=== PATIENT | female | born 1960 | race Caucasian/White ===

== ENCOUNTER 2022-10-10 03:06 | Outpatient (CLI) | payer OTHER, SELFPAY ==
[2022-10-10 08:01] LABS: ALT 25 U/L (14-59); AST 24 U/L (15-37); Albumin 3.9 g/dL (3.4-5.0); Alkaline Phosphatase 72 U/L (46-116); Anion Gap 9.4 mmol/L (3-11); BUN 13 mg/dL (7-18); Bilirubin, Total 0.5 mg/dL (0.2-1.0); CO2 26.6 mmol/L (21.0-32.0); CREATININE 0.7 mg/dL (0.55-1.02); Calcium 9.2 mg/dL (8.5-10.1); Calculated LDL 118 mg/dL (<100); Chloride 99 mmol/L (98-107); Cholesterol 219 mg/dL (<200); Estimated GFR 97.12 (mL/min/1.73m2); Glucose 111 mg/dL (74-106); HDL Cholesterol 90 mg/dL (40-60); Potassium 3.8 mmol/L (3.5-5.1); Sodium 135 mmol/L (136-145); Total Protein 7.7 g/dL (6.4-8.2); Triglyceride 57 mg/dL (<150)
== END 2022-10-10 03:07 | disposition home or self-care (01) ==
LOC: LBO 03:06
PROVIDERS: Visit Provider Nurse Practitioner Adult Health
DX: E78.00 Pure hypercholesterolemia, unspecified (principal); Z00.00 Encounter for general adult medical examination without abnormal findings; I10 Essential (primary) hypertension
CPT/HCPCS: 36415; 80053; 80061

== ENCOUNTER 2022-12-17 01:10 | Outpatient (CLI) | payer OTHER, SELFPAY ==
--- NOTE | 2022-12-17 15:15 | DI.RAD_ITS ---
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 TECHNIQUE: 2D digital imaging was performed. Three views. COMPARISON: No exams were available for comparison FINDINGS: BONES: No acute fracture is present. No bony destructive lesion is seen. JOINTS: The knee is normally aligned. No joint effusion is seen. Mild periarticular spurring. SOFT TISSUE: Normal. IMPRESSION: Mild degenerative changes DATA REPOSITORY: RADIATION DOSE DELIVERED:
== END 2022-12-17 01:30 ==
PROVIDERS: Visit Provider Nurse Practitioner Adult Health
DX: M25.562 Pain in left knee (principal); M25.862 Other specified joint disorders, left knee; G89.29 Other chronic pain
CPT/HCPCS: 73562

== ENCOUNTER 2022-12-24 15:24 | Outpatient (CLI) | payer OTHER, SELFPAY ==
--- NOTE | 2022-12-24 13:45 | DI.RAD_ITS ---
Exam(s) XR SHOULDER LT COMPLETE 2+V EXAM: XR SHOULDER LT COMPLETE 2+V CLINICAL HISTORY: Bilateral shoulder pain. TECHNIQUE: 2D digital imaging was performed of the left shoulder. Two images were obtained. AP and axillary views were obtained. COMPARISON: No exams were available for comparison FINDINGS: BONES: No acute fracture is present. No bony destructive lesion is seen. JOINTS: No dislocation present. There is near complete loss of the glenohumeral joint space. Mild owen bchondral sclerosis and periarticular spurring is seen. The acromioclavicular joint is unremarkable. SOFT TISSUE: Normal. IMPRESSION: Osteoarthritis of the left shoulder. DATA REPOSITORY: RADIATION DOSE DELIVERED:
--- NOTE | 2022-12-24 13:45 | DI.RAD_ITS ---
Exam(s) XR SHOULDER RT COMPLETE 2+V EXAM: XR SHOULDER RT COMPLETE 2+V CLINICAL HISTORY: bilateral shoulder pain. TECHNIQUE: 2D digital imaging was performed of the right shoulder. Two images were obtained. AP an d axillary views were obtained. COMPARISON: No exams were available for comparison FINDINGS: BONES: No acute fracture is present. No bony destructive lesion is seen. JOINTS: No dislocation present. Moderately severe degenerative changes are seen at the glenohumeral j oint with near complete loss of the glenohumeral joint space. There is also subchondral sclerosis an d periarticular spurring present. Mild degenerative changes are seen at the acromioclavicular joint. SOFT TISSUE: Normal. IMPRESSION: Osteoarthritis of the right shoulder. DATA REPOSITORY: RADIATION DOSE DELIVERED:
== END 2022-12-24 15:25 | disposition home or self-care (01) ==
LOC: DIORS 15:24
PROVIDERS: PCP Nurse Practitioner Adult Health; Referring Provider Nurse Practitioner Adult Health; Visit Provider Student in an Organized Health Care Education/Training Program
DX: M25.511 Pain in right shoulder (principal); M25.512 Pain in left shoulder; M19.011 Primary osteoarthritis, right shoulder; M19.012 Primary osteoarthritis, left shoulder
CPT/HCPCS: 73030

== ENCOUNTER 2023-01-09 02:28 | Outpatient (CLI) | payer OTHER, SELFPAY ==
--- NOTE | 2023-01-09 14:57 | DI.RAD_ITS ---
Exam(s) RF JOINT INJECTION FLUORO GUID EXAM: RF JOINT INJECTION FLUORO GUID CLINICAL HISTORY: R SHOULDER PAIN,fluoro guided injection,arthritis, m19.011 TECHNIQUE: Fluoroscopy provided. Radiologist not present. CONTRAST MATERIAL: None COMPARISON: No exams were available for comparison FINDINGS: Fluoroscopy was provided for Dr. Wells during right shoulder injection. Please refer to the procedure report for complete details. Cumulative Dose: Ka,r=0.134 mGy IMPRESSION: RADIATION DOSE DELIVERED:
--- NOTE | 2023-01-09 15:05 | W.PROCNOTE ---
Date of service: 01/09/23 Time of Service: 15:05 Procedure Note Date of procedure: 01/09/23 Procedure: Right Shoulder Injection Surgeon/Proceduralist/Physician: Clint Wells Procedure Diagnosis: Right Glenohumeral Arthritis Procedure Indications: Pat has had persistent pain of the RIGHT shoulder. Noninvasive measures have been tried. To serve as both diagnostic and therapeutic, an injection under fluoroscopy was recommended. I had discussed the risks of the procedure and the patient elected to proceed. Procedure Description: Pat was greeted in the flouroscopy room. The correct side was identified and the consent was reviewed with the patient and signed. The patient was then placed in the supine position on the fluoroscopy table. The RIGHT shoulder was then prepped with Chloraprep. The anterior injection starting point was identiifed by bony landmarks and fluoroscopy. The skin and soft tissue in the tract of the injection was anesthetized with 1% Lidocaine. A spinal needle was then inserted deep into the shoulder joint at the level of the recess between the glenoid and superior humeral head. A small amount of Omnipaque solution was injected to confirm intraarticular placement. Once confirmed, the shoulder was injected with 5cc of 0.5% Bupivicaine and 80mg of Depo-Medrol. A bandaid was placed on the injection site. The patient tolerated the procedure well.
[2023-01-09] MEDS: Bupivacaine 0.5% Pres-Free 10 ML VIAL 5 ML IJ (15:28)
[2023-01-09] MEDS: methylPREDNISolone ACETATE 80 MG/ML VIAL IM (15:29)
== END 2023-01-09 02:48 ==
LOC: DI 02:28
PROVIDERS: PCP Nurse Practitioner Adult Health; Visit Provider Student in an Organized Health Care Education/Training Program
DX: M19.011 Primary osteoarthritis, right shoulder (principal)
CPT/HCPCS: 20610; 77002; J1040

== ENCOUNTER 2023-01-15 01:25 | Outpatient (CLI) | payer OTHER, SELFPAY ==
--- NOTE | 2023-01-15 07:45 | DI.RAD_ITS ---
Exam(s) XR HIP RT COMPLETE AP PELVIS EXAM: XR HIP RT COMPLETE AP PELVIS CLINICAL HISTORY: eval R hip pain, m25.551. TECHNIQUE: 2D digital imaging was performed. COMPARISON: No exams were available for comparison FINDINGS: Two views: No evidence of pelvic nor hip fracture. There is minimal narrowing of the right hip joint space. No osteophytes seen. Bone density normal. No osseous lesions. SI joints unremarkable. Facet arthr opathy noted at L5-S1 level. IMPRESSION: No fractures. DATA REPOSITORY: RADIATION DOSE DELIVERED:
--- NOTE | 2023-01-15 07:45 | DI.CT_ITS ---
Exam(s) CT UPPER EXTREMITY LT WO EXAM: CT UPPER EXTREMITY LT WO CLINICAL HISTORY: PREOPERATIVE PLANNING,traumatic tear lt rotator cuff,arthritis lt TECHNIQUE: Imaging Protocol: Axial computed tomography images with coronal and sagittal reformatted images were created and reviewed. CONTRAST MATERIAL: Intravenous: Omnipaque 350 Contrast volume:structured data in ml Contrast route:I V - Oral: yes / no COMPARISON: No exams were available for comparison FINDINGS: No evidence of fracture or dislocation. Advanced severe osteoarthritic degenerative changes in the glenohumeral joint with [id number] joint space narrowing and degenerative subarticular cysts on both sides the joint space. The largest of t hese measures 10 x 9 mm in the subarticular humeral head. Also osman-type osteophyte evident on the inferior articular surface of the humeral head. AC joint exhibits only minimal degenerative changes. There are no calcifications evident in the late ral subacromial space. Small subtle calcifications are noted in the medial subacromial space. There also calcific densities noted medial to the neck of the humerus which are probably calcifications wi thin the inferior recess. Smaller calcification is noted in the medial subcoracoid recess. IMPRESSION: Severe advanced osteoarthritic degenerative changes in the left shoulder glenohumeral joint. RADIATION DOSE DELIVERED: 817.03mGy.cm Total DLP DATA REPOSITORY: All CT scans at this facility are submitted to the National Radiology Data Registry (NRDR) Dose Index Registry (DIR) with the [employer] (A[employer]). RADIATION OPTIMIZATION: All CT scans at this facility use at least one of these dose optimization te chniques: automated exposure control; mA and/or kV adjustment per patient size (includes targeted exa ms where dose is matched to clinical indication); or iterative reconstruction.
== END 2023-01-15 01:45 ==
PROVIDERS: PCP Nurse Practitioner Adult Health; Visit Provider Student in an Organized Health Care Education/Training Program
DX: M25.512 Pain in left shoulder (principal); M19.012 Primary osteoarthritis, left shoulder; M25.812 Other specified joint disorders, left shoulder; M25.551 Pain in right hip
CPT/HCPCS: 73200; 73502

== ENCOUNTER 2023-01-17 01:03 | Outpatient (CLI) | payer OTHER, SELFPAY ==
--- NOTE | 2023-01-17 08:15 | DI.MRI_ITS ---
Exam(s) MR UPPER JOINT LT WO EXAM: MR UPPER JOINT LT WO CLINICAL HISTORY: PREOPERATIVE PLANning,traumatic tear lt rotator cuff,arthritis lt glenohum. TECHNIQUE: Multiplanar multisequence MRI was performed. COMPARISON: Plain films [address] of the shoulder January 26 FINDINGS: BONES: There is no fracture or contusion pattern. JOINTS:The acromioclavicular joint shows mild degenerative changes. No evidence of impingement the g lenohumeral joint shows severe degenerative changes, with obliteration of the joint space and severe cartilage erosions extending down to bone. There is some remodeling of the glenoid. Multiple subcho ndral cysts are noted in the humeral head and glenoid. Small joint effusion. Multiple loose bodies are noted within the inferior recess as well as in the subcoracoid bursa. Synovial debris also prese nt. TENDONS: Supraspinatus: Unremarkable. Infraspinatus: Unremarkable. Subscapularis: Unremarkable. Teres Minor: Unremarkable. Biceps and Kent: Unremarkable. MUSCLES: Unremarkable. No significant atrophy. No edema. GLENOID LABRUM: Severely degenerated. SOFT TISSUES: Unremarkable. OTHER: Subacromial and subdeltoid bursae shows no fluid. . IMPRESSION: Severe degenerative changes of the glenohumeral joint. Joint effusion with multiple loose bodies and synovial debris. No evidence of rotator cuff tendon tear. DATA REPOSITORY:
== END 2023-01-17 01:23 ==
LOC: DI 01:03
PROVIDERS: PCP Nurse Practitioner Adult Health; Visit Provider Student in an Organized Health Care Education/Training Program
DX: M19.012 Primary osteoarthritis, left shoulder (principal); S46.012A Strain of muscle(s) and tendon(s) of the rotator cuff of left shoulder, initial encounter
CPT/HCPCS: 73221

== ENCOUNTER 2023-02-06 01:01 | Outpatient (CLI) | payer OTHER, SELFPAY ==
--- NOTE | 2023-02-06 15:35 | DI.RAD_ITS ---
Exam(s) RF JOINT INJECTION FLUORO GUID EXAM: RF JOINT INJECTION FLUORO GUID CLINICAL HISTORY: R HIP INJ UNDER FLUORO,rt hip pain, m25.551 TECHNIQUE: 2D and realtime digital imaging was performed. CONTRAST MATERIAL: Refer to procedure report. COMPARISON: No exams were available for comparison FINDINGS: Fluoroscopy was provided for Dr. Wells during the performance of a right hip injection. Please r efer to the procedure report for complete details. Ka,r=1.29 mGy IMPRESSION: RADIATION DOSE DELIVERED:
[2023-02-06] MEDS: methylPREDNISolone ACETATE 80 MG/ML VIAL IM (15:38)
[2023-02-06] MEDS: Omnipaque 300 MG/ML 10 ML BTL IJ (15:39)
--- NOTE | 2023-02-06 15:40 | W.PROCNOTE ---
Date of service: 02/06/23 Time of Service: 15:40 Procedure Note Date of procedure: 02/06/23 Procedure: Right Hip Injection with Fluoroscopic Guidance Surgeon/Proceduralist/Physician: Clint Wells Procedure Diagnosis: Right Hip Pain Procedure Indications: Cheryl has had persistent pain of the RIGHT hip and groin. She as some bursa symptoms but is most bothered by groin pain with going up stairs and getting out of the chair. Noninvasive measures have been tried. To serve as both diagnostic and therapeutic, an injection under fluoroscopy was recommended. I had discussed the risks of the procedure and the patient elected to proceed. Procedure Description: Cheryl was greeted in the flouroscopy room. The correct side was identified and the consent was reviewed with the patient and signed. The patient was then placed in the supine position on the fluoroscopy table. The RIGHT hip was then prepped with Chloraprep. The anterolateral injection starting point was identiifed by bony landmarks and fluoroscopy. The skin and soft tissue in the tract of the injection was anesthetized with 1% Lidocaine. A spinal needle was then inserted deep into the hip joint at the level of the lateral femoral neck under fluoroscopic guidance. A small amount of Omnipaque solution was injected to confirm intraarticular placement. Once confirmed, the hip was injected with 5cc of 0.5% Bupivicaine and 80mg of Depo-Medrol. A bandaid was placed on the injection site. The patient tolerated the procedure well.
== END 2023-02-06 01:21 ==
LOC: DI 01:01
PROVIDERS: PCP Nurse Practitioner Adult Health; Visit Provider Student in an Organized Health Care Education/Training Program
DX: M25.551 Pain in right hip (principal)
CPT/HCPCS: 20610; 77002; J1040

== ENCOUNTER 2023-03-04 02:48 | Outpatient (CLI) | payer OTHER, SELFPAY ==
--- NOTE | 2023-03-04 | DI.MAMMO_ITS ---
Exam(s) MAMMO SCREENING EXAM: MAMMO SCREENING CLINICAL HISTORY: SCREENING MAMMO FOR BREAST CANCER Z12.31 TECHNIQUE: Mammograms were interpreted according to the usual protocol including computer analysis w [employer] CAD system, tomosynthesis and C-view imaging. COMPARISON: 2015 through 2021 FINDINGS: The breasts are composed of mainly fatty density , Breast Density category A. No suspicious masses or suspicious microcalcifications are seen. No skin thickening or abnormal axillary lymph nodes are seen. There has been no significant change from prior exams. IMPRESSION: BI-RADS Category 1, Negative mammogram Yearly screening mammography is recommended. Breast Density - Category A, fatty density. A negative radiographic report should not delay biopsy if a dominant or clinically suspicious mass is present. Up to ten percent of cancers are not identified on mammography. A negative report may reinforce clinical impression. Adenosis and dense breasts may obscure an underlying neoplasm. False positive reports average 6 to 10%. Patient will receive a letter notifying them of these results.
== END 2023-03-04 03:08 ==
PROVIDERS: PCP Nurse Practitioner Adult Health; Visit Provider Nurse Practitioner Adult Health
DX: Z12.31 Encounter for screening mammogram for malignant neoplasm of breast (principal)
CPT/HCPCS: 77063; 77067

== ENCOUNTER 2023-04-24 01:19 | Outpatient (CLI) | payer OTHER, SELFPAY ==
--- NOTE | 2023-04-24 14:02 | DI.RAD_ITS ---
Exam(s) RF JOINT INJECTION FLUORO GUID EXAM: RF JOINT INJECTION FLUORO GUID CLINICAL HISTORY: PAIN,arthritis rt glenohumeral joint,m19.011,fluoro guided injection,. The Patien t has had persistent Right Shoulder pain. Noninvasive measures have been tried. To serve as both di agnostic and therapeutic, an injection under fluoroscopy was recommended. The risks of the procedure were discussed with their Orthopedic provider and the patient elected to proceed. TECHNIQUE: 2D and realtime digital imaging was performed. CONTRAST MATERIAL: Water soluble contrast was utilized. COMPARISON: No exams were available for comparison FINDINGS: The Patient was greeted in the fluoroscopy room. The correct side was identified and the consent was reviewed with the patient and was signed. The patient was properly positioned on the fluoroscopy ta ble. The Right Shoulderwas then prepped with Chloraprep and draped. The right shoulder injection st arting point was identified by the bony landmarks and fluoroscopy. The skin and soft tissue in the t ract of the injection was anesthetized with 1% Lidocaine. A spinal needle was then inserted into the RightShoulder joint at the level of the glenohumeral joint under fluoroscopic guidance. A small jame unt of Omnipaque solution was injected to confirm intraarticular placement. Once confirmed, the Righ tShoulder was injected with 5cc of a solution containing 0.5% Bupivaine and 80 mg of Depo-Medrol. A bandaid was placed on the injection site. The patient tolerated the procedure well and left the depa rtment in good condition. IMPRESSION: Successful Right Shoulder injection. RADIATION DOSE DELIVERED: Kar=2.13 mGy
[2023-04-24] MEDS: Omnipaque 300 MG/ML 10 ML BTL 5 ML IJ (14:24)
[2023-04-24] MEDS: methylPREDNISolone ACETATE 80 MG/ML VIAL IM (14:25)
[2023-04-24] MEDS: Bupivacaine 0.5% Pres-Free 10 ML VIAL 3 ML IJ (14:26)
[2023-04-24] MEDS: Normal Saline - Diluent 50 ML VIAL 15 ML IJ (14:28)
== END 2023-04-24 01:39 ==
LOC: DI 01:20
PROVIDERS: PCP Nurse Practitioner Adult Health; Visit Provider Student in an Organized Health Care Education/Training Program
DX: M19.011 Primary osteoarthritis, right shoulder (principal)
CPT/HCPCS: 20610; 77002; J1040

== ENCOUNTER 2023-09-05 09:33 | Outpatient (CLI) | payer OTHER, SELFPAY ==
--- NOTE | 2023-09-05 09:30 | RT.EKG_ITS ---
APPROVED REPORT Exam: Resting ECG Reason for Exam: Chest Pain Patient Location: O HR:141 bpm ECG Measurements Heart Rate 141 AXIS SD [id number] P [id number] QRSd 93 QRS 63 QT 304 T 47 QTc 466 Conclusion Atrial fibrillation...V-rate 97-165, irreg A-activity Minimal ST depression, anterolateral leads...ST <-0.04mV, I aVL V2-V6
== END 2023-09-05 09:34 | disposition home or self-care (01) ==
LOC: DI.CM 09:33
PROVIDERS: PCP Nurse Practitioner Adult Health; Visit Provider Physician Assistant
DX: R07.9 Chest pain, unspecified (principal)
CPT/HCPCS: 93010

== ENCOUNTER 2023-09-05 09:59 | Observation (INO) | payer OTHER, SELFPAY ==
[2023-09-05] VITALS (37 sets, daily range): BP systolic 118–191; BP diastolic 76–143; PULSE 72–178; RESP 9–39; TEMP 36.6–36.9; O2SAT 97–100
--- NOTE | 2023-09-05 | DI.US_ITS ---
APPROVED REPORT EXAM: Comprehensive 2D, Doppler, and color-flow Echocardiogram Patient Location: ER Review Manager: Shaq Arrington RDCS (AE) Indications: new onset afib Other Information Study Quality: Adequate Conclusion Borderline concentric left ventricular hypertrophy. Ejection fraction is 66%. Wall motion is normal . Diastolic function is indeterminate due to atrial fibrillation Normal right ventricular size and systolic function Left atrium is mildly dilated. Right atrium is normal in size There is no structural or hemodynamically significant valvular disease Estimated right ventricular systolic pressure is 29 mmHg Wall motion Left Ventricle The left ventricle is normal size. The left ventricular systolic function is normal. The left ventric ular ejection fraction is within the normal range. Borderline concentric left ventricular hypertrophy . There is normal LV segmental wall motion. Indeterminant due to atrial fibrillation There is no vent ricular septal defect visualized. LVEF is 66%. Right Ventricle The right ventricle is normal size. The right ventricular systolic function is normal. The RVSP is 29 .2 mmHg. Atria Left atrium is mildly dilated. The right atrium size is normal. The interatrial septum is intact with no evidence for an atrial septal defect. Aortic Valve The aortic valve is normal in structure. There is no aortic valvular stenosis. No aortic regurgitatio n is present. Mitral Valve The mitral valve is normal in structure. No evidence of mitral valve stenosis. There is no mitral beni ve regurgitation noted. Tricuspid Valve The tricuspid valve is normal in structure. There is no tricuspid valve stenosis. Trace tricuspid reg urgitation. Pulmonic Valve The pulmonary valve is normal in structure. There is no pulmonic valvular stenosis. There is no pulmo alexandra valvular regurgitation. Great Vessels The aortic root is normal in size. The ascending aorta is normal Aortic arch is normal in caliber. IV C is normal in size and collapses >50% with inspiration. Pericardium There is no pericardial effusion. 2D Dimensions IVSD d PLAX 1.00 cm F: 0.6-1.0 Ao Root d 2.85 cm F: 2.7 - 3.3 LVPW d PLAX 1.04 cm F: 0.6 - 1.0 Ao Asc Diam d 3.27 cm F: 2.3 - 3.1 LVID d PLAX 3.91 cm F: 3.8 - 5.2 LVDs 2.53 cm F: 2.2 - 3.5 LV EF Teichholz 65.3 % FS 35.25 % LV EDV (Teich) 66.4 mL LV ESV (Teich) 23.1 mL Stroke Vol Index (Teich) 19.70 M-Mode TAPSE 2.61 cm (M/F) >1.7 Auto EF LV EDV A4C 117.4 mL LV EDV A2C 121.5 mL LV EDV BP LV ESV A4C 39.0 mL LV ESV A2C 42.6 mL LV ESV BP LVEF(%) A4C 66.8 % LVEF(%) A2C 64.9 % LVEF(%) BP LV SV A4C 78.4 ml LV SV A2C 78.9 ml LV SV BP LV CO A4C 8.9 L/min LV CO A2C 8.3 L/min LV CO BP HR A4C 113.22 BPM HR A2C 104.96 BPM LV EDV Index (BP) LA Volume LA Length A4C 5.7 cm LA Length A2C LA Area A4C s 21.48 cm2 LA Area A2C s LA Vol A4C A-L 69.02 mL LA Vol A2C A-L LA Vol Biplane A-L LA Vol A4C MOD 62.3 mL LA Vol A2C MOD LA Vol BP MOD RA Volume RA Area A4C 14.0 cm2 RA ESV A4C (A-L) 30.5mL RA Vol/BSA A4C A-L RA Length A4C 5.5 cm RA ESV A4C (MOD) 30.2mL LV Diastology MV E Vmax 0.96 (0.4-1.3 m/s) MV A Vmax 0.25 (0.4-1.3 m/s) E/A Ratio 3.8 Aortic Valve AoV Vmax 1.59 m/s LVOT Vmax 1.12 m/s AoV Peak Grad 10.1 mmHg LVOT Peak Grad 5.0 mmHg AoV Area (Vmax) 1.95 cm2 LVOT VTI 0.176 m AoV VTI 0.316 m LVOT Mean Grad 2.4 mmHg AoV Mean Ronn. 1.20 m/s LVOT SV 48.89 mL AoV Mean Grad 6.4 mmHg LVOT Diam s 1.85 cm AoV Area (VTI) 1.55 cm2 Velocity Ratio 0.70 Mitral Valve MV DT 265 (160-240 msec) Pulmonary Valve PV Vmax 1.18 (0.5-1.5 m/s) RVOT Vmax 0.71 m/s PV Peak Grad 5.6 mmHg RVOT Peak Gr. 2.0 mmHg PV Mean Ronn 0.91 m/s RVOT VTI 0.133 m PV Mean Grad 3.6 mmHg RVOT Mean Gr. 1.0 mmHg Tricuspid Valve RA Pressure 3.00 mmHg TR Vmax 2.56 m/s TR Peak Grad 26.2 mmHg RVSP (TR) 29.2 mmHg
--- NOTE | 2023-09-05 10:00 | RT.EKG_ITS ---
APPROVED REPORT Exam: Resting ECG Reason for Exam: Chest pain, Dyspnea Patient Location: E HR:155 bpm ECG Measurements Heart Rate 155 AXIS MN [id number] P [id number] QRSd 90 QRS 50 QT 289 T 33 QTc 465 Conclusion Atrial fibrillation RVR rate related ST depression
--- NOTE | 2023-09-05 10:06 | ED.GENADUL_ITS ---
Discharge Plan Disposition Patient Disposition: Admit to [facility] Condition: Stable Discharge Details Clinical Impression: New onset atrial fibrillation Admit Date/Time: 09/05/23 11:26 Admit Provider: Ryan Gotti Attending Provider: Ryan Gotti Primary Care Provider: Osbaldo Dewitt ED Provider: Hallie Guerra Discharge Data Discharge Date/Time-TO BE ENTERED AT DEPARTURE: 09/05/23 13:22 Medical Decision Making Cardiac work-up ordered including CBC CMP serial troponins, Cardizem 15 mg IV push TSH. 1015: Patient was given 15 mg of Cardizem IV push heart rate is now decreased to 110-1 30, will repeat approximately 5 minutes for IV push and will consider Cardizem drip. 1107: Patient has received an additional 10 mg of Cardizem which brought her heart rate down to the 80s, at this time heart rate has increased to 110, d iscussed possible admission with patient and she is on board with. Will page the hospitalist. 1116: Spoke with Dr. Gotti hospitalist who agrees to accept patient for admission. Discussed plan of care with patient who verbalized understanding is in agreement with plan. This text was generated using [employer] dictation system, please disregard any oddities of phrase or misspellings. Lab Data Lab results reviewed: Yes I reviewed the patient's lab results. Labs: Laboratory Tests Range/Units 09/05/23 09/05/23 10:10 10:10 WBC (4.4-10.8) 10^3/uL 12.81 H RBC (3.93-5.22) 10^6/uL 4.76 Hgb (11.2-15.7) g/dL 15.2 Hct (36.0-46.0) % 42.9 MCV (80-95) fL 90 MCH (27.0-33.0) pg 31.9 MCHC (32.0-36.0) % 35.4 RDW (11.7-14.6) % 13.3 Plt Count (130-400) 10^3/uL 312 MPV (8.0-11.0) fL 9.8 Immature Gran % 0.4 Neutrophils % 76.3 Lymphocytes % 10.3 Monocytes % 11.4 Eosinophils % 0.9 Basophils % 0.7 Nucleated RBC % (0.0-0.3) % 0.0 Absolute Neutrophils (1.2-6.7) 10^3/uL 9.77 H Absolute Lymphocytes (1.2-3.4) 10^3/uL 1.32 Absolute Monocytes (0.1-0.8) 10^3/uL 1.46 H Absolute Eosinophils (0.0-0.7) 10^3/uL 0.12 Absolute Basophils (0.0-0.2) 10^3/uL 0.09 PT (9.1-11.1) sec 10.9 INR (0.9-1.1) 1.1 APTT (23.6-32.8) sec 27.7 Sodium (136-145) mmol/L 134 L Potassium (3.5-5.1) mmol/L 3.5 Chloride (98-107) mmol/L 97 L Carbon Dioxide (21.0-32.0) mmol/L 22.7 Anion Gap (3-11) mmol/L 14.3 H BUN (7-18) mg/dL 13 Creatinine (0.55-1.02) mg/dL 0.9 Est GFR (CKD-EPI 2020) (mL/min/1.73m2) 71.39 Glucose (74-106) mg/dL 118 H Calcium (8.5-10.1) mg/dL 9.4 Magnesium (1.8-2.4) mg/dL 1.4 L Total Bilirubin (0.2-1.0) mg/dL 1.0 AST (15-37) U/L 28 ALT (14-59) U/L 21 Alkaline Phosphatase (46-116) U/L 83 Troponin I (<or=60) ng/L < 50 Total Protein (6.4-8.2) g/dL 8.3 H Albumin (3.4-5.0) g/dL 4.2 TSH (0.36-3.74) uIU/mL 1.38 Cancelled HPI General Date/Time Provider Initiated Documentation: 09/05/23 10:00 . Limitations to Documentation: no limitations . Information obtained by: patient, RN notes reviewed and old records reviewed . History of Present Illness described as moderate, with intensity rated at 7. Quality is described as other, and is localized to the chest, back and right. Patient started experiencing this hour(s) and it has been constant. No relieving factors improve symptom(s), Movement worsens symptoms . Patient notes diaphoresis. HPI Narrative: 63-year-old female presents to the ER after being seen at urgent care prior to arrival. She reports that she has been under a lot of stress lately and is just finished moving. She does have some palpitation and shortness of breath and di aphoresis which began at 7 AM this morning. She does have a history of hypertension Esophagus hypercholesterolemia depression anxiety. She does not take any aspirin or blood thinners. She presents in A-fib with RVR with a rate of 148, she is hypertensive with a blood pressure in the 170 systolic she is complaining of chest discomfort heart racing she had COVID 1 month ago Related Data Home Medications Medication Instructions Recorded Confirmed atenolol 25 mg tablet (Tenormin) 25 mg PO DAILY 11/26/22 09/05/23 cholecalciferol (vitamin D3) 25 25 mcg PO DAILY 11/26/22 09/05/23 mcg (1,000 unit) capsule doxycycline hyclate 20 mg tablet 40 mg PO DAILY 11/26/22 09/05/23 estradiol 0.01% (0.1 mg/gram) 1 g vaginal QWEEK 11/26/22 09/05/23 vaginal cream hydrochlorothiazide 25 mg tablet 25 mg PO DAILY 11/26/22 09/05/23 losartan 100 mg tablet 100 mg PO DAILY 11/26/22 09/05/23 omeprazole 20 mg capsule,delayed 20 mg PO DAILY 11/26/22 09/05/23 release venlafaxine 37.5 mg 37.5 mg PO DAILY 11/26/22 09/05/23 capsule,extended release 24 hr apixaban 5 mg tablet (Eliquis) 5 mg PO BID #60 tabs 09/06/23 diltiazem HCl 180 mg 180 mg PO QAM #30 caps 09/06/23 capsule,extended release 24 hr Previous Rx's Medication Instructions Recorded apixaban 5 mg tablet (Eliquis) 5 mg PO BID #60 tabs 09/06/23 diltiazem HCl 180 mg 180 mg PO QAM #30 caps 09/06/23 capsule,extended release 24 hr Allergies Allergy/AdvReac Type Severity Reaction Status Date / Time miconazole Allergy RASH Verified 09/05/23 10:06 Sulfa (Sulfonamide Allergy Verified 09/05/23 10:06 Antibiotics) General Stated Complaint: Arrhythmia JESE: 2 Review of Systems All systems reviewed & are unremarkable except as noted in HPI and below PFSH All Active Problems (Updated 09/07/23 @ 00:02 by DALIA REYNOSO) New onset atrial fibrillation (Acute) Right hip pain (Acute) Internal derangement of left knee (Acute) Traumatic tear of left rotator cuff (Acute) Arthritis of right glenohumeral joint (Acute) Arthritis of left glenohumeral joint (Acute) Medical History Hypertension Cronin esophagus Rosacea Hypercholesteremia Menopausal syndrome Lichen sclerosus et atrophicus Depression Anxiety Social History Smoking/Tobacco Use Status: Never Smoking risk assessment performed?: Yes Alcohol Intake: current Alcohol Intake frequency: a few times a month Drug use: Occasionally Substance use type: marijuana Housing: house Current gender identity: female Do you feel safe at home: Yes Do you feel safe in your relationship?: Yes Exam Const General: cooperative, well groomed and anxious Nutritional Appearance: obese and overweight Orientation: alert, awake and oriented x3 HENMT Head: normal to inspection Ears: hearing grossly normal bilaterally General nose exam: external nose normal Mouth: oral mucosae normal Neck Neck: normal visual inspection, full ROM and supple Chest Chest: normal inspection of the chest Resp Effort & Inspection: able to speak in complete sentences, not labored, no pursed lip breathing, no respiratory distress, no stridor and no tripod positioning Auscultation: no crackles, diminished lung sounds bilaterally in the lower lung mensah, no rhonchi and no wheezes Cardio Rate: tachycardic Rhythm: abnormal rhythm irregularly irregular (Max rate 160) Heart Sounds: normal S1 and S2 and no murmurs Pulses: radial pulses present bilaterally and dorsalis pedis present bilaterally GI Inspection: normal to inspection Palpation: soft, no guarding, no masses and nontender Rectal Exam - female: deferred Back/Spine/Pelvis Back: no CVA tenderness, No ecchymosis and No back tenderness Cervical Spine: normal cervical lordosis Thoracic/Lumbar Spine: thoracic and lumbar spine normal to inspection Neuro General: patient alert, patient awake, patient oriented x3, tone normal, moves all extremities and no focal motor deficits Cognition: normal cognition Speech: speech normal Extrem General: normal exam except as noted and no pedal edema Psych Appearance: grossly normal and well kempt Mental Status: other (Mildly anxious and pressured speech) Mood: other (Mildly anxious and pressured speech) Affect: normal affect Attitude: cooperative Thought Process: normal Insight: insight good Judgment: judgment good Course See MDM Consultations Consultation #1: See MDM Vital Signs Vital signs: Vital Signs Pulse 178 H 09/05/23 10:02 Respiratory Rate 20 09/05/23 10:02 Blood Pressure 175/123 H 09/05/23 10:02 Pulse Oximetry 99 09/05/23 10:02 Temperature Source Skin 09/05/23 10:02 Pulse 178 H 09/05/23 10:02 Respiratory Rate 20 09/05/23 10:02 Blood Pressure 175/123 H 09/05/23 10:02 Blood Pressure Position Sitting 09/05/23 10:02 Pulse Oximetry 99 09/05/23 10:02 Oxygen Delivery Method Room Air 09/05/23 10:02 Oxygen Flow Rate 0 09/05/23 10:02 Pain Level 0 09/05/23 10:02 Lab/Test Results Lab/Test Results: Laboratory Tests Range/Units 09/05/23 09/05/23 10:10 10:10 WBC (4.4-10.8) 10^3/uL 12.81 H RBC (3.93-5.22) 10^6/uL 4.76 Hgb (11.2-15.7) g/dL 15.2 Hct (36.0-46.0) % 42.9 MCV (80-95) fL 90 MCH (27.0-33.0) pg 31.9 MCHC (32.0-36.0) % 35.4 RDW (11.7-14.6) % 13.3 Plt Count (130-400) 10^3/uL 312 MPV (8.0-11.0) fL 9.8 Immature Gran % 0.4 Neutrophils % 76.3 Lymphocytes % 10.3 Monocytes % 11.4 Eosinophils % 0.9 Basophils % 0.7 Nucleated RBC % (0.0-0.3) % 0.0 Absolute Neutrophils (1.2-6.7) 10^3/uL 9.77 H Absolute Lymphocytes (1.2-3.4) 10^3/uL 1.32 Absolute Monocytes (0.1-0.8) 10^3/uL 1.46 H Absolute Eosinophils (0.0-0.7) 10^3/uL 0.12 Absolute Basophils (0.0-0.2) 10^3/uL 0.09 PT (9.1-11.1) sec 10.9 INR (0.9-1.1) 1.1 APTT (23.6-32.8) sec 27.7 Sodium (136-145) mmol/L 134 L Potassium (3.5-5.1) mmol/L 3.5 Chloride (98-107) mmol/L 97 L Carbon Dioxide (21.0-32.0) mmol/L 22.7 Anion Gap (3-11) mmol/L 14.3 H BUN (7-18) mg/dL 13 Creatinine (0.55-1.02) mg/dL 0.9 Est GFR (CKD-EPI 2020) (mL/min/1.73m2) 71.39 Glucose (74-106) mg/dL 118 H Calcium (8.5-10.1) mg/dL 9.4 Magnesium (1.8-2.4) mg/dL 1.4 L Total Bilirubin (0.2-1.0) mg/dL 1.0 AST (15-37) U/L 28 ALT (14-59) U/L 21 Alkaline Phosphatase (46-116) U/L 83 Troponin I (<or=60) ng/L < 50 Total Protein (6.4-8.2) g/dL 8.3 H Albumin (3.4-5.0) g/dL 4.2 TSH (0.36-3.74) uIU/mL 1.38 Cancelled Critical Care Time Critical Care Time Critical Care Time: Yes Total Critical Care Time: 65 Attestation: I spent greater than 35 minutes addressing this patient's acute life threatening illness. This time was spent engaged in actions directly related to the patient's care. Failure to initiate these interventions would have likely resulted in clinically significant or life threatening deterioration in the patients condition.
[2023-09-05] MEDS: Aspirin 81 MG CHEW 324 MG CH (10:12)
[2023-09-05] MEDS: dilTIAZem 25 MG/5 ML VIAL 15 MG IVP (10:12)
[2023-09-05 10:19] LABS: Abs Immature Grans 0.05 10^3/uL (0.0-0.06); Absolute Basophil Count 0.09 10^3/uL (0.0-0.2); Absolute Lymphocyte Count 1.32 10^3/uL (1.2-3.4); Absolute Monocyte Count 1.46 10^3/uL (0.1-0.8); Basophils % 0.7; Eosinophils % 0.9; HCT 42.9 % (36.0-46.0); HGB 15.2 g/dL (11.2-15.7); Immature Grans % 0.4; Lymphocytes % 10.3; MCH 31.9 pg (27.0-33.0); MCHC 35.4 % (32.0-36.0); MCV 90 fL (80-95); MPV 9.8 fL (8.0-11.0); Monocytes % 11.4; Neutrophils % 76.3; Platelet Count 312 10^3/uL (130-400); RBC 4.76 10^6/uL (3.93-5.22); RDW 13.3 % (11.7-14.6); RDW-SD 44.2 fL; WBC 12.81 10^3/uL (4.4-10.8)
[2023-09-05 10:20] LABS: Absolute Eosinophil Count 0.12 10^3/uL (0.0-0.7); Absolute Neutrophil Count 9.77 10^3/uL (1.2-6.7)
[2023-09-05] MEDS: Acetaminophen 500 MG TAB 1000 MG PO (10:31)
[2023-09-05] MEDS: dilTIAZem 25 MG/5 ML VIAL 10 MG IVP (10:31)
[2023-09-05 10:33] LABS: INR 1.1 (0.9-1.1); PTT Activated 27.7 sec (23.6-32.8); Prothrombin Time 10.9 sec (9.1-11.1)
[2023-09-05] MEDS: Apixaban 5 MG TAB PO ×2 (10:40→19:49)
[2023-09-05 10:44] LABS: ALT 21 U/L (14-59); AST 28 U/L (15-37); Albumin 4.2 g/dL (3.4-5.0); Alkaline Phosphatase 83 U/L (46-116); Anion Gap 14.3 mmol/L (3-11); BUN 13 mg/dL (7-18); CO2 22.7 mmol/L (21.0-32.0); CREATININE 0.9 mg/dL (0.55-1.02); Calcium 9.4 mg/dL (8.5-10.1); Chloride 97 mmol/L (98-107); Estimated GFR 71.39 (mL/min/1.73m2); Glucose 118 mg/dL (74-106); Magnesium 1.4 mg/dL (1.8-2.4); Potassium 3.5 mmol/L (3.5-5.1); Sodium 134 mmol/L (136-145); TSH (W/Ref FT4) 1.38 uIU/mL (0.36-3.74); Total Protein 8.3 g/dL (6.4-8.2); Troponin I < 50 ng/L (<or=60)
[2023-09-05] MEDS: Magnesium Oxide 400 MG TAB 800 MG PO (10:53)
[2023-09-05] MEDS: dilTIAZem 25 MG/5 ML VIAL 20 MG IVP (11:24)
[2023-09-05] MEDS: LORazepam 2 MG/ML VIAL 0.5 MG IVP (11:24)
[2023-09-05] MEDS: Normal Saline 250 ML IV (11:25)
--- NOTE | 2023-09-05 11:29 | HPE_ITS ---
Date of service: 09/05/23 Time of Service: 11:29 Assessment and Plan Assessment and plan (1) New onset atrial fibrillation: Status: Acute Assessment and plan: Telemetry Cardizem 30 mg oral Q 6 then looking to transition to CD if controlled is maintained Started on Eliquis TSH level added to AM labs:1.38 US cardiac STAT Conclusion Borderline concentric left ventricular hypertrophy. Ejection fraction is 66%. Wall motion is normal. Diastolic function is indeterminate due to atrial fibrillation Normal right ventricular size and systolic function Left atrium is mildly dilated. Right atrium is normal in size There is no structural or hemodynamically significant valvular disease Estimated right ventricular systolic pressure is 29 mmHg (2) Heart palpitations: Status: Acute Assessment and plan: As above (3) Diaphoresis: Status: Acute Assessment and plan: As above (4) Contraindication to deep vein thrombosis (DVT) prophylaxis: Status: Acute Assessment and plan: On Eliquis (5) Obesity: Status: Chronic (6) Discharge planning issues: Status: Acute Assessment and plan: CM to f/u, no needs at this time History of Present Illness History of Present Illness Chief Complaint: palpitations, shortness of breath diaphoresis Narrative: This 63-year-old female patient with a past medical history of hypertension hypercholesterolemia, depression, anxiety, and Cronin's esophagus presented today in the emergency room at [facility] for evaluation of palpitations shortness of breath and diaphoresis starting at 7 this morning. the patient was initially seen at urgent care who referred her to this facility.On arrival to the emergency room, the patient was found to be in A-fib with RVR with a rate of 148, she was also hypertensive with a systolic blood pressure of 1 70. The patient reported chest pain and feeling her heart racing; she also had COVID 19 a month ago. Remarkable labs in the ED were elevated WBC at 12.81, sodium 134, troponin was negative. The patient was treated with IV diltiazem and achieve rate control with a heart rate in the 80s after a total dose of 25 mg. Eliquis was started. The patient also received IV lorazepam for anxiety. The hospitalist was consulted and the patient was admitted to the medical surgical unit with telemetry for evaluation and management of atrial fibrillation with rapid ventricular response. When met, the patient denied change in vision, headache, chest pain, shortness of breath, cough, hematemesis, hematochezia or melena, diarrhea or constipation.She reported anxiety from moving recently. Review of Systems Narrative: The patient is denying pain, change in vision, palpitations, shortness of breath, chest pain, abdominal pain, dysuria,constipation or diarrhea All systems reviewed & are unremarkable except as noted in HPI and below Constitutional Constitutional: Denies headache(s) Eyes Eyes: Denies blind spots, Denies change in vision and Denies loss of vision ENT Ears, Nose, Mouth, and Throat: Denies headache(s) Cardiovascular Cardiovascular: Denies chest pain, Denies diaphoresis, Denies syncope, Denies rapid heart rate, Denies edema and Denies irregular heart rhythm Respiratory Respiratory: Denies chest congestion and Denies cough Genitourinary Genitourinary: Reports system reviewed and no additional complaints, except as documented Musculoskeletal Musculoskeletal: Denies abnormal gait, Denies myalgias, Denies numbness and Denies tingling Neurologic Neurologic: Denies abnormal movements, Denies abnormal gait, Denies syncope, Denies headache(s), Denies lack of coordination, Denies localized weakness, Denies loss of vision, Denies memory loss, Denies numbness and Denies tingling Psychiatric Psychiatric: Reports system reviewed and no additional complaints, except as documented and Denies memory loss PFSH All Active Problems (Updated 09/05/23 @ 19:05 by Laurel Calle APRN) Obesity (Chronic) Contraindication to deep vein thrombosis (DVT) prophylaxis (Acute) Discharge planning issues (Acute) Diaphoresis (Acute) Heart palpitations (Acute) New onset atrial fibrillation (Acute) Right hip pain (Acute) Internal derangement of left knee (Acute) Traumatic tear of left rotator cuff (Acute) Arthritis of right glenohumeral joint (Acute) Arthritis of left glenohumeral joint (Acute) Medical History Hypertension Cronin esophagus Rosacea Hypercholesteremia Menopausal syndrome Lichen sclerosus et atrophicus Depression Anxiety Social History Smoking/Tobacco Use Status: Never Smoking risk assessment performed?: Yes Alcohol Intake: current Alcohol Intake frequency: a few times a month Drug use: Occasionally Substance use type: marijuana Housing: house Current gender identity: female Do you feel safe at home: Yes Do you feel safe in your relationship?: Yes Meds Allergies and Home Medications Allergies Allergy/AdvReac Type Severity Reaction Status Date / Time miconazole Allergy RASH Verified 09/05/23 10:06 Sulfa (Sulfonamide Allergy Verified 09/05/23 10:06 Antibiotics) Home Medications Medication Instructions Recorded Confirmed Type atenolol 25 mg tablet (Tenormin) 25 mg PO DAILY 11/26/22 09/05/23 History cholecalciferol (vitamin D3) 25 25 mcg PO DAILY 11/26/22 09/05/23 History mcg (1,000 unit) capsule doxycycline hyclate 20 mg tablet 40 mg PO DAILY 11/26/22 09/05/23 History estradiol 0.01% (0.1 mg/gram) 1 g vaginal QWEEK 11/26/22 09/05/23 History vaginal cream hydrochlorothiazide 25 mg tablet 25 mg PO DAILY 11/26/22 09/05/23 History losartan 100 mg tablet 100 mg PO DAILY 11/26/22 09/05/23 History omeprazole 20 mg capsule,delayed 20 mg PO DAILY 11/26/22 09/05/23 History release venlafaxine 37.5 mg 37.5 mg PO DAILY 11/26/22 09/05/23 History capsule,extended release 24 hr Exam Narrative Exam Narrative: Constitutional The patient is sitting in bed comfortable and cooperative during the interview. The patient is well groomed without acute distress and has obese body. HENMT: Head is atraumatic, normocephalic, no lymphadenopathy. Facial structures with normal appearance Eyes: Well aligned, intact ROM Neck: Normal ROM, Neuro:alert and oriented to self, person, place, time and situation. No neurological focal deficit Chest:Chest is symmetrical and normal appearance Resp: Normal respiratory pattern, speaks in full sentences, unlabored breathing, clear lung bilaterally Cardio: regular sinus rhythm on tele, S1, S2, no murmur, capillary refill<3 sec., bilateral radial and dorsalis pedis pulses are positive GI: Abdomen is round, not distended, soft and non tender, bowel sounds are present Back/spine/Pelvis: normal alignment Integumentary: No skin lesions or rash Extremities: strength 5/5 to bilateral lower and upper extremities Psych: RASS 0, congruent mood and normal to anxious affect. Results Labs 09/05/23 10:10 09/05/23 10:10 Labs: Laboratory Results - last 24 hr 09/05/23 09/05/23 10:10 10:10 WBC 12.81 H RBC 4.76 Hgb 15.2 Hct 42.9 MCV 90 MCH 31.9 MCHC 35.4 RDW 13.3 Plt Count 312 MPV 9.8 Immature Gran % 0.4 Neutrophils % 76.3 Lymphocytes % 10.3 Monocytes % 11.4 Eosinophils % 0.9 Basophils % 0.7 Nucleated RBC % 0.0 Absolute Neutrophils 9.77 H Absolute Lymphocytes 1.32 Absolute Monocytes 1.46 H Absolute Eosinophils 0.12 Absolute Basophils 0.09 PT 10.9 INR 1.1 APTT 27.7 Sodium 134 L Potassium 3.5 Chloride 97 L Carbon Dioxide 22.7 Anion Gap 14.3 H BUN 13 Creatinine 0.9 Est GFR (CKD-EPI 2020) 71.39 Glucose 118 H Calcium 9.4 Magnesium 1.4 L Total Bilirubin 1.0 AST 28 ALT 21 Alkaline Phosphatase 83 Troponin I < 50 Total Protein 8.3 H Albumin 4.2 TSH 1.38 Cancelled Last Vital Signs Pulse 72 09/05/23 10:46 Resp 10 L 09/05/23 10:46 BP 174/96 H 09/05/23 10:46 Pulse Ox 99 09/05/23 10:46 PAWSS Have you Been Recently Intoxicated or Drunk Within the Last 30 days?: No Have you Ever Experienced Previous Episodes of Alcohol Withdrawal?: No Have you ever Experienced Withdrawal Seizures?: No Have you ever Experienced Delirium Tremens(DT)s?: No Have you ever undergone Alcohol Rehabilitation Treatment (i.e, inpt ot outpatient treatment programs)?: No Have you ever Experienced Blackouts?: No Have you ever Combined Alcohol with other Downers within the last 90 days?: No Have you ever Combined Alcohol with any other Substance of Abuse during the last 90 days?: No Positive Blood Alcohol level on Presentation? [PCS.BAL]: No Evidence of Increased Autonomic Activity (i.e. HR>120, tremor, sweating, agitation, nausea)?: No Result: 0 Time Spent Time spent with Patient: >75 minutes Time was spent: preparing to see the patient(eg.review tests), obtaining and/or reviewing separately otained hiistory, ordering medications,tests, procedures, referring, communicating with other health physician locums urgent care, indepentently interpreting results, counseling the patient and care coordination
[2023-09-05 13:26] LABS: Troponin I < 50 ng/L (<or=60)
--- NOTE | 2023-09-05 15:45 | RT.EKG_ITS ---
APPROVED REPORT Exam: Resting ECG Reason for Exam: Conversion from A fib to SR Patient Location: I HR:90 bpm ECG Measurements Heart Rate 90 AXIS KS 154 P 50 QRSd 104 QRS 46 QT 369 T 41 QTc 452 Conclusion Sinus rhythm...normal P axis, V-rate 50- 99 Left atrial enlargement...P, P'>60mS, <-0.15mV V1 Otherwise normal ECG
[2023-09-05] MEDS: dilTIAZem 30 MG TAB PO ×2 (17:00→23:20)
[2023-09-05 17:14] LABS: Troponin I < 50 ng/L (<or=60)
[2023-09-05] MEDS: MAGNESIUM SULFATE 4 GM/100 ML BAG IVPB (17:32)
[2023-09-05] MEDS: LORazepam 0.5 MG TAB PO (19:49)
[2023-09-05] MEDS: Acetaminophen 325 MG TAB 650 MG PO (20:38)
[2023-09-05] MEDS: Omeprazole 20 MG CAPCR PO (23:21)
[2023-09-06] MEDS: Acetaminophen 325 MG TAB 650 MG PO (03:00)
[2023-09-06 03:04] VITALS: BP 146/80; PULSE 83; RESP 17; TEMP 36.7; O2SAT 97
[2023-09-06] MEDS: dilTIAZem 30 MG TAB PO ×2 (05:00→10:40)
[2023-09-06 07:20] LABS: Abs Immature Grans 0.01 10^3/uL (0.0-0.06); Absolute Basophil Count 0.06 10^3/uL (0.0-0.2); Absolute Eosinophil Count 0.13 10^3/uL (0.0-0.7); Absolute Lymphocyte Count 0.97 10^3/uL (1.2-3.4); Absolute Monocyte Count 0.66 10^3/uL (0.1-0.8); Absolute Neutrophil Count 4.19 10^3/uL (1.2-6.7); Eosinophils % 2.2; HCT 36.7 % (36.0-46.0); HGB 12.8 g/dL (11.2-15.7); Immature Grans % 0.2; Lymphocytes % 16.1; MCH 31.8 pg (27.0-33.0); MCHC 34.9 % (32.0-36.0); MCV 91 fL (80-95); MPV 10.1 fL (8.0-11.0); Neutrophils % 69.5; Platelet Count 221 10^3/uL (130-400); RBC 4.02 10^6/uL (3.93-5.22); RDW 13.5 % (11.7-14.6); RDW-SD 46.2 fL; WBC 6.02 10^3/uL (4.4-10.8)
[2023-09-06 07:30] LABS: Anion Gap 9.1 mmol/L (3-11); BUN 8 mg/dL (7-18); CO2 26.9 mmol/L (21.0-32.0); CREATININE 0.5 mg/dL (0.55-1.02); Calcium 8.7 mg/dL (8.5-10.1); Chloride 102 mmol/L (98-107); Estimated GFR 104.67 (mL/min/1.73m2); Glucose 100 mg/dL (74-106); Potassium 3.3 mmol/L (3.5-5.1); Sodium 138 mmol/L (136-145)
[2023-09-06 07:41] VITALS: BP 157/89; PULSE 98; RESP 20; TEMP 36.8; O2SAT 98
[2023-09-06] MEDS: Atenolol 25 MG TAB PO (08:13)
[2023-09-06] MEDS: Venlafaxine 37.5 MG CAPCR PO (08:14)
[2023-09-06] MEDS: Cholecalciferol (Vitamin D3) 1,000 UNIT TAB 1000 UNITS PO (08:14)
[2023-09-06] MEDS: Apixaban 5 MG TAB PO (08:14)
[2023-09-06] MEDS: hydroCHLOROthiazide 25 MG TAB PO (08:14)
[2023-09-06] MEDS: Normal Saline Flush 10 ML SYR IVP (08:20)
--- NOTE | 2023-09-06 09:56 | INITIAL_ITS ---
Date of service: 09/06/23 Time of Service: 09:56 Care Management Initial Assmt Initial Assessment REASON FOR HOSPITALIZATION:: afib with RVR PREVIOUS FUNCTIONAL STATUS/SOCIAL/FAMILY SUPPORTS:: Cheryl lives in [place], [place] with her life partner Tacos Menard. 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 She has no children but her partner has grown children. She is independent at baseline and does not receive any community services. CURRENT FUNCTIONAL STATUS:: Cheryl was sitting up in a chair when CM met with her. She was pleasant in interaction and engaged well with CM. Pat informed CM that she will be discharging this afternoon. She was admitted with afib with RVR but is now rate controlled. Cheryl shared that she recently built a home with her partner on [address] and they just moved on . She has friends waiting at home to help unpack so she is anxious to get home. ADVANCE DIRECTIVES:: none on file Has patient been provided with info about the portal/API?: Yes Did the patient sign up for the portal?: Yes CODE STATUS:: Full Code INSURANCE COVERAGE / FINANCIAL ISSUES:: [employer] CURRENT HOME/COMMUNITY SERVICES/EQUIPMENT:: none PRIMARY CARE PHYSICIAN:: Osbaldo Yu POTENTIAL DISCHARGE NEEDS:: follow up with cardiology, PCP and plan of care PATIENT/FAMILY EDUCATION NEEDS:: review of discharge instructions, limitations, follow up plan, discuss Ask me Three TRANSPORTATION:: via private vehicle with partner PLAN:: Cheryl will be discharged home with no new services. She will follow up with Cardiology, her PCP and plan of care. CM will follow and continue to assess for discharge needs. PFSH All Active Problems (Updated 09/05/23 @ 19:05 by Laurel Calle APRN) Obesity (Chronic) Contraindication to deep vein thrombosis (DVT) prophylaxis (Acute) Discharge planning issues (Acute) Diaphoresis (Acute) Heart palpitations (Acute) New onset atrial fibrillation (Acute) Right hip pain (Acute) Internal derangement of left knee (Acute) Traumatic tear of left rotator cuff (Acute) Arthritis of right glenohumeral joint (Acute) Arthritis of left glenohumeral joint (Acute) Medical History Hypertension Cronin esophagus Rosacea Hypercholesteremia Menopausal syndrome Lichen sclerosus et atrophicus Depression Anxiety Social History Smoking/Tobacco Use Status: Never Smoking risk assessment performed?: Yes Alcohol Intake: current Alcohol Intake frequency: a few times a month Drug use: Occasionally Substance use type: marijuana Housing: house Current gender identity: female Do you feel safe at home: Yes Do you feel safe in your relationship?: Yes
--- NOTE | 2023-09-06 10:54 | W.PM.DS.N ---
Date of service: 09/06/23 Time of Service: 10:55 DS: Diagnosis Discharge Diagnosis (1) New onset atrial fibrillation: Status: Acute (2) Heart palpitations: Status: Acute (3) Diaphoresis: Status: Acute (4) Contraindication to deep vein thrombosis (DVT) prophylaxis: Status: Acute (5) Obesity: Status: Chronic (6) Discharge planning issues: Status: Acute Discharge Plan Disposition Patient Disposition: Home Condition: Improving Discharge Details Reason For Visit: New Onset Atrial Fibrillation With RVR Admit Date/Time: 09/05/23 11:26 Admit Provider: Ryan Gotti Attending Provider: Ryan Gotti Primary Care Provider: Osbaldo Dewitt Hospital Course Hospital Course: This 63-year-old female patient with a past medical history of hypertension hypercholesterolemia, depression, anxiety, and Cronin's esophagus presented on to the emergency room at [facility] for evaluation of palpitations, shortness of breath and diaphoresis starting at 7AM. The patient was initially seen at urgent care who referred her to this facility.On arrival to the emergency room, the patient was found to be in A-fib with RVR with a rate of 148, she was also hypertensive with a systolic blood pressure of 170. The patient reported chest pain and feeling her heart racing; she also had COVID-19 a month ago. Remarkable labs in the ED were elevated WBC at 12.81, sodium 134, troponin was negative. The patient was treated with IV diltiazem and achieve rate control with a heart rate in the 80s after a total dose of 25 mg when discussed; an additionnal 20 mg of IVP Cardizem was given in the ED later on. Eliquis was started. The patient also received IV lorazepam for anxiety. The hospitalist was consulted and the patient was admitted to the medical surgical unit with telemetry for evaluation and management of atrial fibrillation with rapid ventricular response. When met, the patient denied change in vision, headache, chest pain, shortness of breath, cough, hematemesis, hematochezia or melena, diarrhea or constipation.At the time the patient's rate and rhythm were regular and as per STAT EKG, the patient's rhythm converted to sinus rhythm. She reported anxiety from moving recently and PRN lorazepam ordered as patient felt she could benefit from it. The patient was treated with oral Diltiazem immediate release overnight, Losartan was held and is to be restarted as per PCP.The patient remained in a sinusal rhythm overnight.Echo showed and EF of 66%. Diltiazem CD 180 mg orally administered today.The patient will need a follow-up with cardiology in the next 1-2 weeks, and her primary care provider in the next week. Home Meds and New Rx's Prescriptions: New diltiazem HCl 180 mg capsule,extended release 24hr 180 mg PO QAM Qty: 30 0RF Eliquis 5 mg tablet 5 mg PO BID Qty: 60 0RF Continued atenolol [Tenormin] 25 mg tablet 25 mg PO DAILY cholecalciferol (vitamin D3) 25 mcg (1,000 unit) capsule 25 mcg PO DAILY doxycycline hyclate 20 mg tablet 40 mg PO DAILY estradiol 0.01 % (0.1 mg/gram) cream 1 g vaginal QWEEK hydrochlorothiazide 25 mg tablet 25 mg PO DAILY omeprazole 20 mg capsule,delayed release(DR/EC) 20 mg PO DAILY venlafaxine 37.5 mg capsule,extended release 24hr 37.5 mg PO DAILY Held losartan 100 mg tablet 100 mg PO DAILY Hold Instructions: Resume on 09/08/23. As per PCP Discharge Instructions Stand Alone Forms: Nursing Discharge Form Referrals: Katharina Kulkarni MD [ [facility] STAFF PHYSICIAN] - 09/08/23 9:00 am (This 63-year-old female patient with a past medical history of hypertension hypercholesterolemia, depression, anxiety, and Cronin's esophagus presented to the emergency room at [facility] for evaluation of palpitations, shortness of breath and diaphoresis.On arrival to the emergency room, the patient was found to be in A-fib with RVR with a rate of 148, she was also hypertensive with a systolic blood pressure of 1 70. The patient reported chest pain and feeling her heart racing; she also had COVID 19 a month ago. Trop negative X2. The patient was treated with IV diltiazem and achieve rate control with a heart rate in the 80s after a total dose of 45 mg, discharged on Diltiazem CD 180 mg , holding losartan and restarting as per PCP. Eliquis was started. Echo done EF 60%) Osbaldo Dewitt [Primary Care Provider] - 09/08/23 (New A-Fib with RVR, on Cardizem, need to reevaluate need for losartan that is currently held ) Activity:: Activity as Tolerated Equipment/Supplies:: Walker Diet:: heart healthy Discharge Orders Discharge Orders: Discharge Order (Routine); Ordered 09/06/23 Ordered By: Laurel Calle DS: Summary Time Spent with Patient providing and/or coordinating discharge services: Greater than 30 minutes Status at Discharge Functional status at discharge: independent ambulation Overall status at discharge: patient is back to baseline Mental Status: mental status grossly normal Speech and Movement: speech and movement normal Mood: congruent mood Affect: normal affect Exam Psych Mental Status: mental status grossly normal Speech and Movement: speech and movement normal Mood: congruent mood Affect: normal affect DS: Data Vitals/I&O Vitals and I&O: Vital Signs Temperature 36.8 C 09/06/23 07:41 Temperature Source Tympanic 09/06/23 07:41 Pulse 98 H 09/06/23 07:41 Pulse Rhythm Irregular 09/06/23 08:00 Pulse 98 H 09/05/23 12:31 Respiratory Rate 20 09/06/23 07:41 Respiratory Effort Normal, Non-Labored 09/06/23 08:00 Respiratory Depth Normal 09/06/23 08:00 Respiratory Pattern Normal 09/06/23 08:00 Blood Pressure 157/89 H 09/06/23 07:41 Blood Pressure Mean 148 09/05/23 12:46 Blood Pressure Position Sitting 09/05/23 10:02 Pulse Oximetry 98 09/06/23 07:41 Oxygen Delivery Method Room Air 09/06/23 07:41 Oxygen Flow Rate 0 09/06/23 07:41 Pain Level 0 09/06/23 07:41 Intake & Output 09/05/23 09/05/23 09/06/23 11:59 23:59 11:59 Intake Total 350 / 350 250 / 250 Balance 350 / 350 250 / 250 Weight 107.501 kg 107.501 kg Intake: IV 350 / 350 10 Oral 240 / 240 Other: Urine Color Yellow Yellow Urine Appearance Clear Clear Urine Odor None None Stool Size Moderate Moderate Stool Characteristics Soft Soft Voiding Methods Toilet Data Completed and Pending Labs on day of discharge: Labs from last 24 hours 09/06/23 09/06/23 09/05/23 Unknown 06:30 16:45 WBC 6.02 RBC 4.02 Hgb 12.8 D Hct 36.7 MCV 91 MCH 31.8 MCHC 34.9 RDW 13.5 Plt Count 221 MPV 10.1 Immature Gran % 0.2 Neutrophils % 69.5 Lymphocytes % 16.1 Monocytes % 11.0 Eosinophils % 2.2 Basophils % 1.0 Nucleated RBC % 0.0 Absolute Neutrophils 4.19 Absolute Lymphocytes 0.97 L Absolute Monocytes 0.66 Absolute Eosinophils 0.13 Absolute Basophils 0.06 Sodium 138 Potassium 3.3 L Chloride 102 Carbon Dioxide 26.9 Anion Gap 9.1 BUN 8 Creatinine 0.5 L Est GFR (CKD-EPI 2020) 104.67 Glucose 100 Calcium 8.7 Troponin I < 50 Add-On Test Request Pending 09/05/23 09/05/23 12:58 11:44 WBC RBC Hgb Hct MCV MCH MCHC RDW Plt Count MPV Immature Gran % Neutrophils % Lymphocytes % Monocytes % Eosinophils % Basophils % Nucleated RBC % Absolute Neutrophils Absolute Lymphocytes Absolute Monocytes Absolute Eosinophils Absolute Basophils Sodium Potassium Chloride Carbon Dioxide Anion Gap BUN Creatinine Est GFR (CKD-EPI 2020) Glucose Calcium Troponin I < 50 Add-On Test Request TNP PFSH All Active Problems (Updated 09/05/23 @ 19:05 by Laurel Calle APRN) Obesity (Chronic) Contraindication to deep vein thrombosis (DVT) prophylaxis (Acute) Discharge planning issues (Acute) Diaphoresis (Acute) Heart palpitations (Acute) New onset atrial fibrillation (Acute) Right hip pain (Acute) Internal derangement of left knee (Acute) Traumatic tear of left rotator cuff (Acute) Arthritis of right glenohumeral joint (Acute) Arthritis of left glenohumeral joint (Acute) Medical History Hypertension Cronin esophagus Rosacea Hypercholesteremia Menopausal syndrome Lichen sclerosus et atrophicus Depression Anxiety Social History Smoking/Tobacco Use Status: Never Smoking risk assessment performed?: Yes Alcohol Intake: current Alcohol Intake frequency: a few times a month Drug use: Occasionally Substance use type: marijuana Housing: house Current gender identity: female Do you feel safe at home: Yes Do you feel safe in your relationship?: Yes Time Spent with Patient Time Spent with Patient: >85 minutes Time was spent: preparing to see the patient(eg.review tests), ordering medications,tests, procedures, referring, communicating with other health youth career specialist, indepentently interpreting results, counseling the patient and care coordination
[2023-09-06 11:34] VITALS: BP 127/79; PULSE 74; TEMP 37.2; O2SAT 98
[2023-09-06 11:44] LABS: Lab Add On Test DONE
[2023-09-06 14:31] VITALS: BP 141/94; PULSE 75; TEMP 37; O2SAT 99
--- NOTE | 2023-09-06 14:33 | PDOC.CMDIS ---
Date of service: 09/06/23 Time of Service: 14:33 LACE Index Scoring Tool Questions: Length of Stay (in days): 1 Was the patient admitted via the E.D.?: Yes E.D. Visits: 1 Answers: Total Score: 5 Risk of Readmission: Low Risk Care Management Discharge Plan Reason for Hospitalization: afib with RVR Discharge Plan: Cheryl will be discharged home with no new services. She will follow up with Cardiology, her PCP and plan of care and transport with [facility]. Patient/Family Education Needs: review of discharge instructions, limitations, follow up plan, discuss Ask me Three
[2023-09-06] MEDS: dilTIAZem CD 120 MG CAPCR PO (14:42)
== END 2023-09-06 16:35 | disposition home or self-care (01) | DRG 310 ==
LOC: ER 11:18 → MS 13:54
PROVIDERS: Nurse Practitioner Acute Care; Admitting Provider Family Medicine; Emergency Provider Registered Nurse Emergency; PCP Nurse Practitioner Adult Health; Visit Provider Family Medicine
DX: I48.91 Unspecified atrial fibrillation (principal); R61 Generalized hyperhidrosis; E66.9 Obesity, unspecified; Z68.36 Body mass index [BMI] 36.0-36.9, adult; I10 Essential (primary) hypertension; E78.00 Pure hypercholesterolemia, unspecified; F32.A Depression, unspecified; F41.9 Anxiety disorder, unspecified; K22.70 Barrett's esophagus without dysplasia; R06.02 Shortness of breath; F12.90 Cannabis use, unspecified, uncomplicated; R07.89 Other chest pain; Z86.16 Personal history of COVID-19
CPT/HCPCS: 00123; 36415; 80048; 80053; 93005; 96361; 96374; 96375; 96376; 99291; 83735; 84443; 84484; 85025; 85610; 85730; 93010; 93306; 99223; 99239; J2060; J3475

== ENCOUNTER 2024-03-02 06:11 | Day surgery (SDC) | payer BC, SELFPAY ==
[2024-03-02 06:25] VITALS: BP 143/86; PULSE 62; RESP 16; TEMP 36.5; O2SAT 98
--- NOTE | 2024-03-02 06:43 | W.ANESPRE ---
General Info Date of Service Date Performed: 03/02/24 Height: 5 ft 8 in Weight: 106.3 kg Body Mass Index (BMI): 35.6 Surgical Procedure: Operation Date: 03/02/24 07:40 Proposed Procedure Side Surgeon p Wrist ECTR Left Clint Wells MD s Trigger Thumb Release Left Clint Wells MD Meds Allergies and Home Medications Allergies Allergy/AdvReac Type Severity Reaction Status Date / Time ragweed pollen Allergy Intermediate Other (See Verified 03/02/24 06:35 Comment) Sulfa (Sulfonamide Allergy Unknown Other (See Verified 03/02/24 06:35 Antibiotics) Comment) miconazole Allergy RASH Verified 03/02/24 06:35 Home Medication Medication Instructions Recorded atenolol 25 mg tablet (Tenormin) 25 mg PO DAILY 11/26/22 cholecalciferol (vitamin D3) 25 25 mcg PO DAILY 11/26/22 mcg (1,000 unit) capsule doxycycline hyclate 20 mg tablet 40 mg PO DAILY 11/26/22 estradiol 0.01% (0.1 mg/gram) 1 g vaginal QWEEK 11/26/22 vaginal cream hydrochlorothiazide 25 mg tablet 25 mg PO DAILY 11/26/22 omeprazole 20 mg capsule,delayed 20 mg PO DAILY 11/26/22 release venlafaxine 37.5 mg 37.5 mg PO DAILY 11/26/22 capsule,extended release 24 hr apixaban 5 mg tablet (Eliquis) 5 mg PO BID #60 tabs 09/06/23 diltiazem HCl 240 mg capsule,24 240 mg PO DAILY 02/27/24 hr,extended release acetaminophen 500 mg tablet 500 mg PO Q6H PRN pain #60 tabs 03/02/24 Current Visit Medications: Current Medications Generic Name Dose Route Start Last Admin Trade Name Freq PRN Reason Stop Dose Admin Ringer's Solution 1,000 mls @ 80 mls/hr 03/02/24 06:00 IV 03/02/24 23:59 INFUSION TAMMY Cefazolin Sodium/Dextrose 2 gm in 50 mls @ 100 mls/hr 03/02/24 06:00 Ancef Duplex IVPB 03/02/24 23:59 PREOP TAMMY IV Miscellaneous Supplies 1 each 03/02/24 06:00 Iv Access IV 03/02/24 23:59 DIRECTED TAMMY Sodium Chloride 0 ml 03/02/24 06:00 Normal Saline Flush 10 Ml Syr IV 03/02/24 23:59 PRN PRN Sodium Chloride 0 ml 03/02/24 06:00 Normal Saline 10 Ml Vial IJ 03/02/24 23:59 DIRECTED PRN Sterile Water 0 ml 03/02/24 06:00 Water,Injection,Sterile 10 Ml Vial IJ 03/02/24 23:59 DIRECTED PRN PFSH Active Problems Active Problems: Problem Status Onset Code Trigger thumb, left thumb M65.312 Carpal tunnel syndrome, left G56.02 New onset atrial fibrillation I48.91 Right hip pain M25.551 Internal derangement of left knee M23.92 Traumatic tear of left rotator cuff S46.012A Arthritis of right glenohumeral joint M19.011 Arthritis of left glenohumeral joint M19.012 Medical History Medical History A-fib Dx 2022 Obesity Diaphoresis Heart palpitations afib Hypertension Cronin esophagus Rosacea Hypercholesteremia Menopausal syndrome Lichen sclerosus et atrophicus Depression Anxiety Surgical History Surgical History History of Ramy fundoplication Tobacco Smoking/Tobacco Use Status: Never Alcohol Alcohol Intake: current Alcohol intake frequency: a few times a month Substance Use Substance use: Occasionally Substance use type: marijuana Details: pt last used marijuana 02/28/24 Vital Signs and Lab Results Vital Signs Most Recent Vital Signs in EMR: Most Recent Vital Signs Temp Pulse Resp BP Pulse Ox 36.5 C 62 16 143/86 H 98 03/02/24 06:25 03/02/24 06:25 03/02/24 06:25 03/02/24 06:25 03/02/24 06:25 Lab Results Blood Type / Crossmatch: No Data to Display Complete Blood Count: No Data to Display Complete Metabolic Panel: No Data to Display Liver Function Panel: No Data to Display Coagulation Panel: No Data to Display Cardiac Panel: No Data to Display Arterial Blood Gas: No Data to Display Venous Blood Gas: No Data to Display Pancreas Panel: No Data to Display Thyroid Panel: No Data to Display Infectious Disease: No Data to Display Blood Cultures: No Data to Display Toxicology Panel: No Data to Display Imaging and Studies Imaging and Studies Study information below may be from another EMR and interpreted by another provider. Please see original notes in EMR for more complete details. EKG Summary: EKG PATIENT NAME: Sandie Manriquez UNIT #: [id number] ORDERING PROVIDER: Laurel Calle CAMILO PRIMARY CARE PROVIDER: OSBALDO CACERES NP DATE/TIME OF SERVICE: 09/05/23 1613 : 1960 PERFORMING LOCATION: [place] APPROVED REPORT Exam: Resting ECG Reason for Exam: Conversion from A fib to SR Patient Location: I HR:90 bpm ECG Measurements Heart Rate 90 AXIS OH 154 P 50 QRSd 104 QRS 46 QT 369 T41 QTc 452 Conclusion Sinus rhythm...normal P axis, V-rate 50- 99 Left atrial enlargement...P, P'>60mS, <-0.15mV V1 Otherwise normal ECG <Electronically signed by LYUDMILA GONZALEZ MD in [facility]> E-Sign Date: 09/08/23 E-Sign Time: 0835 Echocardiogram Summary: Patient Name: Sandie Manriquez Unit #: [id number] Loc: [place] Ordering Provider: AlvaLaurel CAMILO Status: ADM IN Primary Care Provider: Osbaldo Caceres Date of Exam: 09/05/23 Sex: F Admission Date: 09/05/23 : 1960 Age: 63 APPROVED REPORT EXAM: Comprehensive 2D, Doppler, and color-flow Echocardiogram Patient Location: ER [place] Captain: Shaq Arrington RDCS ([place]) Indications: new onset afib Other Information Study Quality: Adequate Conclusion Borderline concentric left ventricular hypertrophy. Ejection fraction is 66%. Wall motion is normal. Diastolic function is indeterminate due to atrial fibrillation Normal right ventricular size and systolic function Left atrium is mildly dilated. Right atrium is normal in size There is no structural or hemodynamically significant valvular disease Estimated right ventricular systolic pressure is 29 mmHg Wall motion Left Ventricle The left ventricle is normal size. The left ventricular systolic function is normal. The left ventricular ejection fraction is within the normal range. Borderline concentric left ventricular hypertrophy. There is normal LV segmental wall motion. Indeterminant due to atrial fibrillation There is no ventricular septal defect visualized. LVEF is 66%. Right Ventricle The right ventricle is normal size. The right ventricular systolic function is normal. The RVSP is 29.2 mmHg. Atria Left atrium is mildly dilated. The right atrium size is normal. The interatrial septum is intact with no evidence for an atrial septal defect. Aortic Valve The aortic valve is normal in structure. There is no aortic valvular stenosis. No aortic regurgitation is present. Mitral Valve The mitral valve is normal in structure. No evidence of mitral valve stenosis. There is no mitral valve regurgitation noted. Tricuspid Valve The tricuspid valve is normal in structure. There is no tricuspid valve stenosis. Trace tricuspid regurgitation. Pulmonic Valve The pulmonary valve is normal in structure. There is no pulmonic valvular stenosis. There is no pulmonic valvular regurgitation. Great Vessels The aortic root is normal in size. The ascending aorta is normal Aortic arch is normal in caliber. IVC is normal in size and collapses >50% with inspiration. Pericardium There is no pericardial effusion. 2D Dimensions IVSD d PLAX 1.00 cm F: 0.6-1.0Ao Root d 2.85 cm F: 2.7 - 3.3 LVPW d PLAX 1.04 cm F: 0.6 - 1.0Ao Asc Diam d 3.27 cm F: 2.3 - 3.1 LVID d PLAX 3.91 cm F: 3.8 - 5.2 LVDs 2.53 cm F: 2.2 - 3.5 LV EF Teichholz 65.3 % FS35.25 % LV EDV (Teich)66.4 mL LV ESV (Teich)23.1 mL Stroke Vol Index (Teich)19.70 M-Mode TAPSE 2.61 cm (M/F) >1.7 Auto EF LV EDV K2C258.4 mLLV EDV F7R089.5 mLLV EDV BP LV ESV A4C39.0 mLLV ESV A2C42.6 mLLV ESV BP LVEF(%) A4C66.8 %LVEF(%) A2C64.9 %LVEF(%) BP LV SV A4C78.4 mlLV SV A2C78.9 mlLV SV BP LV CO A4C8.9 L/minLV CO A2C8.3 L/minLV CO BP HR K0E775.22 BPMHR N0Q256.96 BPMLV EDV Index (BP) LA Volume LA Length A4C5.7 cmLA Length A2C LA Area A4C s 21.48 cm2LA Area A2C s LA Vol A4C A-L69.02 mLLA Vol A2C A-LLA Vol Biplane A-L LA Vol A4C MOD62.3 mLLA Vol A2C MODLA Vol BP MOD RA Volume RA Area A4C14.0 cm2RA ESV A4C (A-L)30.5mLRA Vol/BSA A4C A-L RA Length A4C5.5 cmRA ESV A4C (MOD)30.2mL LV Diastology MV E Vmax 0.96 (0.4-1.3 m/s) MV A Vmax 0.25 (0.4-1.3 m/s) E/A Ratio 3.8 Aortic Valve AoV Vmax1.59 m/sLVOT Vmax 1.12 m/s AoV Peak Grad10.1 mmHgLVOT Peak Grad 5.0 mmHg AoV Area (Vmax)1.95 [id number] VTI0.176 m AoV VTI0.316 mLVOT Mean Grad 2.4 mmHg AoV Mean Ronn.1.20 m/sLVOT SV 48.89 mL AoV Mean Grad6.4 mmHgLVOT Diam s 1.85 cm AoV Area (VTI)1.55 cm2 Velocity Ratio 0.70 Mitral Valve MV DT 265 (160-240 msec) Pulmonary Valve PV Vmax 1.18 (0.5-1.5 m/s)RVOT Vmax 0.71 m/s PV Peak Grad 5.6 mmHgRVOT Peak Gr.2.0 mmHg PV Mean Vel0.91 m/sRVOT VTI0.133 m PV Mean Grad 3.6 mmHgRVOT Mean Gr.1.0 mmHg Tricuspid Valve RA Pressure 3.00 mmHgTR Vmax 2.56 m/s TR Peak Grad 26.2 mmHg RVSP (TR) 29.2 mmHg Ordered By: Laurel Calle APRN CC: Dictated By: Lyudmila Gonzalez M.D. 09/05/23 1318 <Electronically signed by Lyudmila Gonzalez M.D. in [place]> 09/05/23 1326 Transcribed By: Lyudmila Gonzalez MD 09/05/23 5977 This is privileged, confidential information intended only for the provider named. Any use or distribution by any person other than this provider is strictly prohibited. If you receive this report in error, please notify us immediately at [phone] and return the original report to us at the address above. Thank-you. Anesthesia Assessment and Plan Anesthesia History Personal History: No History of Anesthesia Complications Family History: No Family History of Anesthesia Complications Exercise Tolerance Exercise Tolerance: Metabolic Equivalents>4 Pertinent Negatives Pertinent Negatives: No Symptoms of GERD, No Major Pulmonary Symptoms or Complaints and No History of CVA/TIA Cardiac & Pulmonary Exam Cardiac Exam: Other (Afib) Pulmonary Exam: Clear Bilateral Breath Sounds Implantable Cardiac Device Does patient have a Pacemaker or an ICD?: No Airway Exam Known Difficult Airway: No Mallampati Class: 3 Mouth Opening: Normal (> 3cm) Thyromental Distance: Greater than 3 cm Neck Range of Motion: Full ROM Neck Circumference: Normal Teeth Condition: Normal Dentition ASA Classification ASA Score: ASA 3 Emergency Case?: No NPO Status NPO Status: NPO Clears >2 hours, Solids >8 hours Anesthesia Plan Resuscitation Status: Full Code Anesthesia Technique: General Anesthesia Airway Planned: Natural Airway Monitors Used: Standard Monitors
[2024-03-02 06:48] VITALS: BMI 35.6
[2024-03-02] MEDS: Lactated Ringers 1,000 ML 80 ML IV (06:52)
--- NOTE | 2024-03-02 07:13 | PDOC.DSDIS_ITS ---
Date of service: 03/02/24 Time of Service: 07:15 Discharge Plan Disposition Patient Disposition: Home Condition: Good Discharge Details Reason For Visit: Left trigger thumb; left carpal tunnel syndrome Attending Provider: Clint Wells Primary Care Provider: Osbaldo Dewitt Home Meds and New Rx's Prescriptions: New acetaminophen 500 mg tablet 500 mg PO Q6H PRN (Reason: pain) Qty: 60 2RF Continued atenolol [Tenormin] 25 mg tablet 25 mg PO DAILY cholecalciferol (vitamin D3) 25 mcg (1,000 unit) capsule 25 mcg PO DAILY doxycycline hyclate 20 mg tablet 40 mg PO DAILY estradiol 0.01 % (0.1 mg/gram) cream 1 g vaginal QWEEK hydrochlorothiazide 25 mg tablet 25 mg PO DAILY omeprazole 20 mg capsule,delayed release(DR/EC) 20 mg PO DAILY venlafaxine 37.5 mg capsule,extended release 24hr 37.5 mg PO DAILY Eliquis 5 mg tablet 5 mg PO BID Qty: 60 0RF diltiazem HCl 240 mg capsule,extended release 24 hr 240 mg PO DAILY Discharge Instructions Stand Alone Forms: Anesthesia Discharge Inst., Ida Hassan ([facility]), [place] C. Tunnel Release, [place] T. Finger Release Referrals: Clint Wells MD [ [facility] STAFF PHYSICIAN] - 03/15/24 9:00 am Activity:: Activity as Tolerated Remove Dressings/Wound Care:: 48 hours Shower/Bathe:: 48 hours Diet:: As Tolerated Discharge Orders Discharge Orders: Discharge Order (Routine); Ordered 03/02/24 Ordered By: Myra Theodore
[2024-03-02] MEDS: ceFAZolin 2 GM/50 ML BAG IVPB (07:26)
[2024-03-02] MEDS: Lidocaine 1% Multi-Dose W/EPI 1/100,000 50 ML VIAL (07:41)
[2024-03-02] MEDS: Sodium Bicarbonate 50 MEQ/50 ML VIAL (07:41)
[2024-03-02 07:51] VITALS: BP 136/60; PULSE 59; RESP 16; TEMP 36; O2SAT 97
--- NOTE | 2024-03-02 08:01 | W.ANESPOSTOP ---
Postoperative Evaluation Date, Time and Location Date Performed: 03/02/24 Time Performed: 08:01 Patient Location: Day Surgery Unit Vital Signs Most Recent Imported Vital Signs: Most Recent Vital Signs Temp Pulse Resp BP Pulse Ox 36 C L 59 L 16 136/60 97 03/02/24 07:51 03/02/24 07:51 03/02/24 07:51 03/02/24 07:51 03/02/24 07:51 Pain Score Most Recent Pain Score: Most Recent Pain Score Pain Level 0 03/02/24 07:51 Assessment Mental Status: Awake (Alert & Oriented to Patient Baseline) Airway and Respiratory Function: Patent airway with normal (patient baseline) respiratory exam Cardiovascular Function: Hemodynamically Stable Hydration Status: Adequately Hydrated Nausea & Vomiting: No Nausea or Vomiting Pain: Pt. Denies Any Pain Peripheral Nerve Block: Patient did not receive a nerve block
--- NOTE | 2024-03-02 08:09 | ROE_ITS ---
Date of service: 03/02/24 Time of Service: 07:40 Operative Note Operative Note DATE OF PROCEDURE: 03/02/24 PRE-OP DIAGNOSIS: Left Carpal Tunnel Syndrome Left Trigger Thumb POST-OP DIAGNOSIS: same PROCEDURE: Left Endoscopic Carpal Tunnel Release Left Thumb A1 Gopi Release SURGEON: Clint Wells ANESTHESIA TYPE: General:No Airway Refer to Anesthesia Record ESTIMATED BLOOD LOSS: 0 PATHOLOGY: none sent TOURNIQUET TIME: 10 COMPLICATIONS: None Patient was transported to: same day Patient's condition: stable Indications: I have seen Pat in clinic for symptoms of carpal tunnel syndrome as well as a trigger thumb. The numbness, tingling, and pain limited function in addition to limited motion and triggering of the thumb. Clinical exam findings with nerve conduction tests confirmed the diagnosis of carpal tunnel syndrome along with an actively triggering thumb. Nonoperative measures such as bracing, time, acti vity modifications had been tried but disability and pain persisted. I discussed carpal tunnel release with the patient. I reviewed the risks of the procedure to include, but not limited to, bleeding, infection, pain, stiffness, incomplete release, damage to nerves or vessels, persistent numbness, recurrence. Despite these risks, the patient elected to proceed. Findings: There was tightened carpal tunnel. This was dilated and released successfully with the endoscopic with increased space within the tunnel. The antebrachial fascia was released proximally freeing the median nerve at the wrist. Procedure Description: Cheryl was greeted in the preoperative holding area where the correct side was identified and marked. The consent was reviewed with the patient and signed. The history and physical was updated. All questions were answered. She was taken back to the operating room. The patient was placed into the supine position on the operating room table with the left arm on an arm board. A nonsterile tourniquet was placed high onto the arm. All bony prominences were well padded. Prophylactic antibiotics in the form of Cefazolin were administered. The left arm was then prepped with Chloraprep and draped in a standard fashion with stockinette and extremity drape. A timeout to confirm correct identity, side and site, procedure, allergies, anesthesia, and medical concerns was performed. The surgical sites were marked in the volar wrist creases in line with the radial border of the fourth ray and directly over the A1 gopi of the thumb. These areas were anesthetized with approximately 10cc of 1% Lidocaine with Epinephrine, buffered with sodium bicarbonate. The limb was then exsanguinated with an Esmarch. The skin was incised with a 15 blade, approximately 1cm. The skin only was cut and the deeper tissue was dissected bluntly with a tenotomy scissor, avoiding passing nerve and venous structures. The fascia was penetrated and opened bluntly. A two-prong skin hook was placed under this proximal fascial edge. A series of hamate finders were used to identify and dilate the carpal tunnel. Synovial elevator was used to free synovial attachments to the underside of the transverse carpal ligament. My thumb was kept in the palm to hillary the distal extent of the carpal tunnel and correctly position the hand. The [employer] endoscope was inserted without difficulty and without resistance. Excellent visualization showed horizontally running fibers of the transverse carpal ligament (TCL). The distal extent of the TCL was visualized and the end of the scope palpated with the thumb. The blade was elevated and withdrawn from distal to proximal. The TCL was split into two flaps. The endoscope was reinserted to confirm complete release and any remnant ligament was incised. The scope was withdrawn and the proximal aspect of the carpal tunnel was grossly inspected and appeared release with the median nerve visible. The antebrachial fascia at the level of the wrist was then freed from the overlying skin and then the underlying median nerve with blunt dissection. This was transected longitudinally for about 3cm proximal to the wrist incision. The wound was then irrigated with easy flow of irrigant distally and proximally. The incision was closed with a single 4-0 Nylon suture. Attention was then turned to the thumb. A longitudinal incision was made through skin only, approximately 1cm. The deep tissues were dissected bluntly. Once the A1 gopi and flexor tendons were identified the soft tissue including neurovascular structures were retracted medially and laterally. There were no crossing structures over the A1 gopi. The proximal edge of the gopi was identified and the gopi was incised with tenotomy scissors. There was a release of the tendons once this was fully released. The tendons were then removed from the wound and inspected. Excess synovium was resected. The tendons were then returned and the patient was asked to move the finger into deep flexion and back to extension. There was no recreation of the pre- operative symptoms. The hand was then once more inspected for any A0 gopi or area of possible constriction. The wound was then irrigated and the skin was closed with a 4-0 Nylon. The wound was dressed with Xeroform, Gauze, Kerlix and Gee. The tourniquet was deflated with the initial dressing and held with some pressure. Blood flow returned easily to all digits with capillary refill less than 2 seconds. The patient tolerated the procedure well and was returned to the Same Day Surgery area in a stable condition suffering no known complication.
[2024-03-02 08:30] VITALS: BP 146/77; PULSE 58; RESP 16; TEMP 36.2; O2SAT 98
== END 2024-03-02 09:31 | disposition home or self-care (01) ==
PROVIDERS: PCP Nurse Practitioner Adult Health; Visit Provider Student in an Organized Health Care Education/Training Program
PROC: 01N54ZZ Release Median Nerve, Percutaneous Endoscopic Approach (ICD-10-PCS; CPT 29848; principal; 2024-03-02 07:30)
PROC: (CPT 26055; 2024-03-02 07:30)
DX: G56.02 Carpal tunnel syndrome, left upper limb (principal); M65.312 Trigger thumb, left thumb; I48.91 Unspecified atrial fibrillation
CPT/HCPCS: 29848; 26055; J0131; J0690; J2004; J2405; J2704

== ENCOUNTER 2024-03-15 11:03 | Outpatient (CLI) | payer BC, SELFPAY ==
--- NOTE | 2024-03-15 08:45 | DI.RAD_ITS ---
Exam(s) XR KNEE RT 3V AP,LAT,SUKHDEV EXAM: XR KNEE RT 3V AP,LAT,SUKHDEV CLINICAL HISTORY: RIGHT KNEE PAIN. TECHNIQUE: 2D digital imaging was performed. COMPARISON: CR XR KNEE LT 3V AP,LAT,SUKHDEV from 03/15/2024 FINDINGS: 3 views No evidence of fracture. Small amount of increased joint fluid noted. No significant joint space na rrowing although there are small marginal osteophytes in the lateral compartment indicating an elemen t of degenerative change. There is also a small osteophytic density seen adjacent to the outer aspec t of the lateral femoral condyle, this in the region of the fibular collateral ligament. Does not ross ve the appearance of an acute fracture fragment. IMPRESSION: Mild degenerative changes as described above in the lateral compartment. DATA REPOSITORY: RADIATION DOSE DELIVERED:
--- NOTE | 2024-03-15 08:45 | DI.RAD_ITS ---
Exam(s) XR KNEE LT 3V AP,LAT,SUKHDEV EXAM: XR KNEE LT 3V AP,LAT,SUKHDEV CLINICAL HISTORY: LEFT KNEE PAIN. TECHNIQUE: 2D digital imaging was performed. COMPARISON: CR XR KNEE LT 3V AP,LAT,SUKHDEV from 12/17/2022 FINDINGS: 3 views No evidence of fracture. Small joint effusion noted. Mild degenerative changes are noted medial lat eral compartments. Slightly more so in the medial compartment. Minimal if any significant radiograp hic change when compared to 12/17/2022. Bone density normal. No osseous lesions. IMPRESSION: As above. No significant radiographic change compared to 12/17/2022. DATA REPOSITORY: RADIATION DOSE DELIVERED:
== END 2024-03-15 11:04 | disposition home or self-care (01) ==
LOC: DIORS 11:03
PROVIDERS: PCP Nurse Practitioner Adult Health; Visit Provider Student in an Organized Health Care Education/Training Program
DX: M25.561 Pain in right knee (principal); M25.562 Pain in left knee
CPT/HCPCS: 73562

== ENCOUNTER 2024-09-16 02:46 | Outpatient (CLI) | payer BC, SELFPAY ==
--- NOTE | 2024-09-16 | DI.MRI_ITS ---
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 COMPARISON: CR XR KNEE RT 3V AP,LAT,SUKHDEV from 03/15/2024 FINDINGS: EFFUSION: There is a prominent knee joint effusion. There is a septated Wolf cyst in the medial pop liteal fossa which measures approximately 5 cm length. It is 1 cm wide. It does not contain loose b odies nor debris therein. MARROW:There is some subarticular edema in intercondylar anterior distal femur. No abnormal signal i n the tibial plateau nor in the fibular head and neck. No ominous osseous lesions. PATELLOFEMORAL COMPARTMENT: The quadriceps tendon is intact. The patellar ligament is intact. There is subcutaneous edema anterior to the lower patella and anterior to the patellar ligament. There is advanced high-grade thinning of the entire retropatellar cartilage over both medial lateral facets. There are multiple small foci of subarticular bone edema in the posterior patella. Also deg enerative subarticular edema and bone cysts in the anterior aspect of the lateral femoral condyle-int ercondylar notch.There is no intraosseous signal to suggest recent patellar dislocation. There are no patellar retinacular tears. CRUCIATE LIGAMENTS: The anterior cruciate ligament is intact. Posterior cruciate ligament is intact. MEDIAL COMPARTMENT/MEDIAL MENISCUS:There is complex tearing and attenuation of the posterior horn of the medial meniscus. Some myxoid degeneration signal seen in the anterior horn. . There is significant thinning of the articular cartilage over the entire weight-bearing surface of th e medial femoral condyle. There does not appear to be significant subarticular bone edema. No osteo chondral defects. Small marginal osteophytes noted off the inner and outer aspects of the medial con dyle. MEDIAL COLLATERAL LIGAMENT: Intact LATERAL COMPARTMENT/LATERAL MENISCUS: There is complex oblique/horizontal tearing of both the anterio r and posterior horns of the lateral meniscus. There is significant loss of articular cartilage over the weight-bearing surface of the lateral condyle. Subarticular bone edema is seen in the most ante rior aspect of the lateral femoral condyle probably related more so to the patellofemoral compartment degenerative change.There are marginal osteophytes off the outer aspect of the lateral femoral condy le ILIOTIBIAL BAND: Intact LATERAL COLLATERAL LIGAMENT COMPLEX: The fibular collateral ligament is intact. The biceps femoris t endon is intact.Some fluid is noted in the popliteus tendon sheath. IMPRESSION: 1. There are tears of both the anterior posterior horns of the lateral meniscus and posterior horn of the medial meniscus, as described above. There are no flipped meniscal fragments. 2. There is significant cartilage thinning in both the medial lateral compartments as described above . There are no osteochondral defects. Small osteophytes are noted off the outer aspects of both fem oral condyles. 3. There is advanced chondromalacia thinning of the entire retropatellar cartilage and there is some subarticular patchy bone edema in the posterior patella. 4. There are no cruciate ligament tears nor obvious collateral ligament tears although there does davonte ear to be a small amount of fluid in the popliteus tendon sheath component of the lateral collateral ligament complex. 5. There is a prominent joint effusion and there is a septated Wolf cyst in the medial popliteal fo ssa noted measuring approximately 5 cm length by 1 cm wide and not containing debris therein. DATA REPOSITORY:
== END 2024-09-16 03:06 ==
LOC: DI 02:46
PROVIDERS: PCP Nurse Practitioner Adult Health; Visit Provider Student in an Organized Health Care Education/Training Program
DX: M23.222 Derangement of posterior horn of medial meniscus due to old tear or injury, left knee (principal)
CPT/HCPCS: 73721

== ENCOUNTER 2024-09-27 08:23 | Outpatient (CLI) | payer BC, SELFPAY ==
--- NOTE | 2024-09-27 08:15 | RT.EKG_ITS ---
APPROVED REPORT Exam: Resting ECG Reason for Exam: AFIB Patient Location: O HR:58 bpm ECG Measurements Heart Rate 58 AXIS DE 199 P 0 QRSd 114 QRS 15 QT 425 T 22 QTc 418 Conclusion Sinus rhythm...normal P axis, V-rate 50- 99 Poor R wave progression
== END 2024-09-27 08:24 | disposition home or self-care (01) ==
LOC: DI.CARD 08:23
PROVIDERS: PCP Nurse Practitioner Family; Visit Provider Registered Nurse
DX: I48.91 Unspecified atrial fibrillation (principal)
CPT/HCPCS: 93010

== ENCOUNTER 2024-09-30 00:14 | Outpatient (CLI) | payer BC, SELFPAY ==
--- NOTE | 2024-09-30 | DI.MAMMO_ITS ---
Exam(s) MAMMO SCREENING EXAM: MAMMO SCREENING CLINICAL HISTORY: Z12.31 Screening TECHNIQUE: Mammograms were interpreted according to the usual protocol including computer analysis w [id number] CAD system, tomosynthesis and C-view imaging. COMPARISON: 2015 through 2022 FINDINGS: The breasts are composed of mainly fatty density , Breast Density category A. No suspicious masses or suspicious microcalcifications are seen. No skin thickening or abnormal axillary lymph nodes are seen. There has been no significant change from prior exams. IMPRESSION: BI-RADS Category 1, Negative mammogram Yearly screening mammography is recommended. Breast Density - Category A, fatty density. A negative radiographic report should not delay biopsy if a dominant or clinically suspicious mass is present. Up to ten percent of cancers are not identified on mammography. A negative report may reinforce clinical impression. Adenosis and dense breasts may obscure an underlying neoplasm. False positive reports average 6 to 10%. Patient will receive a letter notifying them of these results.
--- NOTE | 2024-09-30 | DI.DEXA_ITS ---
Exam(s) XR DEXA BONE DENSITY W/WO ELIEZER EXAM: XR DEXA BONE DENSITY W/WO ELIEZER CLINICAL HISTORY: N95.9 Screening osteoporosis TECHNIQUE: [employer] C densitometer analysis of left hip, lumbar spine and left forearm. Lat eral survey image of the thoracic and lumbar spine. COMPARISON: No exams were available for comparison FINDINGS: Lateral view of the thoracic and lumbar spine shows no evidence of compression fractures. Bone mineral density measurements of the lumbar spine correspond to a total T-score of 1.4, in the no rmal range. Bone mineral density measurements of the left hip correspond to a total T-score of -1.0. The femora l neck T-score is -1.0, at the lower range of normal. Theleft forearm bone mineral density measurements correspond to a T-score of the distal 3rd of -0.4. IMPRESSION: Normal bone mineral density.
--- OUTSIDE RECORDS SUMMARY | 2024-09-30 00:18 | XMS_ITS | Referral Summary ---
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 Name Role Phone Osbaldo Dewitt NP Primary Care Provider [phone] Encounters Date Type Department Care Team Description 09/07/2024 10:45 EST Office Visit [address] [address] Osbaldo Dewitt NP Encounter for annual physical exam (Primary Dx); Need for vaccination; Encounter for screening mammogram for malignant neoplasm of breast; Menopausal and postmenopausal disorder; Cervical cancer screening; Class 2 obesity due to excess calories without serious comorbidity with body mass index (BMI) of 35.0 to 35.9 in adult; Atrial fibrillation, unspecified type ([facility]); Anxiety 08/16/[address] [address] Osbaldo Dewitt NP Medications Refill 08/16/[address] [address] Osbaldo Dewitt NP Medications Refill from Last 3 Months Allergies Active Allergy Reactions Criticality Noted Date Comments Miconazole Rash 04/20/2019 burn Other - See Comments 10/02/2019 dust mites - sinus issues Pollen Extracts 10/02/2019 sinus issues Sulfa (Sulfonamide Antibiotics) Rash 10/02/2019 sulfa 1 of 2 sulfa 2 of 2 Medications fluticasone propionate (FLONASE) 50 mcg/actuation nasal spray Instill 2 Sprays into both nostrils daily as needed. 5 Active cholecalciferol , Vitamin D3, 1,000 unit tablet Take 1 Tablet by mouth daily. Active ZBSCWNO-KDSR-CM ETB-EPYX-RCRNNO ORAL Take by mouth. Activ e acetaminophen (TYLENOL) 500 mg tablet Take 2 Tablets by mouth 2 times daily. PRN Active omeprazole (PRILOSEC) 20 mg capsuleIndicati ons:Gastroesoph ageal reflux disease TAKE ONE CAPSULE BY MOUTH AT BEDTIME 90 Capsule 3 3 Active dilTIAZem (CARDIZEM CD) 180 mg ER capsule Take 1 Capsule by mouth every morning. 90 Capsule 3 3 Active Additional Information Patient taking differently: 240 mgoral EVERY MORNING, Reported on 09/07/2024 doxycycline (PERIOSTAT) 20 mg tabletIndicatio ns:Rosacea TAKE TWO TABLETS BY MOUTH ONCE A DAY 180 Tablet 3 4 Active atenoloL (TENORMIN) 25 mg tablet TAKE ONE TABLET BY MOUTH ONCE DAILY 90 Tablet 3 4 Active ELIQUIS 5 mg tablet TAKE ONE TABLET BY MOUTH TWICE A DAY 180 Tablet 3 4 Active estradioL (ESTRACE) 0.01 % (0.1 mg/gram) vaginal cream Place 0.5 g vaginally twice a week. 42.5 g 2 4 Active clobetasoL (TEMOVATE) 0.05 % ointment APPLY TOPICALLY TWICE DAILY NEEDED 30 g 1 4 Active venlafaxine (EFFEXOR-XR) 75 mg XR capsuleIndicati ons:Anxiety Take 1 Capsule by mouth daily. 30 Capsule 2 4 Active flecainide (TAMBOCOR) 100 mg tabletIndicatio ns:Atrial fibrillation, unspecified type (HCC-CMS) Take 1 Tablet by mouth 2 times daily. 180 Tablet 1 4 Active hydroCHLOROthia zide (HYDRODIURIL) 25 mg tablet Take 1 Tablet by mouth daily. 90 Tablet 3 3 024 Discontin ued(Abstr action) venlafaxine (EFFEXOR-XR) 37.5 mg XR capsuleIndicati ons:Anxiety,Dep ression, unspecified depression type TAKE ONE CAPSULE BY MOUTH ONCE DAILY 90 Capsule 3 4 024 Discontin ued(Dose adjustmen t) flecainide (TAMBOCOR) 100 mg tablet Take 1 Tablet by mouth 2 times daily. 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 Dr. Romero recs to repeat now only if symptomatic - consider repeat in 2024 per pt preference. Hypertension 11/02/2019 Immunizations Name Administration Dates Next Due Covid-19 mRNA Pediatric Vacc ine (MODERNA PEDIATRIC COVID-19) PF 0.5 mL IM (6-11 yrs) 08/28/2021 Covid-19 mRNA Vaccine (MODER NA COVID-19) PF 0.5 ml IM (12 yrs+) 08/28/2021,01/25/2021,12/28/2020 Covid-19 mRNA-LNP 2023-24 Va ccine (MODERNA COVID-19) PF 0.5 mL IM (12 yrs+) 07/25/2023 Covid-19 mRNA-LNP 2023- Va ccine (MODERNA COVID-19) PF 0.5 mL IM (12 yrs+) 07/06/2024 Covid-19 mRNA-LNP Bivalent V accine (PFIZER BIVALENT VACCINE) PF 0.3 mL IM (12 yrs+) 07/25/2022 Historical Influenza Vaccine , Unspecified 07/06/2024,07/25/2022 Influenza Vaccine Quad (AFLU EDENILSON) PF 0.5 ml IM (3 yrs+) 07/07/2020,07/08/2017,10/14/2016 Influenza Vaccine Quad PF 0. 5 ml IM (6 mos+) 07/25/2023,07/25/2022,08/13/2021,2018 Pneumococcal Conjugate Vacci ne 20-Valent (PCV20) (PREVNAR-20) 0.5 mL IM (6 wks+) 09/07/2024 RSV Vaccine, PreF, Recombina nt, Subunit, Adjuvanted (AREXVY) PF 0.5 mL IM (60 yrs+) 07/25/2023 RSV Vaccine, PreF, Subunit, Bivalent (ABRYSVO) PF 0.5 mL IM (60 yrs+, 32-36 wks preg) 07/06/2024 Shingrix (Zoster Vaccine, Recombinant) IM 08/13/2021,02/20/2021 Td (Adult) 5 Lf Vaccine (TEN IVAC) Preservative Free =>7yo IM 05/05/2014,10/06/2005 Tdap Vaccine =>7YO IM 11/18/2022 Social History Tobacco Use Types Packs/Day Years Used Date Smoking Tobacco: Former Cigarettes 1 6 - 1977 Smokeless Tobacco: Never Alcohol Use Standard Drinks/Week Comments Not Currently 0 (1 standard drink = 0.6 oz pur e alcohol) 2/night [facility] Utilities Answer Date Recorded In the past 12 months has e Ethical Deal, gas, oil, or water [employer] threatened to shut off services in your home? No 08/25/2024 AUDIT-C Answer Date Recorded Q1: How often do you have a drink containing alcohol? 4 or more times a week 12/05/2020 Q2: How many drinks containi ng alcohol do you have on a typical day when you are drinking? 1 or 2 Q3: How often do you have si x or more drinks on one occasion? Not asked 12/05/2020 Overall Financial Resource Strain (CARDIA) Answe r Date Recorded How hard is it for you to pa y for the very basics like food, housing, medical care, and heating? Not hard at all 10/15/2023 PHQ-2 Answer Date Recorded PHQ-2 SUBTOTAL 2 08/25/2024 Hunger Vital Sign Answer Date Recorded Within the past 12 months, y ou worried that your food would run out before you got the money to buy more. Never true 08/25/20 24 Within the past 12 months, t he food you bought just didn't last and you didn't have money to get more. Never true 08/25/2024 PRAPARE - Transportation Answer Date Re corded In the past 12 months, has l ack of transportation kept you from medical appointments or from getting medications? No 10/06 In the past 12 months, has l ack of transportation kept you from meetings, work, or from getting things needed for daily living? No 10/15/2023 Housing Stability Vital Sign Answer Hussain e Recorded In the last 12 months, was t here a time when you were not able to pay the mortgage or rent on time? No 10/15/2023 In the last 12 months, how many places have you lived? 2 10/15/2023 In the last 12 months, was t here a time when you did not have a steady place to sleep or slept in a group home (including now)? No 10/15/2023 C - Inadequate Housing Answer Date Re corded What is your living situation today? I have a [facility] [place] place to live 08/25/[address] you li ve. Do you have problems with any of the following? None of the above 08/25/2024 [facility] - Transportation Answer Date Record ed In the past 12 months, has l ack of reliable transportation kept you from medical appointments, meetings, work or from getting things needed for daily living? No 08/25/2024 [facility] - Personal Safety Answer Date Recor ded How often does anyone, inclu ding family and friends, physically hurt you? Never 08/25/2024 How often does anyone, robbin mcneil family and friends, insult or talk down to you? Never 08/25/2024 How often does anyone, robbin mcneil family and friends, threaten you with harm? Never 08/25/2024 How often does anyone, robbin mcneil family and friends, scream or curse at you? Never 08/25/2024 [facility] - Financial Strain Answer Date Mango rded How hard is it for you to pa y for the very basics like food, housing, medical care, and heating? Would you say it is: Not hard at all 08/25/2024 [facility] - Employment Answer Date Recorded Do you want help finding or keeping work or a job? I do not need or want help 08/25/2024 [facility] - Social Connections Answer Date Re corded If for any reason you need h elp with day-to-day activities such as bathing, preparing meals, shopping, managing finances, etc., do you get the help you need? I don't need any help 08/25/2024 How often do you feel lonely or isolated from those around you? Rarely 08/25/2024 [facility] - Education Answer Date Recorded Do you speak a language other than Slovak at the rehabilitation institute? No 08/25/2024 Do you want help with school or training? For example, starting or completing job training or getting a high school diploma, GED or equivalent. No 08/25/2024 [facility] - Physical Activity Answer Date Rec orded In the last 30 days, other t mauricio the activities you did for work, on average, how many days per week did you engage in moderate exercise (like walking fast, running, jogging, dancing, swimming, biking, or other similar activities)? 2 2023 On average, how many minutes did you usually spend exercising at this level on one of those days? 20 08/25/2024 Interpersonal Safety Answer Date Record ed How often does anyone, robbin mcneil family, hit, punch or physically hurt you? 10/15/2023 How often does anyone, robbin mcneil family, insult, scream, curse or threaten to hurt you? 10/15/2023 Education Answer Date Recorded What is the highest level of school you have completed or the highest degree you have received? 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 Not on file Not on tone e Last Filed Vital Signs Vital Sign Reading Time Taken Comments Blood Pressure 130/80 09/07/2024 1035 EST Pulse 64 09/07/2024 1035 EST Temperature 36.2 ??C (97.2 ??F) 11/18/2022 1422 EST Respiratory Rate 18 09/07/2024 1035 EST Oxygen Saturation 99% 09/16/2023 0953 EST Inhaled Oxygen Concentration - - Weight 108.4 kg (239 lb) 09/07/2024 1035 EST Height 175.3 cm (5' 9.02) 09/07/2024 1035 EST Body Mass Index 35.27 09/07/2024 1035 EST Plan of Treatment Upcoming Encounters Date Type Department Care Team (Late st Contact Info) Description 11/11/2024 15:[address] [facility] [place] [phone] Osbaldo Dewitt, SG [address] [place] [address] Procedures Procedure Name Priority Date/Time Associated Diagnosis Comments PAP TEST Routine 09/07/2024 11:43 EST Cervical cancer screening HPV DNA DETECTION WITH GENOTYPING, PCR Today 09/07/2024 11:43 EST Cervical cancer screening MA BREAST SCREENING JULIAN BILATERAL Routine 03/01/2022 8:05 EDT Encounter for screening mammogram for malignant neoplasm of breast LIPID PROFILE (INCLUDES CHOLESTEROL, TRIGLYCERIDES, HDL, LDL) Routine 12/15/2020 7:37 EST from Last 3 Months or Most Recently Relevant to Health Maintenance Results * PAP TEST (09/07/2024 11:43 EST) Specimens A. Cervix and/or Endocervix , ThinPrep Imaging System with Manual Evaluation 09/14/2024 14:06 [facility] Specimen Adequacy Satisfactory for Evaluation - assessment of transformation zone component not applicable ( e.g. atrophy, vaginal sample, hysterectomy) 09/14/2024 14:06 [facility] General Categorization Negative for intraepithelial lesion or malignancy 09/14/2024 14:06 [facility] Attestation . 09/14/2024 14:06 [facility] at 1406 Clinical History Screening cervical cancer 09/14/2024 14:06 [facility] Performing Lab [facility] 09/14/2024 14:06 [facility] Scanned Images 09/14/2024 14:06 [facility] HPV High Risk type 16, PCR Negative 09/14/2024 14:06 [facility] HPV High Risk type 18, PCR Negative 09/14/2024 14:06 [facility] HPV Other High Risk Types, PCR Negative The following Other High Risk HPV types were not detected: 31,33, 35, 39, 45, 51, 52, 56, 58, 59, 66 and 68. 09/14/2024 14:06 [facility] Pap Test CERVIX UTERI STRUCTURE / Unknown 09/07/2024 11:43 EST 09/07/2024 11:43 EST us Osbaldo Dewitt NP PATHOLOGY ORDERABLES Final Res ult [facility] [address], [place] [id number] * HPV DNA DETECTION WITH GENOTYPING, PCR (09/07/2024 11:43 EST) HPV High Risk type 16, PCR Negative Negative 09/14/2024 14:06 EST [facility] HPV High Risk type 18, PCR Negative Negative 09/14/2024 14:06 EST [facility] HPV other High Risk types, PCR Negative Negative 09/14/2024 14:06 EST [facility] Comment: The following Other High Risk HPV types were not detected: ??31,33, 35, 39, 45, 51, 52, 56, 58, 59, 66 and 68. Pap Test CERVIX UTERI STRUCTURE / Unknown 09/07/2024 11:43 EST 09/13/2024 10:39 EST us Osbaldo Dewitt NP MICROBIOLOGY - GENERAL ORDERAB LES Final Result [facility] [address] [place] [address] * MA BREAST SCREENING JULIAN BILATERAL (03/01/2022 8:05 EDT) Anatomical Region Laterality Modality Breast Bilateral Mammography 03/01/2022 14:0 0 EDT Impressions 03/01/2022 14:00 EDT Negative, no evidence of malignancy. RECOMMENDATION: Routine screening mammography is recommended. OVERALL ASSESSMENT: BI-RADS 1: Negative These results will be communicated to your patient via a lay letter from Radiology. If any additional imaging is needed we will contact your patient directly. Narrative 03/01/2022 14:00 EDT MA BREAST SCREENING JULIAN BILATERAL ??03/01/2022 7:50 AM History: Bilateral Screening ??12/15/20 Comparison: ??Comparison has been made to previous images. Technique: Routine 3D tomosynthesis with synthesized 2D views with CAD Bilateral Breast Composition: There are scattered areas of fibroglandular density. Bilateral Breast Findings: ??No significant masses, calcifications or other abnormalities are seen. Procedure Note Michael Andrade MD - 03/01/2022 MA BREAST SCREENING UJLIAN BILATERAL 03/01/2022 7:50 AM History: Bilateral Screening 12/15/20 Comparison: Comparison has been made to previous images. Technique: Routine 3D tomosynthesis with synthesized 2D views with CAD Bilateral Breast Composition: There are scattered areas of fibroglandulardensity. Bilateral Breast Findings: No significant masses, calcifications or otherabnormalities are seen. IMPRESSION Negative, no evidence of malignancy. RECOMMENDATION: Routine screening mammography is recommended. OVERALL ASSESSMENT: BI-RADS 1: Negative These results will be communicated to your patient via a lay letter fromRadiology. If any additional imaging is needed we will contact yourpatient directly. Osbaldo Dewitt NP IM MAMMOGRAPHY ORDERABLES Fin al Result * (ABNORMAL) LIPID PROFILE (INCLUDES CHOLESTEROL, TRIGLYCERIDES, HDL, LDL) (12/15/2020 7:37 EST) Triglyceride 83 <150 mg/dL 12/15/2020 9:04 [facility] Comment: Adult: Normal: ?<150 mg/dl ? Borderline High: 150-199 mg/dl ? High: ?200-499 mg/dl ? Very High: >fe=863 Cholesterol 225(H) <200 mg/dL 12/15/2020 9:04 [facility] Comment: Acceptable: ??<200 Borderline: ??200-239 High: ?> or = 240 Chol/HDL Ratio 3.5 0 - 4.5 12/15/2020 9:04 [facility] Comment: DESIRABLE RATIO IS LESS THAN 4.1 PATIENTS ARE CONSIDERED AT RISK: WOMEN RATIO >5 MEN RATIO >6 FASTING? [place] [facility] 7:37 [facility] HDL 63(H) 40 - 60 mg/dL 12/15/2020 9:04 [facility] Comment: ?? Reference Range Low: ? < 40 ??mg/dL Normal: ??40-60 mg/dL High: ?>= 60 mg/dL LDL CHOLESTEROL - [facility] 145(H) 60 - 100 mg/dL 12/15/2020 9:04 [facility] Non HDL Cholesterol 162 mg/dl 12/15/2020 9:04 EST [facility] Comment: Desirable: ?Less than 130 Borderline High: ??130-159 High: ? 160-189 Very High: ?Greater than or equal to 190 12/15/2020 7:37 EST 12/15/2020 7:37 EST Narrative [facility] - 12/15/2020 9:04 EST Does PT Have a Latex Allergy? 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
--- OUTSIDE RECORDS SUMMARY | 2024-09-30 00:18 | XMS_ITS | Clinical Summary ---
Author Organization [facility] Address [address] [place] [address] Care Team Providers Care Manufacturing Executive Name Role Phone Osbaldo Dewitt NP Primary Care Provider Allergies Active Allergy Reactions Criticality Noted Date [...] Take 1 Tablet by mouth daily. Active [id number] ORAL Take by mouth. Activ e acetaminophen [...] apnea) 09/07/2024 Overview (09/07/2024): CPAP Atrial fibrillation (HCC-CMS) 11/11/2023 Glenohumeral arthritis, left 03/11/2023 Anxiety 11/09/2019 [...] in 2024 per pt preference. Hypertension 11/02/2019 Encounters Date Type Department Care Team Description 09/07/2024 10:45 [place] [address] Osbaldo Dewitt, SMALL EQUIPMENT OPERATOR Encounter for annual physical exam (Primary Dx); Need for vaccination; Encounter for screening mammogram for malignant neoplasm of breast; Menopausal and postmenopausal disorder; Cervical cancer screening; Class 2 obesity due to excess calories without serious comorbidity with body mass index (BMI) of 35.0 to 35.9 in adult; Atrial fibrillation, unspecified type ([facility]); Anxiety 08/16/2024 [place] [address] Osbaldo Dewitt, SMALL EQUIPMENT OPERATOR Medications Refill 08/16/2024 [place] [address] Osbaldo Dewitt, SMALL EQUIPMENT OPERATOR Medications Refill from Last 3 Months Immunizations Name Administration Dates Next Due Covid-19 [...] IM 05/05/2014,10/06/2005 Tdap Vaccine =>6YO IM 11/18/2022 Surgical History Surgery Date Site/Laterality Comments GASTRIC FUNDOPLICATION 10/06/2008 - 10/05/2009 [place] [facility] [place] Bilateral 2002, 2023 SHOULDER SURGERY 12/05/2023 - 01/04/[address] [place] [facility] [place]INGER [place]IGGER RE[place] 10/06/2023 - 10/05/2024 Left CATARACT REMOVAL 06/06/2024 - 07/05/2024 Left Medical History Medical History Date Comments GERD (gastroesophageal reflux disease) Ramy Fundoplication Family History Medical History Relation Comments Atrial fibrillation Brother 1 Hypertension Brother 1 Valvular heart disease Brother 1 Atrial fibrillation Brother 2 No Known Child No Known Cousin No Known Daughter Coronary Artery Disease Father Pacemaker Father Prostate Cancer Father No Known Grandchild No Known Maternal Aunt Colon Cancer Maternal Grandfather Colon Cancer Maternal Grandmother No Known Maternal Uncle Dementia Mother No Known Other No Known Paternal Aunt Aortic aneurysm Paternal Grandfather abdominal No Known Paternal Grandmother No Known Paternal Uncle No Known Sister No Known Son BRCA1 Negative Neg Hx BRCA1 Positive Neg Hx BRCA2 Negative Neg Hx BRCA2 Positive Neg Hx Breast Cancer Neg Hx Breast Cancer (second onset) Neg Hx Genetic Disease Carrier Neg Hx Ovarian Cancer Neg Hx Relation Status Comments Brother 1 Brother 2 Alive Child Cousin Daughter Father Grandchild Maternal Aunt Maternal Grandfather Maternal Grandmother Maternal Uncle Mother Other Paternal Aunt Paternal Grandfather Paternal Grandmother Paternal Uncle Sister Son Social History Tobacco Use Types Packs/Day Years Used Date Smoking Tobacco: Former Cigarettes 1977 Smokeless Tobacco: Never Alcohol Use Standard Drinks/Week Comments Not Currently 0 (1 standard drink = 0.6 oz pur e alcohol) 2/night Nabtoities Answer Date Recorded In the past 12 months has [employer], oil, or water [employer] threatened to shut off services in your [...] a group home (including now)? No 10/15/2023 [facility] - Inadequate Housing Answer Date Re corded What is your living situation today? I have a [facility] place to live 08/25/[address] you li ve. Do you have problems with any of the following? None of the above 08/25/2024 [facility] - Transportation Answer Date Record ed In the past 12 months, has l ack of reliable transportation kept you from medical appointments, meetings, work or from getting things needed for daily living? No 08/25/2024 [facility] - Personal Safety Answer Date Recor ded How often does anyone, robbin mcneil family and friends, physically hurt you? Never 08/25/2024 How often does anyone, robbin mcneil family and friends, insult or talk down to you? Never 08/25/2024 How often does anyone, robbin mcneil family and friends, threaten you with harm? Never 08/25/2024 How often does anyone, robbin mcneil family and friends, scream or curse at you? Never 08/25/2024 [facility] - Financial Strain Answer Date Mango rded How hard is it for you to pa y for the very basics like food, housing, medical care, and heating? Would you say it is: Not hard at all 08/25/2024 [facility] - Employment Answer Date Recorded Do you want help finding or keeping work or a job? I do not need or want help 08/25/2024 [facility] - Social Connections Answer Date Re corded If for any reason you need h elp with day-to-day activities such as bathing, preparing meals, shopping, managing finances, etc., do you get the help you need? I don't need any help 08/25/2024 How often do you feel lonely or isolated from those around you? Rarely 08/25/2024 [facility] - Education Answer Date Recorded Do you speak a language other than Bengali at [facility]? No 08/25/2024 Do you want help with school or training? For example, starting or completing job training or getting a high school diploma, GED or equivalent. 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 Not on tone e Obstetrics History Para Term AB IAB SAB Ectopic Multiple Livin g Live Births 0 0 0 0 0 0 0 0 0 0 0 Last Filed Vital Signs Vital Sign Reading [...] Info) Description 11/11/2024 15:30 EST Office Visit [facility] Family [facility] [address] [place] [address] Osbaldo Dewitt, SMALL EQUIPMENT OPERATOR [address] [place] [address] Health Maintenance Due Date Last Done Comments Advance Directive 1977 Cologuard (Colon Cancer Screening) 2004 FIT Test (Colon Cancer Screening) 2004 Sigmoidoscopy (Colon Cancer Screening) 2004 Breast Cancer Screening 03/01/2024 03/01/20, 12/15/2020, 11/16/2018, Additional history exists Fall Risk Screening 2024 Osteoporosis Screening 2024 Social Determinants Of Healt h (SDOH) 08/25/2025 08/25/2024, 08/25/2024, 11/30/2020 Depression Screening 09/07/2025 09/07/2024, 08/25/2024, 11/18/2022, Additional history exists Lipid Profile Screening (Cholesterol) 12/15/2025 12/15/2020, 10/23/2018, 07/02/2017 Colonoscopy (Colon Cancer Screening) 09/05/2026 09/05/2016 Colorectal Cancer Screening 09/05/2026 Preventive Care Visit 09/07/2026 09/07/2024 , 11/18/2022, 11/18/2022, Additional history exists Pap Smear (Cervical Cancer Screening) 09/07/2027 09/07/2024, 04/20/2019, 05/05/2014 Cervical Cancer Screening 09/07/2029 HPV/Cotest (Cervical Cancer Screening) 09/07/2029 09/07/2024, 04/20/2019 Tetanus (Adult) Immunization 11/18/2032, 05/05/2014, 10/06/2005 Shingles Immunization Completed 08/13/2021, 021 Hepatitis C Screen Completed 11/18/2022 Pertussis (Adult) Immunization Completed 11/18/2022 COVID-19 Vaccine Completed 07/06/2024, , 07/25/2022, Additional history exists Influenza Immunization (Adult) Completed 1 , 07/25/2023, 07/25/2022, Additional history exists RSV Immunization ( o r 60+ Years) Completed 07/06/2024, 07/25/2023 Pneumococcal Immunization (65+) Completed RETIRED Cervical Cancer Screening Discontinued 09/07/2024, 04/20/2019, 05/05/2014 HIV Screening Discontinued Procedures Procedure Name Priority Date/Time Associated Diagnosis [...] Imaging System with Manual Evaluation 09/14/2024 14:06 [facility] Specimen Adequacy Satisfactory for Evaluation - assessment of transformation zone component not applicable ( e.g. atrophy, vaginal sample, hysterectomy) 09/14/2024 14:06 [facility] General Categorization Negative for intraepithelial lesion or malignancy 09/14/2024 14:06 [facility] Attestation . 09/14/2024 14:06 [facility] at 1406 Clinical History Screening cervical cancer 09/14/2024 14:06 [facility] Performing Lab [facility] 09/14/2024 14:06 [facility] Scanned Images 09/14/2024 14:06 [facility] HPV High Risk type 16, PCR Negative 09/14/2024 14:06 [facility] HPV High Risk type 18, PCR Negative 09/14/2024 14:06 [facility] HPV Other High Risk Types, PCR Negative The following Other High Risk HPV types were not detected: 31,33, 35, 39, 45, 51, 52, 56, 58, 59, 66 and 68. 09/14/2024 14:06 [facility] Pap Test CERVIX UTERI STRUCTURE / Unknown 09/07/2024 11:43 EST 09/07/2024 11:43 EST us Osbaldo Dewitt NP PATHOLOGY ORDERABLES Final Res ult Performing Organization Address City/State/[facility] Co de Phone Number [facility] [address] [place] [address] * HPV DNA DETECTION WITH GENOTYPING, PCR (09/07/2024 11:43 EST) HPV High Risk type 16, PCR Negative Negative 09/14/2024 14:06 [facility] HPV High Risk type 18, PCR Negative Negative 09/14/2024 14:06 [facility] HPV other High Risk types, PCR Negative Negative 09/14/2024 14:06 [facility] Comment: The following Other High Risk HPV types were not detected: ??31,33, 35, 39, 45, 51, 52, 56, 58, 59, 66 and 68. Pap Test CERVIX UTERI STRUCTURE / Unknown 09/07/2024 11:43 EST 09/13/2024 10:39 EST Osbaldo Dewitt NP MICROBIOLOGY - GENERAL ORDERAB LES Final Result [facility] [address] [place] [id number] * MA BREAST SCREENING JULIAN BILATERAL (03/01/2022 [...] Andrade MD - 03/01/2022 MA BREAST SCREENING JULIAN BILATERAL 03/01/2022 7:50 AM History: Bilateral Screening [...] is needed we will contact yourpatient directly. us Osbaldo Dewitt NP IMG MAMMOGRAPHY ORDERABLES Fin al Result * (ABNORMAL) LIPID PROFILE (INCLUDES CHOLESTEROL, TRIGLYCERIDES, HDL, LDL) (12/15/2020 7:37 EST) Triglyceride 83 <150 mg/dL 12/15/2020 9:04 [facility] Comment: Adult: Normal: ?<150 mg/dl ? Borderline High: 150-199 mg/dl ? High: ?200-499 mg/dl ? Very High: >ft=411 Cholesterol 225(H) <200 mg/dL 12/15/2020 9:04 [facility] Comment: Acceptable: ??<200 Borderline: ??200-239 High: ?> or = 240 Chol/HDL Ratio 3.5 0 - 4.5 12/15/2020 9:04 [facility] Comment: DESIRABLE RATIO IS LESS THAN 4.1 PATIENTS ARE CONSIDERED AT RISK: WOMEN RATIO >5 MEN RATIO >6 FASTING? [place] [facility] [place] 7:37 [facility] HDL 63(H) 40 - 60 mg/dL 12/15/2020 9:04 [facility] Comment: ?? Reference Range Low: ? < 40 ??mg/dL Normal: ??40-60 mg/dL High: ?>= 60 mg/dL LDL CHOLESTEROL [place] [facility] 145(H) 60 - 100 mg/dL 12/15/2020 9:04 [facility] Non HDL Cholesterol 162 mg/dl 12/15/2020 9:04 [facility] Comment: Desirable: ?Less than 130 Borderline High: ??130-159 High: ? 160-189 Very High: ?Greater than or equal to 190 12/15/2020 7:37 EST 12/15/2020 7:37 EST [facility] - 12/15/2020 9:04 EST Does PT Have a Latex Allergy? NO us Osbaldo Dewitt NP CHEMISTRY & BLOOD GAS ORDERABL ES Final Result [facility] [address] [place] [address] from Last 3 Months or Most Recently Relevant to Health Maintenance Insurance MEDICARE [facility] [address] [id number] Care Teams Manufacturing Executive Relationship Specialty Start Date End Date Osbaldo Dewitt NP [address] [place] [id number] PCP - General 09/01/19
--- OUTSIDE RECORDS SUMMARY | 2024-09-30 00:19 | XMS_ITS | Encounter Summary ---
Author Organization [facility] Address [address] [place] [address] Care Team Providers Care Railroad Car Loader Name Role Phone Osbaldo Dewitt NP Primary Care Provider [phone] Unavailable [phone] Reason for Visit * Reason Comments Medications Refill Encounter Details Date Type Department Care Team (Late st Contact Info) Description 03/05/2023 Refill [facility] [address] [place], [place] [id number] Osbaldo Dewitt NP [address] [place] [address] Medications Refill Social History Tobacco Use Types Packs/Day Years Used Date Smoking Tobacco: Former Cigarettes 1977 Smokeless Tobacco: Never Alcohol Use Standard Drinks/Week Comments Yes 14 (1 standard drink = 0.6 oz pu re alcohol) AUDIT-C Answer Date Recorded Q1: How often [...] care, and heating? Not hard at all 11/11/2022 PHQ-2 Answer Date Recorded PHQ-2 SUBTOTAL 0 11/11/2022 Hunger Vital Sign Answer Date Recorded Within the past 12 months, y ou worried that your food would run out before you got the money to buy more. Never true 11/11/19 23 Within the past 12 months, t he food you bought just didn't last and you didn't have money to get more. Never true 11/11/2022 PRAPARE - Transportation Answer Date Re corded In the past 12 months, has l ack of transportation kept you from medical appointments or from getting medications? No 03/2023 In the past 12 months, has l ack of transportation kept you from meetings, work, or from getting things needed for daily living? No 11/11/2022 Housing Stability Vital Sign Answer Hussain e Recorded In the last 12 months, was t here a time when you were not able to pay the mortgage or rent on time? No 11/11/2022 In the last 12 months, how many places have you lived? 2 11/11/2022 In the last 12 months, was t here a time when you did not have a steady place to sleep or slept in a fpc (including now)? No 11/11/2022 Interpersonal Safety Answer Date Record ed How often does anyone, inclu tarun family, hit, punch or physically hurt you? Never 11/11/2022 How often does anyone, robbin mcneil family, insult, scream, curse or threaten to hurt you? 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 documented as of this encounter Ordered Prescriptions Prescription Sig Dispense Quantity Refills Last Filled Start Date End Date atenoloL (TENORMIN) 25 mg tablet TAKE 1 TABLET BY MOUTH ONCE DAILY 90 Tablet 03/05/2023 05/21/2023 documented in this encounter Plan of Treatment Upcoming Encounters Date Type Department Care Team ([facility] Contact Info) Description 11/11/2024 15:30 EST Office Visit [facility] Family Medicine [address] [id number] Osbaldo Dewitt, GEOLOGICAL ENGINEERING TEACHER [address] [place] [address] documented as of this encounter Visit Diagnoses Not on filedocumented in this encounter Discontinued Medications Medication Sig Discontinue Reason Start Date End Da te atenoloL (TENORMIN) 25 mg tablet Take 1 Tablet by mouth daily. Reorder 11/18/2022 03/05/2023 documented as of this encounter Care Teams Railroad Car Loader Relationship Specialty Start Date End Date Osbaldo Dewitt, GEOLOGICAL ENGINEERING TEACHER [address] [place] [address] PCP - General 09/01/[address] [place] [id number] Registered Dietitian Clinical Nutrition 10/21/23 documented as of this encounter
--- OUTSIDE RECORDS SUMMARY | 2024-09-30 00:19 | XMS_ITS | Encounter Summary ---
Author Organization [facility] Address [address] [place] [address] Care Team Providers Care Plate Cleaner Name Role Phone Osbaldo Dewitt NP Primary Care Provider [phone] Reason for Visit * Reason Onset Date Comments Medications Refill 08/16/2024 Encounter Details Date Type Department Care Team (Late st Contact Info) Description 08/16/2024 Refill [facility] Integrative Family Medicine [facility] [address] [place] [address] Osbaldo Dewitt NP [address] [place] [address] Medications Refill Social History Tobacco Use Types Packs/Day Years Used Date Smoking Tobacco: Former Cigarettes 1 6 - 1977 Smokeless Tobacco: Never Alcohol Use Standard Drinks/Week Comments Not Currently 8 (1 standard drink = 0.6 oz pur e alcohol) 8/week AUDIT-C Answer Date Recorded Q1: How often [...] 10/15/2023 PHQ-2 Answer Date Recorded PHQ-2 SUBTOTAL 0 10/15/2023 Hunger Vital Sign Answer Date Recorded Within the past 12 months, y ou worried that your food would run out before you got the money to buy more. Never true 10/15/19 24 Within the past 12 months, t he food you bought just didn't last and you didn't have money to get more. Never true 10/15/2023 PRAPARE - Transportation Answer Date Re corded [...] place to sleep or slept in a halfway (including now)? No 10/15/2023 Interpersonal Safety Answer Date Record ed How often does anyone, inclu tarun family, hit, punch or physically hurt you? 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 42.5 g 2 08/16/2024 documented in this encounter Plan of Treatment Upcoming Encounters Date Type Department Care Team (Late st Contact Info) Description 11/11/2024 15:30 EST Office Visit [facility] [address] [address] Osbaldo Dewitt NP [address] [place] [address] documented as of this encounter Visit Diagnoses Not on filedocumented in this encounter Discontinued Medications Medication Sig Discontinue Reason Start Date End Da te estradioL (ESTRACE) 0.01 % (0.1 mg/gram) vaginal cream Place 0.5 g vaginally twice a week. Reorder 12/07/2020 08/16/2024 clobetasoL (TEMOVATE) 0.05 % ointment APPLY TOPICALLY TWICE DAILY NEEDED Reorder 08/11/2023 08/16/2024 documented as of this encounter Care Teams Plate Cleaner Relationship Specialty Start Date End Date Osbaldo Dewitt NP [address] [place] [address] PCP - General 09/01/19 documented as of this encounter
--- OUTSIDE RECORDS SUMMARY | 2024-09-30 00:19 | XMS_ITS | Encounter Summary ---
Author Organization [facility] Address [address] [place] [address] Care Team Providers Care Forge Heater Name Role Phone Osbaldo Dewitt NP Primary Care Provider [phone] Encounter Details Date Type Department Care Team (Latest Contact Info) Description 11/11/2023 Travel Social History Tobacco Use Types Packs/Day Years [...] place to sleep or slept in a skilled nursing (including now)? 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
--- OUTSIDE RECORDS SUMMARY | 2024-09-30 00:19 | XMS_ITS | Encounter Summary ---
Author Organization [facility] Address [address] [place] [address] Care Team Providers Care Cnc Machine Programmer Name Role Phone Osbaldo Dewitt NP Primary Care Provider [phone] Reason for Visit * Reason Comments Medications Refill Encounter Details Date Type Department Care Team (Late st Contact Info) Description 10/24/2023 Refill [facility] [address] [place] [address] Osbaldo Dewitt NP [address] [place] [address] Medications Refill Social History Tobacco [...] place to sleep or slept in a [place] facility (including now)? 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 Not on tone e documented as of this encounter Miscellaneous Notes * Telephone Encounter - Ruthann De Oliveira RN - 10/27/2023 0810 EST Declined med refill for local pharmacy as she is getting refills from mail order pharmacy documented in this encounter Plan of Treatment Upcoming Encounters Date Type Department Care Team (Late st Contact Info) Description 11/11/2024 15:30 EST Office Visit [facility] Integrative Family Medicine [address] [address] Osbaldo Dewitt NP [address] [place] [address] documented as of this encounter Visit Diagnoses Not on filedocumented in this encounter Care Teams Cnc Machine Programmer Relationship Specialty Start Date End Date Osbaldo Dewitt NP [address] [place] [address] PCP - General 09/01/19 documented as of this encounter
--- OUTSIDE RECORDS SUMMARY | 2024-09-30 00:19 | XMS_ITS | Encounter Summary ---
Author Organization [facility] Address [address] [place] [address] Care Team Providers Care Sales Donor Recruitment Representative Name Role Phone Osbaldo Dewitt NP Primary Care Provider [phone] Reason for Visit * Reason Comments Medications Refill Encounter Details Date Type Department Care Team (Late st Contact Info) Description 12/16/2022 Refill [facility] Integr[facility] Family Medicine [facility] [address] [place] [address] Osbaldo Dewitt NP [address] [place] [address] Medications Refill Social History Tobacco [...] in a skilled nursing (including now)? No 11/11/2022 Interpersonal Safety Answer Date Record ed How often does anyone, inclmirna mcneil family, hit, punch or physically hurt you? 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 No / Unsure 11/18/2022 14:15 EST documented as of this encounter Ordered Prescriptions Prescription Sig Dispense Quantity Refills Last Filled Start Date End Date losartan (COZAAR) 100 mg tabletIndications: Primary hypertension TAKE ONE TABLET BY MOUTH EVERY DAY 90 Tablet 3 12/17/2022 09/09/2023 documented in this encounter Miscellaneous Notes * Telephone Encounter - Grace Eubanks, RN - 12/17/2022 1216 EDT JALEN - 11/18/22 NOV - none last BMP - 10/10/22 - scanned docs Rx(s) escribed to pharmacy. documented in this encounter Plan of Treatment Upcoming Encounters Date Type Department Care Team (Late st Contact Info) Description 11/11/2024 15:30 EST Office Visit [facility] Integrative Family Medicine [address] [address] Osbaldo Dewitt NP [address], [place] [phone] documented as of this encounter Visit Diagnoses Diagnosis Primary hypertension- Primary Unspecified essential hypertension documented in this encounter Discontinued Medications Medication Sig Discontinue Reason Start Date End Da te losartan (COZAAR) 100 mg tabletIndications:Primary hypertension TAKE ONE TABLET BY MOUTH EVERY DAY 09/05/2022 12/17/2022 documented as of this encounter Care Teams Sales Donor Recruitment Representative Relationship Specialty Start Date End Date Osbaldo Dewitt NP [address] [place] [address] PCP - General 09/01/19 documented as of this encounter
--- OUTSIDE RECORDS SUMMARY | 2024-09-30 00:19 | XMS_ITS | Encounter Summary ---
Author Organization [facility] Address [address] [place] [address] Care Team Providers Care Coiled Tubing Operator Name Role Phone Osbaldo Dewitt NP Primary Care Provider [phone] Reason for Visit * Reason Comments Medications Refill Encounter Details Date Type Department Care Team (Late st Contact Info) Description 04/25/2023 Refill [facility] [address] [place] [address] Osbaldo Dewitt NP [address] [place] [address] Medications Refill Social History Tobacco [...] place to sleep or slept in a nursing home (including now)? 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 documented in this encounter Plan of Treatment Upcoming Encounters Date Type Department Care Team (Late st Contact Info) Description 11/11/2024 15:30 EST Office Visit [facility] Family [address] [phone] Osbaldo Dewitt NP [address] [place] [phone] documented as of this encounter Visit Diagnoses Not on filedocumented in this encounter Discontinued Medications Medication Sig Discontinue Reason Start Date End Da te hydroCHLOROthiazide (HYDRODIURIL) 25 mg tablet TAKE ONE TABLET BY MOUTH ONCE DAILY 02/03/2023 04/28/2023 documented as of this encounter Care Teams Coiled Tubing Operator Relationship Specialty Start Date End Date Osbaldo Dewitt NP [address] [place] [phone] PCP - General 09/01/19 documented as of this encounter
--- OUTSIDE RECORDS SUMMARY | 2024-09-30 00:19 | XMS_ITS | Encounter Summary ---
Author Organization [facility] Address [address] [place] [address] Care Team Providers Care Production Gear Cutter Name Role Phone Osbaldo Dewitt NP Primary Care Provider [phone] Reason for Visit * Reason Comments Medications Refill Encounter Details Date Type Department Care Team (Late st Contact Info) Description 04/20/2023 Refill [facility] [address] [place] [address] Osbaldo Dewitt NP [address] [place] [address] Medications Refill Social History Tobacco [...] in a group home (including now)? 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 documented in this encounter Plan of Treatment Upcoming Encounters Date Type Department Care Team (Late st Contact Info) Description 11/11/2024 15:30 EST Office Visit [facility] [address] [phone] Osbaldo Dewitt NP [address] [place] [phone] documented as of this encounter Visit Diagnoses Diagnosis Gastroesophageal reflux disease- Primary Esophageal reflux documented in this encounter Discontinued Medications Medication Sig Discontinue Reason Start Date End Da te omeprazole (PRILOSEC) 20 mg capsuleIndications:Gastr oesophageal reflux disease TAKE ONE CAPSULE BY MOUTH AT BEDTIME 10/25/2022 04/21/2023 documented as of this encounter Care Teams Production Gear Cutter Relationship Specialty Start Date End Date Osbaldo Dewitt NP [address] [place] [phone] PCP - General 09/01/19 documented as of this encounter
--- OUTSIDE RECORDS SUMMARY | 2024-09-30 00:19 | XMS_ITS | Encounter Summary ---
Author Organization [facility] Address [address] [place] [address] Care Team Providers Care Pharmacist'S Aide Name Role Phone Osbaldo Dewitt NP Primary Care Provider [phone] Reason for Visit * Reason Onset Date Comments Medications Refill 06/24/2023 Encounter Details Date Type Department Care Team (Late st Contact Info) Description 06/24/2023 Refill [facility] Integrative Family Medicine [facility] [address] [place] [address] Osbaldo Dewitt NP [address] [place] [address] Medications Refill Social History Tobacco Use Types Packs/Day Years Used Date Smoking Tobacco: Former Cigarettes 1 6 1977 Smokeless Tobacco: Never Alcohol Use Standard [...] place to sleep or slept in a alf (including now)? 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 30 g 1 06/24/2023 3 documented in this encounter Miscellaneous Notes * Telephone Encounter - Grace Eubanks RN - 06/24/2023 1549 EDT JALEN - 02/20/23 NOV - none Rx(s) escribed to pharmacy. * Telephone Encounter - Grace Eubanks RN - 06/24/2023 1041 EDT . documented in this encounter Plan of Treatment Upcoming Encounters Date Type Department Care Team (Late st Contact Info) Description 11/11/2024 15:30 EST Office Visit [facility] Integrative Family Medicine [address] [address] Osbaldo Dewitt NP [address] [place] [phone] documented as of this encounter Visit Diagnoses Not on filedocumented in this encounter Discontinued Medications Medication Sig Discontinue Reason Start Date End Da te clobetasoL (TEMOVATE) 0.05 % ointment Apply topically 2 times daily as needed for Other. Reorder 01/29/2022 06/24/2023 documented as of this encounter Care Teams Pharmacist'S Aide Relationship Specialty Start Date End Date Osbaldo Dewitt NP [address] [place] [phone] PCP - General 09/01/19 documented as of this encounter
--- OUTSIDE RECORDS SUMMARY | 2024-09-30 00:19 | XMS_ITS | Encounter Summary ---
Author Organization [facility] Address [address] [place] [address] Care Team Providers Care Excavating Supervisor Name Role Phone Osbaldo Dewitt NP Primary Care Provider [phone] Unavailable [phone] Reason for Visit * Reason Comments Medications Refill Encounter Details Date Type Department Care Team (Late st Contact Info) Description 02/03/2023 Refill [facility] [address] [place], [place] [phone] Osbaldo Dewitt NP [address] [place] [address] Medications Refill Social History Tobacco [...] place to sleep or slept in a long-term (including now)? 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 Not on tone e documented as of this encounter Ordered Prescriptions Prescription Sig Dispense Quantity Refills Last Filled Start Date End Date hydroCHLOROthiazid e (HYDRODIURIL) 25 mg tablet TAKE ONE TABLET BY MOUTH ONCE DAILY 90 Tablet 02/03/2023 04/28/2023 documented in this encounter Plan of Treatment Upcoming Encounters Date Type Department Care Team ([facility] Contact Info) Description 11/11/2024 15:30 EST Office Visit [facility] Integrative Family Medicine [address] [phone] Osbaldo Dewitt NP [address] [place] [address] documented as of this encounter Visit Diagnoses Not on filedocumented in this encounter Discontinued Medications Medication Sig Discontinue Reason Start Date End Da te hydroCHLOROthiazide (HYDRODIURIL) 25 mg tablet Take 1 Tablet by mouth daily. 10/28/2022 02/03/2023 documented as of this encounter Care Teams Excavating Supervisor Relationship Specialty Start Date End Date Osbaldo Dewitt INDUSTRIAL TRAINER [address] [place] [id number] PCP - General 09/01/[address] [place] [phone] Registered Dietitian Clinical Nutrition 10/21/23 documented as of this encounter
--- OUTSIDE RECORDS SUMMARY | 2024-09-30 00:19 | XMS_ITS | Encounter Summary ---
Author Organization [facility] Address [address] [place] [address] Care Team Providers Care Traffic Analyst Name Role Phone Osbaldo Dewitt NP Primary Care Provider [phone] Reason for Referral * Consult (Routine/Next Available) - Specialty Report Received Specialty Diagnoses / Procedures Referred By Chance le Referred To Contact Diagnoses Chronic pain of both shoulders Osbaldo Dewitt NP Phone: tel: fax: Referral ID Status Reason Start Date Expiration Date Visits Requested Visits Authorized [id number] Specialty Report Received Specialty Services Required 12/26/2022 1 1 Question Answer Reason for Request: bilateral shoulder OA; seeking second opinion for shoulder replacement surgery; seen at [facility] S[facility] Reason for Visit * Reason Comments Referral Request Rheumatology Other Ortho suggests bilat shoulder replacements/sciatica is better with PATIENT/knee xray shows spurring Encounter Details Date Type Department Care Team (Latest Contact Info) Description 12/26/2022 11:00 EDT Telemedicine [facility] Family Medicine [address] [phone] Osbaldo Dewitt NP [address] [place] [address] Polyarthropathy (Primary Dx); Elevated fasting glucose; Right hip pain; Chronic pain of both shoulders Social History Tobacco Use Types Packs/Day Years Used Date Smoking Tobacco: Former Cigarettes 1 1977 Smokeless Tobacco: Never Tobacco Cessation:Counseling Given: Not Answered Alcohol Use Standard Drinks/Week Comments Yes 14 [...] place to sleep or slept in a assisted (including now)? 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 [facility] Video Visit Today's visit was provided through telemedicine video conferencing: The location of the patient: Home The location of the provider: Home Office Verbal consent: The concept of ???Telemedicine?? has been described to the patient.? Patient has been informed of the anticipated benefits and possible risks.? Patient understands the information provided regardingtelemedicine, has had the opportunity to ask questions about this information, and all questions have been answered to patient???s satisfaction. Patient consents for the use of telemedicine in his/her medical care and authorizes the transmission of any relevant medical information to providers and their staff involved in patient???s medical or mental health care. Verbal consent obtained by myself or auxiliary staff: YES. Subjective: Chief Complaint(s): Referral Request (Rheumatology) and Other (Ortho suggests bilat shoulder replacements/sciatica is better with PATIENT/knee xray shows spurring) HPI: Cheryl is seen today with c/o persistent pain in her bilateral shoulders, right hip and left knee. Shehas been seeing orthopedics at [facility] as well as physical therapy. Her PT has recommended discussing rheumatology referral based on her polyarthralgias. Seen by [facility] orthopedics, Dr. Patel 12/25/2022 - for severe OA of bilateral shoulders. Has pending MRI and CT scans and has recommended bilateral shoulder replacement. PT has not been helpful. She is interested in seeking a second opinion prior to proceeding with surgery. Has been completing PT for sciatica and knee pain which has been slowly beneficial. Has orthopedic follow up for her knee next month. Denies family history of rheumatoid arthritis. Full ROS below. I have reviewed patient's tobacco history: reports that she quit smoking about 45 years ago. Her smoking use included cigarettes. She has never used smokeless tobacco. I have reviewed current problem list and current medications. Medications: Current Outpatient Medications on File Prior to Visit Medication Sig Dispense Refill ??? atenoloL (TENORMIN) 25 mg tablet Take 1 Tablet by mouth daily. 90 Tablet 0 ??? cetirizine (ZYRTEC) 10 mg tablet Take 10 mg by mouth daily. ??? cholecalciferol, Vitamin D3, 1,000 unit tablet Take 1,000 Units by mouth daily. ??? clobetasoL (TEMOVATE) 0.05 % ointment Apply topically 2 times daily as needed for Other. 30 g 1 ??? doxycycline (PERIOSTAT) 20 mg tablet TAKE TWO TABLETS BY MOUTH EVERY DAY 180 Tablet 3 ??? estradioL (ESTRACE) 0.01 % (0.1 mg/gram) vaginal cream Place 0.5 g vaginally twice a week. 1 Tube 3 ??? fluticasone propionate (FLONASE) 50 mcg/actuation nasal spray Instill 2 Sprays into both nostrils daily as needed. ??? glucosamine sulfate 500 mg capsule Take 2 Caps by mouth daily. ??? hydroCHLOROthiazide (HYDRODIURIL) 25 mg tablet Take 1 Tablet by mouth daily. 90 Tablet 0 ??? losartan (COZAAR) 100 mg tablet TAKE ONE TABLET BY MOUTH EVERY DAY 90 Tablet 3 ??? omeprazole (PRILOSEC) 20 mg capsule TAKE ONE CAPSULE BY MOUTH AT BEDTIME 90 Capsule 1 ??? venlafaxine (EFFEXOR-XR) 37.5 mg XR capsule TAKE ONE CAPSULE BY MOUTH EVERY DAY 90 capsule 3 No current facility-administered medications on file prior to visit. ROS: Review of Systems Constitutional: Negative for chills, fever and unexpected weight change. Musculoskeletal: Positive for arthralgias, back pain and joint swelling. Skin: Negative for rash. Objective: Examination: Home Vitals: Ht 175.3 cm (69.02) Wt (!) 110.2 kg (243 lb) BMI 35.86 kg/m?? Pertinent exam findings patient can observe: GENERAL APPEARANCE: no acute distress, pleasant, cooperative. HEENT EYES:, conjunctiva clear. NECK: supple LUNGS: unlabored NEUROLOGIC EXAM: alert & oriented x3 PSYCH: mood appropriate, affect full range Data reviewed with patient: notes from last encounter, lab results, imaging Assessment & Plan: Sandie was seen today for referral request and other. Diagnoses and all orders for this visit: Polyarthropathy Comments: Would suspect evidence of inflammatory arthritis on imaging but will check labs for additional ruleout. Orders: - C REACTIVE PROTEIN; Future - RHEUMATOID SCREEN/TITRE; Future - CCP ANTIBODIES; Future Elevated fasting glucose - HEMOGLOBIN A1C; Future Right hip pain - XR HIP RIGHT 2-3 VIEWS, OPTIONAL PELVIS; Future Chronic pain of both shoulders Comments: Referral for second opinion at [facility] sent. Orders: - AMB CONS/FOLLOW UP ORTHOPEDICS - EXTERNAL; Future Return for follow up as needed. I spent a total of 35 minutes on the date of this encounter meeting with the patient and reviewing documentation/coordinating care as described in the above note. No procedures were performed at the time of the visit. The following staff and their role did participate in today's encounter visit: Osbaldo Dewitt NP Speech recognition software was used to complete this progress note. Typographical errors may be present. documented in this encounter Plan of Treatment Upcoming Encounters Date Type Department Care Team (Late st Contact Info) Description 11/11/2024 15:30 EST Office Visit [facility] Integrative Family Medicine [facility] [address] [place], [place] [phone] Osbaldo Dewitt NP [address] [place] [address] Scheduled Referrals Name Type Priority Associated Diagnoses Order Schedule AMB CONS/FOLLOW UP ORTHOPEDICS - EXTERNAL Outpatient Referral Routine/Next Available Chronic pain of both shoulders Expected: 01/02/2023 (Approximate), Expires: 12/27/2023 documented as of this encounter Visit Diagnoses Diagnosis Polyarthropathy- Primary Unspecified polyarthropathy or polyarthritis, site unspecified Elevated fasting glucose Impaired fasting glucose Right hip pain Pain in joint, pelvic region and thigh Chronic pain of both shoulders Pain in joint, shoulder region documented in this encounter Care Teams Traffic Analyst Relationship Specialty Start Date End Date Osbaldo Dewitt NP [address] [place] [address] PCP - General 09/01/19 documented as of this encounter
--- OUTSIDE RECORDS SUMMARY | 2024-09-30 00:19 | XMS_ITS | Encounter Summary ---
Author Organization [facility] Address [address] [place] [address] Care Team Providers Care Senior Center Manager Name Role Phone Osbaldo Dewitt NP Primary Care Provider [phone] Reason for Visit * Reason Onset Date Comments Referral Request 12/17/2022 Encounter Details Date Type Department Care Team (Late st Contact Info) Description 12/17/2022 Telephone [facility] Integrative Family Medicine [facility] [address] [place] [address] Osbaldo Dewitt NP [address] [place] [address] Referral Request Social History Tobacco Use Types Packs/Day Years [...] 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 No / Unsure 11/18/2022 14:15 EST documented as of this encounter Miscellaneous Notes * Telephone Encounter - Malathi Juan - 12/18/2022 0849 EDT Addressed in patient mychart * Telephone Encounter - Osbaldo Dewitt NP - 12/17/2022 1039 EDT Okay to refer to PT for low back pain with radiculopathy * Telephone Encounter - Kristen Parker - 12/17/2022 1011 EDT Pt called requesting referral for physical therapy for her right sciatica as the pain has become unbearable Pt requesting referral to [facility] Pt already sees them for PT on her shoulder and knee Please advise documented in this encounter Plan of Treatment Upcoming Encounters Date Type Department Care Team (Late st Contact Info) Description 11/11/2024 15:30 EST Office Visit [facility] Integrative Family Medicine [facility] [address] [place] [address] Osbaldo Dewitt NP [address] [place] [address] documented as of this encounter Visit Diagnoses Not on filedocumented in this encounter Care Teams Senior Center Manager Relationship Specialty Start Date End Date Osbaldo Dewitt NP [address] [place] [address] PCP - General 09/01/19 documented as of this encounter
--- OUTSIDE RECORDS SUMMARY | 2024-09-30 00:19 | XMS_ITS | Encounter Summary ---
Author Organization [facility] Address [address] [place] [address] Care Team Providers Care Machine Umbrella Tipper Name Role Phone Osbaldo Dewitt NP Primary Care Provider [phone] Reason for Visit * Reason Onset Date Comments Medications Refill 10/27/2023 Encounter Details Date Type Department Care Team (Late st Contact Info) Description 10/27/2023 Refill [facility] Integrative Family Medicine [facility] [address] [place] [address] Osbaldo Dewitt NP [address] [place] [address] Medications Refill Social History Tobacco Use Types Packs/Day Years Used Date Smoking Tobacco: Former Cigarettes 1 1977 Smokeless Tobacco: Never Alcohol Use Standard [...] 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 Not on tone e documented as of this encounter Plan of Treatment Upcoming Encounters Date Type Department Care Team (Late st Contact Info) Description 11/11/2024 15:30 EST Office Visit [facility] Family Medicine [facility] [address] [place] [address] Osbaldo Dewitt NP [address] [place] [address] documented as of this encounter Visit Diagnoses Diagnosis Rosacea documented in this encounter Care Teams Machine Umbrella Tipper Relationship Specialty Start Date End Date Osbaldo Dewitt NP [address] [place] [address] PCP - General 09/01/19 documented as of this encounter
--- OUTSIDE RECORDS SUMMARY | 2024-09-30 00:19 | XMS_ITS | Encounter Summary ---
Author Organization [facility] Address [address] [place] [address] Care Team Providers Care Environmental Health Officer Name Role Phone Osbaldo Dewitt NP Primary Care Provider [phone] Reason for Visit * Reason Comments Medications Refill Encounter Details Date Type Department Care Team (Late st Contact Info) Description 01/29/[address] [facility] [address] [place] [address] Osbaldo Dewitt NP [address] [place] [address] Medications Refill Social History Tobacco [...] place to sleep or slept in a retirement (including now)? 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 Not on tone e documented as of this encounter Ordered Prescriptions Prescription Sig Dispense Quantity Refills Last Filled Start Date End Date venlafaxine (EFFEXOR-XR) 37.5 mg XR capsuleIndications :Anxiety,Depressio n, unspecified depression type TAKE ONE CAPSULE BY MOUTH EVERY DAY 90 Capsule 2 01/30/2023 3 documented in this encounter Miscellaneous Notes * Telephone Encounter - Ruthann De Oliveira RN - 01/30/2023 0810 EDT Medication Requested: Venlafaxine 37.5mg Last OV: 11/18/2022 Next OV: Visit date not found Last Refill (If required): 01/24/2022 90 3RF Last Labs (BMP/CMP/LIPID/TSH) : N/A Pharmacy Of Choice: [facility] documented in this encounter Plan of Treatment Upcoming Encounters Date Type Department Care Team (Late st Contact Info) Description 11/11/2024 15:30 EST Office Visit [facility] Integrative Family Medicine [address] [phone] sObaldo Dewitt NP [address] [place] [phone] documented as of this encounter Visit Diagnoses Diagnosis Anxiety Anxiety state, unspecified Depression, unspecified depression type documented in this encounter Discontinued Medications Medication Sig Discontinue Reason Start Date End Da te venlafaxine (EFFEXOR-XR) 37.5 mg XR capsuleIndications:Anxie ty,Depression, unspecified depression type TAKE ONE CAPSULE BY MOUTH EVERY DAY 01/24/2022 01/30/2023 documented as of this encounter Care Teams Environmental Health Officer Relationship Specialty Start Date End Date Osbaldo Dewitt NP [address] [place] [phone] PCP - General 09/01/19 documented as of this encounter
--- OUTSIDE RECORDS SUMMARY | 2024-09-30 00:19 | XMS_ITS | Encounter Summary ---
Author Organization [facility] Address [address] [place] [address] Care Team Providers Care Jig Bore Tool Maker Name Role Phone Osbaldo Dewitt NP Primary Care Provider [phone] Reason for Referral * Consult (Urgent) - Specialty Report Received Specialty Diagnoses / Procedures Referred By [facility] Referred To Contact Diagnoses Atrial fibrillation, unspecified type ([facility]) Osbaldo Dewitt NP Phone: tel: fax: Referral ID Status Reason Start Date Expiration Date Visits Requested Visits Authorized [id number] Specialty Report Received Specialty Services Required 09/10/2023 1 1 Question Answer [facility] Reason for Request: recently diagnosed with atrial fibrillation with RVR Reason for Visit * Reason Onset Date Comments Follow-up 09/08/2023 Coordination Of Care 09/08/2023 TCM Encounter Details Date Type Department Care Team ([facility] st Contact Info) Description 09/08/2023 Telephone [facility] [address] [place] [address] [phone] Follow-up; Coordination Of Care (TCM) Social History Tobacco Use Types Packs/Day Years [...] place to sleep or slept in a senior care (including now)? No 11/11/2022 Interpersonal Safety Answer Date Record ed How often does anyone, inclu ding family, hit, punch or physically hurt you? 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 yes Discharge instructions available? yes Medication/ Therapy changes? Yes Medication reconciliation complete? Yes Home care needs? No Follow-up (TCM) appointment scheduled? 09/16/2023 Medical/Surgical history updated? Yes Education/ plan: n/a Questions or Concerns: n/a Follow up needed: Pat asked for a referral to Oziel Arroyo MD, a manager of construction at [facility]. * Telephone Encounter - Ruthann De Oliveira RN - 09/08/2023 1159 EST Follow up message sent to patient * Telephone Encounter - Malathi Juan - 09/08/2023 1058 EST Patient calls in for a follow up appointment from an Ed to hospital admission at [facility] for cardiac event. Patient scheduled with pcp on 09/16 documented in this encounter Plan of Treatment Upcoming Encounters Date Type Department Care Team (Late st Contact Info) Description 11/11/2024 15:30 EST Office Visit [facility] [address] [address] Osbaldo Dewitt NP [address] [place] [address] Scheduled Referrals Name Type Priority Associated Diagnoses Orde r Schedule AMB CONS/FOLLOW UP CARDIOLOGY Outpatient Referral Urgent Atrial fibrillation, unspecified type (HCC-CMS) Expected: 09/12/2023 (Approximate), Expires: 09/10/2024 documented as of this encounter Visit Diagnoses Diagnosis Atrial fibrillation, unspecified type (HCC-CMS)- Primary documented in this encounter Discontinued Medications Medication Sig Discontinue Reason Start Date End Da te glucosamine sulfate 500 mg capsule Take 2 Caps by mouth daily. Therapy completed 09/09/2023 losartan (COZAAR) 100 mg tabletIndications:Primary hypertension TAKE ONE TABLET BY MOUTH EVERY DAY Alternate therapy 12/17/2022 09/09/2023 predniSONE (DELTASONE) 5 mg tablet TAKE 8 TABLETS BY MOUTH DAILY FOR 2 DAYS, 6 TABLETS FOR 2 DAYS, 4 TABLETS FOR 2 DAYS, 3 TABLET FOR 2 DAYS, 2 TABLETS FOR 2 DAYS, 1 TABLET FO Therapy completed 06/30/2023 09/09/2023 ondansetron (ZOFRAN) 4 mg tablet Therapy completed 03/11/2023 09/09/2023 doxycycline (PERIOSTAT) 20 mg tablet Take 1 Tablet by mouth daily. Duplicate order 02/03/2023 09/09/2023 documented as of this encounter Historical Medications * This list may reflect changes made after this encounter. acetaminophen (TYLENOL) 500 mg tablet Take 2 Tablets by mouth 2 times daily. PRN doxycycline (PERIOSTAT) 20 mg tablet Take 1 Tablet by mouth daily. 02/03/2023 09/09/2023 predniSONE (DELTASONE) 5 mg tablet TAKE 8 TABLETS BY MOUTH DAILY FOR 2 DAYS, 6 TABLETS FOR 2 DAYS, 4 TABLETS FOR 2 DAYS, 3 TABLET FOR 2 DAYS, 2 TABLETS FOR 2 DAYS, 1 TABLET FO 06/30/2023 09/09/2023 ondansetron (ZOFRAN) 4 mg tablet 03/11/2023 09/09/2023 dilTIAZem (CARDIZEM CD) 180 mg ER capsule Take by mouth every morning. 09/06/2023 09/18/2023 ELIQUIS 5 mg tablet Take 1 Tablet by mouth 2 times daily. 09/06/2023 09/18/2023 added in this encounter Care Teams Jig Bore Tool Maker Relationship Specialty Start Date End Date Osbaldo Dewitt NP [address] [place] [phone] PCP - General 09/01/19 documented as of this encounter
--- OUTSIDE RECORDS SUMMARY | 2024-09-30 00:19 | XMS_ITS | Encounter Summary ---
Author Organization [facility] Address [address] [place] [address] Care Team Providers Care Stitcher Utility Name Role Phone Osbaldo Dewitt NP Primary Care Provider [phone] Reason for Referral * Consult (Routine/Next Available) - Specialty Report Received Specialty Diagnoses / Procedures Referred By Chance le Referred To Contact Diagnoses Class 1 obesity due to excess calories with serious comorbidity and body mass index (BMI) of 34.0 to 34.9 in adult Osbaldo Dweitt NP Phone: tel: fax: [facility] [address] [address] Phone: tel: fax: Referral ID Status Reason Start Date Expiration Date Visits Requested Visits Authorized [id number] Specialty Report Received Specialty Services Required 3 1 1 Question Answer Nutrition/diabetic educator/Education: Nutrition, Wellness coaching, Weight loss Reason for Visit * Reason Comments Follow-up ed Encounter Details Date Type Department Care Team (Latest Contact Info) Description 09/16/2023 10:00 EST Office Visit [facility] [address] [place] [address] Osbaldo Dewitt, INTERNAL CONTROL MANAGER [address] [place] [address] Atrial fibrillation, unspecified type (HCC-CMS) (Primary Dx); Class 1 obesity due to excess calories with serious comorbidity and body mass index (BMI) of 34.0 to 34.9 in adult; Alcohol use disorder; Pure hypercholesterolemia Social History Tobacco Use Types Packs/Day Years Used Date Smoking Tobacco: Former Cigarettes 1977 Smokeless Tobacco: Never Tobacco Cessation:Counseling Given: [...] place to sleep or slept in a custodial (including now)? No 11/11/2022 Interpersonal Safety Answer Date Record ed How often does anyone, robbin mcneil family, hit, punch or physically hurt you? 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 [facility] Primary Care Subjective: Chief Complaint(s): Follow-up (ed) HPI: Pat presents today for TCM follow-up new onset A-fib with RVR after hospitalization at [facility] from 09/05/2023- 09/06/23. She presented with complaints of palpitations, shortness of breath and diaphoresis. Seen initially at urgent care and referred to [facility] with A-fib with a heart rate of 148. She was also hypertensive at 170. Labs showed elevated WBC, sodium 134, negative troponin, normal thyroid. Shewas treated with IV diltiazem and started on Eliquis. She was admitted overnight for monitoring andmanagement. She was transitioned to oral diltiazem and discharged on diltiazem CD 180 mg daily, losartan was held and is to be restarted per PCP. Echo showed EF of 66%. Endorses stress in the last year that she feels contributed to the episode. ETOH use 3-4 nightly, more on weekends. Has not had anything to drink since the Afib event. Plans to abstain for at least 2 weeks, would like to cut down overall. Would like to make lifestyle changes, hoping to exercise more after shoulder replacement scheduled for December 2023. Cardiology follow up next week in [place]. Patient was recently discharged from [facility] on 09/06/23. Patient was contacted yes. ASCVD risk 5.6% I have reviewed TCM telephone encounter on @ED@. Please refer to telephone encounter for TCM details on 09/08/23. Discharge diagnosis: Afib with RVR I have reviewed all diagnostic tests: yes. Additional care coordination needed: no Patient has had changes in medication reconciled. I have reviewed the patient's medication list, past medical history, social history, and family history and updated as appropriate on 09/16/23. I have reviewed patient's tobacco history: reports that she quit smoking about 45 years ago. Her smoking use included cigarettes. She started smoking about 47 years ago. She has never used smokeless tobacco. I have reviewed current problem list and current medications. Medications: Current Outpatient Medications on File Prior to Visit Medication Sig Dispense Refill acetaminophen (TYLENOL) 500 mg tablet Take 2 Tablets by mouth 2 times daily. atenoloL (TENORMIN) 25 mg tablet TAKE ONE TABLET BY MOUTH EVERY DAY 90 Tablet 3 cetirizine (ZYRTEC) 10 mg tablet Take 1 Tablet by mouth daily. cholecalciferol, Vitamin D3, 1,000 unit tablet Take 1 Tablet by mouth daily. clobetasoL (TEMOVATE) 0.05 % ointment APPLY TOPICALLY TWICE DAILY NEEDED 30 g 1 dilTIAZem (CARDIZEM CD) 180 mg ER capsule Take by mouth every morning. doxycycline (PERIOSTAT) 20 mg tablet TAKE TWO TABLETS BY MOUTH EVERY DAY 180 Tablet 3 ELIQUIS 5 mg tablet Take 1 Tablet by mouth 2 times daily. estradioL (ESTRACE) 0.01 % (0.1 mg/gram) vaginal cream Place 0.5 g vaginally twice a week. 1 Tube 3 fluticasone propionate (FLONASE) 50 mcg/actuation nasal spray Instill 2 Sprays into both nostrils daily as needed. hydroCHLOROthiazide (HYDRODIURIL) 25 mg tablet TAKE ONE TABLET BY MOUTH EVERY DAY 90 Tablet 3 omeprazole (PRILOSEC) 20 mg capsule TAKE ONE CAPSULE BY MOUTH AT BEDTIME 90 Capsule 3 [id number]-[id number]-CAPRYL ORAL Take by mouth. venlafaxine (EFFEXOR-XR) 37.5 mg XR capsule TAKE ONE CAPSULE BY MOUTH EVERY DAY 90 Capsule 2 No current facility-administered medications on file prior to visit. ROS: Review of Systems Constitutional: Negative. Respiratory: Negative for shortness of breath. Cardiovascular: Negative for chest pain, palpitations and leg swelling. Hematological: Does not bruise/bleed easily. Objective: Examination: Vitals: BP 128/88 Pulse 76 Resp 16 Ht 175.3 cm (69.02) Wt (!) 105.1 kg (231 lb 9.6 oz) SpO2 99% BMI 34.18 kg/m?? Body mass index is 34.18 kg/m??. Physical Exam Constitutional: Appearance: She is well-developed. She is obese. HENT: Head: Normocephalic and atraumatic. Eyes: Extraocular Movements: Extraocular movements intact. Neck: Vascular: No carotid bruit. Cardiovascular: Rate and Rhythm: Normal rate and regular rhythm. Pulmonary: Effort: Pulmonary effort is normal. Breath sounds: Normal breath sounds. No wheezing, rhonchi or rales. Musculoskeletal: General: Normal range of motion. Cervical back: Normal range of motion. Right lower leg: No edema. Left lower leg: No edema. Skin: General: Skin is warm and dry. Neurological: Mental Status: She is alert and oriented to person, place, and time. Psychiatric: Behavior: Behavior normal. Thought Content: Thought content normal. Judgment: Judgment normal. Data reviewed with patient (past results): active problem list, medication list, notes from last encounter, lab results, imaging Assessment & Plan: Sandie was seen today for follow-up. Diagnoses and all orders for this visit: Atrial fibrillation, unspecified type ([facility]) Comments: Regular rhythm today. Reviewed all outside labs, imaging and notes. Plan to continue diltiazem 180mg daily and Eliquis and f/u with cardiology as scheduled Orders: - MAGNESIUM - COMPREHENSIVE METABOLIC PANEL (CMP) Class 1 obesity due to excess calories with serious comorbidity and body mass index (BMI) of 34.0 to 34.9 in adult - AMB CONS/FOLLOW UP SAND CASTER APPRENTICE, MEDICAL CHIEF TECHNICIAN AND NUTRITION; Future Alcohol use disorder Comments: Reviewed ETOH use recommendations, declines reduction support. Reviewed benefits of cessation/reducation. Pure hypercholesterolemia Comments: Reviewed labs completed at [facility]. ASCVD risk score 5.6%. Continue lifestyle interventions. Patient advised to follow up for any concerns or change in status. Return for follow up as previously scheduled. Osbaldo Dewitt APRN Speech recognition software was used to complete this progress note. Typographical errors may be present. * Thania Pop LPN - 09/16/2023 1000 EST Performed by THANIA POP LPN Site Collected Right Antecubital Space Volume Withdrawn STT; 8.5ml Patient Response Patient tolerated venipuncture well and Number of attempts 1 Ordering Provider Kwesi Dewitt APRN documented in this encounter Plan of Treatment Upcoming Encounters Date Type Department Care Team (Late st Contact Info) Description 11/11/2024 15:30 EST Office Visit [facility] [address] [phone] Osbaldo Dewitt NP [address] [place] [address] Scheduled Referrals Name Type Priority Associated Diagnoses Order Schedule AMB CONS/FOLLOW UP SAND CASTER APPRENTICE, MEDICAL CHIEF TECHNICIAN AND NUTRITION Outpatient Referral Routine/Next Available Class 1 obesity due to excess calories with serious comorbidity and body mass index (BMI) of 34.0 to 34.9 in adult Expected: 09/23/2023 (Approximate), Expires: 09/16/2024 documented as of this encounter Procedures Procedure Name Priority Date/Time Associated Diagnosis Comments MAGNESIUM Routine 09/16/2023 10:48 EST Atrial fibrillation, unspecified type (HCC-CMS) COMPREHENSIVE METABOLIC PANEL (CMP) Routine 09/16/2023 10:48 EST Atrial fibrillation, unspecified type (HCC-CMS) documented in this encounter Results * COMPREHENSIVE METABOLIC PANEL (CMP) (09/16/2023 10:48 EST) Sodium 138 136 - 145 mmol/L 09/17/2023 19:00 [facility] Potassium 4.0 3.5 - 5.0 mmol/L 09/17/2023 19:00 [facility] Chloride 101 96 - 110 mmol/L 09/17/2023 19:00 [facility] CO2 Total 28 22 - 32 mmol/L 09/17/2023 19:00 [facility] Glucose 96 70 - 99 mg/dl 09/17/2023 19:00 [facility] BUN 14 10 - 26 mg/dL 09/17/2023 19:00 [facility] Creatinine 0.56 0.52 - 1.04 mg/dL 09/17/2023 19:00 [facility] eGFR 102 >60 mL/min/1.7 3m2 09/17/2023 19:00 [facility] Total Protein 7.6 6.3 - 8.2 g/dL 09/17/2023 19:00 [facility] Albumin 4.4 3.4 - 4.9 g/dL 09/17/2023 19:00 [facility] Alkaline Phosphatase 58 38 - 126 U/L 09/17/2023 19:00 [facility] AST 31 15 - 46 U/L 09/17/2023 19:00 [facility] ALT 24 <35 U/L 09/17/2023 19:00 [facility] Bilirubin, Total <0.5 <1.4 mg/dL 09/17/20 19:00 [facility] Calcium 9.9 8.5 - 10.5 mg/dL 09/17/2023 19:00 [facility] Albumin/Globulin Ratio 1.4 1.0 - 2.5 g/dL 09/17/2023 19:00 [facility] Anion Gap 9 5 - 14 mmol/L 09/17/2023 19:00 [facility] Blood VENOUS BLOOD / Unknown Venipuncture / Unknown 09/16/2023 10:48 EST 09/16/2023 10:48 EST us Osbaldo Dewitt INTERNAL CONTROL MANAGER CHEMISTRY & BLOOD GAS ORDERABL ES Final Result Performing Organization Address [facility] [employer] de Phone Number [facility] [address] [place] [address] * MAGNESIUM (09/16/2023 10:48 EST) Magnesium 1.8 1.7 - 2.8 mg/dL 09/17/2023 19:00 [facility] Blood VENOUS BLOOD / Unknown Venipuncture / Unknown 09/16/2023 10:48 EST 09/16/2023 10:48 EST us Osbaldo Dewitt INTERNAL CONTROL MANAGER CHEMISTRY & BLOOD GAS ORDERABL ES Final Result Performing Organization Address [facility] [employer] de Phone Number [facility] [address] [place] [address] documented in this encounter Visit Diagnoses Diagnosis Atrial fibrillation, unspecified type ([facility])- Primary Class 1 obesity due to excess calories with serious comorbidity and body mass index (BMI) of 34.0 to 34.9 in adult Alcohol use disorder Pure hypercholesterolemia documented in this encounter Care Teams Stitcher Utility Relationship Specialty Start Date End Date Osbaldo Dewitt NP [address] [place] [address] PCP - General 09/01/19 documented as of this encounter
--- OUTSIDE RECORDS SUMMARY | 2024-09-30 00:19 | XMS_ITS | Encounter Summary ---
Author Organization [facility] Address [address] [place] [address] Care Team Providers Care Pan Reclaim Processor Name Role Phone Osbaldo Dewitt EVENT SERVICES MANAGER Primary Care Provider [phone] Unavailable Reason for Visit * Reason Comments Nutrition Counseling Weight * Consult (Routine/Next Available) - Specialty Report Received Specialty Diagnoses / Procedures Referred By Chance le Referred To Contact Diagnoses Class 1 obesity due to excess calories with serious comorbidity and body mass index (BMI) of 34.0 to 34.9 in adult Osbaldo Dewitt NP Phone: tel: fax: [facility] Integrative Family Medicine - [address] [address] Phone: tel: fax: Referral ID Status Reason Start Date Expiration Date Visits Requested Visits Authorized [id number] Specialty Report Received Specialty Services Required 3 1 1 Encounter Details Date Type Department Care Team ([facility] st Contact Info) Description 10/21/2023 9:30 EST Community Health Team [facility] Adult Primary Care - [address] [address] Cht Registered Dietitian, [facility] [place] Adult Social History Tobacco Use Types Packs/Day Years [...] place to sleep or slept in a care home (including now)? No 10/15/2023 Interpersonal Safety Answer Date Record ed How often does anyone, inclu ding family, hit, punch or physically hurt you? 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 has been described [...] in patient???s medical or mental health care. Patient understands that they maybe responsible for copays, deductible or coinsurance for this service. Cheryl consults [facility] RDN via Zoom for weight management nutrition therapy. She states that she has been battling her weight for many years, trying ot lose weight quickly and then regaining it, Recently she has taken a more slow and steady approach. She also had an episode of a fib recently and takes this as a reminder to keep up with healthy eating and self care habits She is now in a less stressful job than she was several years ago and feels this is helping her to maintain healthier habits. Typical intake: Breakfast (7-8am): 1/3 c 2% fat vanilla Romansh yogurt with 1/3 c chocolate henley granola, 1.5 c mixed fruit (berries and banana), tea Lunch(12-1pm): 1 slice bread with 2 slices cold cut, 1-2 t wilson, handful of baby carrots, water with liquid IV powder Dinner(6-7pm): 6 oz baked chicken, 1/2 c potato, 1/2 c vegetable, water She enjoys walking but is not consistent with it due to sciatica problems and cold weather. She hasa [employer] treadmill and knows that mice have gotten in to it and it needs to be cleaned out. Estimated energy requirement: 1900 Estimated intake: 9586-1965 Recommended protein intake: 65-80 g Estimated protein intake: 58-60 g Anticipated inadequate intake of protein, vegetables, fiber, calcium Recommend to increase protein by 20-30 g daily. Recommend Premier Protein beverage mid day Recommend to add 1-2 servings veggies daily Pat plans on working on adding the above and will call [employer] to arrange for an in home service call to clean out machine so she can use it again to start walking more regularly again F/U PRN documented in this encounter Plan of Treatment Upcoming Encounters Date Type Department Care Team (Late st Contact Info) Description 11/11/2024 15:30 EST Office Visit [facility] Family Medicine [address] [address] Osbaldo Dewitt NP [address] [place] [address] [phone] documented as of this encounter Visit Diagnoses Not on filedocumented in this encounter Care Teams Pan Reclaim Processor Relationship Specialty Start Date End Date Osbaldo Dewitt NP [address] [place] [address] [phone] PCP - General 09/01/[address] [place] [id number] Registered Dietitian Clinical Nutrition 10/21/23 documented as of this encounter
--- OUTSIDE RECORDS SUMMARY | 2024-09-30 00:19 | XMS_ITS | Encounter Summary ---
Author Organization [facility] Address [address] [place] [address] Care Team Providers Care Senior Commercial Loan Officer Name Role Phone Osbaldo Dewitt NP Primary Care Provider [phone] Reason for Visit * Reason Comments Medications Refill Encounter Details Date Type Department Care Team (Late st Contact Info) Description 08/10/2023 Refill [facility] [place] [facility] [address] [place] [address] Osbaldo Dewitt NP [address] [place] [address] Medications Refill Social History Tobacco [...] place to sleep or slept in a penitentiary (including now)? 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 documented in this encounter Plan of Treatment Upcoming Encounters Date Type Department Care Team (Late st Contact Info) Description 11/11/2024 15:30 EST Office Visit [facility] Family [address] [address] Osbaldo Dewitt NP [address] [place] [phone] documented as of this encounter Visit Diagnoses Not on filedocumented in this encounter Discontinued Medications Medication Sig Discontinue Reason Start Date End Da te clobetasoL (TEMOVATE) 0.05 % ointment Apply topically 2 times daily as needed for Other. 06/24/2023 08/11/2023 documented as of this encounter Care Teams Senior Commercial Loan Officer Relationship Specialty Start Date End Date Osbaldo Dewitt NP [address] [place] [address] [phone] PCP - General 09/01/19 documented as of this encounter
--- OUTSIDE RECORDS SUMMARY | 2024-09-30 00:19 | XMS_ITS | Encounter Summary ---
Author Organization [facility] Address [address] [place] [address] Care Team Providers Care Automotive Mechanical Engineer Name Role Phone Osbaldo Dewitt NP Primary Care Provider [phone] Unavailable [phone] Reason for Visit * Reason Comments Medications Refill Encounter Details Date Type Department Care Team (Late st Contact Info) Description 12/27/2022 Refill [facility] [address] [place], [place] [phone] Osbaldo Dewitt NP [address] [place] [address] Medications Refill Social History Tobacco [...] place to sleep or slept in a fdc (including now)? 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 documented in this encounter Plan of Treatment Upcoming Encounters Date Type Department Care Team ([facility] st Contact Info) Description 11/11/2024 15:30 EST Office Visit [facility] Family Medicine [address] [phone] Osbaldo Dewitt NP [address] [place] [address] [phone] documented as of this encounter Visit Diagnoses Diagnosis Rosacea documented in this encounter Discontinued Medications Medication Sig Discontinue Reason Start Date End Da te doxycycline (PERIOSTAT) 20 mg tabletIndications:Rosace a TAKE TWO TABLETS BY MOUTH EVERY DAY 12/24/2021 12/30/2022 documented as of this encounter Care Teams Automotive Mechanical Engineer Relationship Specialty Start Date End Date Osbaldo Dewitt NP [address] [place] [address] [phone] PCP - General 09/01/[address] [place] [address] [phone] Registered Dietitian Clinical Nutrition 10/21/23 documented as of this encounter
--- OUTSIDE RECORDS SUMMARY | 2024-09-30 00:19 | XMS_ITS | Encounter Summary ---
Author Organization [facility] Address [address] [place] [address] Care Team Providers Care Industrial Cleaning Technician Name Role Phone Osbaldo Dewitt NP Primary Care Provider [phone] Reason for Referral * Radiology Services (Routine/Next Available) - Authorization Not Required Specialty Diagnoses / Procedures Referred By Chance le Referred To Contact Diagnoses Menopausal and postmenopausal disorder Procedures DXA BONE DENSITY Osbaldo Dewitt NP [address] [place] [address] Phone: tel: fax: Referral ID Status Reason Start Date Expiration Date Visits Requested Visits Authorized [id number] Authorization Not Required 09/07/2024 1 1 * Radiology Services (Routine/Next Available) - New Request Specialty Diagnoses / Procedures Referred By Chance le Referred To Contact Diagnoses Encounter for screening mammogram for malignant neoplasm of breast Procedures MA BREAST SCREENING JULIAN BILATERAL Osbaldo Dewitt NP [address] [place] [address] Phone: tel: fax: Referral ID Status Reason Start Date Expiration Date V isits Requested Visits Authorized [id number] New Request 09/07/2024 1 1 * Laboratory Services (Routine/Next Available) - New Request Specialty Diagnoses / Procedures Referred By Chance le Referred To Contact Diagnoses Class 2 obesity due to excess calories without serious comorbidity with body mass index (BMI) of 35.0 to 35.9 in adult Procedures HEMOGLOBIN A1C Osbaldo Dewitt NP [address] [place] [address] Phone: tel: fax: Referral ID Status Reason Start Date Expiration Date V isits Requested Visits Authorized [id number] New Request 09/07/2024 1 1 * Laboratory Services (Routine/Next Available) - New Request Specialty Diagnoses / Procedures Referred By Chance t Referred To Contact Diagnoses Encounter for annual physical exam Procedures COMPREHENSIVE METABOLIC PANEL (CMP) Osbaldo Dewitt NP [address] [place] [address] Phone: tel: fax: Referral ID Status Reason Start Date Expiration Date V isits Requested Visits Authorized [id number] New Request 09/07/2024 1 1 * Laboratory Services (Routine/Next Available) - New Request Specialty Diagnoses / Procedures Referred By Chance le Referred To Contact Diagnoses Encounter for annual physical exam Procedures LIPID PROFILE (INCLUDES CHOLESTEROL, TRIGLYCERIDES, HDL, LDL) Osbaldo Dewitt NP [address] [place] [address] Phone: tel: fax: Referral ID Status Reason Start Date Expiration Date V isits Requested Visits Authorized [id number] New Request 09/07/2024 1 1 Reason for Visit * Reason Comments Annual Exam Encounter Details Date Type Department Care Team (Latest Contact Info) Description 09/07/2024 10:45 EST Office Visit [facility] Family Medicine [facility] [address] [place] [address] Osbaldo Dewitt NP [address] [place] [address] Encounter for annual physical exam (Primary Dx); Need for vaccination; Encounter for screening mammogram for malignant neoplasm of breast; Menopausal and postmenopausal disorder; Cervical cancer screening; Class 2 obesity due to excess calories without serious comorbidity with body mass index (BMI) of 35.0 to 35.9 in adult; Atrial fibrillation, unspecified type ([facility]); Anxiety Social History Tobacco Use Types Packs/Day Years Used Date Smoking Tobacco: Former Cigarettes 1977 Smokeless Tobacco: Never Alcohol Use Standard Drinks/Week Comments Not Currently 0 (1 standard drink = 0.6 oz pur e alcohol) 2/ [facility] [employer] Answer Date Recorded In the past 12 months has [employer], oil, or water [employer] threatened to shut off services in your [...] slept in a fdc (including now)? No 10/15/2023 [facility] - Inadequate Housing Answer Date Re corded What is your living situation today? I have a [facility] [place] place to live 08/25/[address] you li ve. Do you have problems with any of the following? None of the above 08/25/2024 [facility] - Transportation Answer Date Record ed In the past 12 months, has l ack of reliable transportation kept you from medical appointments, meetings, work or from getting things needed for daily living? No 08/25/2024 [facility] - Personal Safety Answer Date Recor ded [...] scream or curse at you? Never 08/25/2024 [facility] - Financial Strain Answer Date Mango rded How hard is it for you to pa y for the very basics like food, housing, medical care, and heating? Would you say it is: Not hard at all 08/25/2024 [facility] - Employment Answer Date Recorded Do you want help finding or keeping work or a job? I do not need or want help 08/25/2024 [facility] - Social Connections Answer Date Re corded If for any reason you need h elp with day-to-day activities such as bathing, preparing meals, shopping, managing finances, etc., do you get the help you need? I don't need any help 08/25/2024 How often do you feel lonely or isolated from those around you? Rarely 08/25/2024 [facility] - Education Answer Date Recorded Do you speak a language other than [place] at [employer] [facility]? No 08/25/2024 Do you want help with school or training? For example, starting or completing job training or getting a high school diploma, GED or equivalent. 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 Not on file Not on tone e documented as of this encounter Last Filed Vital Signs Vital Sign Reading Time Taken Comments Blood Pressure 130/80 09/07/2024 1035 EST Pulse 64 09/07/2024 1035 EST Temperature - - Respiratory Rate 18 09/07/2024 1035 EST Oxygen Saturation - - Inhaled Oxygen Concentration - - Weight 108.4 kg (239 lb) 09/07/2024 1035 EST Height 175.3 cm (5' 9.02) 09/07/2024 1035 EST Body Mass Index 35.27 09/07/2024 1035 EST documented in this encounter Ordered Prescriptions Prescription Sig Dispense Quantity Refills Last Filled Start Date End Date flecainide (TAMBOCOR) 100 mg tabletIndications: Atrial fibrillation, unspecified type (HCC-CMS) Take 1 Tablet by mouth 2 times daily. 180 Tablet 1 09/07/2024 venlafaxine (EFFEXOR-XR) 75 mg XR capsuleIndications :Anxiety Take 1 Capsule by mouth daily. 30 Capsule 2 09/07/2024 documented in this encounter Progress Notes * Osbaldo Dewitt, SUPERINTENDENT STATIONS - 09/07/2024 1045 EST Images from the original note were not included. [facility] [place] Preventive Service Visit Subjective: HPI: The 64 y.o. female presents for a routine check-up and exam. CONCERNS: Hypertension/A-fib Managed with diltiazem 240 mg daily, flecainide 100 mg twice daily and atenolol 25 mg QD. Medication adherence is good. Denies chest pain, shortness of breath, new onset edema. Sees cardiology at [facility]. 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 Romero showed chronic inflammation but no metaplasia or dysplasia. She has had 3 normal consecutive endoscopies, he recommends repeat only if symptomatic, pt prefers every 5 years. Managed on Prilosec 20mg QD. Rare breakthrough sxs. 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 Feels like depression has been worse, working on reducing alcohol. Allergies Uses flonase and claritin daily - generally stops flonase in the fall. Sxs are well controlled but year round. 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 Patient is postmenopausal. Last pap: 2019 Hx of abnormal pap: none Behavioral Health Screen PHQ-2 Little interest or pleasure in doing things?: (Patient-Rptd) Several days Feeling down, depressed, or hopeless?: (Patient-Rptd) Several days PHQ-2 SUBTOTAL: (Patient-Rptd) 2 SASQ How many times in the past year have you had 4 or more drinks in a single day?: (Patient-Rptd) (P) More than once AUDIT-10 How often do you have a drink containing alcohol?: (Patient-Rptd) (P) 4 or more times/week How many drinks containing alcohol do you have on a typical day when you are drinking?: (Patient-Rptd) (P) 3 or 4 How often do you have six or more drinks on one occasion?: (Patient-Rptd) (P) monthly How often during the last year have you found that you were not able to stop drinking once you had started?: (Patient-Rptd) (P) less than monthly How often during the last year have you failed to do what was normally expected of you because of drinking?: (Patient-Rptd) (P) Never How often during the last year have you needed a first drink in the morning to get yourself going after a heavy drinking session?: (Patient-Rptd) (P) never How often during the last year have you had a feeling of guilt or remorse after drinking?: (Patient-Rptd) (P) never How often during the last year have you been unable to remember what happened the night before because of your drinking?: (Patient-Rptd) (P) never Have you or someone else been injured because of your drinking?: (Patient-Rptd) (P) No Has a relative, friend, doctor, or other health care worker been concerned about your drinking or suggested you cut down?: (Patient-Rptd) (P) Yes, during past year AUDIT-10 TOTAL: (Patient-Rptd) (P) 12 AUDIT Interpretation: (Patient-Rptd) (P) Screen positive for Risky or Hazardous alcohol use AUDIT Suggested Action: (Patient-Rptd) (P) Offer community resources Prescription Misuse How many times in the past year have you used an illegal drug or used a prescription medication fornon-medical reasons?: (Patient-Rptd) (P) Never Health Maintenance Topic Date Due Advance Directive Never done Breast Cancer Screening 03/01/2024 Cervical Cancer Screening 04/20/2024 Pneumococcal Immunization (65+) (1 of 1 - PCV) Never done Fall Risk Screening 2024 Osteoporosis Screening 2024 Preventive Care Visit 11/18/2024 Social Determinants Of Health (SDOH) 08/25/2025 Depression Screening 09/07/2025 Lipid Profile Screening (Cholesterol) 12/15/2025 Colorectal Cancer Screening 09/05/2026 Tetanus (Adult) Immunization 11/18/2032 RSV Immunization ( or 60+ Years) Completed Pertussis (Adult) Immunization Completed Shingles Immunization Completed Hepatitis C Screen Completed Influenza Immunization (Adult) Completed COVID-19 Vaccine Completed HIV Screening Discontinued RETIRED Cervical Cancer Screening Discontinued CHRONIC HEALTH CONCERNS: Patient Active Problem List Diagnosis Date Noted CAM (obstructive sleep apnea) 09/07/2024 Atrial fibrillation ([facility]) 11/11/2023 Glenohumeral arthritis, left 03/11/2023 Anxiety 11/09/2019 Depression 11/09/2019 Insomnia 11/09/2019 Lichen sclerosus et atrophicus 11/09/2019 Menopausal syndrome (hot flashes) 11/09/2019 Postmenopause atrophic vaginitis 11/09/2019 Pure hypercholesterolemia 11/09/2019 Rosacea 11/09/2019 Seasonal allergic rhinitis 11/09/2019 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 Colby - [facility] Family History Problem Relation Age of Onset Dementia Mother Coronary Artery Disease Father Pacemaker Father Prostate Cancer Father No Known Sister Hypertension Brother Atrial fibrillation Brother Valvular heart disease Brother Atrial fibrillation Brother Colon Cancer Maternal Grandmother Colon Cancer Maternal Grandfather No Known Paternal Grandmother Aortic aneurysm Paternal Grandfather abdominal No Known Daughter No Known Son No Known Child No Known Maternal Aunt No Known Maternal Uncle No Known Paternal Aunt No Known Paternal Uncle No Known Grandchild No Known Cousin No Known Other BRCA1 Positive Neg Hx BRCA1 Negative Neg Hx BRCA2 Positive Neg Hx BRCA2 Negative Neg Hx Breast Cancer Neg Hx Breast Cancer (second onset) Neg Hx Ovarian Cancer Neg Hx Genetic Disease Carrier Neg Hx Social History Tobacco Use Smoking status: Former Current packs/day: 0.00 Types: Cigarettes Start date: 1975 Quit date: 1977 Years since quittin.9 Smokeless tobacco: Never Vaping Use Vaping status: Never Used Substance Use Topics Alcohol use: Not Currently Comment: 2/night Drug use: Never Current Outpatient Medications on File Prior to Visit Medication Sig Dispense Refill acetaminophen (TYLENOL) 500 mg tablet Take 2 Tablets by mouth 2 times daily. PRN atenoloL (TENORMIN) 25 mg tablet TAKE ONE TABLET BY MOUTH ONCE DAILY 90 Tablet 3 cholecalciferol, Vitamin D3, 1,000 unit tablet Take 1 Tablet by mouth daily. clobetasoL (TEMOVATE) 0.05 % ointment APPLY TOPICALLY TWICE DAILY NEEDED 30 g 1 dilTIAZem (CARDIZEM CD) 180 mg ER capsule Take 1 Capsule by mouth every morning. (Patient taking differently: Take 240 mg by mouth every morning.) 90 Capsule 3 doxycycline (PERIOSTAT) 20 mg tablet TAKE TWO TABLETS BY MOUTH ONCE A DAY 180 Tablet 3 ELIQUIS 5 mg tablet TAKE ONE TABLET BY MOUTH TWICE A DAY 180 Tablet 3 estradioL (ESTRACE) 0.01 % (0.1 mg/gram) vaginal cream Place 0.5 g vaginally twice a week. 42.5 g 2 fluticasone propionate (FLONASE) 50 mcg/actuation nasal spray Instill 2 Sprays into both nostrils daily as needed. omeprazole (PRILOSEC) 20 mg capsule TAKE ONE CAPSULE BY MOUTH AT BEDTIME 90 Capsule 3 [id number] ORAL Take by mouth. No current facility-administered medications on file prior to visit. ROS: Review of Systems Musculoskeletal: Positive for arthralgias (knees). All other systems reviewed and are negative. I have reviewed patient's medication list, past medical history, social history, and family historyand updated as appropriate on 09/07/2024. Objective: Examination: Vitals: BP 130/80 Pulse 64 Resp 18 Ht 175.3 cm (69.02) Wt (!) 108.4 kg (239 lb) BMI 35.27 kg/m??Body mass index is 35.27 kg/m??. Physical Exam Constitutional: General: She is not in acute distress. Appearance: She is well-developed. She is obese. She is not diaphoretic. HENT: Head: Normocephalic and atraumatic. Right Ear: External ear normal. Left Ear: External ear normal. Eyes: Conjunctiva/sclera: Conjunctivae normal. Pupils: Pupils are equal, round, and reactive to light. Neck: Thyroid: No thyromegaly. Vascular: No carotid bruit. Cardiovascular: Rate and Rhythm: Normal rate and regular rhythm. Heart sounds: Normal heart sounds. No murmur heard. Pulmonary: Effort: Pulmonary effort is normal. Breath sounds: Normal breath sounds. Abdominal: General: Bowel sounds are normal. There is no distension. Palpations: Abdomen is soft. Tenderness: There is no abdominal tenderness. Genitourinary: Labia: Right: No rash or tenderness. Left: No rash or tenderness. Vagina: Normal. No vaginal discharge, erythema, tenderness or bleeding. Cervix: No discharge or friability. Musculoskeletal: General: No deformity. Normal range of motion. Cervical back: Normal range of motion and neck supple. Lymphadenopathy: Cervical: No cervical adenopathy. Skin: General: Skin is warm and dry. Capillary Refill: Capillary refill takes less than 2 seconds. Findings: No rash. Neurological: Mental Status: She is alert and oriented to person, place, and time. Deep Tendon Reflexes: Reflexes normal. Psychiatric: Behavior: Behavior normal. Thought Content: Thought content normal. Judgment: Judgment normal. Data reviewed with patient (past results): No results found for this or any previous visit (from the past 24 hours). Assessment & Plan: Sandie was seen today for annual exam. Diagnoses and all orders for this visit: Cheryl was seen today for annual exam. Diagnoses and all orders for this visit: Encounter for annual physical exam - LIPID PROFILE (INCLUDES CHOLESTEROL, TRIGLYCERIDES, HDL, LDL); Future - COMPREHENSIVE METABOLIC PANEL (CMP); Future Need for vaccination - PNEUMOCOCCAL CONJUGATE VACCINE 20-VALENT (PCV20) (PREVNAR-20) 0.5 ML IM (6 WKS+) Encounter for screening mammogram for malignant neoplasm of breast - Cancel: MA BREAST SCREENING JULIAN BILATERAL; Future - MA BREAST SCREENING JULIAN BILATERAL; Future Menopausal and postmenopausal disorder - Cancel: DXA BONE DENSITY; Future - DXA BONE DENSITY; Future Cervical cancer screening - PAP TEST Class 2 obesity due to excess calories without serious comorbidity with body mass index (BMI) of 35.0 to 35.9 in adult - HEMOGLOBIN A1C; Future Atrial fibrillation, unspecified type ([facility]) - flecainide (TAMBOCOR) 100 mg tablet; Take 1 Tablet by mouth 2 times daily. Anxiety Comments: Worsening depression, reviewed interventions. Plan to increase Effexor to 75 mg. Declines counseling at this time. Orders: - venlafaxine (EFFEXOR-XR) 75 mg XR capsule; Take 1 Capsule by mouth daily. Blood pressure and BMI goals reviewed. Immunizations reviewed. Fasting lipid and blood glucose ordered. Mammogram screening ordered. Screening colonoscopy due 2025. DEXA ordered. Pap/HPV screening completed today. Discussed safety prevention measures, healthy diet and exercise goals, recommended alcohol intake. Follow up: Return in about 6 weeks (around 10/19/2024) for depression. Osbaldo Dewitt NP Speech recognition software was used to complete this progress note. Typographical errors may be present. documented in this encounter Plan of Treatment Upcoming Encounters Date Type Department Care Team (Late st Contact Info) Description 11/11/2024 15:30 EST Office Visit [facility] Family Medicine [address] [address] Osbaldo Dewitt NP [address] [place] [address] Scheduled Orders Name Type Priority Associated Diagnoses Orde r Schedule LIPID PROFILE (INCLUDES CHOLESTEROL, TRIGLYCERIDES, HDL, LDL) Lab Routine Encounter for annual physical exam Expected: 09/08/2024 (Approximate), Expires: 03/08/2025 COMPREHENSIVE METABOLIC PANEL (CMP) Lab Routine Encounter for annual physical exam Expected: 09/08/2024 (Approximate), Expires: 03/08/2025 HEMOGLOBIN A1C Lab Routine Class 2 obesity due to excess calories without serious comorbidity with body mass index (BMI) of 35.0 to 35.9 in adult Expected: 09/08/2024 (Approximate), Expires: 03/08/2025 MA BREAST SCREENING JULIAN BILATERAL Imaging Routine Encounter for screening mammogram for malignant neoplasm of breast Expected: 09/21/2024 (Approximate), Expires: 09/07/2025 DXA BONE DENSITY Imaging Routine Menopausal and postmenopausal disorder Expected: 09/21/2024 (Approximate), Expires: 03/08/2026 documented as of this encounter Procedures Procedure Name Priority Date/Time Associated Diagnosis Comments PAP TEST Routine 09/07/2024 11:43 EST Cervical cancer screening HPV DNA DETECTION WITH GENOTYPING, PCR Today 09/07/2024 11:43 EST Cervical cancer screening documented in this encounter Results * HPV DNA DETECTION WITH GENOTYPING, PCR (09/07/2024 11:43 EST) HPV High Risk type 16, PCR Negative Negative 09/14/2024 14:06 [facility] HPV High Risk type 18, PCR Negative Negative 09/14/2024 14:06 [facility] HPV other High Risk types, PCR Negative Negative 09/14/2024 14:06 [facility] Comment: The following Other High Risk HPV types were not detected: ??31,33, 35, 39, 45, 51, 52, 56, 58, 59, 66 and 68. Pap Test CERVIX UTERI STRUCTURE / Unknown 09/07/2024 11:43 EST 09/13/2024 10:39 EST us Osbaldo Dewitt NP MICROBIOLOGY - GENERAL ORDERAB LES Final Result Performing Organization Address City/State/[facility] Co de Phone Number [facility] [address] [place] [phone] * PAP TEST (09/07/2024 11:43 EST) Specimens A. Cervix and/or Endocervix , ThinPrep Imaging System with Manual Evaluation 09/14/2024 14:06 [facility] Specimen Adequacy Satisfactory for Evaluation - assessment of transformation zone component not applicable ( e.g. atrophy, vaginal sample, hysterectomy) 09/14/2024 14:06 [facility] General Categorization Negative for intraepithelial lesion or malignancy 09/14/2024 14:06 [facility] Attestation . 09/14/2024 14:06 [facility] at 1406 Clinical History Screening cervical cancer 09/14/2024 14:06 [facility] Performing Lab [facility] 09/14/2024 14:06 [facility] Scanned Images 09/14/2024 14:06 [facility] HPV High Risk type 16, PCR Negative 09/14/2024 14:06 [facility] HPV High Risk type 18, PCR Negative 09/14/2024 14:06 [facility] HPV Other High Risk Types, PCR Negative The following Other High Risk HPV types were not detected: 31,33, 35, 39, 45, 51, 52, 56, 58, 59, 66 and 68. 09/14/2024 14:06 [facility] Pap Test CERVIX UTERI STRUCTURE / Unknown 09/07/2024 11:43 EST 09/07/2024 11:43 EST us Osbaldo Dewitt NP PATHOLOGY ORDERABLES Final Res ult [facility] [address] [place] [address] documented in this encounter Visit Diagnoses Diagnosis Encounter for annual physical exam- Primary Need for vaccination Need for prophylactic vaccination and inoculation against unspecified single disease Encounter for screening mammogram for malignant neoplasm of breast Other screening mammogram Menopausal and postmenopausal disorder Unspecified menopausal and postmenopausal disorder Cervical cancer screening Screening for malignant neoplasm of the cervix Class 2 obesity due to excess calories without serious comorbidity with body mass index (BMI) of 35.0 to 35.9 in adult Atrial fibrillation, unspecified type ([facility]) Anxiety Anxiety state, unspecified documented in this encounter Discontinued Medications Medication Sig Discontinue Reason Start Date End Da te venlafaxine (EFFEXOR-XR) 37.5 mg XR capsuleIndications:Anxie ty,Depression, unspecified depression type TAKE ONE CAPSULE BY MOUTH ONCE DAILY Dose adjustment 05/19/2024 09/07/2024 flecainide (TAMBOCOR) 100 mg tablet Take 1 Tablet by mouth 2 times daily. Reorder 05/31/2024 09/07/2024 hydroCHLOROthiazide (HYDRODIURIL) 25 mg tablet Take 1 Tablet by mouth daily. Abstraction 09/18/2023 09/07/2024 documented as of this encounter Orders Immunization/Injection Count Last Ordered Date First Ordered Date PNEUMOCOCCAL CONJUGATE VACCI NE 20-VALENT (PCV20) (PREVNAR-20) 0.5 ML IM (6 WKS+) 1 09/07/2024 documented in this encounter Care Teams Industrial Cleaning Technician Relationship Specialty Start Date End Date Osbaldo Dewitt NP [address] [place] [id number] PCP - General 09/01/19 documented as of this encounter
--- OUTSIDE RECORDS SUMMARY | 2024-09-30 00:19 | XMS_ITS | Encounter Summary ---
Author Organization [facility] Address [address] [place] [address] Care Team Providers Care Online Merchandising Manager Name Role Phone Osbaldo Dewitt NP Primary Care Provider [phone] Reason for Visit * Reason Onset Date Comments Medications Refill 05/27/2024 Encounter Details Date Type Department Care Team (Late st Contact Info) Description 05/27/2024 Refill [facility] [address] [place] [address] Osbaldo Dewitt NP [address] [place] [address] Medications Refill Social History Tobacco [...] to sleep or slept in a senior living (including now)? 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
--- OUTSIDE RECORDS SUMMARY | 2024-09-30 00:19 | XMS_ITS | Encounter Summary ---
Author Organization [facility] Address [address] [place] [address] Care Team Providers Care Sweater Operator Name Role Phone Osbaldo Dewitt NP Primary Care Provider Reason for Referral * PT/OT/ST (Routine/Next Available) - Closed Specialty Diagnoses / Procedures [facility] Referred To Contact Diagnoses Chronic left-sided low back pain without sciatica Osbaldo Dewitt NP Phone: tel: fax: Referral ID Status Reason Start Date Expiration Date V isits Requested Visits Authorized [id number] Closed Specialty Services Required 11/11/2023 1 1 Question Answer Reason for Request: left sided low back pain SITE [facility] Reason for Visit * Reason Comments Pre-op Exam Encounter Details Date Type Department Care Team (Late st Contact Info) Description 11/11/2023 11:30 EST Office Visit [facility] [address] [place] [address] Osbaldo Dewitt NP [address] [place] [address] Pre-op evaluation (Primary Dx); Shoulder arthritis; Chronic left-sided low back pain without sciatica Social History Tobacco Use Types Packs/Day Years [...] in a senior care (including now)? 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 Not on file Not on tone e documented as of this encounter Last Filed Vital Signs Vital Sign Reading Time Taken Comments Blood Pressure 130/80 11/11/2023 1132 EST Pulse 70 11/11/2023 1132 EST Temperature - - Respiratory Rate 16 11/11/2023 1132 EST Oxygen Saturation - - Inhaled Oxygen Concentration - - Weight 104.8 kg (231 lb) 11/11/2023 1132 EST Height 175.3 cm (5' 9.02) 11/11/2023 1132 EST Body Mass Index 34.09 11/11/2023 1132 EST documented in this encounter Progress Notes * Osbaldo Dewitt, HAND [employer] MENDER - 11/11/2023 1130 EST Images from the original note were not included. [facility] Pre[place] Evaluation Patient ID: Sandie Manriquez is a 63 y.o. female Date of Service: 11/11/2023 Reason for Visit: Preop Subjective: History: Right shoulder pain for 4 years, has tried PT, ice/heat, injections x 3 without full benefit. Continues to have chronic pain, difficulty sleeping, diminished ROM Procedure: R total shoulder replacement Surgeon: Christine Colby MD - [facility] Date: 12/09/23 Relevant: HX Tobacco: Quit 1977 Social History Tobacco Use Smoking Status Former Current packs/day: 0.00 Types: Cigarettes Start date: 1975 Quit date: 1977 Years since quittin.1 Smokeless Tobacco Never Alcohol Social History Substance and Sexual Activity Alcohol Use Not Currently Alcohol/week: 8.0 standard drinks of alcohol Types: 8 Glasses of wine per week Comment: 8/week Illicits Social History Substance and Sexual Activity Drug Use Never Activity level >4METs Walks up a flight of stairs without shortness of breath (=/>4METS) RISK FACTORS: High-risk surgery (intraperitoneal, intrathoracic, or suprainguinal vascular surgery): no History of ischemic SC or a positive exercise test, current complaint of chest pain considered to be secondary to myocardial ischemia: no History of HF: no History of Cerebrovascular disease: no Diabetes mellitus requiring treatment with insulin: no Serum creatinine > 2.0 mg/dl: no Current Outpatient Medications: acetaminophen (TYLENOL) 500 mg tablet, Take 2 Tablets by mouth 2 times daily., Disp: , Rfl: atenoloL (TENORMIN) 25 mg tablet, Take 1 Tablet by mouth daily., Disp: 90 Tablet, Rfl: 3 cholecalciferol, Vitamin D3, 1,000 unit tablet, Take 1 Tablet by mouth daily., Disp: , Rfl: clobetasoL (TEMOVATE) 0.05 % ointment, APPLY TOPICALLY TWICE DAILY NEEDED, Disp: 30 g, Rfl: 1 dilTIAZem (CARDIZEM CD) 180 mg ER capsule, Take 1 Capsule by mouth every morning., Disp: 90 Capsule, Rfl: 3 doxycycline (PERIOSTAT) 20 mg tablet, Take 2 Tablets by mouth daily., Disp: 180 Tablet, Rfl: 3 ELIQUIS 5 mg tablet, Take 1 Tablet by mouth 2 times daily., Disp: 180 Tablet, Rfl: 3 estradioL (ESTRACE) 0.01 % (0.1 mg/gram) vaginal cream, Place 0.5 g vaginally twice a week., Disp: 1 Tube, Rfl: 3 fluticasone propionate (FLONASE) 50 mcg/actuation nasal spray, Instill 2 Sprays into both nostrils daily as needed., Disp: , Rfl: hydroCHLOROthiazide (HYDRODIURIL) 25 mg tablet, Take 1 Tablet by mouth daily., Disp: 90 Tablet, Rfl: 3 omeprazole (PRILOSEC) 20 mg capsule, TAKE ONE CAPSULE BY MOUTH AT BEDTIME, Disp: 90 Capsule, Rfl: 3 ETHHFMA-UTIN-VWLAS-OREG-CAPRYL ORAL, Take by mouth., Disp: , Rfl: venlafaxine (EFFEXOR-XR) 37.5 mg XR capsule, Take 1 capsule by mouth every day., Disp: 90 Capsule, Rfl: 1 Allergies Allergen Reactions Miconazole Rash burn Other - See Comments dust mites - sinus issues Pollen Extracts sinus issues Sulfa (Sulfonamide Antibiotics) Rash sulfa 1 of 2 sulfa 2 of 2 Patient Active Problem List Diagnosis Hypertension Anxiety Depression Insomnia Lichen sclerosus et atrophicus Menopausal syndrome (hot flashes) Postmenopause atrophic vaginitis Pure hypercholesterolemia Rosacea Seasonal allergic rhinitis Cronin esophagus Glenohumeral arthritis, left Atrial fibrillation ([facility]) Past Medical History: Diagnosis Date GERD (gastroesophageal reflux disease) Ramy Fundoplication Past Surgical History: Procedure Laterality Date CARPAL TUNNEL RELEASE Right 2003 GASTRIC FUNDOPLICATION 2009 Ramy-fundoplication at [facility] Family History Problem Relation Age of Onset Dementia Mother Coronary Artery Disease Father Pacemaker Father Prostate Cancer Father No Known Sister Hypertension Brother Atrial fibrillation Brother Valvular heart disease Brother Colon Cancer Maternal Grandmother Colon Cancer [...] Genetic Disease Carrier Neg Hx Social History Socioeconomic History Marital status: Life Partner Spouse name: Tacos Menard - Partner Years of education: BA Highest education level: Bachelor's degree (e.g., BA, AB, BS) Occupational History 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 Tobacco Use Smoking status: Former Current packs/day: 0.00 Types: Cigarettes Start date: 1975 Quit date: 1977 Years since quittin.1 Smokeless tobacco: Never Vaping Use Vaping Use: Never used Substance and Sexual Activity Alcohol use: Not Currently Alcohol/week: 8.0 standard drinks of alcohol Types: 8 Glasses of wine per week Comment: 8/week Drug use: Never Sexual activity: Yes Partners: Male Social Determinants of Health Financial Resource Strain: Low Risk (10/15/2023) Overall Financial Resource Strain (CARDIA) Difficulty of Paying Living Expenses: Not hard at all Food Insecurity: No Food Insecurity (10/15/2023) Hunger Vital Sign Worried About Running Out of Food in the Last Year: Never true Ran Out of Food in the Last Year: Never true Transportation Needs: No Transportation Needs (10/15/2023) PRAPARE - Transportation Lack of Transportation (Medical): No Lack of Transportation (Non-Medical): No Stress: Stress Concern Present (12/05/2020) [employer] - Occupational Stress Questionnaire Feeling of Stress : To some extent Housing Stability: Low Risk (10/15/2023) Housing Stability Vital Sign Unable to Pay for Housing in the Last Year: No Number of Places Lived in the Last Year: 2 Unstable Housing in the Last Year: No ROS: CONSTITUTIONAL: Denies fevers/chills, fatigue, weight loss or weight gain. EYES: Denies floaters, irritation. + cataract left eye EARS/NOSE/MOUTH/THROAT: No difficulty swallowing, sore throat, allergies, dental problems. CARDIOVASCULAR: Denies heart palpitations, chest pain/pressure, peripheral edema. RESPIRATORY: Denies wheezing, shortness of breath, cough, sleep apnea, + snoring GASTROINTESTINAL: Denies abdominal pain, nausea, constipation, diarrhea, blood in stool. : Denies dysuria, hematuria, incontinence. MUSC: Denies arthralgias, myalgias, joint swelling, back pain. SKIN: Denies skin rashes or lesions. + rough lesion on left leg, intermittently present for 8 months NEURO: Denies loss of sensation, paresthesias, focal weakness, difficulty walking. + CTS left wrist PSYCHIATRIC: Denies depressive symptoms or anxiety. ENDOCRINE: Denies new polyuria, polydipsia. HEMATOLOGIC/LYMPHATIC: Denies easy bruising, easy bleeding. ALLERGIC/IMMUNOLOGIC: Denies allergy to adhesive, iodine, latex. INFECTIOUS DISEASE: Denies recent exposure to infectious diseases, MRSA, VRE, COVID19. ANESTHESIA: + nausea, vomiting with anesthesia Objective: VS: BP 130/80 Pulse 70 Resp 16 Ht 175.3 cm (69.02) Wt (!) 104.8 kg (231 lb) BMI 34.09 kg/m?? Body mass index is 34.09 kg/m??. Physical Exam: Comprehensive Examination: GENERAL APPEARANCE: no acute distress, pleasant, non-toxic appearing. HEENT: HEAD: NC/AT; EYES: EOMI, PERRLA, anicteric sclerae; NECK: supple, no lymphadenopathy, no thyromegaly, no carotid bruit. CHEST: normal shape and expansion. HEART: regular rate and rhythm, normal S1S2, no murmurs. LUNGS: good air entry bilaterally, clear to auscultation bilaterally, no wheezes/rhonchi/rales. ABDOMEN: soft, nontender, non-distended, no guarding or rebound, no masses palpated, no hepatosplenomegaly, normoactive bowel sounds. EXTREMITIES: no cyanosis, no clubbing, no edema. PERIPHERAL PULSES: symmetrical bilateral. MUSCULOSKELETAL: no obvious deformity. SKIN: warm and dry, no suspicious lesions. NEUROLOGIC EXAM: alert and oriented x 3, normal gait. Assessment/Plan: Sandie was seen today for pre-op exam. Diagnoses and all orders for this visit: Pre-op evaluation Shoulder arthritis Sandie is a 63-year-old female with past medical history of hypertension, hyperlipidemia, atrial fibrillation anticoagulated with Eliquis, allergic rhinitis, hot flashes, Cronin's esophagus, depression/anxiety, osteoarthritis, rosacea and insomnia who presents today for preop evaluation for right shoulder replacement. All chronic problems are well-controlled. Endorses nausea and vomiting with anesthesia in the past, EtOH use of 8 drinks weekly. RCRI score = 0. This equates to a 0.4% risk of a major cardiac event; EKG: completed at [facility] 10/08/23, interpretation: EKG: October 08, 2023: Sinus rhythmat 64 bpm. Axes and intervals are within normal limits. No evidence of ischemia or infarct. Labs: Normal CMP, HbA1c 10/29. Further labs deferred to surgery. I do not find any contraindication for her to proceed with this procedure. Medication changes prior to surgery: Hold hydrochlorothiazide the morning of surgery, hold Eliquis 48 hours prior to surgery, resume the day after surgery. Chronic left-sided low back pain without sciatica - AMB CONS/FOLLOW UP PHYSICAL THERAPY - OUTSIDE OF NETWORK; Future Return for follow up as needed. Osbaldo Dewitt APRN documented in this encounter Plan of Treatment Upcoming Encounters Date Type Department Care Team (Late st Contact Info) Description 11/11/2024 15:30 EST Office Visit [facility] [address] [address] Osbaldo Dewitt NP [address] [place] [phone] Scheduled Referrals Name Type Priority Associated Diagnoses Order Schedule AMB CONS/FOLLOW UP PHYSICAL THERAPY - OUTSIDE OF NETWORK Outpatient Referral Routine/Next Available Chronic left-sided low back pain without sciatica Expected: 11/18/2023 (Approximate), Expires: 11/11/2024 documented as of this encounter Visit Diagnoses Diagnosis Pre-op evaluation- Primary Preoperative examination, unspecified Shoulder arthritis Unspecified arthropathy, shoulder region Chronic left-sided low back pain without sciatica documented in this encounter Discontinued Medications Medication Sig Discontinue Reason Start Date End Da te apixaban (ELIQUIS) 5 mg tablet Take 1 Tablet by mouth 2 times daily for 30 days. Duplicate order 10/03/2023 11/11/2023 dilTIAZem (CARDIZEM CD) 180 mg ER capsule Take 1 Capsule by mouth daily for 30 days. Duplicate order 10/03/2023 11/11/2023 doxycycline (PERIOSTAT) 20 mg tablet Take 1 Tablet by mouth 2 times daily for 30 days. Duplicate order 10/03/2023 11/11/2023 cetirizine (ZYRTEC) 10 mg tablet Take 1 Tablet by mouth daily. Abstraction 11/11/2023 documented as of this encounter Care Teams Sweater Operator Relationship Specialty Start Date End Date Osbaldo Dewitt NP [address] [place] [phone] PCP - General 09/01/19 documented as of this encounter
--- OUTSIDE RECORDS SUMMARY | 2024-09-30 00:19 | XMS_ITS | Encounter Summary ---
Author Organization [facility] Address [address] [place] [address] Care Team Providers Care Managing Jeweler Name Role Phone Osbaldo Dewitt NP Primary Care Provider [phone] Reason for Visit * Reason Onset Date Comments Results 12/19/2022 Encounter Details Date Type Department Care Team (Late st Contact Info) Description 12/19/2022 Telephone [facility] [address] [place] [address] Osbaldo Dewitt NP [address] [place] [address] Results Social History Tobacco Use Types Packs/Day Years [...] 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 Please push XRs to [facility]. * Telephone Encounter - Osbaldo Dewitt NP - 12/19/2022 1514 EDT Please let Sandie know her knee x-ray showed normal alignment, no joint effusion but mild arthritis with periarticular spurring and degenerative changes. Please have her follow-up with orthopedics as scheduled. documented in this encounter Plan of Treatment Upcoming Encounters Date Type Department Care Team (Late st Contact Info) Description 11/11/2024 15:[address] [facility] [address] [address] Osbaldo Dewitt NP [address] [place] [address] documented as of this encounter Visit Diagnoses Not on filedocumented in this encounter Care Teams Managing Jeweler Relationship Specialty Start Date End Date Osbaldo Dewitt NP [address] [place] [address] PCP - General 09/01/19 documented as of this encounter
--- OUTSIDE RECORDS SUMMARY | 2024-09-30 00:19 | XMS_ITS | Encounter Summary ---
Author Organization [facility] Address [address] [place] [address] Care Team Providers Care Ehs Teacher Name Role Phone Osbaldo Dewitt NP Primary Care Provider [phone] Reason for Visit * Reason Comments Pre-op Exam Encounter Details Date Type Department Care Team (Latest Contact Info) Description 02/20/2023 11:15 EDT Office Visit [facility] Family Medicine [facility] [address] [place] [address] Osbaldo Dewitt NP [address] [place] [address] Primary osteoarthritis of left shoulder (Primary Dx); Pre-op evaluation; Elevated fasting glucose Social History Tobacco Use Types Packs/Day Years Used Date Smoking Tobacco: Former Cigarettes 1 - 1977 Smokeless Tobacco: Never Tobacco Cessation:Counseling Given: [...] [place] [facility] (including [place])? 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 [facility] [place] Preoperative Evaluation Patient ID: Sandie Manriquez is a 62 y.o. female Date of Service: 02/20/2023 Reason for Visit: Pre-op Exam Subjective: History: Left shoulder pain for several years, history of osteoarthritis and partial rotator cuff tear, status post injections with waning benefit. Procedure: L shoulder replacement [place] [facility] [place]: 03/11/2023 Relevant HX: Hypertension, hyperlipidemia, Cronin's esophagus, depression, insomnia Tobacco: Quit 1977 Social History Tobacco Use Smoking Status Former ??? Years: 2.00 ??? Types: Cigarettes ??? Quit date: 1977 ??? Years since quittin.4 Smokeless Tobacco Never Alcohol Social History Substance and Sexual Activity Alcohol Use Yes ??? Alcohol/week: 14.0 standard drinks ??? Types: 14 Glasses of wine per week Illicits Social History Substance and Sexual Activity Drug Use Never Activity level: > 4 METs Walks up a flight of stairs without shortness of breath (=/>4METS) RISK FACTORS: High-risk surgery (intraperitoneal, intrathoracic, or suprainguinal vascular surgery): no History of ischemic [place] or a positive exercise test, current complaint of chest pain considered to be secondary to myocardial ischemia: no History of HF: no History of Cerebrovascular disease: no Diabetes mellitus requiring treatment with insulin: no Serum creatinine > 2.0 mg/dl: no Current Outpatient Medications: ??? atenoloL (TENORMIN) 25 mg tablet, Take 1 Tablet by mouth daily., Disp: 90 Tablet, Rfl: 0 ??? cetirizine (ZYRTEC) 10 mg tablet, Take 10 mg by mouth daily., Disp: , Rfl: ??? cholecalciferol, Vitamin D3, 1,000 unit tablet, Take 1,000 Units by mouth daily., Disp: , Rfl: ??? clobetasoL (TEMOVATE) 0.05 % ointment, Apply topically 2 times daily as needed for Other., Disp: 30 g, Rfl: 1 ??? doxycycline (PERIOSTAT) 20 mg tablet, TAKE TWO TABLETS BY MOUTH EVERY DAY, Disp: 180 Tablet, Rfl: 3 ??? estradioL (ESTRACE) 0.01 % (0.1 mg/gram) vaginal cream, Place 0.5 g vaginally twice a week., Disp: 1 Tube, Rfl: 3 ??? fluticasone propionate (FLONASE) 50 mcg/actuation nasal spray, Instill 2 Sprays into both nostrils daily as needed., Disp: , Rfl: ??? glucosamine sulfate 500 mg capsule, Take 2 Caps by mouth daily., Disp: , Rfl: ??? hydroCHLOROthiazide (HYDRODIURIL) 25 mg tablet, TAKE ONE TABLET BY MOUTH ONCE DAILY, Disp: 90 Tablet, Rfl: 0 ??? losartan (COZAAR) 100 mg tablet, TAKE ONE TABLET BY MOUTH EVERY DAY, Disp: 90 Tablet, Rfl: 3 ??? omeprazole (PRILOSEC) 20 mg capsule, TAKE ONE CAPSULE BY MOUTH AT BEDTIME, Disp: 90 Capsule, Rfl: 1 ??? NYVHHYW-TBFE-JJYUL-OREG-CAPRYL ORAL, Take by mouth., Disp: , Rfl: ??? venlafaxine (EFFEXOR-XR) 37.5 mg XR capsule, TAKE ONE CAPSULE BY MOUTH EVERY DAY, Disp: 90 Capsule, Rfl: 2 Allergies Allergen Reactions ??? Miconazole Rash burn ??? Other - See Comments dust mites - sinus issues ??? Pollen Extracts sinus issues ??? Sulfa (Sulfonamide Antibiotics) Rash sulfa 1 of 2 sulfa 2 of 2 Patient Active Problem List Diagnosis ??? Hypertension ??? Anxiety ??? Depression ??? Insomnia ??? Lichen sclerosus et atrophicus ??? Menopausal syndrome (hot flashes) ??? Postmenopause atrophic vaginitis ??? Pure hypercholesterolemia ??? Rosacea ??? Seasonal allergic rhinitis ??? Cronin esophagus Past Medical History: Diagnosis Date ??? GERD (gastroesophageal reflux disease) Ramy Fundoplication Past Surgical History: Procedure Laterality Date ??? CARPAL TUNNEL RELEASE Right 2002 ??? [place]STRIC FUNDOPLICATION [place] [facility] [place] Family History Problem Relation Age of Onset ??? Dementia Mother ??? Coronary Artery Disease Father ??? Pacemaker Father ??? Prostate Cancer Father ??? No Known Sister ??? Hypertension Brother ??? Atrial fibrillation Brother ??? Colon Cancer Maternal Grandmother ??? Colon Cancer Maternal Grandfather ??? No Known Paternal Grandmother ??? Aortic aneurysm Paternal Grandfather abdominal ??? No Known Daughter ??? No Known Son ??? No Known Child ??? No Known Maternal Aunt ??? No Known Maternal Uncle ??? No Known Paternal Aunt ??? No Known Paternal Uncle ??? No Known Grandchild ??? No Known Cousin ??? No Known Other ??? BRCA1 Positive Neg Hx ??? BRCA1 Negative Neg Hx ??? BRCA2 Positive Neg Hx ??? BRCA2 Negative Neg Hx ??? Breast Cancer Neg Hx ??? Breast Cancer (second onset) Neg Hx ??? Ovarian Cancer Neg Hx ??? Genetic Disease Carrier Neg Hx Social History Socioeconomic History ??? Marital status: Life Partner Spouse name: Tacos Menard - Partner ??? Years of education: BA ??? Highest education level: Bachelor's degree (e.g., BA, AB, BS) Occupational History ??? 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 Smoking status: Former Years: 2.00 Types: Cigarettes Quit date: 1977 Years since quittin.4 ??? Smokeless tobacco: Never Vaping Use ??? Vaping Use: Never used Substance and Sexual Activity ??? Alcohol use: Yes Alcohol/week: 14.0 standard drinks Types: 14 Glasses of wine per week ??? Drug use: Never ??? Sexual activity: Yes Partners: Male Social Determinants of Health Financial Resource Strain: Low Risk ??? Difficulty of Paying Living Expenses: Not hard at all Food Insecurity: No Food Insecurity ??? Worried About Running Out of Food in the Last Year: Never true ??? Ran Out of Food in the Last Year: Never true Transportation Needs: No Transportation Needs ??? Lack of Transportation (Medical): No ??? Lack of Transportation (Non-Medical): No Housing Stability: Low Risk ??? Unable to Pay for Housing in the Last Year: No ??? Number of Places Lived in the Last Year: 2 ??? Unstable Housing in the Last Year: No ROS: CONSTITUTIONAL: Denies fevers/chills, fatigue, weight loss or weight gain. EYES: Denies blurry vision, floaters, irritation. EARS/NOSE/MOUTH/THROAT: No difficulty swallowing, sore throat, allergies, dental problems. +PND CARDIOVASCULAR: Denies heart palpitations, chest pain/pressure, peripheral edema. RESPIRATORY: Denies wheezing, shortness of breath, cough, sleep apnea. + snoring GASTROINTESTINAL: Denies abdominal pain, nausea, constipation, diarrhea, blood in stool. : Denies dysuria, hematuria, incontinence. MUSC: Denies myalgias, joint swelling, back pain. + knee and hip pain SKIN: Denies skin rashes or lesions. NEURO: Denies loss of sensation, paresthesias, focal weakness, difficulty walking. PSYCHIATRIC: Denies depressive symptoms or anxiety. ENDOCRINE: Denies new polyuria, polydipsia. HEMATOLOGIC/LYMPHATIC: Denies easy bruising, easy bleeding. ALLERGIC/IMMUNOLOGIC: Denies allergy to adhesive, iodine, latex. INFECTIOUS DISEASE: Denies recent exposure to infectious diseases, MRSA, VRE, COVID19. ANESTHESIA: Endorses nausea and dry heaves with anesthesia in the past Objective: VS: BP 126/88 Pulse 69 Resp 16 Ht 175.3 cm (69.02) Wt (!) 111.1 kg (245 lb) SpO2 97% BMI 36.16 kg/m?? Body mass index is 36.16 kg/m??. Physical Exam: Comprehensive Examination: GENERAL APPEARANCE: no acute distress, pleasant, non-toxic appearing. HEENT: HEAD: NC/AT; EYES: EOMI, PERRLA, anicteric sclerae; EARS: normal auditory canal, TM's normal; NOSE: unremarkable; THROAT: pharynx and tonsils normal. ORAL CAVITY: moist mucous membranes, no lesions, good dentition. NECK: supple, no lymphadenopathy, no thyromegaly, no [...] alert and oriented x 3, normal gait. Labs: No results found for: WBC, HGB, HCT, MCV, PLT No results for input(s): CREATININE, BUN, NA, K, CL, CO2 in the last 72 hours. Assessment/Plan: Sandie was seen today for pre-op exam. Diagnoses and all orders for this visit: Primary osteoarthritis of left shoulder Pre-op evaluation - POCT HEMOGLOBIN A1C Elevated fasting glucose Comments: HbA1c 5.6 Orders: - POCT HEMOGLOBIN A1C 62-year-old woman with past medical history of hypertension, hyperlipidemia, vasomotor syndrome of menopause, Cronin's esophagus, depression/anxiety, insomnia presents for preop evaluation for left shoulder replacement. Chronic conditions are well controlled, she does endorse prior anesthesia side effects of nausea and vomiting. RCRI score = 0. This equates to a 0.4% risk of a major cardiac event; no further cardiac workup is indicated at this time. I see no contraindications to planned procedure. Medication changes prior to surgery: Hold losartan and hydrochlorothiazide the morning of procedure Return for follow up as needed. Osbaldo Dewitt APRN * Thania Pop LPN - 02/20/2023 1115 EDT Capillary Blood Specimen Collection: Laterality: left Site: 3rd digit Patient Response: tolerated the procedure well THANIA POP LPN 02/20/23 12:03 documented in this encounter Plan of Treatment Upcoming Encounters Date Type Department Care Team (Late st Contact Info) Description 11/11/2024 15:30 EST Office Visit [facility] [address] [place], [place] [phone] Osbaldo Dewitt NP [address] [place] [address] documented as of this encounter Procedures Procedure Name Priority Date/Time Associated Diagnosis Comments POCT HEMOGLOBIN A1C Routine 02/20/2023 Pre-op evaluation Elevated fasting glucose documented in this encounter Results * POCT HEMOGLOBIN A1C (02/20/2023) Hemoglobin A1c, POC 5.6 <=5.7 % [facility] POINT OF CARE Blood CAPILLARY BLOOD / Unknown 02/20/2023 us Osbaldo Dewitt NP POINT OF CARE TEST ORDERABLES Final Result [facility] POINT OF CARE documented in this encounter Visit Diagnoses Diagnosis Primary osteoarthritis of left shoulder- Primary Primary localized osteoarthrosis, shoulder region Pre-op evaluation Preoperative examination, unspecified Elevated fasting glucose Impaired fasting glucose documented in this encounter Historical Medications * This list may reflect changes made after this encounter. [id number] -OREG-CAPRYL ORAL Take by mouth. added in this encounter Care Teams Ehs Teacher Relationship Specialty Start Date End Date Osbaldo Dewitt NP [address] [place] [address] PCP - General 09/01/19 documented as of this encounter
--- OUTSIDE RECORDS SUMMARY | 2024-09-30 00:19 | XMS_ITS | Encounter Summary ---
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
--- OUTSIDE RECORDS SUMMARY | 2024-09-30 00:19 | XMS_ITS | Encounter Summary ---
Author Organization [facility] Address [address] [place] [address] Care Team Providers Care Slab Worker Name Role Phone Osbaldo Dewitt NP Primary Care Provider [phone] Reason for Referral * Consult (Routine/Next Available) - Authorization Not Required Specialty Diagnoses / Procedures Referred By [facility] Referred To Contact Diagnoses Atrial fibrillation, unspecified type ([facility]) Osbaldo Dewitt NP [address] [place] [address] Phone: tel: fax: Referral ID Status Reason Start Date Expiration Date Visits Requested Visits Authorized [id number] Authorization Not Required Patient Preference 4 1 1 Question Answer Please choose one of the following condition categories: Other Clinical Question Scheduling Comments (optional ? describe specific scheduling needs if applicable): Abbie Espinoza Reason for Request: Patient preference [facility] ([facility]) Encounter Details Date Type Department Care Team (Late st Contact Info) Description 05/27/2024 Orders Only [facility] Integrative Family [facility] [address] [place] [address] Osbaldo Dewitt, DOOR PANELER [address] [place] [address] Atrial fibrillation, unspecified type (HCC-CMS) (Primary Dx) Social History Tobacco Use Types Packs/Day Years [...] place to sleep or slept in a intermediate (including now)? 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 documented in this encounter Plan of Treatment Upcoming Encounters Date Type Department Care Team (Late st Contact Info) Description 11/11/2024 15:30 EST Office Visit [facility] Family Medicine [place] [phone] Osbaldo Dewitt NP [address] [place], [place] [phone] Scheduled Referrals Name Type Priority Associated Diagnoses Order Schedule AMB CONS/FOLLOW UP CARDIOLOGY Outpatient Referral Routine/Next Available Atrial fibrillation, unspecified type (HCC-CMS) Expected: 06/10/2024 (Approximate), Expires: 05/27/2025 documented as of this encounter Visit Diagnoses Diagnosis Atrial fibrillation, unspecified type (HCC-CMS)- Primary documented in this encounter Care Teams Slab Worker Relationship Specialty Start Date End Date Osbaldo Dewitt NP [address] [place] [address] PCP - General 09/01/19 documented as of this encounter
--- OUTSIDE RECORDS SUMMARY | 2024-09-30 00:19 | XMS_ITS | Encounter Summary ---
Author Organization [facility] Address [address] [place] [address] Care Team Providers Care County Manager Name Role Phone Osbaldo Dewitt NP Primary Care Provider [phone] Unavailable [phone] Reason for Visit * Reason Onset Date Comments Other 02/13/2023 Encounter Details Date Type Department Care Team (Late st Contact Info) Description 02/13/2023 Telephone [facility] [address] [place] [address] Osbaldo Dewitt NP [address] [place] [address] Other Social History Tobacco Use Types Packs/Day Years [...] 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 documented in this encounter Plan of Treatment Upcoming Encounters Date Type Department Care Team (Late st Contact Info) Description 11/11/2024 15:30 EST Office Visit [facility] Family Medicine [address] [phone] Osbaldo Dewitt NP [address] [place] [phone] documented as of this encounter Visit Diagnoses Not on filedocumented in this encounter Care Teams County Manager Relationship Specialty Start Date End Date Osbaldo Dewitt NP [address] [place] [address] PCP - General 09/01/[address] [place] [id number] Registered Dietitian Clinical Nutrition 10/21/23 documented as of this encounter
--- OUTSIDE RECORDS SUMMARY | 2024-09-30 00:19 | XMS_ITS | Encounter Summary ---
Author Organization 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 [address] [phone] Osbaldo Dewitt NP [address] [place] [phone] documented as of this encounter Visit Diagnoses Not on filedocumented in this encounter Discontinued Medications Medication Sig Discontinue Reason Start Date End Da te atenoloL (TENORMIN) 25 mg tablet TAKE 1 TABLET BY MOUTH ONCE DAILY 03/05/2023 05/21/2023 documented as of this encounter Care Teams Wool Sacker Relationship Specialty Start Date End Date Osbaldo Dewitt NP [address] [place] [address] PCP - General 09/01/19 documented as of this encounter
--- OUTSIDE RECORDS SUMMARY | 2024-09-30 00:19 | XMS_ITS | Encounter Summary ---
Author Organization [facility] Address [address] [place] [address] Care Team Providers Care Parole Supervisor Name Role Phone Osbaldo Dewitt NP Primary Care Provider [phone] Reason for Visit * Reason Comments Medications Refill Encounter Details Date Type Department Care Team (Late st Contact Info) Description 05/19/2024 Ref[place] [facility] [place] [address] [place] [address] Osbaldo Dewitt NP [address] [place] [address] Medications Refill Social History Tobacco [...] slept in a retirement (including now)? 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 To front desk team member - please contact patient and schedule PEX. * Telephone Encounter - Laurel Todd RN - 05/19/2024 1553 EDT Medication Requested: Venlafaxine 37.5 mg - 1 tab daily Last OV: 11/11/2023 - pre-op, 09/16/2023 for follow-up Next OV: Visit date not found Last Refill (If required): 01/19/2024 for #90 with 1 refill Pharmacy Of Choice: [facility] pharmacy To PCP - please advise on follow-up needed and refill. documented in this encounter Plan of Treatment Upcoming Encounters Date Type Department Care Team (Late st Contact Info) Description 11/11/2024 15:30 EST Office Visit [facility] Family Medicine [facility] [address] [place], [place] [phone] Osbaldo Dewitt NP [address] [place] [address] documented as of this encounter Visit Diagnoses Diagnosis Anxiety Anxiety state, unspecified Depression, unspecified depression type documented in this encounter Discontinued Medications Medication Sig Discontinue Reason Start Date End Da te venlafaxine (EFFEXOR-XR) 37.5 mg XR capsuleIndications:Anxie ty,Depression, unspecified depression type TAKE ONE CAPSULE BY MOUTH ONCE DAILY 01/19/2024 05/19/2024 documented as of this encounter Care Teams Parole Supervisor Relationship Specialty Start Date End Date Osbaldo Dewitt NP [address] [place] [address] PCP - General 09/01/19 documented as of this encounter
--- OUTSIDE RECORDS SUMMARY | 2024-09-30 00:19 | XMS_ITS | Encounter Summary ---
Author Organization [facility] Address [address] [place] [address] Care Team Providers Care Increment Manager Name Role Phone Osbaldo Dewitt NP Primary Care Provider [phone] Reason for Visit * Reason Comments Medications Refill Encounter Details Date Type Department Care Team (Late st Contact Info) Description 01/17/[address] [facility] [address] [place] [address] Osbaldo Dewitt NP [address] [place] [address] Medications Refill Social History Tobacco [...] place to sleep or slept in a [facility] (including now)? No 10/15/2023 Interpersonal Safety Answer Date Record ed How often does anyone, robbin mcniel family, hit, punch or physically hurt you? 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 Not on tone e documented as of this encounter Ordered Prescriptions Prescription Sig Dispense Quantity Refills Last Filled Start Date End Date venlafaxine (EFFEXOR-XR) 37.5 mg XR capsuleIndications :Anxiety,Depressio n, unspecified depression type TAKE ONE CAPSULE BY MOUTH ONCE DAILY 90 Capsule 1 01/19/2024 documented in this encounter Miscellaneous Notes * Telephone Encounter - Ruthann De Oliveira RN - 01/19/2024 0943 EDT Medication Requested: Venlafaxine 37.5mg Last OV: 11/11/2023 Next OV: Visit date not found Last Refill (If required): 09/18/2023 90 1RF Last Labs (BMP/CMP/LIPID/TSH) : N/A Pharmacy Of Choice: [facility] documented in this encounter Plan of Treatment Upcoming Encounters Date Type Department Care Team (Late st Contact Info) Description 11/11/2024 15:30 EST Office Visit [facility]ative Family Medicine [address] [phone] Osbaldo Dewitt NP [address] [place] [phone] documented as of this encounter Visit Diagnoses Diagnosis Anxiety Anxiety state, unspecified Depression, unspecified depression type documented in this encounter Discontinued Medications Medication Sig Discontinue Reason Start Date End Da te venlafaxine (EFFEXOR-XR) 37.5 mg XR capsuleIndications:Anxie ty,Depression, unspecified depression type Take 1 capsule by mouth every day. 09/18/2023 01/19/2024 documented as of this encounter Care Teams Increment Manager Relationship Specialty Start Date End Date Osbaldo Dewitt NP [address] [place] [phone] PCP - General 09/01/19 documented as of this encounter
--- OUTSIDE RECORDS SUMMARY | 2024-09-30 00:19 | XMS_ITS | Encounter Summary ---
Author Organization [facility] Address [address] [place] [address] Care Team Providers Care Wireless Technician Name Role Phone Osbaldo Dewitt NP Primary Care Provider [phone] Reason for Visit * Reason Comments Medications Refill Encounter Details Date Type Department Care Team (Late st Contact Info) Description 08/16/2024 Refill [facility] [address] [place] [address] Osbaldo Dewitt NP [address] [place] [address] [...] slept in a penitentiary (including now)? 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 Not on tnoe e documented as of this encounter Ordered Prescriptions Prescription Sig Dispense Quantity Refills Last Filled Start Date End Date ELIQUIS 5 mg tablet TAKE ONE TABLET BY MOUTH TWICE A DAY 180 Tablet 3 08/16/2024 atenoloL (TENORMIN) 25 mg tablet TAKE ONE TABLET BY MOUTH ONCE DAILY 90 Tablet 3 08/16/2024 doxycycline (PERIOSTAT) 20 mg tabletIndications: Rosacea TAKE TWO TABLETS BY MOUTH ONCE A DAY 180 Tablet 3 08/16/2024 documented in this encounter Miscellaneous Notes * Telephone Encounter - Ruthann De Oliveira RN - 08/16/2024 1125 EST Medication Requested: Doxycyline, Atenolol, eliquis Last OV: 11/11/2023 Next OV: 09/07/2024 Last Refill (If required): 09/18/2023 Last Labs: 09/16/2023 Pharmacy Of Choice: [facility] documented in this encounter Plan of Treatment Upcoming Encounters Date Type Department Care Team (Late st Contact Info) Description 11/11/2024 15:30 EST Office Visit [facility] [address] Osbaldo Dewitt NP [address] [place] [address] documented as of this encounter Visit Diagnoses Diagnosis Rosacea- Primary documented in this encounter Discontinued Medications Medication Sig Discontinue Reason Start Date End Da te ELIQUIS 5 mg tablet Take 1 Tablet by mouth 2 times daily. 09/18/2023 08/16/2024 doxycycline (PERIOSTAT) 20 mg tabletIndications:Rosace a Take 2 Tablets by mouth daily. 09/18/2023 08/16/2024 atenoloL (TENORMIN) 25 mg tablet Take 1 Tablet by mouth daily. 09/18/2023 08/16/2024 documented as of this encounter Care Teams Wireless Technician Relationship Specialty Start Date End Date Osbaldo Dewitt NP [address] [place] [address] [place] [address] PCP - General 09/01/19 documented as of this encounter
--- OUTSIDE RECORDS SUMMARY | 2024-09-30 00:20 | XMS_ITS | Encounter Summary ---
Author Organization [facility] Address [address] [place] [address] Care Team Providers Care Digital Producer Name Role Phone Osbaldo Dewitt NP Primary Care Provider Reason for Visit * Reason Comments Back Pain lower right bback Encounter Details Date Type Department Care Team (Latest Contact Info) Description 02/20/2021 11:[address] [facility] Integrative Family Medicine [facility] [address] [place] [address] Osbaldo Dewitt NP [address] [place] [address] Essential hypertension (Primary Dx); Right hip pain; Need for shingles vaccine; Pure hypercholesterolemia Social History Tobacco Use Types Packs/Day Years Used Date Smoking Tobacco: Former Cigarettes Smokeless Tobacco: Never Alcohol Use Standard Drinks/Week [...] care, and heating? Not hard at all 12/05/2020 PHQ-2 Answer Date Recorded PHQ-2 SUBTOTAL 0 12/05/2020 Hunger Vital Sign Answer Date Recorded Within the past 12 months, y ou worried that your food would run out before you got the money to buy more. Never true 12/06/19 21 Within the past 12 months, t he food you bought just didn't last and you didn't have money to get more. Never true 12/05/2020 PRAPARE - Transportation Answer Date Re corded In the past 12 months, has l ack of transportation kept you from medical appointments or from getting medications? No 11/2020 In the past 12 months, has l ack of transportation kept you from meetings, work, or from getting things needed for daily living? No 12/05/2020 Interpersonal Safety Answer Date Record ed Physically Hurt Never 05/07/2020 Verbally Threaten Not on file 05/07/2020 Education Answer Date Recorded What is the highest level of school you have completed or the highest degree you have received? 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 No / Unsure 02/20/2021 11:20 EDT documented as of this encounter Last Filed Vital Signs Vital Sign Reading Time Taken Comments Blood Pressure 124/86 02/20/2021 1123 EDT Pulse 64 02/20/2021 1123 EDT Temperature 36.2 ??C (97.2 ??F) 02/20/2021 1123 EDT Respiratory Rate 16 02/20/2021 1123 EDT Oxygen Saturation - - Inhaled Oxygen Concentration - - Weight 107.5 kg (237 lb) 02/20/2021 1123 EDT Height 175.3 cm (5' 9.02) 02/20/2021 1123 EDT Body Mass Index 34.98 02/20/2021 1123 EDT documented in this encounter Progress Notes * Osbaldo Dewitt, HIGH SCHOOL BAND TEACHER - 02/20/2021 1120 EDT Images from the original note were not included. [facility] Primary Care Subjective: Chief Complaint(s): Back Pain (lower right bback) HPI: The history is provided by the patient. No nib finisher was used. Sandie is seen today for follow up left sided chest pain occurring in mid January - see 01/25/21 note for details. Referred for ETT which was negative for ischemia, arrhythmia but showed significant HTN response to exercise. She has been working at lifestyle interventions to improve this in hopes ofavoiding additional medications. Home BPs 128/84 - 141/109 (after work). Trying to improve stress management, decreasing ETOH intake, walking more. Has always watched sodium intake, drinking more water. Sleeping better, neck pain is better. Having shoulder impingement - has been working on work space ergonomics. The 10-year ASCVD risk score ([place] ISAIAH Jr., et al., 2013) is: 4.6% Values used to calculate the score: Age: 60 years Sex: Female Is Non- : No Diabetic: No Tobacco smoker: No Systolic Blood Pressure: 124 mmHg Is BP treated: Yes HDL Cholesterol: 63 mg/dL Total Cholesterol: 225 mg/dL Right hip pain, worse with turning over in bed, bending forward, long drives - symptoms started several months ago, wax and wane with severity. Feels improvement recently, has gotten better with exercise. I have reviewed patient's tobacco history: reports that she has quit smoking. She quit after 2.00 years of use. She has never used smokeless tobacco. I have reviewed current problem list and current medications. Medications: Current Outpatient Medications on File Prior to Visit Medication Sig Dispense Refill ??? atenolol (TENORMIN) 25 mg tablet Take 1 Tab by mouth daily. ??? cetirizine (ZYRTEC) 10 mg tablet Take 10 mg by mouth daily. ??? cholecalciferol, Vitamin D3, 1,000 unit tablet Take 1,000 Units by mouth daily. ??? clobetasoL (TEMOVATE) 0.05 % cream Apply topically once a week prn 30 g 3 ??? clobetasoL (TEMOVATE) 0.05 % ointment Apply topically 2 times daily as needed. ??? doxycycline (PERIOSTAT) 20 mg tablet TAKE TWO TABLETS BY MOUTH EVERY DAY 180 Tab 3 ??? estradioL (ESTRACE) 0.01 % (0.1 mg/gram) vaginal cream Place 0.5 g vaginally twice a week. 1 Tube 3 ??? fluticasone propionate (FLONASE) 50 mcg/actuation nasal spray Instill 2 Sprays into both nostrils daily as needed. ??? glucosamine sulfate 500 mg capsule Take 2 Caps by mouth daily. ??? losartan-hydrochlorothiazide (HYZAAR) 100-25 mg per tablet TAKE ONE TABLET BY MOUTH EVERY DAY 30 Tab 3 ??? omeprazole (PRILOSEC) 20 mg capsule TAKE ONE CAPSULE BY MOUTH AT BEDTIME 90 Cap 3 ??? venlafaxine (EFFEXOR-XR) 37.5 mg XR capsule TAKE ONE CAPSULE BY MOUTH EVERY DAY 90 Cap 3 No current facility-administered medications on file prior to visit. ROS: Review of Systems Cardiovascular: Negative for chest pain, palpitations and leg swelling. Musculoskeletal: Positive for arthralgias and back pain. Objective: Examination: Vitals: BP 124/86 Pulse 64 Temp 36.2 ??C (97.2 ??F) Resp 16 Ht 175.3 cm (69.02) Wt (!) 107.5 kg (237 lb) BMI 34.98 kg/m?? Body mass index is 34.98 kg/m??. Physical Exam Constitutional: Appearance: She is well-developed. HENT: Head: Normocephalic and atraumatic. Eyes: Extraocular Movements: Extraocular movements intact. Pulmonary: Effort: Pulmonary effort is normal. Abdominal: Tenderness: There is no right CVA tenderness or left CVA tenderness. Musculoskeletal: Normal range of motion. General: No tenderness. Skin: General: Skin is warm and dry. Neurological: Mental Status: She is alert and oriented to person, place, and time. Psychiatric: Behavior: Behavior normal. Thought Content: Thought content normal. Judgment: Judgment normal. Data reviewed with patient (past results): notes from last encounter, lab results, stress testing Assessment & Plan: Sandie was seen today for back pain. Diagnoses and all orders for this visit: Essential hypertension Comments: Within goal today and with home checks. Working on lifestyle inteventions to reduce BP and lose weight. Will hold on medication changes at this time. Right hip pain Comments: Suspect SI joint vs. hip strain. Symptoms improving with exercise. Follow up if sxs worsen again, consider referral to PT. Need for shingles vaccine - SHINGRIX (ZOSTER VACCINE, RECOMBINANT) IM Pure hypercholesterolemia Comments: ASCVD risk 4.6%. Continue lifestyle interventions. I spent a total of 30 minutes on the date of this encounter meeting with the patient and reviewing documentation/coordinating care as described in the above note. No procedures were performed at the time of the visit. All other conditions stable unless otherwise specified. Patient advised to follow up for any concerns or change in status. Return in about 6 months (around 08/23/2021) for hypertension, hyperlipidemia. Osbaldo Dewitt APRN documented in this encounter Plan of Treatment Upcoming Encounters Date Type Department Care Team (Late st Contact Info) Description 11/11/2024 15:30 EST Office Visit [facility] Integrative Family Medicine [address] [phone] Osbaldo Dewitt NP [address] [place], [place] [address] documented as of this encounter Visit Diagnoses Diagnosis Essential hypertension- Primary Unspecified essential hypertension Right hip pain Pain in joint, pelvic region and thigh Need for shingles vaccine Need for prophylactic vaccination and inoculation against other viral diseases Pure hypercholesterolemia documented in this encounter Discontinued Medications Medication Sig Discontinue Reason Start Date End Da te fexofenadine (LAKESHA ALLERGY) 180 mg tablet Take 1 Tab by mouth daily. Therapy completed 02/20/2021 documented as of this encounter Historical Medications * This list may reflect changes made after this encounter. clobetasoL (TEMOVATE) 0.05 % ointment Apply topically 2 times daily as needed. 2 added in this encounter Orders Immunization/Injection Count Last Ordered Date First Ordered Date SHINGRIX (ZOSTER VACCINE, RECOMBINANT) IM 1 02/20/2021 documented in this encounter Care Teams Digital Producer Relationship Specialty Start Date End Date Osbaldo Dewitt NP [address] [place] [address] PCP - General 09/01/19 documented as of this encounter
--- OUTSIDE RECORDS SUMMARY | 2024-09-30 00:20 | XMS_ITS | Encounter Summary ---
Author Organization [facility] Address [address] [place] [address] Care Team Providers Care Glassware Maker Demonstrator Name Role Phone Osbaldo Dewitt NP Primary Care Provider [phone] Reason for Visit * Reason Onset Date Comments Medications Refill 01/29/2022 Encounter Details Date Type Department Care Team (Late st Contact Info) Description 01/29/2022 Refill [facility] Integrative Family Medicine [facility] [address] [place], [place] [phone] Grace Eubanks RN Medications Refill Social History Tobacco Use Types [...] asked 12/05/2020 Overall Financial Resource Strain (CARDIA) Bone r Date Recorded How hard is it [...] 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 30 g 1 01/29/2022 3 documented in this encounter Miscellaneous Notes * Telephone Encounter - Grace Eubanks RN - 01/29/2022 1350 EDT Refill clobetasol cream to [facility] - 08/13/21 NOV - none Rx(s) escribed to pharmacy. documented in this encounter Plan of Treatment Upcoming Encounters Date Type Department Care Team (Late st Contact Info) Description 11/11/2024 15:30 EST Office Visit [address] [phone] Osbalod Dewitt NP [address] [place] [address] documented as of this encounter Visit Diagnoses Not on filedocumented in this encounter Discontinued Medications Medication Sig Discontinue Reason Start Date End Da te clobetasoL (TEMOVATE) 0.05 % ointment Apply topically 2 times daily as needed. Reorder 01/29/2022 documented as of this encounter Care Teams Glassware Maker Demonstrator Relationship Specialty Start Date End Date Osbaldo Dewitt NP [address] [place] [address] PCP - General 09/01/19 documented as of this encounter
--- OUTSIDE RECORDS SUMMARY | 2024-09-30 00:20 | XMS_ITS | Encounter Summary ---
Author Organization [facility] Address [address] [place] [address] Care Team Providers Care Ham Curer Name Role Phone Osbalod Dewitt NP Primary Care Provider [phone] Reason for Visit * Reason Comments Other Encounter Details Date Type Department Care Team (Late st Contact Info) Description 01/24/[address] 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 documented in this encounter Plan of Treatment Upcoming Encounters Date Type Department Care Team (Late st Contact Info) Description 11/11/2024 15:30 EST Office Visit [facility] Integrative Family Medicine [facility] [address] [place], [place] [phone] Osbaldo Dewitt NP [address] [place] [address] documented as of this encounter Visit Diagnoses Diagnosis Anxiety Anxiety state, unspecified Depression, unspecified depression type documented in this encounter Discontinued Medications Medication Sig Discontinue Reason Start Date End Da te venlafaxine (EFFEXOR-XR) 37.5 mg XR capsuleIndications:Anxie ty,Depression, unspecified depression type TAKE ONE CAPSULE BY MOUTH EVERY DAY 01/15/2021 01/24/2022 documented as of this encounter Care Teams Ham Curer Relationship Specialty Start Date End Date Osbaldo Dewitt NP [address] [place] [address] PCP - General 09/01/19 documented as of this encounter
--- OUTSIDE RECORDS SUMMARY | 2024-09-30 00:20 | XMS_ITS | Encounter Summary ---
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 Patient reports the last episode resolved itself last evening and she was able to safely drive herself home, eat, and get a good nights rest. Woke up this morning feeling ok- the more she started to move around, the more the spinning came back. She has not felt nauseous today, but when she gets up to move around, she gets the sensation that the room is spinning again. Her symptoms resolve when she is stationary and not moving her head. Reports that she went swimming yesterday- has had a hx of swimmers ear- reports that she has hx of impacted cerumen. Checked this morning and does not feel as though her ears are impacted or she has water in her ears at this time. Patient denies having any SOB/dizziness/headaches. Patient does monitor her BP at home but did not get a reading with these recent symptoms. Patient was offered an in office visit tomorrow and was also given the option of going to today.Patient advised to seek care XIAO to resolve symptoms as the dizziness could cause potential falls/difficulty driving. Patient reports she will be seen at today for intervention. documented in this encounter Plan of Treatment Upcoming Encounters Date Type Department Care Team (Late st Contact Info) Description 11/11/2024 15:30 EST Office Visit [facility] Family Medicine [address] [address] Osbaldo Dewitt NP [address] [place] [address] documented as of this encounter Visit Diagnoses Not on filedocumented in this encounter Care Teams Liquefaction And Regasification Helper Relationship Specialty Start Date End Date Osbaldo Dewitt NP [address] [place] [id number] PCP - General 09/01/19 documented as of this encounter
--- OUTSIDE RECORDS SUMMARY | 2024-09-30 00:20 | XMS_ITS | Encounter Summary ---
Author Organization [facility] Address [address] [place] [address] Care Team Providers Care Retirement Specialist Name Role Phone Osbaldo Dewitt NP Primary Care Provider [phone] Unavailable [phone] Reason for Visit * Reason Comments Medications Refill Encounter Details Date Type Department Care Team (Late st Contact Info) Description 10/24/2022 [facility]ill [facility] [address] [place], [place] [phone] Osbaldo Dewitt NP [address] [place] [address] Medications Refill Social History Tobacco [...] 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 Not on tone e documented as of this encounter Ordered Prescriptions Prescription Sig Dispense Quantity Refills Last Filled Start Date End Date omeprazole (PRILOSEC) 20 mg capsuleIndications :Gastroesophageal reflux disease TAKE ONE CAPSULE BY MOUTH AT BEDTIME 90 Capsule 1 10/25/2022 3 documented in this encounter Plan of Treatment Upcoming Encounters Date Type Department Care Team (Late st Contact Info) Description 11/11/2024 15:30 EST Office Visit [facility] [place] [address] Osbaldo Dewitt NP [address] [place], [place] [phone] documented as of this encounter Visit Diagnoses Diagnosis Gastroesophageal reflux disease Esophageal reflux documented in this encounter Discontinued Medications Medication Sig Discontinue Reason Start Date End Da te omeprazole (PRILOSEC) 20 mg capsuleIndications:Gastr oesophageal reflux disease TAKE ONE CAPSULE BY MOUTH AT BEDTIME 10/15/2021 10/25/2022 documented as of this encounter Care Teams Retirement Specialist Relationship Specialty Start Date End Date Osbaldo Dewitt NP [address] [place] [address] PCP - General 09/01/[address] [place] [address] Registered Dietitian Clinical Nutrition 10/21/23 documented as of this encounter
--- OUTSIDE RECORDS SUMMARY | 2024-09-30 00:20 | XMS_ITS | Encounter Summary ---
Author Organization [facility] Address [address] [place] [address] Care Team Providers Care Garbage Pick Up Worker Name Role Phone Osbaldo Dewitt NP Primary Care Provider [phone] Reason for Visit * Reason Onset Date Comments Labs Only 11/05/2022 Encounter Details Date Type Department Care Team (Late st Contact Info) Description 11/05/2022 Telephone [facility] [address] [place] [address] Osbaldo Dewitt NP [address] [place] [address] Labs Only Social History Tobacco Use Types Packs/Day Years [...] 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 * Telephone Encounter - Kristen Parker - 11/05/2022 1302 EST Pt called regarding her upcoming appointment with [facility], said she got lab work done on 10/10 and someonelet her know that the results were in her chart. Pt would like a call back from a nurse to verify if the lab results are indeed in her chart, or sheshould have the blood work done again. documented in this encounter Plan of Treatment Upcoming Encounters Date Type Department Care Team (Late st Contact Info) Description 11/11/2024 15:30 EST Office Visit [facility] Integrative Family Medicine [address] [address] Osbaldo Dewitt NP [address] [place] [address] documented as of this encounter Visit Diagnoses Not on filedocumented in this encounter Care Teams Garbage Pick Up Worker Relationship Specialty Start Date End Date Osbaldo Dewitt NP [address] [place] [address] PCP - General 09/01/19 documented as of this encounter
--- OUTSIDE RECORDS SUMMARY | 2024-09-30 00:20 | XMS_ITS | Encounter Summary ---
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 Pt notified via [email or web address] that she needs to get labs done. documented in this encounter Plan of Treatment Upcoming Encounters Date Type Department Care Team (Late st Contact Info) Description 11/11/2024 15:30 EST Office Visit [facility] Family [address] [phone] Osbaldo Dewitt NP [address] [place] [phone] documented as of this encounter Visit Diagnoses Not on filedocumented in this encounter Discontinued Medications Medication Sig Discontinue Reason Start Date End Da te hydroCHLOROthiazide (HYDRODIURIL) 25 mg tablet Take 1 Tablet by mouth daily. 11/20/2021 07/24/2022 documented as of this encounter Care Teams Consumer Affairs Specialist Relationship Specialty Start Date End Date Osbaldo Dewitt NP [address] [place] [phone] PCP - General 09/01/19 documented as of this encounter
--- OUTSIDE RECORDS SUMMARY | 2024-09-30 00:20 | XMS_ITS | Encounter Summary ---
Author Organization [facility] Address [address] [place] [address] Care Team Providers Care Ross Carrier Driver Name Role Phone Osbaldo Dewitt NETWORK TECHNICIAN Primary Care Provider [phone] Reason for Visit * Reason Comments Hypertension Hyperlipidemia Encounter Details Date Type Department Care Team (Latest Contact Info) Description 08/13/2021 8:40 EST Office Visit [facility] [address] [place] [address] Osbaldo Dewitt NP [address] [place] [address] Primary hypertension (Primary Dx); Need for shingles vaccine; Need for immunization against influenza; Seasonal allergic rhinitis, unspecified trigger; Postmenopause atrophic vaginitis; 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 No / Unsure 08/13/2021 8:19 EST documented as of this encounter Last Filed Vital Signs Vital Sign Reading Time Taken Comments Blood Pressure 128/84 08/13/2021 0821 EST Pulse 72 08/13/2021820 EST Temperature 36.7 ??C (98 ??F) 08/13/2021820 EST Respiratory Rate 16 08/13/2021820 EST Oxygen Saturation - - Inhaled Oxygen Concentration - - Weight 109.3 kg (241 lb) 08/13/2021820 EST Height 175.3 cm (5' 9.02) 08/13/2021820 EST Body Mass Index 35.57 08/13/2021820 EST documented in this encounter Progress Notes * Osbaldo Dewitt, ELECTROCHEMIST - 08/13/2021839 EST Images from the original note were not included. [facility] Primary Care Subjective: Chief Complaint(s): Hypertension and Hyperlipidemia HPI: The history is provided by the patient. No language therapist was used. Hypertension Managed with??hydrochlorothiazide/losarten 25 mg/100 mg QD and atenolol 25 mg QD. Medication adherence is??good.??Denies chest pain, shortness of breath, new onset edema. ?? GI Hx of Cronin esophagus, last EGD 10/04/[address] Romero showed chronic inflammation but no metaplasia or dysplasia. She has had 3 normal consecutive endoscopies, he recommends repeat only if symptomatic, pt prefers every 5 years. Managed on Prilosec 20mg QD. Rare breakthrough sxs. Muscoloskeletal ??Shoulders are bothering her again. Impacting her sleep. Will be returning to her ergonomic work station soon. 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 Getting exercise with new puppy. 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 Missed a dose last week, felt heart racing and anxiety that day. Allergies Uses flonase and claritin daily - stops flonase in the fall. Sxs are well controlled. I have reviewed patient's tobacco history: reports [...] ROS: Review of Systems Constitutional: Negative for unexpected weight change. Respiratory: Negative for cough, chest tightness and shortness of breath. Cardiovascular: Negative for chest pain, palpitations and leg swelling. Musculoskeletal: Positive for arthralgias. Neurological: Negative for dizziness and light-headedness. Objective: Examination: Vitals: BP 128/84 Pulse 72 Temp 36.7 ??C (98 ??F) Resp 16 Ht 175.3 cm (69.02) Wt (!) 109.3 kg (241 lb) BMI 35.57 kg/m?? Body mass index is 35.57 kg/m??. Physical Exam Constitutional: Appearance: She is well-developed. She is obese. She is not diaphoretic. HENT: Head: Normocephalic and atraumatic. Eyes: Pupils: Pupils are equal, round, and reactive to light. Neck: Thyroid: No thyromegaly. Vascular: No carotid bruit. Cardiovascular: Rate and Rhythm: Normal rate and regular rhythm. Heart sounds: Normal heart sounds. No murmur heard. Pulmonary: Effort: Pulmonary effort is normal. No respiratory distress. Breath sounds: Normal breath sounds. Musculoskeletal: General: Normal range of motion. Cervical back: Normal range of motion and neck supple. Right lower leg: No edema. Left lower leg: No edema. Skin: General: Skin is warm and dry. Neurological: Mental Status: She is alert and oriented to person, place, and time. Psychiatric: Behavior: Behavior normal. Thought Content: Thought content normal. Judgment: Judgment normal. Data reviewed with patient (past results): health maintenance, notes from last encounter, lab results Assessment & Plan: Sandie was seen today for hypertension and hyperlipidemia. Diagnoses and all orders for this visit: Primary hypertension Comments: In good control. Continue current medications. Check routine labs prior to next visit. Orders: - LIPID PROFILE (INCLUDES CHOLESTEROL, TRIGLYCERIDES, HDL, LDL); Future - COMPREHENSIVE METABOLIC PANEL (CMP); Future Need for shingles vaccine - SHINGRIX (ZOSTER VACCINE, RECOMBINANT) IM Need for immunization against influenza - INFLUENZA VACCINE QUAD PF 0.5 ML IM (6 MOS+) Seasonal allergic rhinitis, unspecified trigger Comments: Stable continue Flonase as needed and Claritin daily. Postmenopause atrophic vaginitis Comments: Continue Estrace. Cronin's esophagus without dysplasia Comments: Stable. Continue daily PPI. Repeat EGD due 2023. Orders: - MAGNESIUM; Future - VITAMIN B12; Future Anxiety Comments: Stable. Patient does not wish to make dose adjustments at this time. Continue Effexor. Encounter for hepatitis C screening test for low risk patient - HEPATITIS C AB W REFLEX TO HCV RNA BY PCR; Future Pure hypercholesterolemia - LIPID PROFILE (INCLUDES CHOLESTEROL, TRIGLYCERIDES, HDL, LDL); Future Patient advised to follow up for any concerns or change in status. Return in about 4 months (around 12/11/2021) for hypertension, hyperlipidemia, Barretts. Osbaldo Dewitt APRN documented in this encounter Plan of Treatment Upcoming Encounters Date Type Department Care Team (Genoveva st Contact Info) Description 11/11/2024 15:30 [place] [address] Osbaldo Dewitt NP [address], [place] [phone] documented as of this encounter Visit Diagnoses Diagnosis Primary hypertension- Primary Unspecified essential hypertension Need for shingles vaccine Need for prophylactic vaccination and inoculation against other viral diseases Need for immunization against influenza Need for prophylactic vaccination and inoculation against influenza Seasonal allergic rhinitis, unspecified trigger Postmenopause atrophic vaginitis Postmenopausal atrophic vaginitis Cronin's esophagus without dysplasia Cronin's esophagus Anxiety Anxiety state, unspecified Encounter for hepatitis C screening test for low risk patient Pure hypercholesterolemia documented in this encounter Orders Immunization/Injection Count Last Ordered Date First Ordered Date INFLUENZA VACCINE QUAD PF 0. 5 ML IM (6 MOS+) 1 08/13/2021 SHINGRIX (ZOSTER VACCINE, RECOMBINANT) IM 1 08/13/2021 documented in this encounter Care Teams Ross Carrier Driver Relationship Specialty Start Date End Date Osbaldo Dewitt NP [address], [place] [phone] PCP - General 09/01/19 documented as of this encounter
--- OUTSIDE RECORDS SUMMARY | 2024-09-30 00:20 | XMS_ITS | Encounter Summary ---
Author Organization [facility] Address [address] [place] [address] Care Team Providers Care Cork Molder Name Role Phone Osbaldo Dewitt NP Primary Care Provider [phone] Reason for Referral * PT/OT/ST (Routine) - Closed Specialty Diagnoses / Procedures [facility] Referred To Contact Diagnoses BPPV (benign paroxysmal positional vertigo), right Nava Garnica PA-C Phone: tel: fax: [facility] [address] [place] [address] Phone: tel: fax: Referral ID Status Reason Start Date Expiration Date V isits Requested Visits Authorized [id number] Closed Specialty Services Required 05/07/2021 1 1 Question Answer Reason for Request: Suspect R sided BPPV, please eval and treat. 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 [facility] Patient Instructions Benign Paroxysmal Positional Vertigo (BPPV): Care Instructions Your Care Instructions Benign paroxysmal positional vertigo, also called BPPV, is an inner ear problem. It causes a spinning or whirling sensation when you move your head. This sensation is called vertigo. The vertigo usually lasts for less than a minute. People often have vertigo spells for a few days or weeks. Then the vertigo goes away. But it may come back again. The vertigo may be mild, or it may be bad enough to cause unsteadiness, nausea, and vomiting. When you move, your inner ear sends messages to the brain. This helps you keep your balance. Vertigo can happen when debris builds up in the inner ear. The buildup can cause the inner ear to send thewrong message to the brain. Your doctor may move you in different positions to help your vertigo get better faster. This is called the Bettie maneuver. Your doctor may also prescribe medicines or exercises to help with your symptoms. Follow-up care is a antonio part of your treatment and safety. Be sure to make and go to all appointments, and call your doctor if you are having problems. It's also a good idea to know your test resultsand keep a list of the medicines you take. How can you care for yourself at home? ?? If your doctor suggests that you do Kaba-Daroff exercises: ? Sit on the edge of a bed or sofa. Quickly lie down on the side that causes the worst vertigo. Lieon your side with your ear down. ? Stay in this position for at least 30 seconds or until the vertigo goes away. ? Sit up. If this causes vertigo, wait for it to stop. ? Repeat the procedure on the other side. ? Repeat this 10 times. Do these exercises 2 times a day until the vertigo is gone. When should you call for help? Call 911 anytime you think you may need emergency care. For example, call if: ? You have symptoms of a stroke. These may include: ? Sudden numbness, tingling, weakness, or loss of movement in your face, arm, or leg, especially ononly one side of your body. ? Sudden vision changes. ? Sudden trouble speaking. ? Sudden confusion or trouble understanding simple statements. ? Sudden problems with walking or balance. ? A sudden, severe headache that is different from past headaches. Call your doctor now or seek immediate medical care if: ? You have new or worse nausea and vomiting. ? You have new symptoms such as hearing loss or roaring in your ears. Watch closely for changes in your health, and be sure to contact your doctor if: ? You are not getting better as expected. ? Your vertigo gets worse. Where can you learn more? Go to https://www.MangoPlate.net/[facility] or log into your [employer] account at [email or web address] Enter P372 in the search box to learn more about Benign Paroxysmal Positional Vertigo (BPPV): CareInstructions. Current as of: January 19, 2020?Content Version: 12.6 ?? [employer]. Care instructions adapted under license by [facility]. If you have questions about a medical condition or this instruction, always ask your healthcare professional. [employer] disclaims any warranty or liability for your use of this information. documented in this encounter Ordered Prescriptions Prescription Sig Dispense Quantity Refills Last Filled Start Date End Date meclizine (ANTIVERT) 25 mg tabletIndications: BPPV (benign paroxysmal positional vertigo), right Take 1 Tablet by mouth 3 times daily as needed for up to 5 days for Dizziness or Nausea. 15 Tablet 05/07/2021 documented in this encounter Progress Notes * Honey Lopez RN - 05/07/2021 1200 EDT CC/HPI: Having dizziness and nausea since yesterday. Having balance issues. Covid Screening: In the last 72 hours, has the patient had: New or unusual cough, shortness of breath, new nasal congestion, sore throat, fever, chills, body aches, or new loss of taste or smell without a reasonable alternative diagnosis*? (If yes, assign patient to ARC schedule) no In the past 14 days, has the patient had a confirmed close Covid exposure (<6ft for > 15mins in 24hr period)? no In the past 14 days, has the patient returned from international travel? no Is the patient fully Covid vaccinated? (If close exposure or international travel but fully vaccinated, remains NRC. If close exposure or international travel and unvaccinated, assign to ARC) yes *may be determined by RN or in discussion with available provider (COMMISSIONING MANAGER's and CCA's can defer to Charge Nurse to complete triage when appropriate) PCP: Osbaldo Dewitt * Nava Garnica PA-C - 05/07/2021 1200 EDT [facility] Chief Complaint(s): Chief Complaint Patient presents with ??? Dizziness ??? Nausea Assessment & Plan: 1. BPPV (benign paroxysmal positional vertigo), right POCT URINE DIPSTICK, VISUAL READ meclizine (ANTIVERT) 25 mg tablet AMB CONS/FOLLOW UP PHYSICAL THERAPY 2. Asymptomatic microscopic hematuria New Prescriptions MECLIZINE (ANTIVERT) 25 MG TABLET Take 1 Tablet by mouth 3 times daily as needed for up to 5 days for Dizziness or Nausea. Patient is neurologically intact, symptoms are consistent with BPPV. Discussed etiology and treatment. I have prescribed a course of meclizine, sedation warnings reviewed. She was given a handout with the Bettie maneuver as we are unable to practice that here due to a narrow and tall exam table. I have also placed a referral for physical therapy bruce. Advised to go to the emergency room with acuteneurological changes such as headache, severe or persistent dizziness, weakness, chest pain or otherwise feeling worse. There was an incidental finding of trace hematuria on her UA, she is a former smoker and so I have recommended that she have this rechecked in a couple of weeks. If the hematuria is persistent she will require further work-up. HPI: 60-year-old woman presents with complaints of episodic dizziness, nausea and feeling off balance that began yesterday. She was backing up camp and noticed she became very dizzy and felt off balance when turning her head quickly. She developed some nausea and dry heaved at on the drive home. She hashad a Ramy fundoplication so she reports she cannot vomit. She rested in the evening and woke up feeling better today. Symptoms persist but are much less severe. She still feels a bit dizzy at baseline but is much worse if she turns her head quickly. Left ear feels a bit plugged, initially felt it was related to wax but after cleaning her ears she thought otherwise. She was swimming a couple times over the weekend. She denies headache or head injury, no weakness. She is not having any chest pain or shortness of breath. She has been urinating more frequently but denies dysuria. No abdominal pain. ROS: Review of Systems Constitutional: Negative for chills and fever. HENT: Negative for ear pain and hearing loss. Eyes: Negative for blurred vision. Respiratory: Negative for cough and shortness of breath. Cardiovascular: Negative for chest pain and palpitations. Genitourinary: Negative for dysuria, flank pain, hematuria and urgency. Musculoskeletal: Negative for falls and neck pain. Neurological: Positive for dizziness. Negative for tingling, sensory change, focal weakness and headaches. Objective: Vitals and nursing notes reviewed Examination: BP 140/80 Pulse 59 Temp 36.7 ??C (98.1 ??F) Resp 18 SpO2 99% Physical Exam Constitutional: General: She is not in acute distress. Appearance: She is obese. She is not ill-appearing. Comments: Pleasant and cooperative HENT: Head: Normocephalic and atraumatic. Right Ear: Tympanic membrane normal. Left Ear: Tympanic membrane normal. Ears: Comments: Exostosis noted in ear canals, L>R Mouth/Throat: Mouth: Mucous membranes are moist. Pharynx: Oropharynx is clear. Comments: Soft palate rises symmetrically, tongue protrudes midline without fasciculations Eyes: Conjunctiva/sclera: Conjunctivae normal. Pupils: Pupils are equal, round, and reactive to light. Comments: Horizontal nystagmus with R gaze Cardiovascular: Rate and Rhythm: Normal rate and regular rhythm. Heart sounds: Normal heart sounds. Pulmonary: Effort: Pulmonary effort is normal. Breath sounds: No wheezing, rhonchi or rales. Musculoskeletal: General: Normal range of motion. Cervical back: Normal range of motion and neck supple. Comments: Freely moving Lymphadenopathy: Cervical: No cervical adenopathy. Skin: General: Skin is warm and dry. Neurological: General: No focal deficit present. Mental Status: She is alert. Cranial Nerves: No cranial nerve deficit. Sensory: No sensory deficit. Motor: No weakness. Coordination: Coordination normal. Gait: Gait normal. Deep Tendon Reflexes: Reflexes normal. Comments: Symptoms exacerbated with quick head turns Data reviewed with patient (current and past results): most recent labs reviewed: UA is negative This note was prepared using voice recognition software and the EMR. There may be inadvertent errors and omissions. documented in this encounter Plan of Treatment Upcoming Encounters Date Type Department Care Team (Late st Contact Info) Description 11/11/2024 15:30 EST Office Visit [facility] [address] [phone] Osbaldo Dewitt, SG [address] [place] [address] Scheduled Referrals Name Type Priority Associated Diagnoses Orde r Schedule AMB CONS/FOLLOW UP PHYSICAL THERAPY Outpatient Referral Routine BPPV (benign paroxysmal positional vertigo), right Ordered: 05/07/2021 documented as of this encounter Procedures Procedure Name Priority Date/Time Associated Diagnosis Comments POCT URINE DIPSTICK, VISUAL READ Routine 05/07/2021 BPPV (benign paroxysmal positional vertigo), right documented in this encounter Results * POCT URINE DIPSTICK, VISUAL READ (05/07/2021) Color, UA Yellow [facility] POIN T [facility] C[facility] Clarity, UA Clear [facility] PO INT [facility] CARE Glucose, UA Negative . mg/dL [facility] Bilirubin, UA Negative . [facility]INT [facility] Ketones, UA Negative . mg/dL [facility] Spec Grav, UA 1.020 . [facility]INT [facility] Blood, UA Trace-lysed . [facility] pH, UA 7.5 4.6 - 8.0 [facility] T [facility] Protein, UA Negative . mg/dL [facility] PO INT [facility] CARE Urobilinogen, UA 0.2 0.2 - 1.0 E.U./dL [facility] POINT [facility]ARE Nitrite, UA Negative . [facility] INT [facility] Leuk Esterase Negative . [facility] POINT [facility]ARE Comment [facility] PO[facility] T [facility] Urine URINE SPECIMEN COLLECTION, CLEAN CATCH / Unknown 05/07/2021 Nava Garnica PA-C POINT OF CARE TEST ORDERABLES Final Result [facility] documented in this encounter Visit Diagnoses Diagnosis BPPV (benign paroxysmal positional vertigo), right- Primary Asymptomatic microscopic hematuria documented in this encounter Discontinued Medications Medication Sig Discontinue Reason Start Date End Da te clobetasoL (TEMOVATE) 0.05 % creamIndications:Lichen sclerosus et atrophicus Apply topically once a week prn Error 11/15/2020 05/07/2021 documented as of this encounter Care Teams Cork Molder Relationship Specialty Start Date End Date Osbaldo Dewitt NP [address] [place] [id number] PCP - General 09/01/19 documented as of this encounter
--- OUTSIDE RECORDS SUMMARY | 2024-09-30 00:20 | XMS_ITS | Encounter Summary ---
Author Organization [facility] Address [address] [place] [address] Care Team Providers Care Warp Changer Name Role Phone Osbaldo Dewitt NP Primary Care Provider [phone] Reason for Visit * Reason Onset Date Comments Medication Problem 11/19/2021 Encounter Details Date Type Department Care Team (Late st Contact Info) Description 11/19/2021 Telephone [facility] - [facility] Integrative Family Medicine [facility] [address] [place] [address] Osbaldo Dewitt NP [address] [place] [address] Medication Problem Social History Tobacco Use Types Packs/Day Years [...] 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 90 Tablet 1 11/20/2021 05/27/2022 hydroCHLOROthiazid e (HYDRODIURIL) 25 mg tablet Take 1 Tablet by mouth daily. 90 Tablet 1 11/20/2021 07/24/2022 documented in this encounter Miscellaneous Notes * Telephone Encounter - Grace Eubanks RN - 11/20/2021 1150 EST Rx switched to separate tabs of losartan 100mg and HCTZ 25mg. * Telephone Encounter - StephenaspenDinh - 11/19/2021 1333 EST Esperanza does not have the combination losartan hydrochlorothiazide and will need a different prescription sent in. documented in this encounter Plan of Treatment Upcoming Encounters Date Type Department Care Team (Late st Contact Info) Description 11/11/2024 15:30 EST Office Visit [address] [address] Osbaldo Dewitt NP [address] [place] [address] documented as of this encounter Visit Diagnoses Not on filedocumented in this encounter Discontinued Medications Medication Sig Discontinue Reason Start Date End Da te losartan-hydrochlorothiaz juanita (HYZAAR) 100-25 mg per tabletIndications:Essenti al hypertension TAKE ONE TABLET BY MOUTH EVERY DAY 04/16/2021 11/20/2021 losartan (COZAAR) 100 mg tablet Take 100 mg by mouth daily. Reorder 11/20/2021 hydroCHLOROthiazide (HYDRODIURIL) 25 mg tablet Take 25 mg by mouth daily. Reorder 11/20/2021 documented as of this encounter Historical Medications * This list may reflect changes made after this encounter. hydroCHLOROthiazi de (HYDRODIURIL) 25 mg tablet Take 25 mg by mouth daily. 11/20/2021 losartan (COZAAR) 100 mg tablet Take 100 mg by mouth daily. 11/20/2021 added in this encounter Care Teams Warp Changer Relationship Specialty Start Date End Date Osbaldo Dewitt NP [address] [place] [address] PCP - General 09/01/19 documented as of this encounter
--- OUTSIDE RECORDS SUMMARY | 2024-09-30 00:20 | XMS_ITS | Encounter Summary ---
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 documented in this encounter Plan of Treatment Upcoming Encounters Date Type Department Care Team (Late st Contact Info) Description 11/11/2024 15:30 EST Office Visit [facility] [address] [place], [place] [id number] Osbaldo Dewitt NP [address] [place] [address] documented as of this encounter Visit Diagnoses Diagnosis Gastroesophageal reflux disease- Primary Esophageal reflux documented in this encounter Discontinued Medications Medication Sig Discontinue Reason Start Date End Da te omeprazole (PRILOSEC) 20 mg capsuleIndications:Gastr oesophageal reflux disease TAKE ONE CAPSULE BY MOUTH AT BEDTIME 10/16/2020 10/15/2021 documented as of this encounter Care Teams Director Life Sciences Relationship Specialty Start Date End Date Osbaldo Dewitt NP [address] [place] [address] PCP - General 09/01/19 documented as of this encounter
--- OUTSIDE RECORDS SUMMARY | 2024-09-30 00:20 | XMS_ITS | Encounter Summary ---
Author Organization [facility] Address [address] [place] [address] Care Team Providers Care Nurse Infection Control Name Role Phone sObaldo Dewitt NP Primary Care Provider [phone] Reason for Referral * Radiology Services (Routine/Next Available) - Authorization Not Required Specialty Diagnoses / Procedures Referred By Chance le Referred To Contact Diagnoses Encounter for screening mammogram for malignant neoplasm of breast Procedures MA BREAST SCREENING JULIAN BILATERAL Osbaldo Dewitt NP Phone: tel: fax: [facility] Referral ID Status Reason Start Date Expiration Date Visits Requested Visits Authorized [id number] Authorization Not Required 11/22/2021 1 1 Reason for Visit * Radiology Services (Routine/Next Available) - Authorization Not Required Specialty Diagnoses / Procedures Referred By Chance le Referred To Contact Diagnoses Encounter for screening mammogram for malignant neoplasm of breast Procedures MA BREAST SCREENING JULIAN BILATERAL Osbaldo Dewitt NP Phone: tel: fax: [facility] Referral ID Status Reason Start Date Expiration Date Visits Requested Visits Authorized [id number] Authorization Not Required 11/22/2021 1 1 Encounter Details Date Type Department Care Team (Latest Contact Info) Description 03/01/2022 7:48 EDT - 03/01/2022 23:59 EDT Hospital Encounter [facility] - [facility] Mammography [address] [place] [address] Encounter for screening mammogram for malignant neoplasm of breast Discharge Disposition: Home or Self Care Social History Tobacco Use Types Packs/Day Years [...] 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 fluticasone propionate (FLONASE) 50 mcg/actuation nasal spray Instill 2 Sprays into both nostrils daily as needed. 02/02/2015 atenoloL (TENORMIN) 25 mg tablet TAKE ONE TABLET BY MOUTH EVERY DAY 90 Tablet 3 08/22/2021 2 cetirizine (ZYRTEC) 10 mg tablet Take 1 Tablet by mouth daily. 4 clobetasoL (TEMOVATE) 0.05 % ointment Apply topically 2 times daily as needed for Other. 30 g 1 01/29/2022 3 doxycycline (PERIOSTAT) 20 mg tabletIndications :Rosacea TAKE TWO TABLETS BY MOUTH EVERY DAY 180 Tablet 3 12/24/2021 3 estradioL (ESTRACE) 0.01 % (0.1 mg/gram) vaginal cream Place 0.5 g vaginally twice a week. 1 Tube 3 12/07/2020 4 glucosamine sulfate 500 mg capsule Take 2 Caps by mouth daily. 3 hydroCHLOROthiazi de (HYDRODIURIL) 25 mg tablet Take 1 Tablet by mouth daily. 90 Tablet 1 11/20/2021 2 losartan (COZAAR) 100 mg tablet Take 1 Tablet by mouth daily. 90 Tablet 1 11/20/2021 2 omeprazole (PRILOSEC) 20 mg capsuleIndication s:Gastroesophagea l reflux disease TAKE ONE CAPSULE BY MOUTH AT BEDTIME 90 capsule 3 10/15/2021 3 venlafaxine (EFFEXOR-XR) 37.5 mg XR capsuleIndication s:Anxiety,Depress ion, unspecified depression type TAKE ONE CAPSULE BY MOUTH EVERY DAY 90 capsule 3 01/24/2022 3 documented as of this encounter Discharge Disposition Disposition Code Departure Means Destination Home or Self Care documented in this encounter Plan of Treatment Upcoming Encounters Date Type Department Care Team (Late st Contact Info) Description 11/11/2024 15:30 EST Office Visit [address] [phone] Osbaldo Dewitt, SG [address] [place] [address] documented as of this encounter Procedures Procedure Name Priority Date/Time Associated Diagnosis Comments MA BREAST SCREENING JULIAN BILATERAL Routine 03/01/2022 8:05 EDT Encounter for screening mammogram for malignant neoplasm of breast documented in this encounter Results * MA BREAST SCREENING JULIAN BILATERAL (03/01/2022 [...] NP IMG MAMMOGRAPHY ORDERABLES Fin al Result documented in this encounter Visit Diagnoses Diagnosis Encounter for screening mammogram for malignant neoplasm of breast Other screening mammogram documented in this encounter Care Teams Nurse Infection Control Relationship Specialty Start Date End Date Osbaldo Dewitt NP [address] [place] [address] PCP - General 09/01/19 documented as of this encounter
--- OUTSIDE RECORDS SUMMARY | 2024-09-30 00:20 | XMS_ITS | Encounter Summary ---
Author Organization [facility] Address [address] [place] [address] Care Team Providers Care Electronics Utility Worker Name Role Phone Osbaldo Dewitt NP Primary Care Provider [phone] Reason for Visit * Reason Onset Date Comments Dizziness 03/05/2022 Encounter Details Date Type Department Care Team (Late st Contact Info) Description 03/05/2022 Telephone [facility] Medicine [facility] [address] [place] [address] Osbaldo Dewitt NP [address] [place] [address] Dizziness Social History Tobacco Use Types Packs/Day [...] 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 * Telephone Encounter - Alekseysonia Candy - 03/05/2022 1241 EDT Pt calls in to report that her vertigo has come and gone bad the last three days and today has beenthe worst; today started this morning, she's tried the exercises she's been instructed to, but thatmade it worse. Pt would like to discuss what to do. documented in this encounter Plan of Treatment Upcoming Encounters Date Type Department Care Team (Late st Contact Info) Description 11/11/2024 15:30 EST Office Visit [facility] Family [address] [address] Osbaldo Dewitt NP [address] [place] [address] documented as of this encounter Visit Diagnoses Not on filedocumented in this encounter Care Teams Electronics Utility Worker Relationship Specialty Start Date End Date Osbaldo Dewitt NP [address] [place] [address] PCP - General 09/01/19 documented as of this encounter
--- OUTSIDE RECORDS SUMMARY | 2024-09-30 00:20 | XMS_ITS | Encounter Summary ---
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 documented as of this encounter Plan of Treatment Upcoming Encounters Date Type Department Care Team (Late st Contact Info) Description 11/11/2024 15:30 EST Office Visit [facility] Integrative Family Medicine [facility] [address] [place] [address] Osbaldo Dewitt NP [address] [place] [address] documented as of this encounter Procedures Procedure Name Priority Date/Time Associated Diagnosis Comments URINALYSIS/COMPLETE - [facility] Routine 05/22/2021 10:23 EDT documented in this encounter Results * URINALYSIS/COMPLETE - [facility] (05/22/2021 10:23 EDT) URINE APPEARANCE - [facility] Clear CLEAR 05/22/2021 12:22 [facility] URINE BACTERIA - [facility] NEG 05/22/2021 13:17 [facility] URINE BILIRUBIN - [facility] - [facility] Negative NEGATIVE 05/22/2021 12:22 [facility] URINE BLOOD - [facility] Trace NEG 05/22/2021 12:22 [facility] URINE COLOR - [facility] Yellow YELLOW 05/22/2021 12:22 [facility] URINE GLUCOSE - [facility] - [facility] Negative NEGATIVE 05/22/2021 12:22 [facility] URINE KETONE - [facility] Negative NEGATIVE 05/22/2021 12:22 [facility] URINE LEUK ESTERASE - [facility] Negative NEG 05/22/2021 12:22 [facility] URINE NITRITE - [facility] - [facility] Negative NEG 05/22/2021 12:22 [facility] URINE PH - [facility] 7.0 4.0 - 8.0 12:22 [facility] URINE PROTEIN - [place] - [facility] Negative NEG 05/22/2021 12:22 [facility] URINE RBC - [facility] RARE rbc/hpf 05/22/20 13:17 [facility] URCULTIF+? - [facility] No Culture Indicated 05/22/2021 13:17 [facility] Comment:CULTURE IS NOT INDIC ATED, BASED ON RESULTS OF THE URINALYSIS URINE SPECIFIC GRAVITY - [facility] 1.010 1.001 - 1.035 05/22/2021 12:22 [facility] URINE SQUAMOUS CELLS - [facility] RARE NEG #/hpf 05/22/2021 13:17 [facility] URINE UROBILINOGEN - [facility] - [facility] 0.2 0.2 - 1.0 05/22/2021 12:22 [facility] URINE WBC - [facility] NEG NEG wbc/hpf 021 13:17 EDT [facility] 05/22/2021 10:2 3 EDT 05/22/2021 10:23 EDT Narrative [facility] - 05/22/2021 13:17 EDT Does PT Have a Latex Allergy? NO us Osbaldo Dewitt NP CHEMISTRY & BLOOD GAS ORDERABL ES Final Result [facility] [address] [place] [address] documented in this encounter Visit Diagnoses Not on filedocumented in this encounter Care Teams Ios Software Engineer Relationship Specialty Start Date End Date Osbaldo Dewitt, SG [address] [place] [address] PCP - General 09/01/19 documented as of this encounter
--- OUTSIDE RECORDS SUMMARY | 2024-09-30 00:20 | XMS_ITS | Encounter Summary ---
Author Organization [facility] Address [address] [place] [address] Care Team Providers Care Flat Lock Machine Operator Name Role Phone Osbaldo Dewitt NP Primary Care Provider [phone] Unavailable [phone] Reason for Visit * Reason Comments Other Encounter Details Date Type Department Care Team (Late st Contact Info) Description 05/27/2022 [facility] Integrative Family Medicine [facility] [address] [place] [address] Osbaldo Dewitt NP [address] [place] [address] Other Social History Tobacco Use [...] 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 Patient due for Labs. Ordered. documented in this encounter Plan of Treatment Upcoming Encounters Date Type Department Care Team ([facility] st Contact Info) Description 11/11/2024 15:30 EST Office Visit [facility] Family [address] [address] Osbaldo Dewitt NP [address] [place] [phone] documented as of this encounter Visit Diagnoses Diagnosis Primary hypertension- Primary Unspecified essential hypertension Pure hypercholesterolemia documented in this encounter Discontinued Medications Medication Sig Discontinue Reason Start Date End Da te losartan (COZAAR) 100 mg tablet Take 1 Tablet by mouth daily. 11/20/2021 05/27/2022 documented as of this encounter Care Teams Flat Lock Machine Operator Relationship Specialty Start Date End Date Osbaldo Dewitt NP [address] [place] [id number] PCP - General 09/01/[address] [place] [address] Registered Dietitian Clinical Nutrition 10/21/23 documented as of this encounter
--- OUTSIDE RECORDS SUMMARY | 2024-09-30 00:20 | XMS_ITS | Encounter Summary ---
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 Not on file Not on tone e documented as of this encounter Plan of Treatment Upcoming Encounters Date Type Department Care Team (Late st Contact Info) Description 11/11/2024 15:30 EST Office Visit [facility] Integrative Family Medicine [facility] [address] [place] [address] Osbaldo Dewitt NP [address] [place] [address] documented as of this encounter Visit Diagnoses Diagnosis Other microscopic hematuria- Primary documented in this encounter Care Teams Transition Manager Relationship Specialty Start Date End Date Osbaldo Dewitt NP [address] [place] [address] PCP - General 09/01/19 documented as of this encounter
--- OUTSIDE RECORDS SUMMARY | 2024-09-30 00:20 | XMS_ITS | Encounter Summary ---
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 No / Unsure 08/13/2021 8:19 EST documented as of this encounter Ordered Prescriptions Prescription Sig Dispense Quantity Refills Last Filled Start Date End Date atenoloL (TENORMIN) 25 mg tablet TAKE ONE TABLET BY MOUTH EVERY DAY 90 Tablet 3 08/22/2021 09/05/2022 documented in this encounter Miscellaneous Notes * Telephone Encounter - Alee Tyler - 09/05/2022 1118 EST LVM for pt to schedule PEX * Telephone Encounter - Grace Wright, RN - 08/22/2021 0919 EST JALEN - 08/13/21 NOV - none last BMP - 12/15/20 Rx(s) escribed to pharmacy. GRACE WRIGHT, RN documented in this encounter Plan of Treatment Upcoming Encounters Date Type Department Care Team (Late st Contact Info) Description 11/11/2024 15:30 EST Office Visit [facility] Integrative Family Medicine [address] [id number] Osbaldo Dewitt NP [address] [place] [phone] documented as of this encounter Visit Diagnoses Not on filedocumented in this encounter Discontinued Medications Medication Sig Discontinue Reason Start Date End Da te atenolol (TENORMIN) 25 mg tablet Take 1 Tab by mouth daily. 08/22/2021 documented as of this encounter Care Teams Catapult And Arresting Gear Officer Relationship Specialty Start Date End Date Osbaldo Dewitt NP [address] [place] [phone] PCP - General 09/01/19 documented as of this encounter
--- OUTSIDE RECORDS SUMMARY | 2024-09-30 00:20 | XMS_ITS | Encounter Summary ---
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 No / Unsure 08/13/2021 8:19 EST documented as of this encounter Plan of Treatment Upcoming Encounters Date Type Department Care Team (Late st Contact Info) Description 11/11/2024 15:30 EST Office Visit [facility] Integrative Family Medicine [facility] [address] [place] [address] Osbaldo Dewitt NP [address] [place] [address] documented as of this encounter Visit Diagnoses Not on filedocumented in this encounter Care Teams Glove Parts Cutter Relationship Specialty Start Date End Date Osbaldo Dewitt NP [address] [place] [address] PCP - General 09/01/19 documented as of this encounter
--- OUTSIDE RECORDS SUMMARY | 2024-09-30 00:20 | XMS_ITS | Encounter Summary ---
Author Organization [facility] Address [address] [place] [address] Care Team Providers Care 4Th Grade Math Teacher Name Role Phone Osbaldo Dewitt NP Primary Care Provider [phone] Reason for Referral * Consult (Routine/Next Available) - Closed Specialty Diagnoses / Procedures Referred By Chance le Referred To Contact Family Medicine Diagnoses Obesity (BMI 35.0-39.9 without comorbidity) Osbaldo Dewitt NP Phone: tel: fax: [facility] [address] [address] Phone: tel: fax: Referral ID Status Reason Start Date Expiration Date V isits Requested Visits Authorized [id number] Closed Specialty Services Required 11/18/2022 1 1 Question Answer Nutrition/consumer educator/Education: Wellness coaching, Weight loss * PT/OT/ST (Routine/Next Available) - Closed Specialty Diagnoses / Procedures Referred By Chance le Referred To Contact Diagnoses Chronic pain of left knee Osbaldo Dewitt NP Phone: tel: fax: Referral ID Status Reason Start Date Expiration Date V isits Requested Visits Authorized [id number] Closed Specialty Services Required 11/18/2022 1 1 Question Answer Reason for Request: left knee pain SITE [facility] Physical Therapy - [facility] * Consult (Routine/Next Available) - Closed Specialty Diagnoses / Procedures Referred By Contmorgan t Referred To Contact Diagnoses Chronic pain of left knee Chronic pain of both shoulders Osbaldo Dewitt NP Phone: tel: fax: [address] [place] [address] Phone: tel: Referral ID Status Reason Start Date Expiration Date V isits Requested Visits Authorized [id number] Closed Specialty Services Required 11/18/2022 1 1 Question Answer Reason for Request: left knee pain and bilateral shoulder knee pain SITE [facility] Orthopedics Reason for Visit * Reason Comments Annual Exam Concerns: left knee pain, bilat shoulder pain Encounter Details Date Type Department Care Team (Late st Contact Info) Description 11/18/2022 14:45 EST Office Visit [facility] [address] [address] Osbaldo Dewitt NP [address] [place], [place] [id number] Encounter for annual physical exam (Primary Dx); Pure hypercholesterolemia ; Chronic pain of left knee; Chronic pain of both shoulders; Encounter for screening mammogram for malignant neoplasm of breast; Obesity (BMI 35.0-39.9 without comorbidity); Need for vaccination Social History Tobacco Use Types Packs/Day Years [...] place to sleep or slept in a chcf (including now)? 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 No / Unsure 11/18/2022 14:15 EST documented as of this encounter Last Filed Vital Signs Vital Sign Reading Time Taken Comments Blood Pressure 126/84 11/18/2022 1422 EST Pulse 85 11/18/2022 1422 EST Temperature 36.2 ??C (97.2 ??F) 11/18/2022 1422 EST Respiratory Rate 15 11/18/2022 1422 EST Oxygen Saturation - - Inhaled Oxygen Concentration - - Weight 110.2 kg (243 lb) 11/18/2022 1422 EST Height 175.3 cm (5' 9.02) 11/18/2022 1422 EST Body Mass Index 35.86 11/18/2022 1422 EST documented in this encounter Ordered Prescriptions Prescription Sig Dispense Quantity Refills Last Filled Start Date End Date atenoloL (TENORMIN) 25 mg tablet Take 1 Tablet by mouth daily. 90 Tablet 11/18/2022 03/05/2023 documented in this encounter Progress Notes * Osbaldo Dewitt, LUMBER MARKER - 11/18/2022 1445 EST [facility] Primary Care Preventive Service Visit Subjective: HPI: The 62 y.o. female presents for a routine check-up and exam. CONCERNS: 1. Left medial knee pain, knocking in her knee starting 2-3 months ago. Endorses swelling, instability. Denies specific injury. Also with bilateral shoulder pain, completed PT for 6 weeks without benefit. Hypertension Managed with??hydrochlorothiazide/losarten 25 mg/100 mg QD and atenolol 25 mg QD. Medication adherence is??good.??Denies chest pain, shortness of breath, new onset edema. ?? 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 Patient is postmenopausal. Last pap: 2019 Hx of abnormal pap: none Behavioral Health Screen PHQ-2 Little interest or pleasure in doing things?: (P) Not at all Feeling down, depressed, or hopeless?: (P) Not at all PHQ-2 SUBTOTAL: (P) 0 SASQ How many times in the past year have you had 4 or more drinks in a single day?: (P) More than once AUDIT-10 How often do you have a drink containing alcohol?: (P) 2-3 times/week How many drinks containing alcohol do you have on a typical day when you are drinking?: (P) 1 or 2 How often do you have six or more drinks on one occasion?: (P) monthly How often during the last year have you found that you were not able to stop drinking once you had started?: (P) never How often during the last year have you failed to do what was normally expected of you because of drinking?: (P) Never How often during the last year have you needed a first drink in the morning to get yourself going after a heavy drinking session?: (P) never How often during the last year have you had a feeling of guilt or remorse after drinking?: (P) never How often during the last year have you been unable to remember what happened the night before because of your drinking?: (P) never Have you or someone else been injured because of your drinking?: (P) No Has a relative, friend, doctor, or other health care worker been concerned about your drinking or suggested you cut down?: (P) No AUDIT-10 TOTAL: (P) 5 AUDIT Interpretation: (P) Low-risk alcohol use. AUDIT Suggested Action: (P) No further Action Prescription Misuse How many times in the past year have you used an illegal drug or used a prescription medication fornon-medical reasons?: (P) Never Health Maintenance Topic Date Due ??? Advance Directive Never done ??? Cervical Cancer Screening 04/20/2022 ??? Social Determinants Of Health (SDOH) 11/11/2023 ??? Behavioral Health Screen 11/18/2023 ??? Breast Cancer Screening 03/01/2024 ??? Preventive Care Visit 11/18/2024 ??? Lipid Profile Screening (Cholesterol) 12/15/2025 ??? Colorectal Cancer Screening 09/05/2026 ??? Tetanus (Adult) Immunization 11/18/2032 ??? Pertussis (Adult) Immunization Completed ??? Shingles Immunization Completed ??? Hepatitis C Screen Completed ??? Influenza Immunization (Adult) Completed ??? COVID-19 Vaccine Completed ??? HIV Screening Discontinued CHRONIC HEALTH CONCERNS: Patient Active Problem List Diagnosis Date Noted ??? Anxiety 11/09/2019 ??? Depression 11/09/2019 ??? Insomnia 11/09/2019 ??? Lichen sclerosus et atrophicus 11/09/2019 ??? Menopausal syndrome (hot flashes) 11/09/2019 ??? Postmenopause atrophic vaginitis 11/09/2019 ??? Pure hypercholesterolemia 11/09/2019 ??? Rosacea 11/09/2019 ??? Seasonal allergic rhinitis 11/09/2019 ??? 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 Hypertension 11/02/2019 Past Medical History: Diagnosis Date ??? GERD (gastroesophageal reflux disease) Ramy Fundoplication Past Surgical History: Procedure Laterality Date ??? GASTRIC FUNDOPLICATION 2009 Ramy-fundoplication at [facility] Family History Problem Relation Age [...] Carrier Neg Hx Social History Tobacco Use ??? Smoking status: Former Years: 2.00 Types: Cigarettes Quit date: 1977 Years since quittin.1 ??? Smokeless tobacco: Never Vaping Use ??? Vaping Use: Never used Substance Use Topics ??? Alcohol use: Yes Alcohol/week: 14.0 standard drinks Types: 14 Glasses of wine per week ??? Drug use: Never Current Outpatient Medications on File Prior to Visit Medication Sig Dispense Refill ??? cetirizine (ZYRTEC) 10 mg tablet Take [...] TABLET BY MOUTH EVERY DAY 90 Tablet 0 ??? omeprazole (PRILOSEC) 20 mg capsule TAKE ONE CAPSULE BY MOUTH AT BEDTIME 90 Capsule 1 ??? venlafaxine (EFFEXOR-XR) 37.5 mg XR capsule TAKE ONE CAPSULE BY MOUTH EVERY DAY 90 capsule 3 No current facility-administered medications on file prior to visit. ROS: Review of Systems Gastrointestinal: + acid reflux Musculoskeletal: Positive for arthralgias. Allergic/Immunologic: Positive for environmental allergies. All other systems reviewed and are negative. I have reviewed patient's medication list, past medical history, social history, and family historyand updated as appropriate on 11/18/2022. Objective: Examination: Vitals: BP 126/84 Pulse 85 Temp 36.2 ??C (97.2 ??F) Resp 15 Ht 175.3 cm (69.02) Wt (!) 110.2 kg (243 lb) BMI 35.86 kg/m?? Body mass index is 35.86 kg/m??. Physical Exam Constitutional: General: She is not in acute distress. Appearance: She is well-developed. She is obese. She is not diaphoretic. HENT: Head: Normocephalic and atraumatic. Right Ear: External ear normal. Left Ear: External ear normal. Eyes: Extraocular Movements: Extraocular movements intact. Conjunctiva/sclera: Conjunctivae normal. Neck: Thyroid: No thyromegaly. Vascular: No carotid bruit. Cardiovascular: Rate and Rhythm: Normal rate and regular rhythm. Heart sounds: Normal heart sounds. No murmur heard. Pulmonary: Effort: Pulmonary effort is normal. Breath sounds: Normal breath sounds. Abdominal: General: Bowel sounds are normal. There is no distension. Palpations: Abdomen is soft. Tenderness: There is no abdominal tenderness. Musculoskeletal: General: No deformity. Normal range of motion. Cervical back: Normal range of motion and neck supple. Left knee: Swelling (mild medial joint line edema) present. No erythema. Normal range of motion. Tenderness present over the medial joint line. Abnormal meniscus. Lymphadenopathy: Cervical: No cervical adenopathy. Skin: General: [...] any previous visit (from the past 24 hour(s)). Assessment & Plan: Sandie was seen today for annual exam. Diagnoses and all orders for this visit: Encounter for annual physical exam Pure hypercholesterolemia Comments: Results reviewed. ASCVD risk 4.8% Chronic pain of left knee Comments: Suspect degenerative meniscal tear. Advised ice, elevation, rest, compression sleeve. Plan to checkx-rays and refer to orthopedics for further evaluation. Will also begin physical therapy. Orders: - Cancel: XR KNEE LEFT 3 VIEWS; Future - AMB CONS/FOLLOW UP ORTHOPEDICS - EXTERNAL; Future - XR KNEE LEFT 3 VIEWS; Future - AMB CONS/FOLLOW UP PHYSICAL THERAPY - OUTSIDE OF NETWORK; Future Chronic pain of both shoulders - AMB CONS/FOLLOW UP ORTHOPEDICS - EXTERNAL; Future Encounter for screening mammogram for malignant neoplasm of breast - MA BREAST SCREENING JULIAN BILATERAL; Future Obesity (BMI 35.0-39.9 without comorbidity) - AMB CONS/FOLLOW UP CONSTRUCTION CONSULTANT, PATTERN WEAVER AND NUTRITION; Future Need for vaccination Comments: Risk/benefits of vaccination reviewed. Orders: - TDAP (BOOSTRIX) VACCINE =>7YO IM Other orders - atenoloL (TENORMIN) 25 mg tablet; Take 1 Tablet by mouth daily. Blood pressure and BMI goals reviewed. Immunizations reviewed, Tdap given. Fasting lipid and blood glucose reviewed. Mammogram screening ordered. Screening colonoscopy due 2025. DEXA due age 64. Pap/HPV screening due [id number] Discussed safety prevention measures, healthy diet and exercise goals. Follow up: Return for hypertension. Osbaldo Dewitt NP Speech recognition software was used to complete this progress note. Typographical errors may be present. documented in this encounter Plan of Treatment Upcoming Encounters Date Type Department Care Team (Late st Contact Info) Description 11/11/2024 15:30 EST Office Visit [facility] [address] [phone] Osbaldo Dewitt NP [address] [place], [place] [address] Scheduled Referrals Name Type Priority Associated Diagnoses Order Schedule AMB CONS/FOLLOW UP ORTHOPEDICS - EXTERNAL Outpatient Referral Routine/Next Available Chronic pain of left knee Chronic pain of both shoulders Expected: 12/16/2022 (Approximate), Expires: 11/18/2023 AMB CONS/FOLLOW UP PHYSICAL THERAPY - OUTSIDE OF NETWORK Outpatient Referral Routine/Next Available Chronic pain of left knee Expected: 11/25/2022 (Approximate), Expires: 11/18/2023 AMB CONS/FOLLOW UP CONSTRUCTION CONSULTANT, PATTERN WEAVER AND NUTRITION Outpatient Referral Routine/Next Available Obesity (BMI 35.0-39.9 without comorbidity) Expected: 11/25/2022 (Approximate), Expires: 11/18/2023 documented as of this encounter Visit Diagnoses Diagnosis Encounter for annual physical exam- Primary Pure hypercholesterolemia Chronic pain of left knee Pain in joint, lower leg Chronic pain of both shoulders Pain in joint, shoulder region Encounter for screening mammogram for malignant neoplasm of breast Other screening mammogram Obesity (BMI 35.0-39.9 without comorbidity) Obesity, unspecified Need for vaccination Need for prophylactic vaccination and inoculation against unspecified single disease documented in this encounter Discontinued Medications Medication Sig Discontinue Reason Start Date End Da te atenoloL (TENORMIN) 25 mg tablet TAKE ONE TABLET BY MOUTH EVERY DAY Reorder 09/05/2022 11/18/2022 documented as of this encounter Orders Immunization/Injection Count Last Ordered Date First Ordered Date TDAP (BOOSTRIX) VACCINE =>7YO IM 1 11/18/19 23 documented in this encounter Care Teams 4Th Grade Math Teacher Relationship Specialty Start Date End Date Osbaldo Dewitt NP [address] [place] [phone] PCP - General 09/01/19 documented as of this encounter
--- OUTSIDE RECORDS SUMMARY | 2024-09-30 00:20 | XMS_ITS | Encounter Summary ---
Author Organization [facility] Address [address] [place] [address] Care Team Providers Care Daycare Teacher Name Role Phone Osbaldo Dewitt NP Primary Care Provider [phone] Reason for Visit * Reason Comments Other BP and cardiac desiree rns, has not been taking BPs yet at home Encounter Details Date Type Department Care Team (Latest Contact Info) Description 01/25/2021 8:30 EDT Telemedicine 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 [facility] Video Visit Today's visit was provided through [...] or auxiliary staff: YES. Subjective: Chief Complaint(s): Other (BP and cardiac concerns, has not been taking BPs yet at home) HPI: Sandie presents today with c/o left sided chest pain 1 week ago beginning at rest which she attributes to extensive raking the day before. Pain lasted 5 hours, described as 5-10/10 pulsating. Denies associated nausea, diaphoresis, SOB at the time of symptoms. Seen by PT later that week who didn't feel like it was MS related. BP 145 systolic at PT. Home check today 140/100. Endorses stress, old BP cuff that is too small. Has been feeling fine since that episode. Family hx of CAD. PMH: HTN, HLD The 10-year ASCVD risk score (Vidal ISAIAH Jr., et al., 2013) is: 4% Values used to calculate the score: Age: 60 years Sex: Female Is Non- : No Diabetic: No Tobacco smoker: No Systolic Blood Pressure: 116 mmHg Is BP treated: Yes HDL Cholesterol: 63 mg/dL Total Cholesterol: 225 mg/dL I have reviewed patient's tobacco history: reports [...] a week prn 30 g 3 ??? doxycycline (PERIOSTAT) 20 mg tablet TAKE TWO TABLETS BY MOUTH EVERY DAY 180 Tab 3 ??? estradioL (ESTRACE) 0.01 % (0.1 mg/gram) vaginal cream Place 0.5 g vaginally twice a week. 1 Tube 3 ??? fexofenadine (LAKESHA ALLERGY) 180 mg tablet Take 1 Tab by mouth daily. ??? fluticasone propionate (FLONASE) 50 mcg/actuation nasal [...] of Systems Constitutional: Negative. Respiratory: Negative for cough and shortness of breath. Cardiovascular: Positive for chest pain, palpitations and leg swelling. Gastrointestinal: Negative. Neurological: Negative for syncope and light-headedness. Objective: Examination: Home Vitals: Ht 175.3 cm (69.02) Wt (!) 105.7 kg (233 lb) BMI 34.39 kg/m?? Pertinent exam findings patient can observe: GENERAL APPEARANCE: no acute distress, pleasant, cooperative. HEENT EYES:, conjunctiva clear. NECK: supple LUNGS: unlabored NEUROLOGIC EXAM: alert & oriented x3 PSYCH: mood appropriate, affect full range Data reviewed with patient: notes from last encounter, lab results Assessment & Plan: Sandie was seen today for other. Diagnoses and all orders for this visit: Chest pain, unspecified type Comments: Episode of left-sided chest pain at rest lasting 5 hours 1 week ago, resolving with sleep. Cardiac risk factors of hypertension, hyperlipidemia and positive family history. Will check stress test forfurther evaluation. Advised immediate evaluation at the emergency room for any recurrence of symptoms -chest pain lasting longer than 5 minutes or chest pain with any associated symptoms such as shortness of breath, nausea, dizziness, palpitations or referred pain to left arm or neck. Orders: - EXERCISE TOLERANCE TEST (ETT); Future Essential hypertension Comments: Elevated at home check today although patient endorses old BP cuff that is too small. She will get a new cuff and continue to monitor, calling for persistent elevations greater than 140 systolic. Pure hypercholesterolemia Comments: ASCVD risk 4%. LDL 145. Patient prefers to continue lifestyle interventions at this time. Return for follow up after testing. I spent a total of 30 minutes on the date of this encounter meeting with the patient and reviewing documentation/coordinating care as described in the above note. No procedures were performed at the time of the visit. The following staff and their role did participate in today's encounter visit: Osbaldo Dewitt APRN documented in this encounter Plan of Treatment Upcoming Encounters Date Type Department Care Team (Late st Contact Info) Description 11/11/2024 15:30 EST Office Visit [facility] [address] [phone] Osbaldo Dewitt NP [address] [place] [phone] documented as of this encounter Visit Diagnoses Diagnosis Chest pain, unspecified type- Primary Essential hypertension Unspecified essential hypertension Pure hypercholesterolemia documented in this encounter Historical Medications * This list may reflect changes made after this encounter. cetirizine (ZYRTEC) 10 mg tablet Take 1 Tablet by mouth daily. 11/11/2023 added in this encounter Care Teams Daycare Teacher Relationship Specialty Start Date End Date Osbaldo Dewitt NP [address] [place] [phone] PCP - General 09/01/19 documented as of this encounter
--- OUTSIDE RECORDS SUMMARY | 2024-09-30 00:20 | XMS_ITS | Encounter Summary ---
Author Organization [facility] Address [address] [place] [address] Care Team Providers Care Stove Tender Name Role Phone Osbaldo Dewitt NP Primary Care Provider [phone] Unavailable [phone] Reason for Visit * Reason Onset Date Comments Labs Only 09/12/2022 Encounter Details Date Type Department Care Team (Late st Contact Info) Description 09/12/2022 Telephone [facility] [address] [place] [address] Osbaldo Dewitt NP [address] [place] [address] Labs Only Social History Tobacco [...] 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 * Telephone Encounter - Alee Tyler - 09/12/2022 0946 EST Pt called to set up PEX (11/18/22) - Would like labs set up prior to her appt - PLEASE SEND TO [facility]. Let me know when done and i'll call out to her. documented in this encounter Plan of Treatment Upcoming Encounters Date Type Department Care Team (Late st Contact Info) Description 11/11/2024 15:30 EST Office Visit [facility] [address] [address] Osbaldo Dewitt NP [address] [place] [phone] documented as of this encounter Visit Diagnoses Not on filedocumented in this encounter Care Teams Stove Tender Relationship Specialty Start Date End Date Osbaldo Dewitt NP [address] [place] [phone] PCP - General 09/01/[address] [place] [phone] Registered Dietitian Clinical Nutrition 10/21/23 documented as of this encounter
--- OUTSIDE RECORDS SUMMARY | 2024-09-30 00:20 | XMS_ITS | Encounter Summary ---
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 No / Unsure 11/18/2022 14:15 EST documented as of this encounter Plan of Treatment Upcoming Encounters Date Type Department Care Team (Late st Contact Info) Description 11/11/2024 15:30 EST Office Visit [facility] [address] [place] [address] Osbaldo Dewitt NP [address] [place] [address] documented as of this encounter Visit Diagnoses Not on filedocumented in this encounter Care Teams Cotton Inspector Relationship Specialty Start Date End Date Osbaldo Dewitt NP [address] [place] [address] PCP - General 09/01/19 documented as of this encounter
--- OUTSIDE RECORDS SUMMARY | 2024-09-30 00:20 | XMS_ITS | Encounter Summary ---
Author Organization 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 Not on tone e documented as of this encounter Plan of Treatment Upcoming Encounters Date Type Department Care Team (Late st Contact Info) Description 11/11/2024 15:30 EST Office Visit [facility] Integrative Family Medicine [facility] [address] [place] [address] Osbaldo Dewitt, EQUIPMENT MONITOR PHOTOTYPESETTING [address] [place] [address] documented as of this encounter Procedures Procedure Name Priority Date/Time Associated Diagnosis Comments EXERCISE TOLERANCE TEST (ETT) 02/08/2021 14:00 EDT documented in this encounter Results * EXERCISE TOLERANCE TEST (ETT) (02/08/2021 14:00 EDT) Anatomical Region Laterality Modality Nuclear Stress 02/08/2021 14:0 0 EDT Narrative 02/11/2021 12:00 EDT *[facility]* *[facility]* [address] [place] [address] Stress Electrocardiography Demetris protocol Date of study: ??02/08/2021 *PATIENT PRESENTATION* Height: ? 172.7cm (68in) Blood Pressure: Weight: ? 106.4kg (234lb) BSA: ?2.3m^2 Ordering physician: Osbaldo Dewitt Impressions: - Normal study after maximal exercise. - Excellent exercise capacity. - Suboptimal BP control. Summary: 1. Stress ECG conclusions: The stress ECG is negative. 2. Stress: There is resting hypertension with a hypertensive response to ?? stress. The patient experienced no chest pain during stress. Exercise ?? capacity is above normal for age. Indication: ?? CHEST PAIN. History: THREE WEEKS AGO, A SINGLE EPISODES OF A SHARP, SHOOTING PAIN IN LEFT CHEST AND LEFT SHOULDER. PAIN LASTED 5 HOURS AND HAS NOT REOCCURRED. PRESENTLY BEING TREATED FOR NERVE IMPINGEMENT IN LEFT SHOULDER. NO PREVIOUS CARDIAC HISTORY. ??Risk factors: ??Obesity. Cholesterol: 225mg/dl. HDL: 63mg/dl. LDL: 145mg/dl. Triglycerides: 83mg/dl. MEDS: SEE EPIC. Protocol: ??Demetris protocol. Baseline ECG: ??NSR- 73 BPM. Stress protocol: + +---+ + !Stage ?!HR !BP (mmHg) ?? ! + +---+ + !Baseline supine ?!73 !142/79 (100)! + +---+ + !Baseline standing ?!77 !145/94 (111)! + +---+ + !Stage I; 1.7mph, 10degrees; 3 min ??!105!179/90 (120)! + +---+ + !Stage II; 2.5mph, 12degrees; 3 min !118!190/93 (125)! + +---+ + !Stage III; 3.4mph, 14degrees; 3 min!143!211/99 (136)! + +---+ + !Stage IV; 4.2mph, 16degrees; 3 min !140! ! + +---+ + !Peak stress ?!143! ! + +---+ + !Recovery; 1 min ?!116!211/99 (136)! + +---+ + !Recovery; 3 min ?!90 !183/96 (125)! + +---+ + !Recovery; 6 min ?!82 !156/96 (116)! + +---+ + * Stress results: ?? Maximal heart rate during stress was 143bpm (90% of maximal predicted heart rate). The maximal predicted heart rate was 159bpm. There is resting hypertension with a hypertensive response to stress. The rate-pressure product for the peak heart rate and blood pressure was 04812hb Hg/min. ??The patient experienced no chest pain during stress. ?? Exercise capacity is above normal for age. Stress ECG: ABOVE AVERAGE FUNCTIONAL CAPACITY GOOD EXERCISE CORTNEY- 10 METS ( 9 MINUTES 9 SECONDS IN [facility]) MAX HR- 143 BPM NO CHEST PAIN NO ECTOPY HYPERTENSIVE NO ISCHEMIC ECG CHANGES. ??The stress ECG is negative. Study data: ??Anu Balbuena MD supervised and was readily available during the procedure. This study was interpreted by [facility]. ??Study status: ??Routine. ??Consent: ??The risks, benefits, and alternatives to the procedure were explained to the patient and informed consent was obtained. ??Procedure: ??The patient was identified by two identifiers. Initial setup. A baseline ECG was recorded. Surface ECG leads and manual cuff blood pressure measurements were monitored. Heart sounds: Normal. Lung sounds: Normal. Treadmill exercise testing was performed using the Demetris protocol. The patient exercised for 9 min 9 sec, to protocol stage 4, to a maximal work rate of 10mets. ??Study completion: ??The patient tolerated the procedure well and was discharged from the lab. Discharge: ??The patient left the laboratory in stable condition. Birthdate: ??Patient birthdate: 1960. ??Sex: ??Gender: female. ??Study date: ??Study date: 02/08/2021. Study time: 02:00 PM. Signature Documentation: ?? The Stress ECG portion of this study was interpreted by Anu Balbuena MD. Electronically signed by Anu Balbuena 02/11/2021 11:55 Procedure Note Anu Balbuena MD - 02/11/2021 *[facility]* *[facility]* [address] [place] [address] Stress Electrocardiography Demetris protocol Date of study: 02/08/2021 *PATIENT PRESENTATION* Height: 172.7cm (68in) Blood Pressure: Weight: 106.4kg (234lb) BSA: 2.3m^2 Ordering physician: Osbaldo Dewitt Impressions: - Normal study after maximal exercise. - Excellent exercise capacity. - Suboptimal BP control. Summary: 1. Stress ECG conclusions: The stress ECG is negative. 2. Stress: There is resting hypertension with a hypertensive response to stress. The patient experienced no chest pain during stress. Exercise capacity is above normal for age. Indication: CHEST PAIN. History: THREE WEEKS AGO, A SINGLE EPISODES OF A SHARP, SHOOTING PAIN IN LEFT CHEST AND LEFT SHOULDER. PAIN LASTED 5 HOURS AND HAS NOT REOCCURRED. PRESENTLY BEING TREATED FOR NERVE IMPINGEMENT IN LEFT SHOULDER. NO PREVIOUS CARDIAC HISTORY. Risk factors: Obesity. Cholesterol: 225mg/dl. HDL: 63mg/dl. LDL: 145mg/dl. Triglycerides: 83mg/dl. MEDS: SEE EPIC. Protocol: Demetris protocol. Baseline ECG: NSR- 73 BPM. Stress protocol: + +---+ + !Stage !HR !BP (mmHg) ! + +---+ + !Baseline supine !73 !142/79 (100)! + +---+ + !Baseline standing !77 !145/94 (111)! + +---+ + !Stage I; 1.7mph, 10degrees; 3 min !105!179/90 (120)! + +---+ + !Stage II; 2.5mph, 12degrees; 3 min !118!190/93 (125)! + +---+ + !Stage III; 3.4mph, 14degrees; 3 min!143!211/99 (136)! + +---+ + !Stage IV; 4.2mph, 16degrees; 3 min !140! ! + +---+ + !Peak stress !143! ! + +---+ + !Recovery; 1 min !116!211/99 (136)! + +---+ + !Recovery; 3 min !90 !183/96 (125)! + +---+ + !Recovery; 6 min !82 !156/96 (116)! + +---+ + * Stress results: Maximal heart rate during stress was 143bpm (90% of maximal predicted heart rate). The maximal predicted heart rate was 159bpm. There is resting hypertension with a hypertensive response to stress. The rate-pressure product for the peak heart rate and blood pressure was 65998ld Hg/min. The patient experienced no chest pain during stress. Exercise capacity is above normal for age. Stress ECG: ABOVE AVERAGE FUNCTIONAL CAPACITY GOOD EXERCISE CORTNEY- 10 METS ( 9 MINUTES 9 SECONDS IN [facility] EPROTOCOL) MAX HR- 143 BPM NO CHEST PAIN NO ECTOPY HYPERTENSIVE NO ISCHEMIC ECG CHANGES. The stress ECG is negative. Study data: Anu Balbuena MD supervised and was readily available during the procedure. This study was interpreted by [facility]. Study status: Routine. Consent: The risks, benefits, and alternatives to the procedure were explained to the patient and informed consent was obtained. Procedure: The patient was identified by two identifiers. Initial setup. A baseline ECG was recorded. Surface ECG leads and manual cuff blood pressure measurements were monitored. Heart sounds: Normal. Lung sounds: Normal. Treadmill exercise testing was performed using the Demetris protocol. The patient exercised for 9 min 9 sec, to protocol stage 4, to a maximal work rate of 10mets. Study completion: The patient tolerated the procedure well and was discharged from the lab. Discharge: The patient left the laboratory in stable condition. Birthdate: Patient birthdate: 1960. Sex: Gender: female. Study date: Study date: 02/08/2021. Study time: 02:00 PM. Signature Documentation: The Stress ECG portion of this study was interpreted by Anu Balbuena MD. Electronically signed by Anu Balbuena 02/11/2021 11:55 us Osbaldo Dewitt NP CARDIAC NM ORDERABLES Final Re sult documented in this encounter Visit Diagnoses Not on filedocumented in this encounter Care Teams Regional Facilities Manager Relationship Specialty Start Date End Date Osbaldo Dewitt, SG [address] [place] [id number] PCP - General 09/01/[address] [place] [address] Registered Dietitian Clinical Nutrition 10/21/23 documented as of this encounter
--- OUTSIDE RECORDS SUMMARY | 2024-09-30 00:20 | XMS_ITS | Encounter Summary ---
Author Organization [facility] Address [address] [place] [address] Care Team Providers Care Human Resources Manager Name Role Phone Osbaldo Dewitt NP Primary Care Provider [phone] Reason for Visit * Reason Comments Follow-up EC, vertigo, hematur ia/see new UA results Encounter Details Date Type Department Care Team (Late st Contact Info) Description 05/31/2021 9:00 EDT Telemedicine [facility] [address] [place] [address] Osbaldo Dewitt, NURSING HOME AIDE [address] [place] [address] Vertigo (Primary Dx); Asymptomatic microscopic hematuria Social History [...] 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 [facility] Video Visit Today's visit was provided through [...] or auxiliary staff: YES. Subjective: Chief Complaint(s): Follow-up (EC, vertigo, hematuria/see new UA results) HPI: Sandie is seen today for follow up EC visit on 05/07/21 for vertigo - completed home Bettie maneuvers and symptoms resolved. Didn't need to follow through with PT. Noted trace microscopic hematuria during routine testing. Repeat UA and microscopic showed trace blood and rare squamous cells. Denies urinary sxs, hx of kidney disease. I have reviewed patient's tobacco history: reports [...] prior to visit. ROS: Review of Systems Genitourinary: Negative. Neurological: Negative. Objective: Examination: Home Vitals: Ht 175.3 cm (69.02) Wt (!) 104.3 kg (230 lb) BMI 33.95 kg/m?? Pertinent exam findings patient can observe: GENERAL APPEARANCE: no acute distress, pleasant, cooperative. HEENT EYES:, conjunctiva clear. NECK: supple LUNGS: unlabored NEUROLOGIC EXAM: alert & oriented x3 PSYCH: mood appropriate, affect full range Data reviewed with patient: notes from last encounter Assessment & Plan: Sandie was seen today for follow-up. Diagnoses and all orders for this visit: Vertigo Comments: Resolved with Bettie cottrell. Asymptomatic microscopic hematuria Comments: Trace RBC and rare squamous cells on repeat urine cytology. I will reach out to urology for furtherrecommendations. Return if symptoms worsen or fail to improve. I spent a total of 30 minutes [...] Info) Description 11/11/2024 15:30 EST Office Visit [facility] [address] [address] Osbaldo Dewitt NP [address] [place], [place] [phone] documented as of this encounter Visit Diagnoses Diagnosis Vertigo- Primary Dizziness and giddiness Asymptomatic microscopic hematuria documented in this encounter Care Teams Human Resources Manager Relationship Specialty Start Date End Date Osbaldo Dewitt NP [address] [place] [address] PCP - General 09/01/19 documented as of this encounter
--- OUTSIDE RECORDS SUMMARY | 2024-09-30 00:20 | XMS_ITS | Encounter Summary ---
Author Organization [facility] Address [address] [place] [address] Care Team Providers Care Asbestos Microscopist Name Role Phone Osbaldo Dewitt NP Primary Care Provider [phone] Reason for Visit * Reason Comments Other Encounter Details Date Type Department Care Team (Late st Contact Info) Description 12/24/2021 Refill [facility] [address] [place] [address] Osbaldo Dewitt NP [address] [place] [address] Other Social History Tobacco Use [...] 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 documented in this encounter Plan of Treatment Upcoming Encounters Date Type Department Care Team (Late st Contact Info) Description 11/11/2024 15:30 EST Office Visit [address] [phone] Osbaldo Dewitt NP [address] [place], [place] [phone] documented as of this encounter Visit Diagnoses Diagnosis Rosacea- Primary documented in this encounter Discontinued Medications Medication Sig Discontinue Reason Start Date End Da te doxycycline (PERIOSTAT) 20 mg tabletIndications:Rosace a TAKE TWO TABLETS BY MOUTH EVERY DAY 12/14/2020 12/24/2021 documented as of this encounter Care Teams Asbestos Microscopist Relationship Specialty Start Date End Date Osbaldo Dewitt NP [address] [place] [address] PCP - General 09/01/19 documented as of this encounter
--- OUTSIDE RECORDS SUMMARY | 2024-09-30 00:20 | XMS_ITS | Encounter Summary ---
Author Organization [facility] Address [address] [place] [address] Care Team Providers Care Electronic Sensing Equipment Assembler Name Role Phone Osbaldo Dewitt NP Primary Care Provider [phone] Reason for Visit * Reason Onset Date Comments Appointment Related 09/12/2022 Encounter Details Date Type Department Care Team (Latest Contact Info) Description 09/12/2022 Orders Only [facility] [address] [place] [address] Osbaldo Dewitt NP [address] [place] [address] Encounter for annual physical exam (Primary Dx); Primary hypertension; Pure hypercholesterolemia Social History Tobacco Use [...] 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 documented in this encounter Plan of Treatment Upcoming Encounters Date Type Department Care Team (Late st Contact Info) Description 11/11/2024 15:30 EST Office Visit [facility] Family [address] [place] [phone] Osbaldo Dewitt NP [address] [place], [place] [phone] documented as of this encounter Visit Diagnoses Diagnosis Encounter for annual physical exam- Primary Primary hypertension Unspecified essential hypertension Pure hypercholesterolemia documented in this encounter Care Teams Electronic Sensing Equipment Assembler Relationship Specialty Start Date End Date Osbaldo Dewitt NP [address] [place], [place] [phone] PCP - General 09/01/19 documented as of this encounter
--- OUTSIDE RECORDS SUMMARY | 2024-09-30 00:20 | XMS_ITS | Encounter Summary ---
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 The patient is concerned about a recent episode of some left sided arm pain that she believes to becardiac related. During this episode, the client denied chest pain, SOB, dizziness, or other worrisome symptoms. The patient agrees to seek care in the ED if she develops any of the severe symptoms listed above. The patient verbalizes understanding of plan. The patient will continue with plan for a Zoom visit with PCP. * Telephone Encounter - Kassi Steiner - 01/19/2021 0985 EDT Patient reports some cardiac changes since last time she was seen about a month ago. Friday had some shooting pain in left shoulder that radiated from chest to left shoulder that lasted for about 5 hours. She thought it was muscular due to exercise, but her PT felt that this is not muscular and maybe cardiac. She showed her an artery that was going in exactly the spot where th pain was. At today's appointment had BP readings of 144/95. Please advise. documented in this encounter Plan of Treatment Upcoming Encounters Date Type Department Care Team (Late st Contact Info) Description 11/11/2024 15:30 EST Office Visit [facility] Integrative Family Medicine [address] [phone] Osbaldo Dewitt NP [address] [place] [address] documented as of this encounter Visit Diagnoses Not on filedocumented in this encounter Care Teams Retail Area Manager Relationship Specialty Start Date End Date Osbaldo Dewitt NP [address] [place] [address] PCP - General 09/01/19 documented as of this encounter
--- OUTSIDE RECORDS SUMMARY | 2024-09-30 00:20 | XMS_ITS | Encounter Summary ---
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 Patient is already scheduled on 02/20/2021 for an exam. * Telephone Encounter - Dat Rojas RN - 02/12/2021 0944 EDT ----- Message from Osbaldo Dewitt APRN sent at 02/12/2021 9:28 EDT ----- Please let Sandie know her stress test was negative, there was elevated BP noted at rest and during exercise. I'd like her to follow up for in person BP check and optimization of her medications. documented in this encounter Plan of Treatment Upcoming Encounters Date Type Department Care Team (Late st Contact Info) Description 11/11/2024 15:30 EST Office Visit [facility] Integrative Family Medicine [address] [address] Osbaldo Dewitt NP [address] [place] [address] documented as of this encounter Visit Diagnoses Not on filedocumented in this encounter Care Teams Business Analyst Consultant Relationship Specialty Start Date End Date Osbaldo Dewitt NP [address] [place] [address] PCP - General 09/01/19 documented as of this encounter
--- OUTSIDE RECORDS SUMMARY | 2024-09-30 00:20 | XMS_ITS | Encounter Summary ---
Author Organization [facility] Address [address] [place] [address] Care Team Providers Care Instructor Creeler Name Role Phone Osbaldo Dewitt NP Primary Care Provider [phone] Unavailable [phone] Reason for Visit * Reason Comments Medications Refill Encounter Details Date Type Department Care Team (Late st Contact Info) Description 09/04/2022 Refill [facility] [address] [place], [place] [phone] Osbaldo Dewitt NP [address] [place] [address] Medications Refill Social History Tobacco [...] 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 Pls schedule PEX. documented in this encounter Plan of Treatment Upcoming Encounters Date Type Department Care Team ([facility] st Contact Info) Description 11/11/2024 15:30 EST Office Visit [facility] Integrative Family Medicine [address] [phone] Osbaldo Dewitt NP [address] [place] [address] documented as of this encounter Visit Diagnoses Diagnosis Primary hypertension Unspecified essential hypertension documented in this encounter Discontinued Medications Medication Sig Discontinue Reason Start Date End Da te atenoloL (TENORMIN) 25 mg tablet TAKE ONE TABLET BY MOUTH EVERY DAY 08/22/2021 09/05/2022 losartan (COZAAR) 100 mg tabletIndications:Primary hypertension TAKE ONE TABLET BY MOUTH EVERY DAY 05/27/2022 09/05/2022 documented as of this encounter Care Teams Instructor Creeler Relationship Specialty Start Date End Date Osbaldo Dewitt NP [address] [place] [id number] PCP - General 09/01/[address] [place] [address] Registered Dietitian Clinical Nutrition 10/21/23 documented as of this encounter
--- OUTSIDE RECORDS SUMMARY | 2024-09-30 00:20 | XMS_ITS | Encounter Summary ---
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 GRACE WRIGHT, RN documented in this encounter Plan of Treatment Upcoming Encounters Date Type Department Care Team (Late st Contact Info) Description 11/11/2024 15:30 EST Office Visit [address] [address] Osbaldo Dewitt NP [address] [place] [address] documented as of this encounter Visit Diagnoses Diagnosis Essential hypertension- Primary Unspecified essential hypertension documented in this encounter Discontinued Medications Medication Sig Discontinue Reason Start Date End Da te losartan-hydrochlorothiaz juanita (HYZAAR) 100-25 mg per tabletIndications:Essenti al hypertension TAKE ONE TABLET BY MOUTH EVERY DAY 12/13/2020 04/16/2021 documented as of this encounter Care Teams Relay Telegrapher Relationship Specialty Start Date End Date Osbaldo Dewitt NP [address] [place] [address] PCP - General 09/01/19 documented as of this encounter
--- OUTSIDE RECORDS SUMMARY | 2024-09-30 00:20 | XMS_ITS | Encounter Summary ---
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 90 Tablet 10/28/2022 02/03/2023 hydroCHLOROthiazid e (HYDRODIURIL) 25 mg tablet Take 1 Tablet by mouth daily. 30 Tablet 10/28/2022 10/28/2022 documented in this encounter Miscellaneous Notes * Telephone Encounter - Grace Eubanks, BALTA - 10/28/2022 1209 EST JALEN - 08/13/21Aug - 11/18/22 last BMP - 10/10/22 Given 90-day extension on 07/24/22 d/t overdue labs, MyChart msg was sent at that time notifying pt. Rx(s) escribed for 90 days NR. documented in this encounter Plan of Treatment Upcoming Encounters Date Type Department Care Team (Late st Contact Info) Description 11/11/2024 15:30 EST Office Visit [facility] Integrative Family Medicine [address] [address] Osbaldo Dewitt NP [address] [place] [address] documented as of this encounter Visit Diagnoses Not on filedocumented in this encounter Discontinued Medications Medication Sig Discontinue Reason Start Date End Da te hydroCHLOROthiazide (HYDRODIURIL) 25 mg tablet TAKE ONE TABLET BY MOUTH EVERY DAY 07/24/2022 10/28/2022 hydroCHLOROthiazide (HYDRODIURIL) 25 mg tablet Take 1 Tablet by mouth daily. Reorder 10/28/2022 10/28/2022 documented as of this encounter Care Teams Plate Worker Helper Relationship Specialty Start Date End Date Osbaldo Dewitt NP [address] [place] [address] PCP - General 09/01/19 documented as of this encounter
--- OUTSIDE RECORDS SUMMARY | 2024-09-30 00:20 | XMS_ITS | Encounter Summary ---
Author Organization 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 No / Unsure 02/20/2021 11:20 EDT documented as of this encounter Plan of Treatment Upcoming Encounters Date Type Department Care Team (Late st Contact Info) Description 11/11/2024 15:[address] [facility] Integrative Family [facility] [address] [place] [address] Osbaldo Dewitt NP [address] [place] [address] documented as of this encounter Visit Diagnoses Not on filedocumented in this encounter Care Teams Assembly Line Leader Relationship Specialty Start Date End Date Osbaldo Dewitt NP [address] [place] [address] PCP - General 09/01/19 documented as of this encounter
--- OUTSIDE RECORDS SUMMARY | 2024-09-30 00:21 | XMS_ITS | Encounter Summary ---
Author Organization [facility] Address [address] [place] [address] Care Team Providers Care Automatic Drilling Machine Operator Name Role Phone Unknown, Provider Primary Care Provider Unava ilable Encounter Details Date Type Department Care Team (Late st Contact Info) Description 10/25/2014 Results Only [facility] [phone] Lyudmila Contreras NP [address] [place] [address] Social History Tobacco Use Types Packs/Day Years Used Date Smoking Tobacco: Never Assessed Comments Unknown Sex and Gender Information Value Date Recorded Sex Assigned at Female 11/11/2022 11:31 EST Legal Sex Female 18:16 EST Gender Identity Female 11/11/2022 11:31 EST Sexual Orientation Straight 11/11/2022 11 :31 EST documented as of this encounter Plan of Treatment Upcoming Encounters Date Type Department Care Team (Late st Contact Info) Description 11/11/2024 15:30 EST Office Visit [facility] Integrative Family Medicine [facility] [address] [place], [place] [id number] Osbaldo Dewitt NP [address] [place] [address] documented as of this encounter Procedures Procedure Name Priority Date/Time Associated Diagnosis Comments SURGICAL PATHOLOGY Routine 10/25/2014 9:00 EST documented in this encounter Results * SURGICAL PATHOLOGY (10/25/2014 9:00 EST) Pathology Report: SURGICAL PATHOLOGY REPORT Reports generated via electronic interface contain original data; however they are lacking the format of the original report. Caution should be taken when reading/interpret ing unformatted reports. Name: ? SANDIE DUVALL ? Accession #: ? [id number] ? : ? 1960 (Age: 54) ??F ? Collect Date: ? 10/25/2014 ? Location: ? [facility] ? Receive Date: ? 10/26/2014 ? Provider: LYUDMILA CONTRERAS NP Copy to: ? Final Pathologic Diagnosis: SKIN OF THIGH, LEFT ANTERIOR PROXIMAL, SHAVE BIOPSY: - Dermatofibroma. ?? - Lesion extends to base of biopsy specimen. ?? Microscopic Description: There is irregular epidermal hyperplasia with basal hyperpigmentation . ??Within the dermis, there is a spindle cell proliferation accompanied by histiocytes. The spindle cells have plump nuclei that vary to a mild degree in size and shape. ??The proliferation is associated with thick bundles of collagen (collagen trapping) and areas of sclerosis. ??(Dr. Mckinney)/ljn Document reviewed and electronically signed by: ZEUS MCKINNEY MD Report ??Date: 10/27/2014 15:49 By the signature above, the attending physician certifies that he/she has personally conducted a gross and/or microscopic examination of the described specimens and rendered or confirmed the above diagnosis. Specimen(s) Received: Left anterior proximal thigh shave biopsy Clinical History: Papule and slowly changing 6.0 x 4.0 (no unit of measurement given) firm pink papule; DDx: Neoplasm of uncertain behavior vs atypical nevus, dermatofibroma, Spitz; clinical diagnosis code: ??238.2 Gross Description: ? Received in formalin labelled with proper patient identification (initials M, P) and left anterior proximal thigh is a shave biopsy of pink-norwood skin (0.9 x 0.6 x 0.1 cm). There is a central norwood-brown papule with ill-defined borders that measures 0.6 x 0.5 x 0.1 cm. ??Trisected and submitted in 1. Cameron Noe 10/26/2014 09:18 AM End of Report [facility] 10/25/2014 9:00 EST 10/26/2014 9:00 EST us Lyudmila Contreras NP PATHOLOGY ORDERABLES Final Resu lt [facility] [address] [place] [address] documented in this encounter Visit Diagnoses Not on filedocumented in this encounter Care Teams Automatic Drilling Machine Operator Relationship Specialty Start Date End Date Unknown, Provider, PCP - General 07/18/14 08/31/19 documented as of this encounter
--- OUTSIDE RECORDS SUMMARY | 2024-09-30 00:21 | XMS_ITS | Encounter Summary ---
Author Organization [facility] Address [address] [place] [address] Care Team Providers Care Logging Worker Name Role Phone Osbaldo Dewitt NP Primary Care Provider [phone] Reason for Visit * Reason Comments Other Encounter Details Date Type Department Care Team (Late st Contact Info) Description 02/03/2020 Ref[place] [facility] [place] [address] [address] Osbaldo Dewitt NP [address] [place] [address] Other Social History Tobacco Use Types Packs/Day Years Used Date Smoking Tobacco: Former Smokeless Tobacco: Never Comments Unknown Sex and Gender Information Value Date Recorded Sex Assigned at Female 11/11/2022 11:31 EST Legal Sex Female 18:16 EST Gender Identity Female 11/11/2022 11:31 EST Sexual Orientation Straight 11/11/2022 11 :31 EST documented as of this encounter Ordered Prescriptions Prescription Sig Dispense Quantity Refills Last Filled Start Date End Date losartan-hydrochlo rothiazide (HYZAAR) 100-25 mg per tablet TAKE ONE TABLET BY MOUTH EVERY DAY 90 Tab 02/03/2020 05/12/2020 documented in this encounter Miscellaneous Notes * Telephone Encounter - Grace Wright, RN - 02/03/2020 1306 EDT JALEN - 11/09/19 NOV - 05/09/20 last BMP - 10/23/18 Rx(s) escribed to pharmacy. GRACE WRIGHT, RN documented in this encounter Plan of Treatment Upcoming Encounters Date Type Department Care Team (Late st Contact Info) Description 11/11/2024 15:30 EST Office Visit [facility] Family [address] [address] Osbaldo Dewitt NP [address] [place] [address] documented as of this encounter Visit Diagnoses Not on filedocumented in this encounter Discontinued Medications Medication Sig Discontinue Reason Start Date End Da te losartan (COZAAR) 100 mg tabletIndications:Hyperte nsion, unspecified type Take 1 Tab by mouth daily. 11/02/2019 02/03/2020 hydroCHLOROthiazide (HYDRODIURIL) 25 mg tabletIndications:Hyperte nsion, unspecified type Take 1 Tab by mouth daily. 11/09/2019 02/03/2020 documented as of this encounter Care Teams Logging Worker Relationship Specialty Start Date End Date Osbaldo Dewitt NP [address] [place] [address] PCP - General 09/01/19 documented as of this encounter
--- OUTSIDE RECORDS SUMMARY | 2024-09-30 00:21 | XMS_ITS | Encounter Summary ---
Author Organization [facility] Address [address] [place] [address] Care Team Providers Care Counselor Manager Name Role Phone Unknown, Provider Primary Care Provider Unava ilable Encounter Details Date Type Department Care Team (Late st Contact Info) Description 07/02/2017 Historical Results Only [facility] [place] [address] [place] [address] Osbaldo Dewitt NP [address] [place], [place] [id number] Social History Tobacco Use Types Packs/Day Years [...] Info) Description 11/11/2024 15:30 EST Office Visit [facility] Integrative Family Medicine [address] [address] Osbaldo Dewitt NP [address] [place] [address] documented as of this encounter Procedures Procedure Name Priority Date/Time Associated Diagnosis Comments COMPREHENSIVE METABOLIC PANEL (CMP) Routine 07/02/2017 8:38 EDT documented in this encounter Results * COMPREHENSIVE METABOLIC PANEL (CMP) (07/02/2017 8:38 EDT) Albumin % 3.6 3.4 - 5.0 g/dL 07/02/2017 9:50 [facility] ALKALINE PHOSPHATASE - [facility] 72 41 - 126 U/L 07/02/2017 9:50 [facility] BILIRUBIN TOTAL 0.4 0.0 - 1.0 mg/dL 07/02/2017 9:50 [facility] BUN - [facility] 13 7 - 18 mg/dL 07/02/2017 9:50 [facility] CALCIUM - [facility] 9.2 8.5 - 10.1 mg/dL 07/02/2017 9:50 [facility] Chloride 107 98 - 107 mEq/L 07/02/2017 9:50 [facility] CO2 Total 27 21 - 32 mEq/L 07/02/2017 9:50 [facility] CREATININE 0.61 0.5 - 1.3 mg/dL 07/02/2017 9:50 [facility] eGFR >60 07/02/2017 9:50 [facility] Comment: Chronic renal impairment is defined as GFR <60 Multiply result by 1.210 for patients. eGFR calculated using the IDMS-traceable MDRD Study Equation. ??(effective 08/08/2014) Anion Gap 8 5 - 15 07/02/2017 9:50 [facility] GLUCOSE - [facility] 92 70 - 100 mg/dL 07/02/2017 9:50 [facility] Potassium 4.0 3.5 - 5.0 mEq/L 07/02/2017 9:50 [facility] Sodium 142 135 - 145 mEq/L 07/02/2017 9:50 [facility] TOTAL PROTEIN - [facility] 7.3 6.4 - 8.2 gm/dl 07/02/2017 9:50 EDT [facility] SGOT/AST - [facility] 23 10 - 37 U/L 07/02/2017 9:50 EDT [facility] SGPT/ALT - [facility] 26 12 - 78 U/L 07/02/2017 9:50 EDT [facility] 07/02/2017 8:38 EDT 07/02/2017 8:38 EDT Narrative [facility] - 07/02/2017 9:50 EDT Does PT Have a Latex Allergy? NO us Osbaldo Dewitt NP CHEMISTRY & BLOOD GAS ORDERABL ES Final Result [facility] documented in this encounter Visit Diagnoses Not on filedocumented in this encounter Care Teams Counselor Manager Relationship Specialty Start Date End Date Unknown, Provider, PCP - General 07/18/14 08/31/19 documented as of this encounter
--- OUTSIDE RECORDS SUMMARY | 2024-09-30 00:21 | XMS_ITS | Encounter Summary ---
Author Organization [facility] Address [address] [place] [address] Care Team Providers Care Director Of Construction Name Role Phone Osbaldo Dewitt NP Primary Care Provider [phone] Reason for Visit * Reason Comments Annual Exam Encounter Details Date Type Department Care Team (Late st Contact Info) Description 12/05/2020 17:00 EST Office Visit [facility] [address] [place] [address] Osbaldo Dewitt NP [address] [place] [address] Encounter for annual physical exam (Primary Dx); Need for shingles vaccine; Neck pain; Essential hypertension; Seasonal allergic rhinitis, unspecified trigger; Cronin's esophagus without dysplasia; Anxiety; Obesity (BMI 30.0-34.9) Social History Tobacco Use Types Packs/Day Years [...] 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 No / Unsure 12/05/2020 16:49 EST documented as of this encounter Last Filed Vital Signs Vital Sign Reading Time Taken Comments Blood Pressure 116/64 12/05/2020 1653 EST Pulse 67 12/05/2020 1653 EST Temperature - - Respiratory Rate 16 12/05/2020 1653 EST Oxygen Saturation 97% 12/05/2020 1653 EST Inhaled Oxygen Concentration - - Weight 105.7 kg (233 lb) 12/05/2020 1653 EST Height 175.3 cm (5' 9.02) 12/05/2020 1653 EST Body Mass Index 34.39 12/05/2020 1653 EST documented in this encounter Ordered Prescriptions Prescription Sig Dispense Quantity Refills Last Filled Start Date End Date estradioL (ESTRACE) 0.01 % (0.1 mg/gram) vaginal cream Place 0.5 g vaginally twice a week. 1 Tube 3 12/07/2020 4 documented in this encounter Progress Notes * Osbaldo Dewitt, SCHOOL PSYCHOLOGY SPECIALIST - 12/05/2020 1700 EST Images from the original note were not included. [facility] Preventive Service Visit Subjective: HPI: The 60 y.o. female presents for a routine check-up and exam. Overall, doing well in general. CONCERNS: 1. Allergies - uses becky, switches with claritin every 6 months. Endorses PND. Uses flonase but only in the summer. 2. Shoulder and neck pain, uncomfortable at night. Pain radiates from neck down her bilateral arms,pain with carrying heavy items, lifting arms above her head, lateral rotation also with pain in left shoulder with internal rotation. Using ibuprofen 400mg at bedtime. 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 The retrolisthesis at C3-4 and the anterolisthesis at C6-7 are preserved on both flexion and extension. She completed PT with benefit. Hypertension Managed with hydrochlorothiazide/losarten 25 mg/100 mg QD and atenolol 25 mg QD. Medication adherence is good. Denies chest pain, shortness of breath, new onset edema. ?? GI Hx of Cronin esophagus, last EGD 10/04/[address] Romero showed chronic inflammation but no metaplasia or dysplasia. She has had 3 normal consecutive endoscopies, he recommends repeat only if symptomatic, pt prefers every 5 years. Managed on [id number] QD. Rare breakthrough sxs. ?? 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 Missed a dose last week, felt heart racing and anxiety that day. DIET & EXERCISE Diet: Logging calories through [employer] Exercise: no purposeful Behavioral Health Screen PHQ-2 Little interest or pleasure in doing things?: Not at all Feeling down, depressed, or hopeless?: Not at all PHQ-2 SUBTOTAL: 0 NHUNG-2 NHUNG-2 Subtotal: 0 NHUNG-7 NHUNG-7 Score Interpretation: Minimal Anxiety SASQ How many times in the past year have you had 4 or more drinks in a single day?: More than once AUDIT-10 How often do you have a drink containing alcohol?: 4 or more times/week How many drinks containing alcohol do you have on a typical day when you are drinking?: 1 or 2 How often do you have six or more drinks on one occasion?: never How often during the last year have you found that you were not able to stop drinking once you had started?: never How often during the last year have you failed to do what was normally expected of you because of drinking?: Never How often during the last year have you needed a first drink in the morning to get yourself going after a heavy drinking session?: never How often during the last year have you had a feeling of guilt or remorse after drinking?: never How often during the last year have you been unable to remember what happened the night before because of your drinking?: never Have you or someone else been injured because of your drinking?: No Has a relative, friend, doctor, or other health care worker been concerned about your drinking or suggested you cut down?: No AUDIT-10 TOTAL: 4 AUDIT Interpretation: Low-risk alcohol use. AUDIT Suggested Action: No further Action Prescription Misuse How many times in the past year have you used an illegal drug or used a prescription medication fornon-medical reasons?: Never Health Maintenance Topic Date Due ??? HIV Screening 1975 ??? Advance Directive 1977 ??? Pertussis (Adult) Immunization 1978 ??? Shingles Immunization (1 of 2) 2009 ??? Breast Cancer Screening 11/16/2020 ??? Social Determinants Of Health (SDOH) 12/05/2021 ??? Behavioral Health Screen 12/05/2021 ??? Cervical Cancer Screening 04/20/2022 ??? Preventive Care Visit 12/05/2022 ??? Lipid Profile Screening (Cholesterol) 10/23/2023 ??? Tetanus (Adult) Immunization 05/05/2024 ??? Colorectal Cancer Screening 09/05/2026 ??? Influenza Immunization (Adult) Completed CHRONIC HEALTH CONCERNS: Patient Active Problem List Diagnosis Date Noted ??? Anxiety 11/09/2019 Priority: Medium ??? Depression 11/09/2019 Priority: Medium ??? Insomnia 11/09/2019 Priority: Medium ??? Lichen sclerosus et atrophicus 11/09/2019 Priority: Medium ??? Menopausal syndrome (hot flashes) 11/09/2019 Priority: Medium ??? Postmenopause atrophic vaginitis 11/09/2019 Priority: Medium ??? Pure hypercholesterolemia 11/09/2019 Priority: Medium ??? Rosacea 11/09/2019 Priority: Medium ??? Seasonal allergic rhinitis 11/09/2019 Priority: Medium ??? Cronin esophagus 11/09/2019 Priority: Medium ??? Hypertension 11/02/2019 Priority: Medium GYNECOLOGIC HX: LMP: age 49 Menstrual cycles: postmenopausal Hx of abnormal pap: none OB History 0 Para 0 Term 0 0 AB 0 Living 0 SAB 0 TAB 0 Ectopic 0 Multiple 0 Live Births 0 Past Medical History: Diagnosis Date ??? GERD (gastroesophageal reflux disease) Ramy Fundoplication Past Surgical History: Procedure Laterality Date ??? GASTRIC FUNDOPLICATION 2009 Ramy-fundoplication at [facility] Family History Problem Relation Age of Onset ??? Dementia Mother ??? Coronary Artery Disease Father ??? Pacemaker Father ??? Hypertension Brother ??? Atrial fibrillation Brother ??? Colon Cancer Maternal Grandmother ??? Colon Cancer Maternal Grandfather ??? Aortic aneurysm Paternal Grandfather abdominal Social History Tobacco Use ??? Smoking status: Former Smoker Years: 2.00 ??? Smokeless tobacco: Never Used Substance Use Topics ??? Alcohol use: Yes Alcohol/week: 14.0 standard drinks Types: 14 Glasses of wine per week Frequency: 4 or more times a week Drinks per session: 1 or 2 ??? Drug use: Never Current Outpatient Medications on File Prior to Visit Medication Sig Dispense Refill ??? atenolol (TENORMIN) 25 mg tablet Take 1 Tab by mouth daily. ??? cholecalciferol, Vitamin D3, 1,000 unit tablet Take 1,000 Units by mouth daily. ??? clobetasoL (TEMOVATE) 0.05 % cream Apply topically once a week prn 30 g 3 ??? doxycycline (PERIOSTAT) 20 mg tablet TAKE TWO TABLETS BY MOUTH EVERY DAY 180 Tab 3 ??? fexofenadine (BECKY ALLERGY) 180 mg tablet Take 1 Tab by mouth daily. ??? fluticasone propionate (FLONASE) 50 mcg/actuation nasal spray Instill 2 Sprays into both nostrils daily as needed. ??? glucosamine sulfate 500 mg capsule Take 2 Caps by mouth daily. ??? losartan-hydrochlorothiazide (HYZAAR) 100-25 mg per tablet TAKE ONE TABLET BY MOUTH EVERY DAY 90 Tab 0 ??? omeprazole (PRILOSEC) 20 mg capsule TAKE ONE CAPSULE BY MOUTH AT BEDTIME 90 Cap 3 ??? venlafaxine (EFFEXOR-XR) 37.5 mg XR capsule TAKE ONE CAPSULE BY MOUTH EVERY DAY 90 Cap 3 No current facility-administered medications on file prior to visit. ROS: Review of Systems Musculoskeletal: Positive for arthralgias and neck pain. Psychiatric/Behavioral: Negative. I have reviewed patient's medication list, past medical history, social history, and family historyand updated as appropriate on 12/05/2020. Objective: Examination: Vitals: BP 116/64 Pulse 67 Resp 16 Ht 175.3 cm (69.02) Wt (!) 105.7 kg (233 lb) SpO2 97% BMI 34.39 kg/m?? Body mass index is 34.39 kg/m??. Physical Exam Constitutional: General: She is not in acute distress. Appearance: She is well-developed. She is not diaphoretic. HENT: Head: Normocephalic and atraumatic. Right Ear: External ear normal. Left Ear: External ear normal. Eyes: Conjunctiva/sclera: Conjunctivae normal. Pupils: Pupils are equal, round, and reactive to light. Neck: Musculoskeletal: Normal range of motion and neck supple. Thyroid: No thyromegaly. Vascular: No carotid bruit. Cardiovascular: Rate and Rhythm: Normal rate and regular rhythm. Heart sounds: Normal heart sounds. No murmur. Pulmonary: Effort: Pulmonary effort is normal. Breath sounds: Normal breath sounds. Abdominal: General: Bowel sounds are normal. There is no distension. Palpations: Abdomen is soft. Tenderness: There is no abdominal tenderness. Musculoskeletal: Normal range of motion. General: No deformity. Lymphadenopathy: Cervical: No cervical adenopathy. Skin: General: [...] or any previous visit (from the past 2016 hour(s)). Assessment & Plan: Sandie was seen today for annual exam. Diagnoses and all orders for this visit: Encounter for annual physical exam - MA BREAST SCREENING JULIAN BILATERAL; Future - LIPID PROFILE (INCLUDES CHOLESTEROL, TRIGLYCERIDES, HDL, LDL); Future - COMPREHENSIVE METABOLIC PANEL (CMP); Future Need for shingles vaccine Comments: Deferred until after COVID-19 vaccination Neck pain Comments: Will repeat x-ray and refer for physical therapy. Consider follow-up with spine medicine depending on progression noted on imaging. Orders: - XR CERVICAL SPINE 4-5 VIEWS; Future - AMB CONS/FOLLOW UP PHYSICAL THERAPY; Future Essential hypertension Comments: Within goal. Check routine labs. Continue current medications. Seasonal allergic rhinitis, unspecified trigger Comments: Advise switch to Zyrtec 10 mg daily and restarting steroid nasal spray. Cronin's esophagus without dysplasia Comments: Stable. Continue daily PPI. EGD due 2023. Anxiety Comments: Stable. Continue Effexor 37.5 mg daily. Obesity (BMI 30.0-34.9) Comments: Continue efforts at calorie counting and increasing daily exercise. Other orders - estradioL (ESTRACE) 0.01 % (0.1 mg/gram) vaginal cream; Place 0.5 g vaginally twice a week. Blood pressure and BMI goals reviewed. Immunizations reviewed, encouraged COVID 19 vaccination - will be eligible next week. Fasting lipid and blood glucose ordered. Mammogram screening ordered. Screening colonoscopy due 2025. DEXA due age 64. Pap/HPV screening due 2021. Discussed safety prevention measures, Calcium/Vit D recommendations, healthy diet and exercise goals, healthy ETOH use. Follow up: Return in about 6 months (around 06/07/2021) for hypertension. Osbaldo Dewitt APRN documented in this encounter Plan of Treatment Upcoming Encounters Date Type Department Care Team (Late st Contact Info) Description 11/11/2024 15:30 EST Office Visit [facility] [address] [address] Osbaldo Dewitt SUSTAINABILITY ENGINEER [address] [place] [address] documented as of this encounter Visit Diagnoses Diagnosis Encounter for annual physical exam- Primary Need for shingles vaccine Need for prophylactic vaccination and inoculation against other viral diseases Neck pain Cervicalgia Essential hypertension Unspecified essential hypertension Seasonal allergic rhinitis, unspecified trigger Cronin's esophagus without dysplasia Cronin's esophagus Anxiety Anxiety state, unspecified Obesity (BMI 30.0-34.9) Obesity, unspecified documented in this encounter Discontinued Medications Medication Sig Discontinue Reason Start Date End Da te estradiol (ESTRACE) 0.01 % (0.1 mg/gram) vaginal cream Place 0.5 g vaginally SEE ADMIN INSTRUCTIONS. twice weekly prn Reorder 12/05/2020 documented as of this encounter Care Teams Director Of Construction Relationship Specialty Start Date End Date Osbaldo Dewitt NP [address] [place] [address] PCP - General 09/01/19 documented as of this encounter
--- OUTSIDE RECORDS SUMMARY | 2024-09-30 00:21 | XMS_ITS | Encounter Summary ---
Author Organization [facility] Address [address] [place] [address] Care Team Providers Care Planogrammer Name Role Phone Osbaldo Dewitt NP Primary Care Provider [phone] Reason for Visit * Reason Comments Other Encounter Details Date Type Department Care Team (Late st Contact Info) Description 10/15/2020 Refill [facility] [address] [place] [address] Osbaldo Dewitt NP [address] [place] [address] Other Social History Tobacco Use Types Packs/Day Years Used Date Smoking Tobacco: Former Smokeless Tobacco: Never Interpersonal Safety Answer Date Record ed Physically Hurt Never 05/07/2020 Verbally Threaten Not on file 05/07/2020 Comments Unknown Sex and Gender Information Value [...] BY MOUTH AT BEDTIME 90 Cap 3 10/16/2020 2 documented in this encounter Miscellaneous Notes * Telephone Encounter - Grace Wright, RN - 10/16/2020 1058 EST JALEN - 11/09/19 NOV - none Rx(s) escribed to pharmacy. GRACE WRIGHT, RN documented in this encounter Plan of Treatment Upcoming Encounters Date Type Department Care Team (Late st Contact Info) Description 11/11/2024 15:30 EST Office Visit [facility] [address] [address] Osbaldo Dewitt NP [address] [place] [address] documented as of this encounter Visit Diagnoses Diagnosis Gastroesophageal reflux disease- Primary Esophageal reflux documented in this encounter Discontinued Medications Medication Sig Discontinue Reason Start Date End Da te omeprazole (PRILOSEC) 20 mg capsuleIndications:Gastr oesophageal reflux disease, esophagitis presence not specified TAKE ONE CAPSULE BY MOUTH AT BEDTIME 09/30/2019 10/16/2020 documented as of this encounter Care Teams Planogrammer Relationship Specialty Start Date End Date Osbaldo Dewitt NP [address] [place] [address] PCP - General 09/01/19 documented as of this encounter
--- OUTSIDE RECORDS SUMMARY | 2024-09-30 00:21 | XMS_ITS | Encounter Summary ---
Author Organization [facility] Address [address] [place] [address] Care Team Providers Care Director Foundation Name Role Phone Osbaldo Dewitt SWITCH REPAIRER Primary Care Provider [phone] Encounter Details Date Type Department Care Team (Late st Contact Info) Description 10/02/2019 Abstract [facility] Primary Care - [address] [address] Ambulatory, Doubler Helper Social History Tobacco Use Types Packs/Day Years [...] Info) Description 11/11/2024 15:30 EST Office Visit [facility] [address] [place], [place] [id number] Osbaldo Dewitt, SWITCH REPAIRER [address] [place] [address] documented as of this encounter Visit Diagnoses Not on filedocumented in this encounter Historical Medications * This list may reflect changes made after this encounter. fluticasone propionate (FLONASE) 50 mcg/actuation nasal spray Instill 2 Sprays into both nostrils daily as needed. 02/02/2015 estradiol (ESTRACE) 0.01 % (0.1 mg/gram) vaginal cream Place 0.5 g vaginally SEE ADMIN INSTRUCTIONS. twice weekly prn 1 glucosamine sulfate 500 mg capsule Take 2 Caps by mouth daily. 3 atenolol (TENORMIN) 25 mg tablet Take 1 Tab by mouth daily. 1 cephALEXin (KEFLEX) 500 mg capsule Take 1 Cap by mouth 3 times daily. 04/20/2019 0 losartan-hydroch lorothiazide (HYZAAR) 100-25 mg per tablet Take 1 Tab by mouth daily. 0 venlafaxine (EFFEXOR XR) 37.5 mg XR capsule Take 1 Cap by mouth daily. 11/26/2016 0 clobetasol (TEMOVATE) 0.05 % cream Apply 1 application topically SEE ADMIN INSTRUCTIONS. once a week prn 06/04/2016 1 doxycycline (PERIOSTAT) 20 mg tablet Take 2 Tabs by mouth daily. 0 doxycycline (VIBRA-TABS) 100 mg tablet Take 1 Tab by mouth 2 times daily. 04/27/2019 0 fexofenadine (LAKESHA ALLERGY) 180 mg tablet Take 1 Tab by mouth daily. 1 added in this encounter Care Teams Director Foundation Relationship Specialty Start Date End Date Osbaldo Dewitt NP [address] [place] [address] PCP - General 09/01/19 documented as of this encounter
--- OUTSIDE RECORDS SUMMARY | 2024-09-30 00:21 | XMS_ITS | Encounter Summary ---
Author Organization [facility] Address [address] [place] [address] Care Team Providers Care Combination Technician Name Role Phone Osbaldo Dewitt WOUND CARE NURSE Primary Care Provider [phone] Encounter Details Date Type Department Care Team (Late st Contact Info) Description 10/04/2019 Results Only [facility] [place] [address] [place] [address] Bird Watkins MD Social History Tobacco Use Types Packs/Day Years [...] Info) Description 11/11/2024 15:30 EST Office Visit [facility] [address], [place] [id number] Osbaldo Dewitt NP [address] [place] [address] documented as of this encounter Procedures Procedure Name Priority Date/Time Associated Diagnosis Comments SURGICAL PATHOLOGY Routine 10/04/2019 documented in this encounter Results * SURGICAL PATHOLOGY (10/04/2019) 10/04/2019 10/04/2019 10: 36 EST Narrative [facility] - 10/05/2019 10:05 EST ----- ------- Name: SANDIE DUVALL ? : [birth year] ?Age/Sex: 59/F ?Unit#: [id number] ? Loc: END ? Status: DEP CLI ?? Reg Date: 10/04/19 ? Pt.Phone Number: ? ----- ------- Specimen: [id number] ? STATUS: SOUT ?Spec Date:10/04/19 ? Physician Copies: ?Bird Watkins MD ?? Tissues: A ?? Endoscopy specimen (GE JUNCTION) ? Osbaldo Dewitt ? CPT: 26476 ?? Units: ??1 ?FINAL DIAGNOSIS ? GASTROESOPHAGEAL JUNCTION, BIOPSY; ? - Junctional mucosa with mild chronic inflammation. ? - Negative for intestinal metaplasia and dysplasia. ? GROSS DESCRIPTION ? Received in formalin labeled Sandie Duvall and bx's at GE junction are ? four mucosal tissue fragments ranging in size from 0.3 to 0.4 cm, e.s. 1. ??KF ?? PREOP DX/CLINICAL HISTORY ?History of Cronin's, reflux Signed ____(signature on file)____ Owen Diego 10/05/19 ? By the signature above, the attending physician certifies that he/she has personally conducted a gross and/or microscopic examination of the described specimens and rendered or confirmed the above diagnosis. Test Performed by [facility], [address] [place] [address] Pre Billing Specialist: Ewa Glvoer MD PHD ----- ------- us Bird Watkins MD PATHOLOGY ORDERABLES Final Re sult [facility] documented in this encounter Visit Diagnoses Not on filedocumented in this encounter Care Teams Combination Technician Relationship Specialty Start Date End Date Osbaldo Dewitt WOUND CARE NURSE [address] [place] [id number] PCP - General 09/01/19 documented as of this encounter
--- OUTSIDE RECORDS SUMMARY | 2024-09-30 00:21 | XMS_ITS | Encounter Summary ---
Author Organization [facility] Address [address] [place] [address] Care Team Providers Care Greaser And Oiler Name Role Phone Unknown, Provider Primary Care Provider Unava ilable Encounter Details Date Type Department Care Team (Late st Contact Info) Description 05/13/2017 Historical Results Only [facility] Radiology Results [address] [place] [address] Mellisa Sweeney NP [address] [place] [address] [place] [phone] Social History Tobacco Use Types Packs/Day Years [...] Office Visit [facility] [address] [place] [address] Osbaldo Dewitt NP [address] [place] [address] documented as of this encounter Procedures Procedure Name Priority Date/Time Associated Diagnosis Comments XR CERVICAL SPINE 6 OR MORE VIEWS 05/13/2017 9:10 EDT documented in this encounter Results * XR CERVICAL SPINE 6 OR MORE VIEWS (05/13/2017 9:10 EDT) Anatomical Region Laterality Modality Other 05/13/2017 9:10 EDT Narrative 05/13/2017 9:13 EDT ? EXAM: RADIOLOGY/CERVICAL SPINE + FLEX ?? E EX. D/ (0832) ? CLINICAL INFORMATION: ? NECK PAIN M54.2 ? CERVICAL SPINE + FLEX ?? EXT 05/13/2017 8:32 AM ? Signs and Symptoms: NECK PAIN NECK PAIN M54.2 ? Comparisons: None ? Findings: ? AP, neutral lateral, lateral flexion, and lateral extension views of ? the cervical spine were performed. ? All 7 cervical vertebral bodies are well seen. Vertebral body heights ? are preserved. On the neutral lateral radiographs, there is grade 1 ? anterolisthesis of C3 on C4, C4 on C5, C5 on C6, and C6 on C7. There ? is grade 1 retrolisthesis of C3 on C4. No fracture or destructive ? bony lesion is identified. The disc spaces are mildly narrowed with ? anterior osteophyte formation at C4-5, C5-6, and C6-7. Vertebral body ? heights are preserved. There is diffuse facet arthropathy evident ? more pronounced inferiorly within the cervical spine. What is likely ? degenerative bony fusion is noted at the C2-3 space. Multilevel ? uncovertebral arthrosis is evident. There is no swelling of the ? precervical soft tissues. The lung apices appear clear. ? There is degenerative arthrosis at the atlantodental joint. There is ? no evidence of dynamic instability at that level. ? C3-4 retrolisthesis is preserved with flexion and extension. C4-5 ? anterolisthesis is lost on the extended lateral radiographs. C5-6 ? anterolisthesis is lost on the extended lateral radiographs. C6-7 ? anterolisthesis is preserved on the extended lateral radiographs. ? Impression: ? 1. ??Mild multilevel degenerative disc disease of the cervical spine ? with severe facet arthrosis. ? 2. ??There is evidence of dynamic instability at C4-5 and C5-6, with ? grade 1 anterolisthesis seen on flexed and neutral lateral ? radiographs no longer evident on the extended lateral radiographs. ? The retrolisthesis at C3-4 and the anterolisthesis at C6-7 are ? preserved on both flexion and extension. ? REPORT SIGNED IN OTHER VENDOR SYSTEM 05/13/2017 ?Reported By: Felipe Douglas MD ? CC: ? Transcribed Date/Time: 05/13/2017 (0913) ? Plumber And Tinner: ? Printed Date/Time: 03/23/2019 (1835) ? PAGE 1 ? Signed Report ? Procedure Note Felipe Douglas MD - 08/11/2019 EXAM: RADIOLOGY/CERVICAL SPINE + FLEX E EX. D/ (0832) CLINICAL INFORMATION: NECK PAIN M54.2 CERVICAL SPINE + FLEX EXT 05/13/2017 8:32 AM Signs and Symptoms: NECK PAIN NECK PAIN M54.2 Comparisons: None Findings: AP, neutral lateral, lateral flexion, and lateral extension viewsof the cervical spine were performed. All 7 cervical vertebral bodies are well seen. Vertebral bodyheights are preserved. On the neutral lateral radiographs, there is grade 1 anterolisthesis of C3 on C4, C4 on C5, C5 on C6, and C6 on C7.There is grade 1 retrolisthesis of C3 on C4. No fracture or destructive bony lesion is identified. The disc spaces are mildly narrowed with anterior osteophyte formation at C4-5, C5-6, and C6-7. Vertebralbody heights are preserved. There is diffuse facet arthropathy evident more pronounced inferiorly within the cervical spine. What islikely degenerative bony fusion is noted at the C2-3 space. Multilevel uncovertebral arthrosis is evident. There is no swelling of the precervical soft tissues. The lung apices appear clear. There is degenerative arthrosis at the atlantodental joint. Thereis no evidence of dynamic instability at that level. C3-4 retrolisthesis is preserved with flexion and extension. C4-5 anterolisthesis is lost on the extended lateral radiographs. C5-6 anterolisthesis is lost on the extended lateral radiographs. C6-7 anterolisthesis is preserved on the extended lateral radiographs. Impression: 1. Mild multilevel degenerative disc disease of the cervical spine with severe facet arthrosis. 2. There is evidence of dynamic instability at C4-5 and C5-6, with grade 1 anterolisthesis seen on flexed and neutral lateral radiographs no longer evident on the extended lateral radiographs. The retrolisthesis at C3-4 and the anterolisthesis at C6-7 are preserved on both flexion and extension. REPORT SIGNED IN OTHER VENDOR SYSTEM 05/13/2017 Reported By: Felipe Douglas MD CC: Transcribed Date/Time: 05/13/2017 (0913) Plumber And Tinner: Printed Date/Time: 03/23/2019 (9006) PAGE 1 Signed Report Mellisa Sweeney NP IMG DIAGNOSTIC IMAGING ORDERA BLES Final Result documented in this encounter Visit Diagnoses Not on filedocumented in this encounter Care Teams Greaser And Oiler Relationship Specialty Start Date End Date Unknown, Provider, PCP - General 07/18/14 08/31/19 documented as of this encounter
--- OUTSIDE RECORDS SUMMARY | 2024-09-30 00:21 | XMS_ITS | Encounter Summary ---
Author Organization [facility] Address [address] [place] [address] Care Team Providers Care Therapeutic Riding Instructor Name Role Phone Osbaldo Dewitt NP Primary Care Provider [phone] Reason for Visit * Reason Comments Other Encounter Details Date Type Department Care Team (Late st Contact Info) Description 12/13/2020 Refill 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 No / Unsure 12/05/2020 16:49 EST documented as of this encounter Ordered Prescriptions Prescription Sig Dispense Quantity Refills Last Filled Start Date End Date losartan-hydrochlo rothiazide (HYZAAR) 100-25 mg per tabletIndications: Essential hypertension TAKE ONE TABLET BY MOUTH EVERY DAY 30 Tab 3 12/13/2020 04/16/2021 documented in this encounter Miscellaneous Notes * Telephone Encounter - Grace Wright RN - 12/13/2020 1112 EST JALEN - 12/05/20 NOV - none last BMP - 10/23/18; ordered 12/05/20 Rx(s) escribed to pharmacy. GRACE WRIGHT, RN documented in this encounter Plan of Treatment Upcoming Encounters Date Type Department Care Team (Late st Contact Info) Description 11/11/2024 15:[address] [facility] [address] [id number] Osbaldo Dewitt NP [address] [place] [phone] documented as of this encounter Visit Diagnoses Diagnosis Essential hypertension- Primary Unspecified essential hypertension documented in this encounter Discontinued Medications Medication Sig Discontinue Reason Start Date End Da te losartan-hydrochlorothia zide (HYZAAR) 100-25 mg per tablet TAKE ONE TABLET BY MOUTH EVERY DAY 05/12/2020 12/13/2020 documented as of this encounter Care Teams Therapeutic Riding Instructor Relationship Specialty Start Date End Date Osbaldo Dewitt NP [address] [place] [phone] PCP - General 09/01/19 documented as of this encounter
--- OUTSIDE RECORDS SUMMARY | 2024-09-30 00:21 | XMS_ITS | Encounter Summary ---
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 No / Unsure 12/05/2020 16:49 EST documented as of this encounter Plan of Treatment Upcoming Encounters Date Type Department Care Team (Late st Contact Info) Description 11/11/2024 15:30 EST Office Visit [facility] [address] [place] [address] Osbaldo Dewitt, MIRROR MACHINE FEEDER [address] [place] [address] documented as of this encounter Procedures Procedure Name Priority Date/Time Associated Diagnosis Comments MA BREAST SCREENING JULIAN BILATERAL 12/15/2020 15:14 EST XR CERVICAL SPINE 4-5 VIEWS 12/15/2020 8:36 EST documented in this encounter Results * MA BREAST SCREENING JULIAN BILATERAL (12/15/2020 15:14 EST) Anatomical Region Laterality Modality Breast Bilateral Mammography 12/15/2020 15:1 3 EST Narrative 12/15/2020 15:14 EST ? EXAM: MAMMOGRAM/MAMMO BILATERAL SCREEN W ??EX. D/ (0758) ? CLINICAL INFORMATION: ? Z12.31 SCREENING ? INDICATION: Z12.31 SCREENING SCREENING, 2019, NECK PAIN,Z00.00 ? COMPARISON: ??Comparison has been made to previous images. ? TECHNIQUE: ??Full field digital whole breast 2D (C-view) and 3D CC and ? MLO views of both breasts were obtained. CAD technology was utilized. ? FINDINGS: ??The fibroglandular patterns of the breasts are normal. ? There has been no change when compared to previous mammograms and ? there is no mammographic evidence of cancer. ??The breast tissue is ? almost entirely fatty. ? FINAL ASSESSMENT: ??BILATERAL BREAST - Category 1 - Negative. Routine ? mammographic follow-up is recommended. ? These results will be communicated to your patient via a lay letter ? from Radiology. ??If any additional imaging is needed we will contact ? your patient directly. ? REPORT SIGNED IN OTHER VENDOR SYSTEM 12/15/2020 ?Reported By: Chet De La O MD ? CC: ? Transcribed Date/Time: 12/15/2020 (151) ? Mining Support Worker: ? Printed Date/Time: 12/15/2020 (5765) ? PAGE 1 ? Signed Report ? Procedure Note Chet De La O MD - 12/15/2020 EXAM: MAMMOGRAM/MAMMO BILATERAL SCREEN W EX. D/ (0758) CLINICAL INFORMATION: Z12.31 SCREENING INDICATION: Z12.31 SCREENING SCREENING, 2019, NECK PAIN,Z00.00 COMPARISON: Comparison has been made to previous images. TECHNIQUE: Full field digital whole breast 2D (C-view) and 3D CCand MLO views of both breasts were obtained. CAD technology wasutilized. FINDINGS: The fibroglandular patterns of the breasts are normal. There has been no change when compared to previous mammograms and there is no mammographic evidence of cancer. The breast tissue is almost entirely fatty. FINAL ASSESSMENT: BILATERAL BREAST - Category 1 - Negative.Routine mammographic follow-up is recommended. These results will be communicated to your patient via a lay letter from Radiology. If any additional imaging is needed we willcontact your patient directly. REPORT SIGNED IN OTHER VENDOR SYSTEM 12/15/2020 Reported By: Chet De La O MD CC: Transcribed Date/Time: 12/15/2020 (1513) Mining Support Worker: Printed Date/Time: 12/15/2020 (7219) PAGE 1 Signed Report us Osbaldo Dewitt MIRROR MACHINE FEEDER IMG MAMMOGRAPHY ORDERABLES Fin al Result * XR CERVICAL SPINE 4-5 VIEWS (12/15/2020 8:36 EST) Anatomical Region Laterality Modality Left Computed Radiogr aphy 12/15/2020 8:33 EST Narrative 12/15/2020 8:36 EST ? EXAM: RADIOLOGY/CERVICAL SPINE 4 OR 5 VIE EX. D/ (0814) ? CLINICAL INFORMATION: ? M54.2 NECK PAIN ? NECK PAIN W/RADICULOPATHY ? INDICATION: M54.2 NECK PAIN, NECK PAIN W/RADICULOPATHY SCREENING, ? 2019, NECK PAIN,Z00.00 ? TECHNIQUE: 5 views cervical spine ? COMPARISON: 05/13/2017 ? FINDINGS: No acute fracture is detected. There is no abnormal ? prevertebral soft tissue swelling. Advanced multilevel facet ? arthrosis is present. There is moderate disc space narrowing at C5-C6 ? and mild disc space narrowing at C4-C5 and C6-C7. ? In the neutral position, there is approximately 2 mm retrolisthesis ? at C3-C4, trace anterolisthesis at C4-C5 and C5-C6 and 4 mm ? anterolisthesis at C6-C7. With flexion/extension, there is mild ? translational change at all levels with spondylolisthesis.. ? IMPRESSION: ? Advanced facet arthrosis with multilevel spondylolisthesis and mild ? translational change with flexion/extension. ? REPORT SIGNED IN OTHER VENDOR SYSTEM 12/15/2020 ?Reported By: Poncho Aguirre MD ? CC: ? Transcribed Date/Time: 12/15/2020 (0836) ? Mining Support Worker: ? Printed Date/Time: 12/15/2020 (0837) ? PAGE 1 ? Signed Report ? Procedure Note Poncho Aguirre MD - 12/15/2020 EXAM: RADIOLOGY/CERVICAL SPINE 4 OR 5 VIE EX. D/ (0814) CLINICAL INFORMATION: M54.2 NECK PAIN NECK PAIN W/RADICULOPATHY INDICATION: M54.2 NECK PAIN, NECK PAIN W/RADICULOPATHY SCREENING, 2019, NECK PAIN,Z00.00 TECHNIQUE: 5 views cervical spine COMPARISON: 05/13/2017 FINDINGS: No acute fracture is detected. There is no abnormal prevertebral soft tissue swelling. Advanced multilevel facet arthrosis is present. There is moderate disc space narrowing atC5-C6 and mild disc space narrowing at C4-C5 and C6-C7. In the neutral position, there is approximately 2 mm retrolisthesis at C3-C4, trace anterolisthesis at C4-C5 and C5-C6 and 4 mm anterolisthesis at C6-C7. With flexion/extension, there is mild translational change at all levels with spondylolisthesis.. IMPRESSION: Advanced facet arthrosis with multilevel spondylolisthesis and mild translational change with flexion/extension. REPORT SIGNED IN OTHER VENDOR SYSTEM 12/15/2020 Reported By: Poncho Aguirre MD CC: Transcribed Date/Time: 12/15/2020 (0836) Mining Support Worker: Printed Date/Time: 12/15/2020 (0837) PAGE 1 Signed Report us Osbaldo Dewitt NP IMG DIAGNOSTIC IMAGING ORDERAB LES Final Result documented in this encounter Visit Diagnoses Not on filedocumented in this encounter Care Teams Tax Examining Technician Relationship Specialty Start Date End Date Osbaldo Dewitt NP [address] [place] [id number] PCP - General 09/01/[address] [place] [address] Registered Dietitian Clinical Nutrition 10/21/23 documented as of this encounter
--- OUTSIDE RECORDS SUMMARY | 2024-09-30 00:21 | XMS_ITS | Encounter Summary ---
Author Organization [facility] Address [address] [place] [address] Care Team Providers Care Soft Water Mechanic Name Role Phone Unknown, Provider MD Primary Care Provider Unava ilable Encounter Details Date Type Department Care Team (Latest Contact Info) Description 11/13/2018 10:07 EST - 11/13/2018 23:59 EST Hospital Encounter [facility] [address] [place] [address] Unknown, Provider, Discharge Disposition: Home or Self Care Social History Tobacco Use Types Packs/Day Years Used Date Smoking Tobacco: Never Assessed Comments Unknown Sex and Gender Information Value Date Recorded Sex Assigned at Female 11/11/2022 11:31 EST Legal Sex Female 18:16 EST Gender Identity Female 11/11/2022 11:31 EST Sexual Orientation Straight 11/11/2022 11 :31 EST documented as of this encounter Medications at Time of Discharge fluticasone propionate (FLONASE) 50 mcg/actuation nasal spray Instill 2 Sprays into both nostrils daily as needed. 02/02/2015 clobetasol (TEMOVATE) 0.05 % cream Apply 1 application topically SEE ADMIN INSTRUCTIONS. once a week prn 06/04/2016 venlafaxine (EFFEXOR XR) 37.5 mg XR capsule Take 1 Cap by mouth daily. 11/26/2016 0 documented as of this encounter Discharge Disposition Disposition Code Departure Means Destination Home or Self Senior Living documented in this encounter Plan of Treatment Upcoming Encounters Date Type Department Care Team (Late st Contact Info) Description 11/11/2024 15:30 EST Office Visit [address] [phone] Osbaldo Dewitt NP [address] [place], [place] [phone] documented as of this encounter Visit Diagnoses Not on filedocumented in this encounter Care Teams Soft Water Mechanic Relationship Specialty Start Date End Date Unknown, Provider, PCP - General 07/18/14 08/31/19 documented as of this encounter
--- OUTSIDE RECORDS SUMMARY | 2024-09-30 00:21 | XMS_ITS | Encounter Summary ---
Author Organization [facility] Address [address] [place] [address] Care Team Providers Care Nurse Practitioner Hospitalist Name Role Phone Unknown, Provider Primary Care Provider Osbaldo Moralez NP Primary Care Provider [phone] Encounter Details Date Type Department Care Team (Late st Contact Info) Description 07/07/2014 Historical Results Only [facility] [address] [place], [place] [phone] Lesia Braden APRN [address] [place] [address] Social History Tobacco Use Types Packs/Day Years [...] [facility] [address] [place] [address] Osbaldo Dewitt, PAYROLL AND BENEFITS ANALYST [address] [place], [place] [phone] documented as of this encounter Procedures Procedure Name Priority Date/Time Associated Diagnosis Comments SURGICAL PATHOLOGY Routine 07/07/2014 documented in this encounter Results * SURGICAL PATHOLOGY (07/07/2014) 07/07/2014 07/07/2014 14: 00 EDT Narrative [facility] - 07/08/2014 11:55 EDT PREOP LICHEN SCLEROSIS Procedure: 6-0 LEFT VULVAR PUNCH BX Tissue Removed VULVAR PUNCH BX Clinical Hx: ITCHING BURNING VULVA X 1 YR, DEC MARKINGS ----- ------- Name: SANDIE DUVALL ? : [birth year] ?Age/Sex: 59/F ?Unit#: [id number] ? Loc: [facility] ? Status: REG POV ?? Reg Date: 07/07/14 ? Pt.Phone Number: ? ----- ------- Specimen: [id number] ? STATUS: SOUT ?Spec Date:07/07/14 ? Physician Copies: ?Lesia Braden Tissues: A ?? Female Reproductive System (VULVA) ? CPT: 19429 ?? Units: ??1 ?FINAL DIAGNOSIS ? Vulva, left, punch biopsy; ? - Lichen sclerosus. ----- ------- ?COMMENT ? Classic features of lichen sclerosus are present. ??No dysplasia identified. ? GROSS DESCRIPTION ? Received in formalin labeled with the patient's name is a piece of norwood- pink ? tissue measuring 0.6 x 0.4 x 0.3 cm, e.s. 1. ??CP ?? PREOP DX/CLINICAL HISTORY ?Lichen sclerosus Signed ____(signature on file)____ Ewa Glover M.D. 07/08/14 By the signature above, the attending physician certifies that he/she has personally conducted a gross and/or microscopic examination of the described specimens and rendered or confirmed the above diagnosis. Test Performed by [facility], [address] [place] [id number] Church Administrator: Ewa Glover MD PHD ----- ------- us Lesia Braden APRN PATHOLOGY ORDERABLES Fin al Result [facility] documented in this encounter Visit Diagnoses Not on filedocumented in this encounter Care Teams Nurse Practitioner Hospitalist Relationship Specialty Start Date End Date Unknown, Provider, PCP - General 07/18/14 08/31/19 Osbaldo Dewitt, PAYROLL AND BENEFITS ANALYST [address] [place], [place] [phone] PCP - General 09/01/19 documented as of this encounter
--- OUTSIDE RECORDS SUMMARY | 2024-09-30 00:21 | XMS_ITS | Encounter Summary ---
Author Organization [facility] Address [address] [place] [address] Care Team Providers Care Deep Submergence Vehicle Crewmember Name Role Phone Unknown, Provider Primary Care Provider Unava ilable Encounter Details Date Type Department Care Team (Late st Contact Info) Description 10/23/2018 Historical Results Only [facility] Lab - Main [place] [address] [place] [address] Osbaldo Dewitt NP [address] [place], [place] [id number] Social History Tobacco Use Types Packs/Day Years [...] Info) Description 11/11/2024 15:30 EST Office Visit [facility] Integrative Family Medicine [address] [address] Osbaldo Dewitt NP [address] [place] [address] documented as of this encounter Procedures Procedure Name Priority Date/Time Associated Diagnosis Comments MAGNESIUM Routine 10/23/2018 8:00 EST VITAMIN B12 Routine 10/23/2018 8:00 EST LIPID PROFILE (INCLUDES CHOLESTEROL, TRIGLYCERIDES, HDL, LDL) Routine 10/23/2018 8:00 EST BASIC METABOLIC PANEL (BMP) Routine 10/23/2018 8:00 EST documented in this encounter Results * (ABNORMAL) VITAMIN B12 (10/23/2018 8:00 EST) Pathologist [facility] [place] VITAMIN B12 - [facility] >1,000(H) 239 - 931 pg/mL 10/23/2018 10:07 EST [facility] Comment: The results of this assay can be falsely elevated due to the consumption of Biotin. 10/23/2018 8:00 EST 10/23/2018 8:00 EST Narrative [facility] - 10/23/2018 10:07 EST Does PT Have a Latex Allergy? NO Osbaldo Dewitt WATERPROOF BAG SEWER CHEMISTRY & BLOOD GAS ORDERABL ES Final Result Performing Organization Address [facility] Co de Phone Number [facility] * MAGNESIUM (10/23/2018 8:00 EST) [facility] Magnesium 1.80 1.7 - 2.8 mg/dL 10/23/2018 9:24 EST [facility] 10/23/2018 8:00 EST 10/23/2018 8:00 EST [facility] - 10/23/2018 9:24 EST Does PT Have a Latex Allergy? NO us Osbaldo Dewitt WATERPROOF BAG SEWER CHEMISTRY & BLOOD GAS ORDERABL ES Final Result Performing Organization Address [facility]/ZIP Co de Phone Number [facility] * (ABNORMAL) LIPID PROFILE (INCLUDES CHOLESTEROL, TRIGLYCERIDES, HDL, LDL) (10/23/2018 8:00 EST) Triglyceride 79 <150 mg/dL 10/23/2018 9:24 [facility] Comment: Adult: Normal: ?<150 mg/dl ? Borderline High: 150-199 mg/dl ? High: ?200-499 mg/dl ? Very High: >co=605 Cholesterol 205(H) <200 mg/dL 10/23/2018 9:24 [facility] Comment: Acceptable: ??<200 Borderline: ??200-239 High: ?> or = 240 Chol/HDL Ratio 3.4 0 - 4.5 10/23/2018 9:24 [facility] Comment: DESIRABLE RATIO IS LESS THAN 4.1 PATIENTS ARE CONSIDERED AT RISK: WOMEN RATIO >5 MEN RATIO >6 FASTING? - [facility] Yes 8:00 [facility] HDL 60 40 - 60 mg/dL 10/23/2018 9:24 [facility] Comment: ?? Reference Range Low: ? < 40 ??mg/dL Normal: ??40-60 mg/dL High: ?>= 60 mg/dL LDL CHOLESTEROL - [facility] 129(H) 60 - 100 mg/dL 10/23/2018 9:24 [facility] Non HDL Cholesterol 145 mg/dl 10/23/2018 9:24 [facility] Comment: Desirable: ?Less than 130 Borderline High: ??130-159 High: ? 160-189 Very High: ?Greater than or equal to 190 10/23/2018 8:00 EST 10/23/2018 8:00 EST [facility] - 10/23/2018 9:24 EST Does PT Have a Latex Allergy? NO us Osbaldo Dewitt NP CHEMISTRY & BLOOD GAS ORDERABL ES Final Result [facility] * BASIC METABOLIC PANEL (BMP) (10/23/2018 8:00 EST) BUN - [facility] 11 10 - 26 mg/dL 10/23/2018 9:23 [facility] CALCIUM - [facility] 9.9 8.5 - 10.5 mg/dL 10/23/2018 9:23 [facility] Chloride 100 96 - 110 mmol/L 10/23/2018 9:23 [facility] CO2 Total 27 22 - 32 mEq/L 10/23/2018 9:23 [facility] CREATININE 0.63 0.52 - 1.04 mg/dL 10/23/2018 9:23 [facility] eGFR >60 10/23/2018 9:23 [facility] Comment: Chronic renal impairment is defined as GFR <60 Multiply result by 1.210 for patients. eGFR calculated using the IDMS-traceable MDRD Study Equation. ??(effective 08/08/2014) Anion Gap 15 0 - 18 10/23/2018 9:23 [facility] GLUCOSE - [facility] 97 70 - 100 mg/dL 10/23/2018 9:23 [facility] Potassium 4.1 3.5 - 5.0 mEq/L 10/23/2018 9:23 [facility] Sodium 142 136 - 145 mEq/L 10/23/2018 9:23 [facility] 10/23/2018 8:00 EST 10/23/2018 8:00 EST Narrative [facility] - 10/23/2018 9:23 EST Does PT Have a Latex Allergy? NO us Osbaldo Dewitt NP CHEMISTRY & BLOOD GAS ORDERABL ES Final Result [facility] documented in this encounter Visit Diagnoses Not on filedocumented in this encounter Care Teams Deep Submergence Vehicle Crewmember Relationship Specialty Start Date End Date Unknown, Provider, PCP - General 07/18/14 08/31/19 documented as of this encounter
--- OUTSIDE RECORDS SUMMARY | 2024-09-30 00:21 | XMS_ITS | Encounter Summary ---
Author Organization [facility] Address [address] [place] [address] Care Team Providers Care Assisted Living Nursing Director Name Role Phone Unknown, Provider Primary Care Provider Unava ilable Encounter Details Date Type Department Care Team (Late st Contact Info) Description 10/01/2016 Historical Results Only [facility] Lab - Main [place] [address] [place] [address] Bird Watkins MD Social History Tobacco Use [...] Description 11/11/2024 15:30 EST Office Visit [facility] Integrative Family Medicine [facility] [address] [place], [place] [phone] Osbaldo Dewitt, SG [address] [place] [address] documented as of this encounter Procedures Procedure Name Priority Date/Time Associated Diagnosis Comments SURGICAL PATHOLOGY Routine 10/01/2016 16 :19 EST documented in this encounter Results * SURGICAL PATHOLOGY (10/01/2016 16:19 EST) 10/01/2016 16:1 9 EST 10/01/2016 16:19 EST Narrative [facility] - 10/02/2016 11:55 EST ----- ------- Name: SANDIE DUVALL ? : 58 ?Age/Sex: 58/F ?Unit#: [id number] ? Loc: END ? Status: DEP CLI ?? Reg Date: 10/01/16 ? Pt.Phone Number: ? ----- ------- Specimen: [id number] ? STATUS: SOUT ?Spec Date:10/01/16 ? Physician Copies: ?Bird Watkins MD ?? Tissues: A ?? Endoscopy specimen (ESOPHAGUS) ? Osbaldo Dewitt ? CPT: 40117 ?? Units: ??1 ?FINAL DIAGNOSIS ? ESOPHAGUS, BIOPSY; ? -Squamocolumnar mucosal fragments showing mild chronic inflammation of ? submucosal tissue ? -No evident goblet cell (intestinal) metaplasia ? -No evident atypia, dysplasia or malignancy. ? GROSS DESCRIPTION ? Received in formalin labeled with the patient's name and Esophagus biopsy are ? four norwood mucosal fragments ranging from 0.3 to 0.4 cm. es 1 CP ?? PREOP DX/CLINICAL HISTORY ?MUSA ESOPHAGUS Signed ____(signature on file)____ Juhi Jurado M.D. 10/02/16 ? By the signature above, the attending physician certifies that he/she has personally conducted a gross and/or microscopic examination of the described specimens and rendered or confirmed the above diagnosis. Test Performed by [facility], [address] [place] [address] Senior Loss Control Specialist: Ewa Glover MD PHD ----- ------- us Bird Watkins MD PATHOLOGY ORDERABLES Final Re sult [facility] documented in this encounter Visit Diagnoses Not on filedocumented in this encounter Care Teams Assisted Living Nursing Director Relationship Specialty Start Date End Date Unknown, Provider, PCP - General 07/18/14 08/31/19 documented as of this encounter
--- OUTSIDE RECORDS SUMMARY | 2024-09-30 00:21 | XMS_ITS | Encounter Summary ---
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
--- OUTSIDE RECORDS SUMMARY | 2024-09-30 00:21 | XMS_ITS | Encounter Summary ---
Author Organization [facility] Address [address] [place] [address] Care Team Providers Care Natural Resources Specialist Name Role Phone Osbaldo Dewitt NP Primary Care Provider [phone] Reason for Visit * Reason Comments Other Encounter Details Date Type Department Care Team (Late st Contact Info) Description 05/12/2020 Refill Health system - [facility] Integrative Family Medicine [address] [address] Osbaldo Dewitt COUNTER FORMER [address] [place] [address] Other Social History Tobacco Use [...] TABLET BY MOUTH EVERY DAY 90 Tab 05/12/2020 12/13/2020 documented in this encounter Miscellaneous Notes * Telephone Encounter - Grace Wright, RN - 05/12/2020 0949 EDT JALEN - 11/09/19 NOV - 05/23/20 last BMP - 10/23/18 Rx(s) escribed for 90 days NR. GRACE WRIGHT RN documented in this encounter Plan of Treatment Upcoming Encounters Date Type Department Care Team (Late st Contact Info) Description 11/11/2024 15:30 EST Office Visit [facility] Family [address] [phone] Osbaldo Dewitt NP [address] [place] [address] documented as of this encounter Visit Diagnoses Not on filedocumented in this encounter Discontinued Medications Medication Sig Discontinue Reason Start Date End Da te losartan-hydrochlorothia zide (HYZAAR) 100-25 mg per tablet TAKE ONE TABLET BY MOUTH EVERY DAY 02/03/2020 05/12/2020 documented as of this encounter Care Teams Natural Resources Specialist Relationship Specialty Start Date End Date Osbaldo Dewitt NP [address] [place] [address] PCP - General 09/01/19 documented as of this encounter
--- OUTSIDE RECORDS SUMMARY | 2024-09-30 00:21 | XMS_ITS | Encounter Summary ---
Author Organization [facility] Address [address] [place] [address] Care Team Providers Care Gas Utility Worker Name Role Phone Unknown, Provider Primary Care Provider Unava ilable Encounter Details Date Type Department Care Team (Latest Contact Info) Description 07/08/2016 12:36 EDT - 07/08/2016 23:59 EDT Hospital Encounter [facility] [address] [place] [address] Unknown, Provider, Discharge Disposition: Home or Self [...] ADMIN INSTRUCTIONS. once a week prn 06/04/2016 documented as of this encounter Discharge Disposition Disposition Code Departure Means Destination Home or Self [facility] documented in this encounter Plan of Treatment Upcoming Encounters Date Type Department Care Team (Late st Contact Info) Description 11/11/2024 15:30 EST Office Visit [facility] Integrative Family Medicine [address] [phone] Osbaldo Dewitt, PROP DRAWER [address] [place] [address] documented as of this encounter Visit Diagnoses Not on filedocumented in this encounter Care Teams Gas Utility Worker Relationship Specialty Start Date End Date Unknown, Provider, PCP - General 07/18/14 08/31/19 documented as of this encounter
--- OUTSIDE RECORDS SUMMARY | 2024-09-30 00:21 | XMS_ITS | Encounter Summary ---
Author Organization [facility] Address [address] [place] [address] Care Team Providers Care Detonator Maker Name Role Phone Osbaldo Dewitt NP Primary Care Provider [phone] Reason for Visit * Reason Comments Hypertension Hyperlipidemia Encounter Details Date Type Department Care Team (Late st Contact Info) Description 11/09/2019 10:40 EST Office Visit [facility] Integrative Family Medicine [facility] [address] [place] [address] Osbaldo Dewitt NP [address] [place] [address] Hypertension, unspecified type (Primary Dx); Cronin's esophagus without dysplasia; Anxiety Social History Tobacco Use Types Packs/Day Years Used Date Smoking Tobacco: Former Smokeless Tobacco: Never Comments Unknown Sex and Gender Information Value Date Recorded Sex Assigned at Female 11/11/2022 11:31 EST Legal Sex Female 18:16 EST Gender Identity Female 11/11/2022 11:31 EST Sexual Orientation Straight 11/11/2022 11 :31 EST documented as of this encounter Last Filed Vital Signs Vital Sign Reading Time Taken Comments Blood Pressure 112/80 11/09/2019 1015 EST Pulse 60 11/09/2019 1015 EST Temperature - - Respiratory Rate 16 11/09/2019 1015 EST Oxygen Saturation - - Inhaled Oxygen Concentration - - Weight 97.5 kg (215 lb) 11/09/2019 1015 EST Height 175.3 cm (5' 9) 11/09/2019 1015 EST Body Mass Index 31.75 11/09/2019 1015 EST documented in this encounter Ordered Prescriptions Prescription Sig Dispense Quantity Refills Last Filled Start Date End Date hydroCHLOROthiazide (HYDRODIURIL) 25 mg tabletIndications:H ypertension, unspecified type Take 1 Tab by mouth daily. 90 Tab 11/09/2019 02/03/2020 documented in this encounter Progress Notes * Osbaldo Dewitt, DIAL REFINISHER - 11/09/2019 1040 EST [facility] Primary Care Subjective: Chief Complaint(s): Hypertension and Hyperlipidemia HPI: The history is provided by the patient. No russian language professor was used. Hypertension Managed with hydrochlorothiazide/losarten 25 mg/100 mg QD and atenolol 25 mg QD. Medication adherence is good . Has lost 51lbs in the last year with calorie counting, goal of increasing exercise now.Has a fitbit tracker to count steps. Denies chest pain, shortness of breath, new onset edema. GI Hx of Cronin esophagus, last EGD 10/04/[address] Romero showed chronic inflammation but no metaplasia or dysplasia. She has had 3 normal consecutive endoscopies, he recommends repeat only if symptomatic, pt prefers every 5 years. Managed on [id number] QD. Rare breakthrough sxs. 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 I have reviewed patient's tobacco history: reports that she has quit smoking. She has never used smokeless tobacco. I have reviewed current problem list and current medications. Medications: Current Outpatient Medications on File Prior to Visit Medication Sig Dispense Refill ??? atenolol (TENORMIN) 25 mg tablet Take 1 Tab by mouth daily. ??? cholecalciferol, Vitamin D3, 1,000 unit tablet Take 1,000 Units by mouth daily. ??? clobetasol (TEMOVATE) 0.05 % cream Apply 1 application topically SEE ADMIN INSTRUCTIONS. once aweek prn ??? doxycycline (PERIOSTAT) 20 mg tablet Take 2 Tabs by mouth daily. ??? estradiol (ESTRACE) 0.01 % (0.1 mg/gram) vaginal cream Place 0.5 g vaginally SEE ADMIN INSTRUCTIONS. twice weekly prn ??? fexofenadine (LAKESHA ALLERGY) 180 mg tablet Take 1 Tab by mouth daily. ??? fluticasone propionate (FLONASE) 50 mcg/actuation nasal spray Instill 2 Sprays into both nostrils daily as needed. ??? glucosamine sulfate 500 mg capsule Take 2 Caps by mouth daily. ??? losartan (COZAAR) 100 mg tablet Take 1 Tab by mouth daily. 90 Tab 0 ??? omeprazole (PRILOSEC) 20 mg capsule TAKE ONE CAPSULE BY MOUTH AT BEDTIME 90 Cap 3 ??? venlafaxine (EFFEXOR XR) 37.5 mg XR capsule Take 1 Cap by mouth daily. No current facility-administered medications on file prior to visit. ROS: Review of Systems Constitutional: Positive for weight loss. Negative for chills (intentional), fever and malaise/fatigue. Respiratory: Negative for sputum production. Cardiovascular: Positive for palpitations (occasional). Negative for chest pain, leg swelling and PND. Gastrointestinal: Negative for heartburn. Musculoskeletal: Positive for back pain and joint pain. Psychiatric/Behavioral: The patient is not nervous/anxious. Objective: Examination: Vitals: BP 112/80 Pulse 60 Resp 16 Ht 175.3 cm (69) Wt 97.5 kg (215 lb) BMI 31.75 kg/m?? Body mass index is 31.75 kg/m??. Physical Exam Constitutional: She is oriented to person, place, and time. She appears well- developed and well-nourished. HENT: Head: Normocephalic and atraumatic. Eyes: Pupils are equal, round, and reactive to light. EOM are normal. Neck: Normal range of motion. Neck supple. Carotid bruit is not present. No thyromegaly present. Cardiovascular: Normal rate, regular rhythm and normal heart sounds. No murmur heard. Pulmonary/Chest: Effort normal and breath sounds normal. No respiratory distress. Musculoskeletal: Normal range of motion. Neurological: She is alert and oriented to person, place, and time. Skin: Skin is warm and dry. She is not diaphoretic. Psychiatric: She has a normal mood and affect. Her behavior is normal. Judgment and thought contentnormal. Data reviewed with patient (past results): Reviewed and/or ordered health maintenance, notes from last encounter, lab results, endoscopy procedure notes Assessment & Plan: Sandie was seen today for hypertension and hyperlipidemia. Diagnoses and all orders for this visit: Hypertension, unspecified type Comments: Good control on HCTZ/losatan regimen, continue lifestyle interventions, weight loss. Check routine labs. Orders: - hydroCHLOROthiazide (HYDRODIURIL) 25 mg tablet; Take 1 Tab by mouth daily. - LIPID PROFILE (INCLUDES CHOLESTEROL, TRIGLYCERIDES, HDL, LDL); Future - COMPREHENSIVE METABOLIC PANEL (CMP); Future Cronin's esophagus without dysplasia Comments: Reassuring endoscopy 09/2019. Continue PPI, repeat in 5 years or for worsening sxs. Orders: - VITAMIN B12; Future - MAGNESIUM; Future Anxiety Comments: Well controlled on Effexor, continue current dose. All other conditions stable unless otherwise specified. Patient advised to follow up for any concerns or change in status. Return in about 6 months (around 05/09/2020) for HTN, . documented in this encounter Miscellaneous Notes * Assessment & Plan Note - Osbaldo Dewitt APRN - 11/09/2019 0910 ESTAssociated Problem(s): Cronin esophagus Endoscopy last completed 10/04/19 - chronic inflammation without metaplasia or dysplasia. Dr. Romerorecs to repeat now only if symptomatic - consider repeat in 2024 per pt preference. documented in this encounter Plan of Treatment Upcoming Encounters Date Type Department Care Team (Late st Contact Info) Description 11/11/2024 15:30 EST Office Visit [facility] [place] [address] Osbaldo Dewitt NP [address] [place] [address] documented as of this encounter Visit Diagnoses Diagnosis Hypertension, unspecified type- Primary Cronin's esophagus without dysplasia Cronin's esophagus Anxiety Anxiety state, unspecified documented in this encounter Discontinued Medications Medication Sig Discontinue Reason Start Date End Da te cephALEXin (KEFLEX) 500 mg capsule Take 1 Cap by mouth 3 times daily. Patient Stopped Taking 04/20/2019 11/09/2019 doxycycline (VIBRA-TABS) 100 mg tablet Take 1 Tab by mouth 2 times daily. Patient Stopped Taking 04/27/2019 11/09/2019 hydroCHLOROthiazide (HYDRODIURIL) 25 mg tabletIndications:Hyper tension, unspecified type Take 1 Tab by mouth daily. Reorder 11/02/2019 11/09/2019 documented as of this encounter Historical Medications * This list may reflect changes made after this encounter. cholecalciferol, Vitamin D3, 1,000 unit tablet Take 1 Tablet by mouth daily. added in this encounter Care Teams Detonator Maker Relationship Specialty Start Date End Date Osbaldo Dewitt NP [address] [place], [place] [address] PCP - General 09/01/19 documented as of this encounter
--- OUTSIDE RECORDS SUMMARY | 2024-09-30 00:21 | XMS_ITS | Encounter Summary ---
Author Organization [facility] Address [address] [place] [address] Care Team Providers Care Paperhanger And Painter Name Role Phone Unknown, Provider MD Primary Care Provider Unava ilable Encounter Details Date Type Department Care Team (Latest Contact Info) Description 11/20/2017 23:48 EST - 11/20/2017 23:59 EST Hospital Encounter [facility] [address] [place] [address] Unknown, Provider, Discharge Disposition: Home or Self [...] Code Departure Means Destination Home or Self [facility] documented in this encounter Plan of Treatment Upcoming Encounters Date Type Department Care Team (Late st Contact Info) Description 11/11/2024 15:30 EST Office Visit [address] [phone] Osbaldo Dewitt NP [address] [place], [place] [phone] documented as of this encounter Visit Diagnoses Not on filedocumented in this encounter Care Teams Paperhanger And Painter Relationship Specialty Start Date End Date Unknown, Provider, PCP - General 07/18/14 08/31/19 documented as of this encounter
--- OUTSIDE RECORDS SUMMARY | 2024-09-30 00:21 | XMS_ITS | Encounter Summary ---
Author Organization [facility] Address [address] [place] [address] Care Team Providers Care Drug Abuse Counselor Name Role Phone Unavailable Primary Care Provider Unavailabl e Encounter Details Date Type Department Care Team (Latest Contact Info) Description 07/07/2014 13:34 EDT - 07/07/2014 23:59 EDT Hospital Encounter [facility] [address] [place] [address] Unknown, Provider, Discharge Disposition: Home or Self Care Social History Tobacco Use Types Packs/Day Years Used Date Smoking Tobacco: Never Assessed Comments Unknown Sex and Gender Information Value Date Recorded Sex Assigned at Female 11/11/2022 11:31 EST Legal Sex Female 18:16 EST Gender Identity Female 11/11/2022 11:31 EST Sexual Orientation Straight 11/11/2022 11 :31 EST documented as of this encounter Discharge Disposition Disposition Code Departure Means Destination Home or Self [facility] documented in this encounter Plan of Treatment Upcoming Encounters Date Type Department Care Team (Late st Contact Info) Description 11/11/2024 15:30 EST Office Visit [facility] Integrative Family Medicine [facility] [address] [place] [address] Osbaldo Dewitt, ENTEROSTOMAL NURSE [address] [place] [address] documented as of this encounter Visit Diagnoses Not on filedocumented in this encounter
--- OUTSIDE RECORDS SUMMARY | 2024-09-30 00:21 | XMS_ITS | Encounter Summary ---
Author Organization [facility] Address [address] [place] [address] Care Team Providers Care Java Project Manager Name Role Phone Unknown, Provider Primary Care Provider Unava ilable Encounter Details Date Type Department Care Team (Late st Contact Info) Description 04/20/2019 Historical Results Only [facility] - Main [place] [address] [place] [address] Osbaldo Dewitt NP [address] [place], [place] [phone] Social History Tobacco Use Types Packs/Day Years [...] Info) Description 11/11/2024 15:30 EST Office Visit [facility] Integrative Family Medicine [address] [address] Osbaldo Dewitt NP [address] [place] [address] documented as of this encounter Procedures Procedure Name Priority Date/Time Associated Diagnosis Comments PAP TEST Routine 04/20/2019 16:37 EDT HPV DNA DETECTION WITH GENOTYPING, PCR Routine 04/20/2019 11:59 EDT documented in this encounter Results * PAP TEST (04/20/2019 16:37 EDT) 04/20/2019 16:3 7 EDT 04/20/2019 16:39 EDT Narrative [facility] - 04/27/2019 15:39 EDT ----- ------- Name: SANDIE DUVALL ? : 58 ?Age/Sex: 59/F ?Unit#: [id number] ? Loc: MHC ? Status: REG POV ?? Reg Date: 04/20/19 ? Pt.Phone Number: ? ----- ------- Specimen: [id number] ?STATUS: SOUT ?Spec Date:04/20/19 ? Physician Copies: ?Osbaldo Dewitt ? Tissues: ? VAG/CERV PAP ? CPT: 39792 ?? Units: ??1 ----- ------- ? CYTOLOGY DIAGNOSIS SPECIMEN ADEQUACY: ?Satisfactory for evaluation. Transformation zone component present. GENERAL CATEGORIZATION: ?Negative for Intraepithelial Lesion or Malignancy DESCRIPTIVE DIAGNOSIS: ? Negative for Intraepithelial Lesion or Malignancy. ----- ------- ?HPV DNA RESULTS ? LABORATORY ?? Date ? Time Test ?Result ?? Flag ?Normal Range ?? 04/20/19 1159 HPV DNA RESULT ??NEG ? Negative for HPV types 16, 18, 31, 33, 35, 39, 45, 51, 52, ? 56, 58, 59, 66, 68. ? Method: Cervista HPV HR (High Risk) DNA test. ----- ------- ORDER QUERIES: LMP: 2008 ?- 2008 ? N Post ? N ??PREVIOUS ATYPICAL: N BCP/HRT? N Rad Rx? N IUD? N ??PAP PLUS HPV? Y ??REFLEX TO HR-HPV IF ASCUS Y REFLEX TO HPV 16/18 IF HPV POS/PAP NEG Y HPV REGARDLESS? Y ??RFLX HPV IF LSIL ?? Signed Rafy Velasquez CT(ASCP) 04/27/19 By the signature above, the attending physician certifies that he/she has personally conducted a gross and/or microscopic examination of the described specimens and rendered or confirmed the above diagnosis. Test Performed by [facility], [address] [place] [address] Manager Video Games: Ewa Glover MD PHD ----- ------- us Osbaldo Dewitt NP PATHOLOGY ORDERABLES Final Res ult Performing Organization Address City/[facility]/ZIP Co de Phone Number [facility] * HUMAN PAPILLOMAVIRUS (HPV) DETECTION-HIGH RISK TYPES (04/20/2019 11:59 EDT) HPV other High Risk types, PCR NEG 04/22/2019 15:47 EDT [facility] Comment: Negative for HPV types 16, 18, 31, 33, 35, 39, 45, 51, 52, 56, 58, 59, 66, 68. Method: Cervista HPV HR (High Risk) DNA test. 04/20/2019 11:5 9 EDT 04/21/2019 12:00 EDT us Osbaldo Dewitt NP MICROBIOLOGY - GENERAL ORDERAB LES Final Result Performing Organization Address City/[facility]/ZIP Co de Phone Number [facility] documented in this encounter Visit Diagnoses Not on filedocumented in this encounter Care Teams Java Project Manager Relationship Specialty Start Date End Date Unknown, Provider, PCP - General 07/18/14 08/31/19 documented as of this encounter
--- OUTSIDE RECORDS SUMMARY | 2024-09-30 00:21 | XMS_ITS | Encounter Summary ---
Author Organization [facility] Address [address] [place] [address] Care Team Providers Care Pharmacy Salesperson Name Role Phone Osbaldo Dewitt NP Primary Care Provider [phone] Reason for Visit * Reason Comments Other Encounter Details Date Type Department Care Team (Late st Contact Info) Description 01/03/2020 Refill [facility] Integrative Family Medicine [address] [address] Osbaldo Dewitt NP [address] [place] [address] Other Social History Tobacco Use [...] End Date venlafaxine (EFFEXOR-XR) 37.5 mg XR capsule TAKE ONE CAPSULE BY MOUTH EVERY DAY 90 Cap 3 01/03/2020 04/12/202 1 documented in this encounter Miscellaneous Notes * Telephone Encounter - Grace Eubanks, RN - 01/03/2020 1258 EDT JALEN -11/09/19 NOV - 05/09/20 OK to refill? documented in this encounter Plan of Treatment Upcoming Encounters Date Type Department Care Team (Late st Contact Info) Description 11/11/2024 15:30 EST Office Visit [facility] Integrative Family Medicine [address] [phone] Osbaldo Dewitt NP [address] [place] [phone] documented as of this encounter Visit Diagnoses Not on filedocumented in this encounter Discontinued Medications Medication Sig Discontinue Reason Start Date End Da te venlafaxine (EFFEXOR XR) 37.5 mg XR capsule Take 1 Cap by mouth daily. 11/26/2016 01/03/2020 documented as of this encounter Care Teams Pharmacy Salesperson Relationship Specialty Start Date End Date Osbaldo Dewitt NP [address] [place] [phone] PCP - General 09/01/19 documented as of this encounter
--- OUTSIDE RECORDS SUMMARY | 2024-09-30 00:21 | XMS_ITS | Encounter Summary ---
Author Organization [facility] Address [address] [place] [address] Care Team Providers Care Operations Consultant Name Role Phone Unknown, Provider Primary Care Provider Unava ilable Encounter Details Date Type Department Care Team (Late st Contact Info) Description 11/20/2017 Historical Results Only [facility] Radiology Results [address] [place] [address] Ada Theodore PA-C [address] [facility] [address] [place], [place] [address] Social History Tobacco Use Types Packs/Day Years [...] Info) Description 11/11/2024 15:30 EST Office Visit [facility] [address] [place] [address] Osbaldo Dewitt NP [address] [place] [address] documented as of this encounter Procedures Procedure Name Priority Date/Time Associated Diagnosis Comments XR CHEST 2 VIEWS 11/20/2017 14:0 6 EST documented in this encounter Results * XR CHEST 2 VIEWS (11/20/2017 14:06 EST) Anatomical Region Laterality Modality Other 11/20/2017 14:0 6 EST Narrative 11/20/2017 14:09 EST ? EXAM: RADIOLOGY EXPRESS CARE/EXP CARE LILIANA EX. D/ (1320) ? CLINICAL INFORMATION: ? COUGH X 2 WEEKS WORSENING RECNETLY WITH FEVERS. ? EXP CARE CHEST PA ?? LAT ? Signs and Symptoms/Comments: ??COUGH X 2 WEEKS WORSENING RECENTLY WITH ? FEVERS. ? Comparisons: None ? FINDINGS: ? PA and lateral views of the chest were performed. The lungs are ? clear. No pneumothorax or pleural effusion is present. The ? cardiomediastinal silhouette and pulmonary vascularity are normal. ? Multilevel thoracic degenerative changes are present. ? IMPRESSION: ? No acute cardiopulmonary process. ? REPORT SIGNED IN OTHER VENDOR SYSTEM 11/20/2017 ?Reported By: Sunny Arnold MD ? CC: ? Transcribed Date/Time: 11/20/2017 (1409) ? Save All Operator: ? Printed Date/Time: 03/25/2019 (8740) ? PAGE 1 ? Signed Report ? Procedure Note Sunny Arnold MD - 08/11/2019 EXAM: RADIOLOGY EXPRESS CARE/EXP CARE LILIANA EX. D/ (1320) CLINICAL INFORMATION: COUGH X 2 WEEKS WORSENING RECNETLY WITH FEVERS. EXP CARE CHEST PA LAT Signs and Symptoms/Comments: COUGH X 2 WEEKS WORSENING RECENTLYWITH FEVERS. Comparisons: None FINDINGS: PA and lateral views of the chest were performed. The lungs are clear. No pneumothorax or pleural effusion is present. The cardiomediastinal silhouette and pulmonary vascularity are normal. Multilevel thoracic degenerative changes are present. IMPRESSION: No acute cardiopulmonary process. REPORT SIGNED IN OTHER VENDOR SYSTEM 11/20/2017 Reported By: Sunny Arnold MD CC: Transcribed Date/Time: 11/20/2017 (1409) Save All Operator: Printed Date/Time: 03/25/2019 (6570) PAGE 1 Signed Report us Ada Theodore PA-C [facility] ORDERABLES Final Result documented in this encounter Visit Diagnoses Not on filedocumented in this encounter Care Teams Operations Consultant Relationship Specialty Start Date End Date Unknown, Provider, PCP - General 07/18/14 08/31/19 documented as of this encounter
--- OUTSIDE RECORDS SUMMARY | 2024-09-30 00:21 | XMS_ITS | Encounter Summary ---
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 [...] [facility] Integrative Family Medicine [facility] [address] [place] [address] Osbaldo Dewitt, AEROBICS TEACHER [address] [place] [address] (work) documented as of this encounter Procedures Procedure Name Priority Date/Time Associated Diagnosis Comments LIPID PROFILE (INCLUDES CHOLESTEROL, TRIGLYCERIDES, HDL, LDL) Routine 12/15/2020 7:37 EST COMPREHENSIVE METABOLIC PANEL (CMP) Routine 12/15/2020 7:37 EST documented in this encounter Results * (ABNORMAL) LIPID PROFILE (INCLUDES CHOLESTEROL, TRIGLYCERIDES, HDL, LDL) (12/15/2020 7:37 EST) [facility] Triglyceride 83 <150 mg/dL 12/15/2020 9:04 [facility] Comment: Adult: Normal: ?<150 mg/dl ? Borderline High: 150-199 mg/dl ? High: ?200-499 mg/dl ? Very High: >hy=042 Cholesterol 225(H) <200 mg/dL 12/15/2020 9:04 [facility] Comment: Acceptable: ??<200 Borderline: ??200-239 High: ?> or = 240 Chol/HDL Ratio 3.5 0 - 4.5 12/15/2020 9:04 [facility] Comment: DESIRABLE RATIO IS LESS THAN 4.1 PATIENTS ARE CONSIDERED AT RISK: WOMEN RATIO >5 MEN RATIO >6 FASTING? - [facility] Yes 7:37 [facility] HDL 63(H) 40 - 60 mg/dL 12/15/2020 9:04 [facility] Comment: ?? Reference Range Low: ? < 40 ??mg/dL Normal: ??40-60 mg/dL High: ?>= 60 mg/dL LDL CHOLESTEROL - [facility] 145(H) 60 - 100 mg/dL 12/15/2020 9:04 [facility] Non HDL Cholesterol 162 mg/dl 12/15/2020 9:04 [facility] Comment: Desirable: ?Less than 130 Borderline High: ??130-159 High: ? 160-189 Very High: ?Greater than or equal to 190 12/15/2020 7:37 EST 12/15/2020 7:37 EST Narrative [facility] - 12/15/2020 9:04 EST Does PT Have a Latex Allergy? NO us Osbaldo Dewitt NP CHEMISTRY & BLOOD GAS ORDERABL ES Final Result [facility] [address] [place] [address] * COMPREHENSIVE METABOLIC PANEL (CMP) (12/15/2020 7:37 EST) Albumin % 4.5 3.4 - 4.9 g/dL 12/15/2020 9:04 [facility] ALKALINE PHOSPHATASE - [facility] 63 38 - 126 U/L 12/15/2020 9:04 [facility] BILIRUBIN TOTAL 0.4 0.2 - 1.3 mg/dL 12/15/2020 9:04 [facility] BUN - [facility] 19 10 - 26 mg/dL 12/15/2020 9:04 [facility] CALCIUM - [facility] 9.7 8.5 - 10.5 mg/dL 12/15/2020 9:04 [facility] Chloride 103 96 - 110 mmol/L 12/15/2020 9:04 [facility] CO2 Total 29 22 - 32 mEq/L 12/15/2020 9:04 [facility] CREATININE 0.67 0.52 - 1.04 mg/dL 12/15/2020 9:04 [facility] eGFR >60 12/15/2020 9:04 [facility] Comment: Chronic renal impairment is defined as GFR <60 Multiply result by 1.210 for patients. eGFR calculated using the IDMS-traceable MDRD Study Equation. ??(effective 08/08/2014) Anion Gap 8 0 - 18 12/15/2020 9:04 [facility] GLUCOSE - [facility] 96 70 - 100 mg/dL 12/15/2020 9:04 EST [facility] Potassium 4.3 3.5 - 5.0 mEq/L 12/15/2020 9:04 [facility] Sodium 140 136 - 145 mEq/L 12/15/2020 9:04 EST [facility] TOTAL PROTEIN - [facility] 7.5 6.2 - 8.2 gm/dL 12/15/2020 9:04 [facility] SGOT/AST - [facility] 25 14 - 36 U/L 12/15/2020 9:04 [facility] SGPT/ALT - [facility] 15 0 - 35 U/L 9:04 [facility] 12/15/2020 7:37 EST 12/15/2020 7:37 EST Narrative [facility] - 12/15/2020 9:04 EST Does PT Have a Latex Allergy? NO us Osbaldo Dewitt NP CHEMISTRY & BLOOD GAS ORDERABL ES Final Result [facility] [address] [place] [address] documented in this encounter Visit Diagnoses Not on filedocumented in this encounter Care Teams Rn Neonatal Relationship Specialty Start Date End Date Osbaldo Dewitt, SG [address] [place] [address] PCP - General 09/01/19 documented as of this encounter
--- OUTSIDE RECORDS SUMMARY | 2024-09-30 00:21 | XMS_ITS | Encounter Summary ---
Author Organization [facility] Address [address] [place] [address] Care Team Providers Care Chopper Operator Name Role Phone Osbaldo Dewitt NP Primary Care Provider [phone] Reason for Visit * Reason Comments Other Encounter Details Date Type Department Care Team (Late st Contact Info) Description 09/28/2019 Refill [facility] Integr[facility] Family Medicine [address] [address] Osbaldo Dewitt NP [address] [place] [address] Other Social History Tobacco Use [...] omeprazole (PRILOSEC) 20 mg capsuleIndications :Gastroesophageal reflux disease, esophagitis presence not specified TAKE ONE CAPSULE BY MOUTH AT BEDTIME 90 Cap 3 09/30/2019 01/11/202 1 documented in this encounter Miscellaneous Notes * Telephone Encounter - Grace Wright, RN - 09/30/2019 1030 EST JALEN - 04/20/19 NOV - 10/21/19 Rx escribed to pharmacy. GRACE WRIGHT, RN documented in this encounter Plan of Treatment Upcoming Encounters Date Type Department Care Team (Late st Contact Info) Description 11/11/2024 15:30 EST Office Visit [facility] Family Medicine [address] [address] Osbaldo Dewitt NP [address] [place] [address] documented as of this encounter Visit Diagnoses Diagnosis Gastroesophageal reflux disease, esophagitis presence not specified- Primary documented in this encounter Care Teams Chopper Operator Relationship Specialty Start Date End Date Osbaldo Dewitt NP [address] [place] [address] PCP - General 09/01/19 documented as of this encounter
--- OUTSIDE RECORDS SUMMARY | 2024-09-30 00:21 | XMS_ITS | Encounter Summary ---
Author Organization [facility] Address [address] [place] [address] Care Team Providers Care Buzzle Buffer Name Role Phone Unknown, Provider Primary Care Provider Unava ilable Encounter Details Date Type Department Care Team (Late st Contact Info) Description 11/16/2018 Historical Results Only [facility] Radiology Results [address] [place] [address] Osbaldo Dewitt NP [address] [place], [place] [address] Social History Tobacco Use Types Packs/Day Years [...] Info) Description 11/11/2024 15:30 EST Office Visit [facility] Integrative Family [facility] [address] [place], [place] [address] Osbaldo Dewitt NP [address] [place], [place] [phone] documented as of this encounter Procedures Procedure Name Priority Date/Time Associated Diagnosis Comments MA BREAST SCREENING JULIAN BILATERAL 11/16/2018 14:21 EST documented in this encounter Results * MA BREAST SCREENING JULIAN BILATERAL (11/16/2018 14:21 EST) Anatomical Region Laterality Modality Breast Bilateral Other 11/16/2018 14:2 1 EST Narrative 11/16/2018 14:22 EST ? EXAM: MAMMOGRAM/MAMMO BILATERAL SCREEN W ??EX. D/ (0751) ? CLINICAL INFORMATION: ? Z12.31 SCREENING ? INDICATION: Z12.31 SCREENING SCREENING Jul 08 ? TECHNIQUE: ??Full field digital whole breast 2D (C-view) and 3D CC and ? MLO views of both breasts were obtained. CAD technology was utilized. ? FINDINGS: ??The fibroglandular patterns of the breasts are normal. ? There has been no change when compared to previous mammograms and ? there is no mammographic evidence of cancer. The breast tissue is of ? fatty density. ? FINAL ASSESSMENT BILATERAL BREAST: ??BI-RADS Category 1 - Negative. ? Routine mammographic follow-up is recommended. ? These results will be communicated to your patient via a lay letter ? from Radiology. ??If any additional imaging is needed we will contact ? your patient directly. ? REPORT SIGNED IN OTHER VENDOR SYSTEM 11/17/2018 ?Reported By: Sunny Arnold MD ? CC: ? Transcribed Date/Time: 11/16/2018 (1422) ? Field Organizer: ? Printed Date/Time: 03/29/2019 (0372) ? PAGE 1 ? Signed Report ? Procedure Note Sunny Arnold MD - 08/12/2019 EXAM: MAMMOGRAM/MAMMO BILATERAL SCREEN W EX. D/ (0751) CLINICAL INFORMATION: Z12.31 SCREENING INDICATION: Z12.31 SCREENING SCREENING Jul 08 TECHNIQUE: Full field digital whole breast 2D (C-view) and 3D CCand MLO views of both breasts were obtained. CAD technology wasutilized. FINDINGS: The fibroglandular patterns of the breasts are normal. There has been no change when compared to previous mammograms and there is no mammographic evidence of cancer. The breast tissue isof fatty density. FINAL ASSESSMENT BILATERAL BREAST: BI-RADS Category 1 - Negative. Routine mammographic follow-up is recommended. These results will be communicated to your patient via a lay letter from Radiology. If any additional imaging is needed we willcontact your patient directly. REPORT SIGNED IN OTHER VENDOR SYSTEM 11/17/2018 Reported By: Sunny Arnold MD CC: Transcribed Date/Time: 11/16/2018 (142) Field Organizer: Printed Date/Time: 03/29/2019 (6661) PAGE 1 Signed Report us Osbaldo Dewitt NP IMG MAMMOGRAPHY ORDERABLES Fin al Result documented in this encounter Visit Diagnoses Not on filedocumented in this encounter Care Teams Buzzle Buffer Relationship Specialty Start Date End Date Unknown, Provider, PCP - General 07/18/14 08/31/19 documented as of this encounter
--- OUTSIDE RECORDS SUMMARY | 2024-09-30 00:21 | XMS_ITS | Encounter Summary ---
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 No / Unsure 12/05/2020 16:49 EST documented as of this encounter Miscellaneous Notes * Telephone Encounter - Dat Rojas RN - 12/18/2020 1150 EDT Patient notified of results.Patien agrees to work on diet and exercise. Patient will call the office if her symptoms fail to improve with PT. * Telephone Encounter - Kassi Steiner - 12/18/2020 1133 EDT Patient returning call to . * Telephone Encounter - Dat Rojas RN - 12/18/2020 1002 EDT ----- Message from Osbaldo Dewitt APRN sent at 12/18/2020 9:25 EDT ----- CMP WNL. Cholesterol total and LDL are elevated. ASCVD risk is 4%. Recommendations for med diet andregular CV exercise, please offer referral to T family welfare social work professor. C spine XR shows advanced facet arthrosis with multilevel spondylolisthesis and mild translational change with flexion/extension. Let's have her continue plan for PT, if not improving, we'll have her see spine medicine. documented in this encounter Plan of Treatment Upcoming Encounters Date Type Department Care Team (Late st Contact Info) Description 11/11/2024 15:30 EST Office Visit [facility] Integrative Family Medicine [address] [address] Osbaldo Dewitt NP [address] [place] [address] documented as of this encounter Visit Diagnoses Not on filedocumented in this encounter Care Teams Computer Hardware Designer Relationship Specialty Start Date End Date Osbaldo Dewitt NP [address] [place] [address] PCP - General 09/01/19 documented as of this encounter
--- OUTSIDE RECORDS SUMMARY | 2024-09-30 00:21 | XMS_ITS | Encounter Summary ---
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 documented in this encounter Plan of Treatment Upcoming Encounters Date Type Department Care Team (Late st Contact Info) Description 11/11/2024 15:30 EST Office Visit [facility] Family Medicine [facility] [address] [place], [place] [phone] Osbaldo Dewitt NP [address] [place] [address] documented as of this encounter Visit Diagnoses Diagnosis Anxiety- Primary Anxiety state, unspecified Depression, unspecified depression type documented in this encounter Discontinued Medications Medication Sig Discontinue Reason Start Date End Da te venlafaxine (EFFEXOR-XR) 37.5 mg XR capsule TAKE ONE CAPSULE BY MOUTH EVERY DAY 01/03/2020 01/15/2021 documented as of this encounter Care Teams Woodwinds Teacher Relationship Specialty Start Date End Date Osbaldo Dewitt NP [address] [place] [id number] PCP - General 09/01/19 documented as of this encounter
--- OUTSIDE RECORDS SUMMARY | 2024-09-30 00:21 | XMS_ITS | Encounter Summary ---
Author Organization [facility] Address [address] [place] [address] Care Team Providers Care Thermit Welding Machine Operator Name Role Phone Unknown, Provider Primary Care Provider Osbaldo Moralez NP Primary Care Provider [phone] Encounter Details Date Type Department Care Team (Late st Contact Info) Description 05/05/2014 Historical Results Only [facility] Lab - Main [place] [address] [place], [place] [phone] Lesia Braden APRN [address] [place] [address] Social History Tobacco Use Types [...] [facility] Integrative Family Medicine [facility] [address] [place] [address] Osbaldo Dewitt, CLERICAL METHODS ANALYST [address] [place] [phone] documented as of this encounter Procedures Procedure Name Priority Date/Time Associated Diagnosis Comments PAP TEST Routine 05/05/2014 9:57 EDT documented in this encounter Results * PAP TEST (05/05/2014 9:57 EDT) 05/05/2014 9:57 EDT 05/06/2014 9:57 EDT Narrative [facility] - 05/10/2014 8:58 EDT ----- ------- Name: SANDIE DUVALL ? : 58 ?Age/Sex: 59/F ?Unit#: [id number] ? Loc: MHC ? Status: REG POV ?? Reg Date: 05/05/14 ? Pt.Phone Number: ? ----- ------- Specimen: [id number] ?STATUS: SOUT ?Spec Date:05/05/14 ? Physician Copies: ?Lesia Braden Tissues: ? Cervical/Endo Pap ?Sharif Frances CPT: 16926 ?? Units: ??1 ----- ------- ? CYTOLOGY DIAGNOSIS SPECIMEN ADEQUACY: ??Satisfactory for evaluation. Assessment of transformation zone not applicable (e.g. ??atrophy, vaginal sample, hysterectomy). GENERAL CATEGORIZATION: ?Negative for Intraepithelial Lesion or Malignancy DESCRIPTIVE DIAGNOSIS: ? Negative for Intraepithelial Lesion or Malignancy. ----- ------- ?HPV DNA RESULTS ?? 05/05/14 0957 HPV DNA RESULT ??NEG ? Negative for HPV types 16, 18, 31, 33, 35, 39, 45, 51, 52, ? 56, 58, 59, 66, 68. ? Method: Cervista HPV HR (High Risk) DNA test. ----- ------- ORDER QUERIES: LMP: ? - ? N Post ? N ??PREVIOUS ATYPICAL: N BCP/HRT? N Rad Rx? N IUD? N ??PAP PLUS HPV? Y ??REFLEX TO HR-HPV IF ASCUS Y REFLEX TO HPV 16/18 IF HPV POS/PAP NEG Y HPV REGARDLESS? Y ??RFLX HPV IF LSIL ?? Signed Mae Velarde CT(ASCP) 05/10/14 By the signature above, the attending physician certifies that he/she has personally conducted a gross and/or microscopic examination of the described specimens and rendered or confirmed the above diagnosis. Test Performed by [facility], [address] [place] [address] Publications Sales Representative: Ewa Glover MD PHD ----- ------- us Lesia A Asiya CAR DUMPER PATHOLOGY ORDERABLES Fin al Result [facility] documented in this encounter Visit Diagnoses Not on filedocumented in this encounter Care Teams Thermit Welding Machine Operator Relationship Specialty Start Date End Date Unknown, Provider, PCP - General 07/18/14 08/31/19 Osbaldo Dewitt, SG [address] [place] [id number] PCP - General 09/01/19 documented as of this encounter
--- OUTSIDE RECORDS SUMMARY | 2024-09-30 00:21 | XMS_ITS | Encounter Summary ---
Author Organization [facility] Address [address] [place] [address] Care Team Providers Care Cst Name Role Phone Unknown, Provider Primary Care Provider Unava ilable Encounter Details Date Type Department Care Team (Late st Contact Info) Description 07/02/2017 Historical Results Only [facility] Lab - Main [place] [address] [place] [address] Osbaldo Dewitt NP [address] [place], [place] [phone] Social History Tobacco Use Types Packs/Day Years [...] Info) Description 11/11/2024 15:30 EST Office Visit [facility] Integrative Family Medicine [address] [address] Osbaldo Dewitt NP [address] [place] [address] documented as of this encounter Procedures Procedure Name Priority Date/Time Associated Diagnosis Comments LIPID PROFILE (INCLUDES CHOLESTEROL, TRIGLYCERIDES, HDL, LDL) Routine 07/02/2017 8:38 EDT documented in this encounter Results * (ABNORMAL) LIPID PROFILE (INCLUDES CHOLESTEROL, TRIGLYCERIDES, HDL, LDL) (07/02/2017 8:38 EDT) Triglyceride 121 35 - 150 mg/dL 07/02/2017 9:50 EDT [facility] Cholesterol 232(H) 120 - 200 mg/dL 07/02/2017 9:50 EDT [facility] Chol/HDL Ratio 3.2 0 - 4.5 07/02/2017 9:50 EDT [facility] Comment: DESIRABLE RATIO IS LESS THAN 4.1 PATIENTS ARE CONSIDERED AT RISK: WOMEN RATIO >5 MEN RATIO >6 FASTING? - [facility] Yes 7 8:39 EDT [facility] HDL 71(H) 40 - 60 mg/dL 07/02/2017 9:50 EDT [facility] LDL CHOLESTEROL - [facility] 137(H) 60 - 100 mg/dL 07/02/2017 9:50 EDT [facility] Non HDL Cholesterol 161 mg/dl 07/02/2017 9:50 EDT [facility] Comment: Desirable: ?Less than 130 Borderline High: ??130-159 High: ? 160-189 Very High: ?Greater than or equal to 190 07/02/2017 8:38 EDT 07/02/2017 8:38 EDT Narrative [facility] - 07/02/2017 9:50 EDT Does PT Have a Latex Allergy? NO us Osbaldo Dewitt NP CHEMISTRY & BLOOD GAS ORDERABL ES Final Result [facility] documented in this encounter Visit Diagnoses Not on filedocumented in this encounter Care Teams Cst Relationship Specialty Start Date End Date Unknown, Provider, PCP - General 07/18/14 08/31/19 documented as of this encounter
--- OUTSIDE RECORDS SUMMARY | 2024-09-30 00:21 | XMS_ITS | Encounter Summary ---
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 documented in this encounter Plan of Treatment Upcoming Encounters Date Type Department Care Team (Late st Contact Info) Description 11/11/2024 15:30 EST Office Visit [facility] Family [address] [phone] Osbaldo Dewitt NP [address] [place] [phone] documented as of this encounter Visit Diagnoses Diagnosis Rosacea- Primary documented in this encounter Discontinued Medications Medication Sig Discontinue Reason Start Date End Da te doxycycline (PERIOSTAT) 20 mg tablet TAKE TWO TABLETS BY MOUTH EVERY DAY 06/16/2020 12/13/2020 documented as of this encounter Care Teams Medical Corps Officer Relationship Specialty Start Date End Date Osbaldo Dewitt NP [address] [place] [phone] PCP - General 09/01/19 documented as of this encounter
--- OUTSIDE RECORDS SUMMARY | 2024-09-30 00:21 | XMS_ITS | Encounter Summary ---
Author Organization [facility] Address [address] [place] [address] Care Team Providers Care Safety Technician Name Role Phone Osbaldo Dewitt NP Primary Care Provider [phone] Reason for Visit * Reason Onset Date Comments Medications Refill 11/15/2020 Encounter Details Date Type Department Care Team (Late st Contact Info) Description 11/15/2020 Refill [facility] Integrative Family Medicine [facility] [address] [place], [place] [phone] Grace Wright RN Medications Refill Social History Tobacco Use [...] Date End Date clobetasoL (TEMOVATE) 0.05 % creamIndications:L ichen sclerosus et atrophicus Apply topically once a week prn 30 g 3 11/15/2020 documented in this encounter Miscellaneous Notes * Telephone Encounter - Grace Wright, RN - 11/15/2020 1626 EST Refill clobetasol 0.05% cream to [facility] JALEN - 11/09/19 NOV - 11/27/20 Rx(s) escribed to pharmacy. 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 once a week prn Reorder 06/04/2016 11/15/2020 documented as of this encounter Care Teams Safety Technician Relationship Specialty Start Date End Date Osbaldo Dewitt NP [address] [place] [address] PCP - General 09/01/19 documented as of this encounter
--- OUTSIDE RECORDS SUMMARY | 2024-09-30 00:21 | XMS_ITS | Encounter Summary ---
Author Organization [facility] Address [address] [place] [address] Care Team Providers Care Precinct Commanding Officer Name Role Phone Unknown, Provider Primary Care Provider Unava ilable Encounter Details Date Type Department Care Team (Late st Contact Info) Description 07/08/2016 Historical Results Only [facility] Radiology Results [address] [place] [address] Osbaldo Dewitt NP [address] [place], [place] [phone] Social History Tobacco Use Types Packs/Day Years [...] 15:30 EST Office Visit [facility] Integrative Family [facility] [address] [place], [place] [address] Osbaldo Dewitt NP [address] [place], [place] [phone] documented as of this encounter Procedures Procedure Name Priority Date/Time Associated Diagnosis Comments MA BREAST SCREENING JULIAN BILATERAL 07/08/2016 9:07 EDT documented in this encounter Results * MA BREAST SCREENING JULIAN BILATERAL (07/08/2016 9:07 EDT) Anatomical Region Laterality Modality Breast Bilateral Other 07/08/2016 9:07 EDT Narrative 07/09/2016 9:25 EDT ? EXAM: MAMMOGRAM/MAMMO BILATERAL SCREEN W ??EX. D/ (0907) ? CLINICAL INFORMATION: ? Z12.39 SCREENING MAMMO ? COMPARISON: ??2009; 2010; 2012; 2013 ? INDICATION: Screening ? TECHNIQUE: ??Full field digital whole breast 2D (C-view) and 3D CC and ? MLO views of both breasts were obtained. CAD technology was utilized. ? FINDINGS: ??The fibroglandular patterns of the breasts are normal. ? There has been no change when compared to previous mammograms and ? there is no mammographic evidence of cancer. The breasts are of fatty ? density. ? FINAL ASSESSMENT: ??BILATERAL BREAST - Category 1 - Negative. Routine ?mammographic follow-up is recommended. ? These results will be communicated to your patient via a lay letter ? from Radiology. ??If any additional imaging is needed we will contact ? your patient directly. ? OUTSIDE PHYSICAL DAMAGE APPRAISER:kad ?Reported By: Chet De La O MD ? CC: ? Transcribed Date/Time: 07/09/2016 (924) ? Television Mechanic: ANI ? Printed Date/Time: 03/19/2019 (1093) ? PAGE 1 ? Signed Report ? Procedure Note Chet De La O MD - 08/11/2019 EXAM: MAMMOGRAM/MAMMO BILATERAL SCREEN W EX. D/ (0907) CLINICAL INFORMATION: Z12.39 SCREENING MAMMO COMPARISON: 2009; 2010; 2012; 2013 INDICATION: Screening TECHNIQUE: Full field digital whole breast 2D (C-view) and 3D CCand MLO views of both breasts were obtained. CAD technology wasutilized. FINDINGS: The fibroglandular patterns of the breasts are normal. There has been no change when compared to previous mammograms and there is no mammographic evidence of cancer. The breasts are offatty density. FINAL ASSESSMENT: BILATERAL BREAST - Category 1 - Negative.Routine mammographic follow-up is recommended. These results will be communicated to your patient via a lay letter from Radiology. If any additional imaging is needed we willcontact your patient directly. OUTSIDE PHYSICAL DAMAGE APPRAISER:[email or web address] Reported By: Chet De La O MD CC: Transcribed Date/Time: 07/09/2016 (924) Television Mechanic: ANI Printed Date/Time: 03/19/2019 (2963) PAGE 1 Signed Report us Osbaldo Dewitt BAKED AND GRAPHITE INSPECTOR IMG MAMMOGRAPHY ORDERABLES Fin al Result documented in this encounter Visit Diagnoses Not on filedocumented in this encounter Care Teams Precinct Commanding Officer Relationship Specialty Start Date End Date Unknown, Provider, PCP - General 07/18/14 08/31/19 documented as of this encounter
--- OUTSIDE RECORDS SUMMARY | 2024-09-30 00:21 | XMS_ITS | Encounter Summary ---
Author Organization [facility] Address [address] [place] [address] Care Team Providers Care Quartz Miner Blasting Name Role Phone Unknown, Provider Primary Care Provider Unava ilable Encounter Details Date Type Department Care Team (Latest Contact Info) Description 10/25/2014 14:28 EST - 10/25/2014 14:29 EST Hospital Encounter [address] [address] Emelyn Fagan MD [address] [facility] [address] [place] [address] Discharge Disposition: Home or Self Care Social History Tobacco Use Types Packs/Day Years Used Date Smoking Tobacco: Never Assessed Comments Unknown Sex and Gender Information Value Date Recorded Sex Assigned at Female 11/11/2022 11:31 EST Legal Sex Female 18:16 EST Gender Identity Female 11/11/2022 11:31 EST Sexual Orientation Straight 11/11/2022 11 :31 EST documented as of this encounter Discharge Diagnoses Diagnosis 238.2 UNCERTAIN BEHAV NEOPL SKIN[ICD-9-CM] documented in this encounter Discharge Disposition Disposition Code Departure Means Destination Home or Self Care documented in this encounter Plan of Treatment Upcoming Encounters Date Type Department Care Team (Late st Contact Info) Description 11/11/2024 15:30 EST Office Visit [facility] Family Medicine [facility] [address] [place], [place] [phone] Osbaldo Dewitt, SG [address] [place], [place] [phone] documented as of this encounter Visit Diagnoses Not on filedocumented in this encounter Care Teams Quartz Miner Blasting Relationship Specialty Start Date End Date Unknown, Provider, PCP - General 07/18/14 08/31/19 documented as of this encounter
--- OUTSIDE RECORDS SUMMARY | 2024-09-30 00:21 | XMS_ITS | Encounter Summary ---
Author Organization [facility] Address [address] [place] [address] Care Team Providers Care Atomic Physics Professor Name Role Phone Unknown, Provider MD Primary Care Provider Unava ilable Encounter Details Date Type Department Care Team (Latest Contact Info) Description 05/13/2017 14:17 EDT - 05/13/2017 23:59 EDT Hospital Encounter [facility] [address] [place] [address] Unknown, Provider, Discharge Disposition: Home or Self [...] Code Departure Means Destination Home or Self Retirement documented in this encounter Plan of Treatment Upcoming Encounters Date Type Department Care Team (Late st Contact Info) Description 11/11/2024 15:30 EST Office Visit [facility] Family [address] [phone] Osbaldo Dewitt NP [address] [place], [place] [phone] documented as of this encounter Visit Diagnoses Not on filedocumented in this encounter Care Teams Atomic Physics Professor Relationship Specialty Start Date End Date Unknown, Provider, PCP - General 07/18/14 08/31/19 documented as of this encounter
--- OUTSIDE RECORDS SUMMARY | 2024-09-30 00:21 | XMS_ITS | Encounter Summary ---
Author Organization [facility] Address [address] [place] [address] Care Team Providers Care Welt Stitch Cleaner Name Role Phone Osbaldo Dewitt NP Primary Care Provider [phone] Unavailable Reason for Visit * Reason Comments Other Encounter Details Date Type Department Care Team (Late st Contact Info) Description 12/02/2019 Refill [facility] Integrative Family Medicine [facility] [address] [place] [address] Osbaldo Dewitt NP [address] [place] [address] Other Social History Tobacco Use [...] Date End Date doxycycline (PERIOSTAT) 20 mg tablet Take 2 Tabs by mouth daily for 90 days. 180 Tab 1 12/02/2019 06/16/2020 documented in this encounter Miscellaneous Notes * Telephone Encounter - Dat Rojas, BALTA - 12/02/2019 0809 EST Medication Requested: Last OV: 11/09/19 Next OV: 05/09/20 Last Refill: 06/01/2019 Pharmacy Of Choice: [facility] documented in this encounter Plan of Treatment Upcoming Encounters Date Type Department Care Team ([facility] st Contact Info) Description 11/11/2024 15:30 EST Office Visit [facility] Family [address] [phone] Osbaldo Dewitt NP [address] [place] [phone] documented as of this encounter Visit Diagnoses Not on filedocumented in this encounter Discontinued Medications Medication Sig Discontinue Reason Start Date End Da te doxycycline (PERIOSTAT) 20 mg tablet Take 2 Tabs by mouth daily. 12/02/2019 documented as of this encounter Care Teams Welt Stitch Cleaner Relationship Specialty Start Date End Date Osbaldo Dewitt NP [address] [place] [phone] PCP - General 09/01/[address] [place] [phone] Registered Dietitian Clinical Nutrition 10/21/23 documented as of this encounter
--- OUTSIDE RECORDS SUMMARY | 2024-09-30 00:21 | XMS_ITS | Encounter Summary ---
Author Organization [facility] Address [address] [place] [address] Care Team Providers Care Process Equipment Operator Name Role Phone Unknown, Provider Primary Care Provider Unava ilable Encounter Details Date Type Department Care Team (Late st Contact Info) Description 11/13/2018 Historical Results Only [facility] Radiology Results [address] [place] [address] Osbaldo Dewitt NP [address] [place], [place] [phone] Social History Tobacco Use Types Packs/Day Years [...] Info) Description 11/11/2024 15:30 EST Office Visit [facility] Integrative Family [facility] [address] [place], [place] [address] Osbaldo Dewitt NP [address] [place], [place] [phone] documented as of this encounter Visit Diagnoses Not on filedocumented in this encounter Care Teams Process Equipment Operator Relationship Specialty Start Date End Date Unknown, Provider, PCP - General 07/18/14 08/31/19 documented as of this encounter
--- OUTSIDE RECORDS SUMMARY | 2024-09-30 00:21 | XMS_ITS | Encounter Summary ---
Author Organization [facility] Address [address] [place] [address] Care Team Providers Care Insurance Marketing Rep Name Role Phone Osbaldo Dewitt NP Primary Care Provider [phone] Reason for Visit * Reason Comments Insect Bite Encounter Details Date Type Department Care Team (Late st Contact Info) Description 08/13/2020 15:40 EST [facility] [address] [place], [place] [phone] Nava Garnica PA-C [address] [facility] [address] [place] [address] Local reaction to insect sting, accidental or unintentional, initial encounter (Primary Dx) Social History Tobacco Use Types [...] :31 EST documented as of this encounter Progress Notes * Nava Garnica PA-C - 08/13/2020 1540 EST Due to computer system disruption, additional clinical information for this visit is Scanned Note. For patients, please refer to guidance in Measyt on how to locate information. Generally this information will appear as a scanned documents saved in My Documents activity. documented in this encounter Plan of Treatment Upcoming Encounters Date Type Department Care Team (Late st Contact Info) Description 11/11/2024 15:30 EST Office Visit [address] [address] Osbaldo Dewitt NP [address] [place] [address] documented as of this encounter Visit Diagnoses Diagnosis Local reaction to insect sting, accidental or unintentional, initial encounter- Primary documented in this encounter Administered Medications Inactive Administered Medications - up to 3 most recent administrations Medication Order MAR Action Action Date Dose Rate Site predniSONE (DELTASONE) tablet 60 mg 60 mg, oral, Once (Without Time Specified), 1 dose, Starting on 09/13/20 at 1446, Until 08/13/20 at 1425, RoutineIndications:Local reaction to insect sting, accidental or unintentional, initial encounter Given 08/13/2020 14:25 EST 60 mg documented in this encounter Orders Medications Ordered That Jae ht Not Have Been Administered Count Last Ordered Date First Ordered Date predniSONE (DELTASONE) tablet 60 mg 1 09/13 documented in this encounter Care Teams Insurance Marketing Rep Relationship Specialty Start Date End Date Osbaldo Dewitt NP [address] [place] [address] PCP - General 09/01/19 documented as of this encounter
--- OUTSIDE RECORDS SUMMARY | 2024-09-30 00:21 | XMS_ITS | Encounter Summary ---
Author Organization [facility] Address [address] [place] [address] Care Team Providers Care Recoverer Name Role Phone Unknown, Provider Primary Care Provider Unava ilable Encounter Details Date Type Department Care Team (Late st Contact Info) Description 09/05/2016 Historical Results Only [facility] - Main [place] [address] [place] [address] Bird Watkins MD Social History Tobacco Use [...] 11/11/2024 15:30 EST Office Visit [facility] Integrative Family Medicine [facility] [address] [place], [place] [address] Osbaldo Dewitt, SG [address] [place] [address] documented as of this encounter Procedures Procedure Name Priority Date/Time Associated Diagnosis Comments SURGICAL PATHOLOGY Routine 09/05/2016 12 :32 EST documented in this encounter Results * SURGICAL PATHOLOGY (09/05/2016 12:32 EST) 09/05/2016 12:3 2 EST 09/05/2016 12:[address] [facility] - 09/06/2016 13:05 EST ----- ------- Name: SANDIE DUVALL ? : 58 ?Age/Sex: 58/F ?Unit#: [id number] ? Loc: END ? Status: DEP CLI ?? Reg Date: 09/05/16 ? Pt.Phone Number: ? ----- ------- Specimen: [id number] ? STATUS: SOUT ?Spec Date:09/05/16 ? Physician Copies: ?Bird Watkins MD ?? Tissues: A ?? Endoscopy specimen (SPLENIC FLEXURE) ? Osbaldo Dewitt ? CPT: 87882 ?? Units: ??1 ?FINAL DIAGNOSIS ? COLON, SPLENIC FLEXURE, BIOPSY; ? -Tubular adenoma ? GROSS DESCRIPTION ? Received in formalin labeled with the patient's name and Splenic flexure ? polyp is a single mucosal tissue fragment measuring 0.4 cm. es 1 NM ?? PREOP DX/CLINICAL HISTORY ?SCREENING Signed ____(signature on file)____ Juhi Jurado M.D. 09/06/16 ? By the signature above, the attending physician certifies that he/she has personally conducted a gross and/or microscopic examination of the described specimens and rendered or confirmed the above diagnosis. Test Performed by [facility], [address] [place] [address] Bottom Presser: Ewa Glover MD PHD ----- ------- us Bird Watkins MD PATHOLOGY ORDERABLES Final Re sult [facility] documented in this encounter Visit Diagnoses Not on filedocumented in this encounter Care Teams Recoverer Relationship Specialty Start Date End Date Unknown, Provider, PCP - General 07/18/14 08/31/19 documented as of this encounter
--- OUTSIDE RECORDS SUMMARY | 2024-09-30 00:21 | XMS_ITS | Encounter Summary ---
Author Organization [facility] Address [address] [place] [address] Care Team Providers Care Stopper Setter Name Role Phone Osbaldo Dewitt NP Primary Care Provider [phone] Reason for Visit * Reason Comments Other Encounter Details Date Type Department Care Team (Late st Contact Info) Description 06/16/2020 Refill [facility] [place] [facility] [address] [address] Osbaldo Dewitt NP [address] [place] [address] Other Social History Tobacco Use [...] End Date doxycycline (PERIOSTAT) 20 mg tablet TAKE TWO TABLETS BY MOUTH EVERY DAY 180 Tab 3 06/16/2020 03/10/202 1 documented in this encounter Miscellaneous Notes * Telephone Encounter - Grace Eubanks, RN - 06/16/2020 0855 EDT JALEN - 11/09/19 NOV - none last refill - 12/02/19, #180 for 90 days 1 RF OK to refill? documented in this encounter Plan of Treatment Upcoming Encounters Date Type Department Care Team (Late st Contact Info) Description 11/11/2024 15:30 EST Office Visit [facility] [place] [id number] Osbaldo Dewitt NP [address] [place], [place] [phone] documented as of this encounter Visit Diagnoses Not on filedocumented in this encounter Discontinued Medications Medication Sig Discontinue Reason Start Date End Da te doxycycline (PERIOSTAT) 20 mg tablet Take 2 Tabs by mouth daily for 90 days. 12/02/2019 06/16/2020 documented as of this encounter Care Teams Stopper Setter Relationship Specialty Start Date End Date Osbaldo Dewitt NP [address] [place], [place] [phone] PCP - General 09/01/19 documented as of this encounter
--- OUTSIDE RECORDS SUMMARY | 2024-09-30 00:21 | XMS_ITS | Encounter Summary ---
Author Organization [facility] Address [address] [place] [address] Care Team Providers Care Supervisor Underwriting Clerks Name Role Phone Osbaldo Dewitt NP Primary Care Provider [phone] Reason for Visit * Reason Onset Date Comments Medications Refill 11/02/2019 Encounter Details Date Type Department Care Team (Late st Contact Info) Description 11/02/2019 Telephone [facility] [place] [address] [place] [address] Osbaldo Dewitt NP [address] [place] [address] Medications Refill Social History Tobacco [...] Date End Date losartan (COZAAR) 100 mg tabletIndications:H ypertension, unspecified type Take 1 Tab by mouth daily. 90 Tab 11/02/2019 02/03/2020 hydroCHLOROthiazide (HYDRODIURIL) 25 mg tabletIndications:H ypertension, unspecified type Take 1 Tab by mouth daily. 90 Tab 11/02/2019 11/09/2019 documented in this encounter Miscellaneous Notes * Telephone Encounter - Grace Wright, RN - 11/02/2019 1544 EST JALEN -04/20/19 NOV - 11/09/19 last BMP - 10/23/18 Rxs escribed for 90 days NR. GRACE WRIGHT, RN * Telephone Encounter - Kassi Steiner - 11/02/2019 1017 EST Pharmacy called - re: Rx change. Losartin hydrochlorothiazide 100/25 - Need Rx for 100 1x/day. And HCTZ 25mg 1x/day Need Rx to separate these out . documented in this encounter Plan of Treatment Upcoming Encounters Date Type Department Care Team (Late st Contact Info) Description 11/11/2024 15:30 EST Office Visit [facility] [address] [phone] Osbaldo Dewitt, SG [address] [place], [place] [phone] documented as of this encounter Visit Diagnoses Diagnosis Hypertension, unspecified type- Primary documented in this encounter Discontinued Medications Medication Sig Discontinue Reason Start Date End Da te losartan-hydrochlorothiaz juanita (HYZAAR) 100-25 mg per tablet Take 1 Tab by mouth daily. 11/02/2019 hydroCHLOROthiazide (HYDRODIURIL) 25 mg tablet Take 25 mg by mouth daily. Reorder 11/02/2019 losartan (COZAAR) 100 mg tablet Take 100 mg by mouth daily. Reorder 11/02/2019 documented as of this encounter Historical Medications * This list may reflect changes made after this encounter. hydroCHLOROthiazi de (HYDRODIURIL) 25 mg tablet Take 25 mg by mouth daily. 11/02/2019 losartan (COZAAR) 100 mg tablet Take 100 mg by mouth daily. 11/02/2019 added in this encounter Care Teams Supervisor Underwriting Clerks Relationship Specialty Start Date End Date Osbaldo Dewitt NP [address] [place] [id number] PCP - General 09/01/19 documented as of this encounter
--- OUTSIDE RECORDS SUMMARY | 2024-09-30 00:22 | XMS_ITS | Encounter Summary ---
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 hole. Finally, the component was placed and impacted into position and confirmed to be well seated. The Fukuda was carefully removed and the humerus was again externally rotated, taking care not to damage the glenoid component. We then advanced the central humeral pin and it felt solid. We sized the humeral head and selected an anchor of size medium. The punch was then advanced, which also felt solid. Finally we trialed various head sizes and decided upon 44x16. There was approximately 50% anterior-posterior laxity on theshift maneuver and there was no significant laxity on the shuck maneuver. I found this to be ideal. It was placed with the point of maximal rotation just superior and posterior in order to make sure that the head was higher than the tuberosity, but not so high that the supraspinatus was stretched. Three #2 Fiberwires were placed through the bone of the lesser tuberosity. The subscapularis was brought over and easily reached the lesser tuberosity without undue tension in 30 degrees of external ro tation. The three fiberwire sutures were placed in Steven-Denis fashion through the tendon and tied down, then three #2 FiberWire figure of eight sutures were placed in a tendon to tendon fashion. Therepair was judged to be quite good at this point. The wounds were thoroughly irrigated and we worked to obtain meticulous hemostasis. The wound was inspected and found to be dry with no ongoing bleeding, so drain was not required in this case. The deltopectoral interval was closed with 0 Ethibond nonabsorbable green suture and the subcutaneous tissue with 2-0 Vicryl and the skin with 3-0 Monocrylsuture. Sterile dressing was applied, followed by a Cryocuff and a sling in neutral rotation. Postoperative Plan: Postoperative plan will be the standard total shoulder physical therapy protocol starting on postoperative day 1, beginning with 130 degrees of passive supine forward elevation and 30 degrees of passive supine external rotation at the side. Surgical Infection Prevention Bundle Used? N/A Attestation: Case Date: 12/09/2023 I was present and I participated during the entire procedure (does not need to include opening and closing). AIRAM COLBY MD 12/09/2023 documented in this encounter Plan of Treatment Not on file documented as of this encounter Procedures Procedure Name Priority Date/Time Associated Diagnosis Comments XR SHOULDER RIGHT Routine 12/09/2023 10: 00 AM EST TENODESIS,BICEPS TENDON (PROXIMAL) Routine 12/09/2023 9:13 AM EST SURGICAL PATHOLOGY REPORT Routine 12/09/2023 8:32 AM EST SPECIMEN TO PATHOLOGY Routine 12/09/2023 8:32 AM EST Repair Biceps Long Tendon ([id number]) 12/09/2023 7:24 AM EST shoulder pain MODIFIER SIDUS SHOULDER CHANDLER BIOMET 12/09/2023 7:24 AM EST shoulder pain Arthroplasty, Glenohumeral Joint Total Shoulder ([id number]) 12/09/2023 7:24 AM EST shoulder pain TOTAL SHOULDER ARTHROPLASTY Routine 12/09/2023 5:50 AM EST IMPLANTABLE DEVICES SCAN 12/09/2023 12:00 AM EST IMPLANTABLE DEVICES SCAN 12/09/2023 12:00 AM EST documented in this encounter Results * XR Shoulder Right (Generic) (12/09/2023 10:00 AM EST) Anatomical Region Laterality Modality Shoulder Right Digital Radiogra phy Impressions 12/09/2023 4:09 PM EST 1. ??Status post right total shoulder arthroplasty with no immediate hardware complication. I have personally reviewed the image(s) and the resident's interpretation and agree with the findings, Lynda Parekh MD at 12/09/2023 4:09 PM Thank you for letting us participate in the care of this patient. ??If you are a health care provider and have any questions regarding this report, please contact the number below. ??For patients who have questions please contact the health family day care worker that requested your imaging first. ? Narrative 12/09/2023 4:09 PM EST EXAMINATION: XR SHOULDER RIGHT (GENERIC) CLINICAL HISTORY: s/p right TSA (as entered by ordering provider in the order requisition) TECHNIQUE: AP, Grashey, scapular Y, axillary views the right shoulder. COMPARISON: CT right upper extremity without contrast 09/03/2023. FINDINGS: Status post right total shoulder arthroplasty. No periprosthetic fracture. Glenohumeral and acromioclavicular joint spaces are maintained. Normal bony mineralization. Diffuse soft tissue swelling. Expected subcutaneous gas in setting of recent operation. Right upper lung field is clear. Procedure Note Lynda Parekh MD - 12/09/2023 EXAMINATION: XR SHOULDER RIGHT (GENERIC) CLINICAL HISTORY: s/p right TSA (as entered by ordering provider in theorder requisition) TECHNIQUE: AP, Grashey, scapular Y, axillary views the right shoulder. COMPARISON: CT right upper extremity without contrast 09/03/2023. FINDINGS: Status post right total shoulder arthroplasty. No periprosthetic fracture. Glenohumeral and acromioclavicular jointspaces are maintained. Normal bony mineralization. Diffuse soft tissue swelling. Expected subcutaneous gas in setting of recent operation. Right upper lung field is clear. IMPRESSION 1. Status post right total shoulder arthroplasty with no immediatehardware complication. I have personally reviewed the image(s) and the resident's interpretationand agree with the findings, Lynda Parekh MD at 12/09/2023 4:09 PM Thank you for letting us participate in the care of this patient. If youare a health care provider and have any questions regarding this report,please contact the number below. For patients who have questions please contactthe health family day care worker that requested your imaging first. Airam Colby MD IMG DX ORDERABLES * Surgical Pathology Report (12/09/2023 8:32 AM EST) Final Diagnosis [id number] ? Location: [facility]; [facility] [place]; The signing pathologist has (i) examined the relevant preparation(s) for the specimen(s) and (ii) rendered or confirmed the diagnosis(es). . ?Surgical Pathology DIAGNOSIS A. Right shoulder, synovium, excision: - ??Synovium with scarring, myxoid changes, osteoid formation and focal chronic inflammation. See comment. Comment: The histological features are in keeping with injury pattern/ osteoarthritis. While there are some scattered lymphocytic aggregate, the overall features are not supportive of an inflammatory process. Electronically signed by: ?Ekaterina Kaur MD, Simi Verified: ??12/12/2023 9:48 Performed at: ??-[facility] Dept. of Pathology, [place] [address] Lifestyle Coordinator: Darion Andrew MD, FCAP, ??CLIA Certificate: [id number] SPECIMEN(S) SUBMITTED A - Right shoulder synovium, rule out ?? inflammatory ??stenosis, excision (1) CLINICAL INFORMATION s/p TSA Right shoulder synovium, rule out inflammatory stenosis SPECIMEN PROCESSING A - Labeled/Fixative : Right shoulder synovium, rule out inflammatory stenosis, fresh. Quantity/Size: Single, 3.2 x 2.1 x 1.0 cm. Tissue Description: Irregular fragment of pink-red fibrous tissue. Sections/Process ing: Business Development Officer sections in 2 cassettes labeled A1-A2. ??pps 12/12/2023 9:48 AM EST [facility] SYNOVIUM BIOPSY SPECIMEN / Unknown 12/09/2023 8:32 AM EST 12/09/2023 8:32 AM EST iAram Colby MD PATHOLOGY/CYTOLOGY O NATHANIEL Performing Organization Address City/[facility]/ZIP Co de Phone Number [facility] [address] [place] [address] * Specimen to Pathology (12/09/2023 8:32 AM EST) AP Specimen 12/09/2023 8:32 AM EST 12/09/2023 8:32 AM EST Narrative [facility] - 12/09/2023 8:32 AM EST Specimen requisition ordered. ??Separate Pathology report to follow Airam Colby MD PATHOLOGY/CYTOLOGY O NATHANIEL Performing Organization Address City/[facility]/ZIP Co de Phone Number [facility] [place] [address] * SCAN DOC: IMPLANTABLE DEVICES (12/09/2023 12:00 AM EST) Narrative 12/09/2023 12:00 AM EST Ordered by an unspecified provider. Scanning Provider MEDIA MGR SCAN EXT O RDR/RSLT * SCAN DOC: IMPLANTABLE DEVICES (12/09/2023 12:00 AM EST) Narrative 12/09/2023 12:00 AM EST Ordered by an unspecified provider. Scanning Provider MEDIA MGR SCAN EXT O RDR/RSLT documented in this encounter Visit Diagnoses Not on filedocumented in this encounter Administered Medications Inactive Administered Medications - up to 3 most recent administrations Medication Order MAR Action Action Date Dose Rate Site acetaminophen (Tylenol) tablet 975 mg 975 mg, Oral, ONCE, 1 dose, On Fri12/09/23 at 0615, Administer with a SIP of water only. Maximum dose of acetaminophen is 4,000 mg from all sources in 24 hours., Day of Surgery (Day of Procedure), Routine Given 12/09/2023 6:32 AM EST 975 mg fentaNYL (PF) (50 mcg/mL) injection 50 mcg 50 mcg, Intravenous, EVERY 5 MIN PRN, Starting on Fri12/09/23 at 0555, Until Fri12/09/23 at 0709, Pain, or prior to injection of local anesthetic., Hold for respiratory rate less than 8 breaths per minute. (maximum dose 200 mcg), Day of Surgery (Day of Procedure), Routine Given 12/09/2023 6:57 AM EST 50 mcg lactated ringers infusion 1,000 mL, at 100 mL/hr, Intravenous, CONTINUOUS, Starting on Fri12/09/23 at 0615, Until Fri12/09/23 at 1233, Day of Surgery (Day of Procedure) Restarted 12/09/2023 7:25 AM EST New Bag 12/09/2023 6:28 AM EST 1,000 mLs 100 mL/hr midazolam (pf) (Versed) (1 mg/mL) injection 1 mg 1 mg, Intravenous, EVERY 5 MIN PRN, Starting on Fri12/09/23 at 0555, Until Fri12/09/23 at 0709, Other, sedation or prior to injection of local anesthetic, Hold for delirium/agitation. (Maximum dose 5 mg)., Day of Surgery (Day of Procedure), Routine Given 12/09/2023 6:57 AM EST 1 mg oxyCODONE (Roxicodone) tablet 5 mg 5 mg, Oral, EVERY 4 HOURS PRN, Starting on Fri12/09/23 at 0655, Until Fri12/09/23 at 1433, Pain, Routine scopolamine (Transderm-Scop) 1 mg over 3 days patch 1 patch 1 patch, Transdermal, Administer over 24 Hours, ONCE, 1 dose, On Fri12/09/23 at 0700, Day of Surgery (Day of Procedure), Routine Patch Applied 12/09/2023 7:07 AM EST 1 patch 01- Ear Behind (Left) scopolamine (Transderm-Scop) 1 mg patch Patch Verification Transdermal, 2 TIMES DAILY, 2 doses, First dose on Fri12/09/23 at 1845, Last dose on Fri12/10/23 at 0900, Verify scopolamine 1 mg patch., Recovery (Recovery-Hospital Unit) documented in this encounter Active and Recently Administered Medications Times are shown in EST. Scheduled Medication Order 12/07/2023 12/08/2023 12/09/2023 acetaminophen (Tylenol) tablet 975 mg (COMPLETED) 975 mg, Oral, ONCE, 1 dose, On Fri12/09/23 at 0615, Administer with a SIP of water only. Maximum dose of acetaminophen is 4,000 mg from all sources in 24 hours., Day of Surgery (Day of Procedure), Routine 0632 (Given - Provid er: Karolina Abdul RN) scopolamine (Transderm-Scop) 1 mg over 3 days patch 1 patch 1 patch, Transdermal, Administer over 24 Hours, ONCE, 1 dose, On Fri12/09/23 at 0700, Day of Surgery (Day of Procedure), Routine 0707 (Patch Applied - Provider: Karolina Abdul RN)1233 (Due: Patch Removed - Provider: Automatic Discharge Provider - Comment: Time automatically adjusted from order being discontinued) scopolamine (Transderm-Scop) 1 mg patch Patch Verification Transdermal, 2 TIMES DAILY, 2 doses, First dose on Fri12/09/23 at 1845, Last dose on Fri12/10/23 at 0900, Verify scopolamine 1 mg patch., Recovery (Recovery-Hospital Unit) Continuous Medication Order 12/07/2023 12/08/2023 12/09/2023 lactated ringers infusion (CANCELED) 1,000 mL, at 100 mL/hr, Intravenous, CONTINUOUS, Starting on Fri12/09/23 at 0615, Until Fri12/09/23 at 1233, Day of Surgery (Day of Procedure) 0628 (New Bag - Prov ider: Karolina Abdul RN)0724 (Paused - Provider: Selene Hammer CRNA - Comment: Switch to gravity)0725 (Restarted - Provider: Selene Hammer CRNA)0802 (Anesthesia Volume Adjustment - Provider: Selene Hammer CRNA)0926 (Anesthesia Volume Adjustment - Provider: Selene Hammer CRNA)0930 (Stopped - Provider: Selene Hammer CRNA) PRN Medication Order 12/07/2023 12/08/2023 12/09/2023 fentaNYL (PF) (50 mcg/mL) injection 50 mcg (CANCELED) 50 mcg, Intravenous, EVERY 5 MIN PRN, Starting on 12/09/23 at 0555, Until 12/09/23 at 0709, Pain, or prior to injection of local anesthetic., Hold for respiratory rate less than 8 breaths per minute. (maximum dose 200 mcg), Day of Surgery (Day of Procedure), Routine 0657 (Given - Provid er: Karolina Abdul RN) gelatin adsorbable 12-7 mm sponge (CANCELED) PRN, Starting on 12/09/23 at 0803, Until 12/09/23 at 1433, Intra-Operative (Intra-Procedure) 0803 (Given - Provid er: Airam Colby MD) midazolam (pf) (Versed) (1 mg/mL) injection 1 mg (CANCELED) 1 mg, Intravenous, EVERY 5 MIN PRN, Starting on 12/09/23 at 0555, Until 12/09/23 at 0709, Other, sedation or prior to injection of local anesthetic, Hold for delirium/agitation. (Maximum dose 5 mg)., Day of Surgery (Day of Procedure), Routine 0657 (Given - Provid er: Karolina Abdul RN) oxyCODONE (Roxicodone) tablet 5 mg 5 mg, Oral, EVERY 4 HOURS PRN, Starting on 12/09/23 at 0655, Until Tue 324 at 1433, Pain, Routine thrombin (bovine) (Thrombin-Jmi) solution (CANCELED) PRN, Starting on 12/09/23 at 0804, Until Tue 24 at 1433, Intra-Operative (Intra-Procedure) 0804 (Given - Provid er: Airam Colyb MD) documented in this encounter Care Teams Hard Rock Drill Operator Relationship Specialty Start Date End Date Osbaldo Dewitt APRN [address] [place], [place] [phone] PCP - General Family Medicine 12/31/22 documented as of this encounter
--- OUTSIDE RECORDS SUMMARY | 2024-09-30 00:22 | XMS_ITS | Encounter Summary ---
Author Organization [facility] Address [facility] [place] [address] Care Team Providers Care Drum Loader And Unloader Name Role Phone Osbaldo Dewitt APRN Primary Care Provider [phone] Encounter Details Date Type Department Care Team (Latest Contact Info) Description 07/14/2023 Travel Social History Tobacco Use Types Packs/Day Years Used Date Smoking Tobacco: Former Cigarettes Smokeless Tobacco: Never Alcohol Use Standard Drinks/Week Comments Yes 14 (1 standard drink = 0.6 oz pu re alcohol) Sex and Gender Information Value Date Recorded Sex Assigned at Female 01/22/2023 7:48 PM EDT Gender Identity Female 01/22/2023 7:48 PM EDT Sexual Orientation Straight 12/26/2023 1: 48 PM EDT documented as of this encounter Plan of Treatment Not on file documented as of this encounter Visit Diagnoses Not on filedocumented in this encounter Care Teams Drum Loader And Unloader Relationship Specialty Start Date End Date Osbaldo Dewitt APRN [address] [place] [phone] PCP - General Family Medicine 12/31/22 documented as of this encounter
--- OUTSIDE RECORDS SUMMARY | 2024-09-30 00:22 | XMS_ITS | Encounter Summary ---
[place] [address] Care Team Providers Care Fixture Designer Name Role Phone Osbaldo Dewitt APRN Primary Care Provider [phone] Reason for Referral * Occupational Therapy (Routine) - Closed Specialty Diagnoses / Procedures Referred By Reac t Referred To Contact Occupational Therapy Diagnoses Neuralgia and neuritis Chante Salas APRN [facility] [place] [address] [address] Referral ID Status Reason Start Date Expiration Date V isits Requested Visits Authorized [id number] Closed Evaluate and Treat 06/10/2023 12/07/2023 12 12 * Diagnostic Test (Routine) - Closed Specialty Diagnoses / Procedures Referred By Contmorgan t Referred To Contact Neurology Diagnoses Neuralgia and neuritis Chante Salas APRN [facility] [place] [address] [facility] [address] [place] [phone] Referral ID Status Reason Start Date Expiration Date V isits Requested Visits Authorized [id number] Closed Test Only 06/10/2023 06/09/2024 1 1 Reason for Visit * Reason Comments Follow Up Surgery 03-11-23 L TSA Encounter Details Date Type Department Care Team (Late st Contact Info) Description 06/10/2023 8:40 AM EDT Office [place] [phone] Chante Salas APRN [facility] [place] [address] Status post replacement of left shoulder joint (Primary Dx); Neuralgia and neuritis Social History Tobacco Use Types Packs/Day Years [...] - Inhaled Oxygen Concentration - - Weight 111.1 kg (245 lb) 06/10/2023 8:43 AM EDT Height 175.3 cm (5' 9.02) 06/10/2023 8:43 AM ED T Body Mass Index 36.16 06/10/2023 8:43 AM EDT documented in this encounter Progress Notes * Chante Salas APRN - 06/10/2023 8:40 AM EDT PATIENT NAME: Sandie Manriquez AGE: 63 y.o. MR#: [id number] DATE OF VISIT: 06/10/2023 PERTINENT SURGICAL HISTORY: LEFT SHOULDER ANATOMIC TSA. Stem less. DOS: 03/11/2023. Dr. Colby. CHIEF COMPLAINT: 3 months S/P above procedure HISTORY OF PRESENT ILLNESS: Ms. Manriquez a 63 y.o. year old female comes into clinic today for appointment 3 months s/p the above procedures. Overall, things are going quite well with the LEFT shoulder. ROM is functional. No pain about the shoulder. No drenching night sweats. Ms. Manriquez denies any fever/chills or other constitutional signs of infection. She reports ongoing index, middle and 4th fingers numbness since her surgery. Hx of right hand CTS s/p surgery. Modalities for the left hand numbness have including a carpal tunnel splint. No further incisional complaints. No falls or injuries. She admits to feeling better than before her surgery. She is considering right shoulder TSA surgery next December. Patient's medications, allergies, past medical, surgical, social and family histories were reviewedand updated as appropriate. ROS: Denies fever, chills, nausea, vomiting, vision change, shortness of breath, chest pain, visionchanges, headaches, bowel or bladder problem, ear, nose, sinus problem, neuro or psychiatric, or endocrine disorder not addressed above. Questionnaire Responses: 06/09/2023 9:22 AM myD-H Hip & Knee PROMIS-10 General Health Good PROMIS-10 Quality of Life Very Good PROMIS-10 Physical Health Fair PROMIS-10 Mental Health Good PROMIS-10 Social Activity and Relationship Satisfaction Good PROMIS-10 Social Roles at Home and Work Very Good PROMIS-10 Everyday Physical Activities Mostly PROMIS-10 Anxious or Depressed last 7 days Sometimes PROMIS-10 Fatigue last 7 days Mild PROMIS-10 Pain last 7 days 6 PROMIS PHYSICAL HEALTH SCORE (range 16-68) 42.3 PROMIS MENTAL HEALTH SCORE (range 21-68) 45.8 PHYSICAL EXAMINATION: Vitals: 06/10/23 0843 Weight: 111.1 kg (245 lb) Height: 175.3 cm (5' 9.02) Body mass index is 36.16 kg/m??. Ms. Manriquez a 63 y.o. female is alert and oriented.She appears in no acute discomfort and is resting comfortably in a chair in the exam room. Wound Inspection: Surgical incisions are healed without complication. There is no erythema, edema, tenderness or drainage. There is no evidence of infection. Neuro: left index, middle and 4th fingers tingling. + tinel's at both the wrist and ulnar nerve. Noatrophy of the thenar and lesser thenar eminence. Axillary, Radial, ulna and median neuro-motor intact. No motor weakness of the hand. Wrist extension 5/5. Able to make a pinch sign with the thumb and index finger. Hand intrinsics 5/5. ROM: shoulder ROM: AFF : ~ 170 degrees neg drop arm sign. ER: ~ 50 degrees. No lag. IR: ~ L4 L5. RTC strength 5/5 with gentle stress with IR/ER. Skin is warm, dry and well perfused. No new images ASSESSMENT: 3 months s/p LEFT shoulder stem less anatomic TSA doing well in regards to the shoulder. Ongoing LEFT hand tingling consider focal ulnar and carpal tunnel compressive neuritis given findings above. PLAN: I spent approximately 15 minutes of this 20 minute visit discussing Ms. Manriquez surgical procedure and future plan. In regards to the shoulder. Ok to advance activity as pain and function allow. Avoid heavy demand sports until closer to the 6 month time frame. Safe lifting practices. After 6 months high demand sports ok. Should avoid dental work for 6 months post op. We discussed the following: Ongoing neuritis: now that she is 3 months post op things should continue to improve. Yet, now thatshyaron is 3 months out, she would like to discuss tx options further. We can consider a Neurology consult at this time. I have already ordered this as a future order in the computer. Heel teresita for ulnar nerve symptoms. Reviewed appropriate use. OT referral for nerve glides. I have already ordered this as a future order in the computer. LEFT arm. Call Dr. Colby's team in about a month for surgical booking orders for right shoulder TSA surgery ~ December 2023. We discussed the appropriate precautions surrounding dental prophylaxis: we do not recommend antibiotics with dental work after 6 months. Should maintain good foot care and giving prompt attention toany source of infection throughout the body including foot ulcers and urinary tract infections. All of the patients questions and concerns were answered at this visit. The patient understands to contact me if they have any other questions or concerns. The patient is scheduled for a post-op appointment with Dr. Branden Colby for the LEFT shoulder in 9 months with LEFT shoulder x-ray I have already ordered this as a future order in the computer. documented in this encounter Plan of Treatment Scheduled Referrals Name Type Priority Associated Diagnoses Order Schedule Referral to Neurology Outpatient Referral Routine Neuralgia and neuritis Ordered: 06/10/2023 Referral to Occupational Therapy Outpatient Referral Routine Neuralgia and neuritis Ordered: 06/10/2023 documented as of this encounter Visit Diagnoses Diagnosis Status post replacement of left shoulder joint- Primary Neuralgia and neuritis Neuralgia, neuritis, and radiculitis, unspecified documented in this encounter Care Teams Fixture Designer Relationship Specialty Start Date End Date Osbaldo Dewitt APRN [address] [place] [phone] PCP - General Family Medicine 12/31/22 documented as of this encounter
--- OUTSIDE RECORDS SUMMARY | 2024-09-30 00:22 | XMS_ITS | Encounter Summary ---
Author Organization [facility] [place] [address] Care Team Providers Care Data Management Name Role Phone Osbaldo Dewitt APRN Primary Care Provider [phone] Reason for Visit * Diagnostic Test (Routine) - Closed Specialty Diagnoses / Procedures Referred By Chance le Referred To Contact Neurology Diagnoses Neuralgia and neuritis Chante Salas APRN [facility] [address] [place] [address] [facility] [address] [place] [address] Referral ID Status Reason Start Date Expiration Date V isits Requested Visits Authorized [id number] Closed Test Only 06/10/2023 06/09/2024 1 1 Encounter Details Date Type Department Care Team (Latest Contact Info) Description 07/14/2023 11:00 AM EDT Procedure [place] [phone] Aditya Boss MD [facility] [place] [address] Carpal tunnel syndrome on left Social History Tobacco Use Types Packs/Day Years [...] PM EDT documented as of this encounter Progress Notes * Aditya Boss MD - 07/14/2023 11:00 AM EDT Sandie Manriquez referred for EDX studies by Chante Salas APRN [facility] [place] [address] to look for evidence of cervical radiculopathy vs entrapment neuropathy. Report scanned into EDH. Results are consistent with a significant median neuropathy at the left wrist. There is no evidence of ulnar neuropathy nor of left sided cervical radiculopathy. documented in this encounter Plan of Treatment Scheduled Referrals Name Type Priority Associated Diagnoses Orde r Schedule Referral to Neurology Outpatient Referral Routine Neuralgia and neuritis Ordered: 06/10/2023 documented as of this encounter Visit Diagnoses Diagnosis Carpal tunnel syndrome on left Carpal tunnel syndrome documented in this encounter Care Teams Data Management Relationship Specialty Start Date End Date Osbaldo Dewitt APRN [address] [place] [phone] PCP - General Family Medicine 12/31/22 documented as of this encounter
--- OUTSIDE RECORDS SUMMARY | 2024-09-30 00:22 | XMS_ITS | Encounter Summary ---
Author Organization [facility] Address [facility] [place] [address] Care Team Providers Care Solar/Renewable Energy Sales Name Role Phone Osbaldo Dewitt CAMILO Primary Care Provider [phone] Encounter Details Date Type Department Care Team (Latest Contact Info) Description 04/25/2023 1:46 PM EDT - 04/25/2023 11:59 PM EDT Hospital Encounter XRay at [address] [place] [address] Christine Colby MD [facility] [place] [address] s/p left anatomic stemless TSA, 03/11/23 (Dr Colby) Discharge Disposition: Home Social History Tobacco Use [...] PM EDT documented as of this encounter Medications at Time of Discharge Medication Sig Dispensed Refills Start Date End Date gkwaass-hvkn-yzzzz-oreg -capryl 100 mg-150 mg- 50 mg-150 mg Capsule Take by mouth. Just tumeric venlafaxine XR (Effexor-XR) 37.5 mg ER 24 hr capsule Take 37.5 mg by mouth daily. 02/03/2023 omeprazole (PriLOSEC) [address] capsule Take 20 mg by mouth nightly. 01/31/2023 hydroCHLOROthiazide (Hydrodiuril) 25 mg tablet Take 25 mg by mouth daily. 02/03/2023 fluticasone propionate (Flonase) 50 mcg/actuation [place], Suspension 2 sprays by Nasal route Once [...] 0.5 g vaginally. Twice weekly prn 12/07/2020 ondansetron (Zofran) 4 mg tablet Take 1 tablet by mouth every 8 hours as needed for Nausea. 20 tablet 03/11/2023 05/06/2023 senna-docusate (sennosides-docusate sodium) 8.6-50 mg Tablet Take 1 tablet by mouth daily as needed for Constipation. 0 03/11/2023 05/06/2023 losartan (Cozaar) 100 mg tablet Take 100 mg by mouth daily. 01/19/2023 12/08/2023 documented as of this encounter Plan of Treatment Not on file documented as of this encounter Procedures Procedure Name Priority Date/Time Associated Diagnosis Comments XR SHOULDER LEFT Routine 04/25/2023 2:08 PM EDT s/p left anatomic stemless TSA, 03/11/23 (Dr Colby) documented in this encounter Results * XR Shoulder Left (Generic) (04/25/2023 2:08 PM EDT) Anatomical Region Laterality Modality Shoulder Left Digital Radiogra phy Impressions 04/25/2023 4:11 PM EDT 1. ??There is a left total shoulder arthroplasty with no periprosthetic fracture. There is superior subluxation of the glenohumeral joint on the Grashey view, but normal alignment on the other views. These findings could represent some position-dependent instability. Recommend correlation with any signs and symptoms of instability on physical examination. 2. ??Similar appearance of intra-articular body in the axillary recess. Thank you for letting us participate in the care of this patient. ??If you are a health care provider and have any questions regarding this report, please contact the number below. ??For patients who have questions please contact the health acute care physician that requested your imaging first. ? Electronically signed by: Lynda Parekh MD, [facility] ([phone]), at 04/25/2023 4:11 PM Narrative 04/25/2023 4:11 PM EDT EXAMINATION: XR SHOULDER LEFT (GENERIC) CLINICAL HISTORY: s/p left TSA, checking implant alignment (as entered by ordering provider in the order requisition) TECHNIQUE: AP, Grashey, scapular Y, axillary views of the left shoulder. COMPARISON: Left shoulder radiograph 03/11/2023. FINDINGS: There is a left total shoulder arthroplasty. No periprosthetic fracture or bone resorption. There is slight superior subluxation of the humeral head relative to the glenoid on the Grashey view. Ill-defined calcific density projects along the inferior margin of the clinic humeral joint, in a similar position when compared to 03/11/2023. Normal alignment of the acromioclavicular joint. No focal opacities in the visualized portions of the left lung. Procedure Note Lynda Parekh MD - 04/25/2023 EXAMINATION: XR SHOULDER LEFT (GENERIC) CLINICAL HISTORY: s/p left TSA, checking implant alignment (as enteredby ordering provider in the order requisition) TECHNIQUE: AP, Grashey, scapular Y, axillary views of the left shoulder. COMPARISON: Left shoulder radiograph 03/11/2023. FINDINGS: There is a left total shoulder arthroplasty. No periprosthetic fracture orbone resorption. There is slight superior subluxation of the humeral headrelative to the glenoid on the Grashey view. Ill-defined calcific density projectsalong the inferior margin of the clinic humeral joint, in a similar position whencompared to 03/11/2023. Normal alignment of the acromioclavicular joint. No focal opacities in the visualized portions of the left lung. IMPRESSION 1. There is a left total shoulder arthroplasty with no periprostheticfracture. There is superior subluxation of the glenohumeral joint on the Grasheyview, but normal alignment on the other views. These findings could represent some position-dependent instability. Recommend correlation with any signs and symptoms of instability on physical examination. 2. Similar appearance of intra-articular body in the axillary recess. Thank you for letting us participate in the care of this patient. If youare a health care provider and have any questions regarding this report,please contact the number below. For patients who have questions please contactthe health acute care physician that requested your imaging first. Christine Colby MD IMG DX ORDERABLES documented in this encounter Visit Diagnoses Diagnosis s/p left anatomic stemless TSA, 03/11/23 (Dr Colby) documented in this encounter Care Teams Solar/Renewable Energy Sales Relationship Specialty Start Date End Date Osbaldo Dewitt APRN [address] [place] [phone] PCP - General Family Medicine 12/31/22 documented as of this encounter
--- OUTSIDE RECORDS SUMMARY | 2024-09-30 00:22 | XMS_ITS | Encounter Summary ---
Author Organization [facility] Address [facility] [place] [address] Care Team Providers Care Livery Car Driver Name Role Phone Osbaldo Dewitt APRN Primary Care Provider [phone] Encounter Details Date Type Department Care Team (Latest Contact Info) Description 12/30/2023 Travel Social History Tobacco Use Types Packs/Day [...] on filedocumented in this encounter Care Teams Livery Car Driver Relationship Specialty Start Date End Date Osbaldo Dewitt APRN [address] [place] [phone] PCP - General Family Medicine 12/31/22 documented as of this encounter
--- OUTSIDE RECORDS SUMMARY | 2024-09-30 00:22 | XMS_ITS | Encounter Summary ---
Author Organization [facility] Address [facility] [place] [address] Care Team Providers Care Die Stamper Name Role Phone Osbaldo Dewitt APRN Primary Care Provider [phone] Encounter Details Date Type Department Care Team (Latest Contact Info) Description 12/19/2023 Travel Social History Tobacco Use Types Packs/Day [...] on filedocumented in this encounter Care Teams Die Stamper Relationship Specialty Start Date End Date Osbaldo Dewitt APRN [address] [place] [phone] PCP - General Family Medicine 12/31/22 documented as of this encounter
--- OUTSIDE RECORDS SUMMARY | 2024-09-30 00:22 | XMS_ITS | Clinical Summary ---
Author Organization [facility] Address [facility] [place] [address] Care Team Providers Care Diesel Pile Driver Operator Name Role Phone Esdras Osbaldo Piña APRN Primary Care Provider [phone] Allergies Active Allergy Reactions Criticality Noted Date Comments Bee Pollen 05/06/2023 House Dust 05/06/2023 Miconazole Low CIS - Rash Sulfa (Sulfonamide Antibiotics) Medications Medication Sig Dispensed Refills Start Date End Date Status venlafaxine XR (Effexor-XR) 37.5 mg ER 24 hr capsule Take 37.5 mg by mouth daily. 02/03/2023 Active omeprazole (PriLOSEC) [address] capsule Take 20 mg by mouth nightly. 01/31/2023 Active hydroCHLOROthiazide (Hydrodiuril) 25 mg tablet Take 25 mg by mouth daily. 02/03/2023 Active fluticasone propionate (Flonase) 50 mcg/actuation [place], Suspension 2 sprays by Nasal route Once daily as needed. 02/02/2015 Active atenoloL (Tenormin) 25 mg tablet Take 25 mg by mouth daily. 02/03/2023 Active cetirizine (ZyrTEC) 10 mg tablet Take 10 mg by mouth Daily. Active cholecalciferol (Vitamin D3) 1,000 unit tablet Take 1,000 Units by mouth Daily. Active doxycycline (Acticlate) 20 mg tablet Take 20 mg by mouth daily. 02/03/2023 Active estradioL (ESTRACE) 0.01 % (0.1 mg/gram) Cream Place 0.5 g vaginally. Twice weekly prn 12/07/2020 Active bfhcvfa-cnjb-pfogn-oreg -capryl 100 mg-150 mg- 50 mg-150 mg Capsule Take by mouth. Just tumeric Active acetaminophen (Tylenol) 500 mg tablet Take 1,000 mg by mouth 2 times daily. Active dilTIAZem CD (Cardizem CD) 180 mg CD (ER) 24 hr casule Take 240 mg by mouth every morning. 09/18/2023 Active Eliquis 5 mg tablet Take 5 mg by mouth Twice daily. 09/18/2023 Active ondansetron ODT (Zofran-ODT) 4 mg disintegrating tablet Take 1 tablet by mouth every 8 hours as needed for Nausea. 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 Dr. Romero recs to repeat now only if symptomatic - consider repeat in 2024 per pt preference. Depression 11/09/2019 Insomnia 11/09/2019 Lichen sclerosus et atrophicus 11/09/2019 Pure hypercholesterolemia 11/09/2019 Rosacea 11/09/2019 Hypertension 11/02/2019 Social History Tobacco Use Types Packs/Day Years [...] Orientation Straight 12/26/2023 1: 48 PM EDT Last Filed Vital Signs Vital Sign Reading Time Taken Comments Blood Pressure 126/75 12/30/2023 1:24 PM EDT Pulse 67 12/30/2023 1:24 PM EDT Temperature 36.6 ??C (97.9 ??F) 12/09/2023 12:[address] Respiratory Rate 16 12/09/2023 11:45 AM EST Oxygen Saturation 92% 12/09/2023 11:45 AM EST Inhaled Oxygen Concentration - - Weight 97.5 kg (215 lb) 01/27/2024 8:06 AM EDT Height 174.6 cm (5' 8.75) 01/27/2024 8:06 AM ED T Body Mass Index 31.98 01/27/2024 8:06 AM EDT Plan of Treatment Health Maintenance Due Date Last Done Comments CT Colonography 1959 Colonoscopy 1959 Colorectal Cancer Screening 1959 FIT DNA 1959 FIT 1959 Sigmoidoscopy (10 year) with FIT yearly 1959 Sigmoidoscopy 1959 HIV screen 1977 Hepatitis C Screening 1977 Lipid Screening 1977 Tetanus/Diphtheria/Pertussis Vaccines (1 - Tdap) 05/18 HPV test 1989 PAP Smear 1989 Breast Cancer Share Decision Needed 1999 Breast Cancer screening 1999 Diabetes Screening (HgbA1C or Glucose) 1999 Pneumoccocal Vaccine: 65+ (1 of 1 - PCV) 2009 Zoster vaccine (1 of 2) 2009 Advance Directive 2014 Bone Density Scan 2024 Covid-19 Vaccine (1 - season) 2024 Influenza (Flu) vaccine (1 o f 1 - Influenza standard series) 06/06/2024 Medical Devices Implanted Type Area Trade Clerk Device Identifier Shelf Expiration Date Model / Serial / Lot Cement Bone Medium Viscosity 20gm Half Dose Pmma Cmw ([id number]) - [id number] Implanted:Qty : 1 on 03/11/2023 by Christine Colby MD at [facility] IMPLANTS Left: Shoulder [facility] [facility] [facility] [id number] 08/05/2025 3322-020 / / [id number] Component Glenoid Sz 4 4 Peg Modular [place] ([id number]) (Autoreq) - [id number] Implanted:Qty : 1 on 03/11/2023 by Christine Colby MD at [facility] IMPLANTS Left: Shoulder CHANDLER BIOMET - CHANDLER BIO [id number] 01/13/2028 [id number] / / [id number] Component Glenoid Modular Post [place] Glen Trabecular Metal (3330977) (Autoreq) - [id number] Implanted:Qty : 1 on 03/11/2023 by Christine Colby MD at [facility] IMPLANTS Left: Shoulder CHANDLER [employer]OMET - CHANDLER BIO [id number] 12/07/2032 [id number] / / [id number] Humeral Anchr Shldr 48y36yg Prsft Stem Free Med Ti Sidus (1898375) (Autoreq) - [id number] Implanted:Qty : 1 on 03/11/2023 by Christine Colby MD at [facility] IMPLANTS Left: Shoulder CHANDLER BIOMET - CHANDLER BIO [id number] 11/30/2031 01.05322.12 0 / / [id number] Head Humeral Shoulder 72v06dn Stem Free Cocr Sidus (2865369) (Autoreq) - [id number] Implanted:Qty : 1 on 03/11/2023 by Christine Colby MD at [facility] IMPLANTS Left: Shoulder CHANDLER BIOMET - CHANDLER BIO [id number] 07/25/2031 01.42483.42 0 / / [id number] Humeral Anchr Shldr 76s39xm Prsft Stem Free Med Ti Sidus (9057558) (Autoreq) - [id number] Implanted:Qty : 1 on 12/09/2023 by Christine Colby MD at [facility] IMPLANTS Right: Shoulder CHANDLER [employer]OMET - CHANDLER BIO [id number] 11/21/2032 01.08039.12 0 / / [id number] Head Humeral Shoulder 33n58ep Stem Free Sidus (2815867) (Autoreq) - [id number] Implanted:Qty : 1 on 12/09/2023 by Christine Colby MD at [facility] IMPLANTS Right: Shoulder CHANDLER BIOMET - CHANDLER BIO [id number] 03/14/2033 [id number] / / [id number] Cement Bone Medium Viscosity 20gm Half Dose Pmma Cmw (9294278) - [id number] Implanted:Qty : 1 on 12/09/2023 by Christine Colby MD at [facility] IMPLANTS Right: Shoulder [employer] [facility] [id number] 04/04/2026 3322-020 / / [id number] Component Glenoid Sz 4 4 Peg Modular [place] (9551207) (Autoreq) - [id number] Implanted:Qty : 1 on 12/09/2023 by Christine Colby MD at [facility] IMPLANTS Right: Shoulder CHANDLER BIOMET - CHANDLER BIO [id number] 11/06/2028 [id number] / / [id number] Component Glenoid Modular Post [place] Trabecular Metal (2995583) (Autoreq) - [id number] Implanted:Qty : 1 on 12/09/2023 by Christine Colby MD at [facility] IMPLANTS Right: Shoulder CHANDLER BIOMET - CHANDLER BIO [id number] 09/22/2033 [id number] / / [id number] Explanted Type Area Trade Clerk Device Identifier Shelf Expiration Date Model / Serial / Lot Pin Fix [id number] Threaded Sgl End Ss Kay (1980194) (Autoreq) - [id number] Explanted:Qt y: 1 on 03/11/2023 by Christine Colby MD at [facility] IMPLANTS Left: Shoulder CHANDLER [employer]OMET - CHANDLER BIO [id number] 01/01/2033 [id number] / / [id number] Advance Directives * Full Code (Latest Code Status on File) Date Activated Date Inactivated Comments 03/11/2023 9:21 AM 12/09/2023 5:43 AM Question Answer Comments Does patient have capacity to make decision: Yes Care Teams Diesel Pile Driver Operator Relationship Specialty Start Date End Date Osbaldo Dewitt APRN [address] [place] [phone] PCP - General Family Medicine 12/31/22
--- OUTSIDE RECORDS SUMMARY | 2024-09-30 00:22 | XMS_ITS | Encounter Summary ---
Author Organization [facility] [address] Care Team Providers Care Career Services Coordinator Name Role Phone Osbaldo Dewitt CAMILO Primary Care Provider [phone] Reason for Visit * Reason Onset Date Comments Prior Authorization 08/11/2023 Encounter Details Date Type Department Care Team (Late st Contact Info) Description 08/11/2023 Telephone [place] [address] Christine Colby MD [facility] [address] [place] [address] Prior Authorization Social History Tobacco Use Types Packs/Day Years [...] PM EDT documented as of this encounter Miscellaneous Notes * Telephone Encounter - [employer] - 08/11/2023 3:18 PM EST Contacted Munir for prior authorization at [phone] and [phone] Authorization Status: Approved Prior Authorization Approval Number: [id number] Valid dates: 08/11/23-02/07/24 Order and demographics faxed to [facility] at [phone] Left message on patient's voice mail to inform authorization was complete and to contact [facility] to schedule study. documented in this encounter Plan of Treatment Not on file documented as of this encounter Visit Diagnoses Not on filedocumented in this encounter Care Teams Career Services Coordinator Relationship Specialty Start Date End Date Osbaldo Dewitt APRN [address] [place] [phone] PCP - General Family Medicine 12/31/22 documented as of this encounter
--- OUTSIDE RECORDS SUMMARY | 2024-09-30 00:22 | XMS_ITS | Encounter Summary ---
Author Organization [facility] [address] Care Team Providers Care Floor Trader Name Role Phone Osbaldo Dewitt Yaron PAGE Primary Care Provider [phone] Reason for Visit * Auth/Cert (Routine) Specialty Diagnoses / Procedures Referred By Chance t Referred To Contact Diagnoses shoulder arthritis Procedures PRO ARTHROPLASTY GLENOHUMERAL JOINT TOTAL SHOULDER PRO REPAIR BICEPS LONG TENDON TOTAL SHOULDER ARTHROPLASTY (WRVU 22.13) MODIFIER BEACH CHAIR SCHLEIN TENODESIS,BICEPS TENDON (PROXIMAL) (WRVU 10.17) Airam Colby MD [facility] [place] [address] [facility] Referral ID Status Reason Start Date Expiration Date Visits Re quested Visits Authorized [id number] 1 1 Encounter Details Date Type Department Care Team (Late st Contact Info) Description 12/09/2023 7:30 AM EST - 12/09/2023 10:30 AM EST Surgery [place] [address] Airam Colby MD [facility] [place] [address] TOTAL SHOULDER ARTHROPLASTY (WRVU 22.13) Social History Tobacco Use Types Packs/Day Years [...] Sign Reading Time Taken Comments Blood Pressure 132/80 12/09/2023 10:30 AM EST Pulse 60 12/09/2023 10:30 AM EST Temperature 36 ??C (96.8 ??F) 12/09/2023 9:34 AM EST Respiratory Rate 18 12/09/2023 10:3 0 AM EST Oxygen Saturation 91% 12/09/2023 10: 30 AM EST Inhaled Oxygen Concentration - - [...] 24 hours, please call the Anesthesiology Department: [phone] Shortness of breath: If you have severe shortness of breath that seems to go on and on, please go to the nearest ER (emergency room). If a nerve block lasts longer than 48 hours, take action. If the nerve block does not wear off within 48 hours, please call the Anesthesiology Department: [phone] Protect the part of your body that [...] the Anesthesiology Department with concerns or questions: [phone] After hours: Call the hospital machine operator packaging and ask for the anesthesiologist (titi oliveros) lead web application developer: [phone] Updated: 08/13/21Scopolamine Patch Discharge Instructions You are [...] Program 8a-5pm Friday-Friday. All other times, call [phone] and ask for the anesthesiologist lead web application developer. * Patient Instructions* Bird Corona MD - [...] bowel movement. You can also take an qmib-stj-acvuhwb medication, Miralax if needed tocombat constipation. 2. [...] air or lightly covered. Call your doctor ([phone]) if you develop: Fever greater than 100.5 [...] 1. You will have follow-up appointments at [facility] as indicated below in Future Appointment and Orders. Future Appointments Date Time Provider Department Center 12/26/2023 2:30 PM Joan Sow PA [facility] ORTH 3A [facility] If you have questions or concerns: Friday [...] 1,000 mg by mouth 2 times daily. diwstfy-gckj-kqzoz-oreg-c vernell 100 mg-150 mg- 50 mg-150 mg Capsule Take by mouth. Just tumeric venlafaxine XR (Effexor-XR) 37.5 mg ER 24 hr capsule Take 37.5 mg by mouth daily. 02/03/2023 omeprazole (PriLOSEC) [address] capsule Take 20 mg by mouth nightly. 01/31/2023 hydroCHLOROthiazide (Hydrodiuril) 25 mg tablet Take 25 mg by mouth daily. 02/03/2023 fluticasone propionate (Flonase) 50 mcg/actuation [place], Suspension 2 sprays by Nasal route Once [...] 22.13) performed by Airam Colby MD at [facility] MAIN OR PRO REPAIR BICEPS LONG TENDON Left 03/11/2023 TENODESIS,BICEPS TENDON (PROXIMAL) (WRVU 10.17) performed by Airam Colby MD at [facility] MAIN OR Home Medications: Medications Prior to [...] 5 mg by mouth Twice daily. 12/05/2023 btskchj-sprv-ksaps-oreg-capryl 100 mg-150 mg- 50 mg-150 mg Capsule Take by mouth. Just tumeric 12/06/2023 fluticasone propionate (Flonase) 50 mcg/actuation [place], Suspension 2 sprays by Nasal route Once [...] Colby M.D., M.S. Professor of Orthopaedic Surgery [facility] [employer] [facility] Department [place] [address] documented in this encounter Miscellaneous Notes * Op Note - Airam Colby MD - 12/09/2023 7:55 AM EST [facility] Operative Note Patient Name: Sandie Manriquez : [id number] MR#: [id number] Case Date: 12/09/2023 Surgeon: Surgeon(s) and Role: * Airam Colby MD - Primary * Bird Corona MD - Resident - Assisting * Joan Sow PA - Physician Military Pilot Preoperative diagnosis: shoulder pain Postoperative diagnosis: shoulder [...] Used: Chandler Sidus TSA System with Chandler [place] Glenoid Leon: medium Head: 44x16 Glenoid: Size 4 with 4 peg configuration and center TM post Pre-operative Evaluation: The patient was identified in the preoperative holding area. After confirming that the right shoulder was the correct site of surgery with both the patient and the informed consent, a [place] was placed on the operative shoulder. The [...] 8:32 AM EST Repair Biceps Long Tendon (22011) 12/09/2023 7:24 AM EST shoulder pain MODIFIER SIDUS SHOULDER CHANDLER BIOMET 12/09/2023 7:24 AM EST shoulder pain Arthroplasty, Glenohumeral Joint Total Shoulder (35197) 12/09/2023 7:24 AM EST shoulder pain TOTAL [...] who have questions please contact the health career transition specialist that requested your imaging first. ? Narrative [...] patients who have questions please contactthe health career transition specialist that requested your imaging first. Airam Colby MD IMG DX ORDERABLES * Surgical Pathology Report (12/09/2023 8:32 AM EST) Final Diagnosis [id number] ? Location: [facility]; [facility]; The signing pathologist has (i) examined the [...] MD, Simi Verified: ??12/12/2023 9:48 Performed at: ??-[facility] Dept. of Pathology, [place] [address] Acid Pump Operator: Darion Andrew MD, FCAP, ??CLIA Certificate: [id number] SPECIMEN(S) SUBMITTED A - Right shoulder synovium, rule out ?? inflammatory ??stenosis, excision (1) CLINICAL INFORMATION s/p TSA Right shoulder synovium, rule out inflammatory stenosis SPECIMEN PROCESSING A - Labeled/Fixative : Right shoulder synovium, rule out inflammatory stenosis, fresh. Quantity/Size: Single, 3.2 x 2.1 x 1.0 cm. Tissue Description: Irregular fragment of pink-red fibrous tissue. Sections/Process ing: Ui Architect sections in 2 cassettes labeled A1-A2. ??pps 12/12/2023 9:48 AM EST [facility] SYNOVIUM BIOPSY SPECIMEN / Unknown 12/09/2023 8:32 AM EST 12/09/2023 8:32 AM EST Airam Colby MD PATHOLOGY/CYTOLOGY O NATHANIEL Performing Organization Address City/[facility]/ZIP Co de Phone Number [facility] [address] [place] [address] * Specimen to Pathology (12/09/2023 8:32 AM EST) AP Specimen 12/09/2023 8:32 AM EST 12/09/2023 8:32 AM EST Narrative [facility] - 12/09/2023 8:32 AM EST Specimen requisition ordered. ??Separate Pathology report to follow Airam Colby MD PATHOLOGY/CYTOLOGY O NATHANIEL Performing Organization Address City/[facility]/ZIP Co de Phone Number [facility] [place] [address] * SCAN DOC: IMPLANTABLE DEVICES (12/09/2023 12:00 [...] Given 12/09/2023 6:57 AM EST 50 mcg gelatin adsorbable 12-7 mm sponge PRN, Starting on Fri12/09/23 at 0803, Until Fri12/09/23 at 1433, Intra-Operative (Intra-Procedure) Given 12/09/2023 8:03 AM EST 1 each 19- Surgical Site lactated ringers infusion 1,000 mL, at 100 [...] scopolamine 1 mg patch., Recovery (Recovery-Hospital Unit) thrombin (bovine) (Thrombin-Jmi) solution PRN, Starting on Fri12/09/23 at 0804, Until Fri12/09/23 at 1433, Intra-Operative (Intra-Procedure) Given 12/09/2023 8:04 AM EST 5,000 Units 19- Surgical Site documented in this encounter Active and Recently [...] at 100 mL/hr, Intravenous, CONTINUOUS, Starting on e 12/09/23 at 0615, Until 12/09/23 at 1233, Day of Surgery (Day of Procedure) 0628 (New Bag - Prov ider: Karolina Abdul RN)07 (Paused - Provider: Selene Hammer CRNA - Comment: Switch to gravity)07 (Restarted - Provider: Selene Hammer CRNA)08 (Anesthesia Volume Adjustment - Provider: Selene Hammer CRNA)09 (Anesthesia Volume Adjustment - Provider: Selene Hammer CRNA)0930 (Stopped - Provider: Selene Hammer CRNA) PRN Medication Order 12/07/2023 12/08/2023 12/09/2023 fentaNYL (PF) (50 mcg/mL) injection 50 mcg (CANCELED) 50 mcg, Intravenous, EVERY 5 MIN PRN, Starting on e 12/09/23 at 0555, Until 12/09/23 at 0709, Pain, or prior to injection of local anesthetic., Hold for respiratory rate less than 8 breaths per minute. (maximum dose 200 mcg), Day of Surgery (Day of Procedure), Routine 0657 (Given - Provid er: Karolina Abdul RN) gelatin adsorbable 12-7 mm sponge (CANCELED) PRN, Starting on e 12/09/23 at 0803, Until 12/09/23 at 1433, [...] Oral, EVERY 4 HOURS PRN, Starting on 12/08/24 at 0655, Until Fri12/09/23 at 1433, Pain, Routine thrombin (bovine) (Thrombin-Jmi) solution (CANCELED) PRN, Starting on Fri12/09/23 at 0804, Until Fri12/09/23 at 1433, Intra-Operative (Intra-Procedure) 0804 (Given - Provid er: Airam Colby MD) documented in this encounter Care Teams Floor Trader Relationship Specialty Start Date End Date Osbaldo Dewitt APRN [address] [place] [phone] PCP - General Family Medicine 12/31/22 documented as of this encounter
--- OUTSIDE RECORDS SUMMARY | 2024-09-30 00:22 | XMS_ITS | Encounter Summary ---
Author Organization [facility] Address [facility] [place] [address] Care Team Providers Care Health And Safety Advisor Name Role Phone Osbaldo Dewitt CAMILO Primary Care Provider [phone] Encounter Details Date Type Department Care Team (Latest Contact Info) Description 01/27/2024 7:28 AM EDT - 01/27/2024 11:59 PM EDT Hospital Encounter XRay at [address] [place] [address] Christine Colby MD [facility] [place] [address] s/p right anatomic stemless TSA, 12/09/23 (Dr Colby); s/p left anatomic stemless TSA, 03/11/23 (Dr Colby) Discharge Disposition: Home Social History Tobacco Use Types Packs/Day Years Used Date Smoking Tobacco: Former Cigarettes Smokeless Tobacco: Never Alcohol Use Standard Drinks/Week Comments Yes 14 (1 standard drink = 0.6 oz pu re alcohol) [facility] Inpatient Questions Answer Date Recorded Does Anyone [...] 1,000 mg by mouth 2 times daily. jqutslg-ktmz-rxwyr-oreg-ca pryl 100 mg-150 mg- 50 mg-150 mg Capsule Take by mouth. Just tumeric venlafaxine XR (Effexor-XR) 37.5 mg ER 24 hr capsule Take 37.5 mg by mouth daily. 02/03/2023 omeprazole (PriLOSEC) [address] capsule Take 20 mg by mouth nightly. 01/31/2023 hydroCHLOROthiazide (Hydrodiuril) 25 mg tablet Take 25 mg by mouth daily. 02/03/2023 fluticasone propionate (Flonase) 50 mcg/actuation [place], Suspension 2 sprays by Nasal route Once [...] 0.5 g vaginally. Twice weekly prn 12/07/2020 documented as of this encounter Plan of Treatment Not on file documented as of this encounter Procedures Procedure Name Priority Date/Time Associated Diagnosis Comments XR SHOULDER BILAT Routine 01/27/2024 7:4 7 AM EDT s/p right anatomic stemless TSA, 12/09/23 (Dr Colby) s/p left anatomic stemless TSA, 03/11/23 (Dr Colby) documented in this encounter Results * XR Shoulder Bilat (Generic) (01/27/2024 7:47 AM EDT) WORKSTATION ID [id number] [facility] Anatomical Region Laterality Modality Shoulder Bilateral Digital Radiogra phy Impressions 01/27/2024 1:24 PM EDT Bilateral total shoulder arthroplasties without evidence of complication. I have personally reviewed the image(s) and the resident's interpretation and agree with the findings, Ruth Gamboa MD at 01/27/2024 1:24 PM Thank you for letting us participate in the care of this patient. ??If you are a health care provider and have any questions regarding this report, please contact the number below. ??For patients who have questions please contact the health children's zoo caretaker that requested your imaging first. ? Electronically signed by: Ruth Gamboa MD, [facility] ([phone]), at 01/27/2024 1:24 PM Narrative 01/27/2024 1:24 PM EDT EXAMINATION: XR SHOULDER BILAT (GENERIC) CLINICAL HISTORY: bilat shoulder TSA M19.011, Primary osteoarthritis, right shoulder - M19.012, Primary osteoarthritis, left shoulder TECHNIQUE: AP internal rotation, Grashey, scapular Y and axillary views BILATERAL shoulders COMPARISON: Radiographs of left shoulder 04/25/2023, right shoulder 12/09/2023 FINDINGS: Left shoulder: There is stemless left total shoulder arthroplasty. Alignment is unchanged. Prosthetic components are intact without periprosthetic lucency or fracture. No focal soft tissue abnormality. Right shoulder: There is stemless right total shoulder arthroplasty. Alignment is unchanged. Prosthetic components are intact without periprosthetic lucency or fracture. Interval resolution of postsurgical soft tissue emphysema. Bilateral acromioclavicular and sternoclavicular joints are congruent. Cervicothoracic spine degeneration is partially included in the gteik-gv-nlbu. Visualized lung mensah are clear. Procedure Note Ruth Gamboa MD - 01/27/2024 EXAMINATION: XR SHOULDER BILAT (GENERIC) CLINICAL HISTORY: bilat shoulder TSA M19.011, Primary osteoarthritis, right shoulder - M19.012, Primary osteoarthritis, left shoulder TECHNIQUE: AP internal rotation, Grashey, scapular Y and axillary views BILATERALshoulders COMPARISON: Radiographs of left shoulder 04/25/2023, right shoulder 12/09/2023 FINDINGS: Left shoulder: There is stemless left total shoulder arthroplasty.Alignment is unchanged. Prosthetic components are intact without periprosthetic lucencyor fracture. No focal soft tissue abnormality. Right shoulder: There is stemless right total shoulder arthroplasty.Alignment is unchanged. Prosthetic components are intact without periprostheticlucency or fracture. Interval resolution of postsurgical soft tissue emphysema. Bilateral acromioclavicular and sternoclavicular joints are congruent. Cervicothoracic spine degeneration is partially included in xehjixwz-oh-vgjt. Visualized lung mensah are clear. IMPRESSION Bilateral total shoulder arthroplasties without evidence ofcomplication. I have personally reviewed the image(s) and the resident's interpretationand agree with the findings, Ruth Gamboa MD at 01/27/2024 1:24 PM Thank you for letting us participate in the care of this patient. If youare a health care provider and have any questions regarding this report,please contact the number below. For patients who have questions please contactthe health children's zoo caretaker that requested your imaging first. Electronically signed by: Ruth Gamboa MD, [facility]([phone]), at 01/27/2024 1:24 PM Christine Colby MD IMG DX ORDERABLES documented in this encounter Visit Diagnoses Diagnosis s/p right anatomic stemless TSA, 12/09/23 (Dr Colby) s/p left anatomic stemless TSA, 03/11/23 (Dr Colby) documented in this encounter Care Teams Health And Safety Advisor Relationship Specialty Start Date End Date Osbaldo Dewitt APRN [address] [place] [address] [phone] PCP - General Family Medicine 12/31/22 documented as of this encounter
--- OUTSIDE RECORDS SUMMARY | 2024-09-30 00:22 | XMS_ITS | Encounter Summary ---
Author Organization [facility] Address [facility] [place] [address] Care Team Providers Care Leather Grader Name Role Phone Osbaldo Dewitt APRN Primary Care Provider Encounter Details Date Type Department Care Team (Latest Contact Info) Description 05/06/2023 Travel Social History Tobacco Use Types Packs/Day [...] on filedocumented in this encounter Care Teams Leather Grader Relationship Specialty Start Date End Date Osbaldo Dewitt APRN [address] [place] [phone] PCP - General Family Medicine 12/31/22 documented as of this encounter
--- OUTSIDE RECORDS SUMMARY | 2024-09-30 00:22 | XMS_ITS | Encounter Summary ---
Author Organization [facility] Address [facility] [place] [address] Care Team Providers Care Letter Stamping Machine Operator Name Role Phone Osbaldo Dewitt CAMILO Primary Care Provider [phone] Reason for Visit * Reason Comments Follow-up XR RIGHT TSA D OS:12-09-23 Encounter Details Date Type Department Care Team (Late st Contact Info) Description 01/27/2024 8:30 AM EDT Office [place] [address] Joan Sow PA [facility] [place] [address] s/p right anatomic stemless TSA, 12/09/23 (Dr Colby) (Primary Dx); s/p left anatomic stemless TSA, 03/11/23 (Dr Colby) Social History Tobacco Use Types Packs/Day Years Used Date Smoking Tobacco: Former Cigarettes Smokeless Tobacco: Never Alcohol Use Standard Drinks/Week Comments Yes 14 (1 standard drink = 0.6 oz pu re alcohol) [facility] Inpatient Questions Answer Date Recorded Does Anyone [...] Mass Index 31.98 01/27/2024 8:06 AM EDT documented in this encounter Progress Notes * Joan Sow PA - 01/27/2024 8:30 AM EDT Images from the original note were not included. Patient Name: Sandie Manriquez AGE: 63 y.o. MR#: [id number] Date of Visit: 01/27/2024 Procedure: right anatomic total shoulder arthroplasty, 12/09/23, Dr. Colby Left anatomic total shoulder arthroplasty, 03/11/23, Dr Colby Chief Complaint: ~ 6 weeks right anatomic TSA, 10 months status post left TSA History of Present Illness: Ms. Manriquez is a 63 y.o. female who presents s/p the above procedures for office follow up. Overall reports that she is doing very well, she recently discontinued the sling on the right. She is continuing to work with physical therapy about once a week. He denies concerns with incisions. She has some discomfort over the anterior aspect of the shoulder but is not limiting to her. She is happy with results from her left total shoulder and feels that her range of motionis doing very well Physical Exam: Ht 174.6 cm (5' 8.75) Wt 97.5 kg (215 lb) BMI 31.98 kg/m?? General appearance: in no acute distress, alert, cooperative Psych: cooperative with exam, appropriate Head: normocephalic, atraumatic EENT: EOMI grossly intact Lungs: non-labored respirations Musculoskeletal: Inspection: incision site is well healed on both sides Palpation: no TTP ROM/Strength: shoulder ROM FF right to ~100 active, 140 passive. Left shoulder FF active to 140, ERbilat to 45, IR right to PSIS. Orthopedic testing: Mildly positive bear hug R>L. Negative belly press Neurovascular: sensation grossly intact to light touch of the upper extremity including axillary distribution, 2+ radial pulse Diagnostic Studies: I personally reviewed x-rays of both the right and left shoulder; they both demonstrate normal glenohumeral joint alignment without acute postoperative complications. Survey Responses: 01/26/2024 [facility] Followup Visit PROMIS-10 General Health Good PROMIS-10 Quality of Life Very Good PROMIS-10 Physical Health Good PROMIS-10 Mental Health Very Good PROMIS-10 Social Activity Very Good PROMIS-10 Everyday Activities Mostly PROMIS-10 Pain 0 -No Pain PROMIS-10 Fatigue Mild PROMIS-10 Social Roles Very Good PROMIS-10 Anxious or Depressed Rarely PROMIS PHYSICAL HEALTH SCORE (range 16-68) 50.8 PROMIS MENTAL HEALTH SCORE (range 21-68) 53.3 Gone to ER since surgery Yes Where was ER located? [place], [place] Date of ER visit 12/13/2023 Reason for ER visit A-fib Admitted to hospital since recent ortho surgery No Additional surgery on same body part No Satisfaction with Treatment Satisfied Choose Same Treatment Again Definitely yes 01/26/2024 [facility] Response ASES VAS-RIGHT 1 ASES ADL-RIGHT ARM 18 ASES RIGHT ARM 75 No data to display Assessment/Plan: Sandie is a 63 y.o. female who presents s/p right anatomic total shoulder arthroplasty approximately 6 weeks ago and left anatomic total shoulder performed approximately 10 months ago. Regarding her left side she is doing very well and she may continue with activities as tolerated. Her right side we discussed that she is still early in recovery, she has great passive range of motion still struggling somewhat with active forward flexion. She should continue with physical therapy, avoid lifting more than 2 to 5 pounds. She does have some very mild weakness in her subscapularis this is more pronounced on the right side but is reasonable at this standpoint as she is only about 6 weeks out from surgery. Discussed follow-up in about 6 weeks for her right side, we do not need to see her for 2 years for the left unless there is issues. On her right side we can follow-up with her in person or via telehealth. We discussed the appropriate precautions surrounding dental prophylaxis; according to the AAOS Appropriate Use Criteria we do not recommend antibiotic use prior to dental procedures for Sandie. Avoid elective dental work and cleanings for 6 months post-op. Contact our office should any urgent dental issues arise. If Sandie has any changes in health status we recommend she contact our office prior to dental procedures for updated recommendations Sandie was in understanding and agreement of the plan. Questions solicited and answered. Knows sonal with questions or concerns DMITRY Rivera 01/27/2024 8:25 AM The above documentation was completed using [employer] voice recognition software. documented in this encounter Plan of Treatment Not on file documented as of this encounter Visit Diagnoses Diagnosis s/p right anatomic stemless TSA, 12/09/23 (Dr Colby)- Primary s/p left anatomic stemless TSA, 03/11/23 (Dr Colby) documented in this encounter Care Teams Letter Stamping Machine Operator Relationship Specialty Start Date End Date Osbaldo Dewitt APRN [address] [place] [address] [phone] PCP - General Family Medicine 12/31/22 documented as of this encounter
--- OUTSIDE RECORDS SUMMARY | 2024-09-30 00:22 | XMS_ITS | Encounter Summary ---
Author Organization [facility] Address [facility] [place] [address] Care Team Providers Care Client Delivery Specialist Name Role Phone Osbaldo Dewitt APRN Primary Care Provider [phone] Encounter Details Date Type Department Care Team (Latest Contact Info) Description 01/26/2024 Travel Social History Tobacco Use Types Packs/Day [...] on filedocumented in this encounter Care Teams Client Delivery Specialist Relationship Specialty Start Date End Date Osbaldo Dewitt APRN [address] [place] [address] [phone] PCP - General Family Medicine 12/31/22 documented as of this encounter
--- OUTSIDE RECORDS SUMMARY | 2024-09-30 00:22 | XMS_ITS | Encounter Summary ---
Author Organization Formerly [facility], [facility] Address [facility] [place] [address] Care Team Providers Care Financial Dealers Name Role Phone EsdrasOsbaldo weston Yaron PAGE Primary Care Provider [phone] Reason for Visit * Reason Comments Follow Up Surgery 6-6-23 L TSA WOUN D CHECK Follow-up NXR 6-6-23 L TSA WOUND CHECK Encounter Details Date Type Department Care Team (Latest Contact Info) Description 05/21/2023 8:20 AM EDT [place] [address] Rosalee Powers PA [facility] [place] [address] Postoperative abscess involving suture Social History Tobacco Use Types Packs/Day Years [...] - - Weight 111.1 kg (245 lb) 05/21/2023 8:09 AM EDT Height 175.3 cm (5' 9.02) 05/21/2023 8:09 AM ED T Body Mass Index 36.16 05/21/2023 8:09 AM EDT documented in this encounter Progress Notes * Rosalee Powers PA - 05/21/2023 8:20 AM EDT PATIENT NAME: Sandie Manriquez AGE: 63 y.o. MR#: [id number] DATE OF VISIT: 05/21/2023 DATE OF SURGERY: 03/11/2023 SURGERY DESCRIPTION: TOTAL SHOULDER ARTHROPLASTY (WRVU 22.13) (Left) MODIFIER BEACH CHAIR SCHLEIN (N/A) TENODESIS,BICEPS TENDON (PROXIMAL) (WRVU 10.17) (Left) MODIFIER SIDUS SHOULDER CHANDLER BIOMET (N/A) SURGEON: Dr. Colby CHIEF COMPLAINT: follow up for wound issue HISTORY OF PRESENT ILLNESS: Ms. Manriquez is a 63 y.o. year old female who comes into clinic today for follow up regarding the left shoulder. She states she started to notice some redness around her incision last Friday. She contacted the clinic on Friday and a prescription for Keflex was sent to her pharmacy. She states she then noticed a small amount of purulent drainage from the incision. Shehas been taking her antibiotics as prescribed. She feels that her symptoms are improving. She no longer has any drainage. She has not had any fevers or chills. She otherwise feels that her shoulder is progressing well after her shoulder replacement. PHYSICAL EXAM: Ms. Manriquez is a 63 y.o. female who is in no apparent distress, alert, and cooperative. Inspection: She has some resolving erythema around the central part of her incision. There is no evidence of ongoing drainage. Palpation: There is no palpable abscess. She is not having any pain around the glenohumeral joint ROM/Strength: She is able to perform active shoulder range of motion without any increased discomfort DIAGNOSTIC STUDIES: None obtained SURVEY RESPONSES: 04/25/2023 8:46 AM [facility] Non-surgical Followup Visit PROMIS-10 General Health Good PROMIS-10 Quality of Life Very Good PROMIS-10 Physical Health Good PROMIS-10 Mental Health Very Good PROMIS-10 Social Activity Very Good PROMIS-10 Everyday Activities Mostly PROMIS-10 Pain 4 PROMIS-10 Fatigue Mild PROMIS-10 Social Roles Very Good PROMIS-10 Anxious or Depressed Rarely PROMIS PHYSICAL SCORE (range 16-68) 44.9 PROMIS MENTAL SCORE (range 21-68) 53.3 Satisfaction with Treatment Satisfied Choose Same Treatment Again Definitely yes 04/25/2023 8:48 AM [facility] Response ASES VAS-RIGHT 4 ASES ADL-RIGHT ARM 11 ASES RIGHT ARM 48.33 ASSESSMENT: Suture abscess following left total shoulder replacement, currently doing well on oral antibiotics PLAN: Her wound appears to be healing now and is responding well to the oral antibiotics. She will finish her antibiotics as prescribed. She should keep the area clean. If she develops any additionalredness or drainage she will contact us for guidance. It does not appear that there is any joint infection associated with this since her shoulder is otherwise doing well. She is scheduled to follow-up for routine 3-month follow-up in June. She will keep this appointment as planned. The patient understands to contact us if they have any other questions or concerns. The above documentation was completed using [employer] voice recognition software. documented in this encounter Plan of Treatment Not on file documented as of this encounter Visit Diagnoses Diagnosis Postoperative abscess involving suture documented in this encounter Care Teams Financial Dealers Relationship Specialty Start Date End Date Osbaldo Dewitt APRN [address] [place] [phone] PCP - General Family Medicine 12/31/22 documented as of this encounter
--- OUTSIDE RECORDS SUMMARY | 2024-09-30 00:22 | XMS_ITS | Encounter Summary ---
Author Organization Replaced By [facility] [place] [address] Care Team Providers Care Telegraph Mechanic Name Role Phone Osbaldo Dewitt APRN Primary Care Provider [phone] Reason for Visit * Reason Onset Date Comments Pre Procedure Call 07/22/2023 Encounter Details Date Type Department Care Team (Late st Contact Info) Description 07/22/2023 Tele[place] [address] Veto Odell MD [facility] [address] [place] [address] Pre Procedure Call (/) Social History Tobacco Use Types Packs/Day Years [...] on filedocumented in this encounter Care Teams Telegraph Mechanic Relationship Specialty Start Date End Date Osbaldo Dewitt APRN [address] [place] [phone] PCP - General Family Medicine 12/31/22 documented as of this encounter
--- OUTSIDE RECORDS SUMMARY | 2024-09-30 00:22 | XMS_ITS | Encounter Summary ---
Author Organization [facility] Address [facility] [place] [address] Care Team Providers Care Drill Operator Automatic Name Role Phone Osbaldo Dewitt APRN Primary Care Provider [phone] Encounter Details Date Type Department Care Team (Latest Contact Info) Description 12/26/2023 Travel Social History Tobacco Use Types Packs/Day [...] on filedocumented in this encounter Care Teams Drill Operator Automatic Relationship Specialty Start Date End Date Osbaldo Dewitt APRN [address] [place] [phone] PCP - General Family Medicine 12/31/22 documented as of this encounter
--- OUTSIDE RECORDS SUMMARY | 2024-09-30 00:22 | XMS_ITS | Encounter Summary ---
Author Organization [facility] Address [facility] [place] [address] Care Team Providers Care Central Control Room Operator Name Role Phone Osbaldo Dewitt APRN Primary Care Provider [phone] Reason for Visit * Reason Comments Follow-up 03-11-23 L [facility] Encounter Details Date Type Department Care Team (Late st Contact Info) Description 04/25/2023 2:40 PM EDT [place] [address] Christine Colby MD [facility] [place] [address] Status post replacement of left shoulder joint Social History Tobacco Use Types Packs/Day Years [...] - - Weight 108.4 kg (239 lb) 04/25/2023 2:30 PM EDT Height 175.3 cm (5' 9) 04/25/2023 2:30 PM EDT Body Mass Index 35.29 04/25/2023 2:30 PM EDT documented in this encounter Progress Notes * Christine Colby MD - 04/25/2023 2:40 PM EDT Shoulder Service [place], [place] Date of Evaluation: 04/25/2023 Subjective: Sandie Manriquez is 6 weeks s/p left anatomical total shoulder replacement. She reports no pain at this point and is progressing with the standard physical therapy program. Denies fevers or chills,numbness or tingling. Physical Examination Alert and oriented, in no apparent distress. Incision is healing very well. There is no erythema, edema, warmth, tenderness, or drainage. Neurological exam is intact in the radial, median, ulnar, axillary, and musculocutaneous nerve distributions. Active ROM: 150 degrees forward elevation, 50 degrees external rotation at the side, and internal rotation to L2. No instability is detected. Imaging: The shoulder prosthesis is in appropriate position. There is no evidence of instability. There is no gross component loosening. Assessment: Doing well 6 weeks s/p total shoulder replacement. Plan: Continue to progress through physical therapy protocol, focusing on AROM. Return to clinic in6 weeks. No new films are needed at that visit. All questions were answered today. Christine Colby M.D., M.S. Registered Sales Assistant of Orthopaedic Surgery Shoulder, Elbow, and Sports Medicine Department of Orthopaedic Surgery [place], [place] [phone] This note was created with [employer] voice recognition software. Please excuse any typos. documented in this encounter Plan of Treatment Not on file documented as of this encounter Visit Diagnoses Diagnosis Status post replacement of left shoulder joint documented in this encounter Care Teams Central Control Room Operator Relationship Specialty Start Date End Date Osbaldo Dewitt APRN [address] [place] [phone] PCP - General Family Medicine 12/31/22 documented as of this encounter
--- OUTSIDE RECORDS SUMMARY | 2024-09-30 00:22 | XMS_ITS | Encounter Summary ---
Author Organization [facility] Address [facility] [address] Care Team Providers Care Doll Maker Name Role Phone Osbaldo Dewitt Yaron PAGE Primary Care Provider [phone] Encounter Details Date Type Department Care Team (Late st Contact Info) Description 12/30/2023 Orders [place] [address] Joan Sow PA [facility] [place] [address] Social History Tobacco Use Types Packs/Day Years Used Date Smoking Tobacco: Former Cigarettes Smokeless Tobacco: Never Alcohol Use Standard Drinks/Week Comments Yes 14 (1 standard drink = 0.6 oz pu re alcohol) IPV Inpatient Questions Answer Date Recorded Does [...] on filedocumented in this encounter Care Teams Doll Maker Relationship Specialty Start Date End Date Osbaldo Dewitt APRN [address] [place] [phone] PCP - General Family Medicine 12/31/22 documented as of this encounter
--- OUTSIDE RECORDS SUMMARY | 2024-09-30 00:22 | XMS_ITS | Encounter Summary ---
Author Organization Formerly [facility] Address [facility] [address] Care Team Providers Care Egg Crater Name Role Phone Osbaldo Dewitt Yaron PAGE Primary Care Provider [phone] Encounter Details Date Type Department Care Team (Late st Contact Info) Description 03/10/2024 8:10 AM EDT Telephone [place] [phone] Christine Colby MD [facility] DR [place]OPAED[place] [address] Social History Tobacco Use Types Packs/Day Years [...] encounter Miscellaneous Notes * Telephone Encounter - Christine Colby MD - 03/10/2024 8:02 AM EDT I called Sandie Manriquez to discuss the results of her recent shoulder replacement. She is doingvery well. She has no pain. She is getting her range of motion back. No fevers or chills or signs of infection, no numbness or tingling. She previously underwent contralateral total shoulder replacement last year and understands the time course of recovery. Overall she has no current complaints or concerns. Will plan to see her back in 9 months with new x-rays. She will call us if she has any trouble in the meantime. Christine Colby M.D., M.S. Professor of Orthopaedic Surgery [employer] [facility] Department [place] [address] This note was transcribed with the use of [employer] voice recognition software. documented in this encounter Plan of Treatment Not on file documented as of this encounter Visit Diagnoses Not on filedocumented in this encounter Care Teams Egg Crater Relationship Specialty Start Date End Date Osbaldo Dewitt APRN [address] [place] [phone] PCP - General Family Medicine 12/31/22 documented as of this encounter
--- OUTSIDE RECORDS SUMMARY | 2024-09-30 00:22 | XMS_ITS | Encounter Summary ---
Author Organization formerly [place] [address] Care Team Providers Care Senior National Account Manager Name Role Phone Osbaldo Dewitt APRN Primary Care Provider Encounter Details Date Type Department Care Team (Late st Contact Info) Description 05/16/2023 Orders [place] [address] Rosalee Powers PA [facility] [place] [address] Social History Tobacco Use Types Packs/Day Years [...] filedocumented in this encounter Care Teams Senior National Account Manager Relationship Specialty Start Date End Date Osbaldo Dewitt APRN [address] [place] [phone] PCP - General Family Medicine 12/31/22 documented as of this encounter
--- OUTSIDE RECORDS SUMMARY | 2024-09-30 00:22 | XMS_ITS | Encounter Summary ---
Author Organization [facility] [place] [address] Care Team Providers Care Mission Analyst Name Role Phone Osbaldo Dewitt APRN Primary Care Provider [phone] Encounter Details Date Type Department Care Team (Late st Contact Info) Description 08/08/2023 Orders [place] [address] Christine Colby MD [facility] [place] [address] Chronic pain in right shoulder Social History Tobacco Use Types Packs/Day Years [...] as of this encounter Visit Diagnoses Diagnosis Chronic pain in right shoulder Pain in joint, shoulder region documented in this encounter Care Teams Mission Analyst Relationship Specialty Start Date End Date Osbaldo Dewitt APRN [address] [place] [phone] PCP - General Family Medicine 12/31/22 documented as of this encounter
--- OUTSIDE RECORDS SUMMARY | 2024-09-30 00:22 | XMS_ITS | Encounter Summary ---
Author Organization Formerly [facility] Address [facility] [place] [address] Care Team Providers Care Kaitara Taraka Name Role Phone Osbaldo Dewitt APRN Primary Care Provider [phone] Encounter Details Date Type Department Care Team (Latest Contact Info) Description 06/09/2023 Travel Social History Tobacco Use Types Packs/Day [...] on filedocumented in this encounter Care Teams Kaitara Taraka Relationship Specialty Start Date End Date Osbaldo Dewitt APRN [address] [place] [phone] PCP - General Family Medicine 12/31/22 documented as of this encounter
--- OUTSIDE RECORDS SUMMARY | 2024-09-30 00:22 | XMS_ITS | Encounter Summary ---
Author Organization [facility] Address [facility] [place] [address] Care Team Providers Care Carbon Paper Interleafer Name Role Phone Osbaldo Dewitt APRN Primary Care Provider [phone] Reason for Visit * Reason Comments Post Op DOS:12-09-23 RIGHT TSA Encounter Details Date Type Department Care Team (Late st Contact Info) Description 12/30/2023 1:30 PM EDT Office [place] [address] Joan Sow PA [facility] [place] [address] s/p right anatomic stemless TSA, 12/09/23 (Dr Colby); s/p left anatomic stemless TSA, 03/11/23 (Dr Colby) Social History Tobacco Use Types Packs/Day Years Used Date Smoking Tobacco: Former Cigarettes Smokeless Tobacco: Never Alcohol Use Standard Drinks/Week Comments Yes 14 (1 standard drink = 0.6 oz pu re alcohol) [facility] Inpatient Questions Answer Date Recorded Does Anyone [...] Pulse 67 12/30/2023 1:24 PM EDT Temperature - - Respiratory Rate - - Oxygen Saturation - - Inhaled Oxygen Concentration - - Weight 97.5 kg (215 lb) 12/30/2023 1:24 PM EDT Height 174.6 cm (5' 8.75) 12/30/2023 1:24 PM ED T Body Mass Index 31.98 12/30/2023 1:24 PM EDT documented in this encounter Progress Notes * Joan Sow PA - 12/30/2023 1:30 PM EDT Images from the original note were not included. Patient Name: Sandie Manriquez AGE: 63 y.o. MR#: [id number] Date of Visit: 12/30/2023 Procedure: right anatomic total shoulder arthroplasty, 12/09/23, Dr. Colby Chief Complaint: ~ 2.5 weeks S/P above procedure History of Present Illness: Ms. Manriquez is a 63 y.o. female who presents s/p the above procedures for office follow up. Overall she is doing very well no concerns the incision. She does report that the proximal Monocryl is itching. She also notes that she unfortunately went into a bout of A-fib postoperatively and was seen in her local emergency department, medications were adjusted. 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 Denies fevers, chills, shortness of breath, chest pain,calf pain. Physical Exam: BP 126/75 Pulse 67 Ht 174.6 cm (5' 8.75) Wt 97.5 kg (215 lb) BMI 31.98 kg/m?? General appearance: in no acute distress, alert, cooperative Psych: cooperative with exam, appropriate Head: normocephalic, atraumatic EENT: EOMI grossly intact Lungs: non-labored respirations Musculoskeletal: Inspection: incision site is healing well without erythema or drainage. I am unable to part the skin with gentle palpation. Monocryl in place Palpation: appropriate post op tenderness ROM/Strength: shoulder ROM deferred. Elbow ROM 0-120, full wrist and hand ROM. Able to activate deltoid, finger spread 5/5. Orthopedic testing: Deferred Neurovascular: sensation grossly intact to light touch of the upper extremity including axillary distribution, 2+ radial pulse Diagnostic Studies: No new images today Survey Responses: 12/26/2023 [facility] Surgical Followup Visit PROMIS-10 General Health Good PROMIS-10 Quality of Life Very Good PROMIS-10 Physical Health Good PROMIS-10 Mental Health Very Good PROMIS-10 Social Activity Good PROMIS-10 Everyday Activities Mostly PROMIS-10 Pain 1 PROMIS-10 Fatigue Mild PROMIS-10 Social Roles Good PROMIS-10 Anxious or Depressed Rarely PROMIS PHYSICAL HEALTH SCORE (range 16-68) 47.7 PROMIS MENTAL HEALTH SCORE (range 21-68) 50.8 Gone to ER since surgery Yes Where was ER located? [place], [place] Date of ER visit 12/13/2023 Reason for ER visit A-Fib Admitted to hospital since recent ortho surgery No Additional surgery on same body part No Satisfaction with Treatment Satisfied Choose Same Treatment Again Definitely yes 12/26/2023 [facility] Response ASES VAS-RIGHT 1 ASES ADL-RIGHT ARM 3 ASES RIGHT ARM 50 No data to display Assessment/Plan: Sandie is a 63 y.o. female who presents s/p right anatomic total shoulder arthroplasty doing well. Sandie can get her incision wet in the shower. she will continue with sling immobilization until she is 6 weeks postop. She can come out of her sling for showering and for physical therapy. she will follow the shoulder replacement therapy protocol. For now she will be working on gentle passive range of motion, but once she is closer to 6 weeks postop she will start to add moreactive assisted and active shoulder range of motion. Sandie still needs to avoid full weightbearing activity with her right arm for now. She should continue with Tylenol for pain control. We discussed the appropriate precautions surrounding dental [...] answered. Knows sonal with questions or concerns Follow Up: ~4 weeks with x-rays, will see her for both shoulder at that time. DMITRY Rivera 12/30/2023 1:45 PM The above documentation was completed using [employer] voice recognition software. documented in this encounter Plan of Treatment Not on file documented as of this encounter Results * XR Shoulder Bilat (Generic) (01/27/2024 7:47 AM EDT) [employer] WORKSTATION ID [id number] RAD Anatomical Region Laterality Modality Shoulder Bilateral Digital [...] who have questions please contact the health daycare director that requested your imaging first. ? Narrative 01/27/2024 1:24 PM EDT EXAMINATION: XR [...] spine degeneration is partially included in the [id number]. Visualized lung mensah are clear. Procedure Note [...] Cervicothoracic spine degeneration is partially included in [id number]. Visualized lung mensah are clear. IMPRESSION Bilateral [...] patients who have questions please contactthe health daycare director that requested your imaging first. Christine Colby MD IMG DX ORDERABLES documented in this encounter Visit Diagnoses Diagnosis s/p right anatomic stemless TSA, 12/09/23 (Dr Colby) s/p left anatomic stemless TSA, 03/11/23 (Dr Colby) s/p right anatomic stemless TSA, 12/09/23 (Dr Colby) s/p left anatomic stemless TSA, 03/11/23 (Dr Colby) documented in this encounter Care Teams Carbon Paper Interleafer Relationship Specialty Start Date End Date Osbaldo Dewitt APRN [address] [place] [phone] PCP - General Family Medicine 12/31/22 documented as of this encounter
--- OUTSIDE RECORDS SUMMARY | 2024-09-30 00:22 | XMS_ITS | Encounter Summary ---
[place] [address] Care Team Providers Care Global Supply Chain Vice President Name Role Phone Osbaldo Dewitt APRN Primary Care Provider [phone] Encounter Details Date Type Department Care Team (Late st Contact Info) Description 12/09/2023 Telephone [place] [address] Eric Damon MD Social History Tobacco Use Types Packs/Day [...] on filedocumented in this encounter Care Teams Global Supply Chain Vice President Relationship Specialty Start Date End Date Osbaldo Dewitt APRN [address] [place] [phone] PCP - General Family Medicine 12/31/22 documented as of this encounter
--- OUTSIDE RECORDS SUMMARY | 2024-09-30 00:22 | XMS_ITS | Encounter Summary ---
Author Organization [facility] [place] [address] Care Team Providers Care Mobile Heavy Equipment Operator Name Role Phone Osbaldo Dewitt APRN Primary Care Provider [phone] Encounter Details Date Type Department Care Team (Late st Contact Info) Description 09/03/2023 5:10 PM EST Ancillary Procedure Radiology [facility] [place] [address] Osbaldo Dewitt APRN [address] [place] [phone] Social History Tobacco Use Types Packs/Day [...] Procedure Name Priority Date/Time Associated Diagnosis Comments FILM LIBRARY STORAGE ONLY CT UPPER EXTREMITY Routine 09/03/2023 5:06 PM EST documented in this encounter Results * Film Library- Storage Only CT Upper Extremity (09/03/2023 5:06 PM EST) Narrative [facility] - 09/03/2023 5:06 PM EST This exam is auto-finalizing. It's purpose is for storage only. Osbaldo Dewitt APRN [facility] FILM LIBRARY ORD ERABLES [place], [place] documented in this encounter Visit Diagnoses Not on filedocumented in this encounter Care Teams Mobile Heavy Equipment Operator Relationship Specialty Start Date End Date Osbaldo Dewitt APRN [address] [place] [phone] PCP - General Family Medicine 12/31/22 documented as of this encounter
--- OUTSIDE RECORDS SUMMARY | 2024-09-30 00:22 | XMS_ITS | Encounter Summary ---
Author Organization [facility] Address [facility] [place] [address] Care Team Providers Care Motorized Squad Captain Name Role Phone Osbaldo Dewitt APRN Primary Care Provider [phone] Encounter Details Date Type Department Care Team (Latest Contact Info) Description 11/13/2023 Travel Social History Tobacco Use Types Packs/Day [...] on filedocumented in this encounter Care Teams Motorized Squad Captain Relationship Specialty Start Date End Date Osbaldo Dewitt APRN [address] [place] [phone] PCP - General Family Medicine 12/31/22 documented as of this encounter
--- OUTSIDE RECORDS SUMMARY | 2024-09-30 00:22 | XMS_ITS | Encounter Summary ---
Author Organization [facility] [place] [address] Care Team Providers Care Diesel Engine Assembler Name Role Phone Osbaldo Dewitt APRN Primary Care Provider [phone] Encounter Details Date Type Department Care Team (Late st Contact Info) Description 07/14/2023 External Results [place] [address] Aditya Boss MD [facility] [place] [address] Social History Tobacco Use Types Packs/Day Years [...] Procedure Name Priority Date/Time Associated Diagnosis Comments EMG WITH F-WAVE Routine 07/14/2023 11:34 AM EDT documented in this encounter Results * EMG WITH F-WAVE (07/14/2023 11:34 AM EDT) Aditya Boss MD NEUROLOGY ORDERABLES documented in this encounter Visit Diagnoses Not on filedocumented in this encounter Care Teams Diesel Engine Assembler Relationship Specialty Start Date End Date Osbaldo Dewitt APRN [address] [place] [phone] PCP - General Family Medicine 12/31/22 documented as of this encounter
--- OUTSIDE RECORDS SUMMARY | 2024-09-30 00:22 | XMS_ITS | Encounter Summary ---
Author Organization [facility] Address [facility] [place] [address] Care Team Providers Care Edge Blacker Name Role Phone Osbaldo Dewitt APRN Primary Care Provider [phone] Encounter Details Date Type Department Care Team (Latest Contact Info) Description 03/25/2023 Travel Social History Tobacco Use Types Packs/Day [...] on filedocumented in this encounter Care Teams Edge Blacker Relationship Specialty Start Date End Date Osbaldo Dewitt APRN [address] [place] [phone] PCP - General Family Medicine 12/31/22 documented as of this encounter
--- OUTSIDE RECORDS SUMMARY | 2024-09-30 00:22 | XMS_ITS | Encounter Summary ---
Author Organization [facility] Address [facility] [place] [address] Care Team Providers Care Pharmacy Graduate Intern Name Role Phone Osbaldo Dewitt APRN Primary Care Provider [phone] Encounter Details Date Type Department Care Team (Latest Contact Info) Description 05/21/2023 Travel Social History Tobacco Use Types Packs/Day [...] on filedocumented in this encounter Care Teams Pharmacy Graduate Intern Relationship Specialty Start Date End Date Osbaldo Dewitt APRN [address] [place] [phone] PCP - General Family Medicine 12/31/22 documented as of this encounter
--- OUTSIDE RECORDS SUMMARY | 2024-09-30 00:22 | XMS_ITS | Encounter Summary ---
Author Organization [facility] [place] [address] Care Team Providers Care Hot Header Operator Name Role Phone Osbaldo Dewitt APRN Primary Care Provider Encounter Details Date Type Department Care Team (Late st Contact Info) Description 07/22/2023 Orders [place] [address] [facility] [place] [address] Social History Tobacco Use Types Packs/Day Years [...] on filedocumented in this encounter Care Teams Hot Header Operator Relationship Specialty Start Date End Date Osbaldo Dewitt APRN [address] [place] [phone] PCP - General Family Medicine 12/31/22 documented as of this encounter
--- OUTSIDE RECORDS SUMMARY | 2024-09-30 00:22 | XMS_ITS | Encounter Summary ---
Author Organization [facility] [place] [address] Care Team Providers Care Technology Applications Consultant Name Role Phone Osbaldo Dewitt APRN Primary Care Provider [phone] Reason for Visit * Consultation (Routine) - Closed Specialty Diagnoses / Procedures Referred By Chance le Referred To Contact Rheumatology Diagnoses Glenohumeral arthritis, left Synovitis Rosalee Powers PA [facility] [place] [address] [facility] Rheumatology [address] [place] [phone] Referral ID Status Reason Start Date Expiration Date V isits Requested Visits Authorized [id number] Closed Consult, Test & Treat 03/25/2023 03/24/2024 1 1 Encounter Details Date Type Department Care Team (Latest Contact Info) Description 05/06/2023 11:00 AM EDT Office [place] [address] Remi Schmitt MD [facility] [place] [address] s/p left anatomic stemless TSA, 03/11/23 (Dr Colby); Abnormality present on gross pathology; Primary osteoarthritis of both hands; Primary osteoarthritis of both knees; Chronic pain of both shoulders; Bilateral hip pain; Chronic pain of both knees; Pain in both feet; Bunion; Bunion of great toe Social History Tobacco Use Types Packs/Day Years [...] Sign Reading Time Taken Comments Blood Pressure 131/72 05/06/2023 10:48 AM EDT Pulse 61 05/06/2023 10:48 AM EDT Temperature 36.8 ??C (98.2 ??F) 05/06/2023 1 0:48 AM EDT Respiratory Rate 10 05/06/2023 10:4 8 AM EDT Oxygen Saturation 100% 05/06/2023 10: 48 AM EDT Inhaled Oxygen Concentration - - Weight 111.4 kg (245 lb 9.6 oz) 023 10:48 AM EDT Height - - Body Mass Index 36.27 04/25/2023 2:30 PM EDT documented in this encounter Progress Notes * Remi Schmitt MD - 05/06/2023 11:00 AM EDT Rheumatology Consult Note Reason for Consult: Sandie Manriquez presents today at the request of Osbaldo Dewitt APRN for evaluation of abnormal shoulder biopsy I have reviewed the provided records, pertinent records available at the time of the [facility] appointment with in the medical record and any forms completed by the patient. These have been scanned into the medical record for future review. HPI: Sandie Manriquez is a 62 y.o. female who presents today for evaluation of Bilateral shoulder pain with previous diagnosis of OA. Left > Rt SP left shoulder replacement status post right CSI. Shoulder pain chronic for 3 years. No swelling, redness or wamrh. Knees bilareral with rt chondromlacia with meniscal pain. No swelling, redness or warmth. The orthopedics sees for the knees. She has injections in the knees. They hae not taken fluid out of the knee . Her knee bother her daily. Going down stairs worse. Worse with activity. But overall she feels better when she is active. She has pain and stiffness which wakes up in the morning but usually dissipates by 20 steps . He has a gelling phenomenon when she sits for extended period time Chronic hip flexor pain on the right does not radiate to the trochanteric region does not radiate to the groin Neck pain has resolved No hand issuess Very large bunion previously seen by podiatry. At some point they did discuss surgery nonproblematic other than has wearing shoes She does get some muscle cramps and Sometimes the top of her foot is painful foot pain without redness and warmth. 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 Comments are only made for responses that are changed from previous, not discussed in HPI, or otherwise require clarification. Systemic Comments Generalized pain Fatigue/tiredness Fevers Chills Night sweats Recent weight loss Recent Weight gain Head and neck Headaches Neck pain/stiffness Lymphadenopathy Ocular erythema Xerophthalmia Gritty eyes Eye pain Photophobia Oral sores Xerostomia Jaw claudication Cardiopulmonary Chest discomfort Dyspnea Cough Hemoptysis Gastrointestinal Dysphagia Heartburn Nausea Emesis Abdominal pain Hematochezia Diarrhea Constipation Genitourinary Hematuria Dysuria Musculoskeletal Muscle weakness Myalgia Shoulder pain Raynaud's Neuropsychiatric Paresthesia Dysesthesia Dizziness/vertigo Anxiety Depression Cognitive problems Initial insomnia Night awakenings Nonrestorative sleep Dermatologic Xerosis cutis Photosensitivity Rash Patient's medications, allergies, past medical, surgical, social and family histories were reviewedand updated as appropriate within [facility]. Physical Exam: BP 131/72 (BP Location (NBP): Left arm, Patient Position: Sitting, BP Cuff Sizes: Large Adult (32-43 cm)) Pulse 61 Temp 36.8 ??C (98.2 ??F) (Temporal) Resp 10 Wt 111.4 kg (245 lb 9.6 oz) SpO2 100% BMI 36.27 kg/m?? General: NAD, high BMI HEENT: Mucous membranes are moist, no oral mucosal ulcerations, temporal artery non-palpable Neck: Supple, no lymphadenopathy, full range of motion. Cardiovascular: RR, (-)murmurs, rubs, or gallops. Lungs: Clear to auscultation bilaterally. (-)R/R/W Abdomen: Soft, non tender, non distended, + bowel sounds, no hepatosplenomegaly. Neuro: Alert and oriented x3. Cranial nerves II through XII grossly intact. - Strength 5/5 throughout, y. Skin: (-)ulcers, (-)rash Vascular: Pulses are equal in all extremities. MSK Back: Non tender over the spine and costovertebral angles bilaterally. (-)Flor Extremities Shoulders: FROM, non-tender to palpation Elbows:FROM, (-)pain, (-)nodules Wrists: FROM, no swelling, non-tender Hands: No synovitis, no MCP compression tenderness, Heberden's and Tashia's nodes noted Hips: FROM, (-) fader (-flor) Knees: (-)effusions, non-tender ROM, Ankles: FROM, non-tender, no swelling Feet: no MTP compression tenderness, bunion on the left foot noted, pes planus noted Spine, shoulders, elbows, wrists, fingers, hips, knees and ankles; no active swelling, tenderness or synovitis at any joint. No soft tissue nodules. Labs: Studies: INDICATION: M54.2 NECK PAIN, NECK PAIN W/RADICULOPATHY SCREENING, 2019, NECK PAIN,Z00.00 TECHNIQUE: 5 views cervical spine COMPARISON: 05/13/2017 FINDINGS: No acute fracture is detected. There is no abnormal prevertebral soft tissue swelling. Advanced multilevel facet arthrosis is present. There is moderate disc space narrowing at C5-C6 and mild disc space narrowing at C4-C5 and C6-C7. In the neutral position, there is approximately 2 mm retrolisthesis at C3-C4, trace anterolisthesis at C4-C5 and C5-C6 and 4 mm anterolisthesis at C6-C7. With flexion/extension, there is mild translational change at all levels with spondylolisthesis.. IMPRESSION: Advanced facet arthrosis with multilevel spondylolisthesis and mild translational change with flexion/extension. Assessment, Plan or Recommendation : : Sandie Manriquez is a 62 y.o. 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 Negative in regards to rheumatoid and CCP. She also lacks small joint involvement and medium joint which per report classification criteria has higher sensitivity and specificity to rheumatoid arthritis. Her ESR is less than 3 times the upper limit of normal with a normal CRP. It was also done within 2 weeks of her initial surgery per the patient so could be falsely elevated. Could also be falsely elevated. Secondary to BMI.. In addition to this her overall description is favors osteoarthritis lacking the stiffness synovitis that is more consistent with rheumatoid arthritis. At this point in time it is unlikely that thepatient has active rheumatoid arthritis. As describes the patient is. As explained to the patient she can develop rheumatoid arthritis at any time so monitoring is appropriate.. And plan recommended given the patient a schedule follow-up with patient has chosen to follow-up asneeded. We also discussed repeating the ESR to see if it has normalized patient has opted not to Also recommended Patient has an effusion of the knee joint that should be sent for crystals culture Gram stain and cell count documented in this encounter Plan of Treatment Not on file documented as of this encounter Visit Diagnoses Diagnosis s/p left anatomic stemless TSA, 03/11/23 (Dr Colby) Abnormality present on gross pathology Primary osteoarthritis of both hands Primary osteoarthritis of both knees Primary localized osteoarthrosis, lower leg Chronic pain of both shoulders Pain in joint, shoulder region Bilateral hip pain Pain in joint, pelvic region and thigh Chronic pain of both knees Pain in both feet Pain in limb Bunion Bunion of great toe Bunion documented in this encounter Care Teams Technology Applications Consultant Relationship Specialty Start Date End Date Osbaldo Dewitt APRN [address] [place] [phone] PCP - General Family Medicine 12/31/22 documented as of this encounter
--- OUTSIDE RECORDS SUMMARY | 2024-09-30 00:22 | XMS_ITS | Encounter Summary ---
[place] [address] Care Team Providers Care Benefits Officer Name Role Phone Esdras, Osbaldojerrica Piña APRN Primary Care Provider [phone] Encounter Details Date Type Department Care Team (Late st Contact Info) Description 12/26/2023 Telephone [place] [address] Eric Damon MD Social History [...] as of this encounter Progress Notes * Eric Damon MD - 12/26/2023 11:19 AM EDT Regional Anesthesia Post-Procedure Assessment Spoke to patient via telephone. Peripheral nerve block resolved appropriately. No residual weakness/numbness/decreased sensation. No sign of infection at injection site. Tolerating POs appropriately.Patient very satisfied with nerve block. documented in this encounter Plan of Treatment Not on file documented as of this encounter Visit Diagnoses Not on filedocumented in this encounter Care Teams Benefits Officer Relationship Specialty Start Date End Date Osbaldo Dewitt APRN [address] [place] [phone] PCP - General Family Medicine 12/31/22 documented as of this encounter
--- OUTSIDE RECORDS SUMMARY | 2024-09-30 00:22 | XMS_ITS | Encounter Summary ---
Author Organization [facility] Address [facility] [place] [address] Care Team Providers Care Master Sonar Technician Name Role Phone Osbaldo Dewitt CAMILO Primary Care Provider [phone] Reason for Visit * Reason Onset Date Comments Questions 10/30/2023 Encounter Details Date Type Department Care Team (Late st Contact Info) Description 10/30/2023 Telephone [place] [phone] Christine Colby MD [facility] [place] [address] Questions Social History Tobacco Use Types Packs/Day Years Used Date Smoking Tobacco: Former Cigarettes Smokeless Tobacco: Never Alcohol Use Standard Drinks/Week Comments Yes 14 (1 standard drink = 0.6 oz pu re alcohol) [facility] Inpatient Questions Answer Date Recorded [...] encounter Miscellaneous Notes * Telephone Encounter - Nikhil Spain - 10/30/2023 1:15 PM EST LM#1 Called and left message for Sandie Manriquez. Per last office note, no ABX needed after 6 months have elapsed form surgery. Provided callback number if there were further questions/concerns. Last office note by Damaris Salas APRN 06/10/2023: We discussed the appropriate precautions surrounding dental prophylaxis: we do not recommend antibiotics with dental work after 6 months. Should maintain good foot care and giving prompt attention to any source of infection throughout the body including foot ulcers and urinary tract infections. * Telephone Encounter - Janes Casillas - 10/30/2023 1:05 PM ESTSummary: Questions Name of person calling : [facility] Facility person calling from: N/A Who is the provider: Earnestine Have you had surgery: Yes If yes : DOS:03/11/2023 Surgeon: Earnestine Is there a new injury: No If yes, how did the new injury occur?: Best contact number: [phone] What is the question: Patient is calling in regards to dental prophylaxis patient has a filling scheduled and wants to know if they will need antibiotics? Patient also would like to let us know they are now taking a prescribed blood thinner eliquis. documented in this encounter Plan of Treatment Not on file documented as of this encounter Visit Diagnoses Not on filedocumented in this encounter Care Teams Master Sonar Technician Relationship Specialty Start Date End Date Osbaldo Dewitt APRN [address] [place] [phone] PCP - General Family Medicine 12/31/22 documented as of this encounter
--- OUTSIDE RECORDS SUMMARY | 2024-09-30 00:22 | XMS_ITS | Encounter Summary ---
Author Organization [facility] Address [facility] [address] Care Team Providers Care Chiropractic Doctor Name Role Phone EsdrasOsbaldo weston Yaron PAGE Primary Care Provider [phone] Reason for Visit * Reason Onset Date Comments Appointment 12/26/2023 Post Procedure Call 12/26/2023 Encounter Details Date Type Department Care Team (Late st Contact Info) Description 12/26/2023 Telephone [place] [phone] Christine Colby MD [facility] [place] [address] Appointment; Post Procedure Call Social History Tobacco Use Types Packs/Day Years Used Date Smoking Tobacco: Former Cigarettes Smokeless Tobacco: Never Alcohol Use Standard Drinks/Week Comments Yes 14 (1 standard drink = 0.6 oz pu re alcohol) [facility] Inpatient Questions Answer Date Recorded Does Anyone [...] encounter Miscellaneous Notes * Telephone Encounter - Suze Ha MA - 12/26/2023 10:46 AM EDT [facility] message forwarded to Joan for appt type recommendation and incision review. * Telephone Encounter - Jean Carlos Ibarra - 12/26/2023 10:12 AM EDT Who is calling? Cheryl Best call back number: [phone] Best time to call back between 8:00 am & 5:00 pm: Anytime Can we leave a message? yes When was your procedure? 12/09/23 Who was your surgeon? Dr. Colby What procedure did you have done? 12/09/2023 0730 TOTAL SHOULDER ARTHROPLASTY (WRVU 22.13) - Right MODIFIER SIDUS SHOULDER CHANDLER BIOMET TENODESIS,BICEPS TENDON (PROXIMAL) (WRVU 10.17) - Right Christine Colby (Primary) Bird Corona Nicole T [facility] Discharged What is the question you would like to ask the clinical care team? Cheryl called to cancel her HCK scheduled with Joan for today. She stated that her ride called out sick and is unable to bring her. Cheryl was wondering if there was any way that her HCK could be done virtually (she's ready to be able to shower)? Pat was rescheduled to 12/30/23 just in case she cannot do a virtual HCK. Pat is also going to send a [facility] message with an attached picture of her incision area to review. She stated that she is having no issues, she feels great, the incision looks good, and she has no concerns at this time. Please review and advise. Your message will be forwarded to the clinical care team for review. documented in this encounter Plan of Treatment Not on file documented as of this encounter Visit Diagnoses Not on filedocumented in this encounter Care Teams Chiropractic Doctor Relationship Specialty Start Date End Date Osbaldo Dewitt APRN [address] [place] [phone] PCP - General Family Medicine 12/31/22 documented as of this encounter
--- OUTSIDE RECORDS SUMMARY | 2024-09-30 00:22 | XMS_ITS | Encounter Summary ---
Author Organization [facility] Address [facility] [place] [address] Care Team Providers Care Deputy District Customs Director Name Role Phone Osbaldo Dewitt APRN Primary Care Provider [phone] Reason for Referral * Physical Therapy (Routine) - Closed Specialty Diagnoses / Procedures Referred By Chance le Referred To Contact Physical Therapy Diagnoses Primary osteoarthritis of both shoulders Christine Colby MD [facility] [place] [address] Physical Therapy, Espinoza Newman [address] [place] [id number] Referral ID Status Reason Start Date Expiration Date V isits Requested Visits Authorized [id number] Closed Evaluate and Treat 11/13/2023 05/11/2024 12 12 Reason for Visit * Reason Comments Pre-op Exam 12-09-23 RIGHT TSA Encounter Details Date Type Department Care Team (Latest Contact Info) Description 11/13/2023 11:20 AM EST Office [place] [phone] Christine Colby MD [facility] [place] [address] Primary osteoarthritis of both shoulders; Primary osteoarthritis of right shoulder Social History Tobacco Use Types [...] - Inhaled Oxygen Concentration - - Weight 99.8 kg (220 lb) 11/13/2023 11:07 AM EST Height 174 cm (5' 8.5) 11/13/2023 11:07 AM EST Body Mass Index 32.96 11/13/2023 11:07 AM EST documented in this encounter Progress Notes * Christine Colby MD - 11/13/2023 11:20 AM EST Shoulder Service [place], [place] Date of Evaluation: 11/13/2023 Subjective: Sandie Manriquez is interested in proceeding with total shoulder replacement. She is here today to discuss this further. She previously underwent TSA on the contralateral shoulder last year and is very happy with her results. She has no pain and essentially full AROM on that side. Imaging: Radiographs were reviewed. They show severe OA with maintained AHI and severely narrowed glenohumeral joint space.. Assessment: We discussed both operative and nonoperative options. She decided to proceed with anatomic total shoulder replacement. Depending on intraoperative findings, this could consist of stemlessTSA if bone quality is adequate. It could also consist of reverse TSA or hemiarthroplasty dependingon rotator cuff quality, glenoid bone stock, and other factors. Biceps tenodesis/tenotomy may also be a part of the procedure if necessary. We had a thorough discussion of the risks of surgery, as listed on the informed consent. These include infection, bleeding, infection, nerve damage, instability resulting in dislocation of the implant, fracture of the bones around the implant on either the humerus or scapula, persisting pain in the shoulder, deltoid tendonitis, loosening of the implant, possible need for further surgery or revision, and medical risks and risks of anesthesia, such as heartattack, stroke, blood clots, and . I solicited and answered any questions the patient had about the procedure, risks, the rehab course, or the prognosis. Christine Colby M.D., M.S. Professor of Orthopaedic Surgery On License Of [facility] [employer] [facility] Department [place] [address] This note was created with Directa Plus voice recognition software. Please excuse any typos. * Clint Saxena - 11/13/2023 11:20 AM EST Images from the original note were not included. Upper Extremity Pre-Operative Patient Education Procedure: Right Upper procedures: Total Shoulder Arthroplasty Post-op Imaging order placed: No H&P: To be completed PCP Consent: The surgical consent was reviewed with Sandie by Dr. Dr. Colby. Procedure, risks, and benefits were reviewed. Questions were solicited and answered. The Sandie understands these and the surgical consent was signed. Problems with pain medication in the past?: no If yes, drug and reaction: No problems with pain medications listed. DME/Physical Therapy: Sandie was given a DME order for sling. This can be obtained from any DME provider or medical equipment company. She was given a referral for physical therapy and a post operative protocol for their procedure today.. Sandie understands the expectations around post operative rehabilitation and that this is an important component of their recovery. Sandie was instructed that this should be scheduled for 2-5days from the date of surgery. Discussed making sure they take care of director of early childhood education, sleeping situations, and having help with ADL'sbefore day of surgery. Dicussed time frame for sling or post-op splint. Sandie was given a bottle of Hibiclens to be used in the shower the night before and the morning of their procedure. Showering instructions were reviewed. Medications and Pain Management: Reviewed with Sandie to discontinue use of NSAIDS and Aspirin 7 days before surgery. Chronic anti-coagulation: yes, per PCP or Purchasing Intern Anticoagulation plan post op: POSTOPANTICOAG: TBD by PCP/Purchasing Intern 11/13/2023 03/06/2023 02/07/2023 Opioid PDMP [place] PDMP Query Date 11/13/2023 03/06/2023 02/07/2023 [place] PDMP Query Date 11/13/2023 03/06/2023 02/07/2023 [place] PDMP Query Date 11/13/2023 03/06/2023 02/07/2023 Sandie Manriquez is being prescribed a prescription opioid for the treatment of acute post-operative pain related to Orthopedic surgery. Sandie Manriquez has been advised to take the smallest dose possible to control their pain and as their pain improves to take smaller doses and increase the time between doses. In addition to this medication, non-opioid medications have been prescribed for adjunct treatment of their pain. Non-pharmacological treatment such as ice, elevation and activity modification have been recommended as appropriate. The Acute Opioid Therapy Informed Consent form has been completed and sent to medical records for scanning to chart. Written material given Patient education - shoulder: Total Shoulder Replacement Guidebook?? Questions solicited and answered. Sandie knows to call with any additional questions or concerns. Patient advised to read discharge instructions for specific recommendations about medication use, dressing care, sling use ect. after surgery. Will the patient require VNA services post-op: No Sandie will call to schedule this procedure if he has not heard from them in 72 hours, she was given the surgical schedulers direct number Mae Knight.[email or web address], VTLAT, ATC Display Screen Fabricator, Orthopedics and Sports Medicine Tel Fax [facility] documented in this encounter Plan of Treatment Scheduled Referrals Name Type Priority Associated Diagnoses Orde r Schedule Referral to Physical Therapy Outpatient Referral Routine Primary osteoarthritis of both shoulders Ordered: 11/13/2023 documented as of this encounter Visit Diagnoses Diagnosis Primary osteoarthritis of both shoulders Primary osteoarthritis of right shoulder Primary localized osteoarthrosis, shoulder region documented in this encounter Care Teams Deputy District Customs Director Relationship Specialty Start Date End Date Osbaldo Dewitt APRN [address] [place] [phone] PCP - General Family Medicine 12/31/22 documented as of this encounter
--- OUTSIDE RECORDS SUMMARY | 2024-09-30 00:22 | XMS_ITS | Encounter Summary ---
Author Organization [facility] Address [facility] [place] [address] Care Team Providers Care Csm Consultant Name Role Phone Osbaldo Dewitt APRN Primary Care Provider [phone] Encounter Details Date Type Department Care Team (Latest Contact Info) Description 11/06/2023 Travel Social History Tobacco Use Types Packs/Day [...] on filedocumented in this encounter Care Teams Csm Consultant Relationship Specialty Start Date End Date Osbaldo Dewitt APRN [address] [place] [phone] PCP - General Family Medicine 12/31/22 documented as of this encounter
--- OUTSIDE RECORDS SUMMARY | 2024-09-30 00:22 | XMS_ITS | Encounter Summary ---
Author Organization [facility] Address [facility] [place] [address] Care Team Providers Care General Road Supervisor Name Role Phone Osbaldo Dewitt APRN Primary Care Provider [phone] Encounter Details Date Type Department Care Team (Latest Contact Info) Description 04/25/2023 Travel Social History Tobacco Use Types Packs/Day [...] on filedocumented in this encounter Care Teams General Road Supervisor Relationship Specialty Start Date End Date Osbaldo Dewitt APRN [address] [place] [phone] PCP - General Family Medicine 12/31/22 documented as of this encounter
--- OUTSIDE RECORDS SUMMARY | 2024-09-30 00:22 | XMS_ITS | Encounter Summary ---
Author Organization [facility] [place] [address] Care Team Providers Care Kelp Cutter Name Role Phone Osbaldo Dewitt Yaron PAGE Primary Care Provider [phone] Reason for Visit * Auth/Cert (Routine) Specialty Diagnoses / Procedures Referred By Chance t Referred To Contact Diagnoses shoulder arthritis Procedures PRO ARTHROPLASTY GLENOHUMERAL JOINT TOTAL SHOULDER PRO REPAIR BICEPS LONG TENDON TOTAL SHOULDER ARTHROPLASTY (WRVU 22.13) MODIFIER BEACH CHAIR SCHLEIN TENODESIS,BICEPS TENDON (PROXIMAL) (WRVU 10.17) Christine Colby MD [facility] [place] [address] [facility] Referral ID Status Reason Start Date Expiration Date Visits Re quested Visits Authorized [id number] 1 1 Encounter Details Date Type Department Care Team (Late st Contact Info) Description 12/09/2023 7:25 AM EST Anesthesia Event [place] [address] Yuan Oneal MD [facility] [place] [address] Kevin Lynn MD [facility] [place] [address] Anesthesia Record Procedure Summary Procedure Name Responsible Anesthesiologist Anesthesia Start Time Anesthesia Stop Time TOTAL SHOULDER ARTHROPLASTY (WRVU 22.13) (Right: Shoulder) Yuan Oneal MD 12/09/23 0725 12/09/23 0935 Events Date Time Event Comment 12/09/2023 0702 0725 AN Verify 0725 Start 0725 An Start Data 0730 An Induction 0733 An Intubation 0734 Anesthesia Ready 0740 Quick Note Pulse ox being moved from L hand to L earlobe and RA/RL EKG leads being repositioned 0755 Procedure Start 0755 Skin Incision 0818 Break/Relief In I assumed ca re for Break Relief before which we: 1. Identified the patient 2. Identified the responsible provider(s) 3. Reviewed the pertinent medical history 4. Discussed the surgical plan and course 5. Reviewed intra-op anesthesia management and issues during anesthesia 6. Set expectations for the relief (and/or post-procedure) period 7. Allowed opportunity for questions and acknowledgement of understanding Jacqueline Arevalo CRNA 0833 Break/Relief Out 0926 Extubation/LMA Out 0931 an stop data 0933 Recovery or ICU Handoff Pam ent care was transferred to the destination unit staff after review of the patient's medical history, current anesthetic/surgical status and plan, according to the Provider Handoff Checklist. Pt taken to SDP via stretcher on 6L O2 via facemask. VSS, SV, airway patent, resting comfortably. Bedside report given to SDP RN of record, all questions answered, SDP RN accepts patient as is. Selene Hammer CRNA 0935 Stop Meds Name Total IV Lidocaine 100 mg Propofol 230 mg Rocuronium 80 mg ePHEDrine 45 mg Ondansetron 4 mg Dexamethasone 4 mg propofol INF 397.71 mg PHENYLephrine INF 5,750 mcg tranexamic acid (TXA) 1,000 mg BUpivacaine 0.5% 20 mL ceFAZolin 2 g dexmedeTOMIDine 8 mcg sugammadex 210 mg lactated ringers 600 mL lactated ringers infusion 600 mL * Agents Name O2 * Blood No blood administrations on file. Lines, Drains, and Airways Type Details Placement Removal Incision 12/09/23; 0755; Righ t; shoulder 12/09/23 075 by Mey Prince, RN PIV [id number] cath eter system; 18 gauge; metacarpal vein (top of hand), left; Anatomical Landmarks; US Not Used; Jm; 12/09/23; 1224 12/09/23 0739 by 12/09/23 1224 by Remington Benitez RN Incision 03/11/23; Left, ante rior; shoulder; LDA not present upon assessment; 12/09/23; 0806 03/11/23 0000 by Myra Dobson RN 12/09/23 0806 by Mey Prince RN PIV 12/09/23; 0623; 20 g auge; cephalic vein (lateral side of arm), left; Anatomical Landmarks; Karolina GIFFORD; intradermal injection, appears comfortable, tolerated well, distraction; 12/09/23; 122312/09/23 0623 by Karolina Abdul RN 12/09/23 1224 by Remington Benitez RN ETT Mask Ventilation: Pankaj christianson (1); ETT Type: Cuffed; ETT Size: 7.5 mm; Morton Blade: 2; Notes: Asleep, Pre-O2, Stylette; Attempts: 1; Laryngoscopy Grade: 1; ETT Placement Verified By: Auscultation, Capnometry; Secured at Teeth: 22 cm; Inserted by: Lucia Hammer CRNA; Removal Date: 12/09/23; Removal Time: 92512/09/23 07 by Selene Hammer CRNA 12/09/23 09 by Selene Hammer CRNA documented in this encounter Social History Tobacco Use Types Packs/Day Years [...] PM EDT documented as of this encounter OR Notes * Anesthesia Postprocedure Evaluation - Yuan Oneal MD - 12/09/2023 10:44 AM EST Department of Anesthesiology Post-procedure Note Patient: Sandie Manriquez Procedure Summary Date: 12/09/23 Room / Location: [facility] OR [facility] MAIN OR Anesthesia Start: 724 Anesthesia Stop: 934 Procedures: TOTAL SHOULDER ARTHROPLASTY (WRVU 22.13) (Right: Shoulder) MODIFIER SIDUS SHOULDER CHANDLER BIOMET TENODESIS,BICEPS TENDON (PROXIMAL) (WRVU 10.17) (Right: Shoulder) Diagnosis: (shoulder pain) Surgeons: Christine Colby MD Responsible Provider: Yuan Oneal MD Anesthesia Type: general ASA Status: 3 All Anesthesia Providers: Anesthesiologist: Yuan Oneal MD DRY CLIPPER TENDER: Selene Hammer CRNA Vitals Value Taken Time BP 132/80 12/09/23 1030 Temp 36 ??C (96.8 ??F) 12/09/23 0934 Pulse 60 12/09/23 1042 Resp 16 12/09/23 1042 SpO2 91 % 12/09/23 1042 Pain Level 0 12/09/23 0934 Vitals shown include unfiled device data. Patient Location: PACU/[facility] Level of Consciousness: Awake and Alert Pain Management: Satisfactory Analgesia PONV: None Cardiovascular Status: At Baseline Respiratory Status: At Baseline Postoperative Fluid Status: Intravascular EUvolemia Possible Anesthetic Complications: NONE apparent at time of evaluation Final Primary Anesthesia Type: General (The anesthetic type performed was the same as planned.) Comments: * Anesthesia Procedure Notes - Francisco Scherer MD - 12/09/2023 7:40 AM EST Associated Order(s): Anesthesia Block Anesthesia Block Date/Time: 12/09/2023 6:52 AM Start Time: 12/09/2023 6:52 AM End Time: 12/09/2023 6:57 AM Patient Location: PreOp The patient was greeted; the risks and benefits of the procedure were reviewed. Indication: Post-op Pain Control Post-op pain management at the request of surgeon. Block Type: Interscalene nerve block Laterality: Right Position: Sitting Prep: Chlorhexidine, mask, cap, sterile gloves, hand hygeine and patient draped Skin Anesthetic: Skin Anesthetic: Lidocaine 1% dose: 3 Block Technique: SonoPlex 22 5 cm Ultrasound Guided: YES and in-plane Ultrasound Image Saved Single-Shot: Single-shot Local Anesthetic Volume(s) Injected for Nerve Block: BUpivacaine 0.5% - Perineural 20 mL - 12/09/2023 6:52:00 AM Nerve Sensory/MotorTest: Events: no complications Notes: Patient tolerated procedure well and remained in communication throughout. Target structures, needle, and local anesthetic spread were visualized under ultrasound for the duration of the procedure. Color doppler used to evaluate for and avoid any overlying vasculature. No blood aspirated, no pain on injection, no paresthesias. No needle to nerve or vessel contact was observed on ultrasound. Performed by: Fellow: Francisco Scherer MD Attending Physician: Kevin Smith MD Authorized by: Kevin Smith MD * Anesthesia Preprocedure Evaluation - Yuan Oneal MD - 12/08/2023 1:01 PM EST Images from the original note were not included. Pre-Anesthesia Evaluation for: Sandie Manriquez a 63 y.o. female. Procedure(s): TOTAL SHOULDER ARTHROPLASTY (WRVU 22.13) MODIFIER SIDUS SHOULDER CHANDLER BIOMET Patient Active Problem List Diagnosis Date Noted ??? s/p left anatomic stemless TSA, 03/11/23 (Dr Colby) 03/11/2023 Past Medical History: Diagnosis Date ??? Allergies ??? Hypertension ??? Osteoarthritis ??? Rosacea Past Surgical History: Procedure Laterality Date ??? ESOPHAGOGASTRIC FUNDOPLICATION ??? PRO ARTHROPLASTY GLENOHUMERAL JOINT TOTAL SHOULDER Left 03/11/2023 TOTAL SHOULDER ARTHROPLASTY (WRVU 22.13) performed by Christine Colby MD at [facility] MAIN OR ??? PRO REPAIR BICEPS LONG TENDON Left 03/11/2023 TENODESIS,BICEPS TENDON (PROXIMAL) (WRVU 10.17) performed by Christine Colby MD at [facility] MAIN OR Social History Tobacco Use ??? Smoking status: Former Types: Cigarettes ??? Smokeless tobacco: Never Substance Use Topics ??? Alcohol use: Yes Alcohol/week: 14.0 standard drinks of alcohol Types: 14 Glasses of wine per week Social History Substance and Sexual Activity Drug Use Not Currently ??? Types: Marijuana Allergies Allergen Reactions ??? Bee Pollen ??? House Dust ??? Sulfa (Sulfonamide Antibiotics) ??? Miconazole CIS - Rash Medications: MAR and/or home medications have been reviewed. Physical Exam: Preprocedure Vitals Current as of 12/08/23 1301 No BP, pulse, respiration, SpO2, or temperature recorded. Height: 174 cm (5' 8.5) (11/13/23) Weight: 99.8 kg (220 lb) (11/13/23) BMI: 32.96 IBW: 65.1 kg (143 lb 6.9 oz) Airway Assessment: Mallampati: I TM distance: >3 FB Neck ROM: full Cardiovascular Assessment: system normal Pulmonary Assessment: unlabored breathing pulmonary exam normal Dental Assessment: Misc Assessment: IV access: Peripheral line None Anesthesia Plan: ASA 3 general, with a(n) intravenous induction 63 yo woman for RIGHT shoulder arthroplasty. Phx Afib on Eliquis (held >72hrs), Ramy fundiplication, HTN, distant former smoker. Chart and labs reviewed; patient seen and examined Anesthesia history: easy mask, G1v w/ DL, required high dose phenylephrine INF (up to 120 mcg/min) with multiple vasopressin boluses with prior GA for her L TSA. Reports past PONV Assessment/Plan: ASA 3 GA/ETT; routine monitors with pre-operative block, scopolamine patch, +/- art line Risks, plans, and procedures discussed with patient who understands and consents; questions and concerns addressed Region - Other Informed Consent: Anesthetic plan and risks discussed with patient and spouse. Use of blood products discussed with patient who consented to blood products. Plan discussed with attending and DRY CLIPPER TENDER. Anesthesia Screening documented in this encounter Plan of Treatment Not on file documented as of this encounter Procedures Procedure Name Priority Date/Time Associated Diagnosis Comments ANESTHESIA BLOCK Routine 12/09/2023 6:52 AM EST documented in this encounter Results * Anesthesia Block (12/09/2023 6:52 AM EST) Narrative Kevin Smith MD - 12/09/2023 6:52 AM EST Francisco Scherer MD ? 12/09/2023 ??7:41 AM Anesthesia Block Date/Time: 12/09/2023 6:52 AM Start Time: ??12/09/2023 6:52 AM End Time: ??12/09/2023 6:57 AM Patient Location: ??PreOp The patient was greeted; the risks and benefits of the procedure were reviewed. ?? Indication: ??Post-op Pain Control Post-op pain management at the request of surgeon. ?? Block Type: ??Interscalene nerve block Laterality: ??Right Position: ??Sitting Prep: ??Chlorhexidine, mask, cap, sterile gloves, hand hygeine and patient draped Skin Anesthetic: ??Skin Anesthetic: ??Lidocaine 1% ??dose: ??3 Block Technique: ?? SonoPlex ?? 22 ?? 5 cm ??Ultrasound Guided: ??YES and in-plane ??Ultrasound Image Saved ?Single-Shot: ??Single-shot Local Anesthetic Volume(s) Injected for Nerve Block: ?? BUpivacaine 0.5% - Perineural 20 mL - 12/09/2023 6:52:00 AM Nerve Sensory/MotorTest: ??Events: no complications ?? Notes: ?? Patient tolerated procedure well and remained in communication throughout. Target structures, needle, and local anesthetic spread were visualized under ultrasound for the duration of the procedure. Color doppler used to evaluate for and avoid any overlying vasculature. No blood aspirated, no pain on injection, no paresthesias. No needle to nerve or vessel contact was observed on ultrasound. Performed by: ?? Fellow: ?Francisco Scherer MD ?? Attending Physician: ? Kevin Smith MD Authorized by: Kevin Smith MD ?? Kevin Smith MD BORDER GUARD [facility] documented in this encounter Visit Diagnoses Not on filedocumented in this encounter Administered Medications Inactive Administered Medications - up to 3 most recent administrations Medication Order MAR Action Action Date Dose Rate Site BUpivacaine (pf) (Marcaine) (5 mg/mL) 0.5% injection Perineural, Starting on Fri12/09/23 at 0652, Until Fri12/09/23 at 0652, Anesthesia Intra-op, Routine Given 12/09/2023 6:52 AM EST 20 mLs ceFAZolin (Ancef) (100 mg/mL) injection solution Intravenous, PRN, Starting on Fri12/09/23 at 0749, Until Fri12/09/23 at 0941, Anesthesia Intra-op, Routine Given 12/09/2023 7:49 AM EST 2 g dexAMETHasone (Decadron) injection Intravenous, PRN, Starting on Fri12/09/23 at 0757, Until Fri12/09/23 at 0941, Anesthesia Intra-op, Routine Given 12/09/2023 7:57 AM EST 4 mg dexmedeTOMIDine (Precedex) (4 mcg/mL) bolus injection (Anesthsia) Intravenous, PRN, Starting on Fri12/09/23 at 0905, Until Fri12/09/23 at 0941, Anesthesia Intra-op, Routine Given 12/09/2023 9:20 AM EST 4 mcg Given 12/09/2023 9:05 AM EST 4 mcg ePHEDrine sulfate (5 mg/mL) multi-dose injection Intravenous, PRN, Starting on Fri12/09/23 at 0750, Until Fri12/09/23 at 0941, Anesthesia Intra-op, Routine Given 12/09/2023 9:12 AM EST 5 mg Given 12/09/2023 8:54 AM EST 5 mg Given 12/09/2023 8:49 AM EST 5 mg lactated ringers infusion 1,000 mL, at 100 mL/hr, Intravenous, CONTINUOUS, Starting on Fri12/09/23 at 0615, Until Fri12/09/23 at 1233, Day of Surgery (Day of Procedure) Restarted 12/09/2023 7:25 AM EST New Bag 12/09/2023 6:28 AM EST 1,000 mLs 100 mL/hr lactated ringers infusion Intravenous, CONTINUOUS PRN, Starting on Fri12/09/23 at 0734, Until Fri12/09/23 at 0941, Anesthesia Intra-op New Bag 12/09/2023 7:34 AM EST lidocaine (pf) (Xylocaine) (20 mg/mL) 2% injection syringe Intravenous, PRN, Starting on Fri12/09/23 at 0730, Until Fri12/09/23 at 0941, Anesthesia Intra-op, Routine Given 12/09/2023 7:30 AM EST 100 mg ondansetron (pf) (Zofran) (2 mg/mL) injection Intravenous, PRN, Starting on Fri12/09/23 at 0857, Until Fri12/09/23 at 0941, Anesthesia Intra-op, Routine Given 12/09/2023 8:57 AM EST 4 mg PHENYLephrine (Kris-Synephrine) (80 mcg/mL) in sodium chloride 0.9% 250 mL infusion Intravenous, CONTINUOUS PRN, Starting on Fri12/09/23 at 0733, Until Fri12/09/23 at 0941, Anesthesia Intra-op, Routine Rate/Dose Change 12/09/2023 9:07 AM EST 60 mcg/min 45 mL/hr Rate/Dose Change 12/09/2023 9:04 AM EST 70 mcg/min 52.5 mL /hr Rate/Dose Change 12/09/2023 8:55 AM EST 80 mcg/min 60 mL/h r propofoL (Diprivan) (10 mg/mL) infusion Intravenous, CONTINUOUS PRN, Starting on Fri12/09/23 at 0744, Until Fri12/09/23 at 0941, Anesthesia Intra-op, Routine Rate/Dose Change 12/09/2023 8:44 AM EST 50 mcg/kg/min 24.3 mL/hr Rate/Dose Change 12/09/2023 8:40 AM EST 40 mcg/kg/min 19.4 4 mL/hr New Bag 12/09/2023 7:44 AM EST 50 mcg/kg/min 24.3 mL/hr propofoL (Diprivan) 10 mg/mL bolus injection (Anesthesia) Intravenous, PRN, Starting on Fri12/09/23 at 0730, Until Fri12/09/23 at 0941, Anesthesia Intra-op Given 12/09/2023 9:20 AM EST 30 mg Given 12/09/2023 7:30 AM EST 200 mg rocuronium (Zemuron) (10 mg/mL) multi-dose injection Intravenous, PRN, Starting on Fri12/09/23 at 0755, Until Tu12/09/23 at 0941, Anesthesia Intra-op, Routine Given 12/09/2023 8:51 AM EST 10 mg Given 12/09/2023 7:55 AM EST 20 mg Given 12/09/2023 7:31 AM EST 50 mg sugammadex (Bridion) 100 mg/mL injection Intravenous, PRN, Starting on Fri12/09/23 at 0923, Until Fri12/09/23 at 0941, Anesthesia Intra-op, Routine Given 12/09/2023 9:23 AM EST 210 mg tranexamic acid (Cyklokapron) (100 mg/mL) IV bolus Intravenous, Administer over 8 Hours, PRN, Starting on Fri12/09/23 at 0747, Until Fri12/09/23 at 0941, Anesthesia Intra-op, Routine Given 12/09/2023 7:47 AM EST 1,000 mg documented in this encounter Care Teams Kelp Cutter Relationship Specialty Start Date End Date Osbaldo Dewitt APRN [address] [place] [phone] PCP - General Family Medicine 12/31/22 documented as of this encounter
--- OUTSIDE RECORDS SUMMARY | 2024-09-30 00:23 | XMS_ITS | Encounter Summary ---
Author Organization [facility] [place] [address] Care Team Providers Care Cfo Name Role Phone Osbaldo Dewitt APRN Primary Care Provider [phone] Encounter Details Date Type Department Care Team (Late st Contact Info) Description 02/11/2023 Orders Only [place] [address] Christine Colby MD [facility] [place] [address] Chronic pain in left shoulder Social History Tobacco Use Types Packs/Day Years Used Date Smoking Tobacco: Never Smokeless Tobacco: Never Sex and Gender Information Value Date Recorded Sex Assigned at Female 01/22/2023 7:48 PM EDT Gender Identity Female 01/22/2023 7:48 PM EDT Sexual Orientation Straight 12/26/2023 1: 48 PM EDT documented as of this encounter Plan of Treatment Not on file documented as of this encounter Visit Diagnoses Diagnosis Chronic pain in left shoulder Pain in joint, shoulder region documented in this encounter Care Teams Cfo Relationship Specialty Start Date End Date Osbaldo Dewitt APRN [address] [place] [phone] PCP - General Family Medicine 12/31/22 documented as of this encounter
--- OUTSIDE RECORDS SUMMARY | 2024-09-30 00:23 | XMS_ITS | Encounter Summary ---
[place] [address] Care Team Providers Care Surgery Tech Name Role Phone Osbaldo Dewitt APRN Primary Care Provider [phone] Encounter Details Date Type Department Care Team (Late st Contact Info) Description 02/20/2023 Telephone [place] [address] Christine Colby MD [facility] DR [place]THOPAED[place] [address] Social History Tobacco Use Types Packs/Day Years Used Date Smoking Tobacco: Never Smokeless Tobacco: Never Sex and Gender Information Value Date Recorded Sex Assigned at Female 01/22/2023 7:48 PM EDT Gender Identity Female 01/22/2023 7:48 PM EDT Sexual Orientation Straight 12/26/2023 1: 48 PM EDT documented as of this encounter Miscellaneous Notes * Telephone Encounter - Juhi Fabian - 02/20/2023 10:09 AM EDT ERROR documented in this encounter Plan of Treatment Not on file documented as of this encounter Visit Diagnoses Not on filedocumented in this encounter Care Teams Surgery Tech Relationship Specialty Start Date End Date Osbaldo Dewitt APRN [address] [place] [address] [place] [phone] PCP - General Family Medicine 12/31/22 documented as of this encounter
--- OUTSIDE RECORDS SUMMARY | 2024-09-30 00:23 | XMS_ITS | Encounter Summary ---
Author Organization [facility], 1928–[address] [place] [address] Care Team Providers Care Reimbursement Liaison Name Role Phone Osbaldo Dewitt APRN Primary Care Provider [phone] Reason for Referral * Physical Therapy (Routine) - Closed Specialty Diagnoses / Procedures Referred By Chance le Referred To Contact Diagnoses Primary osteoarthritis of both shoulders Christine Colby MD [facility] [place] [address] Referral ID Status Reason Start Date Expiration Date V isits Requested Visits Authorized [id number] Closed Evaluate and Treat 03/06/2023 09/02/2023 12 12 Reason for Visit * Reason Comments Pre-op Exam 03-11-23 Left TSA Encounter Details Date Type Department Care Team (Latest Contact Info) Description 03/06/2023 10:40 AM EDT [place] [address] Christine Colby MD [facility] [place] [address] Primary osteoarthritis of both shoulders; Primary osteoarthritis of left shoulder Social History Tobacco Use Types [...] - Inhaled Oxygen Concentration - - Weight 108.9 kg (240 lb) 03/06/2023 10:26 AM EDT Height 175.3 cm (5' 9) 03/06/2023 10:26 AM EDT Body Mass Index 35.44 03/06/2023 10:26 AM EDT documented in this encounter Progress Notes * Christine Colby MD - 03/06/2023 10:40 AM EDT Shoulder Service [place], [place] Date of Evaluation: 03/06/2023 Subjective: Sandie Manriquez is interested in proceeding with total shoulder replacement. She is here today to discuss this further. Physical Examination Alert and oriented, in no apparent distress. The skin at the surgical site is clean without evidence of infection. Neurological exam is intact in the radial, median, ulnar, axillary, and musculocutaneous nerve distributions. Range of Motion: Active ROM: 150 degrees forward elevation, 40 degrees external rotation at the side, and internal rotation of L2. Cuff strength 5/5 ER/IR/Abd Imaging: CT scan reviewed. She has a B2 glenoid that appears reconstructable, possibly with augmented poly. Assessment: We discussed both operative and nonoperative [...] heartattack, stroke, blood clots, and . I also informed the patient that I do consulting work regarding design and development of shoulder replacement implants and that I work with other surgeons in training/education in the use of shoulder replacement implants that may be used during this procedure. I solicited and answered any questions the patient had about the procedure, risks, the rehab course, or the prognosis. Chirstine Colby M.D., M.S. Professor of Orthopaedic Surgery Formerly [facility] Department of [place] [address] This note was created with [employer] voice recognition software. Please excuse any typos. * Clint Saxena - 03/06/2023 10:40 AM EDT Images from the original note were not included. Upper Extremity Pre-Operative Patient Education Procedure: Left Upper procedures: Total Shoulder Arthroplasty Post-op Imaging order placed: No H&P: To be completed PCP Consent: The surgical consent was reviewed with Sandie by Dr. Dr. Colby. Procedure, risks, and benefits were reviewed. Questions were solicited and answered. The Sandie understands these and the surgical consent was signed. 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 Chronic anti-coagulation: no Anticoagulation plan post op: POSTOPANTICOAG: ASA 81mg Aspirin BID for 30 days 03/06/2023 10:40 AM 02/07/2023 9:00 AM Opioid PDMP [place] PDMP Query Date 03/06/2023 02/07/2023 [place] PDMP Query Date 03/06/2023 02/07/2023 [place] PDMP Query Date 03/06/2023 02/07/2023 Sandie Manriquez is being prescribed [...] the patient require VNA services post-op: No BRITNI [place], VTLAT, ATC Inspector [employer], Orthopedics and Sports Medicine Tel Fax Replaced By [facility] documented in this encounter Plan of Treatment Scheduled Referrals Name Type Priority Associated Diagnoses Orde r Schedule Referral to Physical Therapy Outpatient Referral Routine Primary osteoarthritis of both shoulders Ordered: 03/06/2023 documented as of this encounter Visit Diagnoses Diagnosis Primary osteoarthritis of both shoulders Primary osteoarthritis of left shoulder Primary localized osteoarthrosis, shoulder region documented in this encounter Care Teams Reimbursement Liaison Relationship Specialty Start Date End Date Osbaldo Dewitt APRN [address] [place] [phone] PCP - General Family Medicine 12/31/22 documented as of this encounter
--- OUTSIDE RECORDS SUMMARY | 2024-09-30 00:23 | XMS_ITS | Encounter Summary ---
Author Organization [place] [address] Care Team Providers Care Postal Service Sectional Center Manager Name Role Phone Osbaldo Dewitt APRN Primary Care Provider [phone] Encounter Details Date Type Department Care Team (Late st Contact Info) Description 02/27/2023 Telephone [place] [address] Christine Colby MD [facility] [place] [address] Social History Tobacco Use Types Packs/Day Years [...] on filedocumented in this encounter Care Teams [employer] Section[employer] Manager Relationship Specialty Start Date End Date Osbaldo Dewitt APRN [address] [place] [phone] PCP - General Family Medicine 12/31/22 documented as of this encounter
--- OUTSIDE RECORDS SUMMARY | 2024-09-30 00:23 | XMS_ITS | Encounter Summary ---
[facility] [place] [address] Care Team Providers Care Delicatessen Department Manager Name Role Phone Osbaldo Dewitt Yaron PAGE Primary Care Provider [phone] Reason for Visit * Auth/Cert (Routine) Specialty Diagnoses / Procedures Referred By Chance t Referred To Contact Diagnoses shoulder arthritis Procedures PRO ARTHROPLASTY GLENOHUMERAL JOINT TOTAL SHOULDER PRO REPAIR BICEPS LONG TENDON TOTAL SHOULDER ARTHROPLASTY (WRVU 22.13) MODIFIER BEACH CHAIR SCHLEIN TENODESIS,BICEPS TENDON (PROXIMAL) (WRVU 10.17) Christine Colby MD [facility] [place] [address] [facility] Referral ID Status Reason Start Date Expiration Date Visits Re quested Visits Authorized [id number] 1 1 Encounter Details Date Type Department Care Team (Late st Contact Info) Description 03/11/2023 7:22 AM EDT Anesthesia Event [place] [address] Roderick Garcia MD [facility] [place] [address] Anesthesia Record Procedure Summary Procedure Name Responsible Anesthesiologist Anesthesia Start Time Anesthesia Stop Time TOTAL SHOULDER ARTHROPLASTY (WRVU 22.13) (Left: Shoulder) Roderick Garcia MD 03/11/23 0722 03/11/23 0955 Events Date Time Event Comment 03/11/2023 0720 0722 AN Verify 0722 Start 0722 An Start Data 0730 An Induction 0735 An Intubation 0735 Anesthesia Ready 0754 Procedure Start 0802 Break/Relief In I assumed ca re for Break Relief before which we: 1. Identified the patient 2. Identified the responsible provider(s) 3. Reviewed the pertinent medical history 4. Discussed the surgical plan and course 5. Reviewed intra-op anesthesia management and issues during anesthesia 6. Set expectations for the relief (and/or post-procedure) period 7. Allowed opportunity for questions and acknowledgement of understanding Saul Rizo CRNA 0826 Break/Relief Out 0944 Extubation/LMA Out Following commands, Vt > 350, oropharynx suctioned and extubated to facemask without event. 0947 an stop data 0954 Recovery or ICU Handoff Pam ent care was transferred to the destination unit staff after review of the patient's medical history, current anesthetic/surgical status and plan, according to the Provider Handoff Checklist. 0955 Stop Meds Name Total IV Lidocaine 50 mg Propofol 390 mg Rocuronium 70 mg PHENYLephrine 520 mcg ePHEDrine 35 mg Ondansetron 4 mg Dexamethasone 8 mg Neostigmine 5 mg Glycopyrrolate 0.6 mg PHENYLephrine INF 11,540 mcg Propofol INF 510.51 mg tranexamic acid (Cyklokapron) (100 mg/mL ) infusion 1,661 mg 1,000 mg ceFAZolin (Ancef) 2 g vial a ttach to sodium chloride 0.9% 100 mL Mini-Bag Plus 2 g BUpivacaine 0.5% 30 mL Vasopressin 2.5 Units Lactated Ringers 1,000 mL * Agents Name O2 * Blood No blood administrations on file. Lines, Drains, and Airways Type Details Placement Removal Incision 03/11/23; Left, anterior; shoulder; LDA not present upon assessment; 12/09/23; 0806 03/11/23 0000 by Myra Dobson RN 12/09/23 0806 by Mey Prince, RN (RETIRED) Peripheral IV Line - Single Lumen 03/11/23; 0648; metacarpal vein (top of hand), right; [id number] catheter system; Anatomical Landmarks; 20 gauge, 1 in length; distraction, tolerated well, complained of discomfort; 03/11/23; 1149 03/11/23 0648 by Kevin Mosher RN 03/11/23 1149 by Buzz Horton RN ETT Mask Ventilation: Ea sy (1); ETT Type: Cuffed, Oral; ETT Size: 7 mm; Mac Blade: 3; Notes: Asleep, Pre-O2, Stylette; Attempts: 1; Laryngoscopy Grade: 1; ETT Placement Verified By: Auscultation, Capnometry, Visual; Secured at Teeth: 21 cm; Inserted by: EDSON Lynn; Removal Date: 03/11/23; Removal Time: 94303/11/23 07 by Jay Lynn CRNA 03/11/23 0944 by Jay Lynn CRNA documented in this encounter Social History [...] OR Notes * Anesthesia Postprocedure Evaluation - Roderick Garcia MD - 03/11/2023 9:56 AM EDT Department of Anesthesiology Post-procedure Note Patient: Sandie Manriquez Procedure Summary Date: 03/11/23 Room / Location: [facility] OR [facility] MAIN OR Anesthesia Start: 721 Anesthesia Stop: 954 Procedures: TOTAL SHOULDER ARTHROPLASTY (WRVU 22.13) (Left: Shoulder) MODIFIER BEACH CHAIR SCHLEIN (Shoulder) TENODESIS,BICEPS TENDON (PROXIMAL) (WRVU 10.17) (Left: Shoulder) MODIFIER SIDUS SHOULDER CHANDLER BIOMET Diagnosis: (shoulder arthritis) Surgeons: Chrisitne Colby MD Responsible Provider: Roderick Garcia MD Anesthesia Type: general ASA Status: 2 All Anesthesia Providers: Anesthesiologist: Roderick Garcia MD PATHOLOGY TECHNICIAN: Jay Lynn CRNA Vitals Value Taken Time BP Temp Pulse Resp SpO2 Pain Level Patient Location: PACU/SDP Level of Consciousness: Awake and Alert Pain Management: Satisfactory Analgesia PONV: None Cardiovascular Status: Hemodynamically Stable Respiratory Status: Stable Respiratory Status Postoperative Fluid Status: Intravascular EUvolemia Possible Anesthetic Complications: NONE apparent at time of evaluation Final Primary Anesthesia Type: General (The anesthetic type performed was the same as planned.) Comments: * Anesthesia Procedure Notes - Selene Lindsey - 03/11/2023 7:19 AM EDT Associated Order(s): Anesthesia Block Anesthesia Block Date/Time: 03/11/2023 7:07 AM Start Time: 03/11/2023 7:07 AM End Time: 03/11/2023 7:14 AM Patient Location: Block Room The patient was greeted; the risks and benefits of the procedure were reviewed. Indication: Post-op Pain Control Post-op pain management at the request of surgeon. Block Type: Interscalene nerve block Laterality: Left Position: Supine Prep: Chlorhexidine, patient draped and mask, cap, sterile gloves, hand hygeine Skin Anesthetic: Skin Anesthetic: Lidocaine 1% dose: 4 Block Technique: SonoPlex 21 5 cm Ultrasound Guided: YES and in-plane Ultrasound Image Saved Ultrasound guidance was used to identify the targeted neuronal structure. Ultrasound was also used to identify needle position and to identify tissue (bone, muscle, and blood vessels) to prevent inadvertent intraneural or intravascular needle placement and injection. The spread of local anesthetic was confirmed with live ultrasound imaging. Single-Shot: Single-shot Local Anesthetic Volume(s) Injected for Nerve Block: BUpivacaine 0.5% - Perineural 30 mL - 03/11/2023 7:07:00 AM Nerve Sensory/MotorTest: Events: no complications Notes: Performed under sterile technique with light sedation. Target structures, needle, and local anesthetic spread were visualized under US guidance for the duration of the procedure. Administered bupivacaine 0.5% 25 mL to brachial plexus at interscalene level / 5 mL to superficial cervical plexus block. Negative aspirations every 5 cc. No blood aspirated, no pain on injection, no paresthesias. No needle to nerve contact was observed on ultrasound. Vital signs stable. Patient in communication throughout, tolerated procedure without issue. Performed by: Resident/PATHOLOGY TECHNICIAN: Selene Lindsey MD Fellow: Gladys Clarke MD Attending Physician: Kevin Smith MD Authorized by: Kevin Smith MD * Anesthesia Preprocedure Evaluation - Gladys Clarke MD - 03/10/2023 4:38 PM EDT Images from the original note were not included. Pre-Anesthesia Evaluation for: Sandie Manriquez a 62 y.o. female. Procedure(s): TOTAL SHOULDER ARTHROPLASTY (WRVU 22.13) MODIFIER BEACH CHAIR SCHLEIN TENODESIS,BICEPS TENDON (PROXIMAL) (WRVU 10.17) MODIFIER SIDUS SHOULDER CHANDLER BIOMET There are no problems to display for this patient. No past medical history on file. No past surgical history on file. Social History Tobacco Use ??? Smoking status: Never ??? Smokeless tobacco: Never Substance Use Topics ??? Alcohol use: Not on file Social History Substance and Sexual Activity Drug Use Not on file Allergies Allergen Reactions ??? Sulfa (Sulfonamide Antibiotics) ??? Miconazole CIS - Rash Medications: MAR and/or home medications have been reviewed. Physical Exam: Preprocedure Vitals Current as of 03/10/23 1638 No BP, pulse, respiration, SpO2, or temperature recorded. Height: 175.3 cm (5' 9) (03/06/23) Weight: 108.9 kg (240 lb) (03/06/23) BMI: 35.44 IBW: 66.2 kg (146 lb 0.4 oz) Airway Assessment: Mallampati: I TM distance: >3 FB Neck ROM: full Cardiovascular Assessment: system normal Pulmonary Assessment: unlabored breathing Dental Assessment: Misc Assessment: IV access: Peripheral line Last Filed Perioperative Cognitive Screening None Anesthesia Plan: ASA 2 general, with a(n) intravenous induction 62 y.o. female, BMI 35.44 (108.9 kg), Allergies: SULFA (SULFONAMIDE ANTIBIOTICS), MICONAZOLE, presents for left TSA due to shoulder arthritis. 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 Use of blood products discussed with patient who consented to blood products. Anesthesia Screening documented in this encounter Plan of Treatment Not on file documented as of this encounter Procedures Procedure Name Priority Date/Time Associated Diagnosis Comments ANESTHESIA BLOCK Routine 03/11/2023 7:07 AM EDT documented in this encounter Results * Anesthesia Block (03/11/2023 7:07 AM EDT) Narrative Kevin Smith MD - 03/11/2023 7:07 AM EDT Selene Lindsey MD ? 03/11/2023 ??7:20 AM Anesthesia Block Date/Time: 03/11/2023 7:07 AM Start Time: ??03/11/2023 7:07 AM End Time: ??03/11/2023 7:14 AM Patient Location: ??Block Room The patient was greeted; the risks and benefits of the procedure were reviewed. ?? Indication: ??Post-op Pain Control Post-op pain management at the request of surgeon. ?? Block Type: ??Interscalene nerve block Laterality: ??Left Position: ??Supine Prep: ??Chlorhexidine, patient draped and mask, cap, sterile gloves, hand hygeine Skin Anesthetic: ??Skin Anesthetic: ??Lidocaine 1% ??dose: ??4 Block Technique: ?? SonoPlex ?? 21 ?? 5 cm ??Ultrasound Guided: ??YES and in-plane ??Ultrasound Image Saved ?Ultrasound guidance was used to identify the targeted neuronal structure. Ultrasound was also used to identify needle position and to identify tissue (bone, muscle, and blood vessels) to prevent inadvertent intraneural or intravascular needle placement and injection. The spread of local anesthetic was confirmed with live ultrasound imaging. ?Single-Shot: ??Single-shot Local Anesthetic Volume(s) Injected for Nerve Block: ?? BUpivacaine 0.5% - Perineural 30 mL - 03/11/2023 7:07:00 AM Nerve Sensory/MotorTest: ??Events: no complications ?? Notes: ?? Performed under sterile technique with light sedation. Target structures, needle, and local anesthetic spread were visualized under US guidance for the duration of the procedure. Administered bupivacaine 0.5% 25 mL ??to brachial plexus at interscalene level / 5 mL to superficial cervical plexus block. Negative aspirations every 5 cc. No blood aspirated, no pain on injection, no paresthesias. No needle to nerve contact was observed on ultrasound. Vital signs stable. Patient in communication throughout, tolerated procedure without issue. Performed by: ?? Resident/PATHOLOGY TECHNICIAN: ? Selene Lindsey MD ?? Fellow: ?Gladys Clarke MD ?? Attending Physician: ? Kevin Smith MD Authorized by: Kevin Smith MD Kevin Smith MD [employer] [facility] documented in this encounter Visit Diagnoses Not on filedocumented in this encounter Administered Medications Inactive Administered Medications - up to 3 most recent administrations Medication Order MAR Action Action Date Dose Rate Site BUpivacaine (pf) (Marcaine) (5 mg/mL) 0.5% injection Perineural, Starting on Fri03/11/23 at 0707, Until Fri03/11/23 at 0707, Anesthesia Intra-op, Routine Given 03/11/2023 7:07 AM EDT 30 mLs ceFAZolin (Ancef) 2 g vial attach to sodium chloride 0.9% 100 mL Mini-Bag Plus 2 g, Intravenous, EVERY 4 HOURS, 1 dose, First dose on Fri03/11/23 at 0645, Administer over 30 Minutes, Redose after 4 hours., Day of Surgery (Day of Procedure), Indication for (Active or Suspected): Prophylaxis New Bag 03/11/2023 7:42 AM EDT 2 g dexAMETHasone (Decadron) injection Intravenous, PRN, Starting on Fri03/11/23 at 0737, Until Fri03/11/23 at 0955, Anesthesia Intra-op, Routine Given 03/11/2023 7:37 AM EDT 8 mg ePHEDrine sulfate (5 mg/mL) multi-dose injection Intravenous, PRN, Starting on Fri03/11/23 at 0810, Until Fri03/11/23 at 0955, Anesthesia Intra-op, Routine Given 03/11/2023 9:16 AM EDT 10 mg Given 03/11/2023 8:30 AM EDT 10 mg Given 03/11/2023 8:19 AM EDT 5 mg glycopyrrolate (Robinul) (0.2 mg/mL) multi-dose injection Intravenous, PRN, Starting on Fri03/11/23 at 0929, Until Fri03/11/23 at 0955, Anesthesia Intra-op, Routine Given 03/11/2023 9:29 AM EDT 0.6 mg lactated ringers infusion Intravenous, CONTINUOUS PRN, Starting on Fri03/11/23 at 0722, Until Fri03/11/23 at 0955, Anesthesia Intra-op New Bag 03/11/2023 9:26 AM EDT New Bag 03/11/2023 7:22 AM EDT lidocaine (pf) (Xylocaine) (20 mg/mL) 2% injection syringe Intravenous, PRN, Starting on Fri03/11/23 at 0730, Until Fri03/11/23 at 0955, Anesthesia Intra-op, Routine Given 03/11/2023 7:30 AM EDT 50 mg neostigmine (Bloxiver) (1 mg/mL) injection Intravenous, PRN, Starting on Fri03/11/23 at 0929, Until Fri03/11/23 at 0955, Anesthesia Intra-op, Routine Given 03/11/2023 9:29 AM EDT 5 mg ondansetron (pf) (Zofran) (2 mg/mL) injection Intravenous, PRN, Starting on Fri03/11/23 at 0914, Until Fri03/11/23 at 0955, Anesthesia Intra-op, Routine Given 03/11/2023 9:14 AM EDT 4 mg PHENYLephrine (Kris-Synephrine) (80 mcg/mL) in sodium chloride 0.9% 250 mL infusion Intravenous, CONTINUOUS PRN, Starting on Fri03/11/23 at 0744, Until Fri03/11/23 at 0955, Anesthesia Intra-op, Routine Rate/Dose Change 03/11/2023 8:56 AM EDT 100 mcg/min 75 mL/hr Rate/Dose Change 03/11/2023 8:27 AM EDT 120 mcg/min 90 mL/ hr Rate/Dose Change 03/11/2023 8:10 AM EDT 80 mcg/min 60 mL/h r PHENYLephrine in NS (PF) (KRIS-SYNEPHRINE) 0.8 mg/10 mL (80 mcg/mL) multi-dose injection Syringe Intravenous, PRN, Starting on Fri03/11/23 at 0739, Until Fri03/11/23 at 0955, Anesthesia Intra-op, Routine Given 03/11/2023 8:27 AM EDT 80 mcg Given 03/11/2023 8:18 AM EDT 120 mcg Given 03/11/2023 8:14 AM EDT 80 mcg propofoL (Diprivan) (10 mg/mL) infusion Intravenous, CONTINUOUS PRN, Starting on Fri03/11/23 at 0730, Until Fri03/11/23 at 0955, Anesthesia Intra-op, Routine Rate/Dose Change 03/11/2023 8:16 AM EDT 40 mcg/kg/min 26.52 mL/hr New Bag 03/11/2023 7:30 AM EDT 50 mcg/kg/min 33.15 mL/h r propofoL (Diprivan) 10 mg/mL bolus injection (Anesthesia) Intravenous, PRN, Starting on Fri03/11/23 at 0730, Until Fri03/11/23 at 0955, Anesthesia Intra-op Given 03/11/2023 9:21 AM EDT 50 mg Given 03/11/2023 8:24 AM EDT 40 mg Given 03/11/2023 7:30 AM EDT 300 mg rocuronium (Zemuron) (10 mg/mL) multi-dose injection Intravenous, PRN, Starting on Fri03/11/23 at 0731, Until Fri03/11/23 at 0955, Anesthesia Intra-op, Routine Given 03/11/2023 8:24 AM EDT 20 mg Given 03/11/2023 7:31 AM EDT 50 mg tranexamic acid (Cyklokapron) (100 mg/mL) infusion 1,661 mg 1,661 mg (rounded from 1,660.5 mg = 15 mg/kg/dose ? 110.7 kg), Intravenous, ONCE, 1 dose, On Fri03/11/23 at 0645, Administer no faster than 100 mg/min., Day of Surgery (Day of Procedure), STAT Given 03/11/2023 7:42 AM EDT 1,000 mg vasopressin (Vasostrict) injection Intravenous, PRN, Starting on Fri03/11/23 at 0836, Until Fri03/11/23 at 0955, Anesthesia Intra-op, Routine Given 03/11/2023 9:26 AM EDT 0.5 Units Given 03/11/2023 9:11 AM EDT 0.5 Units Given 03/11/2023 9:03 AM EDT 0.5 Units documented in this encounter Care Teams Delicatessen Department Manager Relationship Specialty Start Date End Date Osbaldo Dewitt, CAMILO [address] [place] [phone] PCP - General Family Medicine 12/31/22 documented as of this encounter
--- OUTSIDE RECORDS SUMMARY | 2024-09-30 00:23 | XMS_ITS | Encounter Summary ---
[place] [address] Care Team Providers Care Product Development Technician Name Role Phone EsdrasOsbaldo weston Ayana PAGE Primary Care Provider [phone] Encounter Details Date Type Department Care Team (Late st Contact Info) Description 03/14/2023 [place] [id number] Selene Lindsey MD [facility] [place] [address] Social History Tobacco Use Types Packs/Day Years [...] encounter Miscellaneous Notes * Telephone Encounter - Selene Lindsey - 03/14/2023 9:45 AM EDT Regional Anesthesia Post-Procedure Assessment Spoke to patient via telephone. Peripheral nerve block resolved appropriately. No residual weakness/numbness/decreased sensation. No sign of infection at injection site. Tolerating POs appropriately.Patient very satisfied with nerve block. If there are any questions or concerns regarding the nerve block, please do not hesitate to contactthe regional anesthesia team. Selene Lindsey MD 03/14/2023 Regional Anesthesia Pager [phone] documented in this encounter Plan of Treatment Not on file documented as of this encounter Visit Diagnoses Not on filedocumented in this encounter Care Teams Product Development Technician Relationship Specialty Start Date End Date Osbaldo Dewitt APRN [address] [place] [phone] PCP - General Family Medicine 12/31/22 documented as of this encounter
--- OUTSIDE RECORDS SUMMARY | 2024-09-30 00:23 | XMS_ITS | Encounter Summary ---
[facility] Organization [facility] [place] [address] Care Team Providers Care Utility Mechanic Supervisor Name Role Phone Osbaldo Dewitt APRN Primary Care Provider [phone] Encounter Details Date Type Department Care Team (Latest Contact Info) Description 03/05/2023 Travel Social History Tobacco Use Types Packs/Day [...] on filedocumented in this encounter Care Teams Utility Mechanic Supervisor Relationship Specialty Start Date End Date Osbaldo Dewitt APRN [address] [place] [phone] PCP - General Family Medicine 12/31/22 documented as of this encounter
--- OUTSIDE RECORDS SUMMARY | 2024-09-30 00:23 | XMS_ITS | Encounter Summary ---
[place] [address] Care Team Providers Care Telecommunications Network Planner Name Role Phone Osbaldo Dewitt APRN Primary Care Provider [phone] Reason for Referral * Consultation (Routine) - Closed Specialty Diagnoses / Procedures Referred By Chance le Referred To Contact Rheumatology Diagnoses Glenohumeral arthritis, left Synovitis Rosalee Powers PA [facility] [place] [address] [facility] Rheumatology [address] [place] [phone] Referral ID Status Reason Start Date Expiration Date V isits Requested Visits Authorized [id number] Closed Consult, Test & Treat 03/25/2023 03/24/2024 1 1 Reason for Visit * Reason Comments Post Op 03-11-23 left TSA Encounter Details Date Type Department Care Team (Late st Contact Info) Description 03/25/2023 10:00 AM EDT Office [place] [address] Rosalee Powers PA [facility] [place] [address] s/p left anatomic stemless TSA, 6/6/23 (Dr Colby); Synovitis Social History Tobacco Use Types Packs/Day Years [...] - Inhaled Oxygen Concentration - - Weight 107 kg (236 lb) 03/25/2023 10:11 AM EDT Height 175.3 cm (5' 9) 03/25/2023 10:11 AM EDT Body Mass Index 34.85 03/25/2023 10:11 AM EDT documented in this encounter Progress Notes * Rosalee Powers PA - 03/25/2023 10:00 AM EDT Images from the original note were not included. PATIENT NAME: Sandie Manriquez AGE: 62 y.o. MR#: [id number] DATE OF VISIT: 03/25/2023 DATE OF SURGERY: 03/11/2023 SURGERY DESCRIPTION: TOTAL SHOULDER ARTHROPLASTY (WRVU 22.13) (Left) MODIFIER BEACH CHAIR SCHLEIN (N/A) TENODESIS,BICEPS TENDON (PROXIMAL) (WRVU 10.17) (Left) MODIFIER SIDUS SHOULDER CHANDLER BIOMET (N/A) SURGEON: Dr. Colby CHIEF COMPLAINT: 2 weeks S/P above procedure HISTORY OF PRESENT ILLNESS: Ms. Manriquez is a 62 y.o. female who presents 2 weeks s/p the above procedures for office follow up. She has been doing well since her surgery. She is not having much pain at this point. She states her shoulder has much less pain now than it did going into surgery. She isgoing to physical therapy and is working on gentle range of motion. She is using her sling as recommended. She states she has felt fatigued and also has had decreased appetite, but she seems to be managing this well. Ms. Manriquez denies fever or chills. PHYSICAL EXAM: Ms. Manriquez is a 62 y.o. female who is in no apparent distress, alert, and cooperative. Inspection: Surgical incision is healing without complication. There is no evidence of infection ROM/Strength: Full shoulder range of motion was not assessed today. She is able to perform limited elbow, wrist, and finger range of motion. Neurovascular: She states she has noticed some numbness in her thumb since surgery, but this is improving. 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 Correlation with clinical and serologic studies is suggested. SURVEY RESPONSES: 03/19/2023 4:11 PM [facility] Surgical Postop Visit PROMIS-10 General Health Good PROMIS-10 Quality of Life Good PROMIS-10 Physical Health Good PROMIS-10 Mental Health Good PROMIS-10 Social Activity Good PROMIS-10 Everyday Activities Mostly PROMIS-10 Pain 5 PROMIS-10 Fatigue Moderate PROMIS-10 Social Roles Good PROMIS-10 Anxious or Depressed Rarely PROMIS PHYSICAL HEALTH SCORE 42.3 PROMIS MENTAL HEALTH SCORE 45.8 Problems with surgical incision/wound after surgery No Gone to ER since knee surgery No Admitted to hospital since recent ortho surgery No Additional surgery on same body part No Satisfaction with Treatment Satisfied Choose Same Treatment Again Definitely yes 03/19/2023 4:14 PM [facility] Response ASES VAS-RIGHT 6 ASES ADL-RIGHT ARM 10 ASES RIGHT ARM 36.67 ASSESSMENT: 2 weeks s/p above procedure PLAN: Her suture tails were trimmed today. She can get her incision wet in the shower. She will continue with physical therapy and will continue to follow the total shoulder replacement protocol withher initial range of motion limits of 130 degrees forward flexion and 30 degrees external rotation.She will continue with sling immobilization until she is 6 weeks postop. She can come out of her sling for showering and physical therapy. She had extensive synovitis in her shoulder at the time of surgery that could be indicative of an inflammatory arthritis. She would be interested in seeing rheumatology to see if there is any concern for an underlying inflammatory arthritis as she has multipleother arthritic joints. She states her right shoulder also has arthritis and is slightly more symptomatic since she is using her right arm more. She is going to look into getting another glenohumeralinjection to see if this will help with her right shoulder symptoms. The patient understands to contact us if she has any other questions or concerns. The patient will follow up in 4 weeks with left shoulder x-rays. The above documentation was completed using [employer] voice recognition software. documented in this encounter Plan of Treatment Scheduled Referrals Name Type Priority Associated Diagnoses Order Schedule Referral to Rheumatology Outpatient Referral Routine s/p left anatomic stemless TSA, 03/11/23 (Dr Colby) Synovitis Ordered: 03/25/2023 documented as of this encounter Procedures Procedure Name Priority Date/Time Associated Diagnosis Comments CRP, ACUTE INFLAMMATION Routine 03/25/2023 11:14 AM EDT Synovitis ANTI-CYCLIC CITRULLINATED PEPTIDE AB Routine 03/25/2023 11:14 AM EDT Synovitis HEMOGRAM Routine 03/25/2023 11:14 AM EDT Synovitis DIFFERENTIAL, AUTOMATED Routine 03/25/2023 11:14 AM EDT Synovitis SEDIMENTATION RATE Routine 03/25/2023 11 :14 AM EDT Synovitis CBC (WITH DIFF) Routine 03/25/2023 11:14 AM EDT Synovitis HC RHEUMATOID FACTOR Routine 03/25/2023 11:14 AM EDT Synovitis HC VENIPUNCTURE Routine 03/25/2023 11:14 AM EDT Synovitis documented in this encounter Results * XR [...] who have questions please contact the health in home caregiver that requested your imaging first. ? Electronically signed by: Lynda Parekh MD, [facility] ([phone]), at 04/25/2023 4:11 PM Narrative 04/25/2023 4:11 [...] patients who have questions please contactthe health in home caregiver that requested your imaging first. Electronically signed by: Lydna Parekh MD, [facility]([phone]), at 04/25/2023 4:11 PM Christine Colby MD IMG DX ORDERABLES * Differential, Automated (03/25/2023 11:14 AM EDT) Neutrophil % 69.7 % [facility] Neutrophil Absolute 5.69 1.70 - 6.10 x10(3)/[facility] LAB[facility] Lymph % 15.7 % [facility] Lymphocytes Abs 1.3 0.9 - 3.2 x10(3)/[facility] LABOR[facility] Monocyte % 11.1 % [facility] Monocyte Abs 0.9 0.3 - 0.9 x10(3)/[facility] Eos % 2.4 % [facility] Eosinophils Abs 0.2 0.0 - 0.4 x10(3)/[facility] LAB[facility] Basophil % 0.7 % [facility] Baso Absolute 0.1 0.0 - 0.1 x10(3)/[facility] LABOR[facility] Immature Gran % 0.40 % [facility] Comment: Immature granulocytes(IG's)percentage and absolute count will include metamyelocytes, myelocytes, and promyelocytes. Blood smears from CBCs yielding IG's will be scanned manually for concordance. If this scan disagrees with the automated IG or if promyelocytes are noted, a manual differential will be performed. Immature Gran Absolute 0.03 0.00 - 0.04 x10(3)/[facility] LAB[facility] Blood 03/25/2023 11:1 4 AM EDT 03/25/2023 11:23 AM EDT Narrative Resulting Agency Comment Spec In Lab Rosalee ANDRES HEMATOLOGY ORDERABL ES [facility] [address] * (ABNORMAL) Hemogram (03/25/2023 11:14 AM EDT) White Blood Cell 8.2 4.0 - 9.5 x10(3)/mc L [facility] Red Blood Cell 3.98(L) 4.00 - 5.21 x10(6)/mc L [facility] Hemoglobin 12.6 11.7 - 15.5 g/dL [facility] Hematocrit 37.3 35.7 - 45.8 % [facility] Mean Cell Volume 93.7 82.6 - 94.4 fL [facility] Mean Cell Hemoglobin 31.7 27.1 - 32.0 pg [facility] Mean Cell Hemoglobin Concentration 33.8 31.7 - 35.0 g/dL [facility] Platelet 357 145 - 357 x10(3)/mc L [facility] RDW Standard Deviation 46.3(H) 37.0 - 46.0 fL [facility] RDW coefficient of variation 13.4 11.5 - 14.1 % [facility] Mean Platelet Volume 9.7 7.6 - 12.9 fL [facility] NRBC% auto 0.0 % [facility] NRBC Absolute 0.000 0.000 - 0.000 x10(3)/mc L [facility] Blood 03/25/2023 11:1 4 AM EDT 03/25/2023 11:23 AM EDT Narrative Resulting Agency Comment Spec In Lab Rosalee ANDRES HEMATOLOGY ORDERABL ES [facility] [address] * SIRENA Antibody Screen (03/25/2023 11:14 AM EDT) SIRENA Ab Screen Negative Negative [facility] Comment: This antinuclear antibody (SIRENA) screen is a qualitative test performed using a fluoroenzyme immunoassay on the Phadia 250 analyzer. This screen is designed to detect antibodies to U1RNP, SS-A/Ro, SS-B/La, centromere B, Scl-70, Fiorella-1, and Sm(Torre) proteins in serum samples. Antibodies to other nuclear antibodies will not be detected with this assay. This SIRENA screen is also performed in concert with a quantitative for IgG antibodies to dsDNA. Please note that as of 07/30/2022 that this testing is performed by the Special Chemistry Laboratory at [facility]. This change in testing location is associated with a change is testing method and reference intervals. Please review the results of this test in association with the posted reference intervals. dsDNA Ab <0.6 <=15.0 IU/mL [facility] Comment: <10 negative 10-15 equivocal >15 positive This dsDNA antibody result was generated using a fluoroenzyme immunoassay on the Phadia 250 analyzer. This quantitative test is designed to detect IgG antibodies directed against double stranded DNA in human serum. The presence of antibodies that recognize dsDNA is a highly specific marker for systemic lupus erythematosus. Please note that as of 07/30/2022 that this testing is performed by the Special Chemistry Laboratory at [facility]. This change in testing location is associated with a change is testing method and reference intervals. Please review the results of this test in association with the posted reference intervals. Blood 03/25/2023 11:1 4 AM EDT 03/25/2023 11:59 AM EDT Narrative Resulting Agency Comment Spec In Lab Christine Colby MD LAB SEND OUT ORDERAB LES Performing Organization Address [facility] Co de Phone Number [facility] [address] * (ABNORMAL) Sedimentation rate (03/25/2023 11:14 AM EDT) Sedimentation Rate Automated 45(H) 2 - 39 mm/hr [facility] Comment: Effective September 15, 2019 new capillary photometric technology has resulted in a change in reference ranges. It is recommended that each ESR result be reviewed with its own age appropriate reference range. Blood 03/25/2023 11:1 4 AM EDT 03/25/2023 11:23 AM EDT Narrative Resulting Agency Comment Spec In Lab Christine Colby MD HEMATOLOGY ORDERABLE S Performing Organization Address [facility] de Phone Number [facility] [address] * Rheumatoid factor, quant (03/25/2023 11:14 AM EDT) Rheumatoid Factor 10 <=14 IU/mL [facility] Blood 03/25/2023 11:1 4 AM EDT 03/25/2023 11:23 AM EDT Narrative Resulting Agency Comment Spec In Lab Christine Colby MD CHEMISTRY ORDERABLES Performing Organization Address [facility] Co de Phone Number [facility] [address] * Cyclic Citrullinated Peptide (03/25/2023 11:14 AM EDT) Cyclic Citrulline Peptide <8.0 <=16.9 unit/mL [facility] Blood 03/25/2023 11:1 4 AM EDT 03/25/2023 11:23 AM EDT Narrative Resulting Agency Comment Spec In Lab Christine Colby MD CHEMISTRY ORDERABLES Performing Organization Address [facility]/ZIP Co de Phone Number [facility] [address] * CRP, acute inflammation (03/25/2023 11:14 AM EDT) C-Reactive Protein <3.0 <=4.9 mg/L [facility] Blood 03/25/2023 11:1 4 AM EDT 03/25/2023 11:23 AM EDT Narrative Resulting Agency Comment Spec In Lab Christine Colby MD CHEMISTRY ORDERABLES [facility] [address] documented in this encounter Visit Diagnoses Diagnosis s/p left anatomic stemless TSA, 03/11/23 (Dr Colby) Synovitis Synovitis and tenosynovitis, unspecified s/p left anatomic stemless TSA, 03/11/23 (Dr Colby) documented in this encounter Care Teams Telecommunications Network Planner Relationship Specialty Start Date End Date Osbaldo Dewitt APRN [address] [place] [phone] PCP - General Family Medicine 12/31/22 documented as of this encounter
--- OUTSIDE RECORDS SUMMARY | 2024-09-30 00:23 | XMS_ITS | Encounter Summary ---
Author Organization [facility] [place] [address] Care Team Providers Care Customer Engineering Specialist Name Role Phone Osbaldo Dewitt APRN Primary Care Provider Encounter Details Date Type Department Care Team (Late st Contact Info) Description 01/15/2023 Ancillary Procedure Radiology Library at [facility] [place] [address] Christine Colby MD [facility] [place] [address] Social History Tobacco Use Types Packs/Day Years Used Date Smoking Tobacco: Never Assessed Sex and Gender Information Value Date Recorded Sex Assigned at Female 01/22/2023 7:48 PM EDT Gender Identity Female 01/22/2023 7:48 PM EDT Sexual Orientation Straight 12/26/2023 1: 48 PM EDT documented as of this encounter Plan of Treatment Not on file documented as of this encounter Procedures Procedure Name Priority Date/Time Associated Diagnosis Comments FILM LIBRARY STORAGE ONLY CT SHOULDER Routine 01/15/2023 12:00 AM EDT documented in this encounter Results * Film Library- Storage Only CT Shoulder (01/15/2023 12:00 AM EDT) Narrative [facility] - 01/22/2023 6:30 PM EDT This exam is auto-finalizing. It's purpose is for storage only. Christine Colby MD [facility] FILM LIBRARY ORD ERABLES [place], [place] documented in this encounter Visit Diagnoses Not on filedocumented in this encounter Care Teams Customer Engineering Specialist Relationship Specialty Start Date End Date Osbaldo Dewitt APRN [address] [place] [phone] PCP - General Family Medicine 12/31/22 documented as of this encounter
--- OUTSIDE RECORDS SUMMARY | 2024-09-30 00:23 | XMS_ITS | Encounter Summary ---
Author Organization [facility] [place] [address] Care Team Providers Care Dog Sitter Name Role Phone Osbaldo Dewitt APRN Primary Care Provider [phone] Encounter Details Date Type Department Care Team (Late st Contact Info) Description 01/17/2023 Ancillary Procedure Radiology Library at [facility] [place] [address] Christine Colby MD [facility] [place] [address] Social History Tobacco Use Types Packs/Day Years [...] Associated Diagnosis Comments FILM LIBRARY STORAGE ONLY MR SHOULDER Routine 01/17/2023 12:00 AM EDT documented in this encounter Results * Film Library- Storage Only MR Shoulder (01/17/2023 12:00 AM EDT) Narrative [facility] - 01/22/2023 6:31 PM EDT This exam is auto-finalizing. It's purpose is for storage only. Christine Colby MD [facility] FILM LIBRARY ORD ERABLES [place], [place] documented in this encounter Visit Diagnoses Not on filedocumented in this encounter Care Teams Dog Sitter Relationship Specialty Start Date End Date Osbaldo Dewitt APRN [address] [place] [phone] PCP - General Family Medicine 12/31/22 documented as of this encounter
--- OUTSIDE RECORDS SUMMARY | 2024-09-30 00:23 | XMS_ITS | Encounter Summary ---
Author Organization [facility] Address [facility] [place] [address] Care Team Providers Care Shellfish Meat Separator Operator Name Role Phone Osbaldo Dewitt APRN Primary Care Provider [phone] Encounter Details Date Type Department Care Team (Latest Contact Info) Description 03/19/2023 Travel Social History Tobacco Use Types Packs/Day [...] on filedocumented in this encounter Care Teams Shellfish Meat Separator Operator Relationship Specialty Start Date End Date Osbaldo Dewitt APRN [address] [place] [phone] PCP - General Family Medicine 12/31/22 documented as of this encounter
--- OUTSIDE RECORDS SUMMARY | 2024-09-30 00:23 | XMS_ITS | Encounter Summary ---
Author Organization [facility] [place] [address] Care Team Providers Care Delivery Person Name Role Phone Osbaldo Dewitt APRN Primary Care Provider [phone] Encounter Details Date Type Department Care Team (Latest Contact Info) Description 02/06/2023 Travel Social History Tobacco Use Types Packs/Day [...] on filedocumented in this encounter Care Teams Delivery Person Relationship Specialty Start Date End Date Osbaldo Dewitt APRN [address] [place] [phone] PCP - General Family Medicine 12/31/22 documented as of this encounter
--- OUTSIDE RECORDS SUMMARY | 2024-09-30 00:23 | XMS_ITS | Encounter Summary ---
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 * Consultation (Routine) - Closed Specialty Diagnoses / Procedures Referred By Chance le Referred To Contact Orthopaedics Diagnoses Right shoulder pain, unspecified chronicity Chronic pain of both shoulders Osbaldo Dewitt APRN [address] [place] [phone] [facility] [address] [place] [phone] Referral ID Status Reason Start Date Expiration Date V isits Requested Visits Authorized [id number] Closed Consult, Test & Treat PCP Updated and/or Approved 12/31/2022 12/31/2023 6 6 Encounter Details Date Type Department Care Team (Latest Contact Info) Description 02/07/2023 9:00 AM EDT Office [place] [address] [facility] [place] [address] Primary osteoarthritis of both shoulders Social History Tobacco Use Types Packs/Day Years Used Date Smoking Tobacco: Never Smokeless Tobacco: Never Tobacco Cessation:Counseling Given: Not Answered Sex and Gender Information Value Date Recorded [...] - Inhaled Oxygen Concentration - - Weight 110.7 kg (244 lb) 02/07/2023 9:02 AM EDT Height 175.3 cm (5' 9) 02/07/2023 9:02 AM EDT Body Mass Index 36.03 02/07/2023 9:02 AM EDT documented in this encounter Progress Notes * Christine Colby MD - 02/07/2023 9:00 AM EDT Shoulder Service [place], [place] New Patient Evaluation Date of Evaluation: 02/07/2023 Referring Provider: Osbaldo Dewitt History of Present Illness: Sandie Manriquez is a pleasant 62 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 She has been dealing with problems for years, but has been especially painful recently. She saw Dr. Patel in [place] and discussed shoulder arthroplasty. At this point, she is considering shoulder replacement on the left side. She had an injection3 weeks ago on the right side which was somewhat helpful. She is an active person. Change with walking, swimming, golf, but has trouble with all of these and especially with some of her basic activities of daily living. She has never had surgery on either shoulder. She has had x-rays of both shoulders, and left shoulder CT scan and MRI, both of which are available for my review today. She does have some neck pain, but no numbness or tingling in the hands. She has left tennis elbow as well. Social History Socioeconomic History ??? Marital status: Domestic Partner Spouse name: Not on file ??? Number of children: Not on file ??? Years of education: Not on file ??? Highest education level: Not on file Occupational History ??? Not on file Tobacco Use ??? Smoking status: Never ??? Smokeless tobacco: Never Vaping Use ??? Vaping Use: Never used Substance and Sexual Activity ??? Alcohol use: Not on file ??? Drug use: Not on file ??? Sexual activity: Not on file Other Topics Concern ??? Not on file Social History Narrative ??? Not on file Social Determinants of Health Financial Resource Strain: Not on file Food Insecurity: Not on file Transportation Needs: Not on file Physical Activity: Not on file Housing Stability: Not on file Sulfa (sulfonamide antibiotics) and Miconazole Current Outpatient Medications on File Prior to Visit Medication Sig Dispense Refill ??? venlafaxine XR (Effexor-XR) 37.5 mg ER 24 hr capsule ??? omeprazole (PriLOSEC) [address] capsule Take 20 mg by mouth nightly. ??? losartan (Cozaar) 100 mg tablet Take 100 mg by mouth daily. ??? hydroCHLOROthiazide (Hydrodiuril) 25 mg tablet ??? Glucosamine Sulfate 500 mg capsule Take 2 capsules by mouth Daily. ??? fluticasone propionate (Flonase) 50 mcg/actuation [place], Suspension 2 sprays by Nasal route Once daily as needed. ??? atenoloL (Tenormin) 25 mg tablet ??? cetirizine (ZyrTEC) 10 mg tablet Take 10 mg by mouth Daily. ??? cholecalciferol (Vitamin D3) 1,000 unit tablet Take 1,000 Units by mouth Daily. ??? doxycycline (Acticlate) 20 mg tablet ??? estradioL (ESTRACE) 0.01 % (0.1 mg/gram) Cream Place 0.5 g vaginally twice a week. ??? [DISCONTINUED] CIS Free Text Med - Multiple Vitamin ??? [DISCONTINUED] LOSARTAN/HYDROCHLOROTHIAZIDE (HYZAAR ORAL) ??? [DISCONTINUED] TETRACYCLINE HCL (TETRACYCLINE ORAL) No current facility-administered medications on file prior to visit. There is no problem list on file for this patient. Physical Examination Alert and oriented, in no apparent distress. Neck: Mild neck pain RIGHT SHOULDER: Range of Motion: Active ROM: 150 degrees forward elevation, 40 degrees external rotation at the side, and internal rotation of L2. Acromioclavicular Joint: nontender to palpation, with no pain at the AC joint with cross-body adduction. Rotator Cuff: 5/5 abduction in the empty can position, 5/5 in external rotation at the side, and 5/5 in internal rotation at the side. No lag signs are present. Impingement: Not examined. Stability: No anterior or posterior instability, negative sulcus.. Long Head of Biceps Tendon: Negative biceps provocative signs (O'joanna's, Speed's, Yergason's tests) Scapula: No scapular dyskinesia, medial scapular border tenderness, coracoid tenderness, or ptosis. Skin: No prior incisions. No obvious signs of infection. Neurological/Vascular: Motor intact radial, median, ulnar, axillary, and musculocutaneous nerves. Sensory intact radial, median, ulnar, axillary, and lateral antebrachial cutaneous nerves. LEFT SHOULDER: Range of Motion: Active ROM: 130 degrees forward elevation, 20 degrees external rotation at the side, and internal rotation of back pocket. Acromioclavicular Joint: nontender to palpation, with no pain at the AC joint with cross-body adduction. Rotator Cuff: 5/5 abduction in the empty can position, 5/5 in external rotation at the side, and 5/5 in internal rotation at the side. No lag signs are present. Impingement: Insufficient passive range of motion to assess for impingement. Stability: No anterior or posterior instability, negative sulcus.. Long Head of Biceps Tendon: Negative biceps provocative signs (O'joanna's, Speed's, Yergason's tests) Scapula: No scapular dyskinesia, medial scapular border tenderness, coracoid tenderness, or ptosis. Skin: No prior incisions. No obvious signs of infection. Neurological/Vascular: Motor intact radial, median, ulnar, axillary, and musculocutaneous nerves. Sensory intact radial, median, ulnar, axillary, and lateral antebrachial cutaneous nerves. Imaging: New xrays were not obtained today. I did review prior xrays. X-rays show severe osteoarthritis with biconcave B2 glenoid on the left and significant arthritis with minimal maintained joint space on the right. CT scan on the left side shows a fairly significant B2 deformity with posterior subluxation. MRI show partial-thickness rotator cuff tearing, but no full-thickness tear and arthritic changes. Assessment: Bilateral osteoarthritis. The left is radiographically worse with a B2 deformity on glenoid. We discussed both operative and nonoperative options. Depending on intraoperative findings, this could consist of stemless anatomic TSA if bone quality is adequate. It could also consist of reverse TSA or hemiarthroplasty depending on rotator cuff quality, glenoid bone stock, and other factors. I would need to plan the surgery out on pre-op planning software to determined the optimal implantfor her. She is going to think about her options and will call to let us know if she wants to proceed with TSA here. Christine Colby M.D., M.S. Professor of Orthopaedic Surgery [facility] [employer] at [facility] Department [place] [address] This note was created with [email or web address] voice recognition software. Please excuse any typos. documented in this encounter Plan of Treatment Not on file documented as of this encounter Visit Diagnoses Diagnosis Primary osteoarthritis of both shoulders documented in this encounter Care Teams Tree Farmer Relationship Specialty Start Date End Date Osbaldo Dewitt APRN [address] [place] [phone] PCP - General Family Medicine 12/31/22 documented as of this encounter
--- OUTSIDE RECORDS SUMMARY | 2024-09-30 00:23 | XMS_ITS | Encounter Summary ---
[facility] Organization [facility] [place] [address] Care Team Providers Care Supervisor [facility] Name Role Phone Osbaldo Dewitt Yaron PAGE Primary Care Provider [phone] Reason for Visit * Auth/Cert (Routine) Specialty Diagnoses / Procedures Referred By Chance t Referred To Contact Diagnoses shoulder arthritis Procedures PRO ARTHROPLASTY GLENOHUMERAL JOINT TOTAL SHOULDER PRO REPAIR BICEPS LONG TENDON TOTAL SHOULDER ARTHROPLASTY (WRVU 22.13) MODIFIER BEACH CHAIR SCHLEIN TENODESIS,BICEPS TENDON (PROXIMAL) (WRVU 10.17) Airam Colby MD [facility] [place] [address] [facility] Referral ID Status Reason Start Date Expiration Date Visits Re quested Visits Authorized [id number] 1 1 Encounter Details Date Type Department Care Team (Late st Contact Info) Description 03/11/2023 7:30 AM EDT - 03/11/2023 10:40 AM EDT [place] [id number] Airam Colby MD [facility] [place] [address] TOTAL SHOULDER ARTHROPLASTY (WRVU 22.13) Social History [...] Sign Reading Time Taken Comments Blood Pressure 126/72 03/11/2023 10:00 AM EDT Pulse 68 03/11/2023 7:15 AM EDT Temperature 36.3 ??C (97.3 ??F) 03/11/2023 9:59 AM ED T Respiratory Rate 15 03/11/2023 10:3 0 AM EDT Oxygen Saturation 99% 03/11/2023 10: 00 AM EDT Inhaled Oxygen Concentration - - Weight 110.5 kg (243 lb 9.6 oz) 03/11/2023 6:39 AM EDT Height 174 cm (5' 8.5) 03/11/2023 6:39 AM EDT Body Mass Index 36.5 03/11/2023 6:39 AM EDT documented in this encounter Discharge Instructions * Patient Instructions* Joan Sow PA - 03/11/2023 6:45 AM EDT Orthopaedic Surgery Discharge Instructions for Total Shoulder Arthroplasty Activity: 1. Wear your shoulder immobilizer at all times, except when doing range of motion exercises. You may work on range of motion of your shoulder as instructed by your physical therapist. No external rotation past neutral (do not move/turn your arm out to your side). No extension past neutral (do not move your arm behind your back). You may move your left elbow and wrist in front of your body to maintain range of motion, and use that hand at waist level for activities of daily living. 2. You are non-weight bearing on your Left upper extremity. Anticoagulation: Aspirin - You are being discharged on enteric-coated Aspirin 81mg by mouth twice aday. Continue this for 30 days. After your last dose stop the Aspirin, unless you are told otherwise by your Orthopedic surgeon. Take this medication with food or large amounts (240 mL) of water or milk to minimize GI irritation. Diet: Resume usual but increase your intake [...] bowel movement. You can also take an lrii-vit-yaldetp medication, Miralax if needed tocombat constipation. 2. If you need a renewal on your narcotic pain medication, you need to give the Orthopedic clinic enough time to process your request. This can take up to three days, so plan accordingly. 3. Continue acetaminophen (Tylenol) 1,000mg every 8 hours around the clock until 03/21/23 - this canbe effective in controlling pain along with your other medications. After that you can take Tylenolas needed per package insert. Do not take more than 3,000mg of acetaminophen in a 24 hour period. 4. You have been discharged on a short acting narcotic, Oxycodone (10 mg tablets as 5 mg tablets are in a nationally short supply). You will be on this medication for a limited period of time only. Taper off this medication as your pain improves. 5. Zofran has also been prescribed for nausea Shower: Sponge bathe only. DO NOT submerge the dressing/incision. DO NOT get the area wet. Wound (Mepilex): 1. Sutures/liz: No external liz or sutures inplace. Sutures are internal and will be absorbed over time. 2. Remove your operative dressing 7 days from your surgery (03/18). When it is removed you can leavethe incision open to air or cover it with a light dressing. 3. If you have lots of drainage when you get home (and it is before 03/18), remove this operative dressing and replace it with dry sterile gauze. Continue with daily dressing changes (and as needed) until the drainage stops, then remove the dressing and leave the incision open to air or lightly covered. Call your doctor ([phone]) if you develop: Fever greater than 100.5 Severe nausea or vomiting Increasing pain that is not controlled by pain medications Increasing redness, swelling, or drainage from incisions Change in sensation Misc: Remember that ICE and elevation are very important to decrease swelling and control pain. Youshould use the ICE for 20-30 minutes at a time. FOLLOW-UP APPOINTMENTS: You will have follow-up appointments at [facility] as indicated below in Future Appointment and Orders. Future Appointments Date Time Provider Department Center 03/25/2023 10:00 AM Rosalee Powers PA [facility] ORTH 3A [facility] If you have questions or concerns: Friday through Friday, 8 AM - 5 PM, please call Dr. Airam Colby MD's office at . If it is after 5 PM or on the weekend, please call and ask to speak with the Orthopedic resident on-call. documented in this encounter Medications at Time of Discharge Medication Sig Dispensed Refills Start Date End Date puwtalz-nmld-okxdc-oreg -capryl 100 mg-150 mg- 50 mg-150 mg Capsule Take by mouth. Just tumeric venlafaxine XR (Effexor-XR) 37.5 mg ER 24 hr capsule Take 37.5 mg by mouth daily. 02/03/2023 omeprazole (PriLOSEC) [address] capsule Take 20 mg by mouth nightly. 01/31/2023 hydroCHLOROthiazide (Hydrodiuril) 25 mg tablet Take 25 mg by mouth daily. 02/03/2023 fluticasone propionate (Flonase) 50 mcg/actuation [place], Suspension 2 sprays by Nasal route Once [...] 0.5 g vaginally. Twice weekly prn 12/07/2020 acetaminophen (Tylenol) 500 mg capsule Take 2 capsules by mouth every 8 hours for 10 days. 0 03/11/2023 03/21/2023 aspirin EC 81 mg EC (DR) tablet Take 1 tablet by mouth 2 times daily for 30 days. 0 03/11/2023 04/10/2023 polyethylene glycoL (Miralax) 17 gram/dose Powder Take 17 g by mouth as needed (Once daily as needed.) for up to 20 days. 03/11/2023 03/31/2023 ondansetron (Zofran) 4 mg tablet Take 1 tablet by mouth every 8 hours as needed for Nausea. 20 tablet 03/11/2023 05/06/2023 senna-docusate (sennosides-docusate sodium) 8.6-50 mg Tablet Take 1 tablet by mouth daily as needed for Constipation. 0 03/11/2023 05/06/2023 oxyCODONE (Roxicodone) 10 mg tablet Take 0.5 tablets by mouth every 4 hours. 15 tablet 03/11/2023 03/25/2023 losartan (Cozaar) 100 mg tablet Take 100 mg by mouth daily. 01/19/2023 12/08/2023 documented as of this encounter H&P Notes * Airam Colby MD - 03/11/2023 6:41 AM EDT ORTHOPEDIC PRE-OPERATIVE HISTORY AND PHYSICAL for ADMISSION, OBSERVATION OR PROCEDURE Date of : 1960 Age: 62 y.o. PCP: Osbaldo Dewitt APRN Presenting Diagnosis/Chief Complaint: LEFT shoulder pain History of Present Illness: Sandie Manriquez is a 62 y.o. female who presents for pre-operative examination. Please see Dr. Colby's note for full details of the patient's specific problem. Patient denies any changes since lastseen in clinic. Denies fevers, chills, headache, dizziness, chest pain, or shortness of breath. Review of Systems: complete 10 system ROS performed with pertinent findings below. Pertinent items are noted in HPI. PMHx: There is no problem list on file for this patient. History reviewed. No pertinent past medical history. History reviewed. No pertinent surgical history. Home Medications: Medications Prior to Admission Medication Sig Dispense Refill Last Dose wwdovsi-wrtk-hclyt-oreg-capryl 100 mg-150 mg- 50 mg-150 mg Capsule Take by mouth. 03/09/2023 venlafaxine XR (Effexor-XR) 37.5 mg ER 24 hr capsule 03/11/2023 at 0430 omeprazole (PriLOSEC) [address] capsule Take 20 mg by mouth nightly. 03/09/2023 losartan (Cozaar) 100 mg tablet Take 100 mg by mouth daily. 03/10/2023 hydroCHLOROthiazide (Hydrodiuril) 25 mg tablet 03/10/2023 at 0430 fluticasone propionate (Flonase) 50 mcg/actuation [place], Suspension 2 sprays by Nasal route Once daily as needed. 03/10/2023 at 0430 atenoloL (Tenormin) 25 mg tablet 03/11/2023 at 0430 cetirizine (ZyrTEC) 10 mg tablet Take 10 mg by mouth Daily. 03/09/2023 cholecalciferol (Vitamin D3) 1,000 unit tablet Take 1,000 Units by mouth Daily. 03/10/2023 doxycycline (Acticlate) 20 mg tablet 03/11/2023 at 0430 estradioL (ESTRACE) 0.01 % (0.1 mg/gram) Cream Place 0.5 g vaginally twice a week. Unknown Allergies: Allergies Allergen Reactions Sulfa (Sulfonamide Antibiotics) Miconazole CIS - Rash Family History: Non contributory History reviewed. No pertinent family history. Social History: Social History Tobacco Use Smoking status: Former Types: Cigarettes Smokeless tobacco: Never Vaping Use Vaping Use: Never used Substance Use Topics Alcohol use: Yes Alcohol/week: 14.0 standard drinks Types: 14 Glasses of wine per week Physical Exam: VITALS: Temperature Temp: 36.1 ??C (97 ??F) Heart Rate Heart Rate: 70 Blood Pressure BP: (!) 161/97 Respiratory Rate Resp: 20 SpO2 SpO2: 98 % No intake/output data recorded. General: alert, appears stated age, and cooperative Pulmonary: Normal, equal, clear breath sounds bilaterally, and no crepitus Cardiovascular: Regular rate and rhythm, S1S2 present, or without murmur or extra heart sounds Assessment and Plan: 62 y.o. female with the above problem, plan to proceed to OR with Dr. Earnestine robertson total shoulder arthroplasty. Elijah Lugo MD Orthopaedic Surgery Pager: [phone] Attending addendum: The preceeding portion of this note was written by Dr. Lugo. I personally saw and evaluated the patient at the bedside and I agree with the assessment and plan documented above. Airam Colby M.D., M.S. Professor of Orthopaedic Surgery [facility] [employer] at [facility] Department of [place] [address] documented in this encounter Miscellaneous Notes * Op Note - Airam Colby MD - 03/11/2023 7:54 AM EDT [facility] Operative Note Patient Name: Sandie Manriquez : [id number] MR#: [id number] Case Date: 03/11/2023 Surgeon: Surgeon(s) and Role: * Airam Colby MD - Primary * Elijah Lugo MD - Resident - Assisting * Joan Sow PA - Physician Freight Traffic Consultant Preoperative diagnosis: shoulder arthritis Postoperative diagnosis: shoulder arthritis Procedure(s) (LRB): TOTAL SHOULDER ARTHROPLASTY (WRVU 22.13) (Left) MODIFIER BEACH CHAIR SCHLEIN (N/A) TENODESIS,BICEPS TENDON (PROXIMAL) (WRVU 10.17) (Left) MODIFIER SIDUS SHOULDER CHANDLER BIOMET (N/A) Anesthesia: General Estimated Blood Loss: 150 mL Specimens removed during surgery: Order Name Source Comment Collection Info Order Time SPECIMEN TO PATHOLOGY To rule out inflammatory arthritis shoulder arthritis synovium excision No 03/11/2023 8:24 AM Time specimen removed from patient: 8:23 AM Number of tissue samples (in container) 1 Biospecimen to store? No Drains: * No LDAs found * Surgical [...] details pertinent to this patient.) HPI/Surgical Indications: 62-year-old female with end-stage osteoarthritis and pain not responsive to conservative treatments. After discussion of options, she elected to proceed with total shoulder replacement. She understood the risks of surgery and signed her consent. All questions were answered. Procedure Description: Anesthesia: General and Regional Complications: None Apparent Implants Used: Chandler Sidus TSA System with Chandler Loyal Glenoid Upper Jay: medium Head: 42x15 Glenoid: Size 4 with 4 peg configuration and center TM post Pre-operative Evaluation: The patient was identified in the preoperative holding area. After confirming that the left shoulder was the correct site of surgery with both the patient and the informed consent, a green kobuk wasplaced on the operative shoulder. The plan was [...] catheter was placed by the nursing staff understerile technique. A time-out was called and all present agreed on the correct patient, correct site of surgery, and correct procedure. Antibiotics were administered prior to incision. Examination under anesthesia: The shoulder was examined under anesthesia. Range of motion was 150 passive forward elevation, 30 passive external rotation at the side. Instability [...] and these were all removed with rongeurs/osteotomes. The initial pin was placed in anatomic version based off the anatomicneck anteriorly and the bare area posteriorly. The inclination of the cut block was then set with asecond pin and two additional pins were placed [...] was found to be a Walch type B2. The degree of biconcavity was relatively minor, however, with only a small superior portion of the paleoglenoid remaining. I elected to use a non-augment implant with a high- side ream technique. The center of the glenoid was identified and the appropriate version was identified by palpating the anterior neck and the center pin was advanced. The glenoid was then sized and reamed in normal version with a size 4 with 4 peg configuration reamer which was the most appropriate size. The center peg hole was drilled first, then the peripheral peg guide was inserted. The superior central peg and inferior two pegs were thendrilled. The guide was then removed. The glenoid was trialed and found to fit snugly without any tahmina dence of rocking. All the holes were inspected and found not to perforate into the medial glenoid vault cortical bone. The glenoid was then pulsatile lavaged and thrombin was placed in each peripheral peg hole to achieve [...] trialed various head sizes and decided upon 42x15. There was approximately 50% anterior-posterior laxity on [...] Prevention Bundle Used? N/A Attestation: Case Date: 03/11/2023 I was present and I participated during the entire procedure (does not need to include opening and closing). AIRAM COLBY MD 03/11/2023 documented in this encounter Plan of Treatment Not on file documented as of this encounter Procedures Procedure Name Priority Date/Time Associated Diagnosis Comments XR SHOULDER LEFT Routine 03/11/2023 10:2 4 AM EDT SURGICAL PATHOLOGY REPORT Routine 03/11/2023 8:24 AM EDT SPECIMEN TO PATHOLOGY Routine 03/11/2023 8:24 AM EDT MODIFIER SIDUS SHOULDER CHANDLER BIOMET Yes 03/11/2023 7:22 AM EDT shoulder arthritis Repair Biceps Long Tendon (32466) Yes 03/11/2023 7:22 AM EDT shoulder arthritis MODIFIER BEACH CHAIR SCHLEIN Yes 03/11/2023 7:22 AM EDT shoulder arthritis Arthroplasty, Glenohumeral Joint Total Shoulder ([id number]) Yes 03/11/2023 7:22 AM EDT shoulder arthritis TOTAL SHOULDER ARTHROPLASTY Routine 03/11/2023 6:17 AM EDT TENODESIS,BICEPS TENDON (PROXIMAL) Routine 03/11/2023 6:17 AM EDT IMPLANTABLE DEVICES SCAN 03/11/2023 12:00 AM EDT documented in this encounter Results * XR Shoulder Left (Generic) (03/11/2023 10:24 AM EDT) Anatomical Region Laterality Modality Shoulder Left Digital Radiogra phy Impressions 03/11/2023 2:30 PM EDT Expected immediate postoperative appearance following left total shoulder arthroplasty. I have personally reviewed the image(s) and the resident's interpretation and agree with the findings, Betty Abrams MD at 03/11/2023 2:30 PM Thank you for letting us participate in the care of this patient. ??If you are a health care provider and have any questions regarding this report, please contact the number below. ??For patients who have questions please contact the health regular senior care provider that requested your imaging first. ? Electronically signed by: Betty Abrams MD, [facility] ([phone]), at 03/11/2023 2:30 PM Narrative 03/11/2023 2:30 PM EDT EXAMINATION: XR SHOULDER LEFT (GENERIC) CLINICAL HISTORY: s/p left anatomic TSA TECHNIQUE: 4 views LEFT shoulder COMPARISON: Prior radiographs, CT and MRI FINDINGS: Status post left total shoulder arthroplasty. Hardware is intact and well aligned. Expected postoperative soft tissue gas. Unchanged 18 mm intra-articular body in the axillary recess. The visualized left lung is clear. Procedure Note Betty Abrams MD - 03/11/2023 EXAMINATION: XR SHOULDER LEFT (GENERIC) CLINICAL HISTORY: s/p left anatomic TSA TECHNIQUE: 4 views LEFT shoulder COMPARISON: Prior radiographs, CT and MRI FINDINGS: Status post left total shoulder arthroplasty. Hardware is intact andwell aligned. Expected postoperative soft tissue gas. Unchanged 18 mmintra-articular body in the axillary recess. The visualized left lung is clear. IMPRESSION Expected immediate postoperative appearance following left totalshoulder arthroplasty. I have personally reviewed the image(s) and the resident's interpretationand agree with the findings, Betty Abrams MD at 03/11/2023 2:30 PM Thank you for letting us participate in the care of this patient. If youare a health care provider and have any questions regarding this report,please contact the number below. For patients who have questions please contactthe health regular senior care provider that requested your imaging first. Electronically signed by: Betty Abrams MD, [facility]([phone]), at 03/11/2023 2:30 PM Airam Colby MD IMG DX ORDERABLES * Surgical Pathology Report (03/11/2023 8:24 AM EDT) Final Diagnosis [id number] ? Location: [facility]; [facility]; A The signing pathologist has (i) examined the relevant preparation(s) for the specimen(s) and (ii) rendered or confirmed the diagnosis(es). . 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 of Pathology, [place] [address] Cross Roller: Darion Andrew MD, FCAP, ??CLIA Certificate: [id number] DISCUSSION While non-specific, the presence of patchy lymphoplasmacytic inflammation could raise diagnostic consideration of rheumatoid arthritis, in the appropriate clinical context. Correlation with clinical and serologic studies is suggested. SPECIMEN(S) SUBMITTED A - synovium, excision (1) CLINICAL INFORMATION Shoulder arthritis SPECIMEN PROCESSING A - Labeled/Fixative: Synovium, fresh. Quantity/Size: Single, 3.0 x 2.1 x 0.6 cm. Tissue Description: Soft red papillary tissue. Sections/Processing: Cardiac Catheterization Technologist sections in 1 cassette labeled A1. ??aaw 03/13/2023 10:20 AM EDT [facility] SYNOVIUM BIOPSY SPECIMEN / Unknown 03/11/2023 8:24 AM EDT 03/11/2023 8:24 AM EDT Airam Colby MD PATHOLOGY/CYTOLOGY O NATHANIEL Performing Organization Address [facility]/ZIP Co de Phone Number [facility] [address] [place] [address] * Specimen to Pathology (03/11/2023 8:24 AM EDT) AP Specimen 03/11/2023 8:24 AM EDT 03/11/2023 8:24 AM EDT Narrative [facility] - 03/11/2023 8:24 AM EDT Specimen requisition ordered. ??Separate Pathology report to follow Airam Colby MD PATHOLOGY/CYTOLOGY O NATHANIEL Performing Organization Address [facility]/State/ZIP Co de Phone Number [facility] [place] [address] * SCAN DOC: IMPLANTABLE DEVICES (03/11/2023 12:00 AM EDT) Narrative 03/11/2023 12:00 AM EDT Ordered by an unspecified provider. Scanning Provider MEDIA MGR SCAN EXT O RDR/RSLT documented in this encounter Visit Diagnoses Not on filedocumented in this encounter Administered Medications Inactive Administered Medications - up to 3 most recent administrations Medication Order MAR Action Action Date Dose Rate Site fentaNYL (PF) (50 mcg/mL) injection 50 mcg 50 mcg, Intravenous, EVERY 5 MIN PRN, Starting on Fri03/11/23 at 0625, Until Fri03/11/23 at 1213, Pain, or prior to injection of local anesthetic., Hold for respiratory rate less than 8 breaths per minute. (maximum dose 200 mcg), Day of Surgery (Day of Procedure), Routine Given 03/11/2023 7:16 AM EDT 50 mcg gelatin adsorbable 12-7 mm sponge PRN, Starting on Fri03/11/23 at 0818, Until Fri03/11/23 at 1414, Intra-Operative (Intra-Procedure) Given 03/11/2023 8:18 AM EDT 1 each 19- Surgical Site lactated ringers infusion 1,000 mL, at 100 mL/hr, Intravenous, CONTINUOUS, Starting on Fri03/11/23 at 0645, Until Fri03/11/23 at 1213, Day of Surgery (Day of Procedure) New Bag 03/11/2023 7:15 AM EDT 1,000 mLs 100 mL/hr midazolam (pf) (Versed) (1 mg/mL) injection 1 mg 1 mg, Intravenous, EVERY 5 MIN PRN, Starting on Fri03/11/23 at 0625, Until Fri03/11/23 at 1213, Other, sedation or prior to injection of local anesthetic, Hold for delirium/agitation. (Maximum dose 5 mg)., Day of Surgery (Day of Procedure), Routine Given 03/11/2023 7:16 AM EDT 2 mg scopolamine (Transderm-Scop) 1 mg over 3 days patch 1 patch 1 patch, Transdermal, Administer over 72 Hours, EVERY 72 HOURS, First dose on Fri03/11/23 at 0730, Until Discontinued, Routine Patch Applied 03/11/2023 7:30 AM EDT 1 patch 02- Ear Behind (Right) scopolamine (Transderm-Scop) 1 mg patch Patch Verification Transdermal, 2 TIMES DAILY, First dose on Fri03/11/23 at 1915, Until Discontinued, Verify scopolamine 1 mg patch. thrombin (bovine) (Thrombin-Jmi) solution PRN, Starting on Fri03/11/23 at 0818, Until Fri03/11/23 at 1414, Intra-Operative (Intra-Procedure) Given 03/11/2023 8:18 AM EDT 5,000 Units 19- Surgical Site documented in this encounter Active and Recently Administered Medications Times are shown in EDT. Scheduled Medication Order 03/09/2023 03/10/2023 03/11/2023 ceFAZolin (Ancef) 2 g vial attach to sodium chloride 0.9% 100 mL Mini-Bag Plus (COMPLETED) 2 g, Intravenous, EVERY 4 HOURS, 1 dose, First dose on Fri03/11/23 at 0645, Administer over 30 Minutes, Redose after 4 hours., Day of Surgery (Day of Procedure), Indication for (Active or Suspected): Prophylaxis 0742 (New Bag - Prov ider: Jay Lynn CRNA) scopolamine (Transderm-Scop) 1 mg over 3 days patch 1 patch(Linked Group 1) 1 patch, Transdermal, Administer over 72 Hours, EVERY 72 HOURS, First dose on Fri03/11/23 at 0730, Until Discontinued, Routine 0730 (Patch Applied - Provider: Kevin Mosher RN)1158 (Due: Patch Removed - Provider: Automatic Discharge Provider - Comment: Time automatically adjusted from order being discontinued) scopolamine (Transderm-Scop) 1 mg patch Patch Verification(Linked Group 1) Transdermal, 2 TIMES DAILY, First dose on Fri03/11/23 at 1915, Until Discontinued, Verify scopolamine 1 mg patch. tranexamic acid (Cyklokapron) (100 mg/mL) infusion 1,661 mg (COMPLETED) 1,661 mg (rounded from 1,660.5 mg = 15 mg/kg/dose ? 110.7 kg), Intravenous, ONCE, 1 dose, On Fri03/11/23 at 0645, Administer no faster than 100 mg/min., Day of Surgery (Day of Procedure), STAT 0742 (Given - Provid er: Jay Lynn CRNA) Continuous Medication Order 03/09/2023 03/10/2023 03/11/2023 lactated ringers infusion (CANCELED) 1,000 mL, at 100 mL/hr, Intravenous, CONTINUOUS, Starting on Fri03/11/23 at 0645, Until Fri03/11/23 at 1213, Day of Surgery (Day of Procedure) 0715 (New Bag - Prov ider: Kevin Mosher RN) PRN Medication Order 03/09/2023 03/10/2023 03/11/2023 fentaNYL (PF) (50 mcg/mL) injection 50 mcg (CANCELED) 50 mcg, Intravenous, EVERY 5 MIN PRN, Starting on 03/11/23 at 0625, Until 03/11/23 at 1213, Pain, or prior to injection of local anesthetic., Hold for respiratory rate less than 8 breaths per minute. (maximum dose 200 mcg), Day of Surgery (Day of Procedure), Routine 0716 (Given - Provid er: Kevin Mosher RN) gelatin adsorbable 12-7 mm sponge (CANCELED) PRN, Starting on e 03/11/23 at 0818, Until e 03/11/23 at 1414, Intra-Operative (Intra-Procedure) 0818 (Given - Provid er: Airam Colby MD - Comment: mixed with thrombin used prn) midazolam (pf) (Versed) (1 mg/mL) injection 1 mg (CANCELED) 1 mg, Intravenous, EVERY 5 MIN PRN, Starting on 03/11/23 at 0625, Until 03/11/23 at 1213, Other, sedation or prior to injection of local anesthetic, Hold for delirium/agitation. (Maximum dose 5 mg)., Day of Surgery (Day of Procedure), Routine 0716 (Given - Provid er: Kevin Mosher RN) thrombin (bovine) (Thrombin-Jmi) solution (CANCELED) PRN, Starting on Fri03/11/23 at 0818, Until e 03/11/23 at 1414, Intra-Operative (Intra-Procedure) 0818 (Given - Provid er: Airam Colby MD - Comment: mixed with gelfoam used prn) Linked Groups Order Group 1: scopolamine (Transderm-Scop) 1 mg over 3 days patch 1 patchJump to med 1 patch, Transdermal, Administer over 72 Hours, EVERY 72 HOURS, First dose on Fri03/11/23 at 0730, Until Discontinued, Routine And scopolamine (Transderm-Scop) 1 mg patch Patch VerificationJump to med Transdermal, 2 TIMES DAILY, First dose on Fri03/11/23 at 1915, Until Discontinued, Verify scopolamine 1 mg patch. documented in this encounter Care Teams Supervisor Hide House Relationship Specialty Start Date End Date Osbaldo Dewitt APRN [address] [place] [phone] PCP - General Family Medicine 12/31/22 documented as of this encounter
--- OUTSIDE RECORDS SUMMARY | 2024-09-30 00:23 | XMS_ITS | Encounter Summary ---
Author Organization [facility] Yasmany [place] [address] Care Team Providers Care Rebrander Name Role Phone Kiara Pittman MD Primary Care Provider [phone] Encounter Details Date Type Department Care Team (Late st Contact Info) Description 12/24/2022 Ancillary Procedure Radiology Library [facility] [place] [address] Osbaldo Dewitt, STAINED GLASS GLAZIER [address] [place] [address] Social History Tobacco Use Types [...] Associated Diagnosis Comments FILM LIBRARY STORAGE ONLY DX SHOULDER Routine 12/24/2022 12:00 AM EDT documented in this encounter Results * Film Library- Storage Only DX Shoulder (12/24/2022 12:00 AM EDT) Narrative [facility] - 01/01/2023 2:39 PM EDT This exam is auto-finalizing. It's purpose is for storage only. Osbaldo Dewitt APRN IM FILM LIBRARY ORD ERABLES [place], [place] documented in this encounter Visit Diagnoses Not on filedocumented in this encounter Care Teams Rebrander Relationship Specialty Start Date End Date Kiara Pittman MD PCP - General 08/28/10 12/30/22 documented as of this encounter
--- OUTSIDE RECORDS SUMMARY | 2024-09-30 00:23 | XMS_ITS | Encounter Summary ---
Author Organization [facility] [place] [address] Care Team Providers Care Beef Killer Name Role Phone Osbaldo Dewitt Yaron PAGE Primary Care Provider [phone] Reason for Visit * Auth/Cert (Routine) Specialty Diagnoses / Procedures Referred By Chance t Referred To Contact Diagnoses shoulder arthritis Procedures PRO ARTHROPLASTY GLENOHUMERAL JOINT TOTAL SHOULDER PRO REPAIR BICEPS LONG TENDON TOTAL SHOULDER ARTHROPLASTY (WRVU 22.13) MODIFIER BEACH CHAIR SCHLEIN TENODESIS,BICEPS TENDON (PROXIMAL) (WRVU 10.17) Airam Colby MD [facility] ORTHOPAEDIC [place] [address] [facility] Referral ID Status Reason Start Date Expiration Date Visits Re quested Visits Authorized [id number] 1 1 Encounter Details Date Type Department Care Team (Latest Contact Info) Description 03/11/2023 6:17 AM EDT - 03/11/2023 11:58 AM EDT Hospital En[place] [address] Airam Colby MD [facility] ORTHOPAEDIC [place] [address] Discharge Disposition: Home Social History Tobacco Use [...] Sign Reading Time Taken Comments Blood Pressure 121/69 03/11/2023 11:00 AM EDT Pulse 68 03/11/2023 7:15 AM EDT Temperature 36 ??C (96.8 ??F) 03/11/2023 11: 30 AM EDT Respiratory Rate 15 03/11/2023 11:0 0 AM EDT Oxygen Saturation 95% 03/11/2023 11: 00 AM EDT Inhaled Oxygen Concentration - [...] bowel movement. You can also take an dchh-vzz-toetvqn medication, Miralax if needed tocombat constipation. 2. [...] air or lightly covered. Call your doctor ([phone]) if you develop: Fever greater than 100.5 Severe nausea or vomiting Increasing pain that is not controlled by pain medications Increasing redness, swelling, or drainage from incisions Change in sensation Misc: Remember that ICE and elevation are very important to decrease swelling and control pain. Youshould use the ICE for 20-30 minutes at a time. FOLLOW-UP APPOINTMENTS: You will have follow-up appointments at [facility] as indicated below in Future Appointment and Orders. Future Appointments Date Time Provider Department Center 03/25/2023 10:00 AM Rosalee Powers PA [facility] ORTH 3A [facility] If you have questions or concerns: Friday through Friday, 8 AM - 5 PM, please call Dr. Airam Colby MD's office at . If it is after 5 PM or on the weekend, please call and ask to speak with the Orthopedic resident on-call. documented in this encounter Medications at Time of Discharge Medication Sig Dispensed Refills Start Date End Date bajiglk-tkbz-ksnsp-oreg -capryl 100 mg-150 mg- 50 mg-150 mg Capsule Take by mouth. Just tumeric venlafaxine XR (Effexor-XR) 37.5 mg ER 24 hr capsule Take 37.5 mg by mouth daily. 02/03/2023 omeprazole (PriLOSEC) [address] capsule Take 20 mg by mouth nightly. 01/31/2023 hydroCHLOROthiazide (Hydrodiuril) 25 mg tablet Take 25 mg by mouth daily. 02/03/2023 fluticasone propionate (Flonase) 50 mcg/actuation [place], Suspension 2 sprays by Nasal route Once [...] Admission Medication Sig Dispense Refill Last Dose hcmzwgn-czsa-qlhsi-oreg-capryl 100 mg-150 mg- 50 mg-150 mg Capsule Take by mouth. 03/09/2023 venlafaxine XR (Effexor-XR) 37.5 mg ER 24 hr capsule 03/11/2023 at 0430 omeprazole (PriLOSEC) [address] capsule Take 20 mg by mouth nightly. 03/09/2023 losartan (Cozaar) 100 mg tablet Take 100 mg by mouth daily. 03/10/2023 hydroCHLOROthiazide (Hydrodiuril) 25 mg tablet 03/10/2023 at 0430 fluticasone propionate (Flonase) 50 mcg/actuation [place], Suspension 2 sprays by Nasal route Once [...] plan to proceed to OR with Dr. Colby forlatanyaft total shoulder arthroplasty. Elijah Lugo MD Orthopaedic Surgery Pager: [phone] Attending addendum: The preceeding portion of this note was written by Dr. Lugo. I personally saw and evaluated the patient at the bedside and I agree with the assessment and plan documented above. Airam Colby M.D., M.S. Professor of Orthopaedic Surgery [facility] Department [place] [address] documented in this encounter Miscellaneous Notes * Op Note - Airam Colby MD - 03/11/2023 7:54 AM EDT [facility] Operative Note Patient Name: Sandie Manriquez : [id number] MR#: [id number] Case Date: 03/11/2023 Surgeon: Surgeon(s) and Role: * Airam Colby MD - Primary * Elijah Lugo MD - Resident - Assisting * Joan Sow PA - Physician House Principal Preoperative diagnosis: shoulder arthritis Postoperative diagnosis: shoulder [...] Used: Chandler Sidus TSA System with [place] Glenoid [place]: medium Head: 42x15 Glenoid: Size 4 with 4 peg configuration and center TM post Pre-operative Evaluation: The patient was identified in the preoperative holding area. After confirming that the left shoulder was the correct site of surgery with both the patient and the informed consent, a [place] wasplaced on the operative shoulder. The plan [...] EDT shoulder arthritis Repair Biceps Long Tendon (23619) Yes 03/11/2023 7:22 AM EDT shoulder arthritis MODIFIER BEACH CHAIR SCHLEIN Yes 03/11/2023 7:22 AM EDT shoulder arthritis Arthroplasty, Glenohumeral Joint Total Shoulder (77303) Yes 03/11/2023 7:22 AM EDT shoulder arthritis [...] who have questions please contact the health intensive care nurse that requested your imaging first. ? Electronically signed by: Betty Abrams MD, [facility] ([phone]), at 03/11/2023 2:30 PM Narrative 03/11/2023 2:30 [...] patients who have questions please contactthe health intensive care nurse that requested your imaging first. Electronically signed by: Betty Abrams MD, [facility]([phone]), at 03/11/2023 2:30 PM Airam Colby MD IMG DX ORDERABLES * Surgical Pathology Report (03/11/2023 8:24 AM EDT) Final Diagnosis [id number] ? Location: [facility]; [facility]; A The signing pathologist has (i) examined the relevant preparation(s) for the specimen(s) and (ii) rendered or confirmed the diagnosis(es). . ?Surgical Pathology DIAGNOSIS A - Soft tissue, synovium, excision: - Synovial hyperplasia with patchy lymphoplasmacytic inflammation (see discussion) Electronically signed by: ?Leia OSORIO, PhD, [facility]man Verified: ??03/13/2023 10:20 ??Dermatopathologist , Bone & Soft Tissue Pathologist Performed at: ??-[facility] Dept. of Pathology, [place] [address] Fast Food Sales Assistant: Darion Andrew MD, FCAP, ??CLIA Certificate: [id number] DISCUSSION While non-specific, the presence of patchy lymphoplasmacytic inflammation could raise diagnostic consideration of rheumatoid arthritis, in the appropriate clinical context. Correlation with clinical and serologic studies is suggested. SPECIMEN(S) SUBMITTED A - synovium, excision (1) CLINICAL INFORMATION Shoulder arthritis SPECIMEN PROCESSING A - Labeled/Fixative: Synovium, fresh. Quantity/Size: Single, 3.0 x 2.1 x 0.6 cm. Tissue Description: Soft red papillary tissue. Sections/Processing: Painting Manager sections in 1 cassette labeled A1. ??aaw 03/13/2023 10:20 AM EDT [facility] SYNOVIUM BIOPSY SPECIMEN / Unknown 03/11/2023 8:24 AM EDT 03/11/2023 8:24 AM EDT Airam Colby MD PATHOLOGY/CYTOLOGY O NATHANIEL Performing Organization Address [facility] Co de Phone Number [facility] [address] [place] [address] * Specimen to Pathology (03/11/2023 8:24 AM EDT) AP Specimen 03/11/2023 8:24 AM EDT 03/11/2023 8:24 AM EDT Narrative [facility] - 03/11/2023 8:24 AM EDT Specimen requisition ordered. ??Separate Pathology report to follow Airam Colby MD PATHOLOGY/CYTOLOGY O NATHANIEL Performing Organization Address [facility]/ZIP Co de Phone Number [facility] [place] [address] * SCAN DOC: IMPLANTABLE DEVICES (03/11/2023 12:00 AM EDT) Narrative 03/11/2023 12:00 AM EDT Ordered by an unspecified provider. Scanning Provider MEDIA MGR SCAN EXT O RDR/RSLT documented in this encounter Visit Diagnoses Diagnosis s/p left anatomic stemless TSA, 03/11/23 (Dr Colby) documented in this encounter Administered Medications Inactive [...] Given 03/11/2023 7:16 AM EDT 50 mcg lactated ringers infusion 1,000 mL, [...] 1 mg patch. documented in this encounter Active and Recently [...] 12-7 mm sponge (CANCELED) PRN, Starting on Fri03/11/23 at 0818, Until Fri03/11/23 at 1414, Intra-Operative (Intra-Procedure) 0818 (Given - [...] 0818, Until Fri03/11/23 at 1414, Intra-Operative (Intra-Procedure) 0818 (Given - [...] patch. documented in this encounter Care Teams Beef Killer Relationship Specialty Start Date End Date Osbaldo Dewitt APRN [address] [place] [phone] PCP - General Family Medicine 12/31/22 documented as of this encounter
--- OUTSIDE RECORDS SUMMARY | 2024-09-30 00:23 | XMS_ITS | Encounter Summary ---
Author Organization [facility] Address [facility] [place] [address] Care Team Providers Care Patcher Wood Welder Name Role Phone Osbaldo Dewitt CAMILO Primary Care Provider [phone] Reason for Visit * Reason Onset Date Comments Other 02/10/2023 Encounter Details Date Type Department Care Team (Late st Contact Info) Description 02/10/2023 [place] [address] Christine Colby MD [facility] [place] [address] Other Social History Tobacco Use Types Packs/Day Years Used Date Smoking Tobacco: Never Smokeless Tobacco: Never Sex and Gender Information Value Date Recorded Sex Assigned at Female 01/22/2023 7:48 PM EDT Gender Identity Female 01/22/2023 7:48 PM EDT Sexual Orientation Straight 12/26/2023 1: 48 PM EDT documented as of this encounter Miscellaneous Notes * Telephone Encounter - Jesusita Ray - 02/10/2023 8:43 AM EDTSummary: PATIENT WANTS TO PROCEED WITH SURGERY - HAS 1 QUESTION Name of person calling: Patient / Pat Have you had Surgery? No If so when? Patient would like to go ahead with surgery on Left Shoulder first Who was the Surgeon? To be Dr. Colby What is the question: Pat called in stating she would like to go ahead with Left TSA with Dr. Colby. Patient does have one question she would like to talk with Dr. Colby about. Patient states the question would be about Anatomic TSA vs other options of left shoulder surgery ways. Best number to reach the caller: [phone] documented in this encounter Plan of Treatment Not on file documented as of this encounter Visit Diagnoses Not on filedocumented in this encounter Care Teams Patcher Wood Welder Relationship Specialty Start Date End Date Osbaldo Dewitt APRN [address] [place] [address] [phone] PCP - General Family Medicine 12/31/22 documented as of this encounter
--- OUTSIDE RECORDS SUMMARY | 2024-09-30 00:23 | XMS_ITS | Encounter Summary ---
Author Organization [place] [id number] Care Team Providers Care Comfort Station Attendant Name Role Phone Osbaldo Dewitt APRN Primary Care Provider [phone] Reason for Referral * Consultation (Routine) - Closed Specialty Diagnoses / Procedures Referred By Chance le Referred To Contact Orthopaedics Diagnoses Right shoulder pain, unspecified chronicity Chronic pain of both shoulders Osbaldo Dewitt APRN [address] [place] [address] [facility] Orthopaedics [address] [place] [phone] Referral ID Status Reason Start Date Expiration Date V isits Requested Visits Authorized [id number] Closed Consult, Test & Treat PCP Updated and/or Approved 12/31/2022 12/31/2023 6 6 Encounter Details Date Type Department Care Team (Latest Contact Info) Description 12/31/2022 Transcribe Orders eDH Incoming Referrals [phone] Osbaldo Dewitt APRN [address] [place] [phone] Right shoulder pain, unspecified chronicity; Chronic pain of both shoulders Social History Tobacco Use Types Packs/Day Years Used Date Smoking Tobacco: Never Assessed Sex and Gender Information Value Date Recorded Sex Assigned at Female 01/22/2023 7:48 PM EDT Gender Identity Female 01/22/2023 7:48 PM EDT Sexual Orientation Straight 12/26/2023 1: 48 PM EDT documented as of this encounter Plan of Treatment Scheduled Referrals Name Type Priority Associated Diagnoses Orde r Schedule Referral to Orthopaedics Outpatient Referral Routine Right Shoulder Pain, Unspecified Chronicity Chronic Pain Of Both Shoulders Ordered: 12/31/2022 documented as of this encounter Visit Diagnoses Diagnosis Right shoulder pain, unspecified chronicity Chronic pain of both shoulders Pain in joint, shoulder region documented in this encounter Care Teams Comfort Station Attendant Relationship Specialty Start Date End Date Osbaldo Dewitt APRN [address] [place] [phone] PCP - General Family Medicine 12/31/22 documented as of this encounter
--- OUTSIDE RECORDS SUMMARY | 2024-09-30 00:23 | XMS_ITS | Encounter Summary ---
Author Organization [facility] [place] [address] Care Team Providers Care Resistance Machine Welder Setter Name Role Phone Osbaldo Dewitt APRN Primary Care Provider [phone] Encounter Details Date Type Department Care Team (Latest Contact Info) Description 02/07/2023 Travel Social History Tobacco Use Types Packs/Day [...] on filedocumented in this encounter Care Teams Resistance Machine Welder Setter Relationship Specialty Start Date End Date Osbaldo Dewitt APRN [address] [place] [phone] PCP - General Family Medicine 12/31/22 documented as of this encounter
== END 2024-09-30 00:34 ==
LOC: DI 00:15
PROVIDERS: PCP Nurse Practitioner Family; Visit Provider Nurse Practitioner Adult Health
DX: Z13.820 Encounter for screening for osteoporosis (principal)
CPT/HCPCS: 77063; 77067; 77080

== ENCOUNTER 2024-10-18 01:51 | Outpatient (CLI) | payer BC, SELFPAY ==
--- NOTE | 2024-10-18 06:30 | DI.NM_ITS ---
APPROVED REPORT Exam: Pharmacologic Patient Location: Out-Patient Room/Bed: Stress Nurse: Padmini Allen RN Ordering Provider:GUILLERMO SCHOFIELD, Contact Number: BMI: 37.09 Baseline Rhythm: Sinus Rhythm Indications: Afib Medical History Medical History: L knee arthritis, mild sleep apnea, depression, HTN, afib, obesity, HLD, menopausal syndrome, heart palpitations, anxiety Cardiac Medications: Albuterol sulfate, eliquis, atenolol, diltiazem, doxycycline, estradiol, omepraz ole, venlafaxine, flecainide Allergies: Ragweed pollen, sulfa, miconazole Cardiac Risk Factors: Family hx, HTN, HLD, former smoker, obesity Previous Cardiac Procedures: None Pretest Chest Pain Characteristics: None Exercise History: Indeterminate Physical Disabilities: L knee Lung Sounds: Clear to auscultation Heart Sounds: Regular Stress Test Details Test: Pharmacologic stress was paired with low level exercise. Reason for pharmacologic stress test: physical limitation. Nuclear Acquisition: Rest Tc-99m/Stress Tc-99m 1 day Rest Isotope: Tc-99m Sestamibi. Dose: 12.0 Date: 10/18/2024 Injection Time: 0830 Stress Isotope: Tc-99m Sestamibi. Dose: 36.0 Date: 10/18/2024 Injection Time: 1011 HR Resting HR Supine: 61 bpm Max Heart Rate (APMHR): 155 bpm Resting HR Standin bpm Target HR (85% APMHR): 132 bpm Max HR Achieved: 110 bpm % of APMHR: 71 Recovery HR: 71 bpm BP Resting BP Supine: 162/92 mmHg Resting BP Standin/98 mmHg Max BP: 178/92 mmHg Recovery BP: 160/90 mmHg ECG Resting ECG: Sinus Rhythm Stress ECG: Sinus Rhythm ST Change: Nondiagnostic low heart rate Arrhythmia: Rare PVC Recovery ECG: Sinus Rhythm Recovery ST Change: Nondiagnostic low heart rate Recovery Arrhythmia: Rare PAC, rare PVC Clinical Stress Symptoms: None Angina Score: None Rate Pressure Product: 60993 Stress ECG Conclusion 1. Resting electrocardiogram was normal 2. Patient underwent testing using pharmacologic stress with regadenoson and low-level exercise 3. Peak heart rate achieved was 71% of maximal predicted for age 4. The electrocardiographic portion of the test was nondiagnostic 5. See MPI report Stress Test Summary STAGE HR BP SpO2 Symptoms NOTES Supine 61 162/92 97% Standing 65 162/98 1 min post Lexiscan injection 95 172/102 97% 3 min post Lexiscan injection 81 178/92 97% 6 min post Lexiscan injection 71 160/90 96% MPI Conclusion Myocardial perfusion is normal. There is no ischemia or evidence of prior infarction Ejection fraction is 62% with normal wall motion
--- NOTE | 2024-10-18 07:30 | DI.US_ITS ---
APPROVED REPORT EXAM: Comprehensive 2D, Doppler, and color-flow Echocardiogram Patient Location: Out-Patient Distribution Operations Supervisor: Shaq Arrington RDCS (AE) Indications: AFIB Conclusion Borderline concentric left ventricular hypertrophy. Ejection fraction is 65%. Wall motion is normal Normal right ventricular size and function Both atria are mildly dilated There is no structural or hemodynamically significant valvular disease Wall motion Left Ventricle The left ventricle is normal size. The left ventricular systolic function is normal. The left ventric ular ejection fraction is within the normal range. Borderline concentric left ventricular hypertrophy . There is normal LV segmental wall motion. There is no ventricular septal defect visualized. LVEF is 65%. Right Ventricle Right ventricle is grossly normal in size. Right ventricular systolic function is grossly normal. Atria Left atrium is mildly dilated. Right atrium is mildly dilated. The interatrial septum is intact with no evidence for an atrial septal defect. Aortic Valve The aortic valve is normal in structure. Aortic valve is trileaflet. There is no aortic valvular sten osis. No aortic regurgitation is present. Mitral Valve The mitral valve is normal in structure. No evidence of mitral valve stenosis. Trace to mild mitral r egurgitation. Tricuspid Valve The tricuspid valve is normal in structure. There is no tricuspid valve stenosis. Trace tricuspid reg urgitation. Unable to assess PA pressure. Pulmonic Valve The pulmonary valve is normal in structure. There is no pulmonic valvular stenosis. There is no pulmo alexandra valvular regurgitation. Great Vessels The aortic root is normal in size. The ascending aorta is normal Aortic arch is normal in caliber. IV C is normal in size and collapses >50% with inspiration. Pericardium There is no pericardial effusion. 2D Dimensions IVSD d PLAX 0.98 cm F: 0.6-1.0 Ao Root d 2.70 cm F: 2.7 - 3.3 LVPW d PLAX 0.99 cm F: 0.6 - 1.0 Ao Asc Diam d 3.34 cm F: 2.3 - 3.1 LVID d PLAX 5.47 cm F: 3.8 - 5.2 LVDs 3.46 cm F: 2.2 - 3.5 LV EF Teichholz 66.0 % FS 36.71 % LV EDV (Teich) 145.5 mL LV ESV (Teich) 49.5 mL Stroke Vol Index (Teich) 44.24 M-Mode TAPSE 2.31 cm (M/F) >1.7 Auto EF LV EDV A4C 142.8 mL LV EDV A2C 144.6 mL LV EDV BP 144.1 mL LV ESV A4C 48.7 mL LV ESV A2C 46.8 mL LV ESV BP 47.6 mL LVEF(%) A4C 65.9 % LVEF(%) A2C 67.6 % LVEF(%) BP 67.0 % LV SV A4C 94.1 ml LV SV A2C 97.7 ml LV SV BP 96.5 ml LV CO A4C 5.8 L/min LV CO A2C 5.6 L/min LV CO BP 5.7 L/min HR A4C 62.05 BPM HR A2C 57.05 BPM LV EDV Index (BP) LA Volume LA Length A4C 5.1 cm LA Length A2C 6.1 cm LA Area A4C s 13.02 cm2 LA Area A2C s 23.52 cm2 LA Vol A4C A-L 28.38 mL LA Vol A2C A-L 77.41 mL LA Vol Biplane A-L 51.3 mL LA Vol/BSA A4C A-L LA Vol/BSA A2C A-L LA Vol/BSA BP A-L 23.6 mL/m2 LA Vol A4C MOD 27.1 mL LA Vol A2C MOD 73.0 mL LA Vol BP MOD 48.4 mL RA Volume RA Area A4C 14.0 cm2 RA ESV A4C (A-L) 36.1mL RA Vol/BSA A4C A-L RA Length A4C 4.6 cm RA ESV A4C (MOD) 35.2mL LV Diastology MV E' medial 0.085 (>0.07 m/s) MV E Vmax 0.78 (0.4-1.3 m/s) MV E/E' MED 9.14 (<14) MV A Vmax 0.80 (0.4-1.3 m/s) MV E' lateral 0.088 (>0.1 m/s) E/A Ratio 1.0 MV E/E' LAT 8.83 (<14) MV E' Average 0.087 m/s MV E/E'(average) 8.98 Aortic Valve AoV Vmax 1.22 m/s LVOT Vmax 1.11 m/s AoV Peak Grad 5.9 mmHg LVOT Peak Grad 4.9 mmHg AoV Area (Vmax) 2.83 cm2 LVOT VTI 0.263 m AoV VTI 0.312 m LVOT Mean Grad 2.6 mmHg AoV Mean Ronn. 0.86 m/s LVOT SV 81.59 mL AoV Mean Grad 3.4 mmHg LVOT Diam s 1.95 cm AoV Area (VTI) 2.62 cm2 AV Regurg Peak Gr. 5.92 mmHg Velocity Ratio 0.91 Mitral Valve MV DT 215 (160-240 msec) MV Vmax TIPS 0.88 m/s MV Mean Grad 1.6 (<2mmHg) MV VTI 0.328 m Pulmonary Valve PV Vmax 1.00 (0.5-1.5 m/s) RVOT Vmax 0.76 m/s PV Peak Grad 4.0 mmHg RVOT Peak Gr. 2.3 mmHg PV Mean Ronn 0.70 m/s RVOT VTI 0.198 m PV Mean Grad 2.3 mmHg RVOT Mean Gr. 1.3 mmHg
[2024-10-18] MEDS: Regadenoson 0.4 MG/5 ML SYR IVP (10:31)
== END 2024-10-18 02:11 ==
LOC: DI 01:51
PROVIDERS: PCP Nurse Practitioner Family; Visit Provider Registered Nurse
DX: I48.91 Unspecified atrial fibrillation (principal)
CPT/HCPCS: 78452; 93017; 93306; J2785

== ENCOUNTER 2024-10-21 13:14 | Outpatient (REF) | payer BC, SELFPAY ==
--- NOTE | 2024-10-21 11:00 | SKI_PTH ---
PATIENT: Sandie Manriquez LOC: [facility] U#:[id number] AGE/SX: 64/F ROOM: RE10/21/[address]: Ed Bryant DNP : 1960 BED: DIS: 10/21/2024 SPEC #: [id number] RECD: 10/22/24 13:18 STATUS: JUANA REQ #: [id number] DOUGLAS: 10/21/24 11:[address]: Ed Florentino DEPT: Surgical Specimen RECD BY: Eneida Shukla Tissues: 1 - SKIN BIOPSY(SHAVE/PUNCH) 2 - SKIN BIOPSY(SHAVE/PUNCH) 3 - SKIN BIOPSY(SHAVE/PUNCH) 4 - SKIN BIOPSY(SHAVE/PUNCH) Procedures: SKIN LEVEL 4 Comments: [id number]
--- OUTSIDE RECORDS SUMMARY | 2024-10-22 13:16 | XMS_ITS | Encounter Summary ---
Author Organization [facility] Address [address] [place] [address] Care Team Providers Care Soft Sugar Cutter Name Role Phone Osbaldo Dewitt NP Primary Care Provider [phone] Unavailable [phone] Reason for Visit * Reason Comments Medications Refill Encounter Details Date Type Department Care Team (Late st Contact Info) Description 03/05/2023 Refill [facility] [address], [place] [phone] Osbaldo Dewitt NP [address] [place] [address] Medications Refill Social History Tobacco [...] 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 file Not on tone e documented as of this encounter Ordered Prescriptions Prescription Sig Dispense Quantity Refills Last Filled Start Date End Date atenoloL (TENORMIN) 25 mg tablet TAKE 1 TABLET BY MOUTH ONCE DAILY 90 Tablet 03/05/2023 05/21/2023 documented in this encounter Plan of Treatment Upcoming Encounters Date Type Department Care Team ([facility] Contact Info) Description 11/11/2024 15:30 EST Office Visit [facility] Family Medicine [address] [phone] Osbaldo Dewitt, FOOD BEVERAGE ATTENDANT [address] [place] [phone] documented as of this encounter Visit Diagnoses Not on filedocumented in this encounter Discontinued Medications Medication Sig Discontinue Reason Start Date End Da te atenoloL (TENORMIN) 25 mg tablet Take 1 Tablet by mouth daily. Reorder 11/18/2022 03/05/2023 documented as of this encounter Care Teams Soft Sugar Cutter Relationship Specialty Start Date End Date Osbaldo Dewitt, FOOD BEVERAGE ATTENDANT [address] [place] [phone] PCP - General 09/01/[address] [place] [phone] Registered Dietitian Clinical Nutrition 10/21/23 documented as of this encounter
--- OUTSIDE RECORDS SUMMARY | 2024-10-22 13:16 | XMS_ITS | Encounter Summary ---
Author Organization [facility] Address [address] [place] [address] Care Team Providers Care Virtual Assistant Name Role Phone Osbaldo Dewitt NP Primary Care Provider [phone] Reason for Visit * Reason Comments Medications Refill Encounter Details Date Type Department Care Team (Late st Contact Info) Description 01/17/2024 Refill [facility] [address] [place] [address] Osbaldo Dewitt NP [address] [place] [address] Medications Refill Social History Tobacco [...] slept in a usp (including now)? 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 file Not [...] Labs (BMP/CMP/LIPID/TSH) : N/A Pharmacy Of Choice: [facility] documented in this encounter Plan of Treatment Upcoming Encounters Date Type Department Care Team (Late st Contact Info) Description 11/11/2024 15:30 EST Office Visit [facility] Integrative Family Medicine [address] [phone] Osbaldo Dewitt NP [address] [place] [phone] documented as of this encounter Visit Diagnoses Diagnosis Anxiety Anxiety state, unspecified Depression, unspecified depression type documented in this encounter Discontinued Medications Medication Sig Discontinue Reason Start Date End Da te venlafaxine (EFFEXOR-XR) 37.5 mg XR capsuleIndications:Anxie ty,Depression, unspecified depression type Take 1 capsule by mouth every day. 09/18/2023 01/19/2024 documented as of this encounter Care Teams Virtual Assistant Relationship Specialty Start Date End Date Osbaldo Dewitt NP [address] [place] [phone] PCP - General 09/01/19 documented as of this encounter
--- OUTSIDE RECORDS SUMMARY | 2024-10-22 13:16 | XMS_ITS | Encounter Summary ---
Author Organization [facility] Address [address] [place] [address] Care Team Providers Care Flexible Shaft Winder Name Role Phone Osbaldo Dewitt FLEXIBLE SHAFT WINDER Primary Care Provider Andrey Johnson RD Unavailable [phone] Reason for Visit * Reason Comments Nutrition Counseling Weight * Consult (Routine/Next Available) - Specialty Report Received Specialty Diagnoses / Procedures Referred By Chance le Referred To Contact Diagnoses Class 1 obesity due to excess calories with serious comorbidity and body mass index (BMI) of 34.0 to 34.9 in adult Osbaldo Dewitt NP Phone: tel: fax: [facility] Integrative Family Medicine - [address] [address] Phone: tel: fax: Referral ID Status Reason Start Date Expiration Date Visits Requested Visits Authorized [id number] Specialty Report Received Specialty Services Required 3 1 1 Encounter Details Date Type Department Care Team ([facility] st Contact Info) Description 10/21/2023 9:30 EST Community Health Team 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 She hasa [employer] treadmill and knows that mice have gotten in to it and it needs to be cleaned out. Estimated energy requirement: 1900 Estimated intake: [id number] Recommended protein intake: 65-80 g Estimated protein intake: 58-60 g Anticipated inadequate intake of protein, vegetables, fiber, calcium Recommend to increase protein by 20-30 g daily. Recommend Premier Protein beverage mid day Recommend to add 1-2 servings veggies daily Pat plans on working on adding the above and will call [employer] to arrange for an in home service call to clean out machine so she can use it again to start walking more regularly again F/U PRN documented in this encounter Plan of Treatment Upcoming Encounters Date Type Department Care Team (Late st Contact Info) Description 11/11/2024 15:30 EST Office Visit [facility] Integrative Family Medicine [address] [address] Osbaldo Dewitt NP [address] [place] [phone] documented as of this encounter Visit Diagnoses Not on filedocumented in this encounter Care Teams Flexible Shaft Winder Relationship Specialty Start Date End Date Osbaldo Dewitt NP [address] [place] [phone] PCP - General 09/01/[address] [place] [phone] Registered Dietitian Clinical Nutrition 10/21/23 documented as of this encounter
--- OUTSIDE RECORDS SUMMARY | 2024-10-22 13:16 | XMS_ITS | Encounter Summary ---
Author Organization [facility] Address [address] [place] [address] Care Team Providers Care Greaser Operator Name Role Phone Osbaldo Dewitt NP Primary Care Provider [phone] Reason for Referral * Consult (Routine/Next Available) - Specialty Report Received Specialty Diagnoses / Procedures Referred By Chance le Referred To Contact Diagnoses Class 1 obesity due to excess calories with serious comorbidity and body mass index (BMI) of 34.0 to 34.9 in adult Osbaldo Dewitt NP Phone: tel: fax: [facility] Family Medicine [address] [address] Phone: tel: fax: Referral ID Status Reason Start Date Expiration Date Visits Requested Visits Authorized [id number] Specialty Report Received Specialty Services Required 3 1 1 Question Answer Nutrition/extension educator/Education: Nutrition, Wellness coaching, Weight loss Reason for Visit * Reason Comments Follow-up ed Encounter Details Date Type Department Care Team (Latest Contact Info) Description 09/16/2023 10:00 EST Office Visit [facility] Family Medicine [facility] [address] [place] [address] Osbaldo Dewitt, CHIEF JAILER [address] [place] [address] Atrial fibrillation, unspecified type (HCC-CMS) [...] slept in a correction (including now)? 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 [facility] Primary Care Subjective: Chief Complaint(s): Follow-up (ed) HPI: Pat presents today for TCM follow-up new onset A-fib with RVR after hospitalization at [facility] from 09/05/2023- 09/06/23. She presented with complaints of palpitations, shortness of breath and diaphoresis. Seen initially at urgent care and referred to [facility] with A-fib with a heart rate [...] 2023. Cardiology follow up next week in [place]. Patient was recently discharged from [facility] on 09/06/23. Patient was contacted yes. [...] BY MOUTH AT BEDTIME 90 Capsule 3 [id number]-CAPRYL ORAL Take by mouth. venlafaxine (EFFEXOR-XR) 37.5 [...] this visit: Atrial fibrillation, unspecified type ([facility]) Comments: Regular rhythm today. Reviewed all outside labs, imaging and notes. Plan to continue diltiazem 180mg daily and Eliquis and f/u with cardiology as scheduled Orders: - MAGNESIUM - COMPREHENSIVE METABOLIC PANEL (CMP) Class 1 obesity due to excess calories with serious comorbidity and body mass index (BMI) of 34.0 to 34.9 in adult - AMB CONS/FOLLOW UP IMMUNOLOGY SPECIALIST, SURVEY CHIEF AND NUTRITION; Future Alcohol use disorder Comments: Reviewed ETOH use recommendations, declines reduction support. Reviewed benefits of cessation/reducation. Pure hypercholesterolemia Comments: Reviewed labs completed at [facility]. ASCVD risk score 5.6%. Continue [...] 11/11/2024 15:30 EST Office Visit [facility] Family Medicine [address] [phone] Osbaldo Dewitt NP [address] [place] [address] Scheduled Referrals Name Type Priority Associated Diagnoses Order Schedule AMB CONS/FOLLOW UP IMMUNOLOGY SPECIALIST, SURVEY CHIEF AND NUTRITION Outpatient Referral Routine/Next Available Class [...] 138 136 - 145 mmol/L 09/17/2023 19:00 [facility] Potassium 4.0 3.5 - 5.0 mmol/L 09/17/2023 19:00 [facility] Chloride 101 96 - 110 mmol/L 09/17/2023 19:00 [facility] CO2 Total 28 22 - 32 mmol/L 09/17/2023 19:00 [facility] Glucose 96 70 - 99 mg/dl 09/17/2023 19:00 [facility] BUN 14 10 - 26 mg/dL 09/17/2023 19:00 [facility] Creatinine 0.56 0.52 - 1.04 mg/dL 09/17/2023 19:00 [facility] eGFR 102 >60 mL/min/1.7 3m2 09/17/2023 19:00 [facility] Total Protein 7.6 6.3 - 8.2 g/dL 09/17/2023 19:00 [facility] Albumin 4.4 3.4 - 4.9 g/dL 09/17/2023 19:00 [facility] Alkaline Phosphatase 58 38 - 126 U/L 09/17/2023 19:00 [facility] AST 31 15 - 46 U/L 09/17/2023 19:00 [facility] ALT 24 <35 U/L 09/17/2023 19:00 [facility] Bilirubin, Total <0.5 <1.4 mg/dL 09/17/20 19:00 [facility] Calcium 9.9 8.5 - 10.5 mg/dL 09/17/2023 19:00 [facility] Albumin/Globulin Ratio 1.4 1.0 - 2.5 g/dL 09/17/2023 19:00 [facility] Anion Gap 9 5 - 14 mmol/L 09/17/2023 19:00 [facility] Blood VENOUS BLOOD / Unknown Venipuncture / Unknown 09/16/2023 10:48 EST 09/16/2023 10:48 EST us Osbaldo Dewitt CHIEF JAILER CHEMISTRY & BLOOD GAS ORDERABL ES Final Result Performing Organization Address [facility] Co de Phone Number [facility] [address] [place] [address] * MAGNESIUM (09/16/2023 10:48 EST) Magnesium 1.8 1.7 - 2.8 mg/dL 09/17/2023 19:00 [facility] Blood VENOUS BLOOD / Unknown Venipuncture / Unknown 09/16/2023 10:48 EST 09/16/2023 10:48 EST us Osbaldo Dewitt CHIEF JAILER CHEMISTRY & BLOOD GAS ORDERABL ES Final Result Performing Organization Address [facility] Co de Phone Number [facility] [address] [place] [address] documented in this encounter Visit Diagnoses Diagnosis Atrial fibrillation, unspecified type ([facility])- Primary Class 1 obesity due to excess calories with serious comorbidity and body mass index (BMI) of 34.0 to 34.9 in adult Alcohol use disorder Pure hypercholesterolemia documented in this encounter Care Teams Greaser Operator Relationship Specialty Start Date End Date Osbaldo Dewitt NP [address] [place] [address] PCP - General 09/01/19 documented as of this encounter
--- OUTSIDE RECORDS SUMMARY | 2024-10-22 13:16 | XMS_ITS | Encounter Summary ---
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 Reorder 01/29/2022 06/24/2023 documented as of this encounter Care Teams Psych Nurse Relationship Specialty Start Date End Date Osbaldo Dewitt NP [address] [place] [phone] PCP - General 09/01/19 documented as of this encounter
--- OUTSIDE RECORDS SUMMARY | 2024-10-22 13:16 | XMS_ITS | Referral Summary ---
Author Organization [facility] Address [address] [place] [address] Care Team Providers Care Cloth Covered Helmet Puller Name Role Phone Osbaldo Dewitt NP Primary Care Provider [phone] Encounters Date Type Department Care Team Description 10/04/[address] [address] Osbaldo Dewitt NP Results 09/07/2024 10:45 EST Office Visit [address] [address] Osbaldo Dewitt NP Encounter for annual physical exam (Primary Dx); Need for vaccination; Encounter for screening mammogram for malignant neoplasm of breast; Menopausal and postmenopausal disorder; Cervical cancer screening; Class 2 obesity due to excess calories without serious comorbidity with body mass index (BMI) of 35.0 to 35.9 in adult; Atrial fibrillation, unspecified type (HCC-CMS); Anxiety 08/16/[address] [phone] Osbaldo Dewitt NP Medications Refill 08/16/[address] [facility] [place] Family Medicine [address] [address] Osbaldo Dewitt, LAST CHALKER Medications Refill from Last 3 Months Allergies [...] Take 1 Tablet by mouth daily. Active [id number] ORAL Take by mouth. Activ e acetaminophen [...] = 0.6 oz pur e alcohol) 2/night [facility] Utilities Answer Date Recorded In the past 12 months has [employer], [employer], oil, or water [employer] threatened to shut off services in your [...] in a fdc (including now)? No 10/15/2023 C - Inadequate Housing Answer Date Re corded What is your living situation today? I have a [facility] place to live 08/25/[address] you li ve. Do you have problems with any of the following? None of the above 08/25/2024 C - Transportation Answer Date Record ed In the past 12 months, has l ack of reliable transportation kept you from medical appointments, meetings, work or from getting things needed for daily living? No 08/25/2024 [facility] - Personal Safety Answer Date Recor [...] scream or curse at you? Never 08/25/2024 [facility] - Financial Strain Answer Date Mango rded How hard is it for you to pa y for the very basics like food, housing, medical care, and heating? Would you say it is: Not hard at all 08/25/2024 [facility] - Employment Answer Date Recorded Do you want help finding or keeping work or a job? I do not need or want help 08/25/2024 [facility] - Social Connections Answer Date Re corded If for any reason you need h elp with day-to-day activities such as bathing, preparing meals, shopping, managing finances, etc., do you get the help you need? I don't need any help 08/25/2024 How often do you feel lonely or isolated from those around you? Rarely 08/25/2024 [facility] - Education Answer Date Recorded Do you speak a language other than French at [facility]? No 08/25/2024 Do you want help with school or training? For example, starting or completing job training or getting a high school diploma, GED or equivalent. 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 atrophy, vaginal sample, hysterectomy) 09/14/2024 14:06 [facility] General Categorization Negative for intraepithelial lesion or malignancy 09/14/2024 14:06 [facility] Attestation . 09/14/2024 14:06 [facility] at 1406 Clinical History Screening cervical cancer 09/14/2024 14:06 [facility] Performing Lab [facility] 09/14/2024 14:06 [facility] Scanned Images 09/14/2024 14:06 [facility] HPV High Risk type 16, PCR Negative 09/14/2024 14:06 [facility] HPV High Risk type 18, PCR Negative 09/14/2024 14:06 [facility] HPV Other High Risk Types, PCR Negative The following Other High Risk HPV types were not detected: 31,33, 35, 39, 45, 51, 52, 56, 58, 59, 66 and 68. 09/14/2024 14:06 [facility] Pap Test CERVIX UTERI STRUCTURE / Unknown 09/07/2024 11:43 EST 09/07/2024 11:43 EST Osbaldo Dewitt NP PATHOLOGY ORDERABLES Final Res ult Performing Organization Address [facility] Co de Phone Number [facility] [address] [place] [phone] * HPV DNA DETECTION WITH GENOTYPING, PCR (09/07/2024 11:43 EST) HPV High Risk type 16, PCR Negative Negative 09/14/2024 14:06 EST [facility] HPV High Risk type 18, PCR Negative Negative 09/14/2024 14:06 EST [facility] HPV other High Risk types, PCR Negative Negative 09/14/2024 14:06 EST [facility] Comment: The following Other High Risk HPV types were not detected: ??31,33, 35, 39, 45, 51, 52, 56, 58, 59, 66 and 68. Pap Test CERVIX UTERI STRUCTURE / Unknown 09/07/2024 11:43 EST 09/13/2024 10:39 EST Osbaldo Dewitt NP MICROBIOLOGY - GENERAL ORDERAB LES Final Result Performing Organization Address [facility] de Phone Number [facility] [address] [place] [phone] * MA BREAST SCREENING JULIAN BILATERAL (03/01/2022 [...] EST) Triglyceride 83 <150 mg/dL 12/15/2020 9:04 [facility] Comment: Adult: Normal: ?<150 mg/dl ? Borderline High: 150-199 mg/dl ? High: ?200-499 mg/dl ? Very High: >cd=732 Cholesterol 225(H) <200 mg/dL 12/15/2020 9:04 [facility] Comment: Acceptable: ??<200 Borderline: ??200-239 High: ?> or = 240 Chol/HDL Ratio 3.5 0 - 4.5 12/15/2020 9:04 [facility] Comment: DESIRABLE RATIO IS LESS THAN 4.1 PATIENTS ARE CONSIDERED AT RISK: WOMEN RATIO >5 MEN RATIO >6 FASTING? - [facility] Yes 7:37 [facility] HDL 63(H) 40 - 60 mg/dL 12/15/2020 9:04 EST [facility] Comment: ?? Reference Range Low: ? < 40 ??mg/dL Normal: ??40-60 mg/dL High: ?>= 60 mg/dL LDL CHOLESTEROL - [facility] 145(H) 60 - 100 mg/dL 12/15/2020 9:04 EST [facility] Non HDL Cholesterol 162 mg/dl 12/15/2020 9:04 EST [facility] Comment: Desirable: ?Less than 130 Borderline High: ??130-159 High: ? 160-189 Very High: ?Greater than or equal to 190 12/15/2020 7:37 EST 12/15/2020 7:37 EST Narrative [facility] - 12/15/2020 9:04 EST Does PT Have a Latex Allergy? NO us Osbaldo Dewitt LAST CHALKER CHEMISTRY & BLOOD GAS ORDERABL ES Final Result [facility] [address] [place] [address] from Last 3 Months or Most Recently Relevant to Health Maintenance Insurance MEDICARE [facility] Care Teams Cloth Covered Helmet Puller Relationship Specialty Start Date End Date Osbaldo Dewitt NP [address] [place] [address] PCP - General 09/01/19
--- OUTSIDE RECORDS SUMMARY | 2024-10-22 13:16 | XMS_ITS | Encounter Summary ---
Author Organization [facility] Address [address] [place] [address] Care Team Providers Care Soapstoner Name Role Phone Osbaldo Dewitt NP Primary Care Provider [phone] Reason for Referral * Consult (Urgent) - Specialty Report Received Specialty Diagnoses / Procedures Referred By [facility] Referred To Contact Diagnoses Atrial fibrillation, unspecified type ([facility]) Osbaldo Dewitt NP Phone: tel: fax: Referral ID Status Reason Start Date Expiration Date Visits Requested Visits Authorized [id number] Specialty Report Received Specialty Services Required 09/10/2023 1 1 Question Answer [facility] Reason for Request: recently diagnosed with atrial fibrillation with RVR Reason for Visit * Reason Onset Date Comments Follow-up 09/08/2023 Coordination Of Care 09/08/2023 TCM Encounter Details Date Type Department Care Team ([facility] st Contact Info) Description 09/08/2023 Telephone [facility] [address] [place] [address] [address] Follow-up; Coordination Of Care (TCM) Social History [...] 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. * Telephone Encounter - Ruthann De Oliveira RN - 09/08/2023 1159 EST Follow up message sent to patient * Telephone Encounter - Malathi Juan - 09/08/2023 1058 EST Patient calls in for a follow up appointment from an Ed to hospital admission at [facility] for cardiac event. Patient scheduled with pcp on 09/16 documented in this encounter Plan of Treatment Upcoming Encounters Date Type Department Care Team (Late st Contact Info) Description 11/11/2024 15:30 EST Office Visit [facility] Family Medicine [address] [address] Osbaldo Dewitt NP [address] [place] [address] Scheduled Referrals Name Type Priority [...] 09/18/2023 added in this encounter Care Teams Soapstoner Relationship Specialty Start Date End Date Osbaldo Dewitt NP [address] [place] [id number] PCP - General 09/01/19 documented as of this encounter
--- OUTSIDE RECORDS SUMMARY | 2024-10-22 13:16 | XMS_ITS | Encounter Summary ---
Author Organization [facility] Address [address] [place] [address] Care Team Providers Care Billet Bed Operator Name Role Phone Osbaldo Dewitt NP Primary Care Provider [phone] Reason for Referral * PT/OT/ST (Routine/Next Available) - Closed Specialty Diagnoses / Procedures [facility]erred By [facility] Referred To Contact Diagnoses Chronic left-sided low back pain without sciatica Osbaldo Dewitt NP Phone: tel: fax: Referral ID Status Reason Start Date Expiration Date V isits Requested Visits Authorized [id number] Closed Specialty Services Required 11/11/2023 1 1 Question Answer Reason for Request: left sided low back pain [facility] Reason for Visit * Reason Comments Pre-op Exam Encounter Details Date Type Department Care Team (Late st Contact Info) Description 11/11/2023 11:30 EST Office Visit [facility] Integrative Family Medicine 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 [facility] [place] Preoperative Evaluation Patient ID: Sandie Manriquez is a 63 y.o. female Date of Service: 11/11/2023 Reason for Visit: Preop Subjective: History: Right shoulder pain for 4 years, has tried PT, ice/heat, injections x 3 without full benefit. Continues to have chronic pain, difficulty sleeping, diminished ROM Procedure: R total shoulder replacement Surgeon: Christine Colby [place] [facility]: 12/09/23 Relevant: HX Tobacco: Quit 1977 [...] suprainguinal vascular surgery): no History of ischemic [place] or a positive exercise test, current complaint [...] AT BEDTIME, Disp: 90 Capsule, Rfl: 3 [id number]-CAPRYL ORAL, Take by mouth., Disp: , Rfl: [...] Cronin esophagus Glenohumeral arthritis, left Atrial fibrillation ([facility]) Past Medical History: Diagnosis Date GERD (gastroesophageal reflux disease) Ramy Fundoplication Past Surgical History: Procedure Laterality Date CARPAL TUNNEL RELEASE Right 2003 GASTRIC FUNDOPLICATION 2009 [place] [facility] Family History Problem Relation Age of Onset [...] (e.g., BA, AB, BS) Occupational History 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 Tobacco Use Smoking status: Former Current packs/day: [...] (Non-Medical): No Stress: Stress Concern Present (12/05/2020) [facility] - Occupational Stress Questionnaire [...] a major cardiac event; EKG: completed at [facility] 10/08/23, interpretation: EKG: October 08, 2023: [...] Visit [facility] Family Medicine [address] [address] Osbaldo Dewitt NP [address] [place] [address] [phone] Scheduled Referrals Name Type Priority Associated Diagnoses [...] documented as of this encounter Care Teams Billet Bed Operator Relationship Specialty Start Date End Date Osbaldo Dewitt NP [address] [place] [address] [phone] PCP - General 09/01/19 documented as of this encounter
--- OUTSIDE RECORDS SUMMARY | 2024-10-22 13:16 | XMS_ITS | Encounter Summary ---
Author Organization [facility] Address [address] [place] [address] Care Team Providers Care Desk Clerks Supervisor Name Role Phone Osbaldo Dewitt NP Primary Care Provider [phone] Encounter Details Date Type Department Care Team [...] place to sleep or slept in a long term (including now)? 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
--- OUTSIDE RECORDS SUMMARY | 2024-10-22 13:16 | XMS_ITS | Encounter Summary ---
Author Organization [facility] Address [address] [place] [address] Care Team Providers Care Feather Renovator Name Role Phone Osbaldo Dewitt NP Primary Care Provider [phone] Reason for Visit * Reason Comments Medications Refill Encounter Details Date Type Department Care Team (Late st Contact Info) Description 08/16/2024 Refill [facility] Family Medicine [facility] [address] [place] [address] Osbaldo Dewitt NP [address] [place] [address] Medications Refill Social History Tobacco [...] 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 file Not [...] 09/18/2023 Last Labs: 09/16/2023 Pharmacy Of Choice: [facility] documented in this encounter Plan of Treatment Upcoming Encounters Date Type Department Care Team (Late st Contact Info) Description 11/11/2024 15:30 EST Office Visit [facility] [place] [address] Osbaldo Dewitt NP [address] [place] [phone] documented as of this encounter Visit Diagnoses [...] documented as of this encounter Care Teams Feather Renovator Relationship Specialty Start Date End Date Osbaldo Dewitt NP [address] [place] [address] [place] [address] PCP - General 09/01/19 documented as of this encounter
--- OUTSIDE RECORDS SUMMARY | 2024-10-22 13:16 | XMS_ITS | Encounter Summary ---
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 [facility] [place] Care Preoperative Evaluation Patient ID: Sandie Manriquez is a 62 y.o. female Date of Service: 02/20/2023 Reason for Visit: Pre-op Exam Subjective: History: Left shoulder pain for several years, history of osteoarthritis and partial rotator cuff tear, status post injections with waning benefit. Procedure: L shoulder replacement Surgeon: Dr Loir Colby at [facility] Date: 03/11/2023 Relevant HX: Hypertension, hyperlipidemia, Cronin's [...] suprainguinal vascular surgery): no History of ischemic [place] or a positive exercise test, current complaint [...] BEDTIME, Disp: 90 Capsule, Rfl: 1 ??? [id number]-OREG-CAPRYL ORAL, Take by mouth., Disp: , Rfl: [...] 2002 ??? GASTRIC FUNDOPLICATION 2009 Ramy-fundoplication at [facility] Family History Problem Relation Age of Onset [...] BA, AB, BS) Occupational History ??? 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 Smoking status: Former Years: [...] 11/11/2024 15:30 EST Office Visit [facility] [address] [place], [place] [phone] Osbaldo Dewitt NP [address] [place] [address] documented as of this encounter Procedures Procedure Name Priority Date/Time Associated Diagnosis Comments POCT HEMOGLOBIN A1C Routine 02/20/2023 Pre-op evaluation Elevated fasting glucose documented in this encounter Results * POCT HEMOGLOBIN A1C (02/20/2023) Hemoglobin A1c, POC 5.6 <=5.7 % [facility] POINT OF CARE Blood CAPILLARY BLOOD / Unknown 02/20/2023 us Osbaldo Dewitt NP POINT OF CARE TEST ORDERABLES Final Result [facility] POINT OF CARE documented in this encounter Visit Diagnoses Diagnosis Primary osteoarthritis of left shoulder- Primary Primary localized osteoarthrosis, shoulder region Pre-op evaluation Preoperative examination, unspecified Elevated fasting glucose Impaired fasting glucose documented in this encounter Historical Medications * This list may reflect changes made after this encounter. [id number] -OREG-CAPRYL ORAL Take by mouth. added in this encounter Care Teams Bank Vault Clerk Relationship Specialty Start Date End Date Osbaldo Dewitt NP [address] [place] [address] PCP - General 09/01/19 documented as of this encounter
--- OUTSIDE RECORDS SUMMARY | 2024-10-22 13:16 | XMS_ITS | Encounter Summary ---
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 Reorder 12/07/2020 08/16/2024 clobetasoL (TEMOVATE) 0.05 % ointment APPLY TOPICALLY TWICE DAILY NEEDED Reorder 08/11/2023 08/16/2024 documented as of this encounter Care Teams Cupola Melter Relationship Specialty Start Date End Date Osbaldo Dewitt NP [address] [place] [address] PCP - General 09/01/19 documented as of this encounter
--- OUTSIDE RECORDS SUMMARY | 2024-10-22 13:16 | XMS_ITS | Encounter Summary ---
Author Organization [facility] Address [address] [place] [address] Care Team Providers Care Rejoiner Name Role Phone Osbaldo Dewitt NP Primary Care Provider [phone] Reason for Visit * Reason Comments Medications Refill Encounter Details Date Type Department Care Team (Late st Contact Info) Description 08/10/2023 Refill [facility] [place] [facility] [address] [place] [address] Osbaldo Dewitt NP [address] [place] [address] Medications Refill Social History Tobacco [...] slept in a half-way (including now)? 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 06/24/2023 08/11/2023 documented as of this encounter Care Teams Rejoiner Relationship Specialty Start Date End Date Osbaldo Dewitt NP [address] [place] [phone] PCP - General 09/01/19 documented as of this encounter
--- OUTSIDE RECORDS SUMMARY | 2024-10-22 13:16 | XMS_ITS | Encounter Summary ---
Author Organization [facility] Address [address] [place] [address] Care Team Providers Care Property Claim Rep Name Role Phone Osbaldo Dewitt NP Primary Care Provider [phone] Reason for Visit * Reason Comments Medications Refill Encounter Details Date Type Department Care Team (Late st Contact Info) Description 04/20/2023 Refill [facility] [place] [facility] [address] [place] [address] Osbaldo Dewitt NP [address] [place] [address] Medications Refill Social History Tobacco [...] 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 [...] [facility] [address] [phone] Osbaldo Dewitt NP [address] [place] [phone] documented as of this encounter Visit Diagnoses Diagnosis Gastroesophageal reflux disease- Primary Esophageal reflux documented in this encounter Discontinued Medications Medication Sig Discontinue Reason Start Date End Da te omeprazole (PRILOSEC) 20 mg capsuleIndications:Gastr oesophageal reflux disease TAKE ONE CAPSULE BY MOUTH AT BEDTIME 10/25/2022 04/21/2023 documented as of this encounter Care Teams Property Claim Rep Relationship Specialty Start Date End Date Osbaldo Dewitt NP [address] [place] [phone] PCP - General 09/01/19 documented as of this encounter
--- OUTSIDE RECORDS SUMMARY | 2024-10-22 13:16 | XMS_ITS | Encounter Summary ---
Author Organization [facility] Address [address] [place] [address] Care Team Providers Care Practical Nursing Instructor Name Role Phone Osbaldo Dewitt NP Primary Care Provider Reason for Visit * Reason Onset Date Comments Results 10/04/2024 Encounter Details Date Type Department Care Team (Late st Contact Info) Description 10/04/[address] [facility] [place] [facility] [address] [place] [address] Osbaldo Dewitt NP [address] [place] [address] Results Social History Tobacco Use Types Packs/Day Years Used Date Smoking Tobacco: Former Cigarettes 1 1977 Smokeless Tobacco: Never Alcohol Use Standard Drinks/Week Comments Not Currently 0 (1 standard drink = 0.6 oz pur e alcohol) 2/night [facility] Utilities Answer Date Recorded In the past 12 months has Ti[employer] e electric, gas, oil, or water company [...] in a halfway (including now)? No 10/15/2023 C - Inadequate Housing Answer Date Re corded What is your living situation today? I have a [facility] [place] place to live 08/25/[address] you li ve. Do you have problems with any of the following? None of the above 08/25/2024 [facility] - Transportation Answer Date Record ed In the past 12 months, has l ack of reliable transportation kept you from medical appointments, meetings, work or from getting things needed for daily living? No 08/25/2024 [facility] - Personal Safety Answer Date Recor [...] scream or curse at you? Never 08/25/2024 [facility] - Financial Strain Answer Date Mango rded How hard is it for you to pa y for the very basics like food, housing, medical care, and heating? Would you say it is: Not hard at all 08/25/2024 [facility] - Employment Answer Date Recorded Do you want help finding or keeping work or a job? I do not need or want help 08/25/2024 [facility] - Social Connections Answer Date Re corded If for any reason you need h elp with day-to-day activities such as bathing, preparing meals, shopping, managing finances, etc., do you get the help you need? I don't need any help 08/25/2024 How often do you feel lonely or isolated from those around you? Rarely 08/25/2024 [facility] - Education Answer Date Recorded Do you speak a language other than [place] [employer]? No 08/25/2024 Do you want help with school or training? For example, starting or completing job training or getting a high school diploma, GED or equivalent. 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
--- OUTSIDE RECORDS SUMMARY | 2024-10-22 13:16 | XMS_ITS | Encounter Summary ---
Author Organization [facility] Address [address] [place] [address] Care Team Providers Care Composition Weatherboard Installer Name Role Phone Osbaldo Dewitt NP Primary Care Provider [phone] Encounter Details Date Type Department Care Team [...] slept in a jail (including now)? 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 Not on tone e documented as of this encounter Plan of Treatment Upcoming Encounters Date Type Department Care Team (Late st Contact Info) Description 11/11/2024 15:30 EST Office Visit [facility] Medicine [address] [address] Osbaldo Dewitt, ENVIRONMENTAL ENGINEERING INTERN [address] [place] [address] documented as of this encounter Visit Diagnoses Not on filedocumented in this encounter Care Teams Composition Weatherboard Installer Relationship Specialty Start Date End Date Osbaldo Dewitt NP [address] [place] [address] PCP - General 09/01/19 documented as of this encounter
--- OUTSIDE RECORDS SUMMARY | 2024-10-22 13:16 | XMS_ITS | Encounter Summary ---
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 file Not [...] Info) Description 11/11/2024 15:30 EST Office Visit [facility] [address] [phone] Osbaldo Dewitt NP [address] [place] [phone] documented as of this encounter Visit Diagnoses Not on filedocumented in this encounter Discontinued Medications Medication Sig Discontinue Reason Start Date End Da te atenoloL (TENORMIN) 25 mg tablet TAKE 1 TABLET BY MOUTH ONCE DAILY 03/05/2023 05/21/2023 documented as of this encounter Care Teams Front Office Clerk Relationship Specialty Start Date End Date Osbaldo Dewitt NP [address] [place] [address] PCP - General 09/01/19 documented as of this encounter
--- OUTSIDE RECORDS SUMMARY | 2024-10-22 13:16 | XMS_ITS | Encounter Summary ---
Author Organization [facility] Address [address] [place] [address] Care Team Providers Care Repair Department Manager Name Role Phone Osbaldo Dewitt NP Primary Care Provider [phone] Reason for Referral * Consult (Routine/Next Available) - Authorization Not Required Specialty Diagnoses / Procedures Referred By [facility] Referred To Contact Diagnoses Atrial fibrillation, unspecified type ([facility]) Osbaldo Dewitt NP [address] [place] [address] Phone: tel: fax: Referral ID Status Reason Start Date Expiration Date Visits Requested Visits Authorized [id number] Authorization Not Required Patient Preference 4 1 1 Question Answer Please choose one of the following condition categories: Other Clinical Question Scheduling Comments (optional ? 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 documented in this encounter Plan of Treatment Upcoming Encounters Date Type Department Care Team (Late st Contact Info) Description 11/11/2024 15:30 EST Office Visit [facility] Integrative Family Medicine [place] [phone] Osbaldo Dewitt NP [address] [place], [place] [phone] Scheduled Referrals Name Type Priority Associated Diagnoses Order Schedule AMB CONS/FOLLOW UP CARDIOLOGY Outpatient Referral Routine/Next Available Atrial fibrillation, unspecified type (HCC-CMS) Expected: 06/10/2024 (Approximate), Expires: 05/27/2025 documented as of this encounter Visit Diagnoses Diagnosis Atrial fibrillation, unspecified type (HCC-CMS)- Primary documented in this encounter Care Teams Repair Department Manager Relationship Specialty Start Date End Date Osbaldo Dewitt NP [address] [place] [address] PCP - General 09/01/19 documented as of this encounter
--- OUTSIDE RECORDS SUMMARY | 2024-10-22 13:16 | XMS_ITS | Encounter Summary ---
Author Organization [facility] Address [address] [place] [address] Care Team Providers Care Net Developer Contract Name Role Phone Osbaldo Dewitt NP Primary Care Provider [phone] Reason for Visit * Reason Comments Medications Refill Encounter Details Date Type Department Care Team (Late st Contact Info) Description 04/25/2023 Refill [facility] [address] [place] [address] Osbaldo Dewitt NP [address] [place] [address] Medications Refill Social History Tobacco [...] Job 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 Date 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 Not on file Not [...] 15:30 EST Office Visit [facility] [address] [phone] Osbaldo Dewitt NP [address] [place] [phone] documented as of this encounter Visit Diagnoses Not on filedocumented in this encounter Discontinued Medications Medication Sig Discontinue Reason Start Date End Da te hydroCHLOROthiazide (HYDRODIURIL) 25 mg tablet TAKE ONE TABLET BY MOUTH ONCE DAILY 02/03/2023 04/28/2023 documented as of this encounter Care Teams Net Developer Contract Relationship Specialty Start Date End Date Osbaldo Dewitt NP [address] [place] [id number] PCP - General 09/01/19 documented as of this encounter
--- OUTSIDE RECORDS SUMMARY | 2024-10-22 13:16 | XMS_ITS | Encounter Summary ---
Author Organization [facility] Address [address] [place] [address] Care Team Providers Care Barrel Cutter Name Role Phone Osbaldo Dewitt NP Primary Care Provider [phone] Reason for Visit * Reason Onset Date Comments Medications Refill 10/27/2023 Encounter Details Date Type Department Care Team (Late st Contact Info) Description 10/27/2023 Refill [facility] Integrative Family Medicine [facility] [address] [place] [address] Osbaldo Dewitt NP [address] [place] [address] Medications Refill Social History Tobacco [...] slept in a fci (including now)? 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
--- OUTSIDE RECORDS SUMMARY | 2024-10-22 13:16 | XMS_ITS | Clinical Summary ---
Author Organization [facility] Address [address] [place] [address] Care Team Providers Care Circular Sawyer Stone Name Role Phone Osbaldo Dewitt NP Primary Care Provider [phone] Allergies Active Allergy Reactions Criticality Noted Date [...] Take 1 Tablet by mouth daily. Active [id number] ORAL Take by mouth. Activ e acetaminophen [...] Type Department Care Team Description 10/04/[address] [id number] Osbaldo Dewitt NP Results 09/07/2024 10:45 EST Office Visit [address] [phone] Osbaldo Dewitt NP Encounter for annual physical exam (Primary Dx); Need for vaccination; Encounter for screening mammogram for malignant neoplasm of breast; Menopausal and postmenopausal disorder; Cervical cancer screening; Class 2 obesity due to excess calories without serious comorbidity with body mass index (BMI) of 35.0 to 35.9 in adult; Atrial fibrillation, unspecified type ([facility]); Anxiety 08/16/[address] [phone] Osbaldo Dewitt NP Medications Refill 08/16/[address] [address] Osbaldo Dewitt NP Medications Refill [...] , Unspecified 07/06/2024,07/25/2022 Influenza Vaccine Quad (AFLU EDENILSNO) PF 0.5 ml IM (3 yrs+) 07/07/2020,07/08/2017,10/14/2016 [...] GASTRIC FUNDOPLICATION 10/06/2008 - 10/05/2009 Ramy-fundoplication at [facility] CARPAL TUNNEL RELEASE Bilateral 2002, 2023 SHOULDER SURGERY 12/05/2023 - 01/04/[address] Colby - [facility] FINGER TRIGGER RELEASE 10/06/2023 - 10/05/2024 Left [...] = 0.6 oz pur e alcohol) 2/night [facility] Utilities Answer Date Recorded In the past [...] in a longterm (including now)? No 10/15/2023 [facility] - Inadequate Housing Answer Date Re corded What is your living situation today? I have a [facility] [place] place to live 08/25/[address] you li ve. Do you have problems with any of the following? None of the above 08/25/2024 [facility] - Transportation Answer Date Record ed In the past 12 months, has l ack of reliable transportation kept you from medical appointments, meetings, work or from getting things needed for daily living? No 08/25/2024 [facility] - Personal Safety Answer Date Recor ded [...] scream or curse at you? Never 08/25/2024 [facility] - Financial Strain Answer Date Mango rded How hard is it for you to pa y for the very basics like food, housing, medical care, and heating? Would you say it is: Not hard at all 08/25/2024 [facility] - Employment Answer Date Recorded Do you want help finding or keeping work or a job? I do not need or want help 08/25/2024 [facility] - Social Connections Answer Date Re corded If for any reason you need h elp with day-to-day activities such as bathing, preparing meals, shopping, managing finances, etc., do you get the help you need? I don't need any help 08/25/2024 How often do you feel lonely or isolated from those around you? Rarely 08/25/2024 [facility] - Education Answer Date Recorded Do you speak a language other than [place] at [facility]? 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 atrophy, vaginal sample, hysterectomy) 09/14/2024 14:06 [facility] General Categorization Negative for intraepithelial lesion or malignancy 09/14/2024 14:06 [facility] Attestation . 09/14/2024 14:06 [facility] at 1406 Clinical History Screening cervical cancer 09/14/2024 14:06 [facility] Performing Lab [facility] 09/14/2024 14:06 [facility] Scanned Images 09/14/2024 14:06 [facility] HPV High Risk type 16, PCR Negative 09/14/2024 14:06 [facility] HPV High Risk type 18, PCR Negative 09/14/2024 14:06 [facility] HPV Other High Risk Types, PCR Negative The following Other High Risk HPV types were not detected: 31,33, 35, 39, 45, 51, 52, 56, 58, 59, 66 and 68. 09/14/2024 14:06 [facility] Pap Test CERVIX UTERI STRUCTURE / Unknown 09/07/2024 11:43 EST 09/07/2024 11:43 EST us Osbaldo Dewitt NP PATHOLOGY ORDERABLES Final Res ult [facility] [address] [place] [address] * HPV DNA DETECTION WITH GENOTYPING, PCR (09/07/2024 11:43 EST) HPV High Risk type 16, PCR Negative Negative 09/14/2024 14:06 [facility] HPV High Risk type 18, PCR Negative Negative 09/14/2024 14:06 [facility] HPV other High Risk types, PCR Negative Negative 09/14/2024 14:06 EST [facility] Comment: The following Other High Risk HPV types were not detected: ??31,33, 35, 39, 45, 51, 52, 56, 58, 59, 66 and 68. Pap Test CERVIX UTERI STRUCTURE / Unknown 09/07/2024 11:43 EST 09/13/2024 10:39 EST us Osbaldo Dewitt NP MICROBIOLOGY - GENERAL ORDERAB LES Final Result [facility] [address] [place], [place] [id number] * MA BREAST SCREENING JULIAN BILATERAL (03/01/2022 [...] EST) Triglyceride 83 <150 mg/dL 12/15/2020 9:04 [facility] Comment: Adult: Normal: ?<150 mg/dl ? Borderline High: 150-199 mg/dl ? High: ?200-499 mg/dl ? Very High: >cc=467 Cholesterol 225(H) <200 mg/dL 12/15/2020 9:04 [facility] Comment: Acceptable: ??<200 Borderline: ??200-239 High: ?> or = 240 Chol/HDL Ratio 3.5 0 - 4.5 12/15/2020 9:04 [facility] Comment: DESIRABLE RATIO IS LESS THAN 4.1 PATIENTS ARE CONSIDERED AT RISK: WOMEN RATIO >5 MEN RATIO >6 FASTING? - [facility] Yes 7:37 [facility] HDL 63(H) 40 - 60 mg/dL 12/15/2020 9:04 [facility] Comment: ?? Reference Range Low: ? < 40 ??mg/dL Normal: ??40-60 mg/dL High: ?>= 60 mg/dL LDL CHOLESTEROL - [facility] 145(H) 60 - 100 mg/dL 12/15/2020 9:04 [facility] Non HDL Cholesterol 162 mg/dl 12/15/2020 9:04 [facility] Comment: Desirable: ?Less than 130 Borderline High: ??130-159 High: ? 160-189 Very High: ?Greater than or equal to 190 12/15/2020 7:37 EST 12/15/2020 7:37 EST Narrative [facility] - 12/15/2020 9:04 EST Does PT Have a Latex Allergy? NO us Osbaldo Dewitt NP CHEMISTRY & BLOOD GAS ORDERABL ES Final Result Performing Organization Address City/State/[facility] Co de Phone Number [facility] [address] [place] [address] from Last 3 Months or Most Recently Relevant to Health Maintenance Insurance MEDICARE [facility] Care Teams Circular Sawyer Stone Relationship Specialty Start Date End Date Osbaldo Dewitt NP [address] [place] [address] PCP - General 09/01/19
--- OUTSIDE RECORDS SUMMARY | 2024-10-22 13:16 | XMS_ITS | Encounter Summary ---
Author Organization [facility] Address [address] [place] [address] Care Team Providers Care Dining Room Attendant Name Role Phone Osbaldo Dewitt NP Primary Care Provider [phone] Reason for Visit * Reason Onset Date Comments Medications Refill 05/27/2024 Encounter Details Date Type Department Care Team (Late st Contact Info) Description 05/27/2024 Refill [facility] Integrative Family Medicine [facility] [address] [place] [address] Osbaldo Dewitt NP [address] [place] [address] Medications Refill Social History Tobacco [...] slept in a alf (including now)? 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
--- OUTSIDE RECORDS SUMMARY | 2024-10-22 13:16 | XMS_ITS | Encounter Summary ---
Author Organization [facility] Address [address] [place] [address] Care Team Providers Care Link Fabric Machine Operator Name Role Phone Osbaldo Dewitt NP Primary Care Provider [phone] Reason for Referral * Radiology Services (Routine/Next Available) - Specialty Report Received Specialty Diagnoses / Procedures Referred By Chance le Referred To Contact Diagnoses Menopausal and postmenopausal disorder Procedures DXA BONE DENSITY Osbaldo Dewitt NP [address] [place] [address] Phone: tel: fax: Referral ID Status Reason Start Date Expiration Date V isits Requested Visits Authorized [id number] Specialty Report Received 09/07/2024 1 1 * Radiology Services (Routine/Next Available) - Specialty Report Received Specialty Diagnoses / Procedures Referred By Chance le Referred To Contact Diagnoses Encounter for screening mammogram for malignant neoplasm of breast Procedures MA BREAST SCREENING JULIAN BILATERAL Osbaldo Dewitt NP [address] [place] [address] Phone: tel: fax: Referral ID Status Reason Start Date Expiration Date V isits Requested Visits Authorized [id number] Specialty Report Received 09/07/2024 1 1 * Laboratory Services (Routine/Next Available) - New Request Specialty Diagnoses / Procedures Referred By Chance le Referred To Contact Diagnoses Class 2 obesity due to excess calories without serious comorbidity with body mass index (BMI) of 35.0 to 35.9 in adult Procedures HEMOGLOBIN A1C Osbaldo Dewitt NP [address] [place] [address] Phone: tel: fax: Referral ID Status Reason Start Date Expiration Date V isits Requested Visits Authorized [id number] New Request 09/07/2024 1 1 * Laboratory Services (Routine/Next Available) - New Request Specialty Diagnoses / Procedures Referred By Chance le Referred To Contact Diagnoses Encounter for annual physical exam Procedures COMPREHENSIVE METABOLIC PANEL (CMP) Osbaldo Dewitt NP [address] [place] [address] Phone: tel: fax: Referral ID Status Reason Start Date Expiration Date V isits Requested Visits Authorized [id number] New Request 09/07/2024 1 1 * Laboratory Services (Routine/Next Available) - New Request Specialty Diagnoses / Procedures Referred By Chance le Referred To Contact Diagnoses Encounter for annual physical exam Procedures LIPID PROFILE (INCLUDES CHOLESTEROL, TRIGLYCERIDES, HDL, LDL) Osbaldo Dewitt NP [address] [place] [address] Phone: tel: fax: Referral ID Status Reason Start Date Expiration Date V isits Requested Visits Authorized [id number] New Request 09/07/2024 1 1 Reason for Visit * Reason Comments Annual Exam Encounter Details Date Type Department Care Team (Latest Contact Info) Description 09/07/2024 10:45 EST Office Visit [facility] Family [facility] [address] [place] [address] Osbaldo Dewitt NP [address], [place] [phone] Encounter for annual physical exam (Primary Dx); Need for vaccination; Encounter for screening mammogram for malignant neoplasm of breast; Menopausal and postmenopausal disorder; Cervical cancer screening; Class 2 obesity due to excess calories without serious comorbidity with body mass index (BMI) of 35.0 to 35.9 in adult; Atrial fibrillation, unspecified type ([facility]); Anxiety Social History Tobacco Use Types Packs/Day Years Used Date Smoking Tobacco: Former Cigarettes 1977 Smokeless Tobacco: Never Alcohol Use Standard Drinks/Week Comments Not Currently 0 (1 standard drink = 0.6 oz pur e alcohol) 2/ [facility] [employer] Answer Date Recorded In the past 12 months has [employer], [employer], oil, or water [employer] threatened to shut off services in your [...] health care facility (including now)? No 10/15/2023 [facility] - Inadequate Housing Answer Date Re corded What is your living situation today? I have a [facility] place to live 08/25/[address] you li ve. Do you have problems with any of the following? None of the above 08/25/2024 [facility] - Transportation Answer Date Record ed In the past 12 months, has l ack of reliable transportation kept you from medical appointments, meetings, work or from getting things needed for daily living? No 08/25/2024 [facility] - Personal Safety Answer Date Recor ded [...] scream or curse at you? Never 08/25/2024 [facility] - Financial Strain Answer Date Mango rded How hard is it for you to pa y for the very basics like food, housing, medical care, and heating? Would you say it is: Not hard at all 08/25/2024 [facility] - Employment Answer Date Recorded Do you want help finding or keeping work or a job? I do not need or want help 08/25/2024 [facility] - Social Connections Answer Date Re corded If for any reason you need h elp with day-to-day activities such as bathing, preparing meals, shopping, managing finances, etc., do you get the help you need? I don't need any help 08/25/2024 How often do you feel lonely or isolated from those around you? Rarely 08/25/2024 [facility] - Education Answer Date Recorded Do you speak a language other than Irish at [facility]? No 08/25/2024 Do you want help with school or training? For example, starting or completing job training or getting a high school diploma, GED or equivalent. 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 [facility] Primary Care Preventive Service Visit Subjective: HPI: The 64 y.o. female presents for a routine check-up and exam. CONCERNS: Hypertension/A-fib Managed with diltiazem 240 mg daily, flecainide 100 mg twice daily and atenolol 25 mg QD. Medication adherence is good. Denies chest pain, shortness of breath, new onset edema. Sees cardiology at [facility]. Labs [facility] 10/11/22 Cholesterol Total: 219 LDL: 118 HDL: [...] Cannot find a previous total cholesterol lab CONTACT CENTER TEAM LEAD No LMP recorded. Patient is postmenopausal. Last [...] CAM (obstructive sleep apnea) 09/07/2024 Atrial fibrillation ([facility]) 11/11/2023 Glenohumeral arthritis, left 03/11/2023 Anxiety 11/09/2019 [...] Left 2023 GASTRIC FUNDOPLICATION 2008 Ramy-[place]op[place] [facility] [place]GERY Right 12/2023 Dr. Colby - [facility] Family History [...] BY MOUTH AT BEDTIME 90 Capsule 3 [id number]-CAPRYL ORAL Take by mouth. No current facility-administered [...] HEMOGLOBIN A1C; Future Atrial fibrillation, unspecified type ([facility]) - flecainide (TAMBOCOR) 100 mg tablet; [...] Info) Description 11/11/2024 15:30 EST Office Visit [facility] Family Medicine [address] [address] Osbaldo Dewitt NP [address] [place] [phone] Scheduled Orders Name Type Priority Associated Diagnoses [...] type 16, PCR Negative Negative 09/14/2024 14:06 [facility] HPV High Risk type 18, PCR Negative Negative 09/14/2024 14:06 [facility] HPV other High Risk types, PCR Negative Negative 09/14/2024 14:06 [facility] Comment: The following Other High Risk HPV types were not detected: ??31,33, 35, 39, 45, 51, 52, 56, 58, 59, 66 and 68. Pap Test CERVIX UTERI STRUCTURE / Unknown 09/07/2024 11:43 EST 09/13/2024 10:39 EST us Osbaldo Dewitt NP MICROBIOLOGY - GENERAL ORDERAB LES Final Result [facility] [address] [place] [address] * PAP TEST (09/07/2024 11:43 EST) Specimens A. Cervix and/or Endocervix , ThinPrep Imaging System with Manual Evaluation 09/14/2024 14:06 [facility] Specimen Adequacy Satisfactory for Evaluation - assessment of transformation zone component not applicable ( e.g. atrophy, vaginal sample, hysterectomy) 09/14/2024 14:06 [facility] General Categorization Negative for intraepithelial lesion or malignancy 09/14/2024 14:06 [facility] Attestation . 09/14/2024 14:06 [facility] at 1406 Clinical History Screening cervical cancer 09/14/2024 14:06 [facility] Performing Lab [facility] 09/14/2024 14:06 [facility] Scanned Images 09/14/2024 14:06 [facility] HPV High Risk type 16, PCR Negative 09/14/2024 14:06 [facility] HPV High Risk type 18, PCR Negative 09/14/2024 14:06 [facility] HPV Other High Risk Types, PCR Negative The following Other High Risk HPV types were not detected: 31,33, 35, 39, 45, 51, 52, 56, 58, 59, 66 and 68. 09/14/2024 14:06 [facility] Pap Test CERVIX UTERI STRUCTURE / Unknown 09/07/2024 11:43 EST 09/07/2024 11:43 EST us Osbaldo Dewitt NP PATHOLOGY ORDERABLES Final Res ult Performing Organization Address City/State/[facility] [[email or web address]] Co de Phone Number [facility] [address] [place], [place] [id number] documented in this encounter Visit Diagnoses Diagnosis [...] 35.9 in adult Atrial fibrillation, unspecified type ([facility]) Anxiety Anxiety state, unspecified documented in [...] 09/07/2024 documented in this encounter Care Teams Link Fabric Machine Operator Relationship Specialty Start Date End Date Osbaldo Dewitt NP [address] [place] [address] PCP - General 09/01/19 documented as of this encounter
--- OUTSIDE RECORDS SUMMARY | 2024-10-22 13:16 | XMS_ITS | Encounter Summary ---
Author Organization [facility] Address [address] [place] [address] Care Team Providers Care Senior Oracle Adf Developer Name Role Phone Osbaldo Dewitt NP Primary Care Provider [phone] Reason for Visit * Reason Comments Medications Refill Encounter Details Date Type Department Care Team (Late st Contact Info) Description 05/19/[address] 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 To front office spec - please contact patient and schedule PEX. * Telephone Encounter - Laurel Todd RN - 05/19/2024 1553 EDT Medication Requested: Venlafaxine 37.5 mg - 1 tab daily Last OV: 11/11/2023 - pre-op, 09/16/2023 for follow-up Next OV: Visit date not found Last Refill (If required): 01/19/2024 for #90 with 1 refill Pharmacy Of Choice: [facility] pharmacy To PCP - please advise on follow-up needed and refill. documented in this encounter Plan of Treatment Upcoming Encounters Date Type Department Care Team (Late st Contact Info) Description 11/11/2024 15:30 EST Office Visit [facility] Integrative Family Medicine [facility] [address] [place], [place] [phone] Osbaldo Dewitt NP [address] [place] [address] documented as of this encounter Visit Diagnoses Diagnosis Anxiety Anxiety state, unspecified Depression, unspecified depression type documented in this encounter Discontinued Medications Medication Sig Discontinue Reason Start Date End Da te venlafaxine (EFFEXOR-XR) 37.5 mg XR capsuleIndications:Anxie ty,Depression, unspecified depression type TAKE ONE CAPSULE BY MOUTH ONCE DAILY 01/19/2024 05/19/2024 documented as of this encounter Care Teams Senior Oracle Adf Developer Relationship Specialty Start Date End Date Osbaldo Dewitt NP [address] [place] [address] PCP - General 09/01/19 documented as of this encounter
--- OUTSIDE RECORDS SUMMARY | 2024-10-22 13:16 | XMS_ITS | Encounter Summary ---
Author Organization [facility] Address [address] [place] [address] Care Team Providers Care Green Chain Operator Name Role Phone Osbaldo Dewitt NP Primary Care Provider Reason for Visit * Reason Comments Medications Refill Encounter Details Date Type Department Care Team (Late st Contact Info) Description 10/24/2023 Refill [facility] Medicine [facility] [address] [place] [address] Osbaldo Dewitt NP [address] [place] [address] Medications Refill Social History Tobacco [...] in a correction (including now)? 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 [address] [address] Osbaldo Dewitt NP [address] [place] [address] documented as of this encounter Visit Diagnoses Not on filedocumented in this encounter Care Teams Green Chain Operator Relationship Specialty Start Date End Date Osbaldo Dewitt NP [address] [place] [address] PCP - General 09/01/19 documented as of this encounter
--- OUTSIDE RECORDS SUMMARY | 2024-10-22 13:17 | XMS_ITS | Encounter Summary ---
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 [...] [facility] Integrative Family Medicine [address] [phone] Osbaldo Dewitt NP [address] [place] [address] [phone] documented as of this encounter Visit Diagnoses Diagnosis Anxiety Anxiety state, unspecified Depression, unspecified depression type documented in this encounter Discontinued Medications Medication Sig Discontinue Reason Start Date End Da te venlafaxine (EFFEXOR-XR) 37.5 mg XR capsuleIndications:Anxie ty,Depression, unspecified depression type TAKE ONE CAPSULE BY MOUTH EVERY DAY 01/24/2022 01/30/2023 documented as of this encounter Care Teams Optoelectronic Technician Relationship Specialty Start Date End Date Osbaldo Dewitt NP [address] [place] [address] [phone] PCP - General 09/01/19 documented as of this encounter
--- OUTSIDE RECORDS SUMMARY | 2024-10-22 13:17 | XMS_ITS | Encounter Summary ---
Author Organization 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 Pt notified via [employer] that she needs to get labs done. documented in this encounter Plan of Treatment Upcoming Encounters Date Type Department Care Team (Late st Contact Info) Description 11/11/2024 15:30 EST Office Visit [facility] Family [address] [phone] Osbaldo Dewitt NP [address] [place] [address] [phone] documented as of this encounter Visit Diagnoses Not on filedocumented in this encounter Discontinued Medications Medication Sig Discontinue Reason Start Date End Da te hydroCHLOROthiazide (HYDRODIURIL) 25 mg tablet Take 1 Tablet by mouth daily. 11/20/2021 07/24/2022 documented as of this encounter Care Teams Healthcare Economics Consultant Relationship Specialty Start Date End Date Osbaldo Dewitt NP [address] [place] [address] [phone] PCP - General 09/01/19 documented as of this encounter
--- OUTSIDE RECORDS SUMMARY | 2024-10-22 13:17 | XMS_ITS | Encounter Summary ---
Author Organization [facility] Address [address] [place] [address] Care Team Providers Care Dumper Operator Name Role Phone Osbaldo Dewitt NP Primary Care Provider [phone] Unavailable [phone] Reason for Visit * Reason Onset Date Comments Other 02/13/2023 Encounter Details Date Type Department Care Team (Late st Contact Info) Description 02/13/2023 Telephone [facility] [place] [facility] [address] [place] [address] Osbaldo Dewitt NP [address] [place] [address] Other Social History Tobacco Use [...] No 11/11/2022 Housing Stability Vital Sign Answer Hussian e Recorded In the last 12 months, [...] place to sleep or slept in a prison (including now)? 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 Integrative Family Medicine [address] [phone] Osbaldo Dewitt NP [address] [place] [address] [phone] documented as of this encounter Visit Diagnoses Not on filedocumented in this encounter Care Teams Dumper Operator Relationship Specialty Start Date End Date Osbaldo Dewitt NP [address] [place] [address] PCP - General 09/01/[address] [place] [address] [phone] Registered Dietitian Clinical Nutrition 10/21/23 documented as of this encounter
--- OUTSIDE RECORDS SUMMARY | 2024-10-22 13:17 | XMS_ITS | Encounter Summary ---
Author Organization [facility] Address [address] [place] [address] Care Team Providers Care Photographer Still Name Role Phone Osbaldo Dewitt NP Primary Care Provider [phone] Unavailable Reason for Visit * Reason Comments Medications Refill Encounter Details Date Type Department Care Team (Late st Contact Info) Description 02/03/2023 Refill [facility] [place] [facility] [address] [place], [place] [phone] Osbaldo Dewitt NP [address] [place] [address] Medications Refill Social History Tobacco [...] 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 Not on tone e documented as of this encounter Ordered Prescriptions Prescription Sig Dispense Quantity Refills Last Filled Start Date End Date hydroCHLOROthiazid e (HYDRODIURIL) 25 mg tablet TAKE ONE TABLET BY MOUTH ONCE DAILY 90 Tablet 02/03/2023 04/28/2023 documented in this encounter Plan of Treatment Upcoming Encounters Date Type Department Care Team ([facility] Contact Info) Description 11/11/2024 15:30 EST Office Visit [facility] Integrative Family Medicine [address] [phone] Osbaldo Dewitt NP [address] [place] [address] documented as of this encounter Visit Diagnoses Not on filedocumented in this encounter Discontinued Medications Medication Sig Discontinue Reason Start Date End Da te hydroCHLOROthiazide (HYDRODIURIL) 25 mg tablet Take 1 Tablet by mouth daily. 10/28/2022 02/03/2023 documented as of this encounter Care Teams Photographer Still Relationship Specialty Start Date End Date Osbaldo Dewitt FOAM CASTER [address] [place] [address] [id number] PCP - General 09/01/[address] [place] [phone] Registered Dietitian Clinical Nutrition 10/21/23 documented as of this encounter
--- OUTSIDE RECORDS SUMMARY | 2024-10-22 13:17 | XMS_ITS | Encounter Summary ---
Author Organization [facility] Address [address] [place] [address] Care Team Providers Care Distribution Operation Supervisor Name Role Phone Osbaldo Dewitt NP Primary Care Provider [phone] Reason for Visit * Reason Onset Date Comments Results 12/19/2022 Encounter Details Date Type Department Care Team (Late st Contact Info) Description 12/19/2022 Telephone [facility] [place] [facility] [place] [facility] [address] [place] [address] Osbaldo Dewitt NP [address] [place] [address] Results Social History Tobacco Use [...] place to sleep or slept in a detention (including now)? 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 Please push XRs to [facility]. * Telephone Encounter - Osbaldo Dewitt NP [...] Info) Description 11/11/2024 15:30 EST Office Visit [facility] Integrative Family Medicine [address] [address] Osbaldo Dewitt NP [address] [place] [address] documented as of this encounter Visit Diagnoses Not on filedocumented in this encounter Care Teams Distribution Operation Supervisor Relationship Specialty Start Date End Date Osbaldo Dewitt NP [address] [place] [address] PCP - General 09/01/19 documented as of this encounter
--- OUTSIDE RECORDS SUMMARY | 2024-10-22 13:17 | XMS_ITS | Encounter Summary ---
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 tone e documented as of this encounter Plan of Treatment Upcoming Encounters Date Type Department Care Team (Late st Contact Info) Description 11/11/2024 15:30 EST Office Visit [facility] Integrative Family Medicine [facility] [address] [place] [address] Osbaldo Dewitt NP [address] [place] [address] documented as of this encounter Visit Diagnoses Diagnosis Other microscopic hematuria- Primary documented in this encounter Care Teams Car Dropper Relationship Specialty Start Date End Date Osbaldo Dewitt NP [address] [place] [address] PCP - General 09/01/19 documented as of this encounter
--- OUTSIDE RECORDS SUMMARY | 2024-10-22 13:17 | XMS_ITS | Encounter Summary ---
Author Organization [facility] Address [address] [place] [address] Care Team Providers Care Director Selection And Administration Name Role Phone Osbaldo Dewitt NP Primary Care Provider [phone] Unavailable [phone] Reason for Visit * Reason Comments Medications Refill Encounter Details Date Type Department Care Team (Late st Contact Info) Description 12/27/2022 Refill [facility] [place] [facility] [place] 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 Not [...] Upcoming Encounters Date Type Department Care Team ([facility] st Contact Info) Description 11/11/2024 15:30 EST Office Visit [facility] Integrative Family Medicine [address] [phone] Osbaldo Dewitt NP [address] [place] [phone] documented as of this encounter Visit Diagnoses Diagnosis Rosacea documented in this encounter Discontinued Medications Medication Sig Discontinue Reason Start Date End Da te doxycycline (PERIOSTAT) 20 mg tabletIndications:Rosace a TAKE TWO TABLETS BY MOUTH EVERY DAY 12/24/2021 12/30/2022 documented as of this encounter Care Teams Director Selection And Administration Relationship Specialty Start Date End Date Osbaldo Dewitt NP [address] [place] [phone] PCP - General 09/01/[address] [place] [address] [phone] Registered Dietitian Clinical Nutrition 10/21/23 documented as of this encounter
--- OUTSIDE RECORDS SUMMARY | 2024-10-22 13:17 | XMS_ITS | Encounter Summary ---
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
--- OUTSIDE RECORDS SUMMARY | 2024-10-22 13:17 | XMS_ITS | Encounter Summary ---
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
--- OUTSIDE RECORDS SUMMARY | 2024-10-22 13:17 | XMS_ITS | Encounter Summary ---
Author Organization [facility] Address [address] [place] [address] Care Team Providers Care Airline Attendant Name Role Phone Osbaldo Dewitt NP Primary Care Provider [phone] Unavailable [phone] Reason for Visit * Reason Comments Medications Refill Encounter Details Date Type Department Care Team (Late st Contact Info) Description 10/24/2022 Refill [facility] [place] [facility] [address] [place], [place] [phone] Osbaldo Dewitt NP [address] [place] [address] Medications Refill Social History Tobacco [...] 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 file Not [...] 11/11/2024 15:30 EST Office Visit [facility] [place] [address] Osbaldo Dewitt NP [address] [place], [place] [address] documented as of this encounter Visit Diagnoses Diagnosis Gastroesophageal reflux disease Esophageal reflux documented in this encounter Discontinued Medications Medication Sig Discontinue Reason Start Date End Da te omeprazole (PRILOSEC) 20 mg capsuleIndications:Gastr oesophageal reflux disease TAKE ONE CAPSULE BY MOUTH AT BEDTIME 10/15/2021 10/25/2022 documented as of this encounter Care Teams Airline Attendant Relationship Specialty Start Date End Date Osbaldo Dewitt NP [address] [place] [address] PCP - General 09/01/[address] [place] [address] Registered Dietitian Clinical Nutrition 10/21/23 documented as of this encounter
--- OUTSIDE RECORDS SUMMARY | 2024-10-22 13:17 | XMS_ITS | Encounter Summary ---
Author Organization [facility] Address [address] [place] [address] Care Team Providers Care Ampoule Washing Machine Operator Name Role Phone Osbaldo Dewitt NP Primary Care Provider [phone] Reason for Visit * Reason Onset Date Comments Dizziness 03/05/2022 Encounter Details Date Type Department Care Team (Late st Contact Info) Description 03/05/2022 Telephone [facility] [place] [facility] [address] [place] [address] Osbaldo Dewitt NP [address] [place] [address] Dizziness Social History Tobacco Use [...] 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
--- OUTSIDE RECORDS SUMMARY | 2024-10-22 13:17 | XMS_ITS | Encounter Summary ---
Author Organization 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 per patient request. documented in this encounter Plan of Treatment Upcoming Encounters Date Type Department Care Team (Late st Contact Info) Description 11/11/2024 15:30 EST Office Visit [facility] Family [address] [place] [phone] Osbaldo Dewitt NP [address] [place], [place] [phone] documented as of this encounter Visit Diagnoses Diagnosis Encounter for annual physical exam- Primary Primary hypertension Unspecified essential hypertension Pure hypercholesterolemia documented in this encounter Care Teams Travel Cota Relationship Specialty Start Date End Date Osbaldo Dewitt NP [address] [place], [place] [phone] PCP - General 09/01/19 documented as of this encounter
--- OUTSIDE RECORDS SUMMARY | 2024-10-22 13:17 | XMS_ITS | Encounter Summary ---
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 [...] Info) Description 11/11/2024 15:30 EST Office Visit [address] [phone] Osbaldo Dewitt NP [address] [place], [place] [phone] documented as of this encounter Visit Diagnoses Diagnosis Rosacea- Primary documented in this encounter Discontinued Medications Medication Sig Discontinue Reason Start Date End Da te doxycycline (PERIOSTAT) 20 mg tabletIndications:Rosace a TAKE TWO TABLETS BY MOUTH EVERY DAY 12/14/2020 12/24/2021 documented as of this encounter Care Teams Jacquard Card Lacer Relationship Specialty Start Date End Date Osbaldo Dewitt NP [address] [place] [address] PCP - General 09/01/19 documented as of this encounter
--- OUTSIDE RECORDS SUMMARY | 2024-10-22 13:17 | XMS_ITS | Encounter Summary ---
Author Organization [facility] Address [address] [place] [address] Care Team Providers Care Tow Motor Operator Name Role Phone Osbaldo Dewitt NP Primary Care Provider [phone] Reason for Referral * PT/OT/ST (Routine) - Closed Specialty Diagnoses / Procedures [facility] Referred To Contact Diagnoses BPPV (benign paroxysmal positional vertigo), right Nava Garnica PA-C Phone: tel: fax: [facility] [address] [place] [address] Phone: tel: fax: Referral ID Status Reason Start Date Expiration Date V isits Requested Visits Authorized [id number] Closed Specialty Services Required 05/07/2021 1 1 Question Answer Reason for Request: Suspect R sided BPPV, please eval and treat. 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 [facility] Patient Instructions Benign Paroxysmal Positional Vertigo [...] Where can you learn more? Go to [email or web address] or log into your [employer] account at [email or web address] Enter P372 in the search box to learn more about Benign Paroxysmal Positional Vertigo (BPPV): CareInstructions. Current as of: January 19, 2020?Content Version: 12.6 ?? [employer]. Care instructions adapted under license by [facility]. If you have questions about a medical condition or this instruction, always ask your healthcare professional. [employer] disclaims any warranty or liability for your [...] RN or in discussion with available provider (SALES PRODUCT MANAGER's and CCA's can defer to Charge Nurse to complete triage when appropriate) PCP: Osbaldo Dewitt * Nava Garnica PA-C - 05/07/2021 1200 EDT [facility] Chief Complaint(s): Chief Complaint Patient [...] Info) Description 11/11/2024 15:30 EST Office Visit [facility] Integrative Family Medicine [address] [phone] Osbaldo Dewitt, SG [address] [place] [address] Scheduled Referrals Name Type Priority [...] POINT OF CARE TEST ORDERABLES Final Result [facility] POINT OF CARE documented in this encounter Visit Diagnoses Diagnosis BPPV (benign paroxysmal positional vertigo), right- Primary Asymptomatic microscopic hematuria documented in this encounter Discontinued Medications Medication Sig Discontinue Reason Start Date End Da te clobetasoL (TEMOVATE) 0.05 % creamIndications:Lichen sclerosus et atrophicus Apply topically once a week prn Error 11/15/2020 05/07/2021 documented as of this encounter Care Teams Tow Motor Operator Relationship Specialty Start Date End Date Osbaldo Dewitt NP [address] [place] [address] PCP - General 09/01/19 documented as of this encounter
--- OUTSIDE RECORDS SUMMARY | 2024-10-22 13:17 | XMS_ITS | Encounter Summary ---
Author Organization [facility] Address [address] [place] [address] Care Team Providers Care Stone Repairer Name Role Phone Osbaldo Dewitt NP Primary Care Provider [phone] Reason for Referral * Radiology Services (Routine/Next Available) - Authorization Not Required Specialty Diagnoses / Procedures Referred By Chance le Referred To Contact Diagnoses Encounter for screening mammogram for malignant neoplasm of breast Procedures MA BREAST SCREENING JULIAN BILATERAL Osbaldo Dewitt NP Phone: tel: fax: [place] Referral ID Status Reason Start Date Expiration Date Visits Requested Visits Authorized [id number] Authorization Not Required 11/22/2021 1 1 Reason for Visit * Radiology Services (Routine/Next Available) - Authorization Not Required Specialty Diagnoses / Procedures Referred By Chance le Referred To Contact Diagnoses Encounter for screening mammogram for malignant neoplasm of breast Procedures MA BREAST SCREENING JULIAN BILATERAL Osbaldo Dewitt NP Phone: tel: fax: [place] Referral ID Status Reason Start Date Expiration Date Visits Requested Visits Authorized [id number] Authorization Not Required 11/22/2021 1 1 Encounter Details Date Type Department Care Team (Latest Contact Info) Description 03/01/2022 7:48 EDT - 03/01/2022 23:59 EDT Hospital Encounter [facility] [place] [facility] [address] [place] [address] Encounter for screening mammogram for malignant neoplasm [...] 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
--- OUTSIDE RECORDS SUMMARY | 2024-10-22 13:17 | XMS_ITS | Encounter Summary ---
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 Not [...] [facility] Family Medicine [facility] [address] [place], [place] [phone] Osbaldo Dewitt NP [address] [place] [address] documented as of this encounter Visit Diagnoses Diagnosis Anxiety Anxiety state, unspecified Depression, unspecified depression type documented in this encounter Discontinued Medications Medication Sig Discontinue Reason Start Date End Da te venlafaxine (EFFEXOR-XR) 37.5 mg XR capsuleIndications:Anxie ty,Depression, unspecified depression type TAKE ONE CAPSULE BY MOUTH EVERY DAY 01/15/2021 01/24/2022 documented as of this encounter Care Teams Principal Mechanical Engineer Relationship Specialty Start Date End Date Osbaldo Dewitt NP [address] [place] [address] PCP - General 09/01/19 documented as of this encounter
--- OUTSIDE RECORDS SUMMARY | 2024-10-22 13:17 | XMS_ITS | Encounter Summary ---
Author Organization [facility] Address [address] [place] [address] Care Team Providers Care Net Developer Consultant Name Role Phone Osbaldo Dewitt NP Primary Care Provider [phone] Reason for Visit * Reason Comments Follow-up EC, vertigo, hematur ia/see new UA results Encounter Details Date Type Department Care Team (Late st Contact Info) Description 05/31/2021 9:00 EDT Telemedicine [facility] [address] [place] [address] Osbaldo Dewitt, INTERACTIVE MARKETING STRATEGIST [address] [place] [address] Vertigo (Primary Dx); Asymptomatic microscopic [...] 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 [facility] Video Visit Today's visit was provided through [...] EST Office Visit [facility] Family [address] [address] Osbaldo Dewitt NP [address] [place], [place] [phone] documented as of this encounter Visit Diagnoses Diagnosis Vertigo- Primary Dizziness and giddiness Asymptomatic microscopic hematuria documented in this encounter Care Teams Net Developer Consultant Relationship Specialty Start Date End Date Osbaldo Dewitt NP [address] [place] [address] PCP - General 09/01/19 documented as of this encounter
--- OUTSIDE RECORDS SUMMARY | 2024-10-22 13:17 | XMS_ITS | Encounter Summary ---
Author Organization [facility] Address [address] [place] [address] Care Team Providers Care Medical Record Administrator Name Role Phone Osbaldo Dewitt NP Primary Care Provider [phone] Unavailable [phone] Reason for Visit * Reason Onset Date Comments Labs Only 09/12/2022 Encounter Details Date Type Department Care Team (Late st Contact Info) Description 09/12/2022 Telephone [facility] Family Medicine [facility] [address] [place] [address] Osbaldo Dewitt NP [address] [place] [address] Labs Only Social History Tobacco [...] 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. * Telephone Encounter - Alee Tyler - 09/12/2022 0946 EST Pt called to set up PEX (11/18/22) - Would like labs set up prior to her appt - PLEASE SEND TO [facility]. Let me know when done and i'll call out to her. documented in this encounter Plan of Treatment Upcoming Encounters Date Type Department Care Team (Late st Contact Info) Description 11/11/2024 15:30 EST Office Visit [facility] Integrative Family Medicine [address] [address] Osbaldo Dewitt NP [address] [place] [phone] documented as of this encounter Visit Diagnoses Not on filedocumented in this encounter Care Teams Medical Record Administrator Relationship Specialty Start Date End Date Osbaldo Dewitt NP [address] [place] [address] PCP - General 09/01/[address] [place] [id number] Registered Dietitian Clinical Nutrition 10/21/23 documented as of this encounter
--- OUTSIDE RECORDS SUMMARY | 2024-10-22 13:17 | XMS_ITS | Encounter Summary ---
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 Reorder 01/29/2022 documented as of this encounter Care Teams Personalized Living Manager Nurse Relationship Specialty Start Date End Date Osbaldo Dewitt NP [address] [place] [address] PCP - General 09/01/19 documented as of this encounter
--- OUTSIDE RECORDS SUMMARY | 2024-10-22 13:17 | XMS_ITS | Encounter Summary ---
Author Organization [facility] Address [address] [place] [address] Care Team Providers Care Derrick Builder Name Role Phone Osbaldo Dewitt NP Primary Care Provider [phone] Encounter Details Date Type Department Care Team (Late st Contact Info) Description 05/22/2021 Results Only 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 Not on tone e documented as of this encounter Plan of Treatment Upcoming Encounters Date Type Department Care Team (Late st Contact Info) Description 11/11/2024 15:30 EST Office Visit [facility] Integrative Family Medicine [facility] [address] [place] [address] Osbaldo Dewitt NP [address] [place] [address] documented as of this encounter Procedures Procedure Name Priority Date/Time Associated Diagnosis Comments URINALYSIS/COMPLETE - [facility] Routine 05/22/2021 10:23 EDT documented in this encounter Results * URINALYSIS/COMPLETE - [facility] (05/22/2021 10:23 EDT) URINE APPEARANCE - [facility] Clear CLEAR 05/22/2021 12:22 [facility] URINE BACTERIA - [facility] NEG 05/22/2021 13:17 [facility] URINE BILIRUBIN - [facility] - [facility] Negative NEGATIVE 05/22/2021 12:22 [facility] URINE BLOOD - [facility] Trace NEG 05/22/2021 12:22 [facility] URINE COLOR - [facility] Yellow YELLOW 05/22/2021 12:22 [facility] URINE GLUCOSE - [facility] - [facility] Negative NEGATIVE 05/22/2021 12:22 [facility] URINE KETONE - [facility] Negative NEGATIVE 05/22/2021 12:22 [facility] URINE LEUK ESTERASE - [facility] Negative NEG 05/22/2021 12:22 [facility] URINE NITRITE - [facility] - [facility] Negative NEG 05/22/2021 12:22 [facility] URINE PH - [facility] 7.0 4.0 - 8.0 12:22 [facility] URINE PROTEIN - [facility] - [facility] Negative NEG 05/22/2021 12:22 [facility] URINE RBC - [facility] RARE rbc/hpf 05/22/20 13:17 [facility] URCULTIF+? - [facility] No Culture Indicated 05/22/2021 13:17 [facility] Comment:CULTURE IS NOT INDIC ATED, BASED ON RESULTS OF THE URINALYSIS URINE SPECIFIC GRAVITY - [facility] 1.010 1.001 - 1.035 05/22/2021 12:22 [facility] URINE SQUAMOUS CELLS - [facility] RARE NEG #/hpf 05/22/2021 13:17 [facility] URINE UROBILINOGEN - [facility] - [facility] 0.2 0.2 - 1.0 05/22/2021 12:22 [facility] URINE WBC - [facility] NEG NEG wbc/hpf 021 13:17 EDT [facility] 05/22/2021 10:2 3 EDT 05/22/2021 10:23 EDT Narrative [facility] - 05/22/2021 13:17 EDT Does PT Have a Latex Allergy? NO us Osbaldo Dewitt NP CHEMISTRY & BLOOD GAS ORDERABL ES Final Result [facility] [address] [place] [address] documented in this encounter Visit Diagnoses Not on filedocumented in this encounter Care Teams Derrick Builder Relationship Specialty Start Date End Date Osbaldo Dewitt, SG [address] [place] [address] PCP - General 09/01/19 documented as of this encounter
--- OUTSIDE RECORDS SUMMARY | 2024-10-22 13:17 | XMS_ITS | Encounter Summary ---
Author Organization [facility] Address [address] [place] [address] Care Team Providers Care Primary School Teacher Librarian Name Role Phone Osbaldo Dewitt NP Primary Care Provider [phone] Reason for Visit * Reason Onset Date Comments Referral Request 12/17/2022 Encounter Details Date Type Department Care Team (Late st Contact Info) Description 12/17/2022 Telephone [facility] [address] [place] [address] Osbaldo Dewitt NP [address] [place] [address] Referral Request Social History Tobacco [...] 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
--- OUTSIDE RECORDS SUMMARY | 2024-10-22 13:17 | XMS_ITS | Encounter Summary ---
Author Organization [facility] Address [address] [place] [address] Care Team Providers Care Project Management Specialist Name Role Phone Osbaldo Dewitt NP Primary Care Provider [phone] Reason for Referral * Consult (Routine/Next Available) - Closed Specialty Diagnoses / Procedures Referred By Chance le Referred To Contact Family Medicine Diagnoses Obesity (BMI 35.0-39.9 without comorbidity) Osbaldo Dewitt NP Phone: tel: fax: [facility] Integrative Family Medicine [address] [address] Phone: tel: fax: Referral ID Status Reason Start Date Expiration Date V isits Requested Visits Authorized [id number] Closed Specialty Services Required 11/18/2022 1 1 Question Answer Nutrition/certified adaptive physical educator/Education: Wellness coaching, Weight loss * PT/OT/ST (Routine/Next Available) - Closed Specialty Diagnoses / Procedures Referred By Chance le Referred To Contact Diagnoses Chronic pain of left knee Osbaldo Dewitt NP Phone: tel: fax: Referral ID Status Reason Start Date Expiration Date V isits Requested Visits Authorized [id number] Closed Specialty Services Required 11/18/2022 1 1 Question Answer Reason for Request: left knee pain SITE [facility] Physical [facility] - [facility] * Consult (Routine/Next Available) - Closed Specialty Diagnoses / Procedures Referred By Contmorgan t Referred To Contact Diagnoses Chronic pain of left knee Chronic pain of both shoulders Osbaldo Dewitt NP Phone: tel: fax: [address] [place] [address] Phone: tel: Referral ID Status Reason Start Date Expiration Date V isits Requested Visits Authorized [id number] Closed Specialty Services Required 11/18/2022 1 1 Question Answer Reason for Request: left knee pain and bilateral shoulder knee pain SITE [facility] Orthopedics Reason for Visit * Reason Comments Annual Exam Concerns: left knee pain, bilat shoulder pain Encounter Details Date Type Department Care Team (Late st Contact Info) Description 11/18/2022 14:[address] 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 Patient is postmenopausal. Last [...] Date ??? GASTRIC FUNDOPLICATION 2009 [place]fundop[place] [facility] Family History Problem Relation [...] 35.0-39.9 without comorbidity) - AMB CONS/FOLLOW UP APPLICATIONS SYSTEM ANALYST, AUTOMATIC WHEEL LINE OPERATOR AND NUTRITION; Future Need for vaccination Comments: Risk/benefits of vaccination reviewed. Orders: - TDAP (BOOSTRIX) VACCINE =>7YO IM Other orders - atenoloL (TENORMIN) 25 mg tablet; Take 1 Tablet by mouth daily. Blood pressure and BMI goals reviewed. Immunizations reviewed, Tdap given. Fasting lipid and blood glucose reviewed. Mammogram screening ordered. Screening colonoscopy due 2025. DEXA due age 64. Pap/HPV screening due 0562-3254 Discussed safety prevention measures, healthy diet and exercise goals. Follow up: Return for hypertension. Osbaldo Dewitt NP Speech recognition software was used to complete this progress note. Typographical errors may be present. documented in this encounter Plan of Treatment Upcoming Encounters Date Type Department Care Team (Late st Contact Info) Description 11/11/2024 15:30 EST Office Visit [facility] Medicine [address] [phone] Osbaldo Dewitt NP [address] [place], [place] [address] Scheduled Referrals Name Type Priority Associated Diagnoses Order Schedule AMB CONS/FOLLOW UP ORTHOPEDICS - EXTERNAL Outpatient Referral Routine/Next Available Chronic pain of left knee Chronic pain of both shoulders Expected: 12/16/2022 (Approximate), Expires: 11/18/2023 AMB CONS/FOLLOW UP PHYSICAL THERAPY - OUTSIDE OF NETWORK Outpatient Referral Routine/Next Available Chronic pain of left knee Expected: 11/25/2022 (Approximate), Expires: 11/18/2023 AMB CONS/FOLLOW UP APPLICATIONS SYSTEM ANALYST, AUTOMATIC WHEEL LINE OPERATOR AND NUTRITION Outpatient Referral Routine/Next Available Obesity [...] 23 documented in this encounter Care Teams Project Management Specialist Relationship Specialty Start Date End Date Osbaldo Dewitt NP [address] [place] [phone] PCP - General 09/01/19 documented as of this encounter
--- OUTSIDE RECORDS SUMMARY | 2024-10-22 13:17 | XMS_ITS | Encounter Summary ---
Author Organization [facility] Address [address] [place] [address] Care Team Providers Care Mattress And Boxsprings Supervisor Name Role Phone Osbaldo Dewitt FASHION STYLIST Primary Care Provider [phone] Reason for Visit * Reason Comments Hypertension Hyperlipidemia Encounter Details Date Type Department Care Team (Latest Contact Info) Description 08/13/2021 8:40 EST Office Visit [facility] [address] [place] [address] Osbaldo Dewitt NP [address] [place] [address] Primary hypertension (Primary Dx); Need [...] 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 [facility] Primary Care Subjective: Chief Complaint(s): Hypertension and Hyperlipidemia HPI: The history is provided by the patient. No languages and literature instructor was used. Hypertension Managed with??hydrochlorothiazide/losarten 25 mg/100 [...] Info) Description 11/11/2024 15:30 [place] [address] Osbaldo Dewitt NP [address] [place], [place] [phone] documented as of this encounter Visit Diagnoses [...] 08/13/2021 documented in this encounter Care Teams Mattress And Boxsprings Supervisor Relationship Specialty Start Date End Date Osbaldo Dewitt NP [address] [place], [place] [phone] PCP - General 09/01/19 documented as of this encounter
--- OUTSIDE RECORDS SUMMARY | 2024-10-22 13:17 | XMS_ITS | Encounter Summary ---
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
--- OUTSIDE RECORDS SUMMARY | 2024-10-22 13:17 | XMS_ITS | Encounter Summary ---
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 GARCE WRIGHT, RN documented in this encounter Plan of Treatment Upcoming Encounters Date Type Department Care Team (Late st Contact Info) Description 11/11/2024 15:30 EST Office Visit [facility] Integrative Family Medicine [address] [phone] Osbaldo Dewitt NP [address] [place] [phone] documented as of this encounter Visit Diagnoses Not on filedocumented in this encounter Discontinued Medications Medication Sig Discontinue Reason Start Date End Da te atenolol (TENORMIN) 25 mg tablet Take 1 Tab by mouth daily. 08/22/2021 documented as of this encounter Care Teams Glove Factory Sewer Relationship Specialty Start Date End Date Osbaldo Dewitt NP [address] [place] [phone] PCP - General 09/01/19 documented as of this encounter
--- OUTSIDE RECORDS SUMMARY | 2024-10-22 13:17 | XMS_ITS | Encounter Summary ---
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
--- OUTSIDE RECORDS SUMMARY | 2024-10-22 13:17 | XMS_ITS | Encounter Summary ---
Author Organization [facility] Address [address] [place] [address] Care Team Providers Care Fusion Operator Name Role Phone Osbaldo Dewitt NP Primary Care Provider [phone] Reason for Referral * Consult (Routine/Next Available) - Specialty Report Received Specialty Diagnoses / Procedures Referred By Chance le Referred To Contact Diagnoses Chronic pain of both shoulders Osbaldo Dewitt NP Phone: tel: fax: Referral ID Status Reason Start Date Expiration Date Visits Requested Visits Authorized [id number] Specialty Report Received Specialty Services Required 12/26/2022 1 1 Question Answer Reason for Request: bilateral shoulder OA; seeking second opinion for shoulder replacement surgery; seen at [facility] Reason for Visit * Reason Comments Referral Request Rheumatology Other Ortho suggests bilat shoulder replacements/sciatica is better with PATIENT/knee xray shows spurring Encounter Details Date Type Department Care Team (Latest Contact Info) Description 12/26/2022 11:00 EDT Telemedicine [facility] Family Medicine [address] [phone] Osbaldo Dewitt NP [address] [place] [address] Polyarthropathy (Primary Dx); Elevated fasting glucose; Right [...] slept in a residential (including now)? 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 [facility] Video Visit Today's visit was provided through [...] left knee. Shehas been seeing orthopedics at [facility] as well as physical therapy. Her PT has recommended discussing rheumatology referral based on her polyarthralgias. Seen by [facility] orthopedics, Dr. Patel 12/25/2022 - for severe [...] shoulders Comments: Referral for second opinion at [facility] sent. Orders: - AMB CONS/FOLLOW UP ORTHOPEDICS [...] Visit [facility] Integrative Family Medicine [facility] [address] [place], [place] [phone] Osbaldo Dewitt NP [address] [place] [address] Scheduled Referrals Name Type Priority [...] region documented in this encounter Care Teams Fusion Operator Relationship Specialty Start Date End Date Osbaldo Dewitt NP [address] [place] [address] PCP - General 09/01/19 documented as of this encounter
--- OUTSIDE RECORDS SUMMARY | 2024-10-22 13:17 | XMS_ITS | Encounter Summary ---
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 Reorder 10/28/2022 10/28/2022 documented as of this encounter Care Teams Senior Data Integration Developer Relationship Specialty Start Date End Date Osbaldo Dewitt NP [address] [place] [address] PCP - General 09/01/19 documented as of this encounter
--- OUTSIDE RECORDS SUMMARY | 2024-10-22 13:17 | XMS_ITS | Encounter Summary ---
Author Organization 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 [...] Info) Description 11/11/2024 15:30 EST Office Visit [facility] [address] [place], [place] [address] Osbaldo Dewitt NP [address] [place] [address] documented as of this encounter Visit Diagnoses Diagnosis Gastroesophageal reflux disease- Primary Esophageal reflux documented in this encounter Discontinued Medications Medication Sig Discontinue Reason Start Date End Da te omeprazole (PRILOSEC) 20 mg capsuleIndications:Gastr oesophageal reflux disease TAKE ONE CAPSULE BY MOUTH AT BEDTIME 10/16/2020 10/15/2021 documented as of this encounter Care Teams Patient Care Technician Relationship Specialty Start Date End Date Osbaldo Dewitt NP [address] [place] [address] PCP - General 09/01/19 documented as of this encounter
--- OUTSIDE RECORDS SUMMARY | 2024-10-22 13:17 | XMS_ITS | Encounter Summary ---
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 [...] [facility] Integrative Family Medicine [address] [address] Osbaldo Dewitt NP [address] [place], [place] [phone] documented as of this encounter Visit Diagnoses Diagnosis Primary hypertension- Primary Unspecified essential hypertension documented in this encounter Discontinued Medications Medication Sig Discontinue Reason Start Date End Da te losartan (COZAAR) 100 mg tabletIndications:Primary hypertension TAKE ONE TABLET BY MOUTH EVERY DAY 09/05/2022 12/17/2022 documented as of this encounter Care Teams Php Mysql Developer Relationship Specialty Start Date End Date Osbaldo Dewitt NP [address] [place] [address] PCP - General 09/01/19 documented as of this encounter
--- OUTSIDE RECORDS SUMMARY | 2024-10-22 13:17 | XMS_ITS | Encounter Summary ---
Author Organization [facility] Address [address] [place] [address] Care Team Providers Care Compotype Operator Name Role Phone Osbaldo Dewitt NP Primary Care Provider [phone] Unavailable [phone] Reason for Visit * Reason Comments Other Encounter Details Date Type Department Care Team (Late st Contact Info) Description 05/27/2022 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 [...] Upcoming Encounters Date Type Department Care Team ([facility] st Contact Info) Description 11/11/2024 15:30 EST Office Visit [facility] Family [address] [address] Osbaldo Dewitt NP [address] [place] [phone] documented as of this encounter Visit Diagnoses Diagnosis Primary hypertension- Primary Unspecified essential hypertension Pure hypercholesterolemia documented in this encounter Discontinued Medications Medication Sig Discontinue Reason Start Date End Da te losartan (COZAAR) 100 mg tablet Take 1 Tablet by mouth daily. 11/20/2021 05/27/2022 documented as of this encounter Care Teams Compotype Operator Relationship Specialty Start Date End Date Osbaldo Dewitt NP [address] [place] [phone] PCP - General 09/01/[address] [place] [address] Registered Dietitian Clinical Nutrition 10/21/23 documented as of this encounter
--- OUTSIDE RECORDS SUMMARY | 2024-10-22 13:17 | XMS_ITS | Encounter Summary ---
Author Organization [facility] Address [address] [place] [address] Care Team Providers Care Medical Massage Therapist Name Role Phone Osbaldo Dewitt NP Primary Care Provider [phone] Unavailable [phone] Reason for Visit * Reason Comments Medications Refill Encounter Details Date Type Department Care Team (Late st Contact Info) Description 09/04/2022 Refill [facility] [place] [facility] Family Medicine [facility] [address] [place], [place] [phone] Osbaldo Dewitt NP [address] [place] [address] [...] 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 [...] Upcoming Encounters Date Type Department Care Team ([facility] st Contact Info) Description 11/11/2024 15:30 EST Office Visit [facility] Integrative Family Medicine [address] [address] Osbaldo Dewitt NP [address] [place] [address] documented as of this encounter Visit [...] as of this encounter Care Teams Medical Massage Therapist Relationship Specialty Start Date End Date Osbaldo Dewitt NP [address] [place] [phone] PCP - General 09/01/[address] [place] [address] Registered Dietitian Clinical Nutrition 10/21/23 documented as of this encounter
--- OUTSIDE RECORDS SUMMARY | 2024-10-22 13:18 | XMS_ITS | Encounter Summary ---
Author Organization 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 Transcribed Date/Time: 12/15/2020 (151) ? Procurement Director: ? Printed Date/Time: 12/15/2020 (2416) ? PAGE 1 ? Signed Report ? [...] O MD CC: Transcribed Date/Time: 12/15/2020 (1513) Procurement Director: Printed Date/Time: 12/15/2020 (3174) PAGE 1 Signed Report us Osbaldo Dewitt BARREL BURNER IMG MAMMOGRAPHY ORDERABLES Fin al Result * [...] CC: ? Transcribed Date/Time: 12/15/2020 (0836) ? Procurement Director: ? Printed Date/Time: 12/15/2020 (0837) ? PAGE [...] Aguirre MD CC: Transcribed Date/Time: 12/15/2020 (0836) Procurement Director: Printed Date/Time: 12/15/2020 (0837) PAGE 1 Signed Report us Osbaldo Dewitt NP IMG DIAGNOSTIC IMAGING ORDERAB LES Final Result documented in this encounter Visit Diagnoses Not on filedocumented in this encounter Care Teams Manager Local Relationship Specialty Start Date End Date Osbaldo Dewitt NP [address] [place] [address] PCP - General 09/01/[address] [place] [address] Registered Dietitian Clinical Nutrition 10/21/23 documented as of this encounter
--- OUTSIDE RECORDS SUMMARY | 2024-10-22 13:18 | XMS_ITS | Encounter Summary ---
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 [...] Info) Description 11/11/2024 15:30 EST Office Visit [facility] Integrative Family Medicine [address] [phone] Osbaldo Dewitt NP [address] [place] [phone] documented as of this encounter Visit Diagnoses Diagnosis Essential hypertension- Primary Unspecified essential hypertension documented in this encounter Discontinued Medications Medication Sig Discontinue Reason Start Date End Da te losartan-hydrochlorothia zide (HYZAAR) 100-25 mg per tablet TAKE ONE TABLET BY MOUTH EVERY DAY 05/12/2020 12/13/2020 documented as of this encounter Care Teams Assistant Store Manager Relationship Specialty Start Date End Date Osbaldo Dewitt NP [address] [place] [phone] PCP - General 09/01/19 documented as of this encounter
--- OUTSIDE RECORDS SUMMARY | 2024-10-22 13:18 | XMS_ITS | Encounter Summary ---
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 [...] Info) Description 11/11/2024 15:30 EST Office Visit [address] [address] Osbaldo Dewitt NP [address] [place] [address] documented as of this encounter Visit Diagnoses Diagnosis Essential hypertension- Primary Unspecified essential hypertension documented in this encounter Discontinued Medications Medication Sig Discontinue Reason Start Date End Da te losartan-hydrochlorothiaz juanita (HYZAAR) 100-25 mg per tabletIndications:Essenti al hypertension TAKE ONE TABLET BY MOUTH EVERY DAY 12/13/2020 04/16/2021 documented as of this encounter Care Teams Dampproofer Relationship Specialty Start Date End Date Osbaldo Dewitt NP [address] [place] [address] PCP - General 09/01/19 documented as of this encounter
--- OUTSIDE RECORDS SUMMARY | 2024-10-22 13:18 | XMS_ITS | Encounter Summary ---
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
--- OUTSIDE RECORDS SUMMARY | 2024-10-22 13:18 | XMS_ITS | Encounter Summary ---
Author Organization [facility] Address [address] [place] [address] Care Team Providers Care Poultry Trimmer Name Role Phone Unknown, Provider Primary Care Provider Unava ilable Encounter Details Date Type Department Care Team (Late st Contact Info) Description 11/13/[address] [facility] Radiology Results [address] [place] [address] Osbaldo Dewitt NP [address] [place], [place] [phone] Social History Tobacco Use Types Packs/Day Years [...] Visit [facility] Integrative Family [facility] [address] [place], [place] [address] Osbaldo Dewitt NP [address] [place], [place] [phone] documented as of this encounter Visit Diagnoses Not on filedocumented in this encounter Care Teams Poultry Trimmer Relationship Specialty Start Date End Date Unknown, Provider, PCP - General 07/18/14 08/31/19 documented as of this encounter
--- OUTSIDE RECORDS SUMMARY | 2024-10-22 13:18 | XMS_ITS | Encounter Summary ---
Author Organization [facility] Address [address] [place] [address] Care Team Providers Care Communications Analyst Name Role Phone Osbaldo Dewitt NP Primary Care Provider [phone] Reason for Visit * Reason Comments Other BP and cardiac desiree rns, has not been taking BPs yet at home Encounter Details Date Type Department Care Team (Latest Contact Info) Description 01/25/2021 8:30 EDT Telemedicine [facility] Family Medicine [facility] [address] [place] [address] Osbaldo Dewitt NP [address] [place] [address] Chest pain, unspecified type (Primary [...] 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 [facility] Video Visit Today's visit was [...] HTN, HLD The 10-year ASCVD risk score (Jefferson ISAIAH Jr., et al., 2013) is: 4% [...] Info) Description 11/11/2024 15:30 EST Office Visit [facility] Integrative Family Medicine [address] [phone] Osbaldo Dewitt NP [address] [place] [phone] documented as of this encounter Visit Diagnoses Diagnosis Chest pain, unspecified type- Primary Essential hypertension Unspecified essential hypertension Pure hypercholesterolemia documented in this encounter Historical Medications * This list may reflect changes made after this encounter. cetirizine (ZYRTEC) 10 mg tablet Take 1 Tablet by mouth daily. 11/11/2023 added in this encounter Care Teams Communications Analyst Relationship Specialty Start Date End Date Osbaldo Dewitt NP [address] [place] [phone] PCP - General 09/01/19 documented as of this encounter
--- OUTSIDE RECORDS SUMMARY | 2024-10-22 13:18 | XMS_ITS | Encounter Summary ---
Author Organization [facility] Address [address] [place] [address] Care Team Providers Care Demolitionist Name Role Phone Osbaldo Dewitt NP Primary Care Provider [phone] Reason for Visit * Reason Comments Other Encounter Details Date Type Department Care Team (Late st Contact Info) Description 09/28/2019 Refill [facility] Integrative Family Medicine [address] [address] Osbaldo Dewitt NP [address] [place] [address] Other Social History Tobacco Use [...] Description 11/11/2024 15:30 EST Office Visit [facility] Family Medicine [address] [address] Osbaldo Dewitt NP [address] [place] [address] documented as of this encounter Visit Diagnoses Diagnosis Gastroesophageal reflux disease, esophagitis presence not specified- Primary documented in this encounter Care Teams Demolitionist Relationship Specialty Start Date End Date Osbaldo Dewitt NP [address] [place] [address] PCP - General 09/01/19 documented as of this encounter
--- OUTSIDE RECORDS SUMMARY | 2024-10-22 13:18 | XMS_ITS | Encounter Summary ---
Author Organization [facility] Address [address] [place] [address] Care Team Providers Care Potato Chip Frier Name Role Phone Unknown, Provider Primary Care Provider Unava ilable Encounter Details Date Type Department Care Team (Late st Contact Info) Description 11/16/2018 Historical Results Only [facility] Radiology Results [address] [place] [address] Osbaldo Dewitt NP [address] [place], [place] [address] Social History Tobacco Use Types Packs/Day Years [...] [facility] Integrative Family [facility] [address] [place], [place] [address] Osbaldo Dewitt NP [address] [place], [place] [phone] documented as of this encounter Procedures Procedure [...] IN OTHER VENDOR SYSTEM 11/17/2018 ?Reported By: Sunyn Arnold MD ? CC: ? Transcribed Date/Time: 11/16/2018 (1422) ? Dam Operator: ? Printed Date/Time: 03/29/2019 (1731) ? PAGE 1 ? Signed Report ? [...] Arnold MD CC: Transcribed Date/Time: 11/16/2018 (142) Dam Operator: Printed Date/Time: 03/29/2019 (9277) PAGE 1 Signed Report us Osbaldo Dewitt NP IMG MAMMOGRAPHY ORDERABLES Fin al Result documented in this encounter Visit Diagnoses Not on filedocumented in this encounter Care Teams Potato Chip Frier Relationship Specialty Start Date End Date Unknown, Provider, PCP - General 07/18/14 08/31/19 documented as of this encounter
--- OUTSIDE RECORDS SUMMARY | 2024-10-22 13:18 | XMS_ITS | Encounter Summary ---
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
--- OUTSIDE RECORDS SUMMARY | 2024-10-22 13:18 | XMS_ITS | Encounter Summary ---
Author Organization [facility] Address [address] [place] [address] Care Team Providers Care Room Cleaner Name Role Phone Unknown, Provider Primary Care Provider Unava ilable Encounter Details Date Type Department Care Team (Late st Contact Info) Description 04/20/2019 Historical Results Only [facility] - Main [place] [address] [place] [address] Osbaldo Dewitt NP [address] [place], [place] [phone] Social History Tobacco Use Types Packs/Day Years [...] Office Visit [facility] Family Medicine [address] [address] Osbaldo Dewitt NP [address] [place] [address] documented as of this encounter Procedures Procedure Name Priority Date/Time Associated Diagnosis Comments PAP TEST Routine 04/20/2019 16:37 EDT HPV DNA DETECTION WITH GENOTYPING, PCR Routine 04/20/2019 11:59 EDT documented in this encounter Results * PAP TEST (04/20/2019 16:37 EDT) 04/20/2019 16:3 7 EDT 04/20/2019 16:39 EDT Narrative [facility] - 04/27/2019 15:39 EDT ----- ------- Name: SANDIE DUVALL ? : 58 ?Age/Sex: 59/F ?Unit#: [id number] ? Loc: MHC ? Status: REG POV ?? Reg Date: 04/20/19 ? Pt.Phone Number: ? ----- ------- Specimen: [id number] ?STATUS: SOUT ?Spec Date:04/20/19 ? Physician Copies: ?Osbaldo Dewitt ? Tissues: ? VAG/CERV PAP ? CPT: 88453 ?? Units: ??1 ----- ------- ? CYTOLOGY [...] above diagnosis. Test Performed by [facility], [address] [place] [address] Advertising Display Rotator: Ewa Glover MD PHD ----- ------- us Osbaldo Dewitt NP PATHOLOGY ORDERABLES Final Res ult Performing Organization Address City/[facility]/ZIP Co de Phone Number [facility] * HUMAN PAPILLOMAVIRUS (HPV) DETECTION-HIGH RISK TYPES (04/20/2019 11:59 EDT) HPV other High Risk types, PCR NEG 04/22/2019 15:47 EDT [facility] Comment: Negative for HPV types 16, 18, 31, 33, 35, 39, 45, 51, 52, 56, 58, 59, 66, 68. Method: Cervista HPV HR (High Risk) DNA test. 04/20/2019 11:5 9 EDT 04/21/2019 12:00 EDT us Osbaldo Dewitt NP MICROBIOLOGY - GENERAL ORDERAB LES Final Result Performing Organization Address City/[facility]/ZIP Co de Phone Number [facility] documented in this encounter Visit Diagnoses Not on filedocumented in this encounter Care Teams Room Cleaner Relationship Specialty Start Date End Date Unknown, Provider, PCP - General 07/18/14 08/31/19 documented as of this encounter
--- OUTSIDE RECORDS SUMMARY | 2024-10-22 13:18 | XMS_ITS | Encounter Summary ---
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
--- OUTSIDE RECORDS SUMMARY | 2024-10-22 13:18 | XMS_ITS | Encounter Summary ---
Author Organization [facility] Address [address] [place] [address] Care Team Providers Care Supervisor Speech Name Role Phone Unknown, Provider MD Primary Care Provider Unava ilable Encounter Details Date Type Department Care Team (Latest Contact Info) Description 11/13/2018 10:07 EST - 11/13/2018 23:[address] [facility] [address] [place] [address] Unknown, Provider, Discharge Disposition: Home or Self [...] Code Departure Means Destination Home or Self [facility] documented in this encounter Plan of Treatment Upcoming Encounters Date Type Department Care Team (Late st Contact Info) Description 11/11/2024 15:30 EST Office Visit [address] [phone] Osbaldo Dewitt NP [address] [place], [place] [phone] documented as of this encounter Visit Diagnoses Not on filedocumented in this encounter Care Teams Supervisor Speech Relationship Specialty Start Date End Date Unknown, Provider, PCP - General 07/18/14 08/31/19 documented as of this encounter
--- OUTSIDE RECORDS SUMMARY | 2024-10-22 13:18 | XMS_ITS | Encounter Summary ---
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 Not [...] Office Visit [facility] Family [address] [phone] Osbaldo Dewitt NP [address] [place] [phone] documented as of this encounter Visit Diagnoses Diagnosis Rosacea- Primary documented in this encounter Discontinued Medications Medication Sig Discontinue Reason Start Date End Da te doxycycline (PERIOSTAT) 20 mg tablet TAKE TWO TABLETS BY MOUTH EVERY DAY 06/16/2020 12/13/2020 documented as of this encounter Care Teams Tree Faller Relationship Specialty Start Date End Date Osbaldo Dewitt NP [address] [place] [phone] PCP - General 09/01/19 documented as of this encounter
--- OUTSIDE RECORDS SUMMARY | 2024-10-22 13:18 | XMS_ITS | Encounter Summary ---
Author Organization [facility] Address [address] [place] [address] Care Team Providers Care Truck Driver Teamster Name Role Phone Osbaldo Dewitt NP Primary Care Provider [phone] Reason for Visit * Reason Comments Other Encounter Details Date Type Department Care Team (Late st Contact Info) Description 01/03/2020 Refill [facility] Family Medicine [address] [address] Osbaldo Dewitt NP [address] [place] [address] Other Social History Tobacco Use [...] Description 11/11/2024 15:30 EST Office Visit [facility] Integrative Family Medicine [address] [phone] Osbaldo Dewitt NP [address] [place] [phone] documented as of this encounter Visit Diagnoses Not on filedocumented in this encounter Discontinued Medications Medication Sig Discontinue Reason Start Date End Da te venlafaxine (EFFEXOR XR) 37.5 mg XR capsule Take 1 Cap by mouth daily. 11/26/2016 01/03/2020 documented as of this encounter Care Teams Truck Driver Teamster Relationship Specialty Start Date End Date Osbaldo Dewitt NP [address] [place] [phone] PCP - General 09/01/19 documented as of this encounter
--- OUTSIDE RECORDS SUMMARY | 2024-10-22 13:18 | XMS_ITS | Encounter Summary ---
Author Organization [facility] Address [address] [place] [address] Care Team Providers Care Editorial Manager Name Role Phone Osbaldo Dewitt NP Primary Care Provider Reason for Visit * Reason Comments Hypertension Hyperlipidemia Encounter Details Date Type Department Care Team (Late st Contact Info) Description 11/09/2019 10:40 EST Office Visit [facility] Medicine [facility] [address] [place] [address] Osbaldo Dewitt NP [address] [place] [address] Hypertension, unspecified type (Primary Dx); [...] this encounter Progress Notes * Osbaldo Dewitt, CARE NAVIGATOR - 11/09/2019 1040 EST [facility] Primary Care Subjective: Chief Complaint(s): Hypertension and Hyperlipidemia HPI: The history is provided by the patient. No revenue field auditor was used. Hypertension Managed with hydrochlorothiazide/losarten 25 [...] pt prefers every 5 years. Managed on [id number] QD. Rare breakthrough sxs. Psychiatry Hx of [...] Description 11/11/2024 15:30 EST Office Visit [facility] [address] Osbaldo Dewitt NP [address] [place] [address] documented as of this encounter Visit Diagnoses [...] daily. added in this encounter Care Teams Editorial Manager Relationship Specialty Start Date End Date Osbaldo Dewitt NP [address] [place], [place] [address] PCP - General 09/01/19 documented as of this encounter
--- OUTSIDE RECORDS SUMMARY | 2024-10-22 13:18 | XMS_ITS | Encounter Summary ---
Author Organization [facility] Address [address] [place] [address] Care Team Providers Care Cmm Operator Name Role Phone Osbaldo Dewitt NP Primary Care Provider [phone] Reason for Visit * Reason Comments Insect Bite Encounter Details Date Type Department Care Team (Late st Contact Info) Description 08/13/2020 15:40 [address] [facility]-In [facility] [address] [place], [place] [phone] Nava Garnica PA-C [address] [facility] [address] [place] [address] Local reaction to insect sting, [...] For patients, please refer to guidance in Poset on how to locate information. Generally this information will appear as a scanned documents saved in My Documents activity. documented in this encounter Plan of Treatment Upcoming Encounters Date Type Department Care Team (Late st Contact Info) Description 11/11/2024 15:30 EST Office Visit [address] [address] Osbaldo Dewitt NP [address] [place] [address] documented as of this encounter Visit [...] 09/13 documented in this encounter Care Teams Cmm Operator Relationship Specialty Start Date End Date Osbaldo Dewitt NP [address] [place] [address] PCP - General 09/01/19 documented as of this encounter
--- OUTSIDE RECORDS SUMMARY | 2024-10-22 13:18 | XMS_ITS | Encounter Summary ---
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
--- OUTSIDE RECORDS SUMMARY | 2024-10-22 13:18 | XMS_ITS | Encounter Summary ---
Author Organization [facility] Address [address] [place] [address] Care Team Providers Care Crew Leader Name Role Phone Osbaldo Dewitt NP Primary Care Provider [phone] Reason for Visit * Reason Comments Other Encounter Details Date Type Department Care Team (Late st Contact Info) Description 02/03/2020 Refill [facility] Family Medicine [address] [address] Osbaldo Dewitt NP [address] [place] [address] Other Social History Tobacco Use [...] Info) Description 11/11/2024 15:30 EST Office Visit [facility] Family [address] [address] Osbaldo Dewitt NP [address] [place] [address] documented as of this encounter [...] documented as of this encounter Care Teams Crew Leader Relationship Specialty Start Date End Date Osbaldo Dewitt NP [address] [place] [address] PCP - General 09/01/19 documented as of this encounter
--- OUTSIDE RECORDS SUMMARY | 2024-10-22 13:18 | XMS_ITS | Encounter Summary ---
Author Organization [facility] Address [address] [place] [address] Care Team Providers Care Foreign Language Professor Name Role Phone Osbaldo Dewitt NP Primary Care Provider [phone] Unavailable [phone] Reason for Visit * Reason Comments Other Encounter Details Date Type Department Care Team (Late st Contact Info) Description 12/02/2019 Refill [facility] Integrative Family Medicine [facility] [address] [place] [address] Osbaldo Dewitt NP [address] [place] [address] Other Social History Tobacco Use [...] Upcoming Encounters Date Type Department Care Team ([facility] st Contact Info) Description 11/11/2024 15:30 EST Office Visit [facility] Family [address] [phone] Osbaldo Dewitt NP [address] [place] [phone] documented as of this encounter Visit Diagnoses Not on filedocumented in this encounter Discontinued Medications Medication Sig Discontinue Reason Start Date End Da te doxycycline (PERIOSTAT) 20 mg tablet Take 2 Tabs by mouth daily. 12/02/2019 documented as of this encounter Care Teams Foreign Language Professor Relationship Specialty Start Date End Date Osbaldo Dewitt NP [address] [place] [phone] PCP - General 09/01/[address] [place] [phone] Registered Dietitian Clinical Nutrition 10/21/23 documented as of this encounter
--- OUTSIDE RECORDS SUMMARY | 2024-10-22 13:18 | XMS_ITS | Encounter Summary ---
Author Organization [facility] Address [address] [place] [address] Care Team Providers Care Vending Mechanic Name Role Phone Osbaldo Dewitt NP Primary Care Provider [phone] Reason for Visit * Reason Comments Other Encounter Details Date Type Department Care Team (Late st Contact Info) Description 06/16/2020 [facility] Medicine [address] [address] Osbaldo Dewitt NP [address] [place] [address] Other Social History Tobacco Use [...] Info) Description 11/11/2024 15:30 EST Office Visit [facility] Family Medicine [place] [phone] Osbaldo Dewitt NP [address] [place], [place] [phone] documented as of this encounter Visit Diagnoses Not on filedocumented in this encounter Discontinued Medications Medication Sig Discontinue Reason Start Date End Da te doxycycline (PERIOSTAT) 20 mg tablet Take 2 Tabs by mouth daily for 90 days. 12/02/2019 06/16/2020 documented as of this encounter Care Teams Vending Mechanic Relationship Specialty Start Date End Date Osbaldo Dewitt NP [address] [place], [place] [phone] PCP - General 09/01/19 documented as of this encounter
--- OUTSIDE RECORDS SUMMARY | 2024-10-22 13:18 | XMS_ITS | Encounter Summary ---
Author Organization [facility] Address [address] [place] [address] Care Team Providers Care Concrete Foreman Name Role Phone Unknown, Provider Primary Care Provider Unava ilable Encounter Details Date Type Department Care Team (Late st Contact Info) Description 10/23/2018 Historical Results Only [facility] - Main [place] [address] [place] [address] Osbaldo Dewitt NP [address] [place], [place] [phone] Social History Tobacco Use Types Packs/Day Years [...] Visit [facility] Integrative Family Medicine [address] [address] Osbaldo Dewitt NP [address] [place] [address] documented as of this encounter Procedures Procedure Name Priority Date/Time Associated Diagnosis Comments MAGNESIUM Routine 10/23/2018 8:00 EST VITAMIN B12 Routine 10/23/2018 8:00 EST LIPID PROFILE (INCLUDES CHOLESTEROL, TRIGLYCERIDES, HDL, LDL) Routine 10/23/2018 8:00 EST BASIC METABOLIC PANEL (BMP) Routine 10/23/2018 8:00 EST documented in this encounter Results * (ABNORMAL) VITAMIN B12 (10/23/2018 8:00 EST) Pathologist [facility] VITAMIN B12 - [facility] >1,000(H) 239 - 931 pg/mL 10/23/2018 10:07 EST [facility] Comment: The results of this assay can be falsely elevated due to the consumption of Biotin. 10/23/2018 8:00 EST 10/23/2018 8:00 EST Narrative [facility] - 10/23/2018 10:07 EST Does PT Have a Latex Allergy? NO Osbaldo Dewitt SPEECH AND LANGUAGE SPECIALIST CHEMISTRY & BLOOD GAS ORDERABL ES Final Result Performing Organization Address [facility] Co de Phone Number [facility] * MAGNESIUM (10/23/2018 8:00 EST) [facility] Magnesium 1.80 1.7 - 2.8 mg/dL 10/23/2018 9:24 EST [facility] 10/23/2018 8:00 EST 10/23/2018 8:00 EST [facility] - 10/23/2018 9:24 EST Does PT Have a Latex Allergy? NO us Osbaldo Dewitt SPEECH AND LANGUAGE SPECIALIST CHEMISTRY & BLOOD GAS ORDERABL ES Final Result Performing Organization Address [facility]/ZIP Co de Phone Number [facility] * (ABNORMAL) LIPID PROFILE (INCLUDES CHOLESTEROL, TRIGLYCERIDES, HDL, LDL) (10/23/2018 8:00 EST) Triglyceride 79 <150 mg/dL 10/23/2018 9:24 [facility] Comment: Adult: Normal: ?<150 mg/dl ? Borderline High: 150-199 mg/dl ? High: ?200-499 mg/dl ? Very High: >ap=541 Cholesterol 205(H) <200 mg/dL 10/23/2018 9:24 [facility] Comment: Acceptable: ??<200 Borderline: ??200-239 High: ?> or = 240 Chol/HDL Ratio 3.4 0 - 4.5 10/23/2018 9:24 [facility] Comment: DESIRABLE RATIO IS LESS THAN 4.1 PATIENTS ARE CONSIDERED AT RISK: WOMEN RATIO >5 MEN RATIO >6 FASTING? - [facility] Yes 8:00 [facility] HDL 60 40 - 60 mg/dL 10/23/2018 9:24 [facility] Comment: ?? Reference Range Low: ? < 40 ??mg/dL Normal: ??40-60 mg/dL High: ?>= 60 mg/dL LDL CHOLESTEROL - [facility] 129(H) 60 - 100 mg/dL 10/23/2018 9:24 [facility] Non HDL Cholesterol 145 mg/dl 10/23/2018 9:24 [facility] Comment: Desirable: ?Less than 130 Borderline High: ??130-159 High: ? 160-189 Very High: ?Greater than or equal to 190 10/23/2018 8:00 EST 10/23/2018 8:00 EST [facility] - 10/23/2018 9:24 EST Does PT Have a Latex Allergy? NO us Osbaldo Dewitt NP CHEMISTRY & BLOOD GAS ORDERABL ES Final Result [facility] * BASIC METABOLIC PANEL (BMP) (10/23/2018 8:00 EST) BUN - [facility] 11 10 - 26 mg/dL 10/23/2018 9:23 [facility] CALCIUM - [facility] 9.9 8.5 - 10.5 mg/dL 10/23/2018 9:23 [facility] Chloride 100 96 - 110 mmol/L 10/23/2018 9:23 [facility] CO2 Total 27 22 - 32 mEq/L 10/23/2018 9:23 [facility] CREATININE 0.63 0.52 - 1.04 mg/dL 10/23/2018 9:23 [facility] eGFR >60 10/23/2018 9:23 [facility] Comment: Chronic renal impairment is defined as GFR <60 Multiply result by 1.210 for patients. eGFR calculated using the IDMS-traceable MDRD Study Equation. ??(effective 08/08/2014) Anion Gap 15 0 - 18 10/23/2018 9:23 [facility] GLUCOSE - [facility] 97 70 - 100 mg/dL 10/23/2018 9:23 [facility] Potassium 4.1 3.5 - 5.0 mEq/L 10/23/2018 9:23 [facility] Sodium 142 136 - 145 mEq/L 10/23/2018 9:23 [facility] 10/23/2018 8:00 EST 10/23/2018 8:00 EST Narrative [facility] - 10/23/2018 9:23 EST Does PT Have a Latex Allergy? NO us Osbaldo Dewitt NP CHEMISTRY & BLOOD GAS ORDERABL ES Final Result [facility] documented in this encounter Visit Diagnoses Not on filedocumented in this encounter Care Teams Concrete Foreman Relationship Specialty Start Date End Date Unknown, Provider, PCP - General 07/18/14 08/31/19 documented as of this encounter
--- OUTSIDE RECORDS SUMMARY | 2024-10-22 13:18 | XMS_ITS | Encounter Summary ---
Author Organization [facility] Address [address] [place] [address] Care Team Providers Care Upholstery Handler Name Role Phone Osbaldo Dewitt NP Primary Care Provider [phone] Reason for Visit * Reason Comments Other Encounter Details Date Type Department Care Team (Late st Contact Info) Description 10/15/2020 Refill [facility] Integrative Family Medicine [facility] [address] [place] [address] Osbaldo Dewitt NP [address] [place] [address] Other Social History Tobacco Use [...] 11/11/2024 15:30 EST Office Visit [facility] Family Medicine [address] [address] Osbaldo Dewitt NP [address] [place] [address] documented as of this encounter Visit Diagnoses Diagnosis Gastroesophageal reflux disease- Primary Esophageal reflux documented in this encounter Discontinued Medications Medication Sig Discontinue Reason Start Date End Da te omeprazole (PRILOSEC) 20 mg capsuleIndications:Gastr oesophageal reflux disease, esophagitis presence not specified TAKE ONE CAPSULE BY MOUTH AT BEDTIME 09/30/2019 10/16/2020 documented as of this encounter Care Teams Upholstery Handler Relationship Specialty Start Date End Date Osbaldo Dewitt NP [address] [place] [address] PCP - General 09/01/19 documented as of this encounter
--- OUTSIDE RECORDS SUMMARY | 2024-10-22 13:18 | XMS_ITS | Encounter Summary ---
Author Organization [facility] Address [address] [place] [address] Care Team Providers Care Taper Printed Circuit Layout Name Role Phone Unknown, Provider Primary Care Provider Unava ilable Encounter Details Date Type Department Care Team (Late st Contact Info) Description 10/01/2016 Historical Results Only [facility] - Main [place] [address] [place] [address] Bird Watkins MD Social History Tobacco Use [...] Info) Description 11/11/2024 15:30 EST Office Visit [facility] Integrative Family Medicine [facility] [address] [place], [place] [address] Osbaldo Dewitt, SG [address] [place] [address] documented as of this encounter Procedures Procedure Name Priority Date/Time Associated Diagnosis Comments SURGICAL PATHOLOGY Routine 10/01/2016 16 :19 EST documented in this encounter Results * SURGICAL PATHOLOGY (10/01/2016 16:19 EST) 10/01/2016 16:1 9 EST 10/01/2016 16:19 EST Narrative [facility] - 10/02/2016 11:55 EST ----- ------- Name: SANDIE DUVALL ? : 58 ?Age/Sex: 58/F ?Unit#: [id number] ? Loc: END ? Status: DEP CLI ?? Reg Date: 10/01/16 ? Pt.Phone Number: ? ----- ------- Specimen: [id number] ? STATUS: SOUT ?Spec Date:10/01/16 ? Physician Copies: ?Bird Watkins MD ?? Tissues: A ?? Endoscopy specimen (ESOPHAGUS) ? Osbaldo Dewitt ? CPT: 37922 ?? Units: ??1 ?FINAL DIAGNOSIS ? ESOPHAGUS, [...] confirmed the above diagnosis. Test Performed by , [address] [place] [address] Rat Trapper: Ewa Glover MD PHD ----- ------- us Bird Watkins MD PATHOLOGY ORDERABLES Final Re sult [facility] documented in this encounter Visit Diagnoses Not on filedocumented in this encounter Care Teams Taper Printed Circuit Layout Relationship Specialty Start Date End Date Unknown, Provider, PCP - General 07/18/14 08/31/19 documented as of this encounter
--- OUTSIDE RECORDS SUMMARY | 2024-10-22 13:18 | XMS_ITS | Encounter Summary ---
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 Integrative Family Medicine [facility] [address] [place] [address] Osbaldo Dewitt, PENSION FUND MANAGER [address] [place] [address] documented as of this encounter Procedures Procedure Name Priority Date/Time Associated Diagnosis Comments EXERCISE TOLERANCE TEST (ETT) 02/08/2021 14:00 EDT documented in this encounter Results * EXERCISE TOLERANCE TEST (ETT) (02/08/2021 14:00 EDT) Anatomical Region Laterality Modality Nuclear Stress 02/08/2021 14:0 0 EDT Narrative 02/11/2021 12:00 EDT *[facility]* *[facility]* [address] [place] [address] Stress Electrocardiography Demetris protocol Date of study: [...] peak heart rate and blood pressure was 72921pz Hg/min. ??The patient experienced no chest pain during stress. ?? Exercise capacity is above normal for age. Stress ECG: ABOVE AVERAGE FUNCTIONAL CAPACITY GOOD EXERCISE CORTNEY- 10 METS ( 9 MINUTES 9 SECONDS IN [facility]) MAX HR- 143 BPM NO CHEST PAIN NO ECTOPY HYPERTENSIVE NO ISCHEMIC ECG CHANGES. ??The stress ECG is negative. Study data: ??Anu Balbuena MD supervised and was readily available during the procedure. This study was interpreted by [facility]. ??Study status: ??Routine. ??Consent: ??The [...] Note Anu Balbuena MD - 02/11/2021 *[facility]* *[facility]* [address] [place] [address] Stress Electrocardiography Demetris protocol Date of study: [...] peak heart rate and blood pressure was 02675qk Hg/min. The patient experienced no chest pain [...] procedure. This study was interpreted by [facility]. Study status: Routine. Consent: The [...] on filedocumented in this encounter Care Teams Salesperson Parts Relationship Specialty Start Date End Date Osbaldo Dewitt, SG [address] [place] [address] PCP - General 09/01/[address] [place] [address] Registered Dietitian Clinical Nutrition 10/21/23 documented as of this encounter
--- OUTSIDE RECORDS SUMMARY | 2024-10-22 13:18 | XMS_ITS | Encounter Summary ---
Author Organization [facility] Address [address] [place] [address] Care Team Providers Care Generating Plant Superintendent Name Role Phone Osbaldo Dewitt NP Primary Care Provider [phone] Reason for Visit * Reason Onset Date Comments Medications Refill 11/15/2020 Encounter Details Date Type Department Care Team (Late st Contact Info) Description 11/15/2020 Refill [facility] Integrative Family Medicine [facility] [address] [place], [place] [phone] Graec Wright RN Medications Refill Social History Tobacco [...] Office Visit [facility] [address] [phone] Osbaldo Dewitt NP [address] [place] [address] documented as of this encounter Visit Diagnoses Diagnosis 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 once a week prn Reorder 06/04/2016 11/15/2020 documented as of this encounter Care Teams Generating Plant Superintendent Relationship Specialty Start Date End Date Osbaldo Dewitt NP [address] [place] [address] PCP - General 09/01/19 documented as of this encounter
--- OUTSIDE RECORDS SUMMARY | 2024-10-22 13:18 | XMS_ITS | Encounter Summary ---
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
--- OUTSIDE RECORDS SUMMARY | 2024-10-22 13:18 | XMS_ITS | Encounter Summary ---
Author Organization [facility] Address [address] [place] [address] Care Team Providers Care Hospital Manager Name Role Phone Unknown, Provider Primary Care Provider Unava ilable Encounter Details Date Type Department Care Team (Late st Contact Info) Description 05/13/2017 Historical Results Only [facility] Radiology Results [address] [place] [address] Mellisa Sweeney NP [address] [place] [address] [place] [address] Social History Tobacco Use Types Packs/Day Years [...] 11/11/2024 15:30 EST Office Visit [facility] Family [facility] [address] [place] [address] Osbaldo Dewitt NP [address] [place] [address] documented as of this encounter Procedures Procedure [...] CC: ? Transcribed Date/Time: 05/13/2017 (0913) ? Resource Economist: ? Printed Date/Time: 03/23/2019 (1835) ? PAGE [...] Douglas MD CC: Transcribed Date/Time: 05/13/2017 (0913) Resource Economist: Printed Date/Time: 03/23/2019 (7912) PAGE 1 Signed Report Mellisa Sweeney NP IMG DIAGNOSTIC IMAGING ORDERA BLES Final Result documented in this encounter Visit Diagnoses Not on filedocumented in this encounter Care Teams Hospital Manager Relationship Specialty Start Date End Date Unknown, Provider, PCP - General 07/18/14 08/31/19 documented as of this encounter
--- OUTSIDE RECORDS SUMMARY | 2024-10-22 13:18 | XMS_ITS | Encounter Summary ---
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
--- OUTSIDE RECORDS SUMMARY | 2024-10-22 13:18 | XMS_ITS | Encounter Summary ---
Author Organization [facility] Address [address] [place] [address] Care Team Providers Care Chief General Pediatric Clinic Name Role Phone Osbaldo Dewitt NP Primary Care Provider Reason for Visit * Reason Comments Other Encounter Details Date Type Department Care Team (Late st Contact Info) Description 05/12/[address] [facility] Integrative Family Medicine [address] [address] Osbaldo Dewitt FIRE TECHNOLOGY INSTRUCTOR [address] [place] [address] Other Social History Tobacco Use [...] Info) Description 11/11/2024 15:30 EST Office Visit [facility] Family [address] [phone] Osbaldo Dewitt NP [address] [place] [address] documented as of this encounter Visit Diagnoses Not on filedocumented in this encounter Discontinued Medications Medication Sig Discontinue Reason Start Date End Da te losartan-hydrochlorothia zide (HYZAAR) 100-25 mg per tablet TAKE ONE TABLET BY MOUTH EVERY DAY 02/03/2020 05/12/2020 documented as of this encounter Care Teams Chief General Pediatric Clinic Relationship Specialty Start Date End Date Osbaldo Dewitt NP [address] [place] [address] PCP - General 09/01/19 documented as of this encounter
--- OUTSIDE RECORDS SUMMARY | 2024-10-22 13:18 | XMS_ITS | Encounter Summary ---
Author Organization [facility] Address [address] [place] [address] Care Team Providers Care Inside Plant Supervisor Name Role Phone Unknown, Provider Primary Care Provider Unava ilable Encounter Details Date Type Department Care Team (Late st Contact Info) Description 07/02/2017 Historical Results Only [facility] [place] [address] [place] [address] Osbaldo Dewtit NP [address] [place], [place] [phone] Social History Tobacco Use Types Packs/Day Years [...] Info) Description 11/11/2024 15:30 EST [facility] Family Medicine [address] [address] Osbaldo Dewitt NP [address] [place] [address] documented as of this encounter Procedures Procedure Name Priority Date/Time Associated Diagnosis Comments LIPID PROFILE (INCLUDES CHOLESTEROL, TRIGLYCERIDES, HDL, LDL) Routine 07/02/2017 8:38 EDT documented in this encounter Results * (ABNORMAL) LIPID PROFILE (INCLUDES CHOLESTEROL, TRIGLYCERIDES, HDL, LDL) (07/02/2017 8:38 EDT) Triglyceride 121 35 - 150 mg/dL 07/02/2017 9:50 EDT [facility] Cholesterol 232(H) 120 - 200 mg/dL 07/02/2017 9:50 EDT [facility] Chol/HDL Ratio 3.2 0 - 4.5 07/02/2017 9:50 EDT [facility] Comment: DESIRABLE RATIO IS LESS THAN 4.1 PATIENTS ARE CONSIDERED AT RISK: WOMEN RATIO >5 MEN RATIO >6 FASTING? - [facility] Yes 7 8:39 EDT [facility] HDL 71(H) 40 - 60 mg/dL 07/02/2017 9:50 EDT [facility] LDL CHOLESTEROL - [facility] 137(H) 60 - 100 mg/dL 07/02/2017 9:50 EDT [facility] Non HDL Cholesterol 161 mg/dl 07/02/2017 9:50 EDT [facility] Comment: Desirable: ?Less than 130 Borderline High: ??130-159 High: ? 160-189 Very High: ?Greater than or equal to 190 07/02/2017 8:38 EDT 07/02/2017 8:38 EDT Narrative [facility] - 07/02/2017 9:50 EDT Does PT Have a Latex Allergy? NO us Osbaldo Dewitt NP CHEMISTRY & BLOOD GAS ORDERABL ES Final Result [facility] documented in this encounter Visit Diagnoses Not on filedocumented in this encounter Care Teams Inside Plant Supervisor Relationship Specialty Start Date End Date Unknown, Provider, PCP - General 07/18/14 08/31/19 documented as of this encounter
--- OUTSIDE RECORDS SUMMARY | 2024-10-22 13:18 | XMS_ITS | Encounter Summary ---
Author Organization [facility] Address [address] [place] [address] Care Team Providers Care Hydrodynamics Teacher Name Role Phone Osbaldo Dewitt WAREHOUSE PACKER Primary Care Provider [phone] Encounter Details Date Type Department Care Team (Late st Contact Info) Description 10/02/2019 Abstract [facility] Adult Primary Care - [address] [address] Ambulatory, Refrigeration Lead Social History Tobacco Use Types Packs/Day Years [...] Description 11/11/2024 15:[address] [facility] [address] [place], [place] [phone] Osbaldo Dewitt, WAREHOUSE PACKER [address] [place] [address] documented as of this encounter [...] 1 added in this encounter Care Teams Hydrodynamics Teacher Relationship Specialty Start Date End Date Osbaldo Dewitt NP [address] [place] [address] PCP - General 09/01/19 documented as of this encounter
--- OUTSIDE RECORDS SUMMARY | 2024-10-22 13:18 | XMS_ITS | Encounter Summary ---
Author Organization [facility] Address [address] [place] [address] Care Team Providers Care Pulverizer Tender Name Role Phone Unknown, Provider MD Primary Care Provider Unava ilable Encounter Details Date Type Department Care Team (Latest Contact Info) Description 05/13/2017 14:17 EDT - 05/13/2017 23:59 EDT Hospital Encounter [facility] [address] [place] [address] Unknown, Provider, Discharge Disposition: Home or Self [...] Code Departure Means Destination Home or Self Assisted documented in this encounter Plan of Treatment Upcoming Encounters Date Type Department Care Team (Late st Contact Info) Description 11/11/2024 15:30 EST Office Visit [facility] Family [address] [phone] Osbaldo Dewitt NP [address] [place], [place] [phone] documented as of this encounter Visit Diagnoses Not on filedocumented in this encounter Care Teams Pulverizer Tender Relationship Specialty Start Date End Date Unknown, Provider, PCP - General 07/18/14 08/31/19 documented as of this encounter
--- OUTSIDE RECORDS SUMMARY | 2024-10-22 13:18 | XMS_ITS | Encounter Summary ---
Author Organization [facility] Address [address] [place] [address] Care Team Providers Care Traffic And Transport Planner Name Role Phone Osbaldo Dewitt NP Primary Care Provider [phone] Reason for Visit * Reason Onset Date Comments Medications Refill 11/02/2019 Encounter Details Date Type Department Care Team (Late st Contact Info) Description 11/02/2019 Telephone [facility] Medicine [facility] [address] [place] [address] Osbaldo Dewitt NP [address] [place] [address] Medications Refill Social History Tobacco [...] Info) Description 11/11/2024 15:30 EST Office Visit [facility] Integrative Family Medicine [address] [phone] Osbaldo Dewitt, SG [address] [place], [place] [phone] documented as of this encounter Visit Diagnoses [...] 11/02/2019 added in this encounter Care Teams Traffic And Transport Planner Relationship Specialty Start Date End Date Osbaldo Dewitt NP [address] [place] [address] PCP - General 09/01/19 documented as of this encounter
--- OUTSIDE RECORDS SUMMARY | 2024-10-22 13:18 | XMS_ITS | Encounter Summary ---
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 Not [...] [facility] Integrative Family Medicine [facility] [address] [place] [address] Osbaldo Dewitt, WHIP SAWYER [address] [place] [address] (work) documented as of this encounter Procedures Procedure Name Priority Date/Time Associated Diagnosis Comments LIPID PROFILE (INCLUDES CHOLESTEROL, TRIGLYCERIDES, HDL, LDL) Routine 12/15/2020 7:37 EST COMPREHENSIVE METABOLIC PANEL (CMP) Routine 12/15/2020 7:37 EST documented in this encounter Results * (ABNORMAL) LIPID PROFILE (INCLUDES CHOLESTEROL, TRIGLYCERIDES, HDL, LDL) (12/15/2020 7:37 EST) [facility] Triglyceride 83 <150 mg/dL 12/15/2020 9:04 [facility] Comment: Adult: Normal: ?<150 mg/dl ? Borderline High: 150-199 mg/dl ? High: ?200-499 mg/dl ? Very High: >xx=665 Cholesterol 225(H) <200 mg/dL 12/15/2020 9:04 [facility] Comment: Acceptable: ??<200 Borderline: ??200-239 High: ?> or = 240 Chol/HDL Ratio 3.5 0 - 4.5 12/15/2020 9:04 [facility] Comment: DESIRABLE RATIO IS LESS THAN 4.1 PATIENTS ARE CONSIDERED AT RISK: WOMEN RATIO >5 MEN RATIO >6 FASTING? - [facility] Yes 7:37 [facility] HDL 63(H) 40 - 60 mg/dL 12/15/2020 9:04 [facility] Comment: ?? Reference Range Low: ? < 40 ??mg/dL Normal: ??40-60 mg/dL High: ?>= 60 mg/dL LDL CHOLESTEROL - [facility] 145(H) 60 - 100 mg/dL 12/15/2020 9:04 [facility] Non HDL Cholesterol 162 mg/dl 12/15/2020 9:04 [facility] Comment: Desirable: ?Less than 130 Borderline High: ??130-159 High: ? 160-189 Very High: ?Greater than or equal to 190 12/15/2020 7:37 EST 12/15/2020 7:[address] [facility] - 12/15/2020 9:04 EST Does PT Have a Latex Allergy? NO us Osbaldo Dewitt NP CHEMISTRY & BLOOD GAS ORDERABL ES Final Result [facility] [address] [place] [address] * COMPREHENSIVE METABOLIC PANEL (CMP) (12/15/2020 7:37 EST) Albumin % 4.5 3.4 - 4.9 g/dL 12/15/2020 9:04 [facility] ALKALINE PHOSPHATASE - [facility] 63 38 - 126 U/L 12/15/2020 9:04 [facility] BILIRUBIN TOTAL 0.4 0.2 - 1.3 mg/dL 12/15/2020 9:04 [facility] BUN - [facility] 19 10 - 26 mg/dL 12/15/2020 9:04 [facility] CALCIUM - [facility] 9.7 8.5 - 10.5 mg/dL 12/15/2020 9:04 [facility] Chloride 103 96 - 110 mmol/L 12/15/2020 9:04 [facility] CO2 Total 29 22 - 32 mEq/L 12/15/2020 9:04 [facility] CREATININE 0.67 0.52 - 1.04 mg/dL 12/15/2020 9:04 [facility] eGFR >60 12/15/2020 9:04 [facility] Comment: Chronic renal impairment is defined as GFR <60 Multiply result by 1.210 for patients. eGFR calculated using the IDMS-traceable MDRD Study Equation. ??(effective 08/08/2014) Anion Gap 8 0 - 18 12/15/2020 9:04 [facility] GLUCOSE - [facility] 96 70 - 100 mg/dL 12/15/2020 9:[address] [facility] Potassium 4.3 3.5 - 5.0 mEq/L 12/15/2020 9:04 [facility] Sodium 140 136 - 145 mEq/L 12/15/2020 9:[address] [facility] TOTAL PROTEIN - [facility] 7.5 6.2 - 8.2 gm/dL 12/15/2020 9:04 [facility] SGOT/AST - [facility] 25 14 - 36 U/L 12/15/2020 9:04 [facility] SGPT/ALT - [facility] 15 0 - 35 U/L 9:04 [facility] 12/15/2020 7:37 EST 12/15/2020 7:[address] [facility] - 12/15/2020 9:04 EST Does PT Have a Latex Allergy? NO us Osbaldo Dewitt NP CHEMISTRY & BLOOD GAS ORDERABL ES Final Result [facility] [address] [place] [address] documented in this encounter Visit Diagnoses Not on filedocumented in this encounter Care Teams Net Making Supervisor Relationship Specialty Start Date End Date Osbaldo Dewitt, SG [address] [place] [address] PCP - General 09/01/19 documented as of this encounter
--- OUTSIDE RECORDS SUMMARY | 2024-10-22 13:18 | XMS_ITS | Encounter Summary ---
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 [address] [place], [place] [phone] Osbaldo Dewitt NP [address] [place] [address] documented as of this encounter Visit Diagnoses Diagnosis Anxiety- Primary Anxiety state, unspecified Depression, unspecified depression type documented in this encounter Discontinued Medications Medication Sig Discontinue Reason Start Date End Da te venlafaxine (EFFEXOR-XR) 37.5 mg XR capsule TAKE ONE CAPSULE BY MOUTH EVERY DAY 01/03/2020 01/15/2021 documented as of this encounter Care Teams Lead Supply Worker Relationship Specialty Start Date End Date Osbaldo Dewitt NP [address] [place] [phone] PCP - General 09/01/19 documented as of this encounter
--- OUTSIDE RECORDS SUMMARY | 2024-10-22 13:18 | XMS_ITS | Encounter Summary ---
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 [facility] Primary Care Subjective: Chief Complaint(s): Back Pain (lower right bback) HPI: The history is provided by the patient. No tour director was used. Sandie is seen today for [...] space ergonomics. The 10-year ASCVD risk score (Van Horn ISAIAH Jr., et al., 2013) is: 4.6% [...] Visit [facility] Integrative Family Medicine [address] [phone] Osbaldo Dewitt NP [address] [place], [place] [phone] documented as of this encounter Visit Diagnoses [...] 02/20/2021 documented in this encounter Care Teams Xm1 Tank Driver Relationship Specialty Start Date End Date Osbaldo Dewitt NP [address] [place] [address] PCP - General 09/01/19 documented as of this encounter
--- OUTSIDE RECORDS SUMMARY | 2024-10-22 13:18 | XMS_ITS | Encounter Summary ---
Author Organization [facility] Address [address] [place] [address] Care Team Providers Care Controller Repairer And Tester Name Role Phone Osbaldo Dewitt EMAIL ADMINISTRATOR Primary Care Provider [phone] Encounter Details Date Type Department Care Team (Late st Contact Info) Description 10/04/2019 Results Only [facility] [address] [place] [address] Bird Watkins MD Social History [...] Info) Description 11/11/2024 15:30 EST Office Visit [facility] Integrative Family Medicine [facility] [address] [place], [place] [phone] Osbaldo Dewitt NP [address] [place] [address] documented as of this encounter Procedures Procedure Name Priority Date/Time Associated Diagnosis Comments SURGICAL PATHOLOGY Routine 10/04/2019 documented in this encounter Results * SURGICAL PATHOLOGY (10/04/2019) 10/04/2019 10/04/2019 10: 36 EST Narrative [facility] - 10/05/2019 10:05 EST ----- ------- Name: SANDIE DUVALL ? : 58 ?Age/Sex: 59/F ?Unit#: [id number] ? Loc: END ? Status: DEP CLI ?? Reg Date: 10/04/19 ? Pt.Phone Number: ? ----- ------- Specimen: [id number] ? STATUS: SOUT ?Spec Date:10/04/19 ? Physician Copies: ?Bird Watkins MD ?? Tissues: A ?? Endoscopy specimen ([place]) ? Osbaldo Dewitt ? CPT: 72231 ?? Units: ??1 ?FINAL DIAGNOSIS ? GASTROESOPHAGEAL [...] diagnosis. Test Performed by [facility], [address] [place] [address] Customer Logistics Manager: Ewa Glover MD PHD ----- ------- us Bird Watkins MD PATHOLOGY ORDERABLES Final Re sult [facility] documented in this encounter Visit Diagnoses Not on filedocumented in this encounter Care Teams Controller Repairer And Tester Relationship Specialty Start Date End Date Osbaldo Dewitt EMAIL ADMINISTRATOR [address] [place] [phone] PCP - General 09/01/19 documented as of this encounter
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
--- OUTSIDE RECORDS SUMMARY | 2024-10-22 13:18 | XMS_ITS | Encounter Summary ---
Author Organization [facility] Address [address] [place] [address] Care Team Providers Care Broaching Machine Operator Name Role Phone Unknown, Provider Primary Care Provider Unava ilable Encounter Details Date Type Department Care Team (Late st Contact Info) Description 07/02/[address] [facility] - [address] [place] [address] [place] [address] Osbaldo Dewitt NP [address] [place], [place] [phone] Social History Tobacco Use Types Packs/Day Years [...] Visit [facility] Integrative Family Medicine [address] [address] Osbaldo Dewitt NP [address] [place] [address] documented as of this encounter Procedures Procedure Name Priority Date/Time Associated Diagnosis Comments COMPREHENSIVE METABOLIC PANEL (CMP) Routine 07/02/2017 8:38 EDT documented in this encounter Results * COMPREHENSIVE METABOLIC PANEL (CMP) (07/02/2017 8:38 EDT) Albumin % 3.6 3.4 - 5.0 g/dL 07/02/2017 9:50 [facility] ALKALINE PHOSPHATASE - [facility] 72 41 - 126 U/L 07/02/2017 9:50 [facility] BILIRUBIN TOTAL 0.4 0.0 - 1.0 mg/dL 07/02/2017 9:50 [facility] BUN - [facility] 13 7 - 18 mg/dL 07/02/2017 9:50 [facility] CALCIUM - [facility] 9.2 8.5 - 10.1 mg/dL 07/02/2017 9:50 [facility] Chloride 107 98 - 107 mEq/L 07/02/2017 9:50 [facility] CO2 Total 27 21 - 32 mEq/L 07/02/2017 9:50 [facility] CREATININE 0.61 0.5 - 1.3 mg/dL 07/02/2017 9:50 [facility] eGFR >60 07/02/2017 9:50 [facility] Comment: Chronic renal impairment is defined as GFR <60 Multiply result by 1.210 for patients. eGFR calculated using the IDMS-traceable MDRD Study Equation. ??(effective 08/08/2014) Anion Gap 8 5 - 15 07/02/2017 9:50 [facility] GLUCOSE - [facility] 92 70 - 100 mg/dL 07/02/2017 9:50 [facility] Potassium 4.0 3.5 - 5.0 mEq/L 07/02/2017 9:50 [facility] Sodium 142 135 - 145 mEq/L 07/02/2017 9:50 [facility] TOTAL PROTEIN - [facility] 7.3 6.4 - 8.2 gm/dl 07/02/2017 9:50 EDT [facility] SGOT/AST - [facility] 23 10 - 37 U/L 07/02/2017 9:50 EDT [facility] SGPT/ALT - [facility] 26 12 - 78 U/L 07/02/2017 9:50 EDT [facility] 07/02/2017 8:38 EDT 07/02/2017 8:38 EDT Narrative [facility] - 07/02/2017 9:50 EDT Does PT Have a Latex Allergy? NO us Osbaldo Dewitt NP CHEMISTRY & BLOOD GAS ORDERABL ES Final Result [facility] documented in this encounter Visit Diagnoses Not on filedocumented in this encounter Care Teams Broaching Machine Operator Relationship Specialty Start Date End Date Unknown, Provider, PCP - General 07/18/14 08/31/19 documented as of this encounter
--- OUTSIDE RECORDS SUMMARY | 2024-10-22 13:18 | XMS_ITS | Encounter Summary ---
Author Organization [facility] Address [address] [place] [address] Care Team Providers Care Estate Planning Attorney Name Role Phone Unknown, Provider Primary Care Provider Unava ilable Encounter Details Date Type Department Care Team (Late st Contact Info) Description 11/20/2017 Historical Results Only [facility] Radiology Results [address] [place] [address] Ada Theodore PA-C [address] [facility] [address] [place], [place] [address] Social History Tobacco Use Types Packs/Day Years [...] Info) Description 11/11/2024 15:30 EST Office Visit [facility] [address] [place] [address] Osbaldo Dewitt NP [address] [place] [address] documented as of this encounter Procedures Procedure [...] CC: ? Transcribed Date/Time: 11/20/2017 (1409) ? Shoemaking Cutter: ? Printed Date/Time: 03/25/2019 (5630) ? PAGE 1 ? Signed Report ? [...] Arnold MD CC: Transcribed Date/Time: 11/20/2017 (1409) Shoemaking Cutter: Printed Date/Time: 03/25/2019 (0175) PAGE 1 Signed Report us Ada Theodore PA-C [facility] ORDERABLES Final Result documented in this encounter Visit Diagnoses Not on filedocumented in this encounter Care Teams Estate Planning Attorney Relationship Specialty Start Date End Date Unknown, Provider, PCP - General 07/18/14 08/31/19 documented as of this encounter
--- OUTSIDE RECORDS SUMMARY | 2024-10-22 13:18 | XMS_ITS | Encounter Summary ---
Author Organization [facility] Address [address] [place] [address] Care Team Providers Care Cigarette Making Machine Catcher Name Role Phone Unknown, Provider MD Primary Care Provider Unava ilable Encounter Details Date Type Department Care Team (Latest Contact Info) Description 11/20/2017 23:48 EST - 11/20/2017 23:59 EST Hospital Encounter [facility] [address] [place] [address] Unknown, Provider, Discharge Disposition: Home or Self [...] Code Departure Means Destination Home or Self Group Home documented in this encounter Plan of Treatment Upcoming Encounters Date Type Department Care Team (Late st Contact Info) Description 11/11/2024 15:30 EST Office Visit [address] [phone] Osbaldo Dewitt NP [address] [place], [place] [phone] documented as of this encounter Visit Diagnoses Not on filedocumented in this encounter Care Teams Cigarette Making Machine Catcher Relationship Specialty Start Date End Date Unknown, Provider, PCP - General 07/18/14 08/31/19 documented as of this encounter
--- OUTSIDE RECORDS SUMMARY | 2024-10-22 13:19 | XMS_ITS | Encounter Summary ---
[place] [address] Care Team Providers Care Nondestructive Tester Name Role Phone Esdras, Osbaldojerrica Piña APRN Primary Care Provider [phone] Encounter Details Date Type Department Care Team (Late st Contact Info) Description 12/26/2023 [place] [address] Eric Damon MD Social History [...] on filedocumented in this encounter Care Teams Nondestructive Tester Relationship Specialty Start Date End Date Osbaldo Dewitt APRN [address] [place] [phone] PCP - General Family Medicine 12/31/22 documented as of this encounter
--- OUTSIDE RECORDS SUMMARY | 2024-10-22 13:19 | XMS_ITS | Encounter Summary ---
Author Organization [facility] [place] [address] Care Team Providers Care Divinity Professor Name Role Phone Osbaldo Dewitt Yaron PAGE Primary Care Provider [phone] Reason for Visit * Auth/Cert (Routine) Specialty Diagnoses / Procedures Referred By Chance t Referred To Contact Diagnoses shoulder arthritis Procedures PRO ARTHROPLASTY GLENOHUMERAL JOINT TOTAL SHOULDER PRO REPAIR BICEPS LONG TENDON TOTAL SHOULDER ARTHROPLASTY (WRVU 22.13) MODIFIER BEACH CHAIR SCHLEIN TENODESIS,BICEPS TENDON (PROXIMAL) (WRVU 10.17) Christine Colby MD [facility] [place] [address] [facility] Referral ID Status Reason Start Date Expiration Date Visits Re quested Visits Authorized [id number] 1 1 Encounter Details Date Type Department Care Team (Late st Contact Info) Description 12/09/2023 7:25 AM EST Anesthesia [place] [address] Yuan Oneal MD [facility] [place] [address] Kevin Lynn MD [facility] [place] [address] Anesthesia Record Procedure Summary Procedure Name Responsible [...] 12/09/23 075 by Mey Prince, RN PIV vmos-fcx-zynyxg cath eter system; 18 gauge; metacarpal vein [...] Procedure Summary Date: 12/09/23 Room / Location: [facility] Anesthesia Start: 724 Anesthesia Stop: 934 Procedures: TOTAL SHOULDER ARTHROPLASTY (WRVU 22.13) (Right: Shoulder) MODIFIER SIDUS SHOULDER CHANDLER BIOMET TENODESIS,BICEPS TENDON (PROXIMAL) (WRVU 10.17) (Right: Shoulder) Diagnosis: (shoulder pain) Surgeons: Christine Colby MD Responsible Provider: Yuan Oneal MD Anesthesia Type: general ASA Status: 3 All Anesthesia Providers: Anesthesiologist: Yuan Oneal MD TECHNICAL SALES SUPPORT SPECIALIST: Selene Hammer CRNA Vitals Value Taken Time BP 132/80 12/09/23 1030 Temp 36 ??C (96.8 ??F) 12/09/23 0934 Pulse 60 12/09/23 1042 Resp 16 12/09/23 1042 SpO2 91 % 12/09/23 1042 Pain Level 0 12/09/23 0934 Vitals shown include unfiled device data. Patient Location: PACU/[facility] Level of Consciousness: Awake and Alert Pain [...] 22.13) performed by Christine Colby MD at [facility] OR ??? PRO REPAIR BICEPS LONG TENDON Left 03/11/2023 TENODESIS,BICEPS TENDON (PROXIMAL) (WRVU 10.17) performed by Christine Colby MD at [facility] OR Social History Tobacco Use [...] blood products. Plan discussed with attending and TECHNICAL SALES SUPPORT SPECIALIST. Anesthesia Screening documented in this encounter Plan [...] Kevin Smith MD ?? Kevin Smith MD [employer] [facility] documented in this encounter Visit Diagnoses [...] mg documented in this encounter Care Teams Divinity Professor Relationship Specialty Start Date End Date Osbaldo Dewitt APRN [address] [place] [phone] PCP - General Family Medicine 12/31/22 documented as of this encounter
--- OUTSIDE RECORDS SUMMARY | 2024-10-22 13:19 | XMS_ITS | Encounter Summary ---
Author Organization [facility] Address [facility] [place] [address] Care Team Providers Care Paediatric Physiotherapist Name Role Phone Osbaldo Dewitt APRN Primary Care Provider [phone] Reason for Referral * Physical Therapy (Routine) - Closed Specialty Diagnoses / Procedures Referred By Chance le Referred To Contact Physical Therapy Diagnoses Primary osteoarthritis of both shoulders Christine Colby MD [facility] [place] [address] Physical Therapy, Espino[facility] Newman [address] [place] [address] Referral ID Status Reason Start Date Expiration Date V isits Requested Visits Authorized [id number] Closed Evaluate and Treat 11/13/2023 05/11/2024 12 12 Reason for Visit * Reason Comments Pre-op Exam 12-09-23 RIGHT TSA Encounter Details Date Type Department Care Team (Latest Contact Info) Description 11/13/2023 11:20 AM EST Office [place] [address] Christine Colby MD [facility] [place] [address] Primary osteoarthritis of both shoulders; Primary osteoarthritis [...] - 11/13/2023 11:20 AM EST Shoulder Service [place], [place] Date of Evaluation: 11/13/2023 Subjective: Sandie [...] M.D., M.S. Professor of Orthopaedic Surgery [facility] Department [place] [address] This note was created with [employer] voice recognition software. Please excuse any typos. [...] making sure they take care of child care nurse, sleeping situations, and having help with ADL'sbefore [...] surgery. Chronic anti-coagulation: yes, per PCP or Telegraphic Service Dispatcher Anticoagulation plan post op: POSTOPANTICOAG: TBD by PCP/Telegraphic Service Dispatcher 11/13/2023 03/06/2023 02/07/2023 Opioid PDMP [place] PDMP [...] schedulers direct number Mae Knight.Nani.LAT, VTLAT, ATC Manager Content, Orthopedics and Sports Medicine Tel Fax [facility] documented in this encounter Plan of Treatment Scheduled Referrals Name Type Priority Associated Diagnoses Orde r Schedule Referral to Physical Therapy Outpatient Referral Routine Primary osteoarthritis of both shoulders Ordered: 11/13/2023 documented as of this encounter Visit Diagnoses Diagnosis Primary osteoarthritis of both shoulders Primary osteoarthritis of right shoulder Primary localized osteoarthrosis, shoulder region documented in this encounter Care Teams Paediatric Physiotherapist Relationship Specialty Start Date End Date Osbaldo Dewitt APRN [address] [place] [phone] PCP - General Family Medicine 12/31/22 documented as of this encounter
--- OUTSIDE RECORDS SUMMARY | 2024-10-22 13:19 | XMS_ITS | Encounter Summary ---
Author Organization [facility] Address [address] [place] [address] Care Team Providers Care Assistant Designer Name Role Phone Unknown, Provider Primary Care Provider Unava ilable Encounter Details Date Type Department Care Team (Late st Contact Info) Description 10/25/2014 Results Only [facility] [phone] Lyudmila Contreras NP [address] [place] [address] Social History Tobacco Use Types [...] Info) Description 11/11/2024 15:30 EST Office Visit [facility] Integrative Family Medicine [facility] [address] [place], [place] [phone] Osbaldo Dewitt NP [address] [place] [address] documented as of this encounter [...] ? SANDIE DUVALL ? Accession #: ? [id number] ? : ? 1960 (Age: 54) ??F [...] Noe 10/26/2014 09:18 AM End of Report [facility] 10/25/2014 9:00 EST 10/26/2014 9:00 EST us Lyudmila Contreras NP PATHOLOGY ORDERABLES Final Resu lt [facility] [address] [place] [address] documented in this encounter Visit Diagnoses Not on filedocumented in this encounter Care Teams Assistant Designer Relationship Specialty Start Date End Date Unknown, Provider, PCP - General 07/18/14 08/31/19 documented as of this encounter
--- OUTSIDE RECORDS SUMMARY | 2024-10-22 13:19 | XMS_ITS | Encounter Summary ---
Author Organization [facility] [place] [address] Care Team Providers Care Enterprise Systems Manager Name Role Phone Osbaldo Dewitt APRN Primary Care Provider [phone] Encounter Details Date Type Department Care Team (Late st Contact Info) Description 05/16/2023 Orders [place] [address] Rosalee Powers PA [facility] DR ORTHOPAEDIC [place] [address] Social History Tobacco Use Types Packs/Day Years [...] on filedocumented in this encounter Care Teams Enterprise Systems Manager Relationship Specialty Start Date End Date Osbaldo Dewitt APRN [address] [place] [phone] PCP - General Family Medicine 12/31/22 documented as of this encounter
--- OUTSIDE RECORDS SUMMARY | 2024-10-22 13:19 | XMS_ITS | Encounter Summary ---
Author Organization [facility] Address [facility] [place] [address] Care Team Providers Care Biological Chemist Name Role Phone Osbaldo Dewitt Yaron PAGE Primary Care Provider [phone] Encounter Details Date Type Department Care Team (Late st Contact Info) Description 12/30/2023 Orders [place] [address] Joan Sow PA [facility] [place] [address] Social History Tobacco Use Types Packs/Day Years [...] on filedocumented in this encounter Care Teams Biological Chemist Relationship Specialty Start Date End Date Osbaldo Dewitt APRN [address] [place] [phone] PCP - General Family Medicine 12/31/22 documented as of this encounter
--- OUTSIDE RECORDS SUMMARY | 2024-10-22 13:19 | XMS_ITS | Encounter Summary ---
Author Organization [facility] [place] [address] Care Team Providers Care Grocery Department Manager Name Role Phone Osbaldo Dewitt APRN Primary Care Provider [phone] Reason for Visit * Consultation (Routine) - Closed Specialty Diagnoses / Procedures Referred By Chance le Referred To Contact Rheumatology Diagnoses Glenohumeral arthritis, left Synovitis Rosalee Powers PA [facility] [place] [address] [facility] [address] [place] [phone] Referral ID Status Reason Start Date Expiration Date V isits Requested Visits Authorized [id number] Closed Consult, Test & Treat 03/25/2023 03/24/2024 1 1 Encounter Details Date Type Department Care Team (Latest Contact Info) Description 05/06/2023 11:00 AM EDT Office [place] [address] Remi Schmitt MD [facility] [place] [address] s/p left anatomic stemless TSA, [...] records available at the time of the [facility] appointment with in the medical record and [...] histories were reviewedand updated as appropriate within the medical center. Physical Exam: BP 131/72 (BP Location (NBP): [...] Bunion documented in this encounter Care Teams Grocery Department Manager Relationship Specialty Start Date End Date Osbaldo Dewitt APRN [address] [place] [phone] PCP - General Family Medicine 12/31/22 documented as of this encounter
--- OUTSIDE RECORDS SUMMARY | 2024-10-22 13:19 | XMS_ITS | Clinical Summary ---
Author Organization [facility] Address [facility] [place] [address] Care Team Providers Care Data Analytics Chief Scientist Name Role Phone Esdras Osbaldo Piña APRN Primary Care Provider [phone] Allergies Active Allergy Reactions Criticality Noted Date [...] 02/03/2023 Active fluticasone propionate (Flonase) 50 mcg/actuation [place], Suspension 2 sprays by Nasal route Once [...] g vaginally. Twice weekly prn 12/07/2020 Active axsjiik-grmc-cjykt-oreg -capryl 100 mg-150 mg- 50 mg-150 mg [...] series) 06/06/2024 Medical Devices Implanted Type Area Freight Router Device Identifier Shelf Expiration Date Model / Serial / Lot Cement Bone Medium Viscosity 20gm Half Dose Pmma Cmw ([id number]) - [id number] Implanted:Qty : 1 on 03/11/2023 by Christine Colby MD at [facility] IMPLANTS Left: Shoulder DEWEY [employer] DEWEY [facility] [id number] 08/05/2025 [id number] / / [id number] Component Glenoid Sz 4 4 Peg Modular [place] (9150070) (Autoreq) - [id number] Implanted:Qty : 1 on 03/11/2023 by Christine Colby MD at [facility] IMPLANTS Left: Shoulder CHANDLER BIOMET - CHANDLER BIO [id number] 01/13/2028 [id number] / / [id number] Component Glenoid Modular Post [place] Trabecular Metal (9877964) (Autoreq) - [id number] Implanted:Qty : 1 on 03/11/2023 by Christine Colby MD at [facility] IMPLANTS Left: Shoulder CHANDLER BIOMET - CHANDLER BIO [id number] 12/07/2032 [id number] / / [id number] Humeral Anchr Shldr 33g44un Prsft Stem Free Med Ti Sidus (7704846) (Autoreq) - [id number] Implanted:Qty : 1 on 03/11/2023 by Christine Colby MD at [facility] IMPLANTS Left: Shoulder CHANDLER BIOMET - CHANDLER BIO [id number] 11/30/2031 01.76739.12 0 / / [id number] Head Humeral Shoulder 58s59bk Stem Free Cocr Sidus (8859446) (Autoreq) - [id number] Implanted:Qty : 1 on 03/11/2023 by Christine Colby MD at [facility] IMPLANTS Left: Shoulder CHANDLER BIOMET - CHANDLER BIO [id number] 07/25/2031 01.15034.42 0 / / [id number] Humeral Anchr Shldr 31w85bx Prsft Stem Free Med Ti Sidus (1689076) (Autoreq) - [id number] Implanted:Qty : 1 on 12/09/2023 by Christine Colby MD at [facility] IMPLANTS Right: Shoulder CHANDLER BIOMET - CHANDLER BIO [id number] 11/21/2032 01.04902.12 0 / / [id number] Head Humeral Shoulder 48s81tn Stem Free Sidus (3868100) (Autoreq) - [id number] Implanted:Qty : 1 on 12/09/2023 by Christine Colby MD at [facility] IMPLANTS Right: Shoulder CHANDLER BIOMET - CHANDLER BIO [id number] 03/14/2033 [id number] / / [id number] Cement Bone Medium Viscosity 20gm Half Dose Pmma Cmw (3319417) - [id number] Implanted:Qty : 1 on 12/09/2023 by Christine Colby MD at [facility] IMPLANTS Right: Shoulder DEWEY [employer] DEWEY [facility] [id number] 04/04/2026 3322-020 / / [id number] Component Glenoid Sz 4 4 Peg Modular [place] (3476689) (Autoreq) - [id number] Implanted:Qty : 1 on 12/09/2023 by Christine Colby MD at [facility] IMPLANTS Right: Shoulder CHANDLER BIOMET - CHANDLER BIO [id number] 11/06/2028 [id number] / / [id number] Component Glenoid Modular Post [place] Trabecular Metal (7969190) (Autoreq) - [id number] Implanted:Qty : 1 on 12/09/2023 by Christine Colby MD at [facility] IMPLANTS Right: Shoulder CHANDLER BIOMET - CHANDLER BIO [id number] 09/22/2033 [id number] / / [id number] Explanted Type Area Freight Router Device Identifier Shelf Expiration Date Model / Serial / Lot Pin Fix [id number] Threaded Sgl End Ss Kay ([id number]) (Autoreq) - [id number] Explanted:Qt y: 1 on 03/11/2023 by Christine Colby MD at [facility] IMPLANTS Left: Shoulder CHANDLER BIOMET - CHANDLER BIO [id number] 01/01/2033 [id number] / / [id number] Advance Directives * Full Code (Latest Code Status on File) Date Activated Date Inactivated Comments 03/11/2023 9:21 AM 12/09/2023 5:43 AM Question Answer Comments Does patient have capacity to make decision: Yes Care Teams Data Analytics Chief Scientist Relationship Specialty Start Date End Date Osbaldo Dewitt APRN [address] [place] [phone] PCP - General Family Medicine 12/31/22
--- OUTSIDE RECORDS SUMMARY | 2024-10-22 13:19 | XMS_ITS | Encounter Summary ---
Author Organization [facility] Address [address] [place] [address] Care Team Providers Care Ton Cylinder Inspector Name Role Phone Unknown, Provider Primary Care Provider Unava ilable Encounter Details Date Type Department Care Team (Late st Contact Info) Description 07/08/2016 Historical Results Only [facility] Radiology Results [address] [place] [address] Osbaldo Dewitt NP [address] [place], [place] [address] Social History Tobacco Use Types Packs/Day Years [...] Office Visit [facility] Integrative Family [facility] [address], [place] [address] Osbaldo Dewitt NP [address], [place] [id number] documented as of this encounter Procedures Procedure [...] will contact ? your patient directly. ? HUMAN RESOURCES SERVICES SPECIALIST:kad ?Reported By: Chet De La O MD ? CC: ? Transcribed Date/Time: 07/09/2016 (924) ? Hardware Installer: ANI ? Printed Date/Time: 03/19/2019 (0032) ? PAGE 1 ? Signed Report ? [...] is needed we willcontact your patient directly. HUMAN RESOURCES SERVICES SPECIALIST:juliana Reported By: Chet De La O MD CC: Transcribed Date/Time: 07/09/2016 (924) Hardware Installer: ANI Printed Date/Time: 03/19/2019 (6473) PAGE 1 Signed Report us Osbaldo Dewitt MORTGAGE FIELD INSPECTOR IMG MAMMOGRAPHY ORDERABLES Fin al Result documented in this encounter Visit Diagnoses Not on filedocumented in this encounter Care Teams Ton Cylinder Inspector Relationship Specialty Start Date End Date Unknown, Provider, PCP - General 07/18/14 08/31/19 documented as of this encounter
--- OUTSIDE RECORDS SUMMARY | 2024-10-22 13:19 | XMS_ITS | Encounter Summary ---
Author Organization [facility] Address [address] [place] [address] Care Team Providers Care Equipment Installation Professional Name Role Phone Unknown, Provider Primary Care Provider Unava ilable Encounter Details Date Type Department Care Team (Latest Contact Info) Description 07/08/2016 12:36 EDT - 07/08/2016 23:59 EDT Hospital Encounter [facility] [address] [place] [address] Unknown, Provider, Discharge Disposition: Home or Self [...] Visit [facility] Integrative Family Medicine [address] [phone] Osbaldo Dewitt, ECONOMIC HISTORY TEACHER [address] [place] [address] documented as of this encounter Visit Diagnoses Not on filedocumented in this encounter Care Teams Equipment Installation Professional Relationship Specialty Start Date End Date Unknown, Provider, PCP - General 07/18/14 08/31/19 documented as of this encounter
--- OUTSIDE RECORDS SUMMARY | 2024-10-22 13:19 | XMS_ITS | Encounter Summary ---
Author Organization [facility] Address [address] [place] [address] Care Team Providers Care Fruit And Vegetable Classer Name Role Phone Unavailable Primary Care Provider Unavailabl e Encounter Details Date Type Department Care Team (Latest Contact Info) Description 07/07/2014 13:34 EDT - 07/07/2014 23:59 EDT Hospital Encounter [facility] [address] [place] [address] Unknown, Provider, Discharge Disposition: Home or Self [...] Description 11/11/2024 15:[address] [facility] Integrative Family Medicine [facility] [address] [place] [address] Osbaldo Dewitt, OYSTER HARVESTER [address] [place] [address] documented as of this encounter Visit Diagnoses Not on filedocumented in this encounter
--- OUTSIDE RECORDS SUMMARY | 2024-10-22 13:19 | XMS_ITS | Encounter Summary ---
Author Organization [facility] [place] [address] Care Team Providers Care Supervisor Air Conditioning Installer Name Role Phone Osbaldo Dewitt APRN Primary Care Provider [phone] Reason for Visit * Reason Onset Date Comments Pre Procedure Call 07/22/2023 Encounter Details Date Type Department Care Team (Late st Contact Info) Description 07/22/2023 [place] [address] Veto Odell MD [facility] [place] [address] Pre Procedure Call (/) Social History Tobacco [...] filedocumented in this encounter Care Teams Supervisor Air Conditioning Installer Relationship Specialty Start Date End Date Osbaldo Dewitt APRN [address] [place] [phone] PCP - General Family Medicine 12/31/22 documented as of this encounter
--- OUTSIDE RECORDS SUMMARY | 2024-10-22 13:19 | XMS_ITS | Encounter Summary ---
Author Organization [facility] Address [facility] [place] [address] Care Team Providers Care Buffing And Polishing Wheel Repairer Name Role Phone Osbaldo Dewitt APRN Primary Care Provider [phone] Encounter Details Date Type Department Care Team [...] on filedocumented in this encounter Care Teams Buffing And Polishing Wheel Repairer Relationship Specialty Start Date End Date Osbaldo Dewitt APRN [address] [place] [phone] PCP - General Family Medicine 12/31/22 documented as of this encounter
--- OUTSIDE RECORDS SUMMARY | 2024-10-22 13:19 | XMS_ITS | Encounter Summary ---
Author Organization [facility] Address [facility] [place] [address] Care Team Providers Care Auditing Manager Name Role Phone Osbaldo Dewitt APRN Primary Care Provider [phone] Encounter Details Date Type Department Care Team [...] on filedocumented in this encounter Care Teams Auditing Manager Relationship Specialty Start Date End Date Osbaldo Dewitt APRN [address] [place] [phone] PCP - General Family Medicine 12/31/22 documented as of this encounter
--- OUTSIDE RECORDS SUMMARY | 2024-10-22 13:19 | XMS_ITS | Encounter Summary ---
[place] [address] Care Team Providers Care Dough Mixer Operator Name Role Phone Osbaldo Dewitt APRN Primary Care Provider [phone] Encounter Details Date Type Department Care Team (Late st Contact Info) Description 12/09/2023 [place] [address] Eric Damon MD Social History [...] on filedocumented in this encounter Care Teams Dough Mixer Operator Relationship Specialty Start Date End Date Osbaldo Dewitt APRN [address] [place] [phone] PCP - General Family Medicine 12/31/22 documented as of this encounter
--- OUTSIDE RECORDS SUMMARY | 2024-10-22 13:19 | XMS_ITS | Encounter Summary ---
Author Organization [facility] Address [facility] [place] [address] Care Team Providers Care Fixer Supervisor Name Role Phone Osbaldo Dewitt CAMILO Primary Care Provider [phone] Encounter Details Date Type Department Care Team (Latest Contact Info) Description 01/27/2024 7:28 AM EDT - 01/27/2024 11:59 PM EDT Hospital Encounter XRay at [address] [place] [address] Christine Colby MD [facility] [place] [address] s/p right anatomic stemless TSA, 12/09/23 (Dr Colby); s/p left anatomic stemless TSA, 03/11/23 (Dr Colby) Discharge Disposition: Home Social History Tobacco Use Types Packs/Day Years Used Date Smoking Tobacco: Former Cigarettes Smokeless Tobacco: Never Alcohol Use Standard Drinks/Week Comments Yes 14 (1 standard drink = 0.6 oz pu re alcohol) [facility] Inpatient Questions Answer Date Recorded Does Anyone [...] 1,000 mg by mouth 2 times daily. brzxcus-onpx-tcpyw-oreg-ca pryl 100 mg-150 mg- 50 mg-150 mg Capsule Take by mouth. Just tumeric venlafaxine XR (Effexor-XR) 37.5 mg ER 24 hr capsule Take 37.5 mg by mouth daily. 02/03/2023 omeprazole (PriLOSEC) [address] capsule Take 20 mg by mouth nightly. 01/31/2023 hydroCHLOROthiazide (Hydrodiuril) 25 mg tablet Take 25 mg by mouth daily. 02/03/2023 fluticasone propionate (Flonase) 50 mcg/actuation [place], Suspension 2 sprays by Nasal route Once [...] (Generic) (01/27/2024 7:47 AM EDT) WORKSTATION ID [id number] [facility] Anatomical Region Laterality Modality Shoulder Bilateral Digital [...] who have questions please contact the health medicare nurse that requested your imaging first. ? Narrative [...] spine degeneration is partially included in the aznyq-oj-qooe. Visualized lung mensah are clear. Procedure Note [...] Cervicothoracic spine degeneration is partially included in lzxymdhh-pb-wwrr. Visualized lung mensah are clear. IMPRESSION Bilateral [...] patients who have questions please contactthe health medicare nurse that requested your imaging first. Christine Colby MD IMG DX ORDERABLES documented in this encounter Visit Diagnoses Diagnosis s/p right anatomic stemless TSA, 12/09/23 (Dr Colby) s/p left anatomic stemless TSA, 03/11/23 (Dr Colby) documented in this encounter Care Teams Fixer Supervisor Relationship Specialty Start Date End Date Obsaldo Dewitt APRN [address] [place] [phone] PCP - General Family Medicine 12/31/22 documented as of this encounter
--- OUTSIDE RECORDS SUMMARY | 2024-10-22 13:19 | XMS_ITS | Encounter Summary ---
Author Organization [facility] Address [facility] [place] [address] Care Team Providers Care Operating Room Technician Name Role Phone Osbaldo Dewitt APRN Primary Care Provider [phone] Encounter Details Date Type Department Care Team [...] on filedocumented in this encounter Care Teams Operating Room Technician Relationship Specialty Start Date End Date Osbaldo Dewitt APRN [address] [place] [phone] PCP - General Family Medicine 12/31/22 documented as of this encounter
--- OUTSIDE RECORDS SUMMARY | 2024-10-22 13:19 | XMS_ITS | Encounter Summary ---
Author [facility] [place] [address] Care Team Providers Care Yard Specialist Name Role Phone Osbaldo Dewitt APRN Primary Care Provider [phone] Encounter Details Date Type Department Care Team (Late st Contact Info) Description 07/14/2023 External [place] [address] Aditya Boss MD [facility] [place] [address] Social History Tobacco Use Types Packs/Day Years [...] on filedocumented in this encounter Care Teams Yard Specialist Relationship Specialty Start Date End Date Osbaldo Dewitt APRN [address] [place] [phone] PCP - General Family Medicine 12/31/22 documented as of this encounter
--- OUTSIDE RECORDS SUMMARY | 2024-10-22 13:19 | XMS_ITS | Encounter Summary ---
Author Organization [facility] Address [facility] [address] Care Team Providers Care Bible Teacher Name Role Phone Osbaldo Dewitt Yaron PAGE Primary Care Provider [phone] Encounter Details Date Type Department Care Team (Late st Contact Info) Description 03/10/2024 8:10 AM EDT [place] [phone] Christine Colby MD [facility] [place] [address] Social History Tobacco Use Types Packs/Day Years [...] M.S. Professor of Orthopaedic Surgery [facility] [employer] [facility] Department of [place] [address] This note was transcribed with the use of Asset [employer] voice recognition software. documented in this encounter Plan of Treatment Not on file documented as of this encounter Visit Diagnoses Not on filedocumented in this encounter Care Teams Bible Teacher Relationship Specialty Start Date End Date Osbaldo Dewitt APRN [address] [place] [phone] PCP - General Family Medicine 12/31/22 documented as of this encounter
--- OUTSIDE RECORDS SUMMARY | 2024-10-22 13:19 | XMS_ITS | Encounter Summary ---
[place] [address] Care Team Providers Care Fermentation Manager Name Role Phone Osbaldo Dewitt APRN Primary Care Provider Reason for Referral * Occupational Therapy (Routine) - Closed Specialty Diagnoses / Procedures Referred By Contac t Referred To Contact Occupational Therapy Diagnoses Neuralgia and neuritis Chante Salas APRN [facility] [place]THOP[place] [address] [address] Referral ID Status Reason Start Date Expiration Date V isits Requested Visits Authorized [id number] Closed Evaluate and Treat 06/10/2023 12/07/2023 12 12 * Diagnostic Test (Routine) - Closed Specialty Diagnoses / Procedures Referred By Contmorgan t Referred To Contact Neurology Diagnoses Neuralgia and neuritis Chante Salas APRN [facility] [place] [address] [facility] Neurology [address] [place] [phone] Referral ID Status Reason Start Date Expiration Date V isits Requested Visits Authorized [id number] Closed Test Only 06/10/2023 06/09/2024 1 1 Reason for Visit * Reason Comments Follow Up Surgery 03-11-23 L TSA Encounter Details Date Type Department Care Team (Late st Contact Info) Description 06/10/2023 8:40 AM EDT Office [place] [address] Chante Salas APRN [facility] [place] [address] Status post replacement of left shoulder joint [...] NAME: Sandie Manriquez AGE: 63 y.o. MR#: [id number] DATE OF VISIT: 06/10/2023 PERTINENT SURGICAL HISTORY: [...] unspecified documented in this encounter Care Teams Fermentation Manager Relationship Specialty Start Date End Date Osbaldo Dewitt APRN [address] [place] [phone] PCP - General Family Medicine 12/31/22 documented as of this encounter
--- OUTSIDE RECORDS SUMMARY | 2024-10-22 13:19 | XMS_ITS | Encounter Summary ---
Author Organization [facility] Address [facility] [place] [address] Care Team Providers Care Yarder Puncher Name Role Phone EsdrasOsbaldo weston Yaron PAGE Primary Care Provider [phone] Reason for Visit * Reason Onset Date Comments Appointment 12/26/2023 Post Procedure Call 12/26/2023 Encounter Details Date Type Department Care Team (Late st Contact Info) Description 12/26/2023 [place] [phone] Christine Colby MD [facility] DR [place] [address] Appointment; Post Procedure Call Social History Tobacco Use Types Packs/Day Years Used Date Smoking Tobacco: Former Cigarettes Smokeless Tobacco: Never Alcohol Use Standard Drinks/Week Comments Yes 14 (1 standard drink = 0.6 oz pu re alcohol) [facility] Inpatient Questions Answer Date Recorded Does Anyone [...] MA - 12/26/2023 10:46 AM EDT Patient's oDesk message forwarded to Joan for appt type recommendation and incision review. * Telephone Encounter - Jean Carlos Ibarra - 12/26/2023 10:12 AM EDT Who is calling? Cheryl Best call back number: [phone] Best time to call back between 8:00 am & 5:00 pm: Anytime Can we leave a message? yes When was your procedure? 12/09/23 Who was your surgeon? Dr. Colby What procedure did you have done? 12/09/2023 0730 TOTAL SHOULDER ARTHROPLASTY (WRVU 22.13) - Right MODIFIER SIDUS SHOULDER CHANDLER BIOMET TENODESIS,BICEPS TENDON (PROXIMAL) (WRVU 10.17) - Right Christine Colby (Primary) Bird Corona Nicole T [facility] MAIN OR Discharged What is the question [...] Pat is also going to send a oDesk message with an attached picture of her [...] on filedocumented in this encounter Care Teams Yarder Puncher Relationship Specialty Start Date End Date Osbaldo Dewitt APRN [address] [place] [phone] PCP - General Family Medicine 12/31/22 documented as of this encounter
--- OUTSIDE RECORDS SUMMARY | 2024-10-22 13:19 | XMS_ITS | Encounter Summary ---
Author Organization [facility] Address [facility] [place] [address] Care Team Providers Care Converter Supervisor Name Role Phone Osbaldo Dewitt APRN Primary Care Provider [phone] Encounter Details Date Type Department Care Team [...] on filedocumented in this encounter Care Teams Converter Supervisor Relationship Specialty Start Date End Date Osbaldo Dewitt APRN [address] [place] [phone] PCP - General Family Medicine 12/31/22 documented as of this encounter
--- OUTSIDE RECORDS SUMMARY | 2024-10-22 13:19 | XMS_ITS | Encounter Summary ---
Author Organization [facility] Address [address] [place] [address] Care Team Providers Care Anthropometrist Name Role Phone Unknown, Provider Primary Care Provider Unava ilable Encounter Details Date Type Department Care Team (Latest Contact Info) Description 10/25/2014 14:28 EST - 10/25/2014 14:29 EST Hospital Encounter [address] [address] Emelyn Fagan MD [address] [facility] [address] [place] [address] Discharge Disposition: Home or Self [...] Description 11/11/2024 15:30 EST Office Visit [facility] Family Medicine [facility] [address] [place], [place] [phone] Osbaldo Dewitt, SG [address], [place] [phone] documented as of this encounter Visit Diagnoses Not on filedocumented in this encounter Care Teams Anthropometrist Relationship Specialty Start Date End Date Unknown, Provider, PCP - General 07/18/14 08/31/19 documented as of this encounter
--- OUTSIDE RECORDS SUMMARY | 2024-10-22 13:19 | XMS_ITS | Encounter Summary ---
Author Organization [facility] Address [facility] [place] [address] Care Team Providers Care Wildlife Technician Name Role Phone Osbaldo Dewitt APRN Primary Care Provider [phone] Reason for Visit * Reason Comments Post Op DOS:12-09-23 RIGHT TSA Encounter Details Date Type Department Care Team (Late st Contact Info) Description 12/30/2023 1:30 PM EDT Office [place] [address] Joan Sow PA [facility] [place] [address] s/p right anatomic stemless TSA, 12/09/23 (Dr Colby); s/p left anatomic stemless TSA, 03/11/23 (Dr Colby) Social History Tobacco Use Types Packs/Day Years Used Date Smoking Tobacco: Former Cigarettes Smokeless Tobacco: Never Alcohol Use Standard Drinks/Week Comments Yes 14 (1 standard drink = 0.6 oz pu re alcohol) [facility] Inpatient Questions Answer Date Recorded Does Anyone [...] Name: Sandie Manriquez AGE: 63 y.o. MR#: [id number] Date of Visit: 12/30/2023 Procedure: right anatomic [...] She does have follow-up scheduled with her library circulation technician. Denies fevers, chills, shortness of breath, chest [...] No new images today Survey Responses: 12/26/2023 [facility] Surgical Followup Visit PROMIS-10 General Health Good [...] since surgery Yes Where was ER located? [place], [place] Date of ER visit 12/13/2023 Reason for ER visit A-Fib Admitted to hospital since recent ortho surgery No Additional surgery on same body part No Satisfaction with Treatment Satisfied Choose Same Treatment Again Definitely yes 12/26/2023 [facility]ope[facility] Response ASES VAS-RIGHT 1 ASES ADL-RIGHT ARM [...] PM The above documentation was completed using [employer] voice recognition software. documented in this encounter Plan of Treatment Not on file documented as of this encounter Results * XR Shoulder Bilat (Generic) (01/27/2024 7:47 AM EDT) [employer] WORKSTATION ID [id number] RAD Anatomical Region Laterality Modality Shoulder Bilateral [...] who have questions please contact the health school child care attendant that requested your imaging first. ? Electronically signed by: Ruth Gamboa MD, [facility] ([phone]), at 01/27/2024 1:24 PM Narrative 01/27/2024 1:24 [...] spine degeneration is partially included in the szway-hl-zurv. Visualized lung mensah are clear. Procedure Note [...] Cervicothoracic spine degeneration is partially included in xdblfzys-af-ifwa. Visualized lung mensah are clear. IMPRESSION Bilateral [...] patients who have questions please contactthe health school child care attendant that requested your imaging first. Christine Colby MD IMG DX ORDERABLES documented in this encounter Visit Diagnoses Diagnosis s/p right anatomic stemless TSA, 12/09/23 (Dr Colby) s/p left anatomic stemless TSA, 03/11/23 (Dr Colby) s/p right anatomic stemless TSA, 12/09/23 (Dr Colby) s/p left anatomic stemless TSA, 03/11/23 (Dr Colby) documented in this encounter Care Teams Wildlife Technician Relationship Specialty Start Date End Date Osbaldo Dewitt APRN [address] [place] [phone] PCP - General Family Medicine 12/31/22 documented as of this encounter
--- OUTSIDE RECORDS SUMMARY | 2024-10-22 13:19 | XMS_ITS | Encounter Summary ---
Author Organization [facility] Address [facility] [place] [address] Care Team Providers Care Reel Worker Name Role Phone Osbaldo Dewitt APRN Primary Care Provider [phone] Encounter Details Date Type Department Care Team [...] on filedocumented in this encounter Care Teams Reel Worker Relationship Specialty Start Date End Date Osbaldo Dewitt APRN [address] [place] [address] [phone] PCP - General Family Medicine 12/31/22 documented as of this encounter
--- OUTSIDE RECORDS SUMMARY | 2024-10-22 13:19 | XMS_ITS | Encounter Summary ---
Author Organization [facility] Address [facility] [place] [address] Care Team Providers Care Condenser Tester Name Role Phone Osbaldo Dewitt APRN Primary Care Provider [phone] Encounter Details Date Type Department Care Team [...] on filedocumented in this encounter Care Teams Condenser Tester Relationship Specialty Start Date End Date Osbaldo Dewitt APRN [address] [place] [address] [phone] PCP - General Family Medicine 12/31/22 documented as of this encounter
--- OUTSIDE RECORDS SUMMARY | 2024-10-22 13:19 | XMS_ITS | Encounter Summary ---
Author Organization [facility] [place] [address] Care Team Providers Care Scientific Linguist Name Role Phone Osbaldo Dewitt CAMILO Primary Care Provider [phone] Reason for Visit * Reason Onset Date Comments Prior Authorization 08/11/2023 Encounter Details Date Type Department Care Team (Late st Contact Info) Description 08/11/2023 Telephone [place] [address] Christine Colby MD [facility] [place] [address] Prior Authorization Social History Tobacco Use Types [...] EST Contacted Munir for prior authorization at [phone] and [phone] Authorization Status: Approved Prior Authorization Approval Number: [id number] Valid dates: 08/11/23-02/07/24 Order and demographics faxed to [facility] at [phone] Left message on patient's voice mail to inform authorization was complete and to contact [facility] to schedule study. documented in this encounter Plan of Treatment Not on file documented as of this encounter Visit Diagnoses Not on filedocumented in this encounter Care Teams Scientific Linguist Relationship Specialty Start Date End Date Osbaldo Dewitt APRN [address] [place] [address] [phone] PCP - General Family Medicine 12/31/22 documented as of this encounter
--- OUTSIDE RECORDS SUMMARY | 2024-10-22 13:19 | XMS_ITS | Encounter Summary ---
Author Organization [facility] Address [facility] [place] [address] Care Team Providers Care Tow Car Driver Name Role Phone Osbaldo Dewitt APRN Primary Care Provider [phone] Encounter Details Date Type Department Care Team [...] on filedocumented in this encounter Care Teams Tow Car Driver Relationship Specialty Start Date End Date Osbaldo Dewitt APRN [address] [place] [address] [phone] PCP - General Family Medicine 12/31/22 documented as of this encounter
--- OUTSIDE RECORDS SUMMARY | 2024-10-22 13:19 | XMS_ITS | Encounter Summary ---
Author Organization [facility] Address [facility] [place] [address] Care Team Providers Care Senior Benefits Analyst Name Role Phone Osbaldo Dewitt APRN Primary Care Provider [phone] Encounter Details Date Type Department Care Team [...] filedocumented in this encounter Care Teams Senior Benefits Analyst Relationship Specialty Start Date End Date Osbaldo Dewitt APRN [address] [place] [address] [phone] PCP - General Family Medicine 12/31/22 documented as of this encounter
--- OUTSIDE RECORDS SUMMARY | 2024-10-22 13:19 | XMS_ITS | Encounter Summary ---
Author Organization [facility] [place] [address] Care Team Providers Care Ironworker Helper Shop Name Role Phone Osbaldo Dewitt Yaron PAGE Primary Care Provider [phone] Reason for Visit * Auth/Cert (Routine) Specialty Diagnoses / Procedures Referred By Chance t Referred To Contact Diagnoses shoulder arthritis Procedures PRO ARTHROPLASTY GLENOHUMERAL JOINT TOTAL SHOULDER PRO REPAIR BICEPS LONG TENDON TOTAL SHOULDER ARTHROPLASTY (WRVU 22.13) MODIFIER BEACH CHAIR SCHLEIN TENODESIS,BICEPS TENDON (PROXIMAL) (WRVU 10.17) Airam Colby MD [facility] [place] [address] [facility] Referral ID Status Reason Start Date Expiration Date Visits Re quested Visits Authorized [id number] 1 1 Encounter Details Date Type Department Care Team (Latest Contact Info) Description 12/09/2023 5:42 AM EST - 12/09/2023 12:33 PM [facility] Hospital En[place] [address] Airam Colby MD [facility] [place] [address] Discharge Disposition: Home Social History Tobacco Use [...] 24 hours, please call the Anesthesiology Department: [phone] Shortness of breath: If you have severe shortness of breath that seems to go on and on, please go to the nearest ER (emergency room). If a nerve block lasts longer than 48 hours, take action. If the nerve block does not wear off within 48 hours, please call the Anesthesiology Department: [phone] Protect the part of your body that [...] the Anesthesiology Department with concerns or questions: [phone] After hours: Call the hospital staple shear operator and ask for the anesthesiologist (titi oliveros) refrigeration engineer: [phone] Updated: 08/13/21Scopolamine Patch Discharge Instructions You are [...] Program 8a-5pm Friday-Friday. All other times, call [phone] and ask for the anesthesiologist refrigeration engineer. * Patient Instructions* Bird Corona MD [...] bowel movement. You can also take an ssmi-euv-btcaosc medication, Miralax if needed tocombat constipation. 2. [...] air or lightly covered. Call your doctor ([phone]) if you develop: Fever greater than 100.5 [...] 1. You will have follow-up appointments at [facility] as indicated below in Future Appointment and Orders. Future Appointments Date Time Provider Department Center 12/26/2023 2:30 PM Joan Sow PA [facility] ORTH 3A [facility] If you have questions or concerns: Friday [...] 1,000 mg by mouth 2 times daily. ogvejpi-ekry-nuzpt-oreg-c vernell 100 mg-150 mg- 50 mg-150 mg Capsule Take by mouth. Just tumeric venlafaxine XR (Effexor-XR) 37.5 mg ER 24 hr capsule Take 37.5 mg by mouth daily. 02/03/2023 omeprazole (PriLOSEC) [address] capsule Take 20 mg by mouth nightly. 01/31/2023 hydroCHLOROthiazide (Hydrodiuril) 25 mg tablet Take 25 mg by mouth daily. 02/03/2023 fluticasone propionate (Flonase) 50 mcg/actuation [place], Suspension 2 sprays by Nasal route [...] 22.13) performed by Airam Colby MD at [facility] MA[facility] OR PRO REPAIR BICEPS LONG TENDON Left 03/11/2023 TENODESIS,BICEPS TENDON (PROXIMAL) (WRVU 10.17) performed by Airam Colby MD at [facility] MA[facility] OR Home Medications: Medications Prior [...] 5 mg by mouth Twice daily. 12/05/2023 hhfghcp-gfcw-yjbvy-oreg-capryl 100 mg-150 mg- 50 mg-150 mg Capsule Take by mouth. Just tumeric 12/06/2023 fluticasone propionate (Flonase) 50 mcg/actuation [place], Suspension 2 sprays by Nasal route [...] Colby M.D., M.S. Professor of Orthopaedic Surgery [employer] [facility] Department [place] [address] documented in this encounter Miscellaneous Notes * Op Note - Airam Colby MD - 12/09/2023 7:55 AM EST [facility] Operative Note Patient Name: Sandie Manriquez : [id number] MR#: [id number] Case Date: 12/09/2023 Surgeon: Surgeon(s) and Role: * Airam Colby MD - Primary * Bird Corona MD - Resident - Assisting * Joan Sow PA - Physician Quality Cloth Tester Preoperative diagnosis: shoulder pain Postoperative diagnosis: shoulder [...] Used: Chandler Sidus TSA System with Chandler [place] Glenoid [place]: medium Head: 44x16 Glenoid: Size 4 with 4 peg configuration and center TM post Pre-operative Evaluation: The patient was identified in the preoperative holding area. After confirming that the right shoulder was the correct site of surgery with both the patient and the informed consent, a green salamatof was placed on the operative shoulder. The [...] 8:32 AM EST Repair Biceps Long Tendon (24138) 12/09/2023 7:24 AM EST shoulder pain MODIFIER SIDUS SHOULDER CHANDLER BIOMET 12/09/2023 7:24 AM EST shoulder pain Arthroplasty, Glenohumeral Joint Total Shoulder (78456) 12/09/2023 7:24 AM EST shoulder pain TOTAL [...] have questions please contact the health care partner that requested your imaging first. ? Narrative [...] who have questions please contactthe health care partner that requested your imaging first. Airam Colby MD IMG DX ORDERABLES * Surgical Pathology Report (12/09/2023 8:32 AM EST) Final Diagnosis [id number] ? [facility]; The signing pathologist has (i) [...] MD, Simi Verified: ??12/12/2023 9:48 Performed at: ??-[facility] Dept. of Pathology, [place] [address] Sap Architect: Darion Andrew MD, FCAP, ??CLIA Certificate: [id number] SPECIMEN(S) SUBMITTED A - Right shoulder synovium, rule out ?? inflammatory ??stenosis, excision (1) CLINICAL INFORMATION s/p TSA Right shoulder synovium, rule out inflammatory stenosis SPECIMEN PROCESSING A - Labeled/Fixative : Right shoulder synovium, rule out inflammatory stenosis, fresh. Quantity/Size: Single, 3.2 x 2.1 x 1.0 cm. Tissue Description: Irregular fragment of pink-red fibrous tissue. Sections/Process ing: Customer Advocate sections in 2 cassettes labeled A1-A2. ??pps 12/12/2023 9:48 AM EST [facility] SYNOVIUM BIOPSY SPECIMEN / Unknown 12/09/2023 8:32 AM EST 12/09/2023 8:32 AM EST Airam Colby MD PATHOLOGY/CYTOLOGY O NATHANIEL Performing Organization Address City/[facility]/ZIP Co de Phone Number [facility] [address] [place] [address] * Specimen to Pathology (12/09/2023 8:32 AM EST) AP Specimen 12/09/2023 8:32 AM EST 12/09/2023 8:32 AM EST Narrative [facility] - 12/09/2023 8:32 AM EST Specimen requisition ordered. ??Separate Pathology report to follow Airam Colby MD PATHOLOGY/CYTOLOGY O NATHANIEL Performing Organization Address City/[facility]/ZIP Co de Phone Number [facility] [place] [address] * SCAN DOC: IMPLANTABLE DEVICES (12/09/2023 12:00 [...] Procedure), Routine 0657 (Given - Provid er: Karoilna Abdul RN) gelatin adsorbable 12-7 mm sponge [...] MD) documented in this encounter Care Teams Ironworker Helper Shop Relationship Specialty Start Date End Date Osbaldo Dewitt APRN [address] [place], [place] [phone] PCP - General Family Medicine 12/31/22 documented as of this encounter
--- OUTSIDE RECORDS SUMMARY | 2024-10-22 13:19 | XMS_ITS | Encounter Summary ---
Author Organization [facility] Address [address] [place] [address] Care Team Providers Care Kettle Operator Head Name Role Phone Unknown, Provider Primary Care Provider Unava ilable Encounter Details Date Type Department Care Team (Late st Contact Info) Description 09/05/2016 Historical Results Only [facility] Lab - Main [place] [address] [place] [address] Bird Watkins MD Social History Tobacco Use [...] Info) Description 11/11/2024 15:30 EST Office Visit [facility] Integrative Family Medicine [facility] [address], [place] [address] Osbaldo Dewitt, SG [address] [place] [address] documented as of this encounter Procedures Procedure Name Priority Date/Time Associated Diagnosis Comments SURGICAL PATHOLOGY Routine 09/05/2016 12 :32 EST documented in this encounter Results * SURGICAL PATHOLOGY (09/05/2016 12:32 EST) 09/05/2016 12:3 2 EST 09/05/2016 12:32 EST Narrative [facility] - 09/06/2016 13:05 EST ----- ------- Name: SANDIE DUVALL ? : [birth year] ?Age/Sex: 58/F ?Unit#: [id number] ? Loc: END ? Status: DEP CLI ?? Reg Date: 09/05/16 ? Pt.Phone Number: ? ----- ------- Specimen: [id number] ? STATUS: SOUT ?Spec Date:09/05/16 ? Physician Copies: ?Bird Watkins MD ?? Tissues: A ?? Endoscopy specimen (SPLENIC FLEXURE) ? Osbaldo Dewitt ? CPT: 83809 ?? Units: ??1 ?FINAL DIAGNOSIS ? COLON, [...] Test Performed by [facility], [address] [place] [address] Brokerage Clerk: Ewa Glover MD PHD ----- ------- us Bird Watkins MD PATHOLOGY ORDERABLES Final Re sult [facility] documented in this encounter Visit Diagnoses Not on filedocumented in this encounter Care Teams Kettle Operator Head Relationship Specialty Start Date End Date Unknown, Provider, PCP - General 07/18/14 08/31/19 documented as of this encounter
--- OUTSIDE RECORDS SUMMARY | 2024-10-22 13:19 | XMS_ITS | Encounter Summary ---
Author Organization [place] [address] Care Team Providers Care Remelt Sugar Boiler Name Role Phone Osbaldo Dewitt APRN Primary Care Provider [phone] Encounter Details Date Type Department Care Team (Late st Contact Info) Description 08/08/2023 Orders [place] [address] Christine Colby MD [facility] [place] [address] Chronic pain in right shoulder Social History [...] region documented in this encounter Care Teams Remelt Sugar Boiler Relationship Specialty Start Date End Date Osbaldo Dewitt APRN [address] [place] [address] [phone] PCP - General Family Medicine 12/31/22 documented as of this encounter
--- OUTSIDE RECORDS SUMMARY | 2024-10-22 13:19 | XMS_ITS | Encounter Summary ---
Author Organization [facility] Address [address] [place] [address] Care Team Providers Care Human Resources Consultant Name Role Phone Unknown, Provider Primary Care Provider Osbaldo Moralez NP Primary Care Provider [phone] Encounter Details Date Type Department Care Team (Late st Contact Info) Description 07/07/2014 Historical Results Only [facility] Lab - Main [place] [address] [place], [place] [phone] Lesia Braden APRN [address] [place] [phone] Social History Tobacco Use Types [...] [facility] [address] [place] [address] Osbaldo Dewitt, CONCRETE STONE FINISHER [address] [place], [place] [phone] documented as of this encounter Procedures Procedure Name Priority Date/Time Associated Diagnosis Comments SURGICAL PATHOLOGY Routine 07/07/2014 documented in this encounter Results * SURGICAL PATHOLOGY (07/07/2014) 07/07/2014 07/07/2014 14: 00 EDT Narrative [facility] - 07/08/2014 11:55 EDT PREOP LICHEN SCLEROSIS Procedure: 6-0 LEFT VULVAR PUNCH BX Tissue Removed VULVAR PUNCH BX Clinical Hx: ITCHING BURNING VULVA X 1 YR, DEC MARKINGS ----- ------- Name: SANDIE DUVALL ? : [birth year] ?Age/Sex: 59/F ?Unit#: [id number] ? Loc: MHC ? Status: REG POV ?? Reg Date: 07/07/14 ? Pt.Phone Number: ? ----- ------- Specimen: [id number] ? STATUS: SOUT ?Spec Date:07/07/14 ? Physician Copies: ?Lesia Braden Tissues: A ?? Female Reproductive System (VULVA) ? CPT: 05433 ?? Units: ??1 ?FINAL DIAGNOSIS ? Vulva, [...] the above diagnosis. Test Performed by [facility], [address] [place] [id number] Supervisor Matrix: Ewa Glover MD PHD ----- ------- us Lesia Braden APRN PATHOLOGY ORDERABLES Fin al Result [facility] documented in this encounter Visit Diagnoses Not on filedocumented in this encounter Care Teams Human Resources Consultant Relationship Specialty Start Date End Date Unknown, Provider, PCP - General 07/18/14 08/31/19 Osbaldo Dewitt, SG [address] [place], [place] [phone] PCP - General 09/01/19 documented as of this encounter
--- OUTSIDE RECORDS SUMMARY | 2024-10-22 13:19 | XMS_ITS | Encounter Summary ---
Author Organization [facility] [place] [address] Care Team Providers Care Sandwich Machine Operator Name Role Phone EsdrasOsbaldo weston Yaron PAGE Primary Care Provider [phone] Reason for Visit * Auth/Cert (Routine) Specialty Diagnoses / Procedures Referred By Chance t Referred To Contact Diagnoses shoulder arthritis Procedures PRO ARTHROPLASTY GLENOHUMERAL JOINT TOTAL SHOULDER PRO REPAIR BICEPS LONG TENDON TOTAL SHOULDER ARTHROPLASTY (WRVU 22.13) MODIFIER BEACH CHAIR SCHLEIN TENODESIS,BICEPS TENDON (PROXIMAL) (WRVU 10.17) Airam Colby MD [facility] [place] [address] [facility] Referral ID Status Reason Start Date Expiration Date Visits Re quested Visits Authorized [id number] 1 1 Encounter Details Date Type Department Care Team (Late st Contact Info) Description 12/09/2023 7:30 AM EST - 12/09/2023 10:30 AM EST Surgery [place] [address] Airam Colby MD [facility] [place] [address] TOTAL SHOULDER ARTHROPLASTY (WRVU 22.13) Social History [...] 24 hours, please call the Anesthesiology Department: [phone] Shortness of breath: If you have severe shortness of breath that seems to go on and on, please go to the nearest ER (emergency room). If a nerve block lasts longer than 48 hours, take action. If the nerve block does not wear off within 48 hours, please call the Anesthesiology Department: [phone] Protect the part of your body that [...] the Anesthesiology Department with concerns or questions: [phone] After hours: Call the hospital electrical prospecting operator and ask for the anesthesiologist (titi oliveros) police liaison: [phone] Updated: 08/13/21Scopolamine Patch Discharge Instructions You are [...] Program 8a-5pm Friday-Friday. All other times, call [phone] and ask for the anesthesiologist police liaison. * Patient Instructions* Bird Corona MD - [...] bowel movement. You can also take an rtfy-qsv-tjkqenn medication, Miralax if needed tocombat constipation. 2. [...] air or lightly covered. Call your doctor ([phone]) if you develop: Fever greater than 100.5 [...] 1. You will have follow-up appointments at [facility] as indicated below in Future Appointment and Orders. Future Appointments Date Time Provider Department Center 12/26/2023 2:30 PM Joan Sow PA [facility] ORTH 3A [facility] If you have questions or concerns: Friday [...] 1,000 mg by mouth 2 times daily. epxslxg-incg-dtyfu-oreg-c vernell 100 mg-150 mg- 50 mg-150 mg Capsule Take by mouth. Just tumeric venlafaxine XR (Effexor-XR) 37.5 mg ER 24 hr capsule Take 37.5 mg by mouth daily. 02/03/2023 omeprazole (PriLOSEC) [address] capsule Take 20 mg by mouth nightly. 01/31/2023 hydroCHLOROthiazide (Hydrodiuril) 25 mg tablet Take 25 mg by mouth daily. 02/03/2023 fluticasone propionate (Flonase) 50 mcg/actuation [place], Suspension 2 sprays by Nasal route Once [...] 22.13) performed by Airam Colby MD at [facility] MAIN OR PRO REPAIR BICEPS LONG TENDON Left 03/11/2023 TENODESIS,BICEPS TENDON (PROXIMAL) (WRVU 10.17) performed by Airam Colby MD at [facility] MAIN OR Home Medications: Medications Prior [...] 5 mg by mouth Twice daily. 12/05/2023 ttfybna-rgwd-zsskf-oreg-capryl 100 mg-150 mg- 50 mg-150 mg Capsule Take by mouth. Just tumeric 12/06/2023 fluticasone propionate (Flonase) 50 mcg/actuation [place], Suspension 2 sprays by Nasal route Once [...] Colby M.D., M.S. Professor of Orthopaedic Surgery [facility] at [facility] Department [place] [address] documented in this encounter Miscellaneous Notes * Op Note - Airam Colby MD - 12/09/2023 7:55 AM EST [facility] Operative Note Patient Name: Sandie Manriquez : [id number] MR#: [id number] Case Date: 12/09/2023 Surgeon: Surgeon(s) and Role: * Airam Colby MD - Primary * Bird Corona MD - Resident - Assisting * Joan Sow PA - Physician Insurance Sales Manager Preoperative diagnosis: shoulder pain Postoperative diagnosis: shoulder [...] Used: Chandler Sidus TSA System with Chandler [place] Glenoid [place]: medium Head: 44x16 Glenoid: Size 4 with 4 peg configuration and center TM post Pre-operative Evaluation: The patient was identified in the preoperative holding area. After confirming that the right shoulder was the correct site of surgery with both the patient and the informed consent, a green chemehuevi was placed on the operative shoulder. The [...] 8:32 AM EST Repair Biceps Long Tendon ([id number]) 12/09/2023 7:24 AM EST shoulder pain MODIFIER SIDUS SHOULDER CHANDLER BIOMET 12/09/2023 7:24 AM EST shoulder pain Arthroplasty, Glenohumeral Joint Total Shoulder ([id number]) 12/09/2023 7:24 AM EST shoulder pain TOTAL [...] who have questions please contact the health physician primary care sports medicine that requested your imaging first. ? Narrative [...] patients who have questions please contactthe health physician primary care sports medicine that requested your imaging first. Airam Colby MD IMG DX ORDERABLES * Surgical Pathology Report (12/09/2023 8:32 AM EST) Final Diagnosis [id number] ? Location: [facility]; The signing pathologist has (i) examined [...] MD, Simi Verified: ??12/12/2023 9:48 Performed at: ??-[facility] Dept. of Pathology, [place] [address] Template Checker: Darion Andrew MD, FCAP, ??CLIA Certificate: [id number] SPECIMEN(S) SUBMITTED A - Right shoulder synovium, rule out ?? inflammatory ??stenosis, excision (1) CLINICAL INFORMATION s/p TSA Right shoulder synovium, rule out inflammatory stenosis SPECIMEN PROCESSING A - Labeled/Fixative : Right shoulder synovium, rule out inflammatory stenosis, fresh. Quantity/Size: Single, 3.2 x 2.1 x 1.0 cm. Tissue Description: Irregular fragment of pink-red fibrous tissue. Sections/Process ing: Sealer Dry Cell sections in 2 cassettes labeled A1-A2. ??pps 12/12/2023 9:48 AM EST [facility] SYNOVIUM BIOPSY SPECIMEN / Unknown 12/09/2023 8:32 AM EST 12/09/2023 8:32 AM EST Airam Colby MD PATHOLOGY/CYTOLOGY O NATHANIEL Performing Organization Address City/[facility]/ZIP Co de Phone Number [facility] [address] [place] [address] * Specimen to Pathology (12/09/2023 8:32 AM EST) AP Specimen 12/09/2023 8:32 AM EST 12/09/2023 8:32 AM EST Narrative [facility] - 12/09/2023 8:32 AM EST Specimen requisition ordered. ??Separate Pathology report to follow Airam Colby MD PATHOLOGY/CYTOLOGY O NATHANIEL Performing Organization Address City/[facility]/ZIP Co de Phone Number [facility] [place] [address] * SCAN DOC: IMPLANTABLE DEVICES (12/09/2023 12:00 [...] Procedure), Routine 0632 (Given - Provid er: Kraolina Abdul RN) scopolamine (Transderm-Scop) 1 mg over [...] Intra-Operative (Intra-Procedure) 0803 (Given - Provid er: Aiarm Colby MD) midazolam (pf) (Versed) (1 mg/mL) [...] MD) documented in this encounter Care Teams Sandwich Machine Operator Relationship Specialty Start Date End Date Osbaldo Dewitt APRN [address] [place] [phone] PCP - General Family Medicine 12/31/22 documented as of this encounter
--- OUTSIDE RECORDS SUMMARY | 2024-10-22 13:19 | XMS_ITS | Encounter Summary ---
Author Organization [facility] Address [facility] [place] [address] Care Team Providers Care Detailer Furniture Name Role Phone Osbaldo Dewitt APRN Primary Care Provider [phone] Encounter Details Date Type Department Care Team [...] on filedocumented in this encounter Care Teams Detailer Furniture Relationship Specialty Start Date End Date Osbaldo Dewitt APRN [address] [place] [address] [phone] PCP - General Family Medicine 12/31/22 documented as of this encounter
--- OUTSIDE RECORDS SUMMARY | 2024-10-22 13:19 | XMS_ITS | Encounter Summary ---
Author Organization [facility] Address [facility] [place] [address] Care Team Providers Care Door Closer Name Role Phone Osbaldo Dewitt APRN Primary Care Provider [phone] Encounter Details Date Type Department Care Team [...] on filedocumented in this encounter Care Teams Door Closer Relationship Specialty Start Date End Date Osbaldo Dewitt APRN [address] [place] [phone] PCP - General Family Medicine 12/31/22 documented as of this encounter
--- OUTSIDE RECORDS SUMMARY | 2024-10-22 13:19 | XMS_ITS | Encounter Summary ---
Author Organization [facility] Address [facility] [place] [address] Care Team Providers Care Automotive Internet Sales Manager Name Role Phone EsdrasOsbaldo weston Yaron PAGE Primary Care Provider [phone] Reason for Visit * Reason Comments Follow Up Surgery 6-6-23 L TSA WOUN D CHECK Follow-up NXR 6-6-23 L TSA WOUND CHECK Encounter Details Date Type Department Care Team (Latest Contact Info) Description 05/21/2023 8:20 AM EDT Office [place] [address] Rosalee Powers PA [facility] [address] [place] [address] Postoperative abscess involving suture Social History Tobacco [...] NAME: Sandie Manriquez AGE: 63 y.o. MR#: [id number] DATE OF VISIT: 05/21/2023 DATE OF SURGERY: [...] None obtained SURVEY RESPONSES: 04/25/2023 8:46 AM [facility] Non-surgical Followup Visit PROMIS-10 General Health Good [...] concerns. The above documentation was completed using [employer] voice recognition software. documented in this encounter Plan of Treatment Not on file documented as of this encounter Visit Diagnoses Diagnosis Postoperative abscess involving suture documented in this encounter Care Teams Automotive Internet Sales Manager Relationship Specialty Start Date End Date Osbaldo Dewitt APRN [address] [place] [phone] PCP - General Family Medicine 12/31/22 documented as of this encounter
--- OUTSIDE RECORDS SUMMARY | 2024-10-22 13:19 | XMS_ITS | Encounter Summary ---
Author Organization [facility] Address [facility] [place] [address] Care Team Providers Care Mainframe Programmer Name Role Phone Osbaldo Dewitt CAMILO Primary Care Provider [phone] Reason for Visit * Reason Comments Follow-up XR RIGHT TSA D OS:12-09-23 Encounter Details Date Type Department Care Team (Late st Contact Info) Description 01/27/2024 8:30 AM EDT Office [place] [address] Joan Sow PA [facility] [place] [address] s/p right anatomic stemless TSA, 12/09/23 (Dr [...] Name: Sandie Manriquez AGE: 63 y.o. MR#: [id number] Date of Visit: 01/27/2024 Procedure: right anatomic [...] without acute postoperative complications. Survey Responses: 01/26/2024 [facility] Surgical Followup Visit PROMIS-10 General Health [...] since surgery Yes Where was ER located? [place], [place] Date of ER visit 12/13/2023 Reason for ER visit A-fib Admitted to hospital since recent ortho surgery No Additional surgery on same body part No Satisfaction with Treatment Satisfied Choose Same Treatment Again Definitely yes 01/26/2024 Orthopeadics [facility] Response ASES VAS-RIGHT 1 ASES ADL-RIGHT [...] AM The above documentation was completed using F[employer] voice recognition software. documented in this encounter Plan of Treatment Not on file documented as of this encounter Visit Diagnoses Diagnosis s/p right anatomic stemless TSA, 12/09/23 (Dr Colby)- Primary s/p left anatomic stemless TSA, 03/11/23 (Dr Colby) documented in this encounter Care Teams Mainframe Programmer Relationship Specialty Start Date End Date Osbaldo Dewitt APRN [address] [place] [phone] PCP - General Family Medicine 12/31/22 documented as of this encounter
--- OUTSIDE RECORDS SUMMARY | 2024-10-22 13:19 | XMS_ITS | Encounter Summary ---
Author Organization [facility] [place] [address] Care Team Providers Care Tool Procurement Coordinator Name Role Phone Osbaldo Dewitt APRN Primary Care Provider [phone] Encounter Details Date Type Department Care Team (Late st Contact Info) Description 09/03/2023 5:10 PM EST Ancillary Procedure Radiology Library at [facility] [place] [address] Osbaldo Dewitt APRN [address] [place] [phone] Social History Tobacco Use Types Packs/Day [...] Upper Extremity (09/03/2023 5:06 PM EST) Narrative [facility] - 09/03/2023 5:06 PM EST This exam is auto-finalizing. It's purpose is for storage only. Osbaldo Dewitt APRN [facility] FILM LIBRARY ORD ERABLES ERIC [place], [place] documented in this encounter Visit Diagnoses Not on filedocumented in this encounter Care Teams Tool Procurement Coordinator Relationship Specialty Start Date End Date Osbaldo Dewitt APRN [address] [place] [phone] PCP - General Family Medicine 12/31/22 documented as of this encounter
--- OUTSIDE RECORDS SUMMARY | 2024-10-22 13:19 | XMS_ITS | Encounter Summary ---
Author Organization [facility] Address [facility] [place] [place] [address] Care Team Providers Care Smoke And Flame Specialist Name Role Phone Osbaldo Dewitt CAMILO Primary Care Provider [phone] Reason for Visit * Reason Onset Date Comments Questions 10/30/2023 Encounter Details Date Type Department Care Team (Late st Contact Info) Description 10/30/2023 Telephone [place] [phone] Christine Colby MD [facility] [place] [address] Questions Social History Tobacco Use Types Packs/Day Years Used Date Smoking Tobacco: Former Cigarettes Smokeless Tobacco: Never Alcohol Use Standard Drinks/Week Comments Yes 14 (1 standard drink = 0.6 oz pu re alcohol) [facility] Inpatient Questions Answer Date Recorded [...] ESTSummary: Questions Name of person calling : [facility] Facility person calling from: N/A Who is the provider: Earnestine Have you had surgery: Yes If yes : DOS:03/11/2023 Surgeon: Earnestine Is there a new injury: No If yes, how did the new injury occur?: Best contact number: [phone] What is the question: Patient is calling [...] on filedocumented in this encounter Care Teams Smoke And Flame Specialist Relationship Specialty Start Date End Date Osbaldo Dewitt APRN [address] [place] [phone] PCP - General Family Medicine 12/31/22 documented as of this encounter
--- OUTSIDE RECORDS SUMMARY | 2024-10-22 13:19 | XMS_ITS | Encounter Summary ---
Author Organization [facility] Address [facility] [place] [address] Care Team Providers Care Homoeopath Name Role Phone Osbaldo Dewitt APRN Primary Care Provider [phone] Encounter Details Date Type Department Care Team [...] on filedocumented in this encounter Care Teams Homoeopath Relationship Specialty Start Date End Date Osbaldo Dewitt APRN [address] [place] [phone] PCP - General Family Medicine 12/31/22 documented as of this encounter
--- OUTSIDE RECORDS SUMMARY | 2024-10-22 13:19 | XMS_ITS | Encounter Summary ---
Author Organization [facility] Address [address] [place] [address] Care Team Providers Care Surface Supervisor Name Role Phone Unknown, Provider Primary Care Provider Osbaldo Moralez NP Primary Care Provider [phone] Encounter Details Date Type Department Care Team (Late st Contact Info) Description 05/05/2014 Historical Results Only [facility] - Main [place] [address] [place], [place] [id number] Lesia Braden APRN [address] [place] [address] Social History Tobacco Use Types [...] Visit [facility] Integrative Family Medicine [facility] [address] [place] [address] Osbaldo Dewitt, FLAT BED KNITTER [address] [place] [phone] documented as of this encounter Procedures Procedure Name Priority Date/Time Associated Diagnosis Comments PAP TEST Routine 05/05/2014 9:57 EDT documented in this encounter Results * PAP TEST (05/05/2014 9:57 EDT) 05/05/2014 9:57 EDT 05/06/2014 9:57 EDT Narrative [facility] - 05/10/2014 8:58 EDT ----- ------- Name: SANDIE DUVALL ? : [birth year] ?Age/Sex: 59/F ?Unit#: [id number] ? Loc: [facility] ? Status: REG POV ?? Reg Date: 05/05/14 ? Pt.Phone Number: ? ----- ------- Specimen: [id number] ?STATUS: SOUT ?Spec Date:05/05/14 ? Physician Copies: ?Lesia Braden Tissues: ? Cervical/Endo Pap ?Sharif Frances CPT: 19936 ?? Units: ??1 ----- ------- ? CYTOLOGY [...] confirmed the above diagnosis. Test Performed by [facility], [address] [place] [address] Sales Representative Cash Registers: Ewa Glover MD PHD ----- ------- us Lesia A Asiya CLERK ENTRY LEVEL PATHOLOGY ORDERABLES Fin al Result [facility] documented in this encounter Visit Diagnoses Not on filedocumented in this encounter Care Teams Surface Supervisor Relationship Specialty Start Date End Date Unknown, Provider, PCP - General 07/18/14 08/31/19 Osbaldo Dewitt, FLAT BED KNITTER [address] [place] [phone] PCP - General 09/01/19 documented as of this encounter
--- OUTSIDE RECORDS SUMMARY | 2024-10-22 13:19 | XMS_ITS | Encounter Summary ---
Author Organization [facility] [place] [address] Care Team Providers Care Orange Picker Name Role Phone Osbaldo Dewitt APRN Primary Care Provider Encounter Details Date Type Department Care Team (Late st Contact Info) Description 07/22/2023 Orders Only [place] [address] Christine Colby MD [facility] [place] [address] Social History Tobacco Use Types Packs/Day Years [...] on filedocumented in this encounter Care Teams Orange Picker Relationship Specialty Start Date End Date Osbaldo Dewitt APRN [address] [place] [phone] PCP - General Family Medicine 12/31/22 documented as of this encounter
--- OUTSIDE RECORDS SUMMARY | 2024-10-22 13:19 | XMS_ITS | Encounter Summary ---
Author Organization [facility] [place] [address] Care Team Providers Care Guest Services Officer Name Role Phone Osbaldo Dewitt APRN Primary Care Provider [phone] Reason for Visit * Diagnostic Test (Routine) - Closed Specialty Diagnoses / Procedures Referred By Chance le Referred To Contact Neurology Diagnoses Neuralgia and neuritis Chante Salas APRN [facility] [place] [address] [facility] Neurology [address] [place] [address] Referral ID Status Reason Start Date Expiration Date V isits Requested Visits Authorized [id number] Closed Test Only 06/10/2023 06/09/2024 1 1 Encounter Details Date Type Department Care Team (Latest Contact Info) Description 07/14/2023 11:00 AM EDT [place] [phone] Aditya Boss MD [facility] [place] [address] Carpal tunnel syndrome on left [...] studies by Chante Salas APRN [facility] [place] [address] to look for evidence of cervical radiculopathy [...] syndrome documented in this encounter Care Teams Guest Services Officer Relationship Specialty Start Date End Date Osbaldo Dewitt APRN [address] [place] [phone] PCP - General Family Medicine 12/31/22 documented as of this encounter
--- OUTSIDE RECORDS SUMMARY | 2024-10-22 13:20 | XMS_ITS | Encounter Summary ---
Author Organization [facility] [place] [address] Care Team Providers Care Electric Switch Tester Name Role Phone Osbaldo Dewitt APRN Primary Care Provider Encounter Details Date Type Department Care Team (Late st Contact Info) Description 02/11/2023 Orders [place] [address] Christine Colby MD [facility] [place] [address] Chronic pain in left shoulder Social History [...] region documented in this encounter Care Teams Electric Switch Tester Relationship Specialty Start Date End Date Osbaldo Dewitt APRN [address] [place] [phone] PCP - General Family Medicine 12/31/22 documented as of this encounter
--- OUTSIDE RECORDS SUMMARY | 2024-10-22 13:20 | XMS_ITS | Encounter Summary ---
Author Organization [facility] [place] [address] Care Team Providers Care Branch Assistant Name Role Phone Osbaldo Dewitt APRN Primary Care Provider [phone] Reason for Referral * Physical Therapy (Routine) - Closed Specialty Diagnoses / Procedures Referred By Chance le Referred To Contact Diagnoses Primary osteoarthritis of both shoulders Christine Colby MD [facility] [place] [address] Referral ID Status Reason Start Date Expiration Date V isits Requested Visits Authorized [id number] Closed Evaluate and Treat 03/06/2023 09/02/2023 12 12 Reason for Visit * Reason Comments Pre-op Exam 03-11-23 Left TSA Encounter Details Date Type Department Care Team (Latest Contact Info) Description 03/06/2023 10:40 AM EDT Office [place] [address] Christine Colby MD [facility] [place] [address] Primary osteoarthritis of both shoulders; Primary osteoarthritis [...] - 03/06/2023 10:40 AM EDT Shoulder Service [place], [place] Date of Evaluation: 03/06/2023 Subjective: Sandie [...] Colby M.D., M.S. Professor of Orthopaedic Surgery [facility] [employer] [facility] Department [place] [address] This note was created with [employer] voice recognition software. Please excuse any typos. [...] Discussed making sure they take care of residential child care counselor, sleeping situations, and having help with ADL'sbefore [...] services post-op: No BRITNI Knight, VTLAT, ATC Counter Maker, Orthopedics and Sports Medicine Tel Fax [facility] documented in this encounter Plan of Treatment Scheduled Referrals Name Type Priority Associated Diagnoses Orde r Schedule Referral to Physical Therapy Outpatient Referral Routine Primary osteoarthritis of both shoulders Ordered: 03/06/2023 documented as of this encounter Visit Diagnoses Diagnosis Primary osteoarthritis of both shoulders Primary osteoarthritis of left shoulder Primary localized osteoarthrosis, shoulder region documented in this encounter Care Teams Branch Assistant Relationship Specialty Start Date End Date Osbaldo Dewitt APRN [address] [place] [phone] PCP - General Family Medicine 12/31/22 documented as of this encounter
--- OUTSIDE RECORDS SUMMARY | 2024-10-22 13:20 | XMS_ITS | Encounter Summary ---
Author Organization [facility] [place] [address] Care Team Providers Care Certified Hand Therapist Name Role Phone Osbaldo Dewitt APRN Primary Care Provider [phone] Encounter Details Date Type Department Care Team (Late st Contact Info) Description 02/27/2023 Telephone [place] [address] Christine Colby MD [facility] [place] [address] Social History Tobacco Use Types Packs/Day Years [...] on filedocumented in this encounter Care Teams Certified Hand Therapist Relationship Specialty Start Date End Date Osbaldo Dewitt APRN [address] [place] [phone] PCP - General Family Medicine 12/31/22 documented as of this encounter
--- OUTSIDE RECORDS SUMMARY | 2024-10-22 13:20 | XMS_ITS | Encounter Summary ---
Author Organization [facility] [place] [address] Care Team Providers Care Brick Chimney Supervisor Name Role Phone EsdrasOsbaldo weston Yaron PAGE Primary Care Provider [phone] Reason for Visit * Auth/Cert (Routine) Specialty Diagnoses / Procedures Referred By Chance t Referred To Contact Diagnoses shoulder arthritis Procedures PRO ARTHROPLASTY GLENOHUMERAL JOINT TOTAL SHOULDER PRO REPAIR BICEPS LONG TENDON TOTAL SHOULDER ARTHROPLASTY (WRVU 22.13) MODIFIER BEACH CHAIR SCHLEIN TENODESIS,BICEPS TENDON (PROXIMAL) (WRVU 10.17) Airam Colby MD [facility] [place] [address] [facility] [[email or web address]] Referral ID Status Reason Start Date Expiration Date Visits Re quested Visits Authorized [id number] 1 1 Encounter Details Date Type Department Care Team (Latest Contact Info) Description 03/11/2023 6:17 AM EDT - 03/11/2023 11:58 AM EDT Hospital Encounter [place] [address] Airam Colby MD [facility] [place] [address] Discharge Disposition: Home Social History Tobacco Use [...] bowel movement. You can also take an pwpm-dmz-nlzcvrm medication, Miralax if needed tocombat constipation. 2. [...] air or lightly covered. Call your doctor ([phone]) if you develop: Fever greater than 100.5 Severe nausea or vomiting Increasing pain that is not controlled by pain medications Increasing redness, swelling, or drainage from incisions Change in sensation Misc: Remember that ICE and elevation are very important to decrease swelling and control pain. Youshould use the ICE for 20-30 minutes at a time. FOLLOW-UP APPOINTMENTS: You will have follow-up appointments at [facility] as indicated below in Future Appointment and Orders. Future Appointments Date Time Provider Department Center 03/25/2023 10:00 AM Rosalee Powers PA [facility] ORTH 3A [facility] If you have questions or concerns: Friday through Friday, 8 AM - 5 PM, please call Dr. Airam Colby MD's office at . If it is after 5 PM or on the weekend, please call and ask to speak with the Orthopedic resident on-call. documented in this encounter Medications at Time of Discharge Medication Sig Dispensed Refills Start Date End Date flzktiz-axfn-dbqya-oreg -capryl 100 mg-150 mg- 50 mg-150 mg Capsule Take by mouth. Just tumeric venlafaxine XR (Effexor-XR) 37.5 mg ER 24 hr capsule Take 37.5 mg by mouth daily. 02/03/2023 omeprazole (PriLOSEC) [address] capsule Take 20 mg by mouth nightly. 01/31/2023 hydroCHLOROthiazide (Hydrodiuril) 25 mg tablet Take 25 mg by mouth daily. 02/03/2023 fluticasone propionate (Flonase) 50 mcg/actuation [place], Suspension 2 sprays by Nasal route Once [...] Admission Medication Sig Dispense Refill Last Dose ysznpsr-mupx-kdgjj-oreg-capryl 100 mg-150 mg- 50 mg-150 mg Capsule Take by mouth. 03/09/2023 venlafaxine XR (Effexor-XR) 37.5 mg ER 24 hr capsule 03/11/2023 at 0430 omeprazole (PriLOSEC) [address] capsule Take 20 mg by mouth nightly. 03/09/2023 losartan (Cozaar) 100 mg tablet Take 100 mg by mouth daily. 03/10/2023 hydroCHLOROthiazide (Hydrodiuril) 25 mg tablet 03/10/2023 at 0430 fluticasone propionate (Flonase) 50 mcg/actuation [place], Suspension 2 sprays by Nasal route Once [...] arthroplasty. Elijah Lugo MD Orthopaedic Surgery Pager: [phone] Attending addendum: The preceeding portion of this note was written by Dr. Lugo. I personally saw and evaluated the patient at the bedside and I agree with the assessment and plan documented above. Airam Colby M.D., M.S. Professor of Orthopaedic Surgery [employer] at [facility] Department [place] [address] documented in this encounter Miscellaneous Notes * Op Note - Airam Colby MD - 03/11/2023 7:54 AM EDT [facility] Operative Note Patient Name: Sandie Manriquez : [id number] MR#: [id number] Case Date: 03/11/2023 Surgeon: Surgeon(s) and Role: * Airam Colby MD - Primary * Elijah Lugo MD - Resident - Assisting * Joan Sow PA - Physician Visual Merchandise Manager Preoperative diagnosis: shoulder arthritis Postoperative diagnosis: shoulder [...] Used: Chandler Sidus TSA System with Chandler [place] Glenoid [place]: medium Head: 42x15 Glenoid: Size 4 with 4 peg configuration and center TM post Pre-operative Evaluation: The patient was identified in the preoperative holding area. After confirming that the left shoulder was the correct site of surgery with both the patient and the informed consent, a green [place] wasplaced on the operative shoulder. The plan [...] EDT shoulder arthritis Repair Biceps Long Tendon (98653) Yes 03/11/2023 7:22 AM EDT shoulder arthritis MODIFIER BEACH CHAIR SCHLEIN Yes 03/11/2023 7:22 AM EDT shoulder arthritis Arthroplasty, Glenohumeral Joint Total Shoulder ([id number]) Yes 03/11/2023 7:22 AM EDT shoulder arthritis [...] questions please contact the health health care social worker that requested your imaging first. ? Electronically signed by: Betty Abrams MD, [facility] ([phone]), at 03/11/2023 2:30 PM Narrative 03/11/2023 2:30 [...] have questions please contactthe health health care social worker that requested your imaging first. Electronically signed by: Betty Abrams MD, [facility]([phone]), at 03/11/2023 2:30 PM Airam Colby MD IMG DX ORDERABLES * Surgical Pathology Report (03/11/2023 8:24 AM EDT) Final Diagnosis [id number] ? Location: [facility]; [facility]; A The signing pathologist has (i) examined the relevant preparation(s) for the specimen(s) and (ii) rendered or confirmed the diagnosis(es). . 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 of Pathology, [place] [address] Rn Renal: Darion Andrew MD, FCAP, ??CLIA Certificate: [id number] DISCUSSION While non-specific, the presence of patchy lymphoplasmacytic inflammation could raise diagnostic consideration of rheumatoid arthritis, in the appropriate clinical context. Correlation with clinical and serologic studies is suggested. SPECIMEN(S) SUBMITTED A - synovium, excision (1) CLINICAL INFORMATION Shoulder arthritis SPECIMEN PROCESSING A - Labeled/Fixative: Synovium, fresh. Quantity/Size: Single, 3.0 x 2.1 x 0.6 cm. Tissue Description: Soft red papillary tissue. Sections/Processing: Screw Supervisor sections in 1 cassette labeled A1. ??aaw 03/13/2023 10:20 AM EDT [facility] SYNOVIUM BIOPSY SPECIMEN / Unknown 03/11/2023 8:24 AM EDT 03/11/2023 8:24 AM EDT Airam Colby MD PATHOLOGY/CYTOLOGY O NATHANIEL Performing Organization Address [facility] Co de Phone Number [facility] [address] [place] [address] * Specimen to Pathology (03/11/2023 8:24 AM EDT) AP Specimen 03/11/2023 8:24 AM EDT 03/11/2023 8:24 AM EDT Narrative [facility] - 03/11/2023 8:24 AM EDT Specimen requisition ordered. ??Separate Pathology report to follow Airam Colby MD PATHOLOGY/CYTOLOGY O NATHANIEL Performing Organization Address [facility]/ZIP Co de Phone Number [facility] [place] [address] * SCAN DOC: IMPLANTABLE DEVICES (03/11/2023 12:00 [...] patch. documented in this encounter Care Teams Brick Chimney Supervisor Relationship Specialty Start Date End Date Osbaldo Dewitt APRN [address] [place] [phone] PCP - General Family Medicine 12/31/22 documented as of this encounter
--- OUTSIDE RECORDS SUMMARY | 2024-10-22 13:20 | XMS_ITS | Encounter Summary ---
Author Organization [facility] [place] [address] Care Team Providers Care Preschool Head Teacher Name Role Phone Osbaldo Dewtit Yaron PAGE Primary Care Provider [phone] Reason for Visit * Auth/Cert (Routine) Specialty Diagnoses / Procedures Referred By Chance t Referred To Contact Diagnoses shoulder arthritis Procedures PRO ARTHROPLASTY GLENOHUMERAL JOINT TOTAL SHOULDER PRO REPAIR BICEPS LONG TENDON TOTAL SHOULDER ARTHROPLASTY (WRVU 22.13) MODIFIER BEACH CHAIR SCHLEIN TENODESIS,BICEPS TENDON (PROXIMAL) (WRVU 10.17) Airam Colby MD [facility] [place] [address] [facility] Referral ID Status Reason Start Date Expiration Date Visits Re quested Visits Authorized [id number] 1 1 Encounter Details Date Type Department Care Team (Late st Contact Info) Description 03/11/2023 7:30 AM EDT - 03/11/2023 10:40 AM EDT Surgery [place] [phone] Airam Colby MD [facility] [place] [address] TOTAL SHOULDER ARTHROPLASTY (WRVU 22.13) Social History [...] bowel movement. You can also take an ypex-ana-yqeuedv medication, Miralax if needed tocombat constipation. 2. [...] air or lightly covered. Call your doctor ([phone]) if you develop: Fever greater than 100.5 Severe nausea or vomiting Increasing pain that is not controlled by pain medications Increasing redness, swelling, or drainage from incisions Change in sensation Misc: Remember that ICE and elevation are very important to decrease swelling and control pain. Youshould use the ICE for 20-30 minutes at a time. FOLLOW-UP APPOINTMENTS: You will have follow-up appointments at [facility] as indicated below in Future Appointment and Orders. Future Appointments Date Time Provider Department Center 03/25/2023 10:00 AM Rosalee Powers PA [facility] ORTH 3A [facility] If you have questions [...] Sig Dispensed Refills Start Date End Date pnrsoum-dwpy-dbjfr-oreg -capryl 100 mg-150 mg- 50 mg-150 mg Capsule Take by mouth. Just tumeric venlafaxine XR (Effexor-XR) 37.5 mg ER 24 hr capsule Take 37.5 mg by mouth daily. 02/03/2023 omeprazole (PriLOSEC) [address] capsule Take 20 mg by mouth nightly. 01/31/2023 hydroCHLOROthiazide (Hydrodiuril) 25 mg tablet Take 25 mg by mouth daily. 02/03/2023 fluticasone propionate (Flonase) 50 mcg/actuation [place], Suspension 2 sprays by Nasal route Once [...] Admission Medication Sig Dispense Refill Last Dose ltlnvqd-awhw-firnk-oreg-capryl 100 mg-150 mg- 50 mg-150 mg Capsule Take by mouth. 03/09/2023 venlafaxine XR (Effexor-XR) 37.5 mg ER 24 hr capsule 03/11/2023 at 0430 omeprazole (PriLOSEC) [address] capsule Take 20 mg by mouth nightly. 03/09/2023 losartan (Cozaar) 100 mg tablet Take 100 mg by mouth daily. 03/10/2023 hydroCHLOROthiazide (Hydrodiuril) 25 mg tablet 03/10/2023 at 0430 fluticasone propionate (Flonase) 50 mcg/actuation [place], Suspension 2 sprays by Nasal route Once [...] arthroplasty. Elijah Lugo MD Orthopaedic Surgery Pager: [phone] Attending addendum: The preceeding portion of this note was written by Dr. Lugo. I personally saw and evaluated the patient at the bedside and I agree with the assessment and plan documented above. Airam Colby M.D., M.S. Professor of Orthopaedic Surgery [employer] at [facility] Department [place] [address] documented in this encounter Miscellaneous Notes * Op Note - Airam Colby MD - 03/11/2023 7:54 AM EDT [facility] Operative Note Patient Name: Sandie Manriquez : [id number] MR#: [id number] Case Date: 03/11/2023 Surgeon: Surgeon(s) and Role: * Airam Colby MD - Primary * Elijah Lugo MD - Resident - Assisting * Joan Sow PA - Physician Weed Thinner Preoperative diagnosis: shoulder arthritis Postoperative diagnosis: shoulder [...] Used: Chandler Sidus TSA System with Chandler [place] Glenoid [place]: medium Head: 42x15 Glenoid: Size 4 with 4 peg configuration and center TM post Pre-operative Evaluation: The patient was identified in the preoperative holding area. After confirming that the left shoulder was the correct site of surgery with both the patient and the informed consent, a [place] wasplaced on the operative shoulder. The plan [...] EDT shoulder arthritis Repair Biceps Long Tendon ([id number]) Yes 03/11/2023 7:22 AM EDT shoulder arthritis MODIFIER BEACH CHAIR SCHLEIN Yes 03/11/2023 7:22 AM EDT shoulder arthritis Arthroplasty, Glenohumeral Joint Total Shoulder ([id number]) Yes 03/11/2023 7:22 AM EDT shoulder arthritis [...] have questions please contact the health medicare sales executive that requested your imaging first. ? Electronically signed by: Betty Abrams MD, [facility] ([phone]), at 03/11/2023 2:30 PM Narrative 03/11/2023 2:30 [...] who have questions please contactthe health medicare sales executive that requested your imaging first. Electronically signed by: Betty Abrams MD, [facility]([phone]), at 03/11/2023 2:30 PM Airam Colby MD IMG DX ORDERABLES * Surgical Pathology Report (03/11/2023 8:24 AM EDT) Final Diagnosis [id number] ? Location: [facility]; [facility]; A The signing pathologist has (i) examined the relevant preparation(s) for the specimen(s) and (ii) rendered or confirmed the diagnosis(es). . ?Surgical Pathology DIAGNOSIS A - Soft tissue, synovium, excision: - Synovial hyperplasia with patchy lymphoplasmacytic inflammation (see discussion) Electronically signed by: ?Leia OSORIO, PhD, Nelson Hillman Verified: ??03/13/2023 10:20 ??Dermatopathologist , Bone & Soft Tissue Pathologist Performed at: ??-[facility] Dept. of Pathology, [place] [address] Green Plumber: Darion Andrew MD, FCAP, ??CLIA Certificate: [id number] DISCUSSION While non-specific, the presence of patchy lymphoplasmacytic inflammation could raise diagnostic consideration of rheumatoid arthritis, in the appropriate clinical context. Correlation with clinical and serologic studies is suggested. SPECIMEN(S) SUBMITTED A - synovium, excision (1) CLINICAL INFORMATION Shoulder arthritis SPECIMEN PROCESSING A - Labeled/Fixative: Synovium, fresh. Quantity/Size: Single, 3.0 x 2.1 x 0.6 cm. Tissue Description: Soft red papillary tissue. Sections/Processing: Doll Maker sections in 1 cassette labeled A1. ??aaw 03/13/2023 10:[address] [facility] SYNOVIUM BIOPSY SPECIMEN / Unknown 03/11/2023 8:24 AM EDT 03/11/2023 8:24 AM EDT Airam Colby MD PATHOLOGY/CYTOLOGY O NATHANIEL Performing Organization Address [facility]/ZIP Co de Phone Number [facility] [address] [place] [address] * Specimen to Pathology (03/11/2023 8:24 AM EDT) AP Specimen 03/11/2023 8:24 AM EDT 03/11/2023 8:24 AM EDT Narrative [facility] - 03/11/2023 8:24 AM EDT Specimen requisition ordered. ??Separate Pathology report to follow Airam Colby MD PATHOLOGY/CYTOLOGY O NATHANIEL Performing Organization Address [facility]/State/ZIP Co de Phone Number [facility] [place] [address] * SCAN DOC: IMPLANTABLE DEVICES (03/11/2023 12:00 [...] patch. documented in this encounter Care Teams Preschool Head Teacher Relationship Specialty Start Date End Date Osbaldo Dewitt APRN [address] [place] [phone] PCP - General Family Medicine 12/31/22 documented as of this encounter
--- OUTSIDE RECORDS SUMMARY | 2024-10-22 13:20 | XMS_ITS | Encounter Summary ---
Author Organization [facility] [place] [address] Care Team Providers Care Morning News Anchor Name Role Phone Osbaldo Dewitt APRN Primary Care Provider [phone] Encounter Details Date Type Department Care Team [...] on filedocumented in this encounter Care Teams Morning News Anchor Relationship Specialty Start Date End Date Osbaldo Dewitt APRN [address] [place] [phone] PCP - General Family Medicine 12/31/22 documented as of this encounter
--- OUTSIDE RECORDS SUMMARY | 2024-10-22 13:20 | XMS_ITS | Encounter Summary ---
[place] [address] Care Team Providers Care Computer Repair Technician Name Role Phone EsdrasOsbaldo weston Ayana PAGE Primary Care Provider [phone] Encounter Details Date Type Department Care Team (Late st Contact Info) Description 03/14/2023 Telephone [place] [phone] Selene Lindsey MD [facility] [place] [address] Social History Tobacco Use Types Packs/Day Years [...] Selene Lindsey MD 03/14/2023 Regional Anesthesia Pager [phone] documented in this encounter Plan of Treatment Not on file documented as of this encounter Visit Diagnoses Not on filedocumented in this encounter Care Teams Computer Repair Technician Relationship Specialty Start Date End Date Osbaldo Dewitt APRN [address] [place] [phone] PCP - General Family Medicine 12/31/22 documented as of this encounter
--- OUTSIDE RECORDS SUMMARY | 2024-10-22 13:20 | XMS_ITS | Encounter Summary ---
Author Organization [facility] Address [facility] [place] [address] Care Team Providers Care Dowel Machine Operator Name Role Phone Osbaldo Dewitt CAMILO Primary Care Provider [phone] Encounter Details Date Type Department Care Team (Latest Contact Info) Description 04/25/2023 1:46 PM EDT - 04/25/2023 11:59 PM EDT Hospital Encounter XRay at [address] [place] [address] Christine Colby MD [facility] [place] [address] s/p left anatomic stemless TSA, 03/11/23 (Dr [...] Sig Dispensed Refills Start Date End Date bwvkffa-olrs-pftuo-oreg -capryl 100 mg-150 mg- 50 mg-150 mg Capsule Take by mouth. Just tumeric venlafaxine XR (Effexor-XR) 37.5 mg ER 24 hr capsule Take 37.5 mg by mouth daily. 02/03/2023 omeprazole (PriLOSEC) [address] capsule Take 20 mg by mouth nightly. 01/31/2023 hydroCHLOROthiazide (Hydrodiuril) 25 mg tablet Take 25 mg by mouth daily. 02/03/2023 fluticasone propionate (Flonase) 50 mcg/actuation [place], Suspension 2 sprays by Nasal route Once [...] who have questions please contact the health pharmacy care coordinator that requested your imaging first. ? Narrative 04/25/2023 4:11 PM EDT EXAMINATION: XR [...] patients who have questions please contactthe health pharmacy care coordinator that requested your imaging first. Christine Colby MD IMG DX ORDERABLES documented in this encounter Visit Diagnoses Diagnosis s/p left anatomic stemless TSA, 03/11/23 (Dr Colby) documented in this encounter Care Teams Dowel Machine Operator Relationship Specialty Start Date End Date Osbaldo Dewitt APRN [address] [place] [phone] PCP - General Family Medicine 12/31/22 documented as of this encounter
--- OUTSIDE RECORDS SUMMARY | 2024-10-22 13:20 | XMS_ITS | Encounter Summary ---
Author Organization [facility] Yasmany [place] [address] Care Team Providers Care Pharmaceutical Assistant Name Role Phone Kiara Pittman MD Primary Care Provider [phone] Encounter Details Date Type Department Care Team (Late st Contact Info) Description 12/24/2022 Ancillary Procedure Radiology Library at [facility] [place] [address] Osbaldo Dewitt, CEMENT FINISHING SUPERVISOR [address] [place] [phone] Social History Tobacco Use Types [...] DX Shoulder (12/24/2022 12:00 AM EDT) Narrative [facility] - 01/01/2023 2:39 PM EDT This exam is auto-finalizing. It's purpose is for storage only. Osbaldo Dewitt APRN IM FILM LIBRARY ORD ERABLES [place], [place] documented in this encounter Visit Diagnoses Not on filedocumented in this encounter Care Teams Pharmaceutical Assistant Relationship Specialty Start Date End Date Kiara Pittman MD PCP - General 08/28/10 12/30/22 documented as of this encounter
--- OUTSIDE RECORDS SUMMARY | 2024-10-22 13:20 | XMS_ITS | Encounter Summary ---
[place] [address] Care Team Providers Care Ward Assistant Name Role Phone Osbaldo Dewitt APRN Primary Care Provider [phone] Encounter Details Date Type Department Care Team (Late st Contact Info) Description 02/20/2023 Telephone [place] [address] Christine Colby MD [facility] [place] [address] Social History Tobacco Use Types Packs/Day Years [...] on filedocumented in this encounter Care Teams Ward Assistant Relationship Specialty Start Date End Date Osbaldo Dewitt APRN [address] [place] [address] [place] [phone] PCP - General Family Medicine 12/31/22 documented as of this encounter
--- OUTSIDE RECORDS SUMMARY | 2024-10-22 13:20 | XMS_ITS | Encounter Summary ---
Author Organization [facility] Address [facility] [place] [address] Care Team Providers Care Special Education Itinerant Teacher Name Role Phone Osbaldo Dewitt APRN Primary Care Provider [phone] Encounter Details Date Type Department Care Team [...] on filedocumented in this encounter Care Teams Special Education Itinerant Teacher Relationship Specialty Start Date End Date Osbaldo Dewitt APRN [address] [place] [phone] PCP - General Family Medicine 12/31/22 documented as of this encounter
--- OUTSIDE RECORDS SUMMARY | 2024-10-22 13:20 | XMS_ITS | Encounter Summary ---
Author Organization [facility] Address [facility] [address] Care Team Providers Care Emergency Medical Tech Name Role Phone Osbaldo Dewitt CAMILO Primary Care Provider [phone] Reason for Visit * Reason Onset Date Comments Other 02/10/2023 Encounter Details Date Type Department Care Team (Late st Contact Info) Description 02/10/2023 Telephone [place] [address] Christine Colby MD [facility] [place] [address] Other Social History Tobacco Use Types Packs/Day [...] ways. Best number to reach the caller: [phone] documented in this encounter Plan of Treatment Not on file documented as of this encounter Visit Diagnoses Not on filedocumented in this encounter Care Teams Emergency Medical Tech Relationship Specialty Start Date End Date Osbaldo Dewitt APRN [address] [place] [phone] PCP - General Family Medicine 12/31/22 documented as of this encounter
--- OUTSIDE RECORDS SUMMARY | 2024-10-22 13:20 | XMS_ITS | Encounter Summary ---
Author Organization [facility] Address [facility] [place] [address] Care Team Providers Care Film Or Videotape Editor Name Role Phone Osbaldo Dewitt APRN Primary Care Provider [phone] Reason for Visit * Reason Comments Follow-up 03-11-23 L [facility] Encounter Details Date Type Department Care Team (Late st Contact Info) Description 04/25/2023 2:40 PM EDT Office [place] [address] Christine Colby MD [facility] [place] [address] Status post replacement of left shoulder joint [...] - 04/25/2023 2:40 PM EDT Shoulder Service [place], [place] Date of Evaluation: 04/25/2023 Subjective: Sandie [...] were answered today. Christine Colby M.D., M.S. Music Executive of Orthopaedic Surgery Shoulder, Elbow, and Sports Medicine Department of Orthopaedic Surgery [place], [place] [address] This note was created with [employer] voice recognition software. Please excuse any typos. documented in this encounter Plan of Treatment Not on file documented as of this encounter Visit Diagnoses Diagnosis Status post replacement of left shoulder joint documented in this encounter Care Teams Film Or Videotape Editor Relationship Specialty Start Date End Date Osbaldo Dewitt APRN [address] [place] [phone] PCP - General Family Medicine 12/31/22 documented as of this encounter
--- OUTSIDE RECORDS SUMMARY | 2024-10-22 13:20 | XMS_ITS | Encounter Summary ---
Author Organization [facility] [place] [address] Care Team Providers Care Salesperson Meats Name Role Phone Osbaldo Dewitt APRN Primary Care Provider [phone] Encounter Details Date Type Department Care Team [...] filedocumented in this encounter Care Teams Salesperson Meats Relationship Specialty Start Date End Date Osbaldo Dewitt APRN [address] [place] [phone] PCP - General Family Medicine 12/31/22 documented as of this encounter
--- OUTSIDE RECORDS SUMMARY | 2024-10-22 13:20 | XMS_ITS | Encounter Summary ---
Author Organization [facility] [place] [address] Care Team Providers Care Obiee Obia Solution Architect Name Role Phone Osbaldo Dewitt APRN Primary Care Provider [phone] Encounter Details Date Type Department Care Team [...] on filedocumented in this encounter Care Teams Obiee Obia Solution Architect Relationship Specialty Start Date End Date Osbaldo Dewitt APRN [address] [place] [phone] PCP - General Family Medicine 12/31/22 documented as of this encounter"
--- OUTSIDE RECORDS SUMMARY | 2024-10-22 13:20 | XMS_ITS | Encounter Summary ---
Author Organization [facility] [place] [address] Care Team Providers Care Sporting Goods Sales Manager Name Role Phone Osbaldo Dewitt APRN Primary Care Provider [phone] Encounter Details Date Type Department Care Team (Late st Contact Info) Description 01/15/2023 Ancillary Procedure Radiology Library at [facility] [place] [address] Christine Colby MD [facility] [place] [address] Social History Tobacco Use Types Packs/Day Years [...] CT Shoulder (01/15/2023 12:00 AM EDT) Narrative [facility] - 01/22/2023 6:30 PM EDT This exam is auto-finalizing. It's purpose is for storage only. Christine Colby MD [facility] FILM LIBRARY ORD ERABLES [place], [place] documented in this encounter Visit Diagnoses Not on filedocumented in this encounter Care Teams Sporting Goods Sales Manager Relationship Specialty Start Date End Date Osbaldo Dewitt APRN [address] [place] [phone] PCP - General Family Medicine 12/31/22 documented as of this encounter
--- OUTSIDE RECORDS SUMMARY | 2024-10-22 13:20 | XMS_ITS | Encounter Summary ---
Author Organization [facility] [place] [address] Care Team Providers Care Patent Attorney Name Role Phone Osbaldo Dewitt Yaron PAGE Primary Care Provider [phone] Reason for Visit * Auth/Cert (Routine) Specialty Diagnoses / Procedures Referred By Chance t Referred To Contact Diagnoses shoulder arthritis Procedures PRO ARTHROPLASTY GLENOHUMERAL JOINT TOTAL SHOULDER PRO REPAIR BICEPS LONG TENDON TOTAL SHOULDER ARTHROPLASTY (WRVU 22.13) MODIFIER BEACH CHAIR SCHLEIN TENODESIS,BICEPS TENDON (PROXIMAL) (WRVU 10.17) Christine Colby MD [facility] [place] [address] [facility] Referral ID Status Reason Start Date Expiration Date Visits Re quested Visits Authorized [id number] 1 1 Encounter Details Date Type Department Care Team (Late st Contact Info) Description 03/11/2023 7:22 AM EDT Anesthesia Event [place] [address] Roderick Garcia MD [facility] [place] [address] Anesthesia Record Procedure Summary Procedure Name Responsible [...] 0648; metacarpal vein (top of hand), right; xtpt-lad-nbqlaw catheter system; Anatomical Landmarks; 20 gauge, 1 [...] Procedure Summary Date: 03/11/23 Room / Location: [facility] MA[facility] OR Anesthesia Start: 721 Anesthesia Stop: 954 Procedures: TOTAL SHOULDER ARTHROPLASTY (WRVU 22.13) (Left: Shoulder) MODIFIER BEACH CHAIR SCHLEIN (Shoulder) TENODESIS,BICEPS TENDON (PROXIMAL) (WRVU 10.17) (Left: Shoulder) MODIFIER SIDUS SHOULDER CHANDLER BIOMET Diagnosis: (shoulder arthritis) Surgeons: Christine Colby MD Responsible Provider: Roderick Garcia MD Anesthesia Type: general ASA Status: 2 All Anesthesia Providers: Anesthesiologist: Roderick Garcia MD LONG TERM ACUTE CARE REGISTERED NURSE: Jay Lynn CRNA Vitals Value Taken Time [...] throughout, tolerated procedure without issue. Performed by: Resident/LONG TERM ACUTE CARE REGISTERED NURSE: Selene Lindsey MD Fellow: Gladys Clarke MD [...] arthritis. 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 Performed by: ?? Resident/LONG TERM ACUTE CARE REGISTERED NURSE: ? Selene Lindsey MD ?? Fellow: ?Gladys Clarke MD ?? Attending Physician: ? Kevin Smith MD Authorized by: Kevin Smith MD Kevin Smith MD MUSIC SOUND LIGHT TECHNICIAN [facility] documented in this encounter Visit Diagnoses [...] 03/11/2023 9:14 AM EDT 4 mg PHENYLephrine (Kirs-Synephrine) (80 mcg/mL) in sodium chloride 0.9% 250 [...] Units documented in this encounter Care Teams Patent Attorney Relationship Specialty Start Date End Date Osbaldo Dewitt, CAMILO [address] [place] [phone] PCP - General Family Medicine 12/31/22 documented as of this encounter
--- OUTSIDE RECORDS SUMMARY | 2024-10-22 13:20 | XMS_ITS | Encounter Summary ---
Author Organization [facility] Address [facility] [place] [address] Care Team Providers Care Price Changer Name Role Phone Osbaldo Dewitt APRN Primary [...] of both shoulders Osbaldo Dewitt APRN [address] [place] [address] [facility] [address] [place] [phone] Referral ID Status Reason Start Date Expiration Date V isits Requested Visits Authorized [id number] Closed Consult, Test & Treat PCP Updated and/or Approved 12/31/2022 12/31/2023 6 6 Encounter Details Date Type Department Care Team (Latest Contact Info) Description 02/07/2023 9:00 AM EDT Office [place] [address] Christine Colby MD [facility] [place] [address] Primary osteoarthritis of both shoulders [...] - 02/07/2023 9:00 AM EDT Shoulder Service [place], [place] New Patient Evaluation Date of Evaluation: 02/07/2023 Referring Provider: Osbaldo Dewitt History of Present Illness: Sandie Manriquez is a pleasant 62 y.o. 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 She has been dealing with problems for years, but has been especially painful recently. She saw Dr. Patel in [place] and discussed shoulder arthroplasty. At this point, [...] Daily. ??? fluticasone propionate (Flonase) 50 mcg/actuation [place], Suspension 2 sprays by Nasal route Once [...] Colby M.D., M.S. Professor of Orthopaedic Surgery [facility] Department [place] [address] This note was created with [employer] voice recognition software. Please excuse any typos. documented in this encounter Plan of Treatment Not on file documented as of this encounter Visit Diagnoses Diagnosis Primary osteoarthritis of both shoulders documented in this encounter Care Teams Price Changer Relationship Specialty Start Date End Date Osbaldo Dewitt APRN [address] [place] [phone] PCP - General Family Medicine 12/31/22 documented as of this encounter
--- OUTSIDE RECORDS SUMMARY | 2024-10-22 13:20 | XMS_ITS | Encounter Summary ---
Author Organization [place] [id number] Care Team Providers Care Set Up Technician Name Role Phone Osbaldo Dewitt APRN Primary Care Provider Reason for Referral * Consultation (Routine) - Closed Specialty Diagnoses / Procedures Referred By Chance le Referred To Contact Orthopaedics Diagnoses Right shoulder pain, unspecified chronicity Chronic pain of both shoulders Osbaldo Dewitt APRN [address] [place] [address] [facility] [address] [place] [phone] Referral ID Status Reason Start Date Expiration Date V isits Requested Visits Authorized [id number] Closed Consult, Test & Treat PCP Updated and/or Approved 12/31/2022 12/31/2023 6 6 Encounter Details Date Type Department Care Team (Latest Contact Info) Description 12/31/2022 Transcribe Orders eDH Incoming Referrals [phone] Osbaldo Dewitt APRN [address] [place] [phone] Right shoulder pain, unspecified chronicity; [...] region documented in this encounter Care Teams Set Up Technician Relationship Specialty Start Date End Date Osbaldo Dewitt APRN [address] [place] [phone] PCP - General Family Medicine 12/31/22 documented as of this encounter
--- OUTSIDE RECORDS SUMMARY | 2024-10-22 13:20 | XMS_ITS | Encounter Summary ---
Author Organization [facility] [place] [address] Care Team Providers Care Carpentry Supervisor Name Role Phone Osbaldo Dewitt APRN Primary Care Provider [phone] Encounter Details Date Type Department Care Team (Late st Contact Info) Description 01/17/2023 Ancillary Procedure Radiology Library at [facility] [place] [address] Christine Colby MD [facility] [place] [address] Social History Tobacco Use Types Packs/Day Years [...] MR Shoulder (01/17/2023 12:00 AM EDT) Narrative [facility] - 01/22/2023 6:31 PM EDT This exam is auto-finalizing. It's purpose is for storage only. Christine Colby MD [facility] FILM LIBRARY ORD ERABLES [place], [place] documented in this encounter Visit Diagnoses Not on filedocumented in this encounter Care Teams Carpentry Supervisor Relationship Specialty Start Date End Date Osbaldo Dewitt APRN [address] [place] [phone] PCP - General Family Medicine 12/31/22 documented as of this encounter
--- OUTSIDE RECORDS SUMMARY | 2024-10-22 13:20 | XMS_ITS | Encounter Summary ---
Author Organization [facility] Address [facility] [place] [address] Care Team Providers Care Rn Perioperative Name Role Phone Osbaldo Dewitt APRN Primary Care Provider [phone] Encounter Details Date Type Department Care Team [...] filedocumented in this encounter Care Teams Rn Perioperative Relationship Specialty Start Date End Date Osbaldo Dewitt APRN [address] [place] [phone] PCP - General Family Medicine 12/31/22 documented as of this encounter
--- OUTSIDE RECORDS SUMMARY | 2024-10-22 13:20 | XMS_ITS | Encounter Summary ---
[place] [address] Care Team Providers Care Psychologist Industrial Organizational Name Role Phone Osbaldo Dewitt APRN Primary Care Provider [phone] Reason for Referral * Consultation (Routine) - Closed Specialty Diagnoses / Procedures Referred By Chance le Referred To Contact Rheumatology Diagnoses Glenohumeral arthritis, left Synovitis Rosalee Powers PA [facility] [place] [address] [facility] [address] [place] [phone] Referral ID Status Reason Start Date Expiration Date V isits Requested Visits Authorized [id number] Closed Consult, Test & Treat 03/25/2023 03/24/2024 1 1 Reason for Visit * Reason Comments Post Op 03-11-23 left TSA Encounter Details Date Type Department Care Team (Late st Contact Info) Description 03/25/2023 10:00 AM EDT Office [place] [address] Rosalee Powers PA [facility] [place] [address] s/p left anatomic stemless TSA, [...] NAME: Sandie Manriquez AGE: 62 y.o. MR#: [id number] DATE OF VISIT: 03/25/2023 DATE OF SURGERY: [...] is suggested. SURVEY RESPONSES: 03/19/2023 4:11 PM [facility] Surgical Postop Visit PROMIS-10 General Health Good [...] Again Definitely yes 03/19/2023 4:14 PM Orthopeadics [facility] Response ASES VAS-RIGHT 6 ASES ADL-RIGHT ARM [...] x-rays. The above documentation was completed using [employer] voice recognition software. documented in this encounter [...] who have questions please contact the health child care that requested your imaging first. ? Electronically signed by: Lynda Parekh MD, [facility] ([phone]), at 04/25/2023 4:11 PM Narrative 04/25/2023 4:11 [...] patients who have questions please contactthe health child care that requested your imaging first. Electronically signed by: Lynda Parekh MD, [facility]([phone]), at 04/25/2023 4:11 PM Christine Colby MD IMG DX ORDERABLES * Differential, Automated (03/25/2023 11:14 AM EDT) Neutrophil % 69.7 % [facility] Neutrophil Absolute 5.69 1.70 - 6.10 x10(3)/[facility] LAB[facility] Lymph % 15.7 % [facility] Lymphocytes Abs 1.3 0.9 - 3.2 x10(3)/[facility] LABORATORY Monocyte % 11.1 % [facility] IT[facility] LABOR[facility] Monocyte Abs 0.9 0.3 - 0.9 x10(3)/[facility] LABOR[facility] Eos % 2.4 % [facility] Eosinophils Abs 0.2 0.0 - 0.4 x10(3)/[facility] LABORATORY Basophil % 0.7 % [facility] Baso Absolute 0.1 0.0 - 0.1 x10(3)/[facility] LABORATORY Immature Gran % 0.40 % [facility] Comment: Immature granulocytes(IG's)percentage and absolute count will include metamyelocytes, myelocytes, and promyelocytes. Blood smears from CBCs yielding IG's will be scanned manually for concordance. If this scan disagrees with the automated IG or if promyelocytes are noted, a manual differential will be performed. Immature Gran Absolute 0.03 0.00 - 0.04 x10(3)/[facility] LABORATORY Blood 03/25/2023 11:1 4 AM EDT 03/25/2023 11:23 AM EDT Narrative Resulting Agency Comment Spec In Lab Rosalee ANDRES HEMATOLOGY ORDERABL ES [facility] [address] * (ABNORMAL) Hemogram (03/25/2023 11:14 AM EDT) White Blood Cell 8.2 4.0 - 9.5 x10(3)/mc L [facility] Red Blood Cell 3.98(L) 4.00 - 5.21 x10(6)/mc L [facility] Hemoglobin 12.6 11.7 - 15.5 g/dL [facility] Hematocrit 37.3 35.7 - 45.8 % [facility] Mean Cell Volume 93.7 82.6 - 94.4 fL [facility] Mean Cell Hemoglobin 31.7 27.1 - 32.0 pg [facility] Mean Cell Hemoglobin Concentration 33.8 31.7 - 35.0 g/dL [facility] Platelet 357 145 - 357 x10(3)/mc L [facility] RDW Standard Deviation 46.3(H) 37.0 - 46.0 fL [facility] RDW coefficient of variation 13.4 11.5 - 14.1 % [facility] Mean Platelet Volume 9.7 7.6 - 12.9 fL [facility] NRBC% auto 0.0 % [facility] NRBC Absolute 0.000 0.000 - 0.000 x10(3)/mc L [facility] Blood 03/25/2023 11:1 4 AM EDT 03/25/2023 11:23 AM EDT Narrative Resulting Agency Comment Spec In Lab Rosalee ANDRES HEMATOLOGY ORDERABL ES [facility] [address] * SIRENA Antibody Screen (03/25/2023 11:14 AM EDT) SIRENA Ab Screen Negative Negative [facility] Comment: This [...] performed by the Special Chemistry Laboratory at [facility] This change in testing location is associated with a change is testing method and reference intervals. Please review the results of this test in association with the posted reference intervals. dsDNA Ab <0.6 <=15.0 IU/mL [facility] Comment: <10 [...] performed by the Special Chemistry Laboratory at [facility]. This change in testing location is associated with a change is testing method and reference intervals. Please review the results of this test in association with the posted reference intervals. Blood 03/25/2023 11:1 4 AM EDT 03/25/2023 11:59 AM EDT Narrative Resulting Agency Comment Spec In Lab Christine Colby MD LAB SEND OUT ORDERAB LES Performing Organization Address [facility] Co de Phone Number [facility] [address] * (ABNORMAL) Sedimentation rate (03/25/2023 11:14 AM EDT) Sedimentation Rate Automated 45(H) 2 - 39 mm/hr [facility] Comment: Effective September 15, 2019 new capillary photometric technology has resulted in a change in reference ranges. It is recommended that each ESR result be reviewed with its own age appropriate reference range. Blood 03/25/2023 11:1 4 AM EDT 03/25/2023 11:23 AM EDT Narrative Resulting Agency Comment Spec In Lab Christine Colby MD HEMATOLOGY ORDERABLE S Performing Organization Address [facility] de Phone Number [facility] [address] * Rheumatoid factor, quant (03/25/2023 11:14 AM EDT) Rheumatoid Factor 10 <=14 IU/mL [facility] Blood 03/25/2023 11:1 4 AM EDT 03/25/2023 11:23 AM EDT Narrative Resulting Agency Comment Spec In Lab Christine Colby MD CHEMISTRY ORDERABLES Performing Organization Address [facility] Co de Phone Number [facility] [address] * Cyclic Citrullinated Peptide (03/25/2023 11:14 AM EDT) Cyclic Citrulline Peptide <8.0 <=16.9 unit/mL [facility] Blood 03/25/2023 11:1 4 AM EDT 03/25/2023 11:23 AM EDT Narrative Resulting Agency Comment Spec In Lab Christine Colby MD CHEMISTRY ORDERABLES Performing Organization Address [facility]/ZIP Co de Phone Number [facility] [address] * CRP, acute inflammation (03/25/2023 11:14 AM EDT) C-Reactive Protein <3.0 <=4.9 mg/L [facility] Blood 03/25/2023 11:1 4 AM EDT 03/25/2023 11:23 AM EDT Narrative Resulting Agency Comment Spec In Lab Christine Colby MD CHEMISTRY ORDERABLES [facility] [place] [address] documented in this encounter Visit Diagnoses Diagnosis s/p left anatomic stemless TSA, 03/11/23 (Dr Colby) Synovitis Synovitis and tenosynovitis, unspecified s/p left anatomic stemless TSA, 03/11/23 (Dr Colby) documented in this encounter Care Teams Psychologist Industrial Organizational Relationship Specialty Start Date End Date Osbaldo Dewitt APRN [address] [place] [phone] PCP - General Family Medicine 12/31/22 documented as of this encounter
== END 2024-10-21 13:15 | disposition home or self-care (01) ==
LOC: LBN 13:14
PROVIDERS: PCP Nurse Practitioner Family; Visit Provider Nurse Practitioner Family
DX: L82.1 Other seborrheic keratosis (principal); D18.09 Hemangioma of other sites
CPT/HCPCS: 88305

== ENCOUNTER 2024-10-22 14:56 | Outpatient (REF) | payer BC, SELFPAY ==
--- OUTSIDE RECORDS SUMMARY | 2024-10-22 01:03 | XMS_ITS | Encounter Summary ---
Author Organization [facility] Address [address] [place] [address] Care Team Providers Care Press Writer Name Role Phone Osbaldo Dewitt NP Primary Care Provider [phone] Reason for Visit * Reason Onset Date Comments Results 10/04/2024 Encounter Details Date Type Department Care Team (Late st Contact Info) Description 10/04/2024 Telephone [facility] - [facility] Integrative Family Medicine [facility] [address] [place] [address] Osbaldo Dewitt NP [address] [place] [address] Results Social History Tobacco Use Types Packs/Day Years Used Date Smoking Tobacco: Former Cigarettes 1 1977 Smokeless Tobacco: Never Alcohol Use Standard Drinks/Week Comments Not Currently 0 (1 standard drink = 0.6 oz pur e alcohol) 2/night [facility] Utilities Answer Date Recorded In the past 12 months has [employer] electric, gas, oil, or water company threatened to shut off services in your [...] place to sleep or slept in a residential (including now)? No 10/15/2023 C - Inadequate Housing Answer Date Re corded What is your living situation today? I have a [facility] [place] place to live 08/25/[address] you li ve. Do you have problems with any of the following? None of the above 08/25/2024 [facility] - Transportation Answer Date Record ed In the past 12 months, has l ack of reliable transportation kept you from medical appointments, meetings, work or from getting things needed for daily living? No 08/25/2024 [facility] - Personal Safety Answer Date Recor [...] scream or curse at you? Never 08/25/2024 [facility] - Financial Strain Answer Date Mango rded How hard is it for you to pa y for the very basics like food, housing, medical care, and heating? Would you say it is: Not hard at all 08/25/2024 [facility] - Employment Answer Date Recorded Do you want help finding or keeping work or a job? I do not need or want help 08/25/2024 [facility] - Social Connections Answer Date Re corded If for any reason you need h elp with day-to-day activities such as bathing, preparing meals, shopping, managing finances, etc., do you get the help you need? I don't need any help 08/25/2024 How often do you feel lonely or isolated from those around you? Rarely 08/25/2024 [facility] - Education Answer Date Recorded Do you speak a language other than Salvadorean at [employer]? No 08/25/2024 Do you want help with school or training? For example, starting or completing job training or getting a high school diploma, GED or equivalent. 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 * Telephone Encounter - Osbaldo Dewitt NP - 10/04/2024 1034 EST Please let Sandie know her DEXA scan shows normal bone density. documented in this encounter Plan of Treatment Upcoming Encounters Date Type Department Care Team (Late st Contact Info) Description 11/11/2024 15:30 EST Office Visit [facility] Integrative Family Medicine [address] [address] Osbaldo Dewitt NP [address] [place] [address] documented as of this encounter Visit Diagnoses Not on filedocumented in this encounter Care Teams Press Writer Relationship Specialty Start Date End Date Osbaldo Dewitt NP [address] [place] [address] PCP - General 09/01/19 documented as of this encounter
--- OUTSIDE RECORDS SUMMARY | 2024-10-22 01:03 | XMS_ITS | Clinical Summary ---
Author Organization [facility] Address [address] [place] [address] Care Team Providers Care Rn New Graduate Name Role Phone Osbaldo Dewitt NP Primary Care Provider [phone] Allergies Active Allergy Reactions Criticality Noted Date Comments Miconazole Rash 04/20/2019 burn Other - See Comments 10/02/2019 dust mites - sinus issues Pollen Extracts 10/02/2019 sinus issues Sulfa (Sulfonamide Antibiotics) Rash 10/02/2019 sulfa 1 of 2 sulfa 2 of 2 Medications fluticasone propionate (FLONASE) 50 mcg/actuation nasal spray Instill 2 Sprays into both nostrils daily as needed. 5 Active cholecalciferol, Vitamin D3, 1,000 unit tablet Take 1 Tablet by mouth daily. Active [id number] ORAL Take by mouth. Activ e acetaminophen (TYLENOL) 500 mg tablet Take 2 Tablets by mouth 2 times daily. PRN Active omeprazole (PRILOSEC) 20 mg capsuleIndicatio ns:Gastroesophag eal reflux disease TAKE ONE CAPSULE BY MOUTH AT BEDTIME 90 Capsule 3 3 Active dilTIAZem (CARDIZEM CD) 180 mg ER capsule Take 1 Capsule by mouth every morning. 90 Capsule 3 3 Active Additional Information Patient taking differently: 240 mgoral EVERY MORNING, Reported on 09/07/2024 doxycycline (PERIOSTAT) 20 mg tabletIndication s:Rosacea TAKE TWO TABLETS BY MOUTH ONCE A [...] 4 Active venlafaxine (EFFEXOR-XR) 75 mg XR capsuleIndicatio ns:Anxiety Take 1 Capsule by mouth daily. 30 Capsule 2 4 Active flecainide (TAMBOCOR) 100 mg tabletIndication s:Atrial fibrillation, unspecified type (HCC-CMS) Take 1 Tablet by mouth 2 times daily. 180 Tablet 1 4 Active Active Problems Problem Noted Date Diagnosed [...] Encounters Date Type Department Care Team Description 10/04/[address] [phone] Osbaldo Dewitt NP Results 09/07/2024 10:45 EST Office Visit [address] [phone] Osbaldo Dewitt NP Encounter for annual physical exam (Primary Dx); Need for vaccination; Encounter for screening mammogram for malignant neoplasm of breast; Menopausal and postmenopausal disorder; Cervical cancer screening; Class 2 obesity due to excess calories without serious comorbidity with body mass index (BMI) of 35.0 to 35.9 in adult; Atrial fibrillation, unspecified type ([facility]); Anxiety 08/16/[address] [phone] Osbaldo Dewitt NP Medications Refill 08/16/[address] [address] Osbaldo Dewitt NP Medications Refill from Last 3 Months Immunizations Name Administration Dates Next Due Covid-19 mRNA Pediatric Vacc ine (MODERNA PEDIATRIC COVID-19) PF 0.5 mL IM (6-11 yrs) 08/28/2021 Covid-19 mRNA Vaccine (MODER NA COVID-19) PF 0.5 ml IM (12 yrs+) 08/28/2021,01/25/2021,12/28/2020 Covid-19 mRNA-LNP 2022- Va ccine (MODERNA COVID-19) PF 0.5 mL [...] GASTRIC FUNDOPLICATION 10/06/2008 - 10/05/2009 Ramy-fundoplication [place] [facility] CARPAL TUNNEL RELEASE Bilateral 2002, 2023 SHOULDER SURGERY 12/05/2023 - 01/04/[address] [facility] - [facility] FINGER TRIGGER RELEASE 10/06/2023 - 10/05/2024 Left [...] = 0.6 oz pur e alcohol) 2/night [facility] Utilities Answer Date Recorded In the past 12 months has th e electric, gas, oil, or water company [...] slept in a custodial (including now)? No 10/15/2023 [facility] - Inadequate Housing Answer Date Re corded What is your living situation today? I have a [facility] [place] place to live 08/25/[address] you li ve. Do you have problems with any of the following? None of the above 08/25/2024 [facility] - Transportation Answer Date Record ed In the past 12 months, has l ack of reliable transportation kept you from medical appointments, meetings, work or from getting things needed for daily living? No 08/25/2024 [facility] - Personal Safety Answer Date Recor [...] scream or curse at you? Never 08/25/2024 [facility] - Financial Strain Answer Date Mango rded How hard is it for you to pa y for the very basics like food, housing, medical care, and heating? Would you say it is: Not hard at all 08/25/2024 [facility] - Employment Answer Date Recorded Do you want help finding or keeping work or a job? I do not need or want help 08/25/2024 [facility] - Social Connections Answer Date Re corded If for any reason you need h elp with day-to-day activities such as bathing, preparing meals, shopping, managing finances, etc., do you get the help you need? I don't need any help 08/25/2024 How often do you feel lonely or isolated from those around you? Rarely 08/25/2024 [facility] - Education Answer Date Recorded Do you speak a language other than Dominican at [facility]? No 08/25/2024 Do you want help with school or training? For example, starting or completing job training or getting a high school diploma, GED or equivalent. No 08/25/2024 [facility] - Physical Activity Answer Date Rec orded [...] Industry Job Start Date Job End Date [employer] Not on file Not on file Not [...] 11/11/2024 15:30 EST Office Visit [facility] Family Medicine [facility] [address] [place] [address] Osbaldo Dewitt, FURNACE WORKER [address] [place] [address] Health Maintenance Due Date Last [...] Completed 07/06/2024, 07/25/2023 Pneumococcal Immunization (65+) Completed 4 RETIRED Cervical Cancer Screening Discontinued 09/07/2024, 04/20/2019, 05/05/2014 HIV Screening Discontinued Procedures Procedure Name Priority Date/Time Associated Diagnosis Comments MA OUTSIDE IMAGES MAMMO SCREENING Routine 09/30/2024 8:49 EST XR OUTSIDE IMAGES DEXA Routine 09/30/2024 8:46 EST PAP TEST Routine 09/07/2024 11:43 EST Cervical [...] Recently Relevant to Health Maintenance Results * MA OUTSIDE IMAGES MAMMO SCREENING (09/30/2024 8:49 EST) Narrative 10/05/2024 8:49 EST This is a non-reportable exam. us External Imaging IMG OTHER IMAGING ORDERABLES Fi nal Result * XR OUTSIDE IMAGES DEXA (09/30/2024 8:46 EST) Narrative 10/05/2024 8:46 EST This is a non-reportable exam. us External Imaging IMG OTHER IMAGING ORDERABLES Fi nal Result * PAP TEST (09/07/2024 11:43 EST) Specimens A. Cervix and/or Endocervix , ThinPrep Imaging System with Manual Evaluation 09/14/2024 14:06 [facility] Specimen Adequacy Satisfactory for Evaluation - assessment of transformation zone component not applicable ( e.g. atrophy, vaginal sample, hysterectomy) 09/14/2024 14:06 [facility] General Categorization Negative for intraepithelial lesion or malignancy 09/14/2024 14:06 [facility] Attestation . 09/14/2024 14:06 [facility] at 1406 Clinical History Screening cervical cancer 09/14/2024 14:06 [facility] Performing Lab [facility] 09/14/2024 14:06 [facility] Scanned Images 09/14/2024 14:06 [facility] HPV High Risk type 16, PCR Negative 09/14/2024 14:06 [facility] HPV High Risk type 18, PCR Negative 09/14/2024 14:06 [facility] HPV Other High Risk Types, PCR Negative The following Other High Risk HPV types were not detected: 31,33, 35, 39, 45, 51, 52, 56, 58, 59, 66 and 68. 09/14/2024 14:06 [facility] Pap Test CERVIX UTERI STRUCTURE / Unknown 09/07/2024 11:43 EST 09/07/2024 11:43 EST us Osbaldo Dewitt NP PATHOLOGY ORDERABLES Final Res ult [facility] [address] [place] [address] * HPV DNA DETECTION WITH GENOTYPING, PCR (09/07/2024 11:43 EST) HPV High Risk type 16, PCR Negative Negative 09/14/2024 14:06 [facility] HPV High Risk type 18, PCR Negative Negative 09/14/2024 14:06 [facility] HPV other High Risk types, PCR Negative Negative 09/14/2024 14:[address] [facility] Comment: The following Other High Risk HPV types were not detected: ??31,33, 35, 39, 45, 51, 52, 56, 58, 59, 66 and 68. Pap Test CERVIX UTERI STRUCTURE / Unknown 09/07/2024 11:43 EST 09/13/2024 10:39 EST us Osbaldo Dewitt NP MICROBIOLOGY - GENERAL ORDERAB LES Final Result [facility] [address] [place], [place] [id number] * MA BREAST SCREENING JULIAN BILATERAL (03/01/2022 [...] EST) Triglyceride 83 <150 mg/dL 12/15/2020 9:04 [facility] Comment: Adult: Normal: ?<150 mg/dl ? Borderline High: 150-199 mg/dl ? High: ?200-499 mg/dl ? Very High: >wm=340 Cholesterol 225(H) <200 mg/dL 12/15/2020 9:04 [facility] Comment: Acceptable: ??<200 Borderline: ??200-239 High: ?> or = 240 Chol/HDL Ratio 3.5 0 - 4.5 12/15/2020 9:04 [facility] Comment: DESIRABLE RATIO IS LESS THAN 4.1 PATIENTS ARE CONSIDERED AT RISK: WOMEN RATIO >5 MEN RATIO >6 FASTING? - [facility] Yes 7:37 [facility] HDL 63(H) 40 - 60 mg/dL 12/15/2020 9:04 [facility] Comment: ?? Reference Range Low: ? < 40 ??mg/dL Normal: ??40-60 mg/dL High: ?>= 60 mg/dL LDL CHOLESTEROL - [facility] 145(H) 60 - 100 mg/dL 12/15/2020 9:04 [facility] Non HDL Cholesterol 162 mg/dl 12/15/2020 9:04 [facility] Comment: Desirable: ?Less than 130 Borderline High: ??130-159 High: ? 160-189 Very High: ?Greater than or equal to 190 12/15/2020 7:37 EST 12/15/2020 7:37 EST Narrative [facility] - 12/15/2020 9:04 EST Does PT Have a Latex Allergy? NO us Osbaldo Dewitt NP CHEMISTRY & BLOOD GAS ORDERABL ES Final Result Performing Organization Address City/State/[facility] Co de Phone Number [facility] [address] [place] [address] from Last 3 Months or Most Recently Relevant to Health Maintenance Insurance MEDICARE [facility] Care Teams Rn New Graduate Relationship Specialty Start Date End Date Osbaldo Dewitt NP [address] [place] [address] PCP - General 09/01/19
--- OUTSIDE RECORDS SUMMARY | 2024-10-22 01:03 | XMS_ITS | Referral Summary ---
Author Organization [facility] Address [address] [place] [address] Care Team Providers Care Mechanic Name Role Phone Osbaldo Dewitt NP Primary Care Provider [phone] Encounters Date Type Department Care Team Description 10/04/[address] [address] Osbaldo Dewitt NP Results 09/07/2024 10:45 EST Office Visit [address] [address] Osbaldo Dewitt NP Encounter for annual physical exam (Primary Dx); Need for vaccination; Encounter for screening mammogram for malignant neoplasm of breast; Menopausal and postmenopausal disorder; Cervical cancer screening; Class 2 obesity due to excess calories without serious comorbidity with body mass index (BMI) of 35.0 to 35.9 in adult; Atrial fibrillation, unspecified type (HCC-CMS); Anxiety 08/16/[address] [phone] Osbaldo Dewitt NP Medications Refill 08/16/2024 Refill [facility] Family Medicine [address] [address] Osbaldo Dewitt, SILK CONDITIONER Medications Refill from Last 3 Months Allergies [...] Take 1 Tablet by mouth daily. Active [id number] ORAL Take by mouth. Activ e acetaminophen [...] = 0.6 oz pur e alcohol) 2/night [facility] Utilities Answer Date Recorded In the past 12 months has [employer], oil, or water [employer] threatened to shut off services in your [...] place to sleep or slept in a correction (including now)? No 10/15/2023 C - Inadequate Housing Answer Date Re corded What is your living situation today? I have a [facility] place to live 08/25/[address] you li ve. Do you have problems with any of the following? None of the above 08/25/2024 C - Transportation Answer Date Record ed In the past 12 months, has l ack of reliable transportation kept you from medical appointments, meetings, work or from getting things needed for daily living? No 08/25/2024 [facility] - Personal Safety Answer Date Recor ded How often does anyone, inclu ding family and friends, physically hurt you? Never 08/25/2024 How often does anyone, inclu ding family and friends, insult or talk down to you? Never 08/25/2024 How often does anyone, inclu ding family and friends, threaten you with harm? Never 08/25/2024 How often does anyone, inclu ding family and friends, scream or curse at you? Never 08/25/2024 [facility] - Financial Strain Answer Date Mango rded How hard is it for you to pa y for the very basics like food, housing, medical care, and heating? Would you say it is: Not hard at all 08/25/2024 [facility] - Employment Answer Date Recorded Do you want help finding or keeping work or a job? I do not need or want help 08/25/2024 [facility] - Social Connections Answer Date Re corded If for any reason you need h elp with day-to-day activities such as bathing, preparing meals, shopping, managing finances, etc., do you get the help you need? I don't need any help 08/25/2024 How often do you feel lonely or isolated from those around you? Rarely 08/25/2024 [facility] - Education Answer Date Recorded Do you speak a language other than Nepali at [facility]? No 08/25/2024 Do you want help with school or training? For example, starting or completing job training or getting a high school diploma, GED or equivalent. 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 atrophy, vaginal sample, hysterectomy) 09/14/2024 14:06 [facility] General Categorization Negative for intraepithelial lesion or malignancy 09/14/2024 14:06 [facility] Attestation . 09/14/2024 14:06 [facility] at 1406 Clinical History Screening cervical cancer 09/14/2024 14:06 [facility] Performing Lab [facility] 09/14/2024 14:06 [facility] Scanned Images 09/14/2024 14:06 [facility] HPV High Risk type 16, PCR Negative 09/14/2024 14:06 [facility] HPV High Risk type 18, PCR Negative 09/14/2024 14:06 [facility] HPV Other High Risk Types, PCR Negative The following Other High Risk HPV types were not detected: 31,33, 35, 39, 45, 51, 52, 56, 58, 59, 66 and 68. 09/14/2024 14:06 [facility] Pap Test CERVIX UTERI STRUCTURE / Unknown 09/07/2024 11:43 EST 09/07/2024 11:43 EST Osbaldo Dewitt NP PATHOLOGY ORDERABLES Final Res ult Performing Organization Address [facility] Co de Phone Number [facility] [address] [place] [id number] * HPV DNA DETECTION WITH GENOTYPING, PCR (09/07/2024 11:43 EST) HPV High Risk type 16, PCR Negative Negative 09/14/2024 14:06 EST [facility] HPV High Risk type 18, PCR Negative Negative 09/14/2024 14:06 EST [facility] HPV other High Risk types, PCR Negative Negative 09/14/2024 14:06 EST [facility] Comment: The following Other High Risk HPV types were not detected: ??31,33, 35, 39, 45, 51, 52, 56, 58, 59, 66 and 68. Pap Test CERVIX UTERI STRUCTURE / Unknown 09/07/2024 11:43 EST 09/13/2024 10:39 EST Osbaldo Dewitt NP MICROBIOLOGY - GENERAL ORDERAB LES Final Result Performing Organization Address [facility] de Phone Number [facility] [address] [place] [phone] * MA BREAST SCREENING JULIAN BILATERAL (03/01/2022 [...] ? High: ?200-499 mg/dl ? Very High: >ub=105 Cholesterol 225(H) <200 mg/dL 12/15/2020 9:04 [facility] Comment: Acceptable: ??<200 Borderline: ??200-239 High: ?> or = 240 Chol/HDL Ratio 3.5 0 - 4.5 12/15/2020 9:04 [facility] Comment: DESIRABLE RATIO IS LESS THAN 4.1 PATIENTS ARE CONSIDERED AT RISK: WOMEN RATIO >5 MEN RATIO >6 FASTING? - [facility] Yes 7:37 [facility] HDL 63(H) 40 - 60 mg/dL 12/15/2020 9:[address] [facility] Comment: ?? Reference Range Low: ? < 40 ??mg/dL Normal: ??40-60 mg/dL High: ?>= 60 mg/dL LDL CHOLESTEROL - [facility] 145(H) 60 - 100 mg/dL 12/15/2020 9:[address] [facility] Non HDL Cholesterol 162 mg/dl 12/15/2020 9:[address] [facility] Comment: Desirable: ?Less than 130 Borderline High: ??130-159 High: ? 160-189 Very High: ?Greater than or equal to 190 12/15/2020 7:37 EST 12/15/2020 7:[address] [facility] - 12/15/2020 9:04 EST Does PT Have a Latex Allergy? NO us Osbaldo Dewitt SILK CONDITIONER CHEMISTRY & BLOOD GAS ORDERABL ES Final Result [facility] [address] [place] [address] from Last 3 Months or Most Recently Relevant to Health Maintenance Insurance MEDICARE [facility] Care Teams Mechanic Relationship Specialty Start Date End Date Osbaldo Dewitt NP [address] [place] [address] PCP - General 09/01/19
--- OUTSIDE RECORDS SUMMARY | 2024-10-22 01:04 | XMS_ITS | Encounter Summary ---
Author Organization [facility] Address [address] [place] [address] Care Team Providers Care Kitchen Help Handyman Name Role Phone Osbaldo Dewitt DIESEL ENGINE MECHANIC APPRENTICE Primary Care Provider [phone] Unavailable [phone] Reason for Visit * Reason Comments Nutrition Counseling Weight * Consult (Routine/Next Available) - Specialty Report Received Specialty Diagnoses / Procedures Referred By Chance le Referred To Contact Diagnoses Class 1 obesity due to excess calories with serious comorbidity and body mass index (BMI) of 34.0 to 34.9 in adult Osbaldo Dewitt NP Phone: tel: fax: [facility] - [address] [address] Phone: tel: fax: Referral ID Status Reason Start Date Expiration Date Visits Requested Visits Authorized [id number] Specialty Report Received Specialty Services Required 3 1 1 Encounter Details Date Type Department Care Team ([facility] st Contact Info) Description 10/21/2023 9:30 EST Community Health Team [facility] - [address] [address] Cht Registered Dietitian, [facility] Social History Tobacco Use Types Packs/Day [...] 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 She hasa [employer] treadmill and knows that mice have gotten in to it and it needs to be cleaned out. Estimated energy requirement: 1900 Estimated intake: [id number] Recommended protein intake: 65-80 g Estimated protein intake: 58-60 g Anticipated inadequate intake of protein, vegetables, fiber, calcium Recommend to increase protein by 20-30 g daily. Recommend Premier Protein beverage mid day Recommend to add 1-2 servings veggies daily Pat plans on working on adding the above and will call [employer] to arrange for an in home service call to clean out machine so she can use it again to start walking more regularly again F/U PRN documented in this encounter Plan of Treatment Upcoming Encounters Date Type Department Care Team (Late st Contact Info) Description 11/11/2024 15:30 EST Office Visit [facility] [address] [address] Osbaldo Dewitt NP [address] [place] [address] [phone] documented as of this encounter Visit Diagnoses Not on filedocumented in this encounter Care Teams Kitchen Help Handyman Relationship Specialty Start Date End Date Osbaldo Dewitt NP [address] [place] [address] [phone] PCP - General 09/01/[address] [place] [id number] Registered Dietitian Clinical Nutrition 10/21/23 documented as of this encounter
--- OUTSIDE RECORDS SUMMARY | 2024-10-22 01:04 | XMS_ITS | Encounter Summary ---
Author Organization [facility] Address [address] [place] [address] Care Team Providers Care Trading Manager Name Role Phone Osbaldo Dewitt NP Primary Care Provider Encounter Details Date Type [...] place to sleep or slept in a half-way (including now)? 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
--- OUTSIDE RECORDS SUMMARY | 2024-10-22 01:04 | XMS_ITS | Encounter Summary ---
Author Organization [facility] Address [address] [place] [address] Care Team Providers Care New Accounts Clerk Name Role Phone Osbaldo Dewitt NP Primary Care Provider [phone] Reason for Visit * Reason Onset Date Comments Medications Refill 05/27/2024 Encounter Details Date Type Department Care Team (Late st Contact Info) Description 05/27/2024 Refill [facility] Family Medicine [facility] [address] [place] [address] Osbaldo Dewitt NP [address] [place] [address] Medications Refill Social History Tobacco [...] place to sleep or slept in a longterm (including now)? 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
--- OUTSIDE RECORDS SUMMARY | 2024-10-22 01:04 | XMS_ITS | Encounter Summary ---
Author Organization [facility] Address [address] [place] [address] Care Team Providers Care Fundraising Sale Representative Name Role Phone Osbaldo Dewitt NP Primary Care Provider [phone] Unavailable [phone] Reason for Visit * Reason Comments Medications Refill Encounter Details Date Type Department Care Team (Late st Contact Info) Description 02/03/[address] [facility] [address] [place], [place] [phone] Osbaldo Dewitt NP [address] [place] [address] Medications Refill Social History Tobacco [...] place to sleep or slept in a [facility] (including now)? 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 Not on tone e documented as of this encounter Ordered Prescriptions Prescription Sig Dispense Quantity Refills Last Filled Start Date End Date hydroCHLOROthiazid e (HYDRODIURIL) 25 mg tablet TAKE ONE TABLET BY MOUTH ONCE DAILY 90 Tablet 02/03/2023 04/28/2023 documented in this encounter Plan of Treatment Upcoming Encounters Date Type Department Care Team ([facility] Contact Info) Description 11/11/2024 15:30 EST Office Visit [facility] Medicine [address] [phone] Osbaldo Dewitt NP [address] [place] [address] documented as of this encounter Visit Diagnoses Not on filedocumented in this encounter Discontinued Medications Medication Sig Discontinue Reason Start Date End Da te hydroCHLOROthiazide (HYDRODIURIL) 25 mg tablet Take 1 Tablet by mouth daily. 10/28/2022 02/03/2023 documented as of this encounter Care Teams Fundraising Sale Representative Relationship Specialty Start Date End Date Osbaldo Dewitt GUEST SERVICE MANAGER [address] [place] [address] [phone] PCP - General 09/01/[address] [place] [address] [phone] Registered Dietitian Clinical Nutrition 10/21/23 documented as of this encounter
--- OUTSIDE RECORDS SUMMARY | 2024-10-22 01:04 | XMS_ITS | Encounter Summary ---
Author Organization [facility] Address [address] [place] [address] Care Team Providers Care Truckload Checker Name Role Phone Osbaldo Dewitt NP Primary Care Provider [phone] Reason for Visit * Reason Onset Date Comments Referral Request 12/17/2022 Encounter Details Date Type Department Care Team (Late st Contact Info) Description 12/17/2022 Telephone 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 [address] [place] [address] Osbaldo Dewitt NP [address] [place] [address] documented as of this encounter Visit Diagnoses Not on filedocumented in this encounter Care Teams Truckload Checker Relationship Specialty Start Date End Date Osbaldo Dewitt NP [address] [place] [address] PCP - General 09/01/19 documented as of this encounter
--- OUTSIDE RECORDS SUMMARY | 2024-10-22 01:04 | XMS_ITS | Encounter Summary ---
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 Not [...] Info) Description 11/11/2024 15:30 EST Office Visit [facility] [address] [phone] Osbaldo Dewitt NP [address] [place] [address] [phone] documented as of this encounter Visit Diagnoses Diagnosis Gastroesophageal reflux disease- Primary Esophageal reflux documented in this encounter Discontinued Medications Medication Sig Discontinue Reason Start Date End Da te omeprazole (PRILOSEC) 20 mg capsuleIndications:Gastr oesophageal reflux disease TAKE ONE CAPSULE BY MOUTH AT BEDTIME 10/25/2022 04/21/2023 documented as of this encounter Care Teams Public Records Researcher Relationship Specialty Start Date End Date Osbaldo Dewitt NP [address] [place] [address] [phone] PCP - General 09/01/19 documented as of this encounter
--- OUTSIDE RECORDS SUMMARY | 2024-10-22 01:04 | XMS_ITS | Encounter Summary ---
Author Organization [facility] Address [address] [place] [address] Care Team Providers Care Flame Cutting Machine Operator Name Role Phone Osbaldo Dewitt NP Primary Care Provider [phone] Unavailable [phone] Reason for Visit * Reason Comments Medications Refill Encounter Details Date Type Department Care Team (Late st Contact Info) Description 03/05/[address] [facility] Family Medicine [facility] [address] [place], [place] [phone] Osbaldo Dewitt NP [address] [place] [address] Medications Refill Social History Tobacco [...] place to sleep or slept in a usp (including now)? 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 Contact Info) Description 11/11/2024 15:30 EST Office Visit [facility] Family Medicine [address] [phone] Osbaldo Dewitt, DOCUMENTATION SPEC [address] [place] [address] documented as of this encounter Visit Diagnoses Not on filedocumented in this encounter Discontinued Medications Medication Sig Discontinue Reason Start Date End Da te atenoloL (TENORMIN) 25 mg tablet Take 1 Tablet by mouth daily. Reorder 11/18/2022 03/05/2023 documented as of this encounter Care Teams Flame Cutting Machine Operator Relationship Specialty Start Date End Date Osbaldo Dewitt, DOCUMENTATION SPEC [address] [place] [address] PCP - General 09/01/[address] [place] [address] [phone] Registered Dietitian Clinical Nutrition 10/21/23 documented as of this encounter
--- OUTSIDE RECORDS SUMMARY | 2024-10-22 01:04 | XMS_ITS | Encounter Summary ---
Author Organization [facility] Address [address] [place] [address] Care Team Providers Care Resource Director Name Role Phone Osbaldo Dewitt NP Primary Care Provider [phone] Unavailable [phone] Reason for Visit * Reason Comments Medications Refill Encounter Details Date Type Department Care Team (Late st Contact Info) Description 12/27/2022 Refill [facility] [address] [place], [place] [phone] Osbaldo Dewitt NP [address] [place] [address] Medications Refill Social History Tobacco [...] place to sleep or slept in a fci (including now)? 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 [...] Upcoming Encounters Date Type Department Care Team ([facility] st Contact Info) Description 11/11/2024 15:30 EST Office Visit [facility] Family Medicine [address] [phone] Osbaldo Dewitt NP [address] [place] [address] [phone] documented as of this encounter Visit Diagnoses Diagnosis Rosacea documented in this encounter Discontinued Medications Medication Sig Discontinue Reason Start Date End Da te doxycycline (PERIOSTAT) 20 mg tabletIndications:Rosace a TAKE TWO TABLETS BY MOUTH EVERY DAY 12/24/2021 12/30/2022 documented as of this encounter Care Teams Resource Director Relationship Specialty Start Date End Date Osbaldo Dewitt NP [address] [place] [address] [phone] PCP - General 09/01/[address] [place] [address] [phone] Registered Dietitian Clinical Nutrition 10/21/23 documented as of this encounter
--- OUTSIDE RECORDS SUMMARY | 2024-10-22 01:04 | XMS_ITS | Encounter Summary ---
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 06/24/2023 08/11/2023 documented as of this encounter Care Teams Hand Fur Cleaner Relationship Specialty Start Date End Date Osbaldo Dewitt NP [address] [place] [address] [phone] PCP - General 09/01/19 documented as of this encounter
--- OUTSIDE RECORDS SUMMARY | 2024-10-22 01:04 | XMS_ITS | Encounter Summary ---
Author Organization [facility] Address [address] [place] [address] Care Team Providers Care Fish Net Stringer Name Role Phone Osbaldo Dewitt NP Primary Care Provider [phone] Reason for Referral * Radiology Services (Routine/Next Available) - Specialty Report Received Specialty Diagnoses / Procedures Referred By Chance le Referred To Contact Diagnoses Menopausal and postmenopausal disorder Procedures DXA BONE DENSITY Osbaldo Dewitt NP [address] [place] [address] Phone: tel: fax: Referral ID Status Reason Start Date Expiration Date V isits Requested Visits Authorized [id number] Specialty Report Received 09/07/2024 1 1 * Radiology Services (Routine/Next Available) - Specialty Report Received Specialty Diagnoses / Procedures Referred By Chance le Referred To Contact Diagnoses Encounter for screening mammogram for malignant neoplasm of breast Procedures MA BREAST SCREENING JULIAN BILATERAL Osbaldo Dewitt NP [address] [place] [address] Phone: tel: fax: Referral ID Status Reason Start Date Expiration Date V isits Requested Visits Authorized [id number] Specialty Report Received 09/07/2024 1 1 * Laboratory Services (Routine/Next Available) - New Request Specialty Diagnoses / Procedures Referred By Chance le Referred To Contact Diagnoses Class 2 obesity due to excess calories without serious comorbidity with body mass index (BMI) of 35.0 to 35.9 in adult Procedures HEMOGLOBIN A1C Osbaldo Dewitt NP [address] [place] [address] Phone: tel: fax: Referral ID Status Reason Start Date Expiration Date V isits Requested Visits Authorized [id number] New Request 09/07/2024 1 1 * Laboratory Services (Routine/Next Available) - New Request Specialty Diagnoses / Procedures Referred By Chance le Referred To Contact Diagnoses Encounter for annual physical exam Procedures COMPREHENSIVE METABOLIC PANEL (CMP) Osbaldo Dewitt NP [address] [place] [address] Phone: tel: fax: Referral ID Status Reason Start Date Expiration Date V isits Requested Visits Authorized [id number] New Request 09/07/2024 1 1 * Laboratory Services (Routine/Next Available) - New Request Specialty Diagnoses / Procedures Referred By Chance le Referred To Contact Diagnoses Encounter for annual physical exam Procedures LIPID PROFILE (INCLUDES CHOLESTEROL, TRIGLYCERIDES, HDL, LDL) Osbaldo Dewitt NP [address] [place] [address] Phone: tel: fax: Referral ID Status Reason Start Date Expiration Date V isits Requested Visits Authorized [id number] New Request 09/07/2024 1 1 Reason for Visit * Reason Comments Annual Exam Encounter Details Date Type Department Care Team (Latest Contact Info) Description 09/07/2024 10:45 EST Office Visit [facility] Family Medicine [facility] [address] [place] [address] Osbaldo Dewitt NP [address] [place], [place] [phone] Encounter for annual physical exam (Primary Dx); Need for vaccination; Encounter for screening mammogram for malignant neoplasm of breast; Menopausal and postmenopausal disorder; Cervical cancer screening; Class 2 obesity due to excess calories without serious comorbidity with body mass index (BMI) of 35.0 to 35.9 in adult; Atrial fibrillation, unspecified type ([facility]); Anxiety Social History Tobacco Use Types Packs/Day Years Used Date Smoking Tobacco: Former Cigarettes 1977 Smokeless Tobacco: Never Alcohol Use Standard Drinks/Week Comments Not Currently 0 (1 standard drink = 0.6 oz pur e alcohol) 2/ [facility] [employer] Answer Date Recorded In the past 12 months has [employer], INTERNET BUSINESS TRADER, oil, or water [employer] threatened to shut off services in your [...] in a retirement (including now)? No 10/15/2023 [facility] - Inadequate Housing Answer Date Re corded What is your living situation today? I have a [facility] place to live 08/25/[address] you li ve. Do you have problems with any of the following? None of the above 08/25/2024 [facility] - Transportation Answer Date Record ed In the past 12 months, has l ack of reliable transportation kept you from medical appointments, meetings, work or from getting things needed for daily living? No 08/25/2024 [facility] - Personal Safety Answer Date Recor [...] scream or curse at you? Never 08/25/2024 [facility] - Financial Strain Answer Date Mango rded How hard is it for you to pa y for the very basics like food, housing, medical care, and heating? Would you say it is: Not hard at all 08/25/2024 [facility] - Employment Answer Date Recorded Do you want help finding or keeping work or a job? I do not need or want help 08/25/2024 [facility] - Social Connections Answer Date Re corded If for any reason you need h elp with day-to-day activities such as bathing, preparing meals, shopping, managing finances, etc., do you get the help you need? I don't need any help 08/25/2024 How often do you feel lonely or isolated from those around you? Rarely 08/25/2024 [facility] - Education Answer Date Recorded Do you speak a language other than Azeri at [facility]? No 08/25/2024 Do you want help with school or training? For example, starting or completing job training or getting a high school diploma, GED or equivalent. 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 [facility] Primary Care Preventive Service Visit Subjective: HPI: The 64 y.o. female presents for a routine check-up and exam. CONCERNS: Hypertension/A-fib Managed with diltiazem 240 mg daily, flecainide 100 mg twice daily and atenolol 25 mg QD. Medication adherence is good. Denies chest pain, shortness of breath, new onset edema. Sees cardiology at [facility]. Labs [facility] 10/11/22 Cholesterol Total: 219 LDL: 118 HDL: [...] Cannot find a previous total cholesterol lab CLINICAL NURSING INSTRUCTOR No LMP recorded. Patient is postmenopausal. Last [...] CAM (obstructive sleep apnea) 09/07/2024 Atrial fibrillation ([facility]) 11/11/2023 Glenohumeral arthritis, left 03/11/2023 Anxiety 11/09/2019 [...] Left 2023 GASTRIC FUNDOPLICATION 2008 Ramy-fundoplication at [facility] SHOULDER SURGERY Right 12/2023 Dr. Colby - [facility] Family History Problem Relation Age of Onset [...] BY MOUTH AT BEDTIME 90 Capsule 3 [id number]-CAPRYL ORAL Take by mouth. No current facility-administered [...] HEMOGLOBIN A1C; Future Atrial fibrillation, unspecified type ([facility]) - flecainide (TAMBOCOR) 100 mg tablet; Take [...] Info) Description 11/11/2024 15:30 EST Office Visit [facility] Family Medicine [address] [address] Osbaldo Dewitt NP [address] [place] [phone] Scheduled Orders Name Type Priority Associated Diagnoses [...] type 16, PCR Negative Negative 09/14/2024 14:06 [facility] HPV High Risk type 18, PCR Negative Negative 09/14/2024 14:06 [facility] HPV other High Risk types, PCR Negative Negative 09/14/2024 14:06 [facility] Comment: The following Other High Risk HPV types were not detected: ??31,33, 35, 39, 45, 51, 52, 56, 58, 59, 66 and 68. Pap Test CERVIX UTERI STRUCTURE / Unknown 09/07/2024 11:43 EST 09/13/2024 10:39 EST us Osbaldo Dewitt NP MICROBIOLOGY - GENERAL ORDERAB LES Final Result [facility] [address] [place] [address] * PAP TEST (09/07/2024 11:43 EST) Specimens A. Cervix and/or Endocervix , ThinPrep Imaging System with Manual Evaluation 09/14/2024 14:06 [facility] Specimen Adequacy Satisfactory for Evaluation - assessment of transformation zone component not applicable ( e.g. atrophy, vaginal sample, hysterectomy) 09/14/2024 14:06 [facility] General Categorization Negative for intraepithelial lesion or malignancy 09/14/2024 14:06 [facility] Attestation . 09/14/2024 14:06 [facility] at 1406 Clinical History Screening cervical cancer 09/14/2024 14:06 [facility] Performing Lab [facility] 09/14/2024 14:06 [facility] Scanned Images 09/14/2024 14:06 [facility] HPV High Risk type 16, PCR Negative 09/14/2024 14:06 [facility] HPV High Risk type 18, PCR Negative 09/14/2024 14:06 [facility] HPV Other High Risk Types, PCR Negative The following Other High Risk HPV types were not detected: 31,33, 35, 39, 45, 51, 52, 56, 58, 59, 66 and 68. 09/14/2024 14:06 [facility] Pap Test CERVIX UTERI STRUCTURE / Unknown 09/07/2024 11:43 EST 09/07/2024 11:43 EST us Osbaldo Dewitt NP PATHOLOGY ORDERABLES Final Res ult Performing Organization Address City/State/[facility] Co de Phone Number [facility] [address] [place], [place] [phone] documented in this encounter Visit Diagnoses Diagnosis [...] 35.9 in adult Atrial fibrillation, unspecified type ([facility]) Anxiety Anxiety state, unspecified documented in this [...] 09/07/2024 documented in this encounter Care Teams Fish Net Stringer Relationship Specialty Start Date End Date Osbaldo Dewitt NP [address] [place] [address] PCP - General 09/01/19 documented as of this encounter
--- OUTSIDE RECORDS SUMMARY | 2024-10-22 01:04 | XMS_ITS | Encounter Summary ---
Author Organization [facility] Address [address] [place] [address] Care Team Providers Care Senior Private Client Advisor Name Role Phone Osbaldo Dewitt NP Primary Care Provider [phone] Reason for Referral * PT/OT/ST (Routine/Next Available) - Closed Specialty Diagnoses / Procedures [facility] Referred To Contact Diagnoses Chronic left-sided low back pain without sciatica Osbaldo Dewitt NP Phone: tel: fax: Referral ID Status Reason Start Date Expiration Date V isits Requested Visits Authorized [id number] Closed Specialty Services Required 11/11/2023 1 1 Question Answer Reason for Request: left sided low back pain SITE [facility] Reason for Visit * Reason Comments Pre-op Exam Encounter Details Date Type Department Care Team (Late st Contact Info) Description 11/11/2023 11:30 EST Office Visit 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 [facility] Primary Care Preoperative Evaluation Patient ID: Sandie Manriquez is a 63 y.o. female Date of Service: 11/11/2023 Reason for Visit: Preop Subjective: History: Right shoulder pain for 4 years, has tried PT, ice/heat, injections x 3 without full benefit. Continues to have chronic pain, difficulty sleeping, diminished ROM Procedure: R total shoulder replacement Surgeon: Christine Colby MD - [facility] Date: 12/09/23 Relevant: [...] suprainguinal vascular surgery): no History of ischemic [place] or a positive exercise test, current complaint [...] AT BEDTIME, Disp: 90 Capsule, Rfl: 3 [id number]-CAPRYL ORAL, Take by mouth., Disp: , Rfl: [...] Cronin esophagus Glenohumeral arthritis, left Atrial fibrillation ([facility]) Past Medical History: Diagnosis Date GERD (gastroesophageal reflux disease) Ramy Fundoplication Past Surgical History: Procedure Laterality Date CARPAL TUNNEL RELEASE Right 2003 GASTRIC FUNDOPLICATION 2009 Ramy-fundoplication at [facility] Family History Problem [...] (e.g., BA, AB, BS) 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 Integrative Family Medicine [address] [address] Osbaldo Dewitt NP [address] [place] [phone] Scheduled Referrals Name Type Priority Associated Diagnoses [...] as of this encounter Care Teams Senior Private Client Advisor Relationship Specialty Start Date End Date Osbaldo Dewitt NP [address] [place] [phone] PCP - General 09/01/19 documented as of this encounter
--- OUTSIDE RECORDS SUMMARY | 2024-10-22 01:04 | XMS_ITS | Encounter Summary ---
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 Integrative Family Medicine [address] [address] Osbaldo Dewitt NP [address] [place] [address] documented as of this encounter Visit Diagnoses Not on filedocumented in this encounter Care Teams Mid Level Provider Relationship Specialty Start Date End Date Osbaldo Dewitt NP [address] [place] [address] PCP - General 09/01/19 documented as of this encounter
--- OUTSIDE RECORDS SUMMARY | 2024-10-22 01:04 | XMS_ITS | Encounter Summary ---
Author Organization [facility] Address [address] [place] [address] Care Team Providers Care Fire Hydrant Operator Name Role Phone Osbaldo Dewitt NP Primary Care Provider [phone] Reason for Visit * Reason Comments Medications Refill Encounter Details Date Type Department Care Team (Late st Contact Info) Description 12/16/[address] 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 Not on [...] Info) Description 11/11/2024 15:30 EST Office Visit [facility] Integr[facility] Family Medicine [address] [address] Osbaldo Dewitt NP [address] [place], [place] [phone] documented as of this encounter Visit Diagnoses Diagnosis Primary hypertension- Primary Unspecified essential hypertension documented in this encounter Discontinued Medications Medication Sig Discontinue Reason Start Date End Da te losartan (COZAAR) 100 mg tabletIndications:Primary hypertension TAKE ONE TABLET BY MOUTH EVERY DAY 09/05/2022 12/17/2022 documented as of this encounter Care Teams Fire Hydrant Operator Relationship Specialty Start Date End Date Osbaldo Dewitt NP [address] [place] [address] PCP - General 09/01/19 documented as of this encounter
--- OUTSIDE RECORDS SUMMARY | 2024-10-22 01:04 | XMS_ITS | Encounter Summary ---
Author Organization [facility] Address [address] [place] [address] Care Team Providers Care Transportation Sales Consultant Name Role Phone Osbaldo Dewitt NP Primary Care Provider Reason for Visit * Reason Comments Medications Refill Encounter Details Date Type Department Care Team (Late st Contact Info) Description 05/20/2023 Refill [facility] Integrative Family Medicine [facility] [address] [place] [address] Osbaldo Dewitt NP [address] [place] [address] Medications Refill Social History Tobacco [...] No 11/11/2022 Housing Stability Vital Sign Answer Uhssain e Recorded In the last 12 months, [...] 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 Not on file Not [...] 15:30 EST Office Visit [facility] Family Medicine [address] [phone] Osbaldo Dewitt NP [address] [place] [phone] documented as of this encounter Visit Diagnoses Not on filedocumented in this encounter Discontinued Medications Medication Sig Discontinue Reason Start Date End Da te atenoloL (TENORMIN) 25 mg tablet TAKE 1 TABLET BY MOUTH ONCE DAILY 03/05/2023 05/21/2023 documented as of this encounter Care Teams Transportation Sales Consultant Relationship Specialty Start Date End Date Osbaldo Dewitt NP [address] [place] [address] PCP - General 09/01/19 documented as of this encounter
--- OUTSIDE RECORDS SUMMARY | 2024-10-22 01:04 | XMS_ITS | Encounter Summary ---
Author Organization [facility] Address [address] [place] [address] Care Team Providers Care Director Process Engineering Name Role Phone Osbaldo Dewitt NP Primary Care Provider [phone] Reason for Visit * Reason Comments Medications Refill Encounter Details Date Type Department Care Team (Late st Contact Info) Description 04/25/2023 Refill [facility] Medicine [facility] [address] [place] [address] Osbaldo Dewitt NP [address] [place] [address] Medications Refill Social History Tobacco [...] 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 Not [...] Info) Description 11/11/2024 15:30 EST Office Visit [facility] [address] [phone] Osbaldo Dewitt NP [address] [place] [phone] documented as of this encounter Visit Diagnoses Not on filedocumented in this encounter Discontinued Medications Medication Sig Discontinue Reason Start Date End Da te hydroCHLOROthiazide (HYDRODIURIL) 25 mg tablet TAKE ONE TABLET BY MOUTH ONCE DAILY 02/03/2023 04/28/2023 documented as of this encounter Care Teams Director Process Engineering Relationship Specialty Start Date End Date Osbaldo Dewitt NP [address] [place] [phone] PCP - General 09/01/19 documented as of this encounter
--- OUTSIDE RECORDS SUMMARY | 2024-10-22 01:04 | XMS_ITS | Encounter Summary ---
Author Organization [facility] Address [address] [place] [address] Care Team Providers Care Fuel Cell Technician Name Role Phone Osbaldo Dewitt NP Primary Care Provider [phone] Reason for Visit * Reason Onset Date Comments Medications Refill 06/24/2023 Encounter Details Date Type Department Care Team (Late st Contact Info) Description 06/24/[address] 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 Integrative Family Medicine [address] [address] Osbaldo Dewitt NP [address] [place] [phone] documented as of this encounter Visit Diagnoses Not on filedocumented in this encounter Discontinued Medications Medication Sig Discontinue Reason Start Date End Da te clobetasoL (TEMOVATE) 0.05 % ointment Apply topically 2 times daily as needed for Other. Reorder 01/29/2022 06/24/2023 documented as of this encounter Care Teams Fuel Cell Technician Relationship Specialty Start Date End Date Osbaldo Dewitt NP [address] [place] [phone] PCP - General 09/01/19 documented as of this encounter
--- OUTSIDE RECORDS SUMMARY | 2024-10-22 01:04 | XMS_ITS | Encounter Summary ---
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
--- OUTSIDE RECORDS SUMMARY | 2024-10-22 01:04 | XMS_ITS | Encounter Summary ---
Author Organization [facility] Address [address] [place] [address] Care Team Providers Care Creative Services Manager Name Role Phone Osbaldo Dewitt NP Primary Care Provider [phone] Reason for Visit * Reason Comments Pre-op Exam Encounter Details Date Type Department Care Team (Latest Contact Info) Description 02/20/2023 11:15 EDT Office Visit [facility] Integrative Family Medicine [facility] [address] [place] [address] Osbaldo Dewitt NP [address] [place] [address] Primary osteoarthritis of left shoulder [...] slept in a intermediate (including now)? 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 [facility] [place] Pre[place] Evaluation Patient ID: Sandie Manriquez is a 62 y.o. female Date of Service: 02/20/2023 Reason for Visit: Pre-op Exam Subjective: History: Left shoulder pain for several years, history of osteoarthritis and partial rotator cuff tear, status post injections with waning benefit. Procedure: L shoulder replacement Surgeon: Dr Lori Colby at [facility] [place] Date: 03/11/2023 Relevant HX: Hypertension, hyperlipidemia, Cronin's [...] suprainguinal vascular surgery): no History of ischemic [place] or a positive exercise test, current complaint [...] BEDTIME, Disp: 90 Capsule, Rfl: 1 ??? [id number]-[id number]-CAPRYL ORAL, Take by mouth., Disp: , Rfl: [...] 2002 ??? GASTRIC FUNDOPLICATION 2009 Ramy-fundoplication at [facility] [place] Family History Problem Relation Age of Onset [...] BA, AB, BS) Occupational History ??? 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 Smoking status: Former Years: [...] Info) Description 11/11/2024 15:30 EST Office Visit [facility] [address], [place] [id number] Osbaldo Dewitt NP [address] [place] [address] documented as of this encounter Procedures Procedure Name Priority Date/Time Associated Diagnosis Comments POCT HEMOGLOBIN A1C Routine 02/20/2023 Pre-op evaluation Elevated fasting glucose documented in this encounter Results * POCT HEMOGLOBIN A1C (02/20/2023) Hemoglobin A1c, POC 5.6 <=5.7 % [facility] POINT OF CARE Blood CAPILLARY BLOOD / Unknown 02/20/2023 us Osbaldo Dewitt NP POINT OF CARE TEST ORDERABLES Final Result [facility] POINT OF CARE documented in this encounter Visit Diagnoses Diagnosis Primary osteoarthritis of left shoulder- Primary Primary localized osteoarthrosis, shoulder region Pre-op evaluation Preoperative examination, unspecified Elevated fasting glucose Impaired fasting glucose documented in this encounter Historical Medications * This list may reflect changes made after this encounter. [id number] -OREG-CAPRYL ORAL Take by mouth. added in this encounter Care Teams Creative Services Manager Relationship Specialty Start Date End Date Osbaldo Dewitt NP [address] [place] [address] PCP - General 09/01/19 documented as of this encounter
--- OUTSIDE RECORDS SUMMARY | 2024-10-22 01:04 | XMS_ITS | Encounter Summary ---
Author Organization [facility] Address [address] [place] [address] Care Team Providers Care Bench Worker Hollow Handle Name Role Phone Osbaldo Dewitt NP Primary Care Provider [phone] Reason for Visit * Reason Onset Date Comments Medications Refill 10/27/2023 Encounter Details Date Type Department Care Team (Late st Contact Info) Description 10/27/2023 Refill [facility] Integrative Family Medicine [facility] [address] [place] [address] Osbaldo Dewitt NP [address] [place] [address] Medications Refill Social History Tobacco [...] a group home (including now)? 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
--- OUTSIDE RECORDS SUMMARY | 2024-10-22 01:04 | XMS_ITS | Encounter Summary ---
Author Organization [facility] Address [address] [place] [address] Care Team Providers Care Wellness Educator Name Role Phone Osbaldo Dewitt NP Primary Care Provider Andrey Johnson RD Unavailable [phone] Reason for Visit * Reason Onset Date Comments Other 02/13/2023 Encounter Details Date Type Department Care Team (Late st Contact Info) Description 02/13/2023 Telephone [facility] [place] [facility] [address] [place] [address] Osbaldo Dewitt NP [address] [place] [address] Other Social History Tobacco Use [...] place to sleep or slept in a jail (including now)? 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
--- OUTSIDE RECORDS SUMMARY | 2024-10-22 01:04 | XMS_ITS | Encounter Summary ---
Author Organization [facility] Address [address] [place] [address] Care Team Providers Care Sock Lining Stitcher Name Role Phone Osbaldo Dewitt NP Primary Care Provider [phone] Reason for Referral * Consult (Routine/Next Available) - Specialty Report Received Specialty Diagnoses / Procedures Referred By Chance le Referred To Contact Diagnoses Class 1 obesity due to excess calories with serious comorbidity and body mass index (BMI) of 34.0 to 34.9 in adult Osbaldo Dewitt NP Phone: tel: fax: [facility] [address] [address] Phone: tel: fax: Referral ID Status Reason Start Date Expiration Date Visits Requested Visits Authorized [id number] Specialty Report Received Specialty Services Required 3 1 1 Question Answer Nutrition/certified adapted physical educator/Education: Nutrition, Wellness coaching, Weight loss Reason for Visit * Reason Comments Follow-up ed Encounter Details Date Type Department Care Team (Latest Contact Info) Description 09/16/2023 10:00 EST Office Visit [facility] [address] [place] [address] Osbaldo Dewitt, CUBE MACHINE TENDER [address] [place] [address] Atrial fibrillation, unspecified type (HCC-CMS) [...] 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 [facility] [place] Subjective: Chief Complaint(s): Follow-up (ed) HPI: Pat presents today for TCM follow-up new onset A-fib with RVR after hospitalization at [facility] from 09/05/2023- 09/06/23. She presented with complaints of palpitations, shortness of breath and diaphoresis. Seen initially at urgent care and referred to [facility] with A-fib with a heart rate of [...] 2023. Cardiology follow up next week in [place]. Patient was recently discharged from [facility] on 09/06/23. Patient was contacted yes. ASCVD [...] BY MOUTH AT BEDTIME 90 Capsule 3 [id number]-OREG-CAPRYL ORAL Take by mouth. venlafaxine (EFFEXOR-XR) 37.5 [...] for this visit: Atrial fibrillation, unspecified type ([facility]) Comments: Regular rhythm today. Reviewed all outside labs, imaging and notes. Plan to continue diltiazem 180mg daily and Eliquis and f/u with cardiology as scheduled Orders: - MAGNESIUM - COMPREHENSIVE METABOLIC PANEL (CMP) Class 1 obesity due to excess calories with serious comorbidity and body mass index (BMI) of 34.0 to 34.9 in adult - AMB CONS/FOLLOW UP BAR BACK, ELECTRIC CONTAINER TESTER AND NUTRITION; Future Alcohol use disorder Comments: Reviewed ETOH use recommendations, declines reduction support. Reviewed benefits of cessation/reducation. Pure hypercholesterolemia Comments: Reviewed labs completed at [facility]. ASCVD risk score 5.6%. Continue lifestyle interventions. [...] 11/11/2024 15:30 EST Office Visit [facility] [address] [phone] Osbaldo Dewitt NP [address] [place] [address] Scheduled Referrals Name Type Priority Associated Diagnoses Order Schedule AMB CONS/FOLLOW UP BAR BACK, ELECTRIC CONTAINER TESTER AND NUTRITION Outpatient Referral Routine/Next Available Class [...] 138 136 - 145 mmol/L 09/17/2023 19:00 [facility] Potassium 4.0 3.5 - 5.0 mmol/L 09/17/2023 19:00 [facility] Chloride 101 96 - 110 mmol/L 09/17/2023 19:00 [facility] CO2 Total 28 22 - 32 mmol/L 09/17/2023 19:00 [facility] Glucose 96 70 - 99 mg/dl 09/17/2023 19:00 [facility] BUN 14 10 - 26 mg/dL 09/17/2023 19:00 [facility] Creatinine 0.56 0.52 - 1.04 mg/dL 09/17/2023 19:00 [facility] eGFR 102 >60 mL/min/1.7 3m2 09/17/2023 19:00 [facility] Total Protein 7.6 6.3 - 8.2 g/dL 09/17/2023 19:00 [facility] Albumin 4.4 3.4 - 4.9 g/dL 09/17/2023 19:00 [facility] Alkaline Phosphatase 58 38 - 126 U/L 09/17/2023 19:00 [facility] AST 31 15 - 46 U/L 09/17/2023 19:00 [facility] ALT 24 <35 U/L 09/17/2023 19:00 [facility] Bilirubin, Total <0.5 <1.4 mg/dL 09/17/20 19:00 [facility] Calcium 9.9 8.5 - 10.5 mg/dL 09/17/2023 19:00 [facility] Albumin/Globulin Ratio 1.4 1.0 - 2.5 g/dL 09/17/2023 19:00 [facility] Anion Gap 9 5 - 14 mmol/L 09/17/2023 19:00 [facility] Blood VENOUS BLOOD / Unknown Venipuncture / Unknown 09/16/2023 10:48 EST 09/16/2023 10:48 EST us Osbaldo Dewitt CUBE MACHINE TENDER CHEMISTRY & BLOOD GAS ORDERABL ES Final Result Performing Organization Address [facility] Co de Phone Number [facility] [address] [place] [address] * MAGNESIUM (09/16/2023 10:48 EST) Magnesium 1.8 1.7 - 2.8 mg/dL 09/17/2023 19:00 [facility] Blood VENOUS BLOOD / Unknown Venipuncture / Unknown 09/16/2023 10:48 EST 09/16/2023 10:48 EST us Osbaldo Dewitt CUBE MACHINE TENDER CHEMISTRY & BLOOD GAS ORDERABL ES Final Result Performing Organization Address [facility] Co de Phone Number [facility] [address] [place] [address] documented in this encounter Visit Diagnoses Diagnosis Atrial fibrillation, unspecified type ([facility])- Primary Class 1 obesity due to excess calories with serious comorbidity and body mass index (BMI) of 34.0 to 34.9 in adult Alcohol use disorder Pure hypercholesterolemia documented in this encounter Care Teams Sock Lining Stitcher Relationship Specialty Start Date End Date Osbaldo Dewitt NP [address] [place] [address] PCP - General 09/01/19 documented as of this encounter
--- OUTSIDE RECORDS SUMMARY | 2024-10-22 01:04 | XMS_ITS | Encounter Summary ---
Author Organization [facility] Address [address] [place] [address] Care Team Providers Care Information Delivery Analyst Name Role Phone Osbaldo Dewitt NP Primary Care Provider [phone] Encounter Details Date Type Department Care Team [...] slept in a longterm (including now)? 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
--- OUTSIDE RECORDS SUMMARY | 2024-10-22 01:04 | XMS_ITS | Encounter Summary ---
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
--- OUTSIDE RECORDS SUMMARY | 2024-10-22 01:04 | XMS_ITS | Encounter Summary ---
Author Organization [facility] Address [address] [place] [address] Care Team Providers Care Housekeeping And Laundry Team Leader Name Role Phone Osbaldo Dewitt NP Primary Care Provider [phone] Reason for Referral * Consult (Routine/Next Available) - Authorization Not Required Specialty Diagnoses / Procedures Referred By [facility] Referred To Contact Diagnoses Atrial fibrillation, unspecified type ([facility]) Osbaldo Dewitt NP [address] [place] [address] Phone: tel: fax: Referral ID Status Reason Start Date Expiration Date Visits Requested Visits Authorized [id number] Authorization Not Required Patient Preference 4 1 1 Question Answer Please choose one of the following condition categories: Other Clinical Question Scheduling Comments (optional ? describe specific scheduling needs if applicable): Abbie Espinoza Reason for Request: Patient preference SITE [facility] ([facility]) Encounter Details Date Type Department Care Team (Late st Contact Info) Description 05/27/[address] 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 documented in this encounter Plan of Treatment Upcoming Encounters Date Type Department Care Team (Late st Contact Info) Description 11/11/2024 15:[address] [facility] Integrative Family Medicine [place] [phone] Osbaldo Dewitt NP [address] [place], [place] [phone] Scheduled Referrals Name Type Priority Associated Diagnoses Order Schedule AMB CONS/FOLLOW UP CARDIOLOGY Outpatient Referral Routine/Next Available Atrial fibrillation, unspecified type (HCC-CMS) Expected: 06/10/2024 (Approximate), Expires: 05/27/2025 documented as of this encounter Visit Diagnoses Diagnosis Atrial fibrillation, unspecified type (HCC-CMS)- Primary documented in this encounter Care Teams Housekeeping And Laundry Team Leader Relationship Specialty Start Date End Date Osbaldo Dewitt NP [address] [place] [address] PCP - General 09/01/19 documented as of this encounter
--- OUTSIDE RECORDS SUMMARY | 2024-10-22 01:04 | XMS_ITS | Encounter Summary ---
Author Organization [facility] Address [address] [place] [address] Care Team Providers Care Outcome Analyst Name Role Phone Osbaldo Dewitt NP Primary Care Provider [phone] Reason for Referral * Consult (Urgent) - Specialty Report Received Specialty Diagnoses / Procedures Referred By [facility] Referred To Contact Diagnoses Atrial fibrillation, unspecified type ([facility]) Osbaldo Dewitt NP Phone: tel: fax: Referral ID Status Reason Start Date Expiration Date Visits Requested Visits Authorized [id number] Specialty Report Received Specialty Services Required 09/10/2023 1 1 Question Answer Outside [facility] Reason for Request: recently diagnosed with atrial fibrillation with RVR Reason for Visit * Reason Onset Date Comments Follow-up 09/08/2023 Coordination Of Care 09/08/2023 TCM Encounter Details Date Type Department Care Team ([facility] st Contact Info) Description 09/08/2023 Telephone [facility] [address] [place] [address] [address] Follow-up; Coordination Of Care (TCM) Social History [...] place to sleep or slept in a snf (including now)? 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 * Telephone Encounter - Ruthann De Oliveira RN - 09/08/2023 1159 EST Follow up message sent to patient * Telephone Encounter - Malathi Juan - 09/08/2023 1058 EST Patient calls in for a follow up appointment from an Ed to hospital admission at [facility] for cardiac event. Patient scheduled with pcp on 09/16 documented in this encounter Plan of Treatment Upcoming Encounters Date Type Department Care Team (Late st Contact Info) Description 11/11/2024 15:30 EST Office Visit [facility] [address] [address] Osbaldo Dewitt NP [address] [place] [address] Scheduled Referrals Name Type Priority [...] 09/18/2023 added in this encounter Care Teams Outcome Analyst Relationship Specialty Start Date End Date Osbaldo Dewitt NP [address] [place] [address] PCP - General 09/01/19 documented as of this encounter
--- OUTSIDE RECORDS SUMMARY | 2024-10-22 01:04 | XMS_ITS | Encounter Summary ---
Author Organization [facility] Address [address] [place] [address] Care Team Providers Care Bill Poster Installer Name Role Phone Osbaldo Dewitt NP Primary Care Provider [phone] Reason for Visit * Reason Onset Date Comments Results 12/19/2022 Encounter Details Date Type Department Care Team (Late st Contact Info) Description 12/19/2022 Telephone [facility] [place] [facility] Medicine [facility] [address] [place] [address] Osbaldo Dewitt NP [address] [place] [address] Results Social History Tobacco Use [...] 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 Please push XRs to [facility]. * Telephone Encounter - Osbaldo Dewitt NP [...] Info) Description 11/11/2024 15:30 EST Office Visit [facility] Integrative Family Medicine [address] [address] Osbaldo Dewitt NP [address] [place] [address] documented as of this encounter Visit Diagnoses Not on filedocumented in this encounter Care Teams Bill Poster Installer Relationship Specialty Start Date End Date Osbaldo Dewitt NP [address] [place] [address] PCP - General 09/01/19 documented as of this encounter
--- OUTSIDE RECORDS SUMMARY | 2024-10-22 01:04 | XMS_ITS | Encounter Summary ---
Author Organization [facility] Address [address] [place] [address] Care Team Providers Care Manager Practice Name Role Phone Osbaldo Dewitt NP Primary Care Provider [phone] Reason for Visit * Reason Comments Medications Refill Encounter Details Date Type Department Care Team (Late st Contact Info) Description 05/19/2024 Refill [facility] [place] [facility] [address] [place] [address] Osbaldo Dewitt NP [address] [place] [address] Medications Refill Social History Tobacco [...] in a custodial (including now)? 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 To front desk assistant - please contact patient and schedule PEX. * Telephone Encounter - Laurel Todd RN - 05/19/2024 1553 EDT Medication Requested: Venlafaxine 37.5 mg - 1 tab daily Last OV: 11/11/2023 - pre-op, 09/16/2023 for follow-up Next OV: Visit date not found Last Refill (If required): 01/19/2024 for #90 with 1 refill Pharmacy Of Choice: [facility] pharmacy To PCP - please advise on follow-up needed and refill. documented in this encounter Plan of Treatment Upcoming Encounters Date Type Department Care Team (Late st Contact Info) Description 11/11/2024 15:30 EST Office Visit [facility] Integrative Family Medicine [facility] [address] [place], [place] [phone] Osbaldo Dewitt NP [address] [place] [address] documented as of this encounter Visit Diagnoses Diagnosis Anxiety Anxiety state, unspecified Depression, unspecified depression type documented in this encounter Discontinued Medications Medication Sig Discontinue Reason Start Date End Da te venlafaxine (EFFEXOR-XR) 37.5 mg XR capsuleIndications:Anxie ty,Depression, unspecified depression type TAKE ONE CAPSULE BY MOUTH ONCE DAILY 01/19/2024 05/19/2024 documented as of this encounter Care Teams Manager Practice Relationship Specialty Start Date End Date Osbaldo Dewitt NP [address] [place] [address] PCP - General 09/01/19 documented as of this encounter
--- OUTSIDE RECORDS SUMMARY | 2024-10-22 01:04 | XMS_ITS | Encounter Summary ---
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 Reorder 12/07/2020 08/16/2024 clobetasoL (TEMOVATE) 0.05 % ointment APPLY TOPICALLY TWICE DAILY NEEDED Reorder 08/11/2023 08/16/2024 documented as of this encounter Care Teams Open Tenter Operator Relationship Specialty Start Date End Date Osbaldo Dewitt NP [address] [place] [address] PCP - General 09/01/19 documented as of this encounter
--- OUTSIDE RECORDS SUMMARY | 2024-10-22 01:04 | XMS_ITS | Encounter Summary ---
Author Organization [facility] Address [address] [place] [address] Care Team Providers Care Soft Top Installer Name Role Phone Osbaldo Dewitt NP Primary Care Provider [phone] Reason for Visit * Reason Comments Medications Refill Encounter Details Date Type Department Care Team (Late st Contact Info) Description 01/17/2024 Refill [facility] [address] [place] [address] Osbaldo Dewitt NP [address] [place] [address] Medications Refill Social History Tobacco [...] slept in a fpc (including now)? 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 [...] Labs (BMP/CMP/LIPID/TSH) : N/A Pharmacy Of Choice: [facility] documented in this encounter Plan of Treatment Upcoming Encounters Date Type Department Care Team (Late st Contact Info) Description 11/11/2024 15:30 EST Office Visit [facility] Integrative Family Medicine [address] [phone] Osbaldo Dewitt NP [address] [place] [phone] documented as of this encounter Visit Diagnoses Diagnosis Anxiety Anxiety state, unspecified Depression, unspecified depression type documented in this encounter Discontinued Medications Medication Sig Discontinue Reason Start Date End Da te venlafaxine (EFFEXOR-XR) 37.5 mg XR capsuleIndications:Anxie ty,Depression, unspecified depression type Take 1 capsule by mouth every day. 09/18/2023 01/19/2024 documented as of this encounter Care Teams Soft Top Installer Relationship Specialty Start Date End Date Osbaldo Dewitt NP [address] [place] [phone] PCP - General 09/01/19 documented as of this encounter
--- OUTSIDE RECORDS SUMMARY | 2024-10-22 01:04 | XMS_ITS | Encounter Summary ---
Author Organization [facility] Address [address] [place] [address] Care Team Providers Care Adult Basic Education Manager Name Role Phone Osbaldo Dewitt NP Primary Care Provider [phone] Reason for Referral * Consult (Routine/Next Available) - Closed Specialty Diagnoses / Procedures Referred By Chance le Referred To Contact Family Medicine Diagnoses Obesity (BMI 35.0-39.9 without comorbidity) Osbaldo Dewitt NP Phone: tel: fax: [facility] Integrative Family Medicine [address] [address] Phone: tel: fax: Referral ID Status Reason Start Date Expiration Date V isits Requested Visits Authorized [id number] Closed Specialty Services Required 11/18/2022 1 1 Question Answer Nutrition/medical educator/Education: Wellness coaching, Weight loss * PT/OT/ST (Routine/Next Available) - Closed Specialty Diagnoses / Procedures Referred By Chance le Referred To Contact Diagnoses Chronic pain of left knee Osbaldo Dewitt NP Phone: tel: fax: Referral ID Status Reason Start Date Expiration Date V isits Requested Visits Authorized [id number] Closed Specialty Services Required 11/18/2022 1 1 Question Answer Reason for Request: left knee pain SITE [facility] - [facility] * Consult (Routine/Next Available) - Closed Specialty Diagnoses / Procedures Referred By Contmorgan t Referred To Contact Diagnoses Chronic pain of left knee Chronic pain of both shoulders Osbaldo Dewitt NP Phone: tel: fax: [address] [place] [address] Phone: tel: Referral ID Status Reason Start Date Expiration Date V isits Requested Visits Authorized [id number] Closed Specialty Services Required 11/18/2022 1 1 Question Answer Reason for Request: left knee pain and bilateral shoulder knee pain SITE 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 Patient is postmenopausal. Last [...] Date ??? GASTRIC FUNDOPLICATION 2009 Ramy-fundoplication at [facility] Family History Problem Relation Age of Onset [...] 35.0-39.9 without comorbidity) - AMB CONS/FOLLOW UP BUSINESS CONTINUITY PLANNER, WALLET ASSEMBLER AND NUTRITION; Future Need for vaccination Comments: Risk/benefits of vaccination reviewed. Orders: - TDAP (BOOSTRIX) VACCINE =>7YO IM Other orders - atenoloL (TENORMIN) 25 mg tablet; Take 1 Tablet by mouth daily. Blood pressure and BMI goals reviewed. Immunizations reviewed, Tdap given. Fasting lipid and blood glucose reviewed. Mammogram screening ordered. Screening colonoscopy due 2025. DEXA due age 64. Pap/HPV screening due 7234-9612 Discussed safety prevention measures, healthy diet and exercise goals. Follow up: Return for hypertension. Osbaldo Dewitt NP Speech recognition software was used to complete this progress note. Typographical errors may be present. documented in this encounter Plan of Treatment Upcoming Encounters Date Type Department Care Team (Late st Contact Info) Description 11/11/2024 15:30 EST Office Visit [facility] Integrative Family Medicine [address] [phone] Osbaldo Dewitt NP [address] [place], [place] [address] Scheduled Referrals Name Type Priority Associated Diagnoses Order Schedule AMB CONS/FOLLOW UP ORTHOPEDICS - EXTERNAL Outpatient Referral Routine/Next Available Chronic pain of left knee Chronic pain of both shoulders Expected: 12/16/2022 (Approximate), Expires: 11/18/2023 AMB CONS/FOLLOW UP PHYSICAL THERAPY - OUTSIDE OF NETWORK Outpatient Referral Routine/Next Available Chronic pain of left knee Expected: 11/25/2022 (Approximate), Expires: 11/18/2023 AMB CONS/FOLLOW UP BUSINESS CONTINUITY PLANNER, WALLET ASSEMBLER AND NUTRITION Outpatient Referral Routine/Next Available Obesity [...] 23 documented in this encounter Care Teams Adult Basic Education Manager Relationship Specialty Start Date End Date Osbaldo Dewitt NP [address] [place] [phone] PCP - General 09/01/19 documented as of this encounter
--- OUTSIDE RECORDS SUMMARY | 2024-10-22 01:04 | XMS_ITS | Encounter Summary ---
Author Organization [facility] Address [address] [place] [address] Care Team Providers Care Associate Product Integrity Engineer Name Role Phone Osbaldo Dewitt NP Primary Care Provider Reason for Visit * Reason Comments Medications Refill Encounter Details Date Type Department Care Team (Late st Contact Info) Description 08/16/2024 Refill [facility] Integrative Family Medicine [facility] [address] [place] [address] Osbaldo Dewitt NP [address] [place] [address] Medications Refill Social History Tobacco [...] in a residential (including now)? 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 [...] 09/18/2023 Last Labs: 09/16/2023 Pharmacy Of Choice: [facility] documented in this encounter Plan of Treatment Upcoming Encounters Date Type Department Care Team (Late st Contact Info) Description 11/11/2024 15:30 EST Office Visit [facility] [place] [address] Osbaldo Dewitt NP [address] [place] [address] documented as of this encounter Visit Diagnoses [...] documented as of this encounter Care Teams Associate Product Integrity Engineer Relationship Specialty Start Date End Date Osbaldo Dewitt NP [address] [place] [address] [place] [address] PCP - General 09/01/19 documented as of this encounter
--- OUTSIDE RECORDS SUMMARY | 2024-10-22 01:04 | XMS_ITS | Encounter Summary ---
Author Organization [facility] Address [address] [place] [address] Care Team Providers Care Pastry Chef Name Role Phone Osbaldo Dewitt NP Primary Care Provider [phone] Reason for Referral * Consult (Routine/Next Available) - Specialty Report Received Specialty Diagnoses / Procedures Referred By Chance le Referred To Contact Diagnoses Chronic pain of both shoulders Osbaldo Dewitt NP Phone: tel: fax: Referral ID Status Reason Start Date Expiration Date Visits Requested Visits Authorized [id number] Specialty Report Received Specialty Services Required 12/26/2022 1 1 Question Answer Reason for Request: bilateral shoulder OA; seeking second opinion for shoulder replacement surgery; seen at [facility] SITE [facility] Reason for Visit * Reason Comments Referral Request Rheumatology Other Ortho suggests bilat shoulder replacements/sciatica is better with PATIENT/knee xray shows spurring Encounter Details Date Type Department Care Team (Latest Contact Info) Description 12/26/2022 11:00 EDT Telemedicine [facility] Family Medicine [address] [phone] Osbaldo Dewitt NP [address] [place] [address] Polyarthropathy (Primary Dx); Elevated fasting glucose; Right [...] 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 [facility] Video Visit Today's visit was provided through [...] left knee. Shehas been seeing orthopedics at [facility] as well as physical therapy. Her PT has recommended discussing rheumatology referral based on her polyarthralgias. Seen by [facility] orthopedics, Dr. Patel 12/25/2022 - for severe [...] shoulders Comments: Referral for second opinion at [facility] sent. Orders: - AMB CONS/FOLLOW UP ORTHOPEDICS [...] Info) Description 11/11/2024 15:30 EST Office Visit [facility] Integrative Family Medicine [facility] [address] [place], [place] [phone] Osbaldo Dewitt NP [address] [place] [address] Scheduled Referrals Name Type Priority [...] region documented in this encounter Care Teams Pastry Chef Relationship Specialty Start Date End Date Osbaldo Dewitt NP [address] [place] [address] PCP - General 09/01/19 documented as of this encounter
--- OUTSIDE RECORDS SUMMARY | 2024-10-22 01:04 | XMS_ITS | Encounter Summary ---
Author Organization [facility] Address [address] [place] [address] Care Team Providers Care Electroplater Apprentice Name Role Phone Osbaldo Dewitt NP Primary Care Provider [phone] Reason for Visit * Reason Comments Medications Refill Encounter Details Date Type Department Care Team (Late st Contact Info) Description 01/29/2023 Refill 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 file Not [...] Office Visit [facility] Integrative Family Medicine [address] [phone] Osbaldo Dewitt NP [address] [place] [phone] documented as of this encounter Visit Diagnoses Diagnosis Anxiety Anxiety state, unspecified Depression, unspecified depression type documented in this encounter Discontinued Medications Medication Sig Discontinue Reason Start Date End Da te venlafaxine (EFFEXOR-XR) 37.5 mg XR capsuleIndications:Anxie ty,Depression, unspecified depression type TAKE ONE CAPSULE BY MOUTH EVERY DAY 01/24/2022 01/30/2023 documented as of this encounter Care Teams Electroplater Apprentice Relationship Specialty Start Date End Date Osbaldo Dewitt NP [address] [place] [phone] PCP - General 09/01/19 documented as of this encounter
--- OUTSIDE RECORDS SUMMARY | 2024-10-22 01:05 | XMS_ITS | Encounter Summary ---
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 Not [...] [facility] Family Medicine [facility] [address] [place], [place] [phone] Osbaldo Dewitt NP [address] [place] [address] documented as of this encounter Visit Diagnoses Diagnosis Anxiety- Primary Anxiety state, unspecified Depression, unspecified depression type documented in this encounter Discontinued Medications Medication Sig Discontinue Reason Start Date End Da te venlafaxine (EFFEXOR-XR) 37.5 mg XR capsule TAKE ONE CAPSULE BY MOUTH EVERY DAY 01/03/2020 01/15/2021 documented as of this encounter Care Teams Charter Bus Driver Relationship Specialty Start Date End Date Osbaldo Dewitt NP [address] [place] [phone] PCP - General 09/01/19 documented as of this encounter
--- OUTSIDE RECORDS SUMMARY | 2024-10-22 01:05 | XMS_ITS | Encounter Summary ---
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
--- OUTSIDE RECORDS SUMMARY | 2024-10-22 01:05 | XMS_ITS | Encounter Summary ---
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 [...] Info) Description 11/11/2024 15:30 EST Office Visit [address] [phone] Osbaldo Dewitt NP [address] [place], [place] [phone] documented as of this encounter Visit Diagnoses Diagnosis Rosacea- Primary documented in this encounter Discontinued Medications Medication Sig Discontinue Reason Start Date End Da te doxycycline (PERIOSTAT) 20 mg tabletIndications:Rosace a TAKE TWO TABLETS BY MOUTH EVERY DAY 12/14/2020 12/24/2021 documented as of this encounter Care Teams Bellhop Captain Relationship Specialty Start Date End Date Osbaldo Dewitt NP [address] [place] [address] PCP - General 09/01/19 documented as of this encounter
--- OUTSIDE RECORDS SUMMARY | 2024-10-22 01:05 | XMS_ITS | Encounter Summary ---
Author Organization [facility] Address [address] [place] [address] Care Team Providers Care Cheese Weigher Name Role Phone Osbaldo Dewitt NP Primary Care Provider [phone] Reason for Referral * PT/OT/ST (Routine) - Closed Specialty Diagnoses / Procedures [facility] Referred To Contact Diagnoses BPPV (benign paroxysmal positional vertigo), right Nava Garnica PA-C Phone: tel: fax: [facility] [address] [place] [address] Phone: tel: fax: Referral ID Status Reason Start Date Expiration Date V isits Requested Visits Authorized [id number] Closed Specialty Services Required 05/07/2021 1 1 Question Answer Reason for Request: Suspect R sided BPPV, please eval and treat. 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 [facility] Patient Instructions Benign Paroxysmal Positional Vertigo (BPPV): [...] Where can you learn more? Go to [email or web address] or log into your [employer] account at [email or web address] Enter P372 in the search box to learn more about Benign Paroxysmal Positional Vertigo (BPPV): CareInstructions. Current as of: January 19, 2020?Content Version: 12.6 ?? [employer]. Care instructions adapted under license by [facility]. If you have questions about a medical condition or this instruction, always ask your healthcare professional. [employer] disclaims any warranty or liability for your [...] RN or in discussion with available provider (COAL SCREENER's and CCA's can defer to Charge Nurse to complete triage when appropriate) PCP: Osbaldo Dewitt * Nava Garnica PA-C - 05/07/2021 1200 EDT [facility] Express Care Chief Complaint(s): [...] Description 11/11/2024 15:30 EST Office Visit [facility] Integrative Family Medicine [address] [phone] Osbaldo Dewitt, SG [address] [place] [address] Scheduled Referrals Name Type Priority [...] POINT OF CARE TEST ORDERABLES Final Result [facility] POINT OF CARE documented in this encounter Visit Diagnoses Diagnosis BPPV (benign paroxysmal positional vertigo), right- Primary Asymptomatic microscopic hematuria documented in this encounter Discontinued Medications Medication Sig Discontinue Reason Start Date End Da te clobetasoL (TEMOVATE) 0.05 % creamIndications:Lichen sclerosus et atrophicus Apply topically once a week prn Error 11/15/2020 05/07/2021 documented as of this encounter Care Teams Cheese Weigher Relationship Specialty Start Date End Date Osbaldo Dewitt NP [address] [place] [address] PCP - General 09/01/19 documented as of this encounter
--- OUTSIDE RECORDS SUMMARY | 2024-10-22 01:05 | XMS_ITS | Encounter Summary ---
Author Organization [facility] Address [address] [place] [address] Care Team Providers Care Hair Salon Manager Name Role Phone Osbaldo Dewitt NP Primary Care Provider [phone] Reason for Visit * Reason Comments Follow-up EC, vertigo, hematur ia/see new UA results Encounter Details Date Type Department Care Team (Late st Contact Info) Description 05/31/2021 9:00 EDT Telemedicine [facility] Integrative Family Medicine [facility] [address] [place] [address] Osabldo Dewitt, RESIDENTIAL INSTALLER [address] [place] [address] Vertigo (Primary Dx); Asymptomatic microscopic [...] 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 [facility] Video Visit Today's visit was provided through [...] Info) Description 11/11/2024 15:30 EST Office Visit [facility] Family [address] [address] Osbaldo Dewitt NP [address] [place], [place] [phone] documented as of this encounter Visit Diagnoses Diagnosis Vertigo- Primary Dizziness and giddiness Asymptomatic microscopic hematuria documented in this encounter Care Teams Hair Salon Manager Relationship Specialty Start Date End Date Osbaldo Dewitt NP [address] [place] [address] PCP - General 09/01/19 documented as of this encounter
--- OUTSIDE RECORDS SUMMARY | 2024-10-22 01:05 | XMS_ITS | Encounter Summary ---
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 C spine XR shows advanced facet arthrosis with multilevel spondylolisthesis and mild translational change with flexion/extension. Let's have her continue plan for PT, if not improving, we'll have her see spine medicine. documented in this encounter Plan of Treatment Upcoming Encounters Date Type Department Care Team (Late st Contact Info) Description 11/11/2024 15:30 EST Office Visit [facility] Integrative Family Medicine [address] [address] Osbaldo Dewitt NP [address] [place] [address] documented as of this encounter Visit Diagnoses Not on filedocumented in this encounter Care Teams Technology Administrator Relationship Specialty Start Date End Date Osbaldo Dewitt NP [address] [place] [address] PCP - General 09/01/19 documented as of this encounter
--- OUTSIDE RECORDS SUMMARY | 2024-10-22 01:05 | XMS_ITS | Encounter Summary ---
Author Organization [facility] Address [address] [place] [address] Care Team Providers Care Business Development Engineer Name Role Phone Osbaldo Dewitt CHUCKING MACHINE SET UP OPERATOR TOOL Primary Care Provider [phone] Reason for Visit * Reason Comments Hypertension Hyperlipidemia Encounter Details Date Type Department Care Team (Latest Contact Info) Description 08/13/2021 8:40 EST Office Visit [facility] [place] [facility] [address] [place] [address] Osbaldo Dewitt NP [address] [place] [address] Primary hypertension (Primary Dx); Need [...] 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 [facility] Primary Care Subjective: Chief Complaint(s): Hypertension and Hyperlipidemia HPI: The history is provided by the patient. No director speech language was used. Hypertension Managed with??hydrochlorothiazide/losarten 25 mg/100 [...] Info) Description 11/11/2024 15:30 [place] [address] Osbaldo Dewitt NP [address] [place], [place] [phone] documented as of this encounter Visit Diagnoses [...] 08/13/2021 documented in this encounter Care Teams Business Development Engineer Relationship Specialty Start Date End Date Osbaldo Dewitt NP [address] [place], [place] [phone] PCP - General 09/01/19 documented as of this encounter
--- OUTSIDE RECORDS SUMMARY | 2024-10-22 01:05 | XMS_ITS | Encounter Summary ---
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 Integrative Family Medicine [facility] [address] [place] [address] Osbaldo Dewitt NP [address] [place] [address] documented as of this encounter Visit Diagnoses Diagnosis Other microscopic hematuria- Primary documented in this encounter Care Teams Farm Tractor Mechanic Relationship Specialty Start Date End Date Osbaldo Dewitt NP [address] [place] [address] PCP - General 09/01/19 documented as of this encounter
--- OUTSIDE RECORDS SUMMARY | 2024-10-22 01:05 | XMS_ITS | Encounter Summary ---
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 Pt notified via [employer] that she needs to get labs done. documented in this encounter Plan of Treatment Upcoming Encounters Date Type Department Care Team (Late st Contact Info) Description 11/11/2024 15:30 EST Office Visit [facility] [address] [phone] Osbaldo Dewitt NP [address] [place] [phone] documented as of this encounter Visit Diagnoses Not on filedocumented in this encounter Discontinued Medications Medication Sig Discontinue Reason Start Date End Da te hydroCHLOROthiazide (HYDRODIURIL) 25 mg tablet Take 1 Tablet by mouth daily. 11/20/2021 07/24/2022 documented as of this encounter Care Teams Stove Polisher Relationship Specialty Start Date End Date Osbaldo Dewitt NP [address] [place] [phone] PCP - General 09/01/19 documented as of this encounter
--- OUTSIDE RECORDS SUMMARY | 2024-10-22 01:05 | XMS_ITS | Encounter Summary ---
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 Reorder 10/28/2022 10/28/2022 documented as of this encounter Care Teams Occupational Nurse Relationship Specialty Start Date End Date Osbaldo Dewitt NP [address] [place] [address] PCP - General 09/01/19 documented as of this encounter
--- OUTSIDE RECORDS SUMMARY | 2024-10-22 01:05 | XMS_ITS | Encounter Summary ---
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 Integrative Family Medicine [facility] [address] [place] [address] Osbaldo Dewitt NP [address] [place] [address] documented as of this encounter Visit Diagnoses Not on filedocumented in this encounter Care Teams Medical Affairs Leader Relationship Specialty Start Date End Date Osbaldo Dweitt NP [address] [place] [address] PCP - General 09/01/19 documented as of this encounter
--- OUTSIDE RECORDS SUMMARY | 2024-10-22 01:05 | XMS_ITS | Encounter Summary ---
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 Reorder 01/29/2022 documented as of this encounter Care Teams Pasting Machine Operator Relationship Specialty Start Date End Date Osbaldo Dewitt NP [address] [place] [address] PCP - General 09/01/19 documented as of this encounter
--- OUTSIDE RECORDS SUMMARY | 2024-10-22 01:05 | XMS_ITS | Encounter Summary ---
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 Not [...] Info) Description 11/11/2024 15:30 EST Office Visit [facility] Integrative Family Medicine [facility] [address] [place], [place] [phone] Osbaldo Dewitt NP [address] [place] [address] documented as of this encounter Visit Diagnoses Diagnosis Anxiety Anxiety state, unspecified Depression, unspecified depression type documented in this encounter Discontinued Medications Medication Sig Discontinue Reason Start Date End Da te venlafaxine (EFFEXOR-XR) 37.5 mg XR capsuleIndications:Anxie ty,Depression, unspecified depression type TAKE ONE CAPSULE BY MOUTH EVERY DAY 01/15/2021 01/24/2022 documented as of this encounter Care Teams Metal Furniture Polisher Relationship Specialty Start Date End Date Osbaldo Dewitt NP [address] [place] [address] PCP - General 09/01/19 documented as of this encounter
--- OUTSIDE RECORDS SUMMARY | 2024-10-22 01:05 | XMS_ITS | Encounter Summary ---
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
--- OUTSIDE RECORDS SUMMARY | 2024-10-22 01:05 | XMS_ITS | Encounter Summary ---
Author Organization [facility] Address [address] [place] [address] Care Team Providers Care Pharmacy Picking Technician Name Role Phone Osbaldo Dewitt NP Primary Care Provider [phone] Unavailable [phone] Reason for Visit * Reason Onset Date Comments Labs Only 09/12/2022 Encounter Details Date Type Department Care Team (Late st Contact Info) Description 09/12/2022 Telephone [facility] [place] [facility] [address] [place] [address] Osbaldo Deiwtt NP [address] [place] [address] Labs Only Social History Tobacco [...] 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 * Telephone Encounter - Alee Tyler - 09/12/2022 0946 EST Pt called to set up PEX (11/18/22) - Would like labs set up prior to her appt - PLEASE SEND TO [facility] IN [facility]. Let me know when done and i'll call out to her. documented in this encounter Plan of Treatment Upcoming Encounters Date Type Department Care Team (Late st Contact Info) Description 11/11/2024 15:30 EST Office Visit [facility] Integrative Family Medicine [address] [address] Osbaldo Dewitt NP [address] [place] [phone] documented as of this encounter Visit Diagnoses Not on filedocumented in this encounter Care Teams Pharmacy Picking Technician Relationship Specialty Start Date End Date Osbaldo Dewitt NP [address] [place] [address] PCP - General 09/01/[address] [place] [phone] Registered Dietitian Clinical Nutrition 10/21/23 documented as of this encounter
--- OUTSIDE RECORDS SUMMARY | 2024-10-22 01:05 | XMS_ITS | Encounter Summary ---
Author Organization [facility] Address [address] [place] [address] Care Team Providers Care Check Out Cashier Name Role Phone Osbaldo Dewitt NP Primary Care Provider [phone] Reason for Visit * Reason Comments Other BP and cardiac desiree rns, has not been taking BPs yet at home Encounter Details Date Type Department Care Team (Latest Contact Info) Description 01/25/2021 8:30 EDT Telemedicine [facility] Integr[facility] Family Medicine [facility] [address] [place] [address] Osbaldo Dewitt NP [address] [place] [address] Chest pain, unspecified type (Primary [...] 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 [facility] Video Visit Today's visit was provided through [...] HTN, HLD The 10-year ASCVD risk score ([place] ISAIAH Jr., et al., 2013) is: 4% [...] Info) Description 11/11/2024 15:30 EST Office Visit [facility] Integrative Family Medicine [address] [phone] Osbaldo Dewitt NP [address] [place] [phone] documented as of this encounter Visit Diagnoses Diagnosis Chest pain, unspecified type- Primary Essential hypertension Unspecified essential hypertension Pure hypercholesterolemia documented in this encounter Historical Medications * This list may reflect changes made after this encounter. cetirizine (ZYRTEC) 10 mg tablet Take 1 Tablet by mouth daily. 11/11/2023 added in this encounter Care Teams Check Out Cashier Relationship Specialty Start Date End Date Osbaldo Dewitt NP [address] [place] [phone] PCP - General 09/01/19 documented as of this encounter
--- OUTSIDE RECORDS SUMMARY | 2024-10-22 01:05 | XMS_ITS | Encounter Summary ---
Author Organization [facility] Address [address] [place] [address] Care Team Providers Care Habitat Biologist Name Role Phone Osbaldo Dewitt NP Primary Care Provider [phone] Reason for Visit * Reason Onset Date Comments Dizziness 03/05/2022 Encounter Details Date Type Department Care Team (Late st Contact Info) Description 03/05/2022 Telephone [facility] [facility] [address] [place] [address] Osbaldo Dewitt NP [address] [place] [address] Dizziness Social History Tobacco Use [...] 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
--- OUTSIDE RECORDS SUMMARY | 2024-10-22 01:05 | XMS_ITS | Encounter Summary ---
Author Organization [facility] Address [address] [place] [address] Care Team Providers Care Chief Business Development Officer Name Role Phone Osbaldo Dewitt NP Primary Care Provider [phone] Reason for Visit * Reason Onset Date Comments Other 01/19/2021 Encounter Details Date Type Department Care Team (Late st Contact Info) Description 01/19/2021 Telephone [facility] Family Medicine [facility] [address] [place] [address] Osbaldo Dewitt NP [address] [place] [address] Other Social History Tobacco Use [...] 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
--- OUTSIDE RECORDS SUMMARY | 2024-10-22 01:05 | XMS_ITS | Encounter Summary ---
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 Transcribed Date/Time: 12/15/2020 (151) ? Ticket Manager: ? Printed Date/Time: 12/15/2020 (8464) ? PAGE 1 ? Signed Report ? [...] O MD CC: Transcribed Date/Time: 12/15/2020 (1513) Ticket Manager: Printed Date/Time: 12/15/2020 (2306) PAGE 1 Signed Report us Osbaldo Dewitt REHEATER IMG MAMMOGRAPHY ORDERABLES Fin al Result * [...] CC: ? Transcribed Date/Time: 12/15/2020 (0836) ? Ticket Manager: ? Printed Date/Time: 12/15/2020 (0837) ? PAGE [...] Aguirre MD CC: Transcribed Date/Time: 12/15/2020 (0836) Ticket Manager: Printed Date/Time: 12/15/2020 (0837) PAGE 1 Signed Report us Osbaldo Dewitt NP IMG DIAGNOSTIC IMAGING ORDERAB LES Final Result documented in this encounter Visit Diagnoses Not on filedocumented in this encounter Care Teams Irrigation Tax Assessor Collector Relationship Specialty Start Date End Date Osbaldo Dewitt NP [address] [place] [address] PCP - General 09/01/[address] [place] [address] Registered Dietitian Clinical Nutrition 10/21/23 documented as of this encounter
--- OUTSIDE RECORDS SUMMARY | 2024-10-22 01:05 | XMS_ITS | Encounter Summary ---
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 Not [...] Info) Description 11/11/2024 15:30 EST Office Visit [address] [address] Osbaldo Dewitt NP [address] [place] [address] documented as of this encounter Visit Diagnoses Diagnosis Essential hypertension- Primary Unspecified essential hypertension documented in this encounter Discontinued Medications Medication Sig Discontinue Reason Start Date End Da te losartan-hydrochlorothiaz juanita (HYZAAR) 100-25 mg per tabletIndications:Essenti al hypertension TAKE ONE TABLET BY MOUTH EVERY DAY 12/13/2020 04/16/2021 documented as of this encounter Care Teams Electro Plater Relationship Specialty Start Date End Date Osbaldo Dewitt NP [address] [place] [address] PCP - General 09/01/19 documented as of this encounter
--- OUTSIDE RECORDS SUMMARY | 2024-10-22 01:05 | XMS_ITS | Encounter Summary ---
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 on file [...] Info) Description 11/11/2024 15:30 EST Office Visit [facility] Family [address] [phone] Osbaldo Dewitt NP [address] [place] [phone] documented as of this encounter Visit Diagnoses Diagnosis Rosacea- Primary documented in this encounter Discontinued Medications Medication Sig Discontinue Reason Start Date End Da te doxycycline (PERIOSTAT) 20 mg tablet TAKE TWO TABLETS BY MOUTH EVERY DAY 06/16/2020 12/13/2020 documented as of this encounter Care Teams Aerosol Line Operator Relationship Specialty Start Date End Date Osbaldo Dewitt NP [address] [place] [phone] PCP - General 09/01/19 documented as of this encounter
--- OUTSIDE RECORDS SUMMARY | 2024-10-22 01:05 | XMS_ITS | Encounter Summary ---
Author Organization [facility] Address [address] [place] [address] Care Team Providers Care Breaker Engineer Name Role Phone Osbaldo Dewitt NP Primary Care Provider [phone] Reason for Visit * Reason Comments Back Pain lower right bback Encounter Details Date Type Department Care Team (Latest Contact Info) Description 02/20/2021 11:20 EDT Office Visit [facility] [address] [place] [address] Osbaldo Dewitt NP [address] [place] [address] Essential hypertension (Primary Dx); Right [...] 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 [facility] [place] Care Subjective: Chief Complaint(s): Back Pain (lower right bback) HPI: The history is provided by the patient. No foreign languages department chair was used. Sandie is seen today for [...] space ergonomics. The 10-year ASCVD risk score (Mobile ISAIAH Jr., et al., 2013) is: 4.6% [...] Info) Description 11/11/2024 15:30 EST Office Visit [facility] Integrative Family Medicine [address] [phone] Osbaldo Dewitt NP [address] [place], [place] [address] documented as of this encounter Visit Diagnoses [...] 02/20/2021 documented in this encounter Care Teams Breaker Engineer Relationship Specialty Start Date End Date Osbaldo Dewitt NP [address] [place] [address] PCP - General 09/01/19 documented as of this encounter
--- OUTSIDE RECORDS SUMMARY | 2024-10-22 01:05 | XMS_ITS | Encounter Summary ---
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 11/20/2021 05/27/2022 documented as of this encounter Care Teams Archival Records Clerk Relationship Specialty Start Date End Date Osbaldo Dewitt NP [address] [place] [address] [id number] PCP - General 09/01/[address] [place] [address] Registered Dietitian Clinical Nutrition 10/21/23 documented as of this encounter
--- OUTSIDE RECORDS SUMMARY | 2024-10-22 01:05 | XMS_ITS | Encounter Summary ---
Author Organization [facility] Address [address] [place] [address] Care Team Providers Care Glass Lathe Operator Name Role Phone Osbaldo Dewitt NP Primary Care Provider [phone] Reason for Visit * Reason Onset Date Comments Dizziness 05/07/2021 Encounter Details Date Type Department Care Team (Late st Contact Info) Description 05/07/2021 Telephone [facility] - [facility] [place] Integr[facility] Medicine [facility] [address] [place] [address] Mellisa Cifuentes RN Dizziness Social [...] 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
--- OUTSIDE RECORDS SUMMARY | 2024-10-22 01:05 | XMS_ITS | Encounter Summary ---
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 Integrative Family Medicine [facility] [address] [place] [address] Osbaldo Dewitt, HARVESTING SUPERVISOR [address] [place] [address] documented as of this encounter Procedures Procedure Name Priority Date/Time Associated Diagnosis Comments EXERCISE TOLERANCE TEST (ETT) 02/08/2021 14:00 EDT documented in this encounter Results * EXERCISE TOLERANCE TEST (ETT) (02/08/2021 14:00 EDT) Anatomical Region Laterality Modality Nuclear Stress 02/08/2021 14:0 0 EDT Narrative 02/11/2021 12:00 EDT *[facility]* *[facility]* [address] [place] [address] Stress Electrocardiography Demetris protocol Date of study: [...] peak heart rate and blood pressure was 39078nf Hg/min. ??The patient experienced no chest pain during stress. ?? Exercise capacity is above normal for age. Stress ECG: ABOVE AVERAGE FUNCTIONAL CAPACITY GOOD EXERCISE CORTNEY- 10 METS ( 9 MINUTES 9 SECONDS IN [facility]) MAX HR- 143 BPM NO CHEST PAIN NO ECTOPY HYPERTENSIVE NO ISCHEMIC ECG CHANGES. ??The stress ECG is negative. Study data: ??Anu Balbuena MD supervised and was readily available during the procedure. This study was interpreted by [facility]. ??Study status: ??Routine. ??Consent: ??The [...] Note Anu Balbuena MD - 02/11/2021 *[facility]* *[facility]* [address] [place] [address] Stress Electrocardiography Demetris protocol Date of study: [...] peak heart rate and blood pressure was 58442cd Hg/min. The patient experienced no chest pain [...] procedure. This study was interpreted by [facility]. Study status: Routine. Consent: The [...] on filedocumented in this encounter Care Teams Hand Worker Relationship Specialty Start Date End Date Osbaldo Dewitt, SG [address] [place] [address] PCP - General 09/01/[address] [place] [address] Registered Dietitian Clinical Nutrition 10/21/23 documented as of this encounter
--- OUTSIDE RECORDS SUMMARY | 2024-10-22 01:05 | XMS_ITS | Encounter Summary ---
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
--- OUTSIDE RECORDS SUMMARY | 2024-10-22 01:05 | XMS_ITS | Encounter Summary ---
Author Organization [facility] Address [address] [place] [address] Care Team Providers Care Prosthetic Lab Technician Name Role Phone Osbaldo Dewitt NP Primary Care Provider [phone] Unavailable [phone] Reason for Visit * Reason Comments Medications Refill Encounter Details Date Type Department Care Team (Late st Contact Info) Description 09/04/2022 Refill [facility] [address] [place], [place] [phone] Osbaldo Dewitt NP [address] [place] [address] Medications Refill Social History Tobacco [...] 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 Not [...] Upcoming Encounters Date Type Department Care Team ([facility] st Contact Info) Description 11/11/2024 15:30 EST Office Visit [facility] Integrative Family Medicine [address] [address] Osbaldo Dewitt NP [address] [place] [address] documented as of this encounter Visit [...] documented as of this encounter Care Teams Prosthetic Lab Technician Relationship Specialty Start Date End Date Osbaldo Dewitt NP [address] [place] [address] [phone] PCP - General 09/01/[address] [place] [address] Registered Dietitian Clinical Nutrition 10/21/23 documented as of this encounter
--- OUTSIDE RECORDS SUMMARY | 2024-10-22 01:05 | XMS_ITS | Encounter Summary ---
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 [...] Info) Description 11/11/2024 15:30 EST Office Visit [facility] [address] [place], [place] [address] Osbaldo Dewitt NP [address] [place] [address] documented as of this encounter Visit Diagnoses Diagnosis Gastroesophageal reflux disease- Primary Esophageal reflux documented in this encounter Discontinued Medications Medication Sig Discontinue Reason Start Date End Da te omeprazole (PRILOSEC) 20 mg capsuleIndications:Gastr oesophageal reflux disease TAKE ONE CAPSULE BY MOUTH AT BEDTIME 10/16/2020 10/15/2021 documented as of this encounter Care Teams Certified Physician'S Assistant Relationship Specialty Start Date End Date Osbaldo Dewitt NP [address] [place] [address] PCP - General 09/01/19 documented as of this encounter
--- OUTSIDE RECORDS SUMMARY | 2024-10-22 01:05 | XMS_ITS | Encounter Summary ---
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 Not on tone e documented as of this encounter Plan of Treatment Upcoming Encounters Date Type Department Care Team (Late st Contact Info) Description 11/11/2024 15:30 EST Office Visit [facility] Integrative Family Medicine [facility] [address] [place] [address] Osbaldo Dewitt NP [address] [place] [address] documented as of this encounter Procedures Procedure Name Priority Date/Time Associated Diagnosis Comments URINALYSIS/COMPLETE - [facility] Routine 05/22/2021 10:23 EDT documented in this encounter Results * URINALYSIS/COMPLETE - [facility] (05/22/2021 10:23 EDT) URINE APPEARANCE - [facility] Clear CLEAR 05/22/2021 12:22 [facility] URINE BACTERIA - [facility] NEG 05/22/2021 13:17 [facility] URINE BILIRUBIN - [facility] - [facility] Negative NEGATIVE 05/22/2021 12:22 [facility] URINE BLOOD - [facility] Trace NEG 05/22/2021 12:22 [facility] URINE COLOR - [facility] Yellow YELLOW 05/22/2021 12:22 [facility] URINE GLUCOSE - [facility] - [facility] Negative NEGATIVE 05/22/2021 12:22 [facility] URINE KETONE - [facility] Negative NEGATIVE 05/22/2021 12:22 [facility] URINE LEUK ESTERASE - [facility] Negative NEG 05/22/2021 12:22 [facility] URINE NITRITE - [facility] - [facility] Negative NEG 05/22/2021 12:22 [facility] URINE PH - [facility] 7.0 4.0 - 8.0 12:22 [facility] URINE PROTEIN - [facility] - [facility] Negative NEG 05/22/2021 12:22 [facility] URINE RBC - [facility] RARE rbc/hpf 05/22/20 13:17 [facility] URCULTIF+? - [facility] No Culture Indicated 05/22/2021 13:17 [facility] Comment:CULTURE IS NOT INDIC ATED, BASED ON RESULTS OF THE URINALYSIS URINE SPECIFIC GRAVITY - [facility] 1.010 1.001 - 1.035 05/22/2021 12:22 [facility] URINE SQUAMOUS CELLS - [facility] RARE NEG #/hpf 05/22/2021 13:17 [facility] URINE UROBILINOGEN - [facility] - [facility] 0.2 0.2 - 1.0 05/22/2021 12:22 [facility] URINE WBC - [facility] NEG NEG wbc/hpf 021 13:17 EDT [facility] 05/22/2021 10:2 3 EDT 05/22/2021 10:23 EDT Narrative [facility] - 05/22/2021 13:17 EDT Does PT Have a Latex Allergy? NO us Osbaldo Dewitt NP CHEMISTRY & BLOOD GAS ORDERABL ES Final Result [facility] [address] [place] [address] documented in this encounter Visit Diagnoses Not on filedocumented in this encounter Care Teams Weaver Dobby Loom Relationship Specialty Start Date End Date Osbaldo Dewitt, SG [address] [place] [address] PCP - General 09/01/19 documented as of this encounter
--- OUTSIDE RECORDS SUMMARY | 2024-10-22 01:05 | XMS_ITS | Encounter Summary ---
Author Organization [facility] Address [address] [place] [address] Care Team Providers Care Scientific Recruiter Name Role Phone Osbaldo Dewitt NP Primary Care Provider [phone] Unavailable [phone] Reason for Visit * Reason Comments Medications Refill Encounter Details Date Type Department Care Team (Late st Contact Info) Description 10/24/2022 Refill [facility] Medicine [facility] [address] [place], [place] [phone] Osbaldo Dewitt NP [address] [place] [address] Medications Refill Social History Tobacco [...] 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 Not [...] Info) Description 11/11/2024 15:30 EST Office Visit [place] [address] Osbaldo Dewitt NP [address] [place], [place] [address] documented as of this encounter Visit Diagnoses Diagnosis Gastroesophageal reflux disease Esophageal reflux documented in this encounter Discontinued Medications Medication Sig Discontinue Reason Start Date End Da te omeprazole (PRILOSEC) 20 mg capsuleIndications:Gastr oesophageal reflux disease TAKE ONE CAPSULE BY MOUTH AT BEDTIME 10/15/2021 10/25/2022 documented as of this encounter Care Teams Scientific Recruiter Relationship Specialty Start Date End Date Osbaldo Dewitt NP [address] [place] [address] PCP - General 09/01/[address] [place] [address] Registered Dietitian Clinical Nutrition 10/21/23 documented as of this encounter
--- OUTSIDE RECORDS SUMMARY | 2024-10-22 01:05 | XMS_ITS | Encounter Summary ---
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 [...] Visit [facility] Integrative Family Medicine [address] [phone] Osbaldo Dewitt NP [address] [place] [phone] documented as of this encounter Visit Diagnoses Diagnosis Essential hypertension- Primary Unspecified essential hypertension documented in this encounter Discontinued Medications Medication Sig Discontinue Reason Start Date End Da te losartan-hydrochlorothia zide (HYZAAR) 100-25 mg per tablet TAKE ONE TABLET BY MOUTH EVERY DAY 05/12/2020 12/13/2020 documented as of this encounter Care Teams Cpa Tax Relationship Specialty Start Date End Date Osbaldo Dewitt NP [address] [place] [id number] PCP - General 09/01/19 documented as of this encounter
--- OUTSIDE RECORDS SUMMARY | 2024-10-22 01:05 | XMS_ITS | Encounter Summary ---
Author Organization [facility] Address [address] [place] [address] Care Team Providers Care Technical Support Representative Name Role Phone Osbaldo Dewitt NP Primary Care Provider [phone] Reason for Visit * Reason Onset Date Comments Appointment Related 09/12/2022 Encounter Details Date Type Department Care Team (Latest Contact Info) Description 09/12/2022 Orders Only [facility] [address] [place] [address] Osbaldo Dewitt NP [address] [place] [address] Encounter for annual physical exam [...] 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 documented in this encounter Plan of Treatment Upcoming Encounters Date Type Department Care Team (Late st Contact Info) Description 11/11/2024 15:30 EST Office Visit [facility] [address] [place] [phone] Osbaldo Dewitt NP [address] [place], [place] [phone] documented as of this encounter Visit Diagnoses Diagnosis Encounter for annual physical exam- Primary Primary hypertension Unspecified essential hypertension Pure hypercholesterolemia documented in this encounter Care Teams Technical Support Representative Relationship Specialty Start Date End Date Osbaldo Dewitt NP [address] [place], [place] [phone] PCP - General 09/01/19 documented as of this encounter
--- OUTSIDE RECORDS SUMMARY | 2024-10-22 01:05 | XMS_ITS | Encounter Summary ---
Author Organization [facility] Address [address] [place] [address] Care Team Providers Care Heating And Cooling Technician Name Role Phone Osbaldo Dewitt NP Primary Care Provider [phone] Reason for Referral * Radiology Services (Routine/Next Available) - Authorization Not Required Specialty Diagnoses / Procedures Referred By Chance le Referred To Contact Diagnoses Encounter for screening mammogram for malignant neoplasm of breast Procedures MA BREAST SCREENING JULIAN BILATERAL Osbaldo Dewitt NP Phone: tel: fax: [facility] Referral ID Status Reason Start Date Expiration Date Visits Requested Visits Authorized [id number] Authorization Not Required 11/22/2021 1 1 Reason for Visit * Radiology Services (Routine/Next Available) - Authorization Not Required Specialty Diagnoses / Procedures Referred By Chance le Referred To Contact Diagnoses Encounter for screening mammogram for malignant neoplasm of breast Procedures MA BREAST SCREENING JULIAN BILATERAL Osbaldo Dewitt NP Phone: tel: fax: [facility] Referral ID Status Reason Start Date Expiration Date Visits Requested Visits Authorized [id number] Authorization Not Required 11/22/2021 1 1 Encounter Details Date Type Department Care Team (Latest Contact Info) Description 03/01/2022 7:48 EDT - 03/01/2022 23:59 EDT Hospital Encounter [facility] - [facility] Mammography [address] [place] [address] Encounter for screening mammogram for malignant neoplasm [...] 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
--- OUTSIDE RECORDS SUMMARY | 2024-10-22 01:05 | XMS_ITS | Encounter Summary ---
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 Not [...] Info) Description 11/11/2024 15:30 EST Office Visit [facility] Integr[facility] Family Medicine [facility] [address] [place] [address] Osbaldo Dewitt, SOLUTION ENGINEER [address] [place] [address] (work) documented as of this encounter Procedures Procedure Name Priority Date/Time Associated Diagnosis Comments LIPID PROFILE (INCLUDES CHOLESTEROL, TRIGLYCERIDES, HDL, LDL) Routine 12/15/2020 7:37 EST COMPREHENSIVE METABOLIC PANEL (CMP) Routine 12/15/2020 7:37 EST documented in this encounter Results * (ABNORMAL) LIPID PROFILE (INCLUDES CHOLESTEROL, TRIGLYCERIDES, HDL, LDL) (12/15/2020 7:37 EST) [facility] Triglyceride 83 <150 mg/dL 12/15/2020 9:04 [facility] Comment: Adult: Normal: ?<150 mg/dl ? Borderline High: 150-199 mg/dl ? High: ?200-499 mg/dl ? Very High: >zu=130 Cholesterol 225(H) <200 mg/dL 12/15/2020 9:04 [facility] Comment: Acceptable: ??<200 Borderline: ??200-239 High: ?> or = 240 Chol/HDL Ratio 3.5 0 - 4.5 12/15/2020 9:04 [facility] Comment: DESIRABLE RATIO IS LESS THAN 4.1 PATIENTS ARE CONSIDERED AT RISK: WOMEN RATIO >5 MEN RATIO >6 FASTING? - [facility] Yes 7:37 [facility] HDL 63(H) 40 - 60 mg/dL 12/15/2020 9:04 [facility] Comment: ?? Reference Range Low: ? < 40 ??mg/dL Normal: ??40-60 mg/dL High: ?>= 60 mg/dL LDL CHOLESTEROL - [facility] 145(H) 60 - 100 mg/dL 12/15/2020 9:04 [facility] Non HDL Cholesterol 162 mg/dl 12/15/2020 9:04 [facility] Comment: Desirable: ?Less than 130 Borderline High: ??130-159 High: ? 160-189 Very High: ?Greater than or equal to 190 12/15/2020 7:37 EST 12/15/2020 7:37 EST Narrative [facility] - 12/15/2020 9:04 EST Does PT Have a Latex Allergy? NO us Osbaldo Dewitt NP CHEMISTRY & BLOOD GAS ORDERABL ES Final Result [facility] [address] [place] [address] * COMPREHENSIVE METABOLIC PANEL (CMP) (12/15/2020 7:37 EST) Albumin % 4.5 3.4 - 4.9 g/dL 12/15/2020 9:04 [facility] ALKALINE PHOSPHATASE - [facility] 63 38 - 126 U/L 12/15/2020 9:04 [facility] BILIRUBIN TOTAL 0.4 0.2 - 1.3 mg/dL 12/15/2020 9:04 [facility] BUN - [facility] 19 10 - 26 mg/dL 12/15/2020 9:04 [facility] CALCIUM - [facility] 9.7 8.5 - 10.5 mg/dL 12/15/2020 9:04 [facility] Chloride 103 96 - 110 mmol/L 12/15/2020 9:04 [facility] CO2 Total 29 22 - 32 mEq/L 12/15/2020 9:04 [facility] CREATININE 0.67 0.52 - 1.04 mg/dL 12/15/2020 9:04 [facility] eGFR >60 12/15/2020 9:04 [facility] Comment: Chronic renal impairment is defined as GFR <60 Multiply result by 1.210 for patients. eGFR calculated using the IDMS-traceable MDRD Study Equation. ??(effective 08/08/2014) Anion Gap 8 0 - 18 12/15/2020 9:04 [facility] GLUCOSE - [facility] 96 70 - 100 mg/dL 12/15/2020 9:04 EST [facility] Potassium 4.3 3.5 - 5.0 mEq/L 12/15/2020 9:04 [facility] Sodium 140 136 - 145 mEq/L 12/15/2020 9:04 EST [facility] TOTAL PROTEIN - [facility] 7.5 6.2 - 8.2 gm/dL 12/15/2020 9:04 [facility] SGOT/AST - [facility] 25 14 - 36 U/L 12/15/2020 9:04 [facility] SGPT/ALT - [facility] 15 0 - 35 U/L 9:04 [facility] 12/15/2020 7:37 EST 12/15/2020 7:37 EST Narrative [facility] - 12/15/2020 9:04 EST Does PT Have a Latex Allergy? NO us Osbaldo Dewitt NP CHEMISTRY & BLOOD GAS ORDERABL ES Final Result [facility] [address] [place] [address] documented in this encounter Visit Diagnoses Not on filedocumented in this encounter Care Teams Software Quality Assurance Engineer Relationship Specialty Start Date End Date Osbaldo Dewitt, SG [address] [place] [address] PCP - General 09/01/19 documented as of this encounter
--- OUTSIDE RECORDS SUMMARY | 2024-10-22 01:05 | XMS_ITS | Encounter Summary ---
Author Organization 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 08/22/2021 documented as of this encounter Care Teams Sider Mechanic Relationship Specialty Start Date End Date Osbaldo Dewitt NP [address] [place] [phone] PCP - General 09/01/19 documented as of this encounter
--- OUTSIDE RECORDS SUMMARY | 2024-10-22 01:06 | XMS_ITS | Encounter Summary ---
Author Organization [facility] Address [facility] [place] [address] Care Team Providers Care Manager Financial Planning Name Role Phone Osbaldo Dewitt APRN Primary Care Provider [phone] Encounter Details Date Type Department Care Team [...] on filedocumented in this encounter Care Teams Manager Financial Planning Relationship Specialty Start Date End Date Osbaldo Dewitt APRN [address] [place] [phone] PCP - General Family Medicine 12/31/22 documented as of this encounter
--- OUTSIDE RECORDS SUMMARY | 2024-10-22 01:06 | XMS_ITS | Encounter Summary ---
Author Organization [facility] Address [address] [place] [address] Care Team Providers Care Information Delivery Analyst Name Role Phone Osbaldo Dewitt NP Primary Care Provider [phone] Reason for Visit * Reason Comments Other Encounter Details Date Type Department Care Team (Late st Contact Info) Description 02/03/2020 Refill [facility] Integrative Family Medicine [address] [address] Osbaldo Dewitt NP [address] [place] [address] Other Social History Tobacco Use [...] Info) Description 11/11/2024 15:30 EST Office Visit [facility] Family [address] [address] Osbaldo Dewitt NP [address] [place] [address] documented as of this encounter [...] documented as of this encounter Care Teams Information Delivery Analyst Relationship Specialty Start Date End Date Osbaldo Dewitt NP [address] [place] [address] PCP - General 09/01/19 documented as of this encounter
--- OUTSIDE RECORDS SUMMARY | 2024-10-22 01:06 | XMS_ITS | Encounter Summary ---
Author Organization [facility] Address [address] [place] [address] Care Team Providers Care Validation Architect Name Role Phone Kesha Dover MD Primary Care Provide r Unavailable Encounter Details Date Type Department Care Team (Latest Contact Info) Description 10/25/2014 14:28 EST - 10/25/2014 14:29 EST Hospital Encounter [address] [address] Emelyn Fagan MD [address] [facility] [address] [place] [phone] Discharge Disposition: Home or Self Care Social [...] Upcoming Encounters Date Type Department Care Team ( st Contact Info) Description 11/11/2024 15:30 EST Office Visit [facility] Family Medicine [facility] [address] [place] [address] Osbaldo Dewitt, SG [address] [place], [place] [phone] documented as of this encounter Visit Diagnoses Not on filedocumented in this encounter Care Teams Validation Architect Relationship Specialty Start Date End Date Kesha Dover MD PCP - General 07/18/14 documented as of this encounter
--- OUTSIDE RECORDS SUMMARY | 2024-10-22 01:06 | XMS_ITS | Encounter Summary ---
Author Organization [facility] Address [address] [place] [address] Care Team Providers Care Systems Architect Name Role Phone Kesha Dover MD Primary Care Provide r Unavailable Encounter Details Date Type Department Care Team (Late st Contact Info) Description 11/20/2017 Historical Results Only [facility] Radiology Results [address] [place], [place] [address] Ada Theodore PA-C [address] [facility] [address] [place], [place] [phone] Social History Tobacco Use Types Packs/Day Years [...] Info) Description 11/11/2024 15:30 EST Office Visit [facility] Family [facility] [address] [place] [address] Osbaldo Dewitt NP [address] [place] [address] documented as of this encounter Procedures Procedure Name Priority Date/Time Associated Diagnosis Comments XR CHEST 2 VIEWS 11/20/2017 14:0 6 EST documented in this encounter Results * XR CHEST 2 VIEWS (11/20/2017 14:06 EST) Anatomical Region Laterality Modality Other 11/20/2017 14:0 6 EST Narrative 11/20/2017 14:09 EST ? EXAM: RADIOLOGY EXPRESS CARE/EXP CARE LILIANA EX. D/ (3600) ? CLINICAL INFORMATION: ? COUGH X 2 [...] CC: ? Transcribed Date/Time: 11/20/2017 (1409) ? Endbander: [email or web address] ? Printed Date/Time: 03/25/2019 (5454) ? PAGE 1 ? Signed Report ? [...] Arnold MD CC: Transcribed Date/Time: 11/20/2017 (1409) Endbander: Printed Date/Time: 03/25/2019 (1012) PAGE 1 Signed Report us Ada Theodore PA-C IMG DIAGNOSTIC IMAGING ORDERABLES Final Result documented in this encounter Visit Diagnoses Not on filedocumented in this encounter Care Teams Systems Architect Relationship Specialty Start Date End Date Kesha Dover MD PCP - General 07/18/14 documented as of this encounter
--- OUTSIDE RECORDS SUMMARY | 2024-10-22 01:06 | XMS_ITS | Encounter Summary ---
Author Organization [facility] Address [address] [place] [address] Care Team Providers Care Mold Finisher Name Role Phone Kesha Dover MD Primary Care Provide r Unavailable Encounter Details Date Type Department Care Team (Late st Contact Info) Description 11/13/2018 Historical Results Only [facility] Radiology Results [address] [place] [address] Osbaldo Dewitt NP [address] [place], [place] [address] Social History Tobacco Use Types Packs/Day Years [...] Visit [facility] Integrative Family Medicine [facility] [address] [place], [place] [address] Osbaldo Dewitt NP [address] [place] [address] documented as of this encounter Visit Diagnoses Not on filedocumented in this encounter Care Teams Mold Finisher Relationship Specialty Start Date End Date Kesha Dover MD PCP - General 07/18/14 documented as of this encounter
--- OUTSIDE RECORDS SUMMARY | 2024-10-22 01:06 | XMS_ITS | Encounter Summary ---
Author Organization [facility] Address [address] [place] [address] Care Team Providers Care Dean Of Graduate Studies Name Role Phone Kesha Dover MD Primary Care Provide r Unavailable Encounter Details Date Type Department Care Team (Latest Contact Info) Description 05/13/2017 14:17 EDT - 05/13/2017 23:59 EDT Hospital Encounter [facility] [address] [place] [address] Kesha Dover MD Discharge Disposition: Home or Self Care Social [...] INSTRUCTIONS. once a week prn 06/04/2016 1 venlafaxine (EFFEXOR XR) 37.5 mg XR capsule Take 1 Cap by mouth daily. 11/26/2016 0 documented as of this encounter Discharge Disposition Disposition Code Departure Means Destination Home or Self Residential documented in this encounter Plan of Treatment Upcoming Encounters Date Type Department Care Team (Late st Contact Info) Description 11/11/2024 15:30 EST Office Visit [facility] Family [address] [phone] Osbaldo Dewitt NP [address] [place], [place] [phone] documented as of this encounter Visit Diagnoses Not on filedocumented in this encounter Care Teams Dean Of Graduate Studies Relationship Specialty Start Date End Date Kesha Dover MD PCP - General 07/18/14 documented as of this encounter
--- OUTSIDE RECORDS SUMMARY | 2024-10-22 01:06 | XMS_ITS | Encounter Summary ---
Author Organization [facility] Address [facility] [place] [address] Care Team Providers Care Guest Service Representative Name Role Phone Osbaldo Dewitt APRN Primary Care Provider [phone] Encounter Details Date Type Department Care Team [...] on filedocumented in this encounter Care Teams Guest Service Representative Relationship Specialty Start Date End Date Osbaldo Dewitt APRN [address] [place] [phone] PCP - General Family Medicine 12/31/22 documented as of this encounter
--- OUTSIDE RECORDS SUMMARY | 2024-10-22 01:06 | XMS_ITS | Encounter Summary ---
Author Organization [facility] Address [facility] [place] [address] Care Team Providers Care Community Director Name Role Phone EsdrasOsbaldo weston Yaron PAGE Primary Care Provider [phone] Reason for Visit * Reason Onset Date Comments Appointment 12/26/2023 Post Procedure Call 12/26/2023 Encounter Details Date Type Department Care Team (Late st Contact Info) Description 12/26/2023 Telephone [place] [phone] Christine Colby MD [facility] DR [place] [address] Appointment; Post Procedure Call Social History Tobacco Use Types Packs/Day Years Used Date Smoking Tobacco: Former Cigarettes Smokeless Tobacco: Never Alcohol Use Standard Drinks/Week Comments Yes 14 (1 standard drink = 0.6 oz pu re alcohol) [facility] Inpatient Questions Answer Date Recorded Does Anyone [...] MA - 12/26/2023 10:46 AM EDT Patient's MedioTrabajo message forwarded to Joan for appt type recommendation and incision review. * Telephone Encounter - Jean Carlos Ibarra - 12/26/2023 10:12 AM EDT Who is calling? Cheryl Best call back number: [phone] Best time to call back between 8:00 am & 5:00 pm: Anytime Can we leave a message? yes When was your procedure? 12/09/23 Who was your surgeon? Dr. Colby What procedure did you have done? 12/09/2023 0730 TOTAL SHOULDER ARTHROPLASTY (WRVU 22.13) - Right MODIFIER SIDUS SHOULDER CHANDLER BIOMET TENODESIS,BICEPS TENDON (PROXIMAL) (WRVU 10.17) - Right Christine Colby (Primary) Bird Corona Nicole T [facility] Discharged What is the [...] Pat is also going to send a MedioTrabajo message with an attached picture of her [...] on filedocumented in this encounter Care Teams Community Director Relationship Specialty Start Date End Date Osbaldo Dewitt APRN [address] [place] [phone] PCP - General Family Medicine 12/31/22 documented as of this encounter
--- OUTSIDE RECORDS SUMMARY | 2024-10-22 01:06 | XMS_ITS | Encounter Summary ---
Author Organization [facility] Address [facility] [place] [address] Care Team Providers Care Boiler Erector Name Role Phone Osbaldo Dewitt Yaron PAGE Primary Care Provider [phone] Encounter Details Date Type Department Care Team (Late st Contact Info) Description 03/10/2024 8:10 AM EDT Telephone [place] [phone] Christine Colby MD [facility] DR ORTHOPAED[place] [address] Social History Tobacco Use Types Packs/Day Years [...] Colby M.D., M.S. Professor of Orthopaedic Surgery [facility] [employer] [facility] Department [place] [address] This note was transcribed with the use of iBoxPay voice recognition software. documented in this encounter Plan of Treatment Not on file documented as of this encounter Visit Diagnoses Not on filedocumented in this encounter Care Teams Boiler Erector Relationship Specialty Start Date End Date Osbaldo Dewitt APRN [address] [place] [phone] PCP - General Family Medicine 12/31/22 documented as of this encounter
--- OUTSIDE RECORDS SUMMARY | 2024-10-22 01:06 | XMS_ITS | Encounter Summary ---
Author Organization [facility] Address [address] [place] [address] Care Team Providers Care Tool Turret Lathe Set Up Operator Name Role Phone Osbaldo Dewitt NP Primary Care Provider [phone] Reason for Visit * Reason Onset Date Comments Medications Refill 11/02/2019 Encounter Details Date Type Department Care Team (Late st Contact Info) Description 11/02/2019 Telephone [facility] Integrative Family Medicine [facility] [address] [place] [address] Osbaldo Dewitt NP [address] [place] [address] Medications Refill Social History Tobacco [...] [facility] Integrative Family Medicine [address] [phone] Osbaldo Dewitt, SG [address] [place], [place] [phone] documented as of this encounter Visit Diagnoses [...] 11/02/2019 added in this encounter Care Teams Tool Turret Lathe Set Up Operator Relationship Specialty Start Date End Date Osbaldo Dewitt NP [address] [place] [phone] PCP - General 09/01/19 documented as of this encounter
--- OUTSIDE RECORDS SUMMARY | 2024-10-22 01:06 | XMS_ITS | Encounter Summary ---
Author Organization [facility] Address [address] [place] [address] Care Team Providers Care Pathology Secretary Name Role Phone Kesha Dover MD Primary Care Provide r Unavailable Encounter Details Date Type Department Care Team (Late st Contact Info) Description 05/13/2017 Historical Results Only [facility] Radiology Results [address] [place] [address] Mellisa Sweeney NP [address] [place] [address] [place] [phone] Social History Tobacco Use Types Packs/Day Years [...] 11/11/2024 15:30 EST Office Visit [facility] [address] [place] [address] Osbaldo Dewitt NP [address] [place] [address] documented as of this encounter Procedures Procedure [...] CC: ? Transcribed Date/Time: 05/13/2017 (0913) ? Medical/Surgery Registered Nurse: ? Printed Date/Time: 03/23/2019 (1835) ? PAGE [...] Douglas MD CC: Transcribed Date/Time: 05/13/2017 (0913) Medical/Surgery Registered Nurse: Printed Date/Time: 03/23/2019 (2501) PAGE 1 Signed Report Mellisa Sweeney NP IMG DIAGNOSTIC IMAGING ORDERA BLES Final Result documented in this encounter Visit Diagnoses Not on filedocumented in this encounter Care Teams Pathology Secretary Relationship Specialty Start Date End Date Kesha Dover MD PCP - General 07/18/14 documented as of this encounter
--- OUTSIDE RECORDS SUMMARY | 2024-10-22 01:06 | XMS_ITS | Encounter Summary ---
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 [facility] Primary Care Preventive Service Visit Subjective: HPI: [...] pt prefers every 5 years. Managed on [id number] QD. Rare breakthrough sxs. ?? 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 Missed a dose last week, felt heart racing and anxiety that day. DIET & EXERCISE Diet: Logging calories through [employer] Exercise: no purposeful Behavioral Health Screen PHQ-2 [...] Date ??? GASTRIC FUNDOPLICATION 2009 Ramy-fundoplication at [facility] Family History Problem Relation Age of Onset [...] Description 11/11/2024 15:30 EST Office Visit [facility] Family [address] [address] Osbaldo Dewitt WIND TURBINE MACHINIST [address] [place] [address] documented as [...] documented as of this encounter Care Teams Safe Deposit Box Rental Clerk Relationship Specialty Start Date End Date Osbaldo Dewitt NP [address] [place] [address] PCP - General 09/01/19 documented as of this encounter
--- OUTSIDE RECORDS SUMMARY | 2024-10-22 01:06 | XMS_ITS | Encounter Summary ---
Author Organization [facility] Address [address] [place] [address] Care Team Providers Care Mechanical Spreader Operator Name Role Phone Osbaldo Dewitt NP Primary Care Provider [phone] Unavailable [phone] Reason for Visit * Reason Comments Other Encounter Details Date Type Department Care Team (Late st Contact Info) Description 12/02/2019 Refill [facility] Integrative Family Medicine [facility] [address] [place] [address] Osbaldo Dewitt NP [address] [place] [address] Other Social History Tobacco Use [...] Upcoming Encounters Date Type Department Care Team ([facility] st Contact Info) Description 11/11/2024 15:30 EST Office Visit [facility] Family [address] [phone] Osbaldo Dewitt NP [address] [place] [phone] documented as of this encounter Visit Diagnoses Not on filedocumented in this encounter Discontinued Medications Medication Sig Discontinue Reason Start Date End Da te doxycycline (PERIOSTAT) 20 mg tablet Take 2 Tabs by mouth daily. 12/02/2019 documented as of this encounter Care Teams Mechanical Spreader Operator Relationship Specialty Start Date End Date Osbaldo Dewitt NP [address] [place] [phone] PCP - General 09/01/[address] [place] [phone] Registered Dietitian Clinical Nutrition 10/21/23 documented as of this encounter
--- OUTSIDE RECORDS SUMMARY | 2024-10-22 01:06 | XMS_ITS | Encounter Summary ---
Author Organization [facility] Address [facility] [place] [address] Care Team Providers Care Chief Mate Name Role Phone Osbaldo Dewitt APRN Primary Care Provider [phone] Reason for Visit * Reason Comments Post Op DOS:12-09-23 RIGHT TSA Encounter Details Date Type Department Care Team (Late st Contact Info) Description 12/30/2023 1:30 PM EDT Office [place] [address] Joan Sow PA [facility] [place] [address] s/p right anatomic stemless TSA, 12/09/23 (Dr Colby); s/p left anatomic stemless TSA, 03/11/23 (Dr Colby) Social History Tobacco Use Types Packs/Day Years Used Date Smoking Tobacco: Former Cigarettes Smokeless Tobacco: Never Alcohol Use Standard Drinks/Week Comments Yes 14 (1 standard drink = 0.6 oz pu re alcohol) [facility] Inpatient Questions Answer Date Recorded Does [...] Name: Sandie Manriquez AGE: 63 y.o. MR#: [id number] Date of Visit: 12/30/2023 Procedure: right anatomic [...] She does have follow-up scheduled with her image assembler. Denies fevers, chills, shortness of breath, chest [...] No new images today Survey Responses: 12/26/2023 [facility] Surgical Followup Visit PROMIS-10 General Health Good [...] since surgery Yes Where was ER located? [place], [place] Date of ER visit 12/13/2023 Reason for ER visit A-Fib Admitted to hospital since recent ortho surgery No Additional surgery on same body part No Satisfaction with Treatment Satisfied Choose Same Treatment Again Definitely yes 12/26/2023 [facility] Response ASES VAS-RIGHT 1 ASES ADL-RIGHT ARM [...] PM The above documentation was completed using [employer] voice recognition software. documented in this encounter Plan of Treatment Not on file documented as of this encounter Results * XR Shoulder Bilat (Generic) (01/27/2024 7:47 AM EDT) [employer] WORKSTATION ID [id number] RAD Anatomical Region Laterality Modality Shoulder Bilateral [...] who have questions please contact the health caregiver assisted living that requested your imaging first. ? Electronically signed by: Ruth Gamboa MD, [facility] ([phone]), at 01/27/2024 1:24 PM Narrative 01/27/2024 1:24 [...] spine degeneration is partially included in the [id number]. Visualized lung mensah are clear. Procedure Note [...] Cervicothoracic spine degeneration is partially included in [id number]. Visualized lung mensah are clear. IMPRESSION Bilateral [...] patients who have questions please contactthe health caregiver assisted living that requested your imaging first. Electronically signed by: Ruth Gamboa MD, [facility]([phone]), at 01/27/2024 1:24 PM Christine Colby MD IMG DX ORDERABLES documented in this encounter Visit Diagnoses Diagnosis s/p right anatomic stemless TSA, 12/09/23 (Dr Colby) s/p left anatomic stemless TSA, 03/11/23 (Dr Colby) s/p right anatomic stemless TSA, 12/09/23 (Dr Colby) s/p left anatomic stemless TSA, 03/11/23 (Dr Colby) documented in this encounter Care Teams Chief Mate Relationship Specialty Start Date End Date Osbaldo Dewitt APRN [address] [place] [phone] PCP - General Family Medicine 12/31/22 documented as of this encounter
--- OUTSIDE RECORDS SUMMARY | 2024-10-22 01:06 | XMS_ITS | Encounter Summary ---
Author Organization [facility] Address [address] [place] [address] Care Team Providers Care Pants Presser Automatic Name Role Phone Osbaldo Dewitt NP Primary Care Provider [phone] Reason for Visit * Reason Comments Other Encounter Details Date Type Department Care Team (Late st Contact Info) Description 06/16/2020 Refill [facility] [address] [address] Osbaldo Dewitt NP [address] [place] [address] Other Social History Tobacco Use [...] Info) Description 11/11/2024 15:30 EST Office Visit [facility] Family Medicine [place] [address] Osbaldo Dewitt NP [address], [place] [phone] documented as of this encounter Visit Diagnoses Not on filedocumented in this encounter Discontinued Medications Medication Sig Discontinue Reason Start Date End Da te doxycycline (PERIOSTAT) 20 mg tablet Take 2 Tabs by mouth daily for 90 days. 12/02/2019 06/16/2020 documented as of this encounter Care Teams Pants Presser Automatic Relationship Specialty Start Date End Date Osbaldo Dewitt NP [address], [place] [phone] PCP - General 09/01/19 documented as of this encounter
--- OUTSIDE RECORDS SUMMARY | 2024-10-22 01:06 | XMS_ITS | Encounter Summary ---
Author Organization [facility] Address [facility] [place] [address] Care Team Providers Care Assistant Food Service Director Name Role Phone Osbaldo Dewitt CAMILO Primary Care Provider [phone] Reason for Visit * Reason Comments Follow-up XR RIGHT TSA D OS:12-09-23 Encounter Details Date Type Department Care Team (Late st Contact Info) Description 01/27/2024 8:30 AM EDT Office [place] [address] Joan Sow PA [facility] [address] [place] [address] s/p right anatomic stemless TSA, 12/09/23 (Dr Colby) (Primary Dx); s/p left anatomic stemless TSA, 03/11/23 (Dr Colby) Social History Tobacco Use Types Packs/Day Years Used Date Smoking Tobacco: Former Cigarettes Smokeless Tobacco: Never Alcohol Use Standard Drinks/Week Comments Yes 14 (1 standard drink = 0.6 oz pu re alcohol) [facility] Inpatient Questions Answer Date Recorded Does [...] Name: Sandie Manriquez AGE: 63 y.o. MR#: [id number] Date of Visit: 01/27/2024 Procedure: right anatomic [...] without acute postoperative complications. Survey Responses: 01/26/2024 [facility] Surgical Followup Visit PROMIS-10 General [...] since surgery Yes Where was ER located? [place], [place] Date of ER visit 12/13/2023 Reason for ER visit A-fib Admitted to hospital since recent ortho surgery No Additional surgery on same body part No Satisfaction with Treatment Satisfied Choose Same Treatment Again Definitely yes 01/26/2024 [facility] Response ASES VAS-RIGHT 1 ASES [...] AM The above documentation was completed using [employer] voice recognition software. documented in this encounter Plan of Treatment Not on file documented as of this encounter Visit Diagnoses Diagnosis s/p right anatomic stemless TSA, 12/09/23 (Dr Colby)- Primary s/p left anatomic stemless TSA, 03/11/23 (Dr Colby) documented in this encounter Care Teams Assistant Food Service Director Relationship Specialty Start Date End Date Osbaldo Dewitt APRN [address] [place] [phone] PCP - General Family Medicine 12/31/22 documented as of this encounter
--- OUTSIDE RECORDS SUMMARY | 2024-10-22 01:06 | XMS_ITS | Encounter Summary ---
Author Organization [facility] Address [address] [place] [address] Care Team Providers Care Infusion Rn Name Role Phone Unavailable Primary Care Provider Unavailabl e Encounter Details Date Type Department Care Team (Latest Contact Info) Description 07/07/2014 13:34 EDT - 07/07/2014 23:59 EDT Hospital Encounter [facility] [address] [place] [address] Kesha Dvoer MD Discharge Disposition: Home or Self Care [...] Visit [facility] Integrative Family Medicine [facility] [address] [place] [address] Osbaldo Dewitt, POSTAL DELIVERY OFFICER [address] [place] [address] documented as of this encounter Visit Diagnoses Not on filedocumented in this encounter
--- OUTSIDE RECORDS SUMMARY | 2024-10-22 01:06 | XMS_ITS | Encounter Summary ---
Author Organization [facility] Address [address] [place] [address] Care Team Providers Care Waste Water Or Water Plant Operator Name Role Phone Osbaldo Dewitt NP Primary Care Provider [phone] Reason for Visit * Reason Comments Insect Bite Encounter Details Date Type Department Care Team (Late st Contact Info) Description 08/13/2020 15:40 EST [facility]-In [facility] [address] [place], [place] [phone] Nava Garnica PA-C [address] [facility] [address] [place] [address] Local reaction to insect sting, [...] For patients, please refer to guidance in RegisterPatientt on how to locate information. Generally this information will appear as a scanned documents saved in My Documents activity. documented in this encounter Plan of Treatment Upcoming Encounters Date Type Department Care Team (Late st Contact Info) Description 11/11/2024 15:30 EST Office Visit [address] [address] Osbaldo Dewitt NP [address] [place] [address] documented as of this encounter Visit [...] 09/13 documented in this encounter Care Teams Waste Water Or Water Plant Operator Relationship Specialty Start Date End Date Osbaldo Dewitt NP [address] [place] [address] PCP - General 09/01/19 documented as of this encounter
--- OUTSIDE RECORDS SUMMARY | 2024-10-22 01:06 | XMS_ITS | Encounter Summary ---
Author Organization [facility] Address [address] [place] [address] Care Team Providers Care Loan Manager Name Role Phone Kseha Dover MD Primary Care Provide r Unavailable Encounter Details Date Type Department Care Team (Late st Contact Info) Description 10/01/2016 Historical Results Only [facility] - Main [place] [address] [place], [place] [phone] Bird Watkins MD Social History Tobacco Use [...] Description 11/11/2024 15:30 EST Office Visit [facility] Integrative Family Medicine [facility] [address] [place], [place] [phone] Osbaldo Dewitt, PHARMACY SERVICES DIRECTOR [address] [place], [place] [phone] documented as of this encounter Procedures Procedure Name Priority Date/Time Associated Diagnosis Comments SURGICAL PATHOLOGY Routine 10/01/2016 16 :19 EST documented in this encounter Results * SURGICAL PATHOLOGY (10/01/2016 16:19 EST) 10/01/2016 16:1 9 EST 10/01/2016 16:19 EST Narrative [facility] - 10/02/2016 11:55 EST ----- ------- Name: SANDIE DUVALL ? : [birth year] ?Age/Sex: 58/F ?Unit#: [id number] ? Loc: END ? Status: DEP CLI ?? Reg Date: 10/01/16 ? Pt.Phone Number: ? ----- ------- Specimen: [id number] ? STATUS: SOUT ?Spec Date:10/01/16 ? Physician Copies: ?Bird Watkins MD ?? Tissues: A ?? Endoscopy specimen (ESOPHAGUS) ? Osbaldo Dewitt ? CPT: 61194 ?? Units: ??1 ?FINAL DIAGNOSIS ? ESOPHAGUS, [...] confirmed the above diagnosis. Test Performed by [facility], [address] [place] [address] Casting Machine Service Operator: Ewa Glover MD PHD ----- ------- us Bird Watkins MD PATHOLOGY ORDERABLES Final Re sult [facility] documented in this encounter Visit Diagnoses Not on filedocumented in this encounter Care Teams Loan Manager Relationship Specialty Start Date End Date Kesha Dover MD PCP - General 07/18/14 documented as of this encounter
--- OUTSIDE RECORDS SUMMARY | 2024-10-22 01:06 | XMS_ITS | Encounter Summary ---
Author Organization [facility] Address [address] [place] [address] Care Team Providers Care Strap Cutter Name Role Phone Kesha Dover MD Primary Care Provide r Unavailable Encounter Details Date Type Department Care Team (Late st Contact Info) Description 07/02/2017 Historical Results Only [facility] - Main [place] [address] [place] [address] Osbaldo Dewitt NP [address] [place], [place] [phone] Social History Tobacco Use Types Packs/Day Years [...] Info) Description 11/11/2024 15:30 EST Office Visit [facility] Integrative Family Medicine [facility] [address] [place] [address] Osbaldo Dewitt NP [address] [place] [address] documented as of this encounter Procedures Procedure Name Priority Date/Time Associated Diagnosis Comments LIPID PROFILE (INCLUDES CHOLESTEROL, TRIGLYCERIDES, HDL, LDL) Routine 07/02/2017 8:38 EDT documented in this encounter Results * (ABNORMAL) LIPID PROFILE (INCLUDES CHOLESTEROL, TRIGLYCERIDES, HDL, LDL) (07/02/2017 8:38 EDT) Triglyceride 121 35 - 150 mg/dL 07/02/2017 9:[address] [facility] Cholesterol 232(H) 120 - 200 mg/dL 07/02/2017 9:[address] [facility] Chol/HDL Ratio 3.2 0 - 4.5 07/02/2017 9:[address] [facility] Comment: DESIRABLE RATIO IS LESS THAN 4.1 PATIENTS ARE CONSIDERED AT RISK: WOMEN RATIO >5 MEN RATIO >6 FASTING? - [facility] Yes 8:[address] [facility] HDL 71(H) 40 - 60 mg/dL 07/02/2017 9:[address] [facility] LDL CHOLESTEROL - [facility] 137(H) 60 - 100 mg/dL 07/02/2017 9:[address] [facility] Non HDL Cholesterol 161 mg/dl 07/02/2017 9:[address] [facility] Comment: Desirable: ?Less than 130 Borderline High: ??130-159 High: ? 160-189 Very High: ?Greater than or equal to 190 07/02/2017 8:38 EDT 07/02/2017 8:[address] [facility] - 07/02/2017 9:50 EDT Does PT Have a Latex Allergy? NO us Osbaldo Dewitt NP CHEMISTRY & BLOOD GAS ORDERABL ES Final Result [facility] documented in this encounter Visit Diagnoses Not on filedocumented in this encounter Care Teams Strap Cutter Relationship Specialty Start Date End Date Kesha Dover MD PCP - General 07/18/14 documented as of this encounter
--- OUTSIDE RECORDS SUMMARY | 2024-10-22 01:06 | XMS_ITS | Encounter Summary ---
Author Organization [facility] Address [address] [place] [address] Care Team Providers Care Exchange Teller Name Role Phone Osbaldo Dewitt CONSUMER EDUCATION SPECIALIST Primary Care Provider [phone] Encounter Details Date Type Department Care Team (Late st Contact Info) Description 10/04/[address] [facility] - Main [place] [address] [place] [address] Bird Watkins MD Social History [...] 11/11/2024 15:[address] [facility] Integrative Family Medicine [facility] [address] [place], [place] [phone] Osbaldo Dewitt NP [address] [place] [address] documented as of this encounter Procedures Procedure Name Priority Date/Time Associated Diagnosis Comments SURGICAL PATHOLOGY Routine 10/04/2019 documented in this encounter Results * SURGICAL PATHOLOGY (10/04/2019) 10/04/2019 10/04/2019 10: 36 EST Narrative [facility] - 10/05/2019 10:05 EST ----- ------- Name: SANDIE DUVALL ? : 58 ?Age/Sex: 59/F ?Unit#: [id number] ? Loc: END ? Status: DEP CLI ?? Reg Date: 10/04/19 ? Pt.Phone Number: ? ----- ------- Specimen: [id number] ? STATUS: SOUT ?Spec Date:10/04/19 ? Physician Copies: ?Bird Watkins MD ?? Tissues: A ?? Endoscopy specimen ([place]) ? Osbaldo Dewitt ? CPT: 84955 ?? Units: ??1 ?FINAL DIAGNOSIS ? GASTROESOPHAGEAL [...] confirmed the above diagnosis. Test Performed by [facility], [address] [place] [address] Mammography Technician: Eaw Glover MD PHD ----- ------- us Bird Watkins MD PATHOLOGY ORDERABLES Final Re sult [facility] documented in this encounter Visit Diagnoses Not on filedocumented in this encounter Care Teams Exchange Teller Relationship Specialty Start Date End Date Osbaldo Dewitt CONSUMER EDUCATION SPECIALIST [address] [place] [address] PCP - General 09/01/19 documented as of this encounter
--- OUTSIDE RECORDS SUMMARY | 2024-10-22 01:06 | XMS_ITS | Encounter Summary ---
Author Organization [facility] Address [facility] [place] [address] Care Team Providers Care [place] Customs And Border Officer Name Role Phone Osbaldo Dewitt APRN Primary Care Provider [phone] Encounter Details Date Type Department Care Team [...] on filedocumented in this encounter Care Teams Us Customs And Border Officer Relationship Specialty Start Date End Date Osbaldo Dewitt APRN [address] [place] [address] [phone] PCP - General Family Medicine 12/31/22 documented as of this encounter
--- OUTSIDE RECORDS SUMMARY | 2024-10-22 01:06 | XMS_ITS | Encounter Summary ---
Author Organization [facility] Address [address] [place] [address] Care Team Providers Care Yacht Hand Name Role Phone Kesha Dover MD Primary Care Provide r Unavailable Encounter Details Date Type Department Care Team (Late st Contact Info) Description 10/23/2018 Historical Results Only [facility] - Main [place] [address] [place] [address] Osbaldo Dewitt NP [address] [place], [place] [phone] Social History Tobacco Use Types Packs/Day Years [...] Visit [facility] Integrative Family Medicine [facility] [address] [place] [address] Osbaldo Dewitt NP [address] [place] [address] documented as of this encounter Procedures Procedure Name Priority Date/Time Associated Diagnosis Comments MAGNESIUM Routine 10/23/2018 8:00 EST VITAMIN B12 Routine 10/23/2018 8:00 EST LIPID PROFILE (INCLUDES CHOLESTEROL, TRIGLYCERIDES, HDL, LDL) Routine 10/23/2018 8:00 EST BASIC METABOLIC PANEL (BMP) Routine 10/23/2018 8:00 EST documented in this encounter Results * (ABNORMAL) VITAMIN B12 (10/23/2018 8:00 EST) [facility] VITAMIN B12 - [facility] >1,000(H) 239 - 931 pg/mL 10/23/2018 10:07 EST [facility] Comment: The results of this assay can be falsely elevated due to the consumption of Biotin. 10/23/2018 8:00 EST 10/23/2018 8:00 EST Narrative [facility] - 10/23/2018 10:07 EST Does PT Have a Latex Allergy? NO us Osbaldo Dewitt RECREATIONAL FACILITIES MOTEL MANAGER CHEMISTRY & BLOOD GAS ORDERABL ES Final Result Performing Organization Address [facility] Co de Phone Number [facility] * MAGNESIUM (10/23/2018 8:00 EST) [facility] Magnesium 1.80 1.7 - 2.8 mg/dL 10/23/2018 9:24 EST [facility] 10/23/2018 8:00 EST 10/23/2018 8:00 EST Narrative [facility] - 10/23/2018 9:24 EST Does PT Have a Latex Allergy? NO us Osbaldo Dewitt RECREATIONAL FACILITIES MOTEL MANAGER CHEMISTRY & BLOOD GAS ORDERABL ES Final Result Performing Organization Address [facility]/ZIP Co de Phone Number [facility] * (ABNORMAL) LIPID PROFILE (INCLUDES CHOLESTEROL, TRIGLYCERIDES, HDL, LDL) (10/23/2018 8:00 EST) Triglyceride 79 <150 mg/dL 10/23/2018 9:24 [facility] Comment: Adult: Normal: ?<150 mg/dl ? Borderline High: 150-199 mg/dl ? High: ?200-499 mg/dl ? Very High: >hq=079 Cholesterol 205(H) <200 mg/dL 10/23/2018 9:24 [facility] Comment: Acceptable: ??<200 Borderline: ??200-239 High: ?> or = 240 Chol/HDL Ratio 3.4 0 - 4.5 10/23/2018 9:24 [facility] Comment: DESIRABLE RATIO IS LESS THAN 4.1 PATIENTS ARE CONSIDERED AT RISK: WOMEN RATIO >5 MEN RATIO >6 FASTING? - [facility] Yes 8:00 [facility] HDL 60 40 - 60 mg/dL 10/23/2018 9:24 [facility] Comment: ?? Reference Range Low: ? < 40 ??mg/dL Normal: ??40-60 mg/dL High: ?>= 60 mg/dL LDL CHOLESTEROL - [facility] 129(H) 60 - 100 mg/dL 10/23/2018 9:24 [facility] Non HDL Cholesterol 145 mg/dl 10/23/2018 9:24 [facility] Comment: Desirable: ?Less than 130 Borderline High: ??130-159 High: ? 160-189 Very High: ?Greater than or equal to 190 10/23/2018 8:00 EST 10/23/2018 8:00 EST [facility] - 10/23/2018 9:24 EST Does PT Have a Latex Allergy? NO us Osbaldo Dewitt NP CHEMISTRY & BLOOD GAS ORDERABL ES Final Result [facility] * BASIC METABOLIC PANEL (BMP) (10/23/2018 8:00 EST) [place]UN - [facility] 11 10 - 26 mg/dL 10/23/2018 9:23 [facility] CALCIUM - [facility] 9.9 8.5 - 10.5 mg/dL 10/23/2018 9:23 [facility] Chloride 100 96 - 110 mmol/L 10/23/2018 9:23 [facility] CO2 Total 27 22 - 32 mEq/L 10/23/2018 9:23 [facility] CREATININE 0.63 0.52 - 1.04 mg/dL 10/23/2018 9:23 [facility] eGFR >60 10/23/2018 9:23 [facility] Comment: Chronic renal impairment is defined as GFR <60 Multiply result by 1.210 for patients. eGFR calculated using the IDMS-traceable MDRD Study Equation. ??(effective 08/08/2014) Anion Gap 15 0 - 18 10/23/2018 9:23 [facility] GLUCOSE - [facility] 97 70 - 100 mg/dL 10/23/2018 9:23 [facility] Potassium 4.1 3.5 - 5.0 mEq/L 10/23/2018 9:23 [facility] Sodium 142 136 - 145 mEq/L 10/23/2018 9:23 [facility] 10/23/2018 8:00 EST 10/23/2018 8:00 EST Narrative [facility] - 10/23/2018 9:23 EST Does PT Have a Latex Allergy? NO us Osbaldo Dewitt NP CHEMISTRY & BLOOD GAS ORDERABL ES Final Result [facility] documented in this encounter Visit Diagnoses Not on filedocumented in this encounter Care Teams Yacht Hand Relationship Specialty Start Date End Date Kesha Dover MD PCP - General 07/18/14 documented as of this encounter
--- OUTSIDE RECORDS SUMMARY | 2024-10-22 01:06 | XMS_ITS | Encounter Summary ---
Author Organization [facility] Address [address] [place] [address] Care Team Providers Care Copy Chaser Name Role Phone Osbaldo Dewitt NP Primary Care Provider [phone] Reason for Visit * Reason Comments Hypertension Hyperlipidemia Encounter Details Date Type Department Care Team (Late st Contact Info) Description 11/09/2019 10:[address] [facility] [address] [place] [address] Osbaldo Dewitt NP [address] [place] [address] Hypertension, unspecified type (Primary Dx); [...] this encounter Progress Notes * Osbaldo Dewitt, EXHAUST MACHINE OPERATOR - 11/09/2019 1040 EST [facility] Primary Care Subjective: Chief Complaint(s): Hypertension and Hyperlipidemia HPI: The history is provided by the patient. No adult manager was used. Hypertension Managed with hydrochlorothiazide/losarten 25 [...] pt prefers every 5 years. Managed on [id number] QD. Rare breakthrough sxs. Psychiatry Hx of [...] [facility] [place] [address] Osbaldo Dewitt NP [address] [place] [address] documented as of this encounter Visit Diagnoses [...] daily. added in this encounter Care Teams Copy Chaser Relationship Specialty Start Date End Date Osbaldo Dewitt NP [address] [place], [place] [phone] PCP - General 09/01/19 documented as of this encounter
--- OUTSIDE RECORDS SUMMARY | 2024-10-22 01:06 | XMS_ITS | Encounter Summary ---
Author Organization [facility] Address [address] [place] [address] Care Team Providers Care Road Mechanic Name Role Phone Kesha Dover MD Primary Care Provide r Unavailable Encounter Details Date Type Department Care Team (Late st Contact Info) Description 07/08/2016 Historical Results Only [facility] Radiology Results [address] [place] [address] Osbaldo Dewitt NP [address] [place], [place] [address] Social History Tobacco Use Types Packs/Day Years [...] Info) Description 11/11/2024 15:30 EST Office Visit [facility] Integrative Family Medicine [facility] [address] [place], [place] [address] Osbaldo Dewitt NP [address] [place] [address] documented as of this encounter Procedures Procedure [...] will contact ? your patient directly. ? FLAVORING OIL FILTERER:kad ?Reported By: Chet De La O MD ? CC: ? Transcribed Date/Time: 07/09/2016 (924) ? Adult Day Care Worker: ANI ? Printed Date/Time: 03/19/2019 (5946) ? PAGE 1 ? Signed Report ? [...] is needed we willcontact your patient directly. FLAVORING OIL FILTERER:juliana Reported By: Chet De La O MD CC: Transcribed Date/Time: 07/09/2016 (924) Adult Day Care Worker: ANI Printed Date/Time: 03/19/2019 (8089) PAGE 1 Signed Report us Osbaldo Dewitt INVASIVE PHYSICIAN IMG MAMMOGRAPHY ORDERABLES Fin al Result documented in this encounter Visit Diagnoses Not on filedocumented in this encounter Care Teams Road Mechanic Relationship Specialty Start Date End Date Kesha Dover MD PCP - General 07/18/14 documented as of this encounter
--- OUTSIDE RECORDS SUMMARY | 2024-10-22 01:06 | XMS_ITS | Encounter Summary ---
Author Organization [facility] Address [address] [place] [address] Care Team Providers Care Gear Shaver Set Up Operator Name Role Phone Kesha Dover MD Primary Care Provide r Unavailable Encounter Details Date Type Department Care Team (Late st Contact Info) Description 11/16/2018 Historical Results Only [facility] Radiology Results [address] [place] [address] Osbaldo Dewitt NP [address] [place], [place] [address] Social History Tobacco Use Types Packs/Day Years [...] Info) Description 11/11/2024 15:30 EST Office Visit [facility] Integrative Family Medicine [facility] [address] [place], [place] [address] Osbaldo Dewitt NP [address] [place] [address] documented as of this encounter Procedures Procedure [...] MD ? CC: ? Transcribed Date/Time: 11/16/2018 (142) ? Core Extruder: ? Printed Date/Time: 03/29/2019 (9850) ? PAGE 1 ? Signed Report ? [...] Arnold MD CC: Transcribed Date/Time: 11/16/2018 (142) Core Extruder: Printed Date/Time: 03/29/2019 (0507) PAGE 1 Signed Report us Osbaldo Dewitt PITCH FILLER IMG MAMMOGRAPHY ORDERABLES Fin al Result documented in this encounter Visit Diagnoses Not on filedocumented in this encounter Care Teams Gear Shaver Set Up Operator Relationship Specialty Start Date End Date Kesha Dover MD PCP - General 07/18/14 documented as of this encounter
--- OUTSIDE RECORDS SUMMARY | 2024-10-22 01:06 | XMS_ITS | Encounter Summary ---
Author Organization [facility] Address [address] [place] [address] Care Team Providers Care Finish Carpenter Name Role Phone Osbaldo Dewitt NP Primary Care Provider [phone] Reason for Visit * Reason Comments Other Encounter Details Date Type Department Care Team (Late st Contact Info) Description 05/12/2020 Refill [facility] Family Medicine [address] [address] Osbaldo Dewitt SAP SENIOR DEVELOPER [address] [place] [address] Other Social History Tobacco Use [...] Office Visit [facility] Family [address] [phone] Osbaldo Dewitt NP [address] [place] [address] documented as of this encounter Visit Diagnoses Not on filedocumented in this encounter Discontinued Medications Medication Sig Discontinue Reason Start Date End Da te losartan-hydrochlorothia zide (HYZAAR) 100-25 mg per tablet TAKE ONE TABLET BY MOUTH EVERY DAY 02/03/2020 05/12/2020 documented as of this encounter Care Teams Finish Carpenter Relationship Specialty Start Date End Date Osbaldo Dewitt NP [address] [place] [address] PCP - General 09/01/19 documented as of this encounter
--- OUTSIDE RECORDS SUMMARY | 2024-10-22 01:06 | XMS_ITS | Encounter Summary ---
Author Organization [facility] Address [address] [place] [address] Care Team Providers Care Baggage And Mail Agent Name Role Phone Kesha Dover MD Primary Care Provide r Unavailable Encounter Details Date Type Department Care Team (Latest Contact Info) Description 11/13/2018 10:07 EST - 11/13/2018 23:59 EST Hospital Encounter [facility] [address] [place] [address] Kesha Dover MD Discharge Disposition: Home or [...] Code Departure Means Destination Home or Self [place] documented in this encounter Plan of Treatment Upcoming Encounters Date Type Department Care Team (Late st Contact Info) Description 11/11/2024 15:30 EST Office Visit [address] [address] Osbaldo Dewitt NP [address] [place], [place] [phone] documented as of this encounter Visit Diagnoses Not on filedocumented in this encounter Care Teams Baggage And Mail Agent Relationship Specialty Start Date End Date Kesha Dover MD PCP - General 07/18/14 documented as of this encounter
--- OUTSIDE RECORDS SUMMARY | 2024-10-22 01:06 | XMS_ITS | Encounter Summary ---
Author Organization [facility] Address [address] [place] [address] Care Team Providers Care Fluxer Name Role Phone Kesha Dover MD Primary Care Provide r Unavailable Encounter Details Date Type Department Care Team (Latest Contact Info) Description 11/20/2017 23:48 EST - 11/20/2017 23:59 EST Hospital Encounter [facility] [address] [place] [address] Kesha Dover MD Discharge Disposition: Home or [...] Code Departure Means Destination Home or Self Shelter documented in this encounter Plan of Treatment Upcoming Encounters Date Type Department Care Team (Late st Contact Info) Description 11/11/2024 15:30 EST Office Visit [address] [address] Osbaldo Dewitt NP [address] [place], [place] [phone] documented as of this encounter Visit Diagnoses Not on filedocumented in this encounter Care Teams Fluxer Relationship Specialty Start Date End Date Kesha Dover MD PCP - General 07/18/14 documented as of this encounter
--- OUTSIDE RECORDS SUMMARY | 2024-10-22 01:06 | XMS_ITS | Encounter Summary ---
Author Organization [facility] Address [address] [place] [address] Care Team Providers Care Distribution Specialist Name Role Phone Osbaldo Dewitt NP Primary Care Provider [phone] Reason for Visit * Reason Comments Other Encounter Details Date Type Department Care Team (Late st Contact Info) Description 09/28/2019 Refill [facility] Integrative Family Medicine [address] [address] Osabldo Dewitt NP [address] [place] [address] Other Social History Tobacco Use [...] Office Visit [facility] Family Medicine [address] [address] Osbaldo Dewitt NP [address] [place] [address] documented as of this encounter Visit Diagnoses Diagnosis Gastroesophageal reflux disease, esophagitis presence not specified- Primary documented in this encounter Care Teams Distribution Specialist Relationship Specialty Start Date End Date Osbaldo Dewitt NP [address] [place] [address] PCP - General 09/01/19 documented as of this encounter
--- OUTSIDE RECORDS SUMMARY | 2024-10-22 01:06 | XMS_ITS | Encounter Summary ---
Author Organization [facility] Address [address] [place] [address] Care Team Providers Care Lay Ups Assembler Name Role Phone Kesha Dover MD Primary Care Provide r Unavailable Encounter Details Date Type Department Care Team (Late st Contact Info) Description 09/05/2016 Historical Results Only [facility] - Main [place] [address] [place], [place] [phone] Bird Watkins MD Social History Tobacco Use [...] Info) Description 11/11/2024 15:30 EST Office Visit [facility] Integrative Family Medicine [facility] [address] [place], [place] [phone] Osbaldo Dewitt, BLENDING TANK TENDER HELPER [address] [place], [place] [phone] documented as of this encounter Procedures Procedure Name Priority Date/Time Associated Diagnosis Comments SURGICAL PATHOLOGY Routine 09/05/2016 12 :32 EST documented in this encounter Results * SURGICAL PATHOLOGY (09/05/2016 12:32 EST) 09/05/2016 12:3 2 EST 09/05/2016 12:32 EST Narrative [facility] - 09/06/2016 13:05 EST ----- ------- Name: SANDIE DUVALL ? : 58 ?Age/Sex: 58/F ?Unit#: [id number] ? Loc: END ? Status: DEP CLI ?? Reg Date: 09/05/16 ? Pt.Phone Number: ? ----- ------- Specimen: [id number] ? STATUS: SOUT ?Spec Date:09/05/16 ? Physician Copies: ?Bird Watkins MD ?? Tissues: A ?? Endoscopy specimen (SPLENIC FLEXURE) ? Osbaldo Dewitt ? CPT: 61916 ?? Units: ??1 ?FINAL DIAGNOSIS ? COLON, [...] confirmed the above diagnosis. Test Performed by [facility], [address] [place] [address] Shampoo Technician: Ewa Glover MD PHD ----- ------- us Bird Watkins MD PATHOLOGY ORDERABLES Final Re sult [facility] documented in this encounter Visit Diagnoses Not on filedocumented in this encounter Care Teams Lay Ups Assembler Relationship Specialty Start Date End Date Kesha Dover MD PCP - General 07/18/14 documented as of this encounter
--- OUTSIDE RECORDS SUMMARY | 2024-10-22 01:06 | XMS_ITS | Encounter Summary ---
Author Organization [facility] Address [address] [place] [address] Care Team Providers Care Bending Roll Operator Name Role Phone Osbaldo Dewitt RIGGING UP WORKER Primary Care Provider [phone] Encounter Details Date Type Department Care Team (Late st Contact Info) Description 10/02/[address] [facility] Adult Primary Care - [address] [address] Ambulatory, Drop Board Worker Social History Tobacco Use Types Packs/Day Years [...] [facility] Integrative Family Medicine [facility] [address] [place], [place] [phone] Osbaldo Dewitt, RIGGING UP WORKER [address] [place] [address] documented as of this encounter [...] 1 added in this encounter Care Teams Bending Roll Operator Relationship Specialty Start Date End Date Osbaldo Dewitt NP [address] [place] [address] PCP - General 09/01/19 documented as of this encounter
--- OUTSIDE RECORDS SUMMARY | 2024-10-22 01:06 | XMS_ITS | Encounter Summary ---
Author Organization [facility] Address [facility] [place] [address] Care Team Providers Care Staff Therapist Name Role Phone Osbaldo Dewitt Yaron PAGE Primary Care Provider [phone] Encounter Details Date Type Department Care Team (Late st Contact Info) Description 12/30/2023 Orders [place] [address] Joan Sow PA [facility] ORTHOPAED[facility] [place] [address] Social History Tobacco Use Types Packs/Day Years [...] on filedocumented in this encounter Care Teams Staff Therapist Relationship Specialty Start Date End Date Osbaldo Dewitt APRN [address] [place] [address] PCP - General Family Medicine 12/31/22 documented as of this encounter
--- OUTSIDE RECORDS SUMMARY | 2024-10-22 01:06 | XMS_ITS | Encounter Summary ---
Author Organization [facility] Address [address] [place] [address] Care Team Providers Care System Manager Name Role Phone Kesha Dover MD Primary Care Provide r Unavailable Encounter Details Date Type Department Care Team (Latest Contact Info) Description 07/08/2016 12:36 EDT - 07/08/2016 23:59 EDT Hospital Encounter [facility] [address] [place] [address] Kesha Dover MD Discharge Disposition: Home or [...] Code Departure Means Destination Home or Self [facility] documented in this encounter Plan of Treatment Upcoming Encounters Date Type Department Care Team (Late st Contact Info) Description 11/11/2024 15:30 EST Office Visit [facility] [address] [place], [place] [phone] Osbaldo Dewitt NP [address] [place] [address] documented as of this encounter Visit Diagnoses Not on filedocumented in this encounter Care Teams System Manager Relationship Specialty Start Date End Date Kesha Dover MD PCP - General 07/18/14 documented as of this encounter
--- OUTSIDE RECORDS SUMMARY | 2024-10-22 01:06 | XMS_ITS | Clinical Summary ---
Author Organization [facility] Address [facility] [place] [address] Care Team Providers Care Acetylene Gas Compressor Name Role Phone Esdras Osbaldo Piña APRN Primary Care Provider [phone] Allergies Active Allergy Reactions Criticality Noted Date [...] 02/03/2023 Active fluticasone propionate (Flonase) 50 mcg/actuation [place], Suspension 2 sprays by Nasal route Once [...] g vaginally. Twice weekly prn 12/07/2020 Active nhafooz-pcig-dfjff-oreg -capryl 100 mg-150 mg- 50 mg-150 mg [...] Screening (HgbA1C or Glucose) 1999 Pneumoccocal Vaccine: 50+ (1 of 1 - PCV) 2009 Zoster vaccine (1 of 2) 2009 Advance Directive 2014 Bone Density Scan 2024 Covid-19 Vaccine (1 - season) 2024 Influenza (Flu) vaccine (1 o f 1 - Influenza standard series) 06/06/2024 Medical Devices Implanted Type Area Buttermaker Continuous Churn Device Identifier Shelf Expiration Date Model / Serial / Lot Cement Bone Medium Viscosity 20gm Half Dose Pmma Cmw ([id number]) - [id number] Implanted:Qty : 1 on 03/11/2023 by Christine Colby MD at [facility] IMPLANTS Left: Shoulder [facility] [facility] [id number] 08/05/2025 3322-020 / / [id number] Component Glenoid Sz 4 4 Peg Modular [place] (4715808) (Autoreq) - [id number] Implanted:Qty : 1 on 03/11/2023 by Christine Colby MD at [facility] IMPLANTS Left: Shoulder CHANDLER BIOMET - CHANDLER BIO [id number] 01/13/2028 [id number] / / [id number] Component Glenoid Modular Post [place] Trabecular Metal (3008127) (Autoreq) - [id number] Implanted:Qty : 1 on 03/11/2023 by Christine Colby MD at [facility] IMPLANTS Left: Shoulder CHANDLER BIOMET - CHANDLER BIO [id number] 12/07/2032 [id number] / / [id number] Humeral Anchr Shldr 26k76xi Prsft Stem Free Med Ti Sidus (1147552) (Autoreq) - [id number] Implanted:Qty : 1 on 03/11/2023 by Christine Colby MD at [facility] IMPLANTS Left: Shoulder CHANDLER BIOMET - CHANDLER BIO [id number] 11/30/2031 01.94762.12 0 / / [id number] Head Humeral Shoulder 62p31zi Stem Free Cocr Sidus (6505688) (Autoreq) - [id number] Implanted:Qty : 1 on 03/11/2023 by Christine Colby MD at [facility] IMPLANTS Left: Shoulder CHANDLER BIOMET - CHANDLER BIO [id number] 07/25/2031 01.54918.42 0 / / [id number] Humeral Anchr Shldr 20i89fs Prsft Stem Free Med Ti Sidus (4422236) (Autoreq) - [id number] Implanted:Qty : 1 on 12/09/2023 by Christine Colby MD at [facility] IMPLANTS Right: Shoulder CHANDLER BIOMET - CHANDLER BIO [id number] 11/21/2032 01.39656.12 0 / / [id number] Head Humeral Shoulder 64r69gp Stem Free Sidus (4625983) (Autoreq) - [id number] Implanted:Qty : 1 on 12/09/2023 by Christine Colby MD at [facility] IMPLANTS Right: Shoulder CHANDLER BIOMET - CHANDLER BIO [id number] 03/14/2033 [id number] / / [id number] Cement Bone Medium Viscosity 20gm Half Dose Pmma Cmw (0246024) - [id number] Implanted:Qty : 1 on 12/09/2023 by Christine Colby MD at [facility] IMPLANTS Right: Shoulder [employer] [facility] [id number] 04/04/2026 3322-020 / / [id number] Component Glenoid Sz 4 4 Peg Modular [place] (2464744) (Autoreq) - [id number] Implanted:Qty : 1 on 12/09/2023 by Christine Colby MD at [facility] IMPLANTS Right: Shoulder CHANDLER BIOMET - CHANDLER BIO [id number] 11/06/2028 [id number] / / [id number] Component Glenoid Modular Post [place] Trabecular Metal (8675289) (Autoreq) - [id number] Implanted:Qty : 1 on 12/09/2023 by Christine Colby MD at [facility] IMPLANTS Right: Shoulder CHANDLER BIOMET - CHANDLER BIO [id number] 09/22/2033 [id number] / / [id number] Explanted Type Area Buttermaker Continuous Churn Device Identifier Shelf Expiration Date Model / Serial / Lot Pin Fix [id number] Threaded Sgl End Ss Kay (0988900) (Autoreq) - [id number] Explanted:Qt y: 1 on 03/11/2023 by Christine Colby MD at [facility] IMPLANTS Left: Shoulder CHANDLER BIOMET - CHANDLER BIO [id number] 01/01/2033 [id number] / / [id number] Advance Directives * Full Code (Latest Code Status on File) Date Activated Date Inactivated Comments 03/11/2023 9:21 AM 12/09/2023 5:43 AM Question Answer Comments Does patient have capacity to make decision: Yes Care Teams Acetylene Gas Compressor Relationship Specialty Start Date End Date Osbaldo Dewitt APRN [address] [place] [phone] PCP - General Family Medicine 12/31/22
--- OUTSIDE RECORDS SUMMARY | 2024-10-22 01:06 | XMS_ITS | Encounter Summary ---
Author Organization [facility] Address [address] [place] [address] Care Team Providers Care Incident Coordinator Name Role Phone Kesha Dover MD Primary Care Provide r Unavailable Encounter Details Date Type Department Care Team (Late st Contact Info) Description 04/20/2019 Historical Results Only [facility] - Main [place] [address] [place] [address] Osbaldo Dewitt NP [address] [place], [place] [phone] Social History Tobacco Use Types Packs/Day Years [...] Office Visit [facility] Integrative Family Medicine [facility] [address] [place] [address] Osbaldo Dewitt NP [address] [place] [address] documented as of this encounter Procedures Procedure Name Priority Date/Time Associated Diagnosis Comments PAP TEST Routine 04/20/2019 16:37 EDT HPV DNA DETECTION WITH GENOTYPING, PCR Routine 04/20/2019 11:59 EDT documented in this encounter Results * PAP TEST (04/20/2019 16:37 EDT) 04/20/2019 16:3 7 EDT 04/20/2019 16:39 EDT Narrative [facility] - 04/27/2019 15:39 EDT ----- ------- Name: SANDIE DUVALL Mehnaz ? : 58 ?Age/Sex: 59/F ?Unit#: [id number] ? Loc: MHC ? Status: REG POV ?? Reg Date: 04/20/19 ? Pt.Phone Number: ? ----- ------- Specimen: [id number] ?STATUS: SOUT ?Spec Date:04/20/19 ? Physician Copies: ?Osbaldo Dewitt ? Tissues: ? VAG/CERV PAP ? CPT: 57896 ?? Units: ??1 ----- ------- ? CYTOLOGY [...] DNA test. ----- ------- ORDER QUERIES: LMP: 2009 ?- 2008 ? N Post ? N [...] confirmed the above diagnosis. Test Performed by [facility], [address] [address] Sap Project Manager: Ewa Glover MD PHD ----- ------- Osbaldo Dewitt NP PATHOLOGY ORDERABLES Final Res ult Performing Organization Address City/[facility]/ZIP Co de Phone Number [facility] * HUMAN PAPILLOMAVIRUS (HPV) DETECTION-HIGH RISK TYPES (04/20/2019 11:59 EDT) HPV other High Risk types, PCR NEG 04/22/2019 15:47 EDT [facility] Comment: Negative for HPV types 16, 18, 31, 33, 35, 39, 45, 51, 52, 56, 58, 59, 66, 68. Method: Cervista HPV HR (High Risk) DNA test. 04/20/2019 11:5 9 EDT 04/21/2019 12:00 EDT Osbaldo Dewitt NP MICROBIOLOGY - GENERAL ORDERAB LES Final Result Performing Organization Address City/[facility] Co de Phone Number [facility] documented in this encounter Visit Diagnoses Not on filedocumented in this encounter Care Teams Incident Coordinator Relationship Specialty Start Date End Date Kesha Dover MD PCP - General 07/18/14 documented as of this encounter
--- OUTSIDE RECORDS SUMMARY | 2024-10-22 01:06 | XMS_ITS | Encounter Summary ---
Author Organization [facility] Address [facility] [place] [address] Care Team Providers Care Staff Analyst Name Role Phone Osbaldo Dewitt CAMILO Primary Care Provider [phone] Encounter Details Date Type Department Care Team (Latest Contact Info) Description 01/27/2024 7:28 AM EDT - 01/27/2024 11:59 PM EDT Hospital Encounter XRay at [address] [place] [address] Christine Colby MD [facility] [place] [address] s/p right anatomic stemless TSA, 12/09/23 (Dr [...] 1,000 mg by mouth 2 times daily. ijribro-nqwc-ayltw-oreg-ca pryl 100 mg-150 mg- 50 mg-150 mg Capsule Take by mouth. Just tumeric venlafaxine XR (Effexor-XR) 37.5 mg ER 24 hr capsule Take 37.5 mg by mouth daily. 02/03/2023 omeprazole (PriLOSEC) [address] capsule Take 20 mg by mouth nightly. 01/31/2023 hydroCHLOROthiazide (Hydrodiuril) 25 mg tablet Take 25 mg by mouth daily. 02/03/2023 fluticasone propionate (Flonase) 50 mcg/actuation [place], Suspension 2 sprays by Nasal route Once [...] (Generic) (01/27/2024 7:47 AM EDT) WORKSTATION ID [id number] [facility] Anatomical Region Laterality Modality Shoulder Bilateral Digital [...] who have questions please contact the health childcare administrator that requested your imaging first. ? Narrative [...] spine degeneration is partially included in the ogedo-jw-kluo. Visualized lung mensah are clear. Procedure Note [...] Cervicothoracic spine degeneration is partially included in eibkynor-cz-jiai. Visualized lung mensah are clear. IMPRESSION Bilateral [...] patients who have questions please contactthe health childcare administrator that requested your imaging first. Christine Colby MD IMG DX ORDERABLES documented in this encounter Visit Diagnoses Diagnosis s/p right anatomic stemless TSA, 12/09/23 (Dr Colby) s/p left anatomic stemless TSA, 03/11/23 (Dr Colby) documented in this encounter Care Teams Staff Analyst Relationship Specialty Start Date End Date Osbaldo Dewitt APRN [address] [place] [phone] PCP - General Family Medicine 12/31/22 documented as of this encounter
--- OUTSIDE RECORDS SUMMARY | 2024-10-22 01:06 | XMS_ITS | Encounter Summary ---
[place] [address] Care Team Providers Care Yield Loss Inspector Name Role Phone Esdras, Osbaldojerrica Piña APRN Primary Care Provider [phone] Encounter Details Date Type Department Care Team (Late st Contact Info) Description 12/26/2023 [place] [address] Eric Damon MD Social History [...] on filedocumented in this encounter Care Teams Yield Loss Inspector Relationship Specialty Start Date End Date Osbaldo Dewitt APRN [address] [place] [phone] PCP - General Family Medicine 12/31/22 documented as of this encounter
--- OUTSIDE RECORDS SUMMARY | 2024-10-22 01:06 | XMS_ITS | Encounter Summary ---
Author Organization [facility] Address [address] [place] [address] Care Team Providers Care Screenplay Writer Name Role Phone Kesha Dover MD Primary Care Provide Osbaldo Pinzon NP Primary Care Provider [phone] Encounter Details Date Type Department Care Team (Late st Contact Info) Description 05/05/2014 Historical Results Only [facility] - Main [place] [address] [place], [place] [phone] Lesia Braden APRN [address] [place] [address] Social History Tobacco Use Types [...] Info) Description 11/11/2024 15:30 EST Office Visit [facility] Integrative Family Medicine [facility] [address] [place], [place] [phone] Osbaldo Dewitt, NUMERICAL CONTROL LATHE OPERATOR [address] [place] [address] documented as of this encounter Procedures Procedure Name Priority Date/Time Associated Diagnosis Comments PAP TEST Routine 05/05/2014 9:57 EDT documented in this encounter Results * PAP TEST (05/05/2014 9:57 EDT) 05/05/2014 9:57 EDT 05/06/2014 9:57 EDT Narrative [facility] - 05/10/2014 8:58 EDT ----- ------- Name: SANDIE DUVALL ? : [birth year] ?Age/Sex: 59/F ?Unit#: [id number] ? Loc: MHC ? Status: REG POV ?? Reg Date: 05/05/14 ? Pt.Phone Number: ? ----- ------- Specimen: [id number] ?STATUS: SOUT ?Spec Date:05/05/14 ? Physician Copies: ?Lesia Braden Tissues: ? Cervical/Endo Pap ?Sharif Frances CPT: 03886 ?? Units: ??1 ----- ------- ? CYTOLOGY [...] confirmed the above diagnosis. Test Performed by [facility], [address] [place] [address] Volleyball Referee: Ewa Glover MD PHD ----- ------- us Lesia Braden APRN PATHOLOGY ORDERABLES Juan Antonio al Result [facility] documented in this encounter Visit Diagnoses Not on filedocumented in this encounter Care Teams Screenplay Writer Relationship Specialty Start Date End Date Kesha Dover MD PCP - General 07/18/14 Osbaldo Dewitt, NUMERICAL CONTROL LATHE OPERATOR [address] [place] [address] PCP - General 09/01/19 documented as of this encounter
--- OUTSIDE RECORDS SUMMARY | 2024-10-22 01:06 | XMS_ITS | Encounter Summary ---
Author Organization [facility] Address [address] [place] [address] Care Team Providers Care Rn Clinical Trials Name Role Phone Osbaldo Dewitt NP Primary Care Provider [phone] Reason for Visit * Reason Comments Other Encounter Details Date Type Department Care Team (Late st Contact Info) Description 10/15/2020 Refill [facility] Integr[facility] Family Medicine [facility] [address] [place] [address] Osbaldo Dewitt NP [address] [place] [address] Other Social History Tobacco Use [...] [facility] [address] [address] Osbaldo Dewitt NP [address] [place] [address] documented as of this encounter Visit Diagnoses Diagnosis Gastroesophageal reflux disease- Primary Esophageal reflux documented in this encounter Discontinued Medications Medication Sig Discontinue Reason Start Date End Da te omeprazole (PRILOSEC) 20 mg capsuleIndications:Gastr oesophageal reflux disease, esophagitis presence not specified TAKE ONE CAPSULE BY MOUTH AT BEDTIME 09/30/2019 10/16/2020 documented as of this encounter Care Teams Rn Clinical Trials Relationship Specialty Start Date End Date Osbaldo Dewitt NP [address] [place] [address] PCP - General 09/01/19 documented as of this encounter
--- OUTSIDE RECORDS SUMMARY | 2024-10-22 01:06 | XMS_ITS | Encounter Summary ---
Author Organization [facility] Address [address] [place] [address] Care Team Providers Care Director Of Market Intelligence Name Role Phone Osbaldo Dewitt NP Primary Care Provider Reason for Visit * Reason Comments Other Encounter Details Date Type Department Care Team (Late st Contact Info) Description 01/03/2020 Refill [facility] Family Medicine [address] [address] Osbaldo Dewitt NP [address] [place] [address] Other Social History Tobacco Use [...] Visit [facility] Integrative Family Medicine [address] [phone] Osbaldo Dewitt NP [address] [place] [phone] documented as of this encounter Visit Diagnoses Not on filedocumented in this encounter Discontinued Medications Medication Sig Discontinue Reason Start Date End Da te venlafaxine (EFFEXOR XR) 37.5 mg XR capsule Take 1 Cap by mouth daily. 11/26/2016 01/03/2020 documented as of this encounter Care Teams Director Of Market Intelligence Relationship Specialty Start Date End Date Osbaldo Dewitt NP [address] [place] [phone] PCP - General 09/01/19 documented as of this encounter
--- OUTSIDE RECORDS SUMMARY | 2024-10-22 01:06 | XMS_ITS | Encounter Summary ---
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
--- OUTSIDE RECORDS SUMMARY | 2024-10-22 01:06 | XMS_ITS | Encounter Summary ---
Author Organization [facility] Address [address] [place] [address] Care Team Providers Care Pararescue Manager Name Role Phone Osbaldo Dewitt NP Primary Care Provider [phone] Reason for Visit * Reason Onset Date Comments Medications Refill 11/15/2020 Encounter Details Date Type Department Care Team (Late st Contact Info) Description 11/15/2020 Refill [facility] Integrative Family Medicine [facility] [address] [place], [place] [phone] Grace Wright RN Medications Refill Social History [...] Info) Description 11/11/2024 15:30 EST Office Visit [facility] [address] [phone] Osbaldo Dewitt NP [address] [place] [address] documented as of this encounter Visit Diagnoses Diagnosis 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 once a week prn Reorder 06/04/2016 11/15/2020 documented as of this encounter Care Teams Pararescue Manager Relationship Specialty Start Date End Date Osbaldo Dewitt NP [address] [place] [address] PCP - General 09/01/19 documented as of this encounter
--- OUTSIDE RECORDS SUMMARY | 2024-10-22 01:06 | XMS_ITS | Encounter Summary ---
Author Organization [facility] Address [address] [place] [address] Care Team Providers Care Photographs Curator Name Role Phone Kesha Dover MD Primary Care Provide r Unavailable Encounter Details Date Type Department Care Team (Late st Contact Info) Description 10/25/2014 Results Only [facility] [phone] Lyudmila Contreras NP [address] [place] [address] Social History Tobacco Use Types [...] Info) Description 11/11/2024 15:30 EST Office Visit [facility] Integrative Family Medicine [facility] [address] [place], [place] [phone] Osbaldo Dewitt NP [address] [place] [address] (work) documented as of this encounter Procedures [...] ? SANDIE DUVALL ? Accession #: ? [id number] ? : ? 1960 (Age: 54) ??F [...] (collagen trapping) and areas of sclerosis. ??(Dr. Mckinney)/anastasian Document reviewed and electronically signed by: ZEUS [...] Noe 10/26/2014 09:18 AM End of Report [facility] 10/25/2014 9:00 EST 10/26/2014 9:00 EST us Lyudmila Contreras NP PATHOLOGY ORDERABLES Final Resu lt [facility] [address] [place] [address] documented in this encounter Visit Diagnoses Not on filedocumented in this encounter Care Teams Photographs Curator Relationship Specialty Start Date End Date Kesha Dover MD PCP - General 07/18/14 documented as of this encounter
--- OUTSIDE RECORDS SUMMARY | 2024-10-22 01:06 | XMS_ITS | Encounter Summary ---
Author Organization [facility] Address [address] [place] [address] Care Team Providers Care Automotive Parts Advisor Name Role Phone Kesha Dover MD Primary Care Provide r Unavailable Encounter Details Date Type Department Care Team (Late st Contact Info) Description 07/02/2017 Historical Results Only [facility] - Main [place] [address] [place] [address] Osbaldo Dewitt NP [address] [place], [place] [phone] Social History Tobacco Use Types Packs/Day Years [...] Info) Description 11/11/2024 15:30 EST Office Visit [facility] Integrative Family Medicine [facility] [address] [place] [address] Osbaldo Dewitt NP [address] [place] [address] documented as of this encounter Procedures Procedure Name Priority Date/Time Associated Diagnosis Comments COMPREHENSIVE METABOLIC PANEL (CMP) Routine 07/02/2017 8:38 EDT documented in this encounter Results * COMPREHENSIVE METABOLIC PANEL (CMP) (07/02/2017 8:38 EDT) Albumin % 3.6 3.4 - 5.0 g/dL 07/02/2017 9:50 [facility] ALKALINE PHOSPHATASE - [facility] 72 41 - 126 U/L 07/02/2017 9:50 [facility] BILIRUBIN TOTAL 0.4 0.0 - 1.0 mg/dL 07/02/2017 9:50 [facility] BUN - [facility] 13 7 - 18 mg/dL 07/02/2017 9:50 [facility] CALCIUM - [facility] 9.2 8.5 - 10.1 mg/dL 07/02/2017 9:50 [facility] Chloride 107 98 - 107 mEq/L 07/02/2017 9:50 [facility] CO2 Total 27 21 - 32 mEq/L 07/02/2017 9:50 [facility] CREATININE 0.61 0.5 - 1.3 mg/dL 07/02/2017 9:50 [facility] eGFR >60 07/02/2017 9:50 [facility] Comment: Chronic renal impairment is defined as GFR <60 Multiply result by 1.210 for patients. eGFR calculated using the IDMS-traceable MDRD Study Equation. ??(effective 08/08/2014) Anion Gap 8 5 - 15 07/02/2017 9:50 [facility] GLUCOSE - [facility] 92 70 - 100 mg/dL 07/02/2017 9:50 [facility] Potassium 4.0 3.5 - 5.0 mEq/L 07/02/2017 9:50 [facility] Sodium 142 135 - 145 mEq/L 07/02/2017 9:50 [facility] TOTAL PROTEIN - [facility] 7.3 6.4 - 8.2 gm/dl 07/02/2017 9:50 EDT [facility] SGOT/AST - [facility] 23 10 - 37 U/L 07/02/2017 9:50 EDT [facility] SGPT/ALT - [facility] 26 12 - 78 U/L 07/02/2017 9:50 EDT [facility] 07/02/2017 8:38 EDT 07/02/2017 8:38 EDT Narrative [facility] - 07/02/2017 9:50 EDT Does PT Have a Latex Allergy? NO us Osbaldo Dewitt NP CHEMISTRY & BLOOD GAS ORDERABL ES Final Result [facility] documented in this encounter Visit Diagnoses Not on filedocumented in this encounter Care Teams Automotive Parts Advisor Relationship Specialty Start Date End Date Kesha Dover MD PCP - General 07/18/14 documented as of this encounter
--- OUTSIDE RECORDS SUMMARY | 2024-10-22 01:06 | XMS_ITS | Encounter Summary ---
Author Organization [facility] Address [address] [place] [address] Care Team Providers Care Technical Marketing Engineer Name Role Phone Kesha Dover MD Primary Care Provide Osbaldo Pinzon NP Primary Care Provider [phone] Encounter Details Date Type Department Care Team (Late st Contact Info) Description 07/07/2014 Historical Results Only [facility] - Main [place] [address] [place], [place] [phone] Lesia Braden APRN [address] [place] [phone] Social History Tobacco Use Types [...] Visit [facility] Integrative Family Medicine [facility] [address] [place], [place] [phone] Osbaldo Dewitt, LABORER ADJUSTABLE STEEL JOIST [address] [place], [place] [phone] documented as of this encounter Procedures Procedure Name Priority Date/Time Associated Diagnosis Comments SURGICAL PATHOLOGY Routine 07/07/2014 documented in this encounter Results * SURGICAL PATHOLOGY (07/07/2014) 07/07/2014 07/07/2014 14: 00 EDT Narrative [facility] - 07/08/2014 11:55 EDT PREOP LICHEN SCLEROSIS Procedure: 6-0 LEFT VULVAR PUNCH BX Tissue Removed VULVAR PUNCH BX Clinical Hx: ITCHING BURNING VULVA X 1 YR, DEC MARKINGS ----- ------- Name: SANDIE DUVALL ? : [birth year] ?Age/Sex: 59/F ?Unit#: [id number] ? Loc: MHC ? Status: REG POV ?? Reg Date: 07/07/14 ? Pt.Phone Number: ? ----- ------- Specimen: [id number] ? STATUS: SOUT ?Spec Date:07/07/14 ? Physician Copies: ?Lesia Braden Tissues: A ?? Female Reproductive System (VULVA) ? CPT: 98368 ?? Units: ??1 ?FINAL DIAGNOSIS ? Vulva, [...] confirmed the above diagnosis. Test Performed by [facility], [address] [place] [id number] Vocational Training Teacher: Ewa Glover MD PHD ----- ------- us Lesia Braden APRN PATHOLOGY ORDERABLES Fin al Result [facility] documented in this encounter Visit Diagnoses Not on filedocumented in this encounter Care Teams Technical Marketing Engineer Relationship Specialty Start Date End Date Kesha Dover MD PCP - General 07/18/14 Osbaldo Dewitt LABORER ADJUSTABLE STEEL JOIST [address] [place] [address] PCP - General 09/01/19 documented as of this encounter
--- OUTSIDE RECORDS SUMMARY | 2024-10-22 01:06 | XMS_ITS | Encounter Summary ---
Author Organization [facility] Address [facility] [place] [address] Care Team Providers Care Middle Card Tender Name Role Phone Osbaldo Dewitt APRN Primary Care Provider [phone] Encounter Details Date Type Department Care Team [...] on filedocumented in this encounter Care Teams Middle Card Tender Relationship Specialty Start Date End Date Osbaldo Dewitt APRN [address] [place] [phone] PCP - General Family Medicine 12/31/22 documented as of this encounter
--- OUTSIDE RECORDS SUMMARY | 2024-10-22 01:07 | XMS_ITS | Encounter Summary ---
Author Organization [facility] Address [facility] [place] [address] Care Team Providers Care Safety And Occupational Health Manager Name Role Phone Osbaldo Dewitt APRN Primary Care Provider [phone] Encounter Details Date Type Department Care Team [...] on filedocumented in this encounter Care Teams Safety And Occupational Health Manager Relationship Specialty Start Date End Date Osbaldo Dewitt APRN [address] [place] [phone] PCP - General Family Medicine 12/31/22 documented as of this encounter
--- OUTSIDE RECORDS SUMMARY | 2024-10-22 01:07 | XMS_ITS | Encounter Summary ---
Author Organization [facility] [place] [address] Care Team Providers Care Adult Care Manager Name Role Phone Osbaldo Dewitt APRN Primary Care Provider [phone] Reason for Visit * Consultation (Routine) - Closed Specialty Diagnoses / Procedures Referred By Chance le Referred To Contact Rheumatology Diagnoses Glenohumeral arthritis, left Synovitis Rosalee Powers PA [facility] [place] [address] [facility] Rheumatology [address] [place] [phone] Referral ID Status Reason Start Date Expiration Date V isits Requested Visits Authorized [id number] Closed Consult, Test & Treat 03/25/2023 03/24/2024 1 1 Encounter Details Date Type Department Care Team (Latest Contact Info) Description 05/06/2023 11:00 AM EDT Office [place] [phone] Remi Schmitt MD [facility] [place] [address] s/p left anatomic stemless TSA, [...] records available at the time of the [facility] appointment with in the medical record and [...] histories were reviewedand updated as appropriate within [facility]. Physical Exam: BP 131/72 (BP Location (NBP): [...] Bunion documented in this encounter Care Teams Adult Care Manager Relationship Specialty Start Date End Date Osbaldo Dewitt APRN [address] [place] [phone] PCP - General Family Medicine 12/31/22 documented as of this encounter
--- OUTSIDE RECORDS SUMMARY | 2024-10-22 01:07 | XMS_ITS | Encounter Summary ---
Author Organization [facility] [place] [address] Care Team Providers Care Organ Pipe Maker Metal Name Role Phone EsdrasOsbaldo weston Yaron PAGE Primary Care Provider [phone] Reason for Visit * Auth/Cert (Routine) Specialty Diagnoses / Procedures Referred By Chance t Referred To Contact Diagnoses shoulder arthritis Procedures PRO ARTHROPLASTY GLENOHUMERAL JOINT TOTAL SHOULDER PRO REPAIR BICEPS LONG TENDON TOTAL SHOULDER ARTHROPLASTY (WRVU 22.13) MODIFIER BEACH CHAIR SCHLEIN TENODESIS,BICEPS TENDON (PROXIMAL) (WRVU 10.17) Airam Colyb MD [facility] [place] [address] [facility] Referral ID Status Reason Start Date Expiration Date Visits Re quested Visits Authorized [id number] 1 1 Encounter Details Date Type Department Care Team (Latest Contact Info) Description 03/11/2023 6:17 AM EDT - 03/11/2023 11:58 AM EDT Hospital Encounter [place] [address] Airam Colby MD [facility] [place] [address] Discharge Disposition: Home Social History Tobacco Use [...] bowel movement. You can also take an bowy-yow-phqgfif medication, Miralax if needed tocombat constipation. 2. [...] air or lightly covered. Call your doctor ([phone]) if you develop: Fever greater than 100.5 Severe nausea or vomiting Increasing pain that is not controlled by pain medications Increasing redness, swelling, or drainage from incisions Change in sensation Misc: Remember that ICE and elevation are very important to decrease swelling and control pain. Youshould use the ICE for 20-30 minutes at a time. FOLLOW-UP APPOINTMENTS: You will have follow-up appointments at [facility] as indicated below in Future Appointment and Orders. Future Appointments Date Time Provider Department Center 03/25/2023 10:00 AM Rosalee Powers PA [facility] ORTH 3A [facility] If you have questions [...] Sig Dispensed Refills Start Date End Date xapocio-tvor-uwtou-oreg -capryl 100 mg-150 mg- 50 mg-150 mg Capsule Take by mouth. Just tumeric venlafaxine XR (Effexor-XR) 37.5 mg ER 24 hr capsule Take 37.5 mg by mouth daily. 02/03/2023 omeprazole (PriLOSEC) [address] capsule Take 20 mg by mouth nightly. 01/31/2023 hydroCHLOROthiazide (Hydrodiuril) 25 mg tablet Take 25 mg by mouth daily. 02/03/2023 fluticasone propionate (Flonase) 50 mcg/actuation [place], Suspension 2 sprays by Nasal route Once [...] Admission Medication Sig Dispense Refill Last Dose pmzavph-tvds-xyuak-oreg-capryl 100 mg-150 mg- 50 mg-150 mg Capsule Take by mouth. 03/09/2023 venlafaxine XR (Effexor-XR) 37.5 mg ER 24 hr capsule 03/11/2023 at 0430 omeprazole (PriLOSEC) [address] capsule Take 20 mg by mouth nightly. 03/09/2023 losartan (Cozaar) 100 mg tablet Take 100 mg by mouth daily. 03/10/2023 hydroCHLOROthiazide (Hydrodiuril) 25 mg tablet 03/10/2023 at 0430 fluticasone propionate (Flonase) 50 mcg/actuation [place], Suspension 2 sprays by Nasal route Once [...] arthroplasty. Elijah Lugo MD Orthopaedic Surgery Pager: [phone] Attending addendum: The preceeding portion of this note was written by Dr. Lugo. I personally saw and evaluated the patient at the bedside and I agree with the assessment and plan documented above. Airam Colby M.D., M.S. Professor of Orthopaedic Surgery [facility] Department [place] [address] documented in this encounter Miscellaneous Notes * Op Note - Airam Colby MD - 03/11/2023 7:54 AM EDT [facility] Operative Note Patient Name: Sandie Manriquez : [id number] MR#: [id number] Case Date: 03/11/2023 Surgeon: Surgeon(s) and Role: * Airam Colby MD - Primary * Elijah Lugo MD - Resident - Assisting * Joan Sow PA - Physician Photo Tech Preoperative diagnosis: shoulder arthritis Postoperative diagnosis: shoulder [...] Used: Chandler Sidus TSA System with Chandler [place] Glenoid [place]: medium Head: 42x15 Glenoid: Size 4 with 4 peg configuration and center TM post Pre-operative Evaluation: The patient was identified in the preoperative holding area. After confirming that the left shoulder was the correct site of surgery with both the patient and the informed consent, a green bishop paiute wasplaced on the operative shoulder. The plan [...] EDT shoulder arthritis Repair Biceps Long Tendon (47932) Yes 03/11/2023 7:22 AM EDT shoulder arthritis MODIFIER BEACH CHAIR SCHLEIN Yes 03/11/2023 7:22 AM EDT shoulder arthritis Arthroplasty, Glenohumeral Joint Total Shoulder ([id number]) Yes 03/11/2023 7:22 AM EDT shoulder arthritis [...] who have questions please contact the health care director rn that requested your imaging first. ? Electronically signed by: Betty Abrams MD, [facility] ([phone]), at 03/11/2023 2:30 PM Narrative 03/11/2023 2:30 [...] patients who have questions please contactthe health care director rn that requested your imaging first. Electronically signed by: Betty Abrams MD, [facility]([phone]), at 03/11/2023 2:30 PM Airam Colby MD IMG DX ORDERABLES * Surgical Pathology Report (03/11/2023 8:24 AM EDT) Final Diagnosis [id number] ? Location: [facility]; [facility]; A The signing pathologist has (i) examined the relevant preparation(s) for the specimen(s) and (ii) rendered or confirmed the diagnosis(es). . 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 of Pathology, [place] [address] Glass Furnace Operator: Darion Andrew MD, FCAP, ??CLIA Certificate: [id number] DISCUSSION While non-specific, the presence of patchy lymphoplasmacytic inflammation could raise diagnostic consideration of rheumatoid arthritis, in the appropriate clinical context. Correlation with clinical and serologic studies is suggested. SPECIMEN(S) SUBMITTED A - synovium, excision (1) CLINICAL INFORMATION Shoulder arthritis SPECIMEN PROCESSING A - Labeled/Fixative: Synovium, fresh. Quantity/Size: Single, 3.0 x 2.1 x 0.6 cm. Tissue Description: Soft red papillary tissue. Sections/Processing: Skate Shop Attendant sections in 1 cassette labeled A1. ??aaw 03/13/2023 10:20 AM EDT [facility] SYNOVIUM BIOPSY SPECIMEN / Unknown 03/11/2023 8:24 AM EDT 03/11/2023 8:24 AM EDT Airam Colby MD PATHOLOGY/CYTOLOGY O NATHANIEL Performing Organization Address [facility] Co de Phone Number [facility] [address] [place] [address] * Specimen to Pathology (03/11/2023 8:24 AM EDT) AP Specimen 03/11/2023 8:24 AM EDT 03/11/2023 8:24 AM EDT Narrative [facility] - 03/11/2023 8:24 AM EDT Specimen requisition ordered. ??Separate Pathology report to follow Airam Colby MD PATHOLOGY/CYTOLOGY O NATHANIEL Performing Organization Address [facility]/ZIP Co de Phone Number [facility] [place] [address] * SCAN DOC: IMPLANTABLE DEVICES (03/11/2023 12:00 [...] patch. documented in this encounter Care Teams Organ Pipe Maker Metal Relationship Specialty Start Date End Date Osbaldo Dewitt APRN [address] [place] [phone] PCP - General Family Medicine 12/31/22 documented as of this encounter
--- OUTSIDE RECORDS SUMMARY | 2024-10-22 01:07 | XMS_ITS | Encounter Summary ---
Author Organization [facility] [place] [address] Care Team Providers Care Senior Sales Representative Name Role Phone Osbaldo Dewitt APRN Primary Care Provider [phone] Encounter Details Date Type Department Care Team (Late st Contact Info) Description 07/14/2023 External [place] [address] Aditya Boss MD [facility] [place] [address] Social History Tobacco Use Types Packs/Day Years [...] filedocumented in this encounter Care Teams Senior Sales Representative Relationship Specialty Start Date End Date Osbaldo Dewitt APRN [address] [place] [phone] PCP - General Family Medicine 12/31/22 documented as of this encounter
--- OUTSIDE RECORDS SUMMARY | 2024-10-22 01:07 | XMS_ITS | Encounter Summary ---
Author Organization [facility] [place] [address] Care Team Providers Care Assistant Finance Director Name Role Phone EsdrasOsbaldo weston Yaron PAGE Primary Care Provider [phone] Reason for Visit * Auth/Cert (Routine) Specialty Diagnoses / Procedures Referred By Chance t Referred To Contact Diagnoses shoulder arthritis Procedures PRO ARTHROPLASTY GLENOHUMERAL JOINT TOTAL SHOULDER PRO REPAIR BICEPS LONG TENDON TOTAL SHOULDER ARTHROPLASTY (WRVU 22.13) MODIFIER BEACH CHAIR SCHLEIN TENODESIS,BICEPS TENDON (PROXIMAL) (WRVU 10.17) Airam Colby MD [facility] [place] [address] [facility] Referral ID Status Reason Start Date Expiration Date Visits Re quested Visits Authorized [id number] 1 1 Encounter Details Date Type Department Care Team (Late st Contact Info) Description 12/09/2023 7:30 AM EST - 12/09/2023 10:30 AM EST [place] [address] Airam Colby MD [facility] [place] [address] TOTAL SHOULDER ARTHROPLASTY (WRVU 22.13) Social History [...] 24 hours, please call the Anesthesiology Department: [phone] Shortness of breath: If you have severe shortness of breath that seems to go on and on, please go to the nearest ER (emergency room). If a nerve block lasts longer than 48 hours, take action. If the nerve block does not wear off within 48 hours, please call the Anesthesiology Department: [phone] Protect the part of your body that [...] the Anesthesiology Department with concerns or questions: [phone] After hours: Call the hospital telegraph operator and ask for the anesthesiologist (titi oliveros) detention worker: [phone] Updated: 08/13/21Scopolamine Patch Discharge Instructions You are [...] Program 8a-5pm Friday-Friday. All other times, call [phone] and ask for the anesthesiologist detention worker. * Patient Instructions* Bird Corona MD - [...] bowel movement. You can also take an nlvw-iib-vgkbgcm medication, Miralax if needed tocombat constipation. 2. [...] air or lightly covered. Call your doctor ([phone]) if you develop: Fever greater than 100.5 [...] 1. You will have follow-up appointments at [facility] as indicated below in Future Appointment and Orders. Future Appointments Date Time Provider Department Center 12/26/2023 2:30 PM Joan Sow PA [facility] ORTH 3A [facility] If you have questions or concerns: Friday [...] 1,000 mg by mouth 2 times daily. hnwvpcx-ldei-llwrv-oreg-c vernell 100 mg-150 mg- 50 mg-150 mg Capsule Take by mouth. Just tumeric venlafaxine XR (Effexor-XR) 37.5 mg ER 24 hr capsule Take 37.5 mg by mouth daily. 02/03/2023 omeprazole (PriLOSEC) [address] capsule Take 20 mg by mouth nightly. 01/31/2023 hydroCHLOROthiazide (Hydrodiuril) 25 mg tablet Take 25 mg by mouth daily. 02/03/2023 fluticasone propionate (Flonase) 50 mcg/actuation [place], Suspension 2 sprays by Nasal route Once [...] 22.13) performed by Airam Colby MD at [facility] MAIN OR PRO REPAIR BICEPS LONG TENDON Left 03/11/2023 TENODESIS,BICEPS TENDON (PROXIMAL) (WRVU 10.17) performed by Airam Colby MD at [facility] MAIN OR Home Medications: Medications Prior [...] 5 mg by mouth Twice daily. 12/05/2023 whgrgow-idmp-knpqj-oreg-capryl 100 mg-150 mg- 50 mg-150 mg Capsule Take by mouth. Just tumeric 12/06/2023 fluticasone propionate (Flonase) 50 mcg/actuation [place], Suspension 2 sprays by Nasal route Once [...] M.S. Professor of Orthopaedic Surgery [facility] Department [place] [address] documented in this encounter Miscellaneous Notes * Op Note - Airam Colby MD - 12/09/2023 7:55 AM EST [facility] Operative Note Patient Name: Sandie Manriquez : [id number] MR#: [id number] Case Date: 12/09/2023 Surgeon: Surgeon(s) and Role: * Airam Colby MD - Primary * Bird Corona MD - Resident - Assisting * Joan Sow PA - Physician Freezer Person Preoperative diagnosis: shoulder pain Postoperative diagnosis: shoulder [...] Used: Chandler Sidus TSA System with Chandler [place] Glenoid [place]: medium Head: 44x16 Glenoid: Size 4 with 4 peg configuration and center TM post Pre-operative Evaluation: The patient was identified in the preoperative holding area. After confirming that the right shoulder was the correct site of surgery with both the patient and the informed consent, a green knik was placed on the operative shoulder. The [...] 8:32 AM EST Repair Biceps Long Tendon ([id number]) 12/09/2023 7:24 AM EST shoulder pain MODIFIER SIDUS SHOULDER CHANDLER BIOMET 12/09/2023 7:24 AM EST shoulder pain Arthroplasty, Glenohumeral Joint Total Shoulder ([id number]) 12/09/2023 7:24 AM EST shoulder pain TOTAL [...] who have questions please contact the health client care representative that requested your imaging first. ? Narrative [...] patients who have questions please contactthe health client care representative that requested your imaging first. Airam Colby MD IMG DX ORDERABLES * Surgical Pathology Report (12/09/2023 8:32 AM EST) Final Diagnosis [id number] ? Location: [facility]; [facility]; The signing pathologist has (i) examined the [...] MD, Simi Verified: ??12/12/2023 9:48 Performed at: ??-[facility] Dept. of Pathology, [place] [address] Commission Associate: Darion Andrew MD, FCAP, ??CLIA Certificate: [id number] SPECIMEN(S) SUBMITTED A - Right shoulder synovium, rule out ?? inflammatory ??stenosis, excision (1) CLINICAL INFORMATION s/p TSA Right shoulder synovium, rule out inflammatory stenosis SPECIMEN PROCESSING A - Labeled/Fixative : Right shoulder synovium, rule out inflammatory stenosis, fresh. Quantity/Size: Single, 3.2 x 2.1 x 1.0 cm. Tissue Description: Irregular fragment of pink-red fibrous tissue. Sections/Process ing: Dock Grader sections in 2 cassettes labeled A1-A2. ??pps 12/12/2023 9:48 AM EST [facility] SYNOVIUM BIOPSY SPECIMEN / Unknown 12/09/2023 8:32 AM EST 12/09/2023 8:32 AM EST Airam Colby MD PATHOLOGY/CYTOLOGY O NATHANIEL Performing Organization Address City/[facility]/ZIP Co de Phone Number [facility] [address] [place] [address] * Specimen to Pathology (12/09/2023 8:32 AM EST) AP Specimen 12/09/2023 8:32 AM EST 12/09/2023 8:32 AM EST Narrative [facility] - 12/09/2023 8:32 AM EST Specimen requisition ordered. ??Separate Pathology report to follow Airam Colby MD PATHOLOGY/CYTOLOGY O NATHANIEL Performing Organization Address City/[facility]/ZIP Co de Phone Number [facility] [place] [address] * SCAN DOC: IMPLANTABLE DEVICES (12/09/2023 12:00 [...] MD) documented in this encounter Care Teams Assistant Finance Director Relationship Specialty Start Date End Date Osbaldo Dewitt APRN [address] [place] [phone] PCP - General Family Medicine 12/31/22 documented as of this encounter
--- OUTSIDE RECORDS SUMMARY | 2024-10-22 01:07 | XMS_ITS | Encounter Summary ---
Author Organization [facility] Address [facility] [place] [address] Care Team Providers Care Printed Circuit Board Pcb Draftsman Name Role Phone EsdrasOsbaldo weston Yaron PAGE Primary Care Provider [phone] Reason for Visit * Reason Comments Follow Up Surgery 6-6-23 L TSA WOUN D CHECK Follow-up NXR 6-6-23 L TSA WOUND CHECK Encounter Details Date Type Department Care Team (Latest Contact Info) Description 05/21/2023 8:20 AM EDT Office [place] [address] Rosalee Powers PA [facility] [place] [address] Postoperative abscess involving suture Social History Tobacco [...] NAME: Sandie Manriquez AGE: 63 y.o. MR#: [id number] DATE OF VISIT: 05/21/2023 DATE OF SURGERY: [...] None obtained SURVEY RESPONSES: 04/25/2023 8:46 AM [facility] Non-surgical Followup Visit PROMIS-10 General Health Good [...] concerns. The above documentation was completed using Speakap voice recognition software. documented in this encounter Plan of Treatment Not on file documented as of this encounter Visit Diagnoses Diagnosis Postoperative abscess involving suture documented in this encounter Care Teams Printed Circuit Board Pcb Draftsman Relationship Specialty Start Date End Date Osbaldo Dewitt APRN [address] [place] [phone] PCP - General Family Medicine 12/31/22 documented as of this encounter
--- OUTSIDE RECORDS SUMMARY | 2024-10-22 01:07 | XMS_ITS | Encounter Summary ---
[facility] Organization [facility] [place] [address] Care Team Providers Care Tool Distributor Name Role Phone Osbaldo Dewitt Yaron PAGE Primary Care Provider [phone] Reason for Visit * Auth/Cert (Routine) Specialty Diagnoses / Procedures Referred By Chance t Referred To Contact Diagnoses shoulder arthritis Procedures PRO ARTHROPLASTY GLENOHUMERAL JOINT TOTAL SHOULDER PRO REPAIR BICEPS LONG TENDON TOTAL SHOULDER ARTHROPLASTY (WRVU 22.13) MODIFIER BEACH CHAIR SCHLEIN TENODESIS,BICEPS TENDON (PROXIMAL) (WRVU 10.17) Airam Colby MD [facility] [place] [address] [facility] Referral ID Status Reason Start Date Expiration Date Visits Re quested Visits Authorized [id number] 1 1 Encounter Details Date Type Department Care Team (Latest Contact Info) Description 12/09/2023 5:42 AM EST - 12/09/2023 12:33 PM [facility] Hospital [place] [address] Airam Colby MD [facility] [place] [address] Discharge Disposition: Home Social History Tobacco Use [...] 24 hours, please call the Anesthesiology Department: [phone] Shortness of breath: If you have severe shortness of breath that seems to go on and on, please go to the nearest ER (emergency room). If a nerve block lasts longer than 48 hours, take action. If the nerve block does not wear off within 48 hours, please call the Anesthesiology Department: [phone] Protect the part of your body that [...] the Anesthesiology Department with concerns or questions: [phone] After hours: Call the hospital drying machine operator and ask for the anesthesiologist (titi oliveros) marketing operations analyst: [phone] Updated: 08/13/21Scopolamine Patch Discharge Instructions You are [...] Program 8a-5pm Friday-Friday. All other times, call [phone] and ask for the anesthesiologist marketing operations analyst. * Patient Instructions* Bird Corona MD - [...] bowel movement. You can also take an svdf-flw-gfvfgpv medication, Miralax if needed tocombat constipation. 2. [...] air or lightly covered. Call your doctor ([phone]) if you develop: Fever greater than 100.5 [...] 1. You will have follow-up appointments at [facility] as indicated below in Future Appointment and Orders. Future Appointments Date Time Provider Department Center 12/26/2023 2:30 PM Joan Sow PA [facility] ORTH 3A [facility] If you have questions or concerns: Friday [...] 1,000 mg by mouth 2 times daily. yactlae-tqpx-movpr-oreg-c vernell 100 mg-150 mg- 50 mg-150 mg Capsule Take by mouth. Just tumeric venlafaxine XR (Effexor-XR) 37.5 mg ER 24 hr capsule Take 37.5 mg by mouth daily. 02/03/2023 omeprazole (PriLOSEC) [address] capsule Take 20 mg by mouth nightly. 01/31/2023 hydroCHLOROthiazide (Hydrodiuril) 25 mg tablet Take 25 mg by mouth daily. 02/03/2023 fluticasone propionate (Flonase) 50 mcg/actuation Paxton, Suspension 2 sprays by Nasal route Once [...] 22.13) performed by Airam Colby MD at [facility] MAIN OR PRO REPAIR BICEPS LONG TENDON Left 03/11/2023 TENODESIS,BICEPS TENDON (PROXIMAL) (WRVU 10.17) performed by Airam Colby MD at [facility] MAIN OR Home Medications: Medications Prior [...] 5 mg by mouth Twice daily. 12/05/2023 sshoovs-hztl-ngqqg-oreg-capryl 100 mg-150 mg- 50 mg-150 mg Capsule Take by mouth. Just tumeric 12/06/2023 fluticasone propionate (Flonase) 50 mcg/actuation Paxton, Suspension 2 sprays by Nasal route Once [...] Colby M.D., M.S. Professor of Orthopaedic Surgery [facility] Department [place] [address] documented in this encounter Miscellaneous Notes * Op Note - Airam Colby MD - 12/09/2023 7:55 AM EST [facility] Operative Note Patient Name: Sandie Manriquez : [id number] MR#: [id number] Case Date: 12/09/2023 Surgeon: Surgeon(s) and Role: * Airam Colby MD - Primary * Bird Corona MD - Resident - Assisting * Joan Sow PA - Physician Fruit Grader Operator Preoperative diagnosis: shoulder pain Postoperative diagnosis: shoulder [...] Used: Chandler Sidus TSA System with Chandler [place] Glenoid [place]: medium Head: 44x16 Glenoid: Size 4 with 4 peg configuration and center TM post Pre-operative Evaluation: The patient was identified in the preoperative holding area. After confirming that the right shoulder was the correct site of surgery with both the patient and the informed consent, a green sycuan was placed on the operative shoulder. The [...] 8:32 AM EST Repair Biceps Long Tendon (33714) 12/09/2023 7:24 AM EST shoulder pain MODIFIER SIDUS SHOULDER CHANDLER BIOMET 12/09/2023 7:24 AM EST shoulder pain Arthroplasty, Glenohumeral Joint Total Shoulder ([id number]) 12/09/2023 7:24 AM EST shoulder pain TOTAL [...] please contact the health family day care provider that requested your imaging first. ? Electronically signed by: Lynda Parekh MD, [facility] ([phone]), at 12/09/2023 4:09 PM Narrative 12/09/2023 4:09 PM EST EXAMINATION: XR [...] questions please contactthe health family day care provider that requested your imaging first. Electronically signed by: Lynda Parkeh MD, [facility]([phone]), at 12/09/2023 4:09 PM Airam Colby MD IMG DX ORDERABLES * Surgical Pathology Report (12/09/2023 8:32 AM EST) Final Diagnosis [id number] ? Location: [facility]; [facility]; The signing pathologist has (i) [...] MD, Simi Verified: ??12/12/2023 9:48 Performed at: ??-[facility] Dept. of Pathology, [place] [address] Organic Preparation Analyst: Darion Andrew MD, FCAP, ??CLIA Certificate: [id number] SPECIMEN(S) SUBMITTED A - Right shoulder synovium, rule out ?? inflammatory ??stenosis, excision (1) CLINICAL INFORMATION s/p TSA Right shoulder synovium, rule out inflammatory stenosis SPECIMEN PROCESSING A - Labeled/Fixative : Right shoulder synovium, rule out inflammatory stenosis, fresh. Quantity/Size: Single, 3.2 x 2.1 x 1.0 cm. Tissue Description: Irregular fragment of pink-red fibrous tissue. Sections/Process ing: Pulp Tester sections in 2 cassettes labeled A1-A2. ??pps 12/12/2023 9:48 AM EST [facility] SYNOVIUM BIOPSY SPECIMEN / Unknown 12/09/2023 8:32 AM EST 12/09/2023 8:32 AM EST Airam Colby MD PATHOLOGY/CYTOLOGY O NATHANEIL Performing Organization Address City/[facility]/ZIP Co de Phone Number [facility] [address] [place] [address] * Specimen to Pathology (12/09/2023 8:32 AM EST) AP Specimen 12/09/2023 8:32 AM EST 12/09/2023 8:32 AM EST Narrative [facility] - 12/09/2023 8:32 AM EST Specimen requisition ordered. ??Separate Pathology report to follow Airam Colby MD PATHOLOGY/CYTOLOGY O NATHANIEL Performing Organization Address City/[facility]/ZIP Co de Phone Number [facility] [place] [address] * SCAN DOC: IMPLANTABLE DEVICES (12/09/2023 12:00 [...] MD) documented in this encounter Care Teams Tool Distributor Relationship Specialty Start Date End Date Osbaldo Dewitt APRN [address] [place], [place] [phone] PCP - General Family Medicine 12/31/22 documented as of this encounter
--- OUTSIDE RECORDS SUMMARY | 2024-10-22 01:07 | XMS_ITS | Encounter Summary ---
Author Organization [facility] [place] [address] Care Team Providers Care Oracle Applications Analyst Name Role Phone Osbaldo Dewitt APRN Primary Care Provider [phone] Encounter Details Date Type Department Care Team (Late st Contact Info) Description 08/08/2023 Orders [place] [address] Christine Colby MD [facility] [place] [address] Chronic pain in right shoulder Social History [...] region documented in this encounter Care Teams Oracle Applications Analyst Relationship Specialty Start Date End Date Osbaldo Dewitt APRN [address] [place] [phone] PCP - General Family Medicine 12/31/22 documented as of this encounter
--- OUTSIDE RECORDS SUMMARY | 2024-10-22 01:07 | XMS_ITS | Encounter Summary ---
[place] [address] Care Team Providers Care Lapping Machine Operator Name Role Phone Osbaldo Dewitt APRN Primary Care Provider [phone] Reason for Referral * Consultation (Routine) - Closed Specialty Diagnoses / Procedures Referred By Chance le Referred To Contact Rheumatology Diagnoses Glenohumeral arthritis, left Synovitis Rosalee Powers PA [facility] [place] [address] [facility] Rheumatology [address] [place] [phone] Referral ID Status Reason Start Date Expiration Date V isits Requested Visits Authorized [id number] Closed Consult, Test & Treat 03/25/2023 03/24/2024 1 1 Reason for Visit * Reason Comments Post Op 03-11-23 left TSA Encounter Details Date Type Department Care Team (Late st Contact Info) Description 03/25/2023 10:00 AM EDT Office [place] [address] [facility] [place] [address] s/p left anatomic stemless TSA, [...] NAME: Sandie Manriquez AGE: 62 y.o. MR#: [id number] DATE OF VISIT: 03/25/2023 DATE OF SURGERY: [...] is suggested. SURVEY RESPONSES: 03/19/2023 4:[address] [facility] Surgical Postop Visit PROMIS-10 General Health Good [...] Again Definitely yes 03/19/2023 4:[address] [facility] Response ASES VAS-RIGHT 6 ASES ADL-RIGHT ARM [...] x-rays. The above documentation was completed using [employer] voice recognition software. documented in this encounter [...] have questions please contact the health career development coordinator/teacher that requested your imaging first. ? Electronically signed by: Lynda Parekh MD, [facility] ([phone]), at 04/25/2023 4:11 PM Narrative 04/25/2023 4:11 [...] who have questions please contactthe health career development coordinator/teacher that requested your imaging first. Electronically signed by: Lynda Parekh MD, [facility]([phone]), at 04/25/2023 4:11 PM Christine Colby MD IMG DX ORDERABLES * Differential, Automated (03/25/2023 11:14 AM EDT) Neutrophil % 69.7 % [facility] Neutrophil Absolute 5.69 1.70 - 6.10 x10(3)/[facility] LABORATORY Lymph % 15.7 % [facility] Lymphocytes Abs 1.3 0.9 - 3.2 x10(3)/[facility] LABORATORY Monocyte % 11.1 % [facility] Monocyte Abs 0.9 0.3 - 0.9 x10(3)/[facility] LABORATORY Eos % 2.4 % [facility] Eosinophils Abs 0.2 0.0 - 0.4 x10(3)/[facility] LABORATORY Basophil % 0.7 % [facility] Baso Absolute 0.1 0.0 - 0.1 x10(3)/[facility] LABORATORY Immature Gran % 0.40 % [facility] Comment: Immature granulocytes(IG's)percentage and absolute count will include metamyelocytes, myelocytes, and promyelocytes. Blood smears from CBCs yielding IG's will be scanned manually for concordance. If this scan disagrees with the automated IG or if promyelocytes are noted, a manual differential will be performed. Immature Gran Absolute 0.03 0.00 - 0.04 x10(3)/[facility] LABORATORY Blood 03/25/2023 11:1 4 AM EDT 03/25/2023 11:23 AM EDT Narrative Resulting Agency Comment Spec In Lab Rosalee ANDRES HEMATOLOGY ORDERABL ES [facility] [place] [address] * (ABNORMAL) Hemogram (03/25/2023 11:14 AM EDT) White Blood Cell 8.2 4.0 - 9.5 x10(3)/mc L [facility] Red Blood Cell 3.98(L) 4.00 - 5.21 x10(6)/mc L [facility] Hemoglobin 12.6 11.7 - 15.5 g/dL [facility] Hematocrit 37.3 35.7 - 45.8 % [facility] Mean Cell Volume 93.7 82.6 - 94.4 fL [facility] Mean Cell Hemoglobin 31.7 27.1 - 32.0 pg [facility] Mean Cell Hemoglobin Concentration 33.8 31.7 - 35.0 g/dL [facility] Platelet 357 145 - 357 x10(3)/mc L [facility] RDW Standard Deviation 46.3(H) 37.0 - 46.0 fL [facility] RDW coefficient of variation 13.4 11.5 - 14.1 % [facility] Mean Platelet Volume 9.7 7.6 - 12.9 fL [facility] NRBC% auto 0.0 % [facility] NRBC Absolute 0.000 0.000 - 0.000 x10(3)/mc L [facility] Blood 03/25/2023 11:1 4 AM EDT 03/25/2023 11:23 AM EDT Narrative Resulting Agency Comment Spec In Lab Rosalee ANDRES HEMATOLOGY ORDERABL ES [facility] [place] [address] * SIRENA Antibody Screen (03/25/2023 11:14 AM EDT) SIRENA Ab Screen Negative Negative [facility] Comment: This antinuclear antibody [...] performed by the Special Chemistry Laboratory at [facility]. This change in testing location is associated with a change is testing method and reference intervals. Please review the results of this test in association with the posted reference intervals. dsDNA Ab <0.6 <=15.0 IU/mL [facility] Comment: <10 negative 10-15 [...] performed by the Special Chemistry Laboratory at [facility]. This change in testing location is associated with a change is testing method and reference intervals. Please review the results of this test in association with the posted reference intervals. Blood 03/25/2023 11:1 4 AM EDT 03/25/2023 11:59 AM EDT Narrative Resulting Agency Comment Spec In Lab Christine Colby MD LAB SEND OUT ORDERAB LES Performing Organization Address [facility] Co de Phone Number [facility] [place] [address] * (ABNORMAL) Sedimentation rate (03/25/2023 11:14 AM EDT) Sedimentation Rate Automated 45(H) 2 - 39 mm/hr [facility] Comment: Effective September 15, 2019 new capillary photometric technology has resulted in a change in reference ranges. It is recommended that each ESR result be reviewed with its own age appropriate reference range. Blood 03/25/2023 11:1 4 AM EDT 03/25/2023 11:23 AM EDT Narrative Resulting Agency Comment Spec In Lab Christine Colby MD HEMATOLOGY ORDERABLE S Performing Organization Address [facility] de Phone Number [facility] [place] [address] * Rheumatoid factor, quant (03/25/2023 11:14 AM EDT) Rheumatoid Factor 10 <=14 IU/mL [facility] Blood 03/25/2023 11:1 4 AM EDT 03/25/2023 11:23 AM EDT Narrative Resulting Agency Comment Spec In Lab Christine Colby MD CHEMISTRY ORDERABLES Performing Organization Address [facility] Co de Phone Number [facility] [place] [address] * Cyclic Citrullinated Peptide (03/25/2023 11:14 AM EDT) Cyclic Citrulline Peptide <8.0 <=16.9 unit/mL [facility] Blood 03/25/2023 11:1 4 AM EDT 03/25/2023 11:23 AM EDT Narrative Resulting Agency Comment Spec In Lab Christine Colby MD CHEMISTRY ORDERABLES Performing Organization Address [facility]/ZIP Co de Phone Number [facility] [place] [address] * CRP, acute inflammation (03/25/2023 11:14 AM EDT) C-Reactive Protein <3.0 <=4.9 mg/L [facility] Blood 03/25/2023 11:1 4 AM EDT 03/25/2023 11:23 AM EDT Narrative Resulting Agency Comment Spec In Lab Christine Colby MD CHEMISTRY ORDERABLES [facility] [place] [address] documented in this encounter Visit Diagnoses Diagnosis s/p left anatomic stemless TSA, 03/11/23 (Dr Colby) Synovitis Synovitis and tenosynovitis, unspecified s/p left anatomic stemless TSA, 03/11/23 (Dr Colby) documented in this encounter Care Teams Lapping Machine Operator Relationship Specialty Start Date End Date Osbaldo Dewitt APRN [address] [place] [phone] PCP - General Family Medicine 12/31/22 documented as of this encounter
--- OUTSIDE RECORDS SUMMARY | 2024-10-22 01:07 | XMS_ITS | Encounter Summary ---
Author Organization [facility] [place] [address] Care Team Providers Care Public Policy Mediator Name Role Phone Osbaldo Dewitt APRN Primary Care Provider [phone] Reason for Referral * Physical Therapy (Routine) - Closed Specialty Diagnoses / Procedures Referred By Chance le Referred To Contact Diagnoses Primary osteoarthritis of both shoulders Christine Colby MD [facility] [place] [address] Referral ID Status Reason Start Date Expiration Date V isits Requested Visits Authorized [id number] Closed Evaluate and Treat 03/06/2023 09/02/2023 12 12 Reason for Visit * Reason Comments Pre-op Exam 03-11-23 Left TSA Encounter Details Date Type Department Care Team (Latest Contact Info) Description 03/06/2023 10:40 AM EDT Office [place] [address] Christine Colby MD [facility] [place] [address] Primary osteoarthritis of both shoulders; Primary osteoarthritis [...] - 03/06/2023 10:40 AM EDT Shoulder Service [place], [place] Date of Evaluation: 03/06/2023 Subjective: Sandie [...] M.S. Professor of Orthopaedic Surgery [employer] [facility] Department [place] [address] This note was created with [employer] voice recognition software. Please excuse any typos. [...] Discussed making sure they take care of children's choir director, sleeping situations, and having help with ADL'sbefore [...] services post-op: No BRITNI Knight, VTLAT, ATC Pressfitter, Orthopedics and Sports Medicine Tel Fax [facility] documented in this encounter Plan of Treatment Scheduled Referrals Name Type Priority Associated Diagnoses Orde r Schedule Referral to Physical Therapy Outpatient Referral Routine Primary osteoarthritis of both shoulders Ordered: 03/06/2023 documented as of this encounter Visit Diagnoses Diagnosis Primary osteoarthritis of both shoulders Primary osteoarthritis of left shoulder Primary localized osteoarthrosis, shoulder region documented in this encounter Care Teams Public Policy Mediator Relationship Specialty Start Date End Date Osbaldo Dewitt APRN [address] [place] [phone] PCP - General Family Medicine 12/31/22 documented as of this encounter
--- OUTSIDE RECORDS SUMMARY | 2024-10-22 01:07 | XMS_ITS | Encounter Summary ---
[place] [address] Care Team Providers Care Informatica Name Role Phone Osbaldo Dewitt APRN Primary Care Provider [phone] Encounter Details Date Type Department Care Team (Late st Contact Info) Description 02/20/2023 Telephone [place] [address] Christine Colby MD [facility] [address] [place] [address] Social History Tobacco Use Types Packs/Day Years [...] on filedocumented in this encounter Care Teams Informatica Relationship Specialty Start Date End Date Osbaldo Dewitt APRN [address] [place] [address] [place] [phone] PCP - General Family Medicine 12/31/22 documented as of this encounter
--- OUTSIDE RECORDS SUMMARY | 2024-10-22 01:07 | XMS_ITS | Encounter Summary ---
Author Organization [facility] Address [facility] [address] Care Team Providers Care Bias Binding Folder Name Role Phone Osbaldo Dewitt APRN Primary Care Provider [phone] Encounter Details Date Type Department Care Team [...] on filedocumented in this encounter Care Teams Bias Binding Folder Relationship Specialty Start Date End Date Osbaldo Dewitt APRN [address] [place] [phone] PCP - General Family Medicine 12/31/22 documented as of this encounter
--- OUTSIDE RECORDS SUMMARY | 2024-10-22 01:07 | XMS_ITS | Encounter Summary ---
Author Organization [facility] Address [facility] [place] [address] Care Team Providers Care Assistant Golf Professional Name Role Phone Osbaldo Dewitt CAMILO Primary Care Provider [phone] Reason for Visit * Reason Onset Date Comments Questions 10/30/2023 Encounter Details Date Type Department Care Team (Late st Contact Info) Description 10/30/2023 Telephone [place] [phone] Christine Colby MD [facility] [place] [address] Questions Social History Tobacco Use Types Packs/Day Years Used Date Smoking Tobacco: Former Cigarettes Smokeless Tobacco: Never Alcohol Use Standard Drinks/Week Comments Yes 14 (1 standard drink = 0.6 oz pu re alcohol) [facility] Inpatient Questions Answer Date Recorded [...] ESTSummary: Questions Name of person calling : [facility] Facility person calling from: N/A Who is the provider: Earnestine Have you had surgery: Yes If yes : DOS:03/11/2023 Surgeon: Earnestine Is there a new injury: No If yes, how did the new injury occur?: Best contact number: [phone] What is the question: Patient is calling [...] on filedocumented in this encounter Care Teams Assistant Golf Professional Relationship Specialty Start Date End Date Osbaldo Dewitt APRN [address] [place] [phone] PCP - General Family Medicine 12/31/22 documented as of this encounter
--- OUTSIDE RECORDS SUMMARY | 2024-10-22 01:07 | XMS_ITS | Encounter Summary ---
Author Organization [facility] [place] [address] Care Team Providers Care Chief Radiologic Technologist Name Role Phone Osbaldo Dewitt APRN Primary Care Provider [phone] Reason for Visit * Diagnostic Test (Routine) - Closed Specialty Diagnoses / Procedures Referred By Chance le Referred To Contact Neurology Diagnoses Neuralgia and neuritis Chante Salas APRN [facility] [place] [address] [facility] [address] [place] [address] Referral ID Status Reason Start Date Expiration Date V isits Requested Visits Authorized [id number] Closed Test Only 06/10/2023 06/09/2024 1 1 Encounter Details Date Type Department Care Team (Latest Contact Info) Description 07/14/2023 11:00 AM EDT Procedure [place] [phone] Aditya Boss MD [facility] [place] [place] [address] Carpal tunnel syndrome on left [...] for EDX studies by Chante Salas APRN [facility] [place] [address] to look for evidence of cervical radiculopathy [...] syndrome documented in this encounter Care Teams Chief Radiologic Technologist Relationship Specialty Start Date End Date Osbaldo Dewitt APRN [address] [place] [phone] PCP - General Family Medicine 12/31/22 documented as of this encounter
--- OUTSIDE RECORDS SUMMARY | 2024-10-22 01:07 | XMS_ITS | Encounter Summary ---
Author Organization [facility] Address [facility] [address] Care Team Providers Care Ink Maker Name Role Phone Osbaldo Dewitt APRN Primary [...] on filedocumented in this encounter Care Teams Ink Maker Relationship Specialty Start Date End Date Osbaldo Dewitt APRN [address] [place] [phone] PCP - General Family Medicine 12/31/22 documented as of this encounter
--- OUTSIDE RECORDS SUMMARY | 2024-10-22 01:07 | XMS_ITS | Encounter Summary ---
Author Organization [facility] Address [facility] [place] [address] Care Team Providers Care Pharmacy Salesperson Name Role Phone Osbaldo Dewitt APRN Primary Care Provider [phone] Encounter Details Date Type Department Care Team [...] filedocumented in this encounter Care Teams Pharmacy Salesperson Relationship Specialty Start Date End Date Osbaldo Dewitt APRN [address] [place] [phone] PCP - General Family Medicine 12/31/22 documented as of this encounter
--- OUTSIDE RECORDS SUMMARY | 2024-10-22 01:07 | XMS_ITS | Encounter Summary ---
Author Organization [facility] [place] [address] Care Team Providers Care Anchor Tack Puller Name Role Phone Osbaldo Dewitt APRN Primary Care Provider [phone] Encounter Details Date Type Department Care Team (Late st Contact Info) Description 09/03/2023 5:10 PM EST Ancillary Procedure [facility] [place] [address] Osbaldo Dewitt APRN [address] [place] [phone] Social History Tobacco Use Types Packs/Day [...] Upper Extremity (09/03/2023 5:06 PM EST) Narrative [facility] - 09/03/2023 5:06 PM EST This exam is auto-finalizing. It's purpose is for storage only. Osbaldo Dewitt APRN [facility] FILM LIBRARY ORD ERABLES [place], [place] documented in this encounter Visit Diagnoses Not on filedocumented in this encounter Care Teams Anchor Tack Puller Relationship Specialty Start Date End Date Osbaldo Dewitt APRN [address] [place] [phone] PCP - General Family Medicine 12/31/22 documented as of this encounter
--- OUTSIDE RECORDS SUMMARY | 2024-10-22 01:07 | XMS_ITS | Encounter Summary ---
Author Organization [facility] [place] [address] Care Team Providers Care Director Of Direct Marketing Name Role Phone Osbaldo Dewitt CAMILO Primary Care Provider [phone] Reason for Visit * Reason Onset Date Comments Prior Authorization 08/11/2023 Encounter Details Date Type Department Care Team (Late st Contact Info) Description 08/11/2023 Telephone [place] [address] Christine Colby MD [facility] [place] [address] Prior Authorization Social History Tobacco Use Types [...] EST Contacted Munir for prior authorization at [phone] and [phone] Authorization Status: Approved Prior Authorization Approval Number: [id number] Valid dates: 08/11/23-02/07/24 Order and demographics faxed to [facility] at [phone] Left message on patient's voice mail to inform authorization was complete and to contact [facility] to schedule study. documented in this encounter Plan of Treatment Not on file documented as of this encounter Visit Diagnoses Not on filedocumented in this encounter Care Teams Director Of Direct Marketing Relationship Specialty Start Date End Date Osbaldo Dewitt APRN [address] [place] [phone] PCP - General Family Medicine 12/31/22 documented as of this encounter
--- OUTSIDE RECORDS SUMMARY | 2024-10-22 01:07 | XMS_ITS | Encounter Summary ---
Author Organization [facility] Address [facility] [place] [address] Care Team Providers Care Financial Management Name Role Phone Osbaldo Dewitt APRN Primary Care Provider [phone] Encounter Details Date Type Department Care Team [...] on filedocumented in this encounter Care Teams Financial Management Relationship Specialty Start Date End Date Osbaldo Dewitt APRN [address] [place] [phone] PCP - General Family Medicine 12/31/22 documented as of this encounter
--- OUTSIDE RECORDS SUMMARY | 2024-10-22 01:07 | XMS_ITS | Encounter Summary ---
Author Organization [facility] Address [facility] [place] [address] Care Team Providers Care Fire Extinguisher Installer Name Role Phone Osbaldo Dewitt APRN Primary Care Provider [phone] Reason for Visit * Reason Comments Follow-up 03-11-23 L [facility] Encounter Details Date Type Department Care Team (Late st Contact Info) Description 04/25/2023 2:40 PM EDT Office [place] [phone] Christine Colby MD [facility] [place] [address] Status post replacement of left shoulder joint [...] - 04/25/2023 2:40 PM EDT Shoulder Service [place], [place] Date of Evaluation: 04/25/2023 Subjective: Sandie [...] were answered today. Christine Colby M.D., M.S. Recreational Vehicle Resort Manager of Orthopaedic Surgery Shoulder, Elbow, and Sports Medicine Department of Orthopaedic Surgery [place], [place] [address] This note was created with [employer] voice recognition software. Please excuse any typos. documented in this encounter Plan of Treatment Not on file documented as of this encounter Visit Diagnoses Diagnosis Status post replacement of left shoulder joint documented in this encounter Care Teams Fire Extinguisher Installer Relationship Specialty Start Date End Date Osbaldo Dewitt APRN [address] [place] [phone] PCP - General Family Medicine 12/31/22 documented as of this encounter
--- OUTSIDE RECORDS SUMMARY | 2024-10-22 01:07 | XMS_ITS | Encounter Summary ---
Author Organization [facility] [place] [address] Care Team Providers Care Film Masker Name Role Phone Osbaldo Dewitt APRN Primary Care Provider Reason for Visit * Reason Onset Date Comments Pre Procedure Call 07/22/2023 Encounter Details Date Type Department Care Team (Late st Contact Info) Description 07/22/2023 Telephone [place] [address] Veto Odell MD [facility] [place] [address] Pre Procedure Call (/) Social History Tobacco [...] on filedocumented in this encounter Care Teams Film Masker Relationship Specialty Start Date End Date Osbaldo Dewitt APRN [address] [place] [phone] PCP - General Family Medicine 12/31/22 documented as of this encounter
--- OUTSIDE RECORDS SUMMARY | 2024-10-22 01:07 | XMS_ITS | Encounter Summary ---
Author Organization [facility] Address [facility] [place] [address] Care Team Providers Care Cupola Liner Helper Name Role Phone Osbaldo Dewitt APRN Primary Care Provider [phone] Reason for Referral * Physical Therapy (Routine) - Closed Specialty Diagnoses / Procedures Referred By Chance le Referred To Contact Physical Therapy Diagnoses Primary osteoarthritis of both shoulders Christine Colby MD [facility] [place] [address] Physical Therapy, Espinoza Newman [address] [place] [address] Referral ID Status Reason Start Date Expiration Date V isits Requested Visits Authorized [id number] Closed Evaluate and Treat 11/13/2023 05/11/2024 12 12 Reason for Visit * Reason Comments Pre-op Exam 12-09-23 RIGHT TSA Encounter Details Date Type Department Care Team (Latest Contact Info) Description 11/13/2023 11:20 AM EST Office [place] [address] Christine Colby MD [facility] [place] [address] Primary osteoarthritis of both shoulders; Primary osteoarthritis [...] - 11/13/2023 11:20 AM EST Shoulder Service [place], [place] Date of Evaluation: 11/13/2023 Subjective: Sandie [...] M.D., M.S. Professor of Orthopaedic Surgery [facility]ly [facility] Department [place] [address] This note was created with [employer] voice recognition software. Please excuse any typos. [...] making sure they take care of child welfare director, sleeping situations, and having help with [...] surgery. Chronic anti-coagulation: yes, per PCP or Commercial Relationship Manager Anticoagulation plan post op: POSTOPANTICOAG: TBD by PCP/Commercial Relationship Manager 11/13/2023 03/06/2023 02/07/2023 Opioid PDMP [place] PDMP [...] schedulers direct number Mae Knight.Nani.LAT, VTLAT, ATC Bilingual Inside Sales Representative, Orthopedics and Sports Medicine Tel Fax [facility] documented in this encounter Plan of Treatment Scheduled Referrals Name Type Priority Associated Diagnoses Orde r Schedule Referral to Physical Therapy Outpatient Referral Routine Primary osteoarthritis of both shoulders Ordered: 11/13/2023 documented as of this encounter Visit Diagnoses Diagnosis Primary osteoarthritis of both shoulders Primary osteoarthritis of right shoulder Primary localized osteoarthrosis, shoulder region documented in this encounter Care Teams Cupola Liner Helper Relationship Specialty Start Date End Date Osbaldo Dewitt APRN [address] [place] [phone] PCP - General Family Medicine 12/31/22 documented as of this encounter
--- OUTSIDE RECORDS SUMMARY | 2024-10-22 01:07 | XMS_ITS | Encounter Summary ---
[place] [address] Care Team Providers Care Compound Mixer Name Role Phone EsdrasOsbaldo weston Ayana PAGE Primary Care Provider [phone] Encounter Details Date Type Department Care Team (Late st Contact Info) Description 03/14/2023 [place] [phone] Selene Lindsey MD [facility] DR ANESTHESIOLOGY [place] [address] Social History Tobacco Use Types Packs/Day Years [...] Selene Lindsey MD 03/14/2023 Regional Anesthesia Pager [phone] documented in this encounter Plan of Treatment Not on file documented as of this encounter Visit Diagnoses Not on filedocumented in this encounter Care Teams Compound Mixer Relationship Specialty Start Date End Date Osbaldo Dewitt APRN [address] [place] [phone] PCP - General Family Medicine 12/31/22 documented as of this encounter
--- OUTSIDE RECORDS SUMMARY | 2024-10-22 01:07 | XMS_ITS | Encounter Summary ---
Author Organization [facility] Address [place] [address] Care Team Providers Care Quantitative Analyst Name Role Phone Osbaldo Dewitt CAMILO Primary Care Provider [phone] Encounter Details Date Type Department Care Team (Latest Contact Info) Description 04/25/2023 1:46 PM EDT - 04/25/2023 11:59 PM EDT Hospital Encounter XRay at [address] [place] [address] Christine Colby MD [facility] [place] [address] s/p left anatomic stemless TSA, 03/11/23 (Dr [...] Sig Dispensed Refills Start Date End Date ztaqitb-mhnf-fhpos-oreg -capryl 100 mg-150 mg- 50 mg-150 mg Capsule Take by mouth. Just tumeric venlafaxine XR (Effexor-XR) 37.5 mg ER 24 hr capsule Take 37.5 mg by mouth daily. 02/03/2023 omeprazole (PriLOSEC) [address] capsule Take 20 mg by mouth nightly. 01/31/2023 hydroCHLOROthiazide (Hydrodiuril) 25 mg tablet Take 25 mg by mouth daily. 02/03/2023 fluticasone propionate (Flonase) 50 mcg/actuation [place], Suspension 2 sprays by Nasal route Once [...] who have questions please contact the health health care liaison that requested your imaging first. ? Electronically signed by: Lynda Parekh MD, [facility] ([phone]), at 04/25/2023 4:11 PM Narrative 04/25/2023 4:11 [...] of the left lung. Procedure Note Lynda Praekh MD - 04/25/2023 EXAMINATION: XR SHOULDER LEFT [...] patients who have questions please contactthe health health care liaison that requested your imaging first. Electronically signed by: Lynda Parekh MD, [facility]([phone]), at 04/25/2023 4:11 PM Christine Colby MD IMG DX ORDERABLES documented in this encounter Visit Diagnoses Diagnosis s/p left anatomic stemless TSA, 03/11/23 (Dr Colby) documented in this encounter Care Teams Quantitative Analyst Relationship Specialty Start Date End Date Osbaldo Dewitt APRN [address] [place] [phone] PCP - General Family Medicine 12/31/22 documented as of this encounter
--- OUTSIDE RECORDS SUMMARY | 2024-10-22 01:07 | XMS_ITS | Encounter Summary ---
Author Organization [facility] [place] [address] Care Team Providers Care Artificial Flowers Supervisor Name Role Phone Osbaldo Dewitt Yaron PAGE Primary Care Provider [phone] Reason for Visit * Auth/Cert (Routine) Specialty Diagnoses / Procedures Referred By Chance t Referred To Contact Diagnoses shoulder arthritis Procedures PRO ARTHROPLASTY GLENOHUMERAL JOINT TOTAL SHOULDER PRO REPAIR BICEPS LONG TENDON TOTAL SHOULDER ARTHROPLASTY (WRVU 22.13) MODIFIER BEACH CHAIR SCHLEIN TENODESIS,BICEPS TENDON (PROXIMAL) (WRVU 10.17) Airam Colby MD [facility] [place] [address] [facility] Referral ID Status Reason Start Date Expiration Date Visits Re quested Visits Authorized [id number] 1 1 Encounter Details Date Type Department Care Team (Late st Contact Info) Description 03/11/2023 7:30 AM EDT - 03/11/2023 10:40 AM EDT Surgery [place] [phone] Airam Colby MD [facility] [place] [address] TOTAL SHOULDER ARTHROPLASTY (WRVU 22.13) Social History [...] bowel movement. You can also take an qzza-ekn-cbnwtzn medication, Miralax if needed tocombat constipation. 2. [...] air or lightly covered. Call your doctor ([phone]) if you develop: Fever greater than 100.5 Severe nausea or vomiting Increasing pain that is not controlled by pain medications Increasing redness, swelling, or drainage from incisions Change in sensation Misc: Remember that ICE and elevation are very important to decrease swelling and control pain. Youshould use the ICE for 20-30 minutes at a time. FOLLOW-UP APPOINTMENTS: You will have follow-up appointments at [facility] as indicated below in Future Appointment and Orders. Future Appointments Date Time Provider Department Center 03/25/2023 10:00 AM Rosalee Powers PA [facility] ORTH 3A [facility] If you have [...] Sig Dispensed Refills Start Date End Date qblcivu-bdof-yajsn-oreg -capryl 100 mg-150 mg- 50 mg-150 mg Capsule Take by mouth. Just tumeric venlafaxine XR (Effexor-XR) 37.5 mg ER 24 hr capsule Take 37.5 mg by mouth daily. 02/03/2023 omeprazole (PriLOSEC) [address] capsule Take 20 mg by mouth nightly. 01/31/2023 hydroCHLOROthiazide (Hydrodiuril) 25 mg tablet Take 25 mg by mouth daily. 02/03/2023 fluticasone propionate (Flonase) 50 mcg/actuation [place], Suspension 2 sprays by Nasal route Once [...] Admission Medication Sig Dispense Refill Last Dose gcbwvea-jqlv-copoo-oreg-capryl 100 mg-150 mg- 50 mg-150 mg Capsule Take by mouth. 03/09/2023 venlafaxine XR (Effexor-XR) 37.5 mg ER 24 hr capsule 03/11/2023 at 0430 omeprazole (PriLOSEC) [address] capsule Take 20 mg by mouth nightly. 03/09/2023 losartan (Cozaar) 100 mg tablet Take 100 mg by mouth daily. 03/10/2023 hydroCHLOROthiazide (Hydrodiuril) 25 mg tablet 03/10/2023 at 0430 fluticasone propionate (Flonase) 50 mcg/actuation [place], Suspension 2 sprays by Nasal route Once [...] arthroplasty. Elijah Lugo MD Orthopaedic Surgery Pager: [phone] Attending addendum: The preceeding portion of this note was written by Dr. Lugo. I personally saw and evaluated the patient at the bedside and I agree with the assessment and plan documented above. Airam Colby M.D., M.S. Professor of Orthopaedic Surgery [facility] Department [place] [address] documented in this encounter Miscellaneous Notes * Op Note - Airam Colby MD - 03/11/2023 7:54 AM EDT [facility] Operative Note Patient Name: Sandie Manriquez : [id number] MR#: [id number] Case Date: 03/11/2023 Surgeon: Surgeon(s) and Role: * Airam Colby MD - Primary * Elijah Lugo MD - Resident - Assisting * Joan Sow PA - Physician Differential Specialist Preoperative diagnosis: shoulder arthritis Postoperative diagnosis: shoulder [...] Used: Chandler Sidus TSA System with Chandler Rhine Glenoid Quincy: medium Head: 42x15 Glenoid: Size 4 with 4 peg configuration and center TM post Pre-operative Evaluation: The patient was identified in the preoperative holding area. After confirming that the left shoulder was the correct site of surgery with both the patient and the informed consent, a green platinum wasplaced on the operative shoulder. The plan [...] EDT shoulder arthritis Repair Biceps Long Tendon (33805) Yes 03/11/2023 7:22 AM EDT shoulder arthritis MODIFIER BEACH CHAIR SCHLEIN Yes 03/11/2023 7:22 AM EDT shoulder arthritis Arthroplasty, Glenohumeral Joint Total Shoulder (03790) Yes 03/11/2023 7:22 AM EDT shoulder arthritis [...] who have questions please contact the health aged or disabled carer that requested your imaging first. ? Electronically signed by: Betty Abrams MD, [facility] ([phone]), at 03/11/2023 2:30 PM Narrative 03/11/2023 2:30 [...] patients who have questions please contactthe health aged or disabled carer that requested your imaging first. Electronically signed by: Betty Abrams MD, [facility]([phone]), at 03/11/2023 2:30 PM Airam Colby MD IMG DX ORDERABLES * Surgical Pathology Report (03/11/2023 8:24 AM EDT) Final Diagnosis [id number] ? Location: [facility]; [facility]; A The signing pathologist has (i) examined the relevant preparation(s) for the specimen(s) and (ii) rendered or confirmed the diagnosis(es). . 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 of Pathology, [place] [address] Bench Worker: Darion Andrew MD, FCAP, ??CLIA Certificate: [id number] DISCUSSION While non-specific, the presence of patchy lymphoplasmacytic inflammation could raise diagnostic consideration of rheumatoid arthritis, in the appropriate clinical context. Correlation with clinical and serologic studies is suggested. SPECIMEN(S) SUBMITTED A - synovium, excision (1) CLINICAL INFORMATION Shoulder arthritis SPECIMEN PROCESSING A - Labeled/Fixative: Synovium, fresh. Quantity/Size: Single, 3.0 x 2.1 x 0.6 cm. Tissue Description: Soft red papillary tissue. Sections/Processing: Local Company Tanker Driver sections in 1 cassette labeled A1. ??aaw 03/13/2023 10:20 AM EDT [facility] SYNOVIUM BIOPSY SPECIMEN / Unknown 03/11/2023 8:24 AM EDT 03/11/2023 8:24 AM EDT Airam Colby MD PATHOLOGY/CYTOLOGY O NATHANIEL Performing Organization Address [facility]/ZIP Co de Phone Number [facility] [address] [place] [address] * Specimen to Pathology (03/11/2023 8:24 AM EDT) AP Specimen 03/11/2023 8:24 AM EDT 03/11/2023 8:24 AM EDT Narrative [facility] - 03/11/2023 8:24 AM EDT Specimen requisition ordered. ??Separate Pathology report to follow Airam Colby MD PATHOLOGY/CYTOLOGY O NATHANIEL Performing Organization Address [facility]/State/ZIP Co de Phone Number [facility] [place] [address] * SCAN DOC: IMPLANTABLE DEVICES (03/11/2023 12:00 [...] patch. documented in this encounter Care Teams Artificial Flowers Supervisor Relationship Specialty Start Date End Date Osbaldo Dewitt APRN [address] [place] [phone] PCP - General Family Medicine 12/31/22 documented as of this encounter
--- OUTSIDE RECORDS SUMMARY | 2024-10-22 01:07 | XMS_ITS | Encounter Summary ---
[place] [address] Care Team Providers Care System Administrator Name Role Phone Osbaldo Dewitt APRN Primary Care Provider [phone] Encounter Details Date Type Department Care Team (Late st Contact Info) Description 12/09/2023 [place] [address] Eric Damon MD Social History [...] filedocumented in this encounter Care Teams System Administrator Relationship Specialty Start Date End Date Osbaldo Dewitt APRN [address] [place] [phone] PCP - General Family Medicine 12/31/22 documented as of this encounter
--- OUTSIDE RECORDS SUMMARY | 2024-10-22 01:07 | XMS_ITS | Encounter Summary ---
Author Organization [facility] [place] [address] Care Team Providers Care Diesel Engine Mechanic Name Role Phone Osbaldo Dewitt Yaron PAGE Primary Care Provider [phone] Reason for Visit * Auth/Cert (Routine) Specialty Diagnoses / Procedures Referred By Chance t Referred To Contact Diagnoses shoulder arthritis Procedures PRO ARTHROPLASTY GLENOHUMERAL JOINT TOTAL SHOULDER PRO REPAIR BICEPS LONG TENDON TOTAL SHOULDER ARTHROPLASTY (WRVU 22.13) MODIFIER BEACH CHAIR SCHLEIN TENODESIS,BICEPS TENDON (PROXIMAL) (WRVU 10.17) Christine Colby MD [facility] [place] [address] [facility] Referral ID Status Reason Start Date Expiration Date Visits Re quested Visits Authorized [id number] 1 1 Encounter Details Date Type Department Care Team (Late st Contact Info) Description 03/11/2023 7:22 AM EDT Anesthesia Event [place] [address] Roderick Garcia MD [facility] [place] [address] Anesthesia Record Procedure Summary Procedure Name Responsible [...] 0648; metacarpal vein (top of hand), right; vqgn-jyo-crxhcv catheter system; Anatomical Landmarks; 20 gauge, 1 [...] Procedure Summary Date: 03/11/23 Room / [facility] Anesthesia Start: 721 Anesthesia Stop: 954 Procedures: TOTAL SHOULDER ARTHROPLASTY (WRVU 22.13) (Left: Shoulder) MODIFIER BEACH CHAIR SCHLEIN (Shoulder) TENODESIS,BICEPS TENDON (PROXIMAL) (WRVU 10.17) (Left: Shoulder) MODIFIER SIDUS SHOULDER CHANDLER BIOMET Diagnosis: (shoulder arthritis) Surgeons: Christine Colby MD Responsible Provider: Roderick Garcia MD Anesthesia Type: general ASA Status: 2 All Anesthesia Providers: Anesthesiologist: Roderick Garcia MD RUBBER FLAP CUTTER: Jay Lynn CRNA Vitals Value Taken Time [...] throughout, tolerated procedure without issue. Performed by: Resident/RUBBER FLAP CUTTER: Selene Lindsey MD Fellow: Gladys Clarke MD [...] arthritis. PMHx: reviewed; notable for GERD, HTN AUTOMOTIVE UPHOLSTERER meds: reviewed Labs: reviewed Prior anesthesia hx: [...] tolerated procedure without issue. Performed by: ?? Resident/RUBBER FLAP CUTTER: ? Selene Lindsey MD ?? Fellow: ?Gladys Clarke MD ?? Attending Physician: ? Kevin Smith MD Authorized by: Kevin Smith MD Kevin Smith MD GROCERY DELIVERER [facility] documented in this encounter Visit Diagnoses [...] Units documented in this encounter Care Teams Diesel Engine Mechanic Relationship Specialty Start Date End Date Osbaldo Dewitt, CAMILO [address] [place] [phone] PCP - General Family Medicine 12/31/22 documented as of this encounter
--- OUTSIDE RECORDS SUMMARY | 2024-10-22 01:07 | XMS_ITS | Encounter Summary ---
Author Organization [facility] Address [facility] [place] [address] Care Team Providers Care Director Telehealth Name Role Phone Osbaldo Dewitt APRN Primary Care Provider [phone] Encounter Details Date Type Department Care Team [...] filedocumented in this encounter Care Teams Director Telehealth Relationship Specialty Start Date End Date Osbaldo Dewitt APRN [address] [place] [phone] PCP - General Family Medicine 12/31/22 documented as of this encounter
--- OUTSIDE RECORDS SUMMARY | 2024-10-22 01:07 | XMS_ITS | Encounter Summary ---
Author Organization [facility] Address [facility] [place] [address] Care Team Providers Care Lead Programmer Analyst Name Role Phone Osbaldo Dewitt APRN Primary Care Provider [phone] Encounter Details Date Type Department Care Team [...] filedocumented in this encounter Care Teams Lead Programmer Analyst Relationship Specialty Start Date End Date Osbaldo Dewitt APRN [address] [place] [phone] PCP - General Family Medicine 12/31/22 documented as of this encounter
--- OUTSIDE RECORDS SUMMARY | 2024-10-22 01:07 | XMS_ITS | Encounter Summary ---
[place] [address] Care Team Providers Care Science Education Professor Name Role Phone Osbaldo Dewitt APRN Primary Care Provider Reason for Referral * Occupational Therapy (Routine) - Closed Specialty Diagnoses / Procedures Referred By Contac t Referred To Contact Occupational Therapy Diagnoses Neuralgia and neuritis Chante Salas APRN [facility] ORTHOPAEDIC [place] [address] [address] Referral ID Status Reason Start Date Expiration Date V isits Requested Visits Authorized [id number] Closed Evaluate and Treat 06/10/2023 12/07/2023 12 12 * Diagnostic Test (Routine) - Closed Specialty Diagnoses / Procedures Referred By Contmorgan t Referred To Contact Neurology Diagnoses Neuralgia and neuritis Chante Salas APRN [facility] ORTHOPAEDIC [place] [address] [facility] [address] [place] [phone] Referral ID Status Reason Start Date Expiration Date V isits Requested Visits Authorized [id number] Closed Test Only 06/10/2023 06/09/2024 1 1 Reason for Visit * Reason Comments Follow Up Surgery 03-11-23 L TSA Encounter Details Date Type Department Care Team (Late st Contact Info) Description 06/10/2023 8:40 AM EDT Office Visit [place] [address] Chante Salas APRN [facility] ORTHOPAEDIC [place] [address] Status post replacement of left shoulder joint [...] NAME: Sandie Manriquez AGE: 63 y.o. MR#: [id number] DATE OF VISIT: 06/10/2023 PERTINENT SURGICAL HISTORY: [...] unspecified documented in this encounter Care Teams Science Education Professor Relationship Specialty Start Date End Date Osbaldo Dewitt APRN [address] [place] [phone] PCP - General Family Medicine 12/31/22 documented as of this encounter
--- OUTSIDE RECORDS SUMMARY | 2024-10-22 01:07 | XMS_ITS | Encounter Summary ---
Author Organization [facility] Address [facility] [place] [address] Care Team Providers Care Train Clerk Name Role Phone Osbaldo Dewitt APRN Primary Care Provider [phone] Encounter Details Date Type Department Care Team [...] on filedocumented in this encounter Care Teams Train Clerk Relationship Specialty Start Date End Date Osbaldo Dewitt APRN [address] [place] [phone] PCP - General Family Medicine 12/31/22 documented as of this encounter
--- OUTSIDE RECORDS SUMMARY | 2024-10-22 01:07 | XMS_ITS | Encounter Summary ---
Author Organization [facility] [place] [address] Care Team Providers Care Chef Concierge Name Role Phone Osbaldo Dewitt APRN Primary Care Provider [phone] Encounter Details Date Type Department Care Team (Late st Contact Info) Description 02/27/2023 Tele[place] [address] Christine Colby MD [facility] [place] [address] Social History Tobacco Use Types Packs/Day Years [...] on filedocumented in this encounter Care Teams Chef Concierge Relationship Specialty Start Date End Date Osbaldo Dewitt APRN [address] [place] [phone] PCP - General Family Medicine 12/31/22 documented as of this encounter
--- OUTSIDE RECORDS SUMMARY | 2024-10-22 01:07 | XMS_ITS | Encounter Summary ---
Author Organization [facility] Address [facility] [place] [address] Care Team Providers Care Chemical Processor Name Role Phone Osbaldo Dewitt APRN Primary Care Provider [phone] Encounter Details Date Type Department Care Team [...] on filedocumented in this encounter Care Teams Chemical Processor Relationship Specialty Start Date End Date Osbaldo Dewitt APRN [address] [place] [phone] PCP - General Family Medicine 12/31/22 documented as of this encounter
--- OUTSIDE RECORDS SUMMARY | 2024-10-22 01:07 | XMS_ITS | Encounter Summary ---
Author Organization [facility] [place] [address] Care Team Providers Care Historic Preservationist Name Role Phone Osbaldo Dewitt APRN Primary Care Provider Encounter Details Date Type Department Care Team (Late st Contact Info) Description 05/16/2023 Orders [place] [address] Rosalee Powers PA [facility] [place] [address] Social History Tobacco Use Types Packs/Day Years [...] on filedocumented in this encounter Care Teams Historic Preservationist Relationship Specialty Start Date End Date Osbaldo Dewitt APRN [address] [place] [phone] PCP - General Family Medicine 12/31/22 documented as of this encounter
--- OUTSIDE RECORDS SUMMARY | 2024-10-22 01:07 | XMS_ITS | Encounter Summary ---
Author Organization [facility] [place] [address] Care Team Providers Care Outlet Manager Name Role Phone Osbaldo Dewitt APRN Primary Care Provider [phone] Encounter Details Date Type Department Care Team [...] on filedocumented in this encounter Care Teams Outlet Manager Relationship Specialty Start Date End Date Osbaldo Dewitt APRN [address] [place] [phone] PCP - General Family Medicine 12/31/22 documented as of this encounter
--- OUTSIDE RECORDS SUMMARY | 2024-10-22 01:07 | XMS_ITS | Encounter Summary ---
Author Organization [facility] [place] [address] Care Team Providers Care Lead Sprinkler Name Role Phone Osbaldo Dewitt Yaron PAGE Primary Care Provider [phone] Reason for Visit * Auth/Cert (Routine) Specialty Diagnoses / Procedures Referred By Chance t Referred To Contact Diagnoses shoulder arthritis Procedures PRO ARTHROPLASTY GLENOHUMERAL JOINT TOTAL SHOULDER PRO REPAIR BICEPS LONG TENDON TOTAL SHOULDER ARTHROPLASTY (WRVU 22.13) MODIFIER BEACH CHAIR SCHLEIN TENODESIS,BICEPS TENDON (PROXIMAL) (WRVU 10.17) Christine Colby MD [facility] [place] [address] [facility] Referral ID Status Reason Start Date Expiration Date Visits Re quested Visits Authorized [id number] 1 1 Encounter Details Date Type Department Care Team (Late st Contact Info) Description 12/09/2023 7:25 AM EST Anesthesia [place] [address] Yuan Oneal MD [facility] [place] [address] Kevin Lynn MD [facility] [place] [address] Anesthesia Record Procedure Summary Procedure Name Responsible [...] 12/09/23 075 by Mey Prince, RN PIV oplh-ztz-rtuvap cath eter system; 18 gauge; metacarpal vein [...] Procedure Summary Date: 12/09/23 Room / Location: [facility] OR [facility] MAIN OR Anesthesia Start: 724 Anesthesia Stop: 934 Procedures: TOTAL SHOULDER ARTHROPLASTY (WRVU 22.13) (Right: Shoulder) MODIFIER SIDUS SHOULDER CHANDLER BIOMET TENODESIS,BICEPS TENDON (PROXIMAL) (WRVU 10.17) (Right: Shoulder) Diagnosis: (shoulder pain) Surgeons: Christine Colby MD Responsible Provider: Yuan Oneal MD Anesthesia Type: general ASA Status: 3 All Anesthesia Providers: Anesthesiologist: Yuan Oneal MD RETAIL RECEIVING CLERK: Selene Hammer CRNA Vitals Value Taken Time BP 132/80 12/09/23 1030 Temp 36 ??C (96.8 ??F) 12/09/23 0934 Pulse 60 12/09/23 1042 Resp 16 12/09/23 1042 SpO2 91 % 12/09/23 1042 Pain Level 0 12/09/23 0934 Vitals shown include unfiled device data. Patient Location: PACU/[facility] Level of Consciousness: Awake and Alert [...] 22.13) performed by Christine Colby MD at [facility] MAIN OR ??? PRO REPAIR BICEPS LONG TENDON Left 03/11/2023 TENODESIS,BICEPS TENDON (PROXIMAL) (WRVU 10.17) performed by Christine Colby MD at [facility] MAIN OR Social History Tobacco Use [...] blood products. Plan discussed with attending and RETAIL RECEIVING CLERK. Anesthesia Screening documented in this encounter Plan [...] Kevin Smith MD ?? Kevin Smith MD MERCURY CRACKING TESTER [facility] documented in this encounter Visit Diagnoses [...] mg documented in this encounter Care Teams Lead Sprinkler Relationship Specialty Start Date End Date Osbaldo Dewitt APRN [address] [place] [phone] PCP - General Family Medicine 12/31/22 documented as of this encounter
--- OUTSIDE RECORDS SUMMARY | 2024-10-22 01:07 | XMS_ITS | Encounter Summary ---
Author Organization [facility] [place] [address] Care Team Providers Care Preschool Principal Name Role Phone Osbaldo Dewitt APRN Primary Care Provider Encounter Details Date Type Department Care Team (Late st Contact Info) Description 07/22/2023 Orders [place] [address] Christine Colby MD [facility] [place] [address] Social History Tobacco Use Types Packs/Day Years [...] on filedocumented in this encounter Care Teams Preschool Principal Relationship Specialty Start Date End Date Osbaldo Dewitt APRN [address] [place] [phone] PCP - General Family Medicine 12/31/22 documented as of this encounter
--- OUTSIDE RECORDS SUMMARY | 2024-10-22 01:07 | XMS_ITS | Encounter Summary ---
Author Organization [facility] [place] [place] [address] Care Team Providers Care Cocoa Milling Machine Operator Name Role Phone Osbaldo Dewitt APRN Primary Care Provider Encounter Details Date Type Department Care Team (Late st Contact Info) Description 02/11/2023 Orders [place] [address] Christine Colby MD [facility] [place]TH[place]ED[place] [address] Chronic pain in left shoulder Social History [...] region documented in this encounter Care Teams Cocoa Milling Machine Operator Relationship Specialty Start Date End Date Osbaldo Dewitt APRN [address] [place] [phone] PCP - General Family Medicine 12/31/22 documented as of this encounter
--- OUTSIDE RECORDS SUMMARY | 2024-10-22 01:08 | XMS_ITS | Encounter Summary ---
Author Organization [facility] [place] [address] Care Team Providers Care Mint Wafer Depositor Name Role Phone Osbaldo Dewitt APRN Primary Care Provider [phone] Encounter Details Date Type Department Care Team [...] on filedocumented in this encounter Care Teams Mint Wafer Depositor Relationship Specialty Start Date End Date Osbaldo Dewitt APRN [address] [place] [phone] PCP - General Family Medicine 12/31/22 documented as of this encounter
--- OUTSIDE RECORDS SUMMARY | 2024-10-22 01:08 | XMS_ITS | Encounter Summary ---
Author Organization [facility] [place] [address] Care Team Providers Care Stores Naval Name Role Phone Kiara Pittman MD Primary Care Provider Encounter Details Date Type Department Care Team (Late st Contact Info) Description 12/24/2022 Ancillary Procedure Radiology Library at [facility] [place] [address] Osbaldo Dewitt, BOAT PILOT [address] [place] [phone] Social History Tobacco Use Types [...] DX Shoulder (12/24/2022 12:00 AM EDT) Narrative [facility] - 01/01/2023 2:39 PM EDT This exam is auto-finalizing. It's purpose is for storage only. Osbaldo Dewitt APRN IM FILM LIBRARY ORD ERABLES [employer], [place] documented in this encounter Visit Diagnoses Not on filedocumented in this encounter Care Teams Stores Naval Relationship Specialty Start Date End Date Kiara Pittman MD PCP - General 08/28/10 12/30/22 documented as of this encounter
--- OUTSIDE RECORDS SUMMARY | 2024-10-22 01:08 | XMS_ITS | Encounter Summary ---
Author Organization [facility] [place] [address] Care Team Providers Care Portable Track Crew Chief Name Role Phone Osbaldo Dewitt APRN Primary Care Provider [phone] Encounter Details Date Type Department Care Team (Late st Contact Info) Description 01/15/2023 Ancillary Procedure Radiology Library at [facility] [place] [address] Christnie Colby MD [facility] ORTHOPAED[place] [address] Social History Tobacco Use Types Packs/Day Years [...] CT Shoulder (01/15/2023 12:00 AM EDT) Narrative [facility] - 01/22/2023 6:30 PM EDT This exam is auto-finalizing. It's purpose is for storage only. Christine Colby MD [facility] FILM LIBRARY ORD ERABLES [place], [place] documented in this encounter Visit Diagnoses Not on filedocumented in this encounter Care Teams Portable Track Crew Chief Relationship Specialty Start Date End Date Osbaldo Dewitt APRN [address] [place] [phone] PCP - General Family Medicine 12/31/22 documented as of this encounter
--- OUTSIDE RECORDS SUMMARY | 2024-10-22 01:08 | XMS_ITS | Encounter Summary ---
Author Organization [facility] Address [facility] [place] [address] Care Team Providers Care Sample Clerk Name Role Phone Osbaldo Dewitt CAMILO Primary Care Provider [phone] Reason for Visit * Reason Onset Date Comments Other 02/10/2023 Encounter Details Date Type Department Care Team (Late st Contact Info) Description 02/10/2023 Telephone [place] [address] Christine Colby MD [facility] [place] [address] Other Social History Tobacco Use Types Packs/Day [...] ways. Best number to reach the caller: [phone] documented in this encounter Plan of Treatment Not on file documented as of this encounter Visit Diagnoses Not on filedocumented in this encounter Care Teams Sample Clerk Relationship Specialty Start Date End Date Osbaldo Dewitt APRN [address] [place] [phone] PCP - General Family Medicine 12/31/22 documented as of this encounter
--- OUTSIDE RECORDS SUMMARY | 2024-10-22 01:08 | XMS_ITS | Encounter Summary ---
Author Organization [facility] [place] [address] Care Team Providers Care Song Lyricist Name Role Phone Osbaldo Dewitt APRN Primary Care Provider [phone] Encounter Details Date Type Department Care Team (Late st Contact Info) Description 01/17/2023 Ancillary Procedure Radiology Library at [facility] [place] [address] Christine Colby MD [facility] [place] [address] Social History Tobacco Use Types Packs/Day Years [...] MR Shoulder (01/17/2023 12:00 AM EDT) Narrative [facility] - 01/22/2023 6:31 PM EDT This exam is auto-finalizing. It's purpose is for storage only. Christine Colby MD [facility] FILM LIBRARY ORD ERABLES [place], [place] documented in this encounter Visit Diagnoses Not on filedocumented in this encounter Care Teams Song Lyricist Relationship Specialty Start Date End Date Osbaldo Dewitt APRN [address] [place] [phone] PCP - General Family Medicine 12/31/22 documented as of this encounter
--- OUTSIDE RECORDS SUMMARY | 2024-10-22 01:08 | XMS_ITS | Encounter Summary ---
Author Organization [facility] [place] [address] Care Team Providers Care Highway Patrol Officer Name Role Phone Osbaldo Dewitt APRN Primary Care Provider [phone] Encounter Details Date Type Department Care Team [...] on filedocumented in this encounter Care Teams Highway Patrol Officer Relationship Specialty Start Date End Date Osbaldo Dewitt APRN [address] [place] [phone] PCP - General Family Medicine 12/31/22 documented as of this encounter
--- OUTSIDE RECORDS SUMMARY | 2024-10-22 01:08 | XMS_ITS | Encounter Summary ---
Author Organization [place] [id number] Care Team Providers Care Internet Sales Manager Name Role Phone Osbaldo Dewitt APRN Primary Care Provider [phone] Reason for Referral * Consultation (Routine) - Closed Specialty Diagnoses / Procedures Referred By Chance le Referred To Contact Orthopaedics Diagnoses Right shoulder pain, unspecified chronicity Chronic pain of both shoulders Osbaldo Dewitt APRN [address] [place] [address] [facility] Orthopaedics [address] [place] [phone] Referral ID Status Reason Start Date Expiration Date V isits Requested Visits Authorized [id number] Closed Consult, Test & Treat PCP Updated and/or Approved 12/31/2022 12/31/2023 6 6 Encounter Details Date Type Department Care Team (Latest Contact Info) Description 12/31/2022 Transcribe Orders eDH Incoming Referrals [phone] Osbaldo Dewitt APRN [address] [place] [address] Right shoulder pain, unspecified chronicity; [...] region documented in this encounter Care Teams Internet Sales Manager Relationship Specialty Start Date End Date Osbaldo Dewitt APRN [address] [place] [phone] PCP - General Family Medicine 12/31/22 documented as of this encounter
--- OUTSIDE RECORDS SUMMARY | 2024-10-22 01:08 | XMS_ITS | Encounter Summary ---
Author Organization [facility] Address [facility] [place] [address] Care Team Providers Care Gallery Host Name Role Phone Osbaldo Dewitt APRN Primary Care Provider [phone] Reason for Visit * Reason Comments Shoulder Pain NXR OS IMAGE TRANSFE R BILATERAL SHOULDER PAIN RIGHT WORSE THAN LEFT 2ND OPINION AND POSSIBLE TRANSFER CARE. * Consultation (Routine) - Closed Specialty Diagnoses / Procedures Referred By Chance le Referred To Contact Orthopaedics Diagnoses Right shoulder pain, unspecified chronicity Chronic pain of both shoulders Osbaldo Dewitt APRN [address] [place] [address] [facility] Orthopaedics [address] [place] [phone] Referral ID Status Reason Start Date Expiration Date V isits Requested Visits Authorized [id number] Closed Consult, Test & Treat PCP Updated and/or Approved 12/31/2022 12/31/2023 6 6 Encounter Details Date Type Department Care Team (Latest Contact Info) Description 02/07/2023 9:00 AM EDT Office Visit [place] [address] Christine Colby MD [facility] DR [place] [address] Primary osteoarthritis of both shoulders [...] - 02/07/2023 9:00 AM EDT Shoulder Service [place], [place] New Patient Evaluation Date of Evaluation: 02/07/2023 Referring Provider: Osbaldo Dewitt History of Present Illness: Sandie Manriquez is a pleasant 62 y.o. 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 She has been dealing with problems for years, but has been especially painful recently. She saw Dr. Patel in [place] and discussed shoulder arthroplasty. At this point, [...] Daily. ??? fluticasone propionate (Flonase) 50 mcg/actuation Gail, Suspension 2 sprays by Nasal route Once [...] M.S. Professor of Orthopaedic Surgery [facility] Department [place] [address] This note was created with Kabanchik voice recognition software. Please excuse any typos. documented in this encounter Plan of Treatment Not on file documented as of this encounter Visit Diagnoses Diagnosis Primary osteoarthritis of both shoulders documented in this encounter Care Teams Gallery Host Relationship Specialty Start Date End Date Osbaldo Dewitt APRN [address] [place] [phone] PCP - General Family Medicine 12/31/22 documented as of this encounter
[2024-10-22 10:42] LABS: HCT 43.3 % (36.0-46.0); HGB 14.7 g/dL (11.2-15.7); MCH 32.7 pg (27.0-33.0); MCHC 33.9 % (32.0-36.0); MCV 96 fL (80-95); Platelet Count 272 10^3/uL (130-400); RDW-SD 46.2 fL
[2024-10-22 11:07] LABS: Hemoglobin A1C 5.3 % (<5.7)
[2024-10-22 11:27] LABS: ALT 15 U/L (14-59); AST 17 U/L (15-37); Albumin 3.9 g/dL (3.4-5.0); Alkaline Phosphatase 73 U/L (46-116); Anion Gap 10.6 mmol/L (3-11); BUN 15 mg/dL (7-18); Bilirubin, Total 0.44 mg/dL (0.2-1.0); CO2 26.4 mmol/L (21.0-32.0); CREATININE 0.9 mg/dL (0.55-1.02); Calcium 9.8 mg/dL (8.5-10.1); Chloride 105 mmol/L (98-107); Estimated GFR 70.95 (mL/min/1.73m2); Glucose 139 mg/dL (74-106); Potassium 3.9 mmol/L (3.5-5.1); Sodium 142 mmol/L (136-145); Total Protein 7.9 g/dL (6.4-8.2)
[2024-10-22 11:28] LABS: Calculated LDL 138 mg/dL (<100); Cholesterol 247 mg/dL (<200); HDL Cholesterol 95 mg/dL (40-60); Triglyceride 70 mg/dL (<150)
--- OUTSIDE RECORDS SUMMARY | 2024-10-22 14:57 | XMS_ITS | Encounter Summary ---
Author Organization [facility] Address [address] [place] [address] Care Team Providers Care Lens Block Gauger Name Role Phone Osbaldo Dewitt NP Primary Care Provider [phone] Reason for Visit * Reason Comments Medications Refill Encounter Details Date Type Department Care Team (Late st Contact Info) Description 01/17/2024 Refill [facility] Integrative Family Medicine [facility] [address] [place] [address] Osbaldo Dewitt NP [address] [place] [address] Medications Refill Social History Tobacco [...] Industry Job Start Date Job End Date [employer] Not on file Not on file [...] Labs (BMP/CMP/LIPID/TSH) : N/A Pharmacy Of Choice: [facility] documented in this encounter Plan of Treatment Upcoming Encounters Date Type Department Care Team (Late st Contact Info) Description 11/11/2024 15:30 EST Office Visit [facility] Integrative Family Medicine [address] [phone] Osbaldo Dewitt NP [address] [place] [phone] documented as of this encounter Visit Diagnoses Diagnosis Anxiety Anxiety state, unspecified Depression, unspecified depression type documented in this encounter Discontinued Medications Medication Sig Discontinue Reason Start Date End Da te venlafaxine (EFFEXOR-XR) 37.5 mg XR capsuleIndications:Anxie ty,Depression, unspecified depression type Take 1 capsule by mouth every day. 09/18/2023 01/19/2024 documented as of this encounter Care Teams Lens Block Gauger Relationship Specialty Start Date End Date Osbaldo Dewitt NP [address] [place] [phone] PCP - General 09/01/19 documented as of this encounter
--- OUTSIDE RECORDS SUMMARY | 2024-10-22 14:57 | XMS_ITS | Encounter Summary ---
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 To supervisor front - please contact patient and schedule PEX. * Telephone Encounter - Laurel Todd RN - 05/19/2024 1553 EDT Medication Requested: Venlafaxine 37.5 mg - 1 tab daily Last OV: 11/11/2023 - pre-op, 09/16/2023 for follow-up Next OV: Visit date not found Last Refill (If required): 01/19/2024 for #90 with 1 refill Pharmacy Of Choice: [facility] pharmacy To PCP - please advise on follow-up needed and refill. documented in this encounter Plan of Treatment Upcoming Encounters Date Type Department Care Team (Late st Contact Info) Description 11/11/2024 15:30 EST Office Visit [facility] Integrative Family Medicine [facility] [address], [place] [id number] Osbaldo Dewitt NP [address] [place] [address] documented as of this encounter Visit Diagnoses Diagnosis Anxiety Anxiety state, unspecified Depression, unspecified depression type documented in this encounter Discontinued Medications Medication Sig Discontinue Reason Start Date End Da te venlafaxine (EFFEXOR-XR) 37.5 mg XR capsuleIndications:Anxie ty,Depression, unspecified depression type TAKE ONE CAPSULE BY MOUTH ONCE DAILY 01/19/2024 05/19/2024 documented as of this encounter Care Teams Diesel Engine Ii Pipe Fitter Relationship Specialty Start Date End Date Osbaldo Dewitt NP [address] [place] [address] PCP - General 09/01/19 documented as of this encounter
--- OUTSIDE RECORDS SUMMARY | 2024-10-22 14:57 | XMS_ITS | Encounter Summary ---
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 Reorder 12/07/2020 08/16/2024 clobetasoL (TEMOVATE) 0.05 % ointment APPLY TOPICALLY TWICE DAILY NEEDED Reorder 08/11/2023 08/16/2024 documented as of this encounter Care Teams Horseback Excavator Relationship Specialty Start Date End Date Osbaldo Dewitt NP [address] [place] [address] PCP - General 09/01/19 documented as of this encounter
--- OUTSIDE RECORDS SUMMARY | 2024-10-22 14:57 | XMS_ITS | Referral Summary ---
Author Organization [facility] Address [address] [place] [address] Care Team Providers Care Junior Buyer Name Role Phone Osbaldo Dewitt NP Primary Care Provider [phone] Encounters Date Type Department Care Team Description 10/04/[address] [address] Osbaldo Dewitt NP Results 09/07/2024 10:45 EST Office Visit [address] [address] Osbaldo Dewitt NP Encounter for annual physical exam (Primary Dx); Need for vaccination; Encounter for screening mammogram for malignant neoplasm of breast; Menopausal and postmenopausal disorder; Cervical cancer screening; Class 2 obesity due to excess calories without serious comorbidity with body mass index (BMI) of 35.0 to 35.9 in adult; Atrial fibrillation, unspecified type (HCC-CMS); Anxiety 08/16/[address] [id number] Osbaldo Dewitt NP Medications Refill 08/16/2024 Refill [facility] [address] [address] Osbaldo Dewitt, QUILL WINDER Medications Refill from Last 3 Months Allergies [...] Take 1 Tablet by mouth daily. Active [id number] ORAL Take by mouth. Activ e acetaminophen [...] = 0.6 oz pur e alcohol) 2/night [facility] Utilities Answer Date Recorded In the past 12 months has [employer], [employer], oil, or water [employer] threatened to shut off services in your [...] in a intermediate (including now)? No 10/15/2023 C - Inadequate Housing Answer Date Re corded What is your living situation today? I have a [facility] place to live 08/25/[address] you li ve. Do you have problems with any of the following? None of the above 08/25/2024 C - Transportation Answer Date Record ed In the past 12 months, has l ack of reliable transportation kept you from medical appointments, meetings, work or from getting things needed for daily living? No 08/25/2024 [facility] - Personal Safety Answer Date [...] scream or curse at you? Never 08/25/2024 [facility] - Financial Strain Answer Date Mango rded How hard is it for you to pa y for the very basics like food, housing, medical care, and heating? Would you say it is: Not hard at all 08/25/2024 [facility] - Employment Answer Date Recorded Do you want help finding or keeping work or a job? I do not need or want help 08/25/2024 [facility] - Social Connections Answer Date Re corded If for any reason you need h elp with day-to-day activities such as bathing, preparing meals, shopping, managing finances, etc., do you get the help you need? I don't need any help 08/25/2024 How often do you feel lonely or isolated from those around you? Rarely 08/25/2024 [facility] - Education Answer Date Recorded Do you speak a language other than Urdu at [facility]? No 08/25/2024 Do you want help with school or training? For example, starting or completing job training or getting a high school diploma, GED or equivalent. 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 atrophy, vaginal sample, hysterectomy) 09/14/2024 14:06 [facility] General Categorization Negative for intraepithelial lesion or malignancy 09/14/2024 14:06 [facility] Attestation . 09/14/2024 14:06 [facility] at 1406 Clinical History Screening cervical cancer 09/14/2024 14:06 [facility] Performing Lab [facility] 09/14/2024 14:06 [facility] Scanned Images 09/14/2024 14:06 [facility] HPV High Risk type 16, PCR Negative 09/14/2024 14:06 [facility] HPV High Risk type 18, PCR Negative 09/14/2024 14:06 [facility] HPV Other High Risk Types, PCR Negative The following Other High Risk HPV types were not detected: 31,33, 35, 39, 45, 51, 52, 56, 58, 59, 66 and 68. 09/14/2024 14:06 [facility] Pap Test CERVIX UTERI STRUCTURE / Unknown 09/07/2024 11:43 EST 09/07/2024 11:43 EST Osbaldo Dewitt NP PATHOLOGY ORDERABLES Final Res ult Performing Organization Address [facility] Co de Phone Number [facility] [address] [place] [phone] * HPV DNA DETECTION WITH GENOTYPING, PCR (09/07/2024 11:43 EST) HPV High Risk type 16, PCR Negative Negative 09/14/2024 14:06 EST [facility] HPV High Risk type 18, PCR Negative Negative 09/14/2024 14:06 EST [facility] HPV other High Risk types, PCR Negative Negative 09/14/2024 14:06 EST [facility] Comment: The following Other High Risk HPV types were not detected: ??31,33, 35, 39, 45, 51, 52, 56, 58, 59, 66 and 68. Pap Test CERVIX UTERI STRUCTURE / Unknown 09/07/2024 11:43 EST 09/13/2024 10:39 EST Osbaldo Dewitt NP MICROBIOLOGY - GENERAL ORDERAB LES Final Result Performing Organization Address [facility] de Phone Number [facility] [address] [place] [phone] * MA BREAST SCREENING JULIAN BILATERAL (03/01/2022 [...] ? High: ?200-499 mg/dl ? Very High: >ld=549 Cholesterol 225(H) <200 mg/dL 12/15/2020 9:04 [facility] Comment: Acceptable: ??<200 Borderline: ??200-239 High: ?> or = 240 Chol/HDL Ratio 3.5 0 - 4.5 12/15/2020 9:04 [facility] Comment: DESIRABLE RATIO IS LESS THAN 4.1 PATIENTS ARE CONSIDERED AT RISK: WOMEN RATIO >5 MEN RATIO >6 FASTING? - [facility] Yes 7:37 [facility] HDL 63(H) 40 - 60 mg/dL 12/15/2020 9:04 EST [facility] Comment: ?? Reference Range Low: ? < 40 ??mg/dL Normal: ??40-60 mg/dL High: ?>= 60 mg/dL LDL CHOLESTEROL - [facility] 145(H) 60 - 100 mg/dL 12/15/2020 9:04 EST [facility] Non HDL Cholesterol 162 mg/dl 12/15/2020 9:04 EST [facility] Comment: Desirable: ?Less than 130 Borderline High: ??130-159 High: ? 160-189 Very High: ?Greater than or equal to 190 12/15/2020 7:37 EST 12/15/2020 7:37 EST Narrative [facility] - 12/15/2020 9:04 EST Does PT Have a Latex Allergy? NO us Osbaldo Dewitt QUILL WINDER CHEMISTRY & BLOOD GAS ORDERABL ES Final Result [facility] [address] [place] [address] from Last 3 Months or Most Recently Relevant to Health Maintenance Insurance MEDICARE [facility] Care Teams Junior Buyer Relationship Specialty Start Date End Date Osbaldo Dewitt NP [address] [place] [address] PCP - General 09/01/19
--- OUTSIDE RECORDS SUMMARY | 2024-10-22 14:57 | XMS_ITS | Encounter Summary ---
Author Organization [facility] Address [address] [place] [address] Care Team Providers Care Waistband Setter Name Role Phone Osbaldo Dewitt NP Primary Care Provider [phone] Reason for Visit * Reason Onset Date Comments Medications Refill 05/27/2024 Encounter Details Date Type Department Care Team (Late st Contact Info) Description 05/27/2024 Refill [facility] Integrative Family Medicine [facility] [address] [place] [address] Osbaldo Dewitt NP [address] [place] [address] Medications Refill Social History Tobacco [...] Industry Job Start Date Job End Date [employer] Not on file Not on file Not on tone e documented as of this encounter Plan of Treatment Upcoming Encounters Date Type Department Care Team (Late st Contact Info) Description 11/11/2024 15:30 EST Office Visit [facility] Integrative Family Medicine [address] [address] Osbaldo Dewitt NP [address] [place] [address] documented as of this encounter Visit Diagnoses Not on filedocumented in this encounter Care Teams Waistband Setter Relationship Specialty Start Date End Date Osbaldo Dewitt NP [address] [place] [address] PCP - General 09/01/19 documented as of this encounter
--- OUTSIDE RECORDS SUMMARY | 2024-10-22 14:57 | XMS_ITS | Encounter Summary ---
Author Organization [facility] Address [address] [place] [address] Care Team Providers Care Supervisor Contact And Service Clerks Name Role Phone Osbaldo Dewitt NP Primary Care Provider [phone] Reason for Referral * Consult (Routine/Next Available) - Authorization Not Required Specialty Diagnoses / Procedures Referred By [facility] Referred To Contact Diagnoses Atrial fibrillation, unspecified type ([facility]) Osbaldo Dewitt NP [address] [place] [address] Phone: tel: fax: Referral ID Status Reason Start Date Expiration Date Visits Requested Visits Authorized [id number] Authorization Not Required Patient Preference 4 1 1 Question Answer Please choose one of the following condition categories: Other Clinical Question Scheduling Comments (optional ? 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 documented in this encounter Plan of Treatment Upcoming Encounters Date Type Department Care Team (Late st Contact Info) Description 11/11/2024 15:30 EST Office Visit [facility] Integrative Family Medicine [place] [id number] Osbaldo Dewitt NP [address] [place], [place] [id number] Scheduled Referrals Name Type Priority Associated Diagnoses Order Schedule AMB CONS/FOLLOW UP CARDIOLOGY Outpatient Referral Routine/Next Available Atrial fibrillation, unspecified type (HCC-CMS) Expected: 06/10/2024 (Approximate), Expires: 05/27/2025 documented as of this encounter Visit Diagnoses Diagnosis Atrial fibrillation, unspecified type (HCC-CMS)- Primary documented in this encounter Care Teams Supervisor Contact And Service Clerks Relationship Specialty Start Date End Date Osbaldo Dewitt NP [address] [place] [address] PCP - General 09/01/19 documented as of this encounter
--- OUTSIDE RECORDS SUMMARY | 2024-10-22 14:57 | XMS_ITS | Encounter Summary ---
Author Organization [facility] Address [address] [place] [address] Care Team Providers Care Inclusion Intern Name Role Phone Osbaldo Dewitt NP Primary Care Provider [phone] Reason for Visit * Reason Onset Date Comments Results 10/04/2024 Encounter Details Date Type Department Care Team (Late st Contact Info) Description 10/04/2024 Telephone [facility] [place] [place] Integrative Family Medicine [facility] [address] [place] [address] Osbaldo Dewitt NP [address] [place] [address] Results Social History Tobacco Use Types Packs/Day Years Used Date Smoking Tobacco: Former Cigarettes 1 1977 Smokeless Tobacco: Never Alcohol Use Standard Drinks/Week Comments Not Currently 0 (1 standard drink = 0.6 oz pur e alcohol) 2/night [facility] Utilities Answer Date Recorded In the past 12 months has [employer] electric, gas, oil, or water company [...] health care facility (including now)? No 10/15/2023 C - Inadequate Housing Answer Date Re corded What is your living situation today? I have a [facility] place to live 08/25/[address] you li ve. Do you have problems with any of the following? None of the above 08/25/2024 [facility] - Transportation Answer Date Record ed In the past 12 months, has l ack of reliable transportation kept you from medical appointments, meetings, work or from getting things needed for daily living? No 08/25/2024 [facility] - Personal Safety Answer Date Recor ded [...] scream or curse at you? Never 08/25/2024 [facility] - Financial Strain Answer Date Mango rded How hard is it for you to pa y for the very basics like food, housing, medical care, and heating? Would you say it is: Not hard at all 08/25/2024 [facility] - Employment Answer Date Recorded Do you want help finding or keeping work or a job? I do not need or want help 08/25/2024 [facility] - Social Connections Answer Date Re corded If for any reason you need h elp with day-to-day activities such as bathing, preparing meals, shopping, managing finances, etc., do you get the help you need? I don't need any help 08/25/2024 How often do you feel lonely or isolated from those around you? Rarely 08/25/2024 [facility] - Education Answer Date Recorded Do you speak a language other than Nigerien at [facility]? No 08/25/2024 Do you want help with school or training? For example, starting or completing job training or getting a high school diploma, GED or equivalent. 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
--- OUTSIDE RECORDS SUMMARY | 2024-10-22 14:57 | XMS_ITS | Clinical Summary ---
Author Organization [facility] Address [address] [place] [address] Care Team Providers Care Plaster Machine Tender Name Role Phone Osbaldo Dewitt NP [...] Take 1 Tablet by mouth daily. Active [id number] ORAL Take by mouth. Activ e acetaminophen [...] Type Department Care Team Description 10/04/[address] [phone] Osbaldo Dewitt NP Results 09/07/2024 10:45 EST Office Visit [address] [phone] Osbaldo Dewitt NP Encounter for annual physical exam (Primary Dx); Need for vaccination; Encounter for screening mammogram for malignant neoplasm of breast; Menopausal and postmenopausal disorder; Cervical cancer screening; Class 2 obesity due to excess calories without serious comorbidity with body mass index (BMI) of 35.0 to 35.9 in adult; Atrial fibrillation, unspecified type ([facility]); Anxiety 08/16/[address] [phone] Osbaldo Dewitt NP Medications Refill 08/16/[address] [address] Osbaldo Dewitt NP Medications Refill [...] GASTRIC FUNDOPLICATION 10/06/2008 - 10/05/2009 Ramy-fundoplication at [facility] CARPAL TUNNEL RELEASE Bilateral 2002, 2023 SHOULDER SURGERY 12/05/2023 - 01/04/[address] Colby - [facility] FINGER TRIGGER RELEASE 10/06/2023 - 10/05/2024 Left [...] = 0.6 oz pur e alcohol) 2/night [facility] Utilities Answer Date Recorded In the past [...] in a usp (including now)? No 10/15/2023 [facility] - Inadequate Housing Answer Date Re corded What is your living situation today? I have a [facility] place to live 08/25/[address] you li ve. Do you have problems with any of the following? None of the above 08/25/2024 [facility] - Transportation Answer Date Record ed In the past 12 months, has l ack of reliable transportation kept you from medical appointments, meetings, work or from getting things needed for daily living? No 08/25/2024 [facility] - Personal Safety Answer Date Recor ded [...] scream or curse at you? Never 08/25/2024 [facility] - Financial Strain Answer Date Mango rded How hard is it for you to pa y for the very basics like food, housing, medical care, and heating? Would you say it is: Not hard at all 08/25/2024 [facility] - Employment Answer Date Recorded Do you want help finding or keeping work or a job? I do not need or want help 08/25/2024 [facility] - Social Connections Answer Date Re corded If for any reason you need h elp with day-to-day activities such as bathing, preparing meals, shopping, managing finances, etc., do you get the help you need? I don't need any help 08/25/2024 How often do you feel lonely or isolated from those around you? Rarely 08/25/2024 [facility] - Education Answer Date Recorded Do you speak a language other than Citizen [place] at [facility]? 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 atrophy, vaginal sample, hysterectomy) 09/14/2024 14:06 [facility] General Categorization Negative for intraepithelial lesion or malignancy 09/14/2024 14:06 [facility] Attestation . 09/14/2024 14:06 [facility] at 1406 Clinical History Screening cervical cancer 09/14/2024 14:06 [facility] Performing Lab [facility] 09/14/2024 14:06 [facility] Scanned Images 09/14/2024 14:06 [facility] HPV High Risk type 16, PCR Negative 09/14/2024 14:06 [facility] HPV High Risk type 18, PCR Negative 09/14/2024 14:06 [facility] HPV Other High Risk Types, PCR Negative The following Other High Risk HPV types were not detected: 31,33, 35, 39, 45, 51, 52, 56, 58, 59, 66 and 68. 09/14/2024 14:06 [facility] Pap Test CERVIX UTERI STRUCTURE / Unknown 09/07/2024 11:43 EST 09/07/2024 11:43 EST us Osbaldo Dewitt NP PATHOLOGY ORDERABLES Final Res ult [facility] [address] [place] [address] * HPV DNA DETECTION WITH GENOTYPING, PCR (09/07/2024 11:43 EST) HPV High Risk type 16, PCR Negative Negative 09/14/2024 14:06 [facility] HPV High Risk type 18, PCR Negative Negative 09/14/2024 14:06 [facility] HPV other High Risk types, PCR Negative Negative 09/14/2024 14:06 EST [facility] Comment: The following Other High Risk HPV types were not detected: ??31,33, 35, 39, 45, 51, 52, 56, 58, 59, 66 and 68. Pap Test CERVIX UTERI STRUCTURE / Unknown 09/07/2024 11:43 EST 09/13/2024 10:39 EST us Osbaldo Dewitt NP MICROBIOLOGY - GENERAL ORDERAB LES Final Result [facility] [address] [place], [place] [phone] * MA BREAST SCREENING JULIAN BILATERAL (03/01/2022 [...] EST) Triglyceride 83 <150 mg/dL 12/15/2020 9:04 [facility] Comment: Adult: Normal: ?<150 mg/dl ? Borderline High: 150-199 mg/dl ? High: ?200-499 mg/dl ? Very High: >mr=437 Cholesterol 225(H) <200 mg/dL 12/15/2020 9:04 [facility] Comment: Acceptable: ??<200 Borderline: ??200-239 High: ?> or = 240 Chol/HDL Ratio 3.5 0 - 4.5 12/15/2020 9:04 [facility] Comment: DESIRABLE RATIO IS LESS THAN 4.1 PATIENTS ARE CONSIDERED AT RISK: WOMEN RATIO >5 MEN RATIO >6 FASTING? - [facility] Yes 7:37 [facility] HDL 63(H) 40 - 60 mg/dL 12/15/2020 9:04 [facility] Comment: ?? Reference Range Low: ? < 40 ??mg/dL Normal: ??40-60 mg/dL High: ?>= 60 mg/dL LDL CHOLESTEROL - [facility] 145(H) 60 - 100 mg/dL 12/15/2020 9:04 [facility] Non HDL Cholesterol 162 mg/dl 12/15/2020 9:04 [facility] Comment: Desirable: ?Less than 130 Borderline High: ??130-159 High: ? 160-189 Very High: ?Greater than or equal to 190 12/15/2020 7:37 EST 12/15/2020 7:37 EST Narrative [facility] - 12/15/2020 9:04 EST Does PT Have a Latex Allergy? NO us Osbaldo Dewitt NP CHEMISTRY & BLOOD GAS ORDERABL ES Final Result Performing Organization Address City/State/[facility] Co de Phone Number [facility] [address] [place] [address] from Last 3 Months or Most Recently Relevant to Health Maintenance Insurance MEDICARE [facility] Care Teams Plaster Machine Tender Relationship Specialty Start Date End Date Osbaldo Dewitt NP [address] [place] [phone] PCP - General 09/01/19
--- OUTSIDE RECORDS SUMMARY | 2024-10-22 14:57 | XMS_ITS | Encounter Summary ---
Author Organization [facility] Address [address] [place] [address] Care Team Providers Care Mutuel Clerk Name Role Phone Osbaldo Dewitt NP Primary Care Provider [phone] Encounter Details Date Type Department Care Team [...] slept in a snf (including now)? 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
--- OUTSIDE RECORDS SUMMARY | 2024-10-22 14:57 | XMS_ITS | Encounter Summary ---
Author Organization [facility] Address [address] [place] [address] Care Team Providers Care Retanner Name Role Phone sObaldo Dewitt NP Primary Care Provider [phone] Reason for Referral * Radiology Services (Routine/Next Available) - Specialty Report Received Specialty Diagnoses / Procedures Referred By Chance le Referred To Contact Diagnoses Menopausal and postmenopausal disorder Procedures DXA BONE DENSITY Osbaldo Dewitt NP [address] [place] [address] Phone: tel: fax: Referral ID Status Reason Start Date Expiration Date V isits Requested Visits Authorized [id number] Specialty Report Received 09/07/2024 1 1 * Radiology Services (Routine/Next Available) - Specialty Report Received Specialty Diagnoses / Procedures Referred By Chance le Referred To Contact Diagnoses Encounter for screening mammogram for malignant neoplasm of breast Procedures MA BREAST SCREENING JULIAN BILATERAL Osbaldo Dewitt NP [address] [place] [address] Phone: tel: fax: Referral ID Status Reason Start Date Expiration Date V isits Requested Visits Authorized [id number] Specialty Report Received 09/07/2024 1 1 * Laboratory Services (Routine/Next Available) - New Request Specialty Diagnoses / Procedures Referred By Chance le Referred To Contact Diagnoses Class 2 obesity due to excess calories without serious comorbidity with body mass index (BMI) of 35.0 to 35.9 in adult Procedures HEMOGLOBIN A1C Osbaldo Dewitt NP [address] [place] [address] Phone: tel: fax: Referral ID Status Reason Start Date Expiration Date V isits Requested Visits Authorized [id number] New Request 09/07/2024 1 1 * Laboratory Services (Routine/Next Available) - New Request Specialty Diagnoses / Procedures Referred By Chance le Referred To Contact Diagnoses Encounter for annual physical exam Procedures COMPREHENSIVE METABOLIC PANEL (CMP) Osbaldo Dewitt NP [address] [place] [address] Phone: tel: fax: Referral ID Status Reason Start Date Expiration Date V isits Requested Visits Authorized [id number] New Request 09/07/2024 1 1 * Laboratory Services (Routine/Next Available) - New Request Specialty Diagnoses / Procedures Referred By Chance le Referred To Contact Diagnoses Encounter for annual physical exam Procedures LIPID PROFILE (INCLUDES CHOLESTEROL, TRIGLYCERIDES, HDL, LDL) Osbaldo Dewitt NP [address] [place] [address] Phone: tel: fax: Referral ID Status Reason Start Date Expiration Date V isits Requested Visits Authorized [id number] New Request 09/07/2024 1 1 Reason for Visit * Reason Comments Annual Exam Encounter Details Date Type Department Care Team (Latest Contact Info) Description 09/07/2024 10:45 EST Office Visit [facility] [place] [facility] [address] [place] [address] Osbaldo Dewitt NP [address] [place], [place] [phone] Encounter for annual physical exam (Primary Dx); Need for vaccination; Encounter for screening mammogram for malignant neoplasm of breast; Menopausal and postmenopausal disorder; Cervical cancer screening; Class 2 obesity due to excess calories without serious comorbidity with body mass index (BMI) of 35.0 to 35.9 in adult; Atrial fibrillation, unspecified type ([facility]); Anxiety Social History Tobacco Use Types Packs/Day Years Used Date Smoking Tobacco: Former Cigarettes 1977 Smokeless Tobacco: Never Alcohol Use Standard Drinks/Week Comments Not Currently 0 (1 standard drink = 0.6 oz pur e alcohol) 2/ [facility] [employer] Answer Date Recorded In the past 12 months has [employer], [employer], oil, or water [employer] threatened to shut off services in your [...] a group home (including now)? No 10/15/2023 [facility] - Inadequate Housing Answer Date Re corded What is your living situation today? I have a [facility] place to live 08/25/[address] you li ve. Do you have problems with any of the following? None of the above 08/25/2024 [facility] - Transportation Answer Date Record ed In the past 12 months, has l ack of reliable transportation kept you from medical appointments, meetings, work or from getting things needed for daily living? No 08/25/2024 [facility] - Personal Safety Answer Date Recor [...] scream or curse at you? Never 08/25/2024 [facility] - Financial Strain Answer Date Mango rded How hard is it for you to pa y for the very basics like food, housing, medical care, and heating? Would you say it is: Not hard at all 08/25/2024 [facility] - Employment Answer Date Recorded Do you want help finding or keeping work or a job? I do not need or want help 08/25/2024 [facility] - Social Connections Answer Date Re corded If for any reason you need h elp with day-to-day activities such as bathing, preparing meals, shopping, managing finances, etc., do you get the help you need? I don't need any help 08/25/2024 How often do you feel lonely or isolated from those around you? Rarely 08/25/2024 [facility] - Education Answer Date Recorded Do you speak a language other than [place]ian at [facility]? No 08/25/2024 Do you want help with school or training? For example, starting or completing job training or getting a high school diploma, GED or equivalent. 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 [facility] Primary Care Preventive Service Visit Subjective: HPI: The 64 y.o. female presents for a routine check-up and exam. CONCERNS: Hypertension/A-fib Managed with diltiazem 240 mg daily, flecainide 100 mg twice daily and atenolol 25 mg QD. Medication adherence is good. Denies chest pain, shortness of breath, new onset edema. Sees cardiology at [facility]. Labs [facility] 10/11/22 Cholesterol Total: 219 LDL: 118 HDL: [...] Cannot find a previous total cholesterol lab HOME AGENT No LMP recorded. Patient is postmenopausal. Last [...] CAM (obstructive sleep apnea) 09/07/2024 Atrial fibrillation ([facility]) 11/11/2023 Glenohumeral arthritis, left 03/11/2023 [...] Left 2023 GASTRIC FUNDOPLICATION 2008 Ramy-fundoplication at [facility] SHOULDER SURGERY Right 12/2023 Dr. Colby - [facility] Family History Problem Relation [...] BY MOUTH AT BEDTIME 90 Capsule 3 [id number] ORAL Take by mouth. No current facility-administered [...] HEMOGLOBIN A1C; Future Atrial fibrillation, unspecified type ([facility]) - flecainide (TAMBOCOR) 100 mg tablet; Take [...] Office Visit [facility] [place] [facility] [address] [address] Osbaldo Dewitt NP [address] [place] [phone] Scheduled Orders Name Type Priority Associated Diagnoses [...] type 16, PCR Negative Negative 09/14/2024 14:[address] [facility] HPV High Risk type 18, PCR Negative Negative 09/14/2024 14:[address] [facility] HPV other High Risk types, PCR Negative Negative 09/14/2024 14:[address] [facility] Comment: The following Other High Risk HPV types were not detected: ??31,33, 35, 39, 45, 51, 52, 56, 58, 59, 66 and 68. Pap Test CERVIX UTERI STRUCTURE / Unknown 09/07/2024 11:43 EST 09/13/2024 10:39 EST us Osbaldo Dewitt NP MICROBIOLOGY - GENERAL ORDERAB LES Final Result [facility] [address] [place] [phone] * PAP TEST (09/07/2024 11:43 EST) Specimens A. Cervix and/or Endocervix , ThinPrep Imaging System with Manual Evaluation 09/14/2024 14:[address] [facility] Specimen Adequacy Satisfactory for Evaluation - assessment of transformation zone component not applicable ( e.g. atrophy, vaginal sample, hysterectomy) 09/14/2024 14:[address] [facility] General Categorization Negative for intraepithelial lesion or malignancy 09/14/2024 14:[address] [facility] Attestation . 09/14/2024 14:[address] [facility] at 1406 Clinical History Screening cervical cancer 09/14/2024 14:[address] [facility] Performing Lab [facility] 09/14/2024 14:[address] [facility] Scanned Images 09/14/2024 14:[address] [facility] HPV High Risk type 16, PCR Negative 09/14/2024 14:[address] [facility] HPV High Risk type 18, PCR Negative 09/14/2024 14:[address] [facility] HPV Other High Risk Types, PCR Negative The following Other High Risk HPV types were not detected: 31,33, 35, 39, 45, 51, 52, 56, 58, 59, 66 and 68. 09/14/2024 14:[address] [facility] Pap Test CERVIX UTERI STRUCTURE / Unknown 09/07/2024 11:43 EST 09/07/2024 11:43 EST us Osbaldo Dewitt NP PATHOLOGY ORDERABLES Final Res ult Performing Organization Address City/State/[facility] Co de Phone Number [facility] [address] [place], [place] [phone] documented in this encounter Visit Diagnoses Diagnosis [...] 35.9 in adult Atrial fibrillation, unspecified type ([facility]) Anxiety Anxiety state, unspecified documented in this [...] 09/07/2024 documented in this encounter Care Teams Retanner Relationship Specialty Start Date End Date Osbaldo Dewitt NP [address] [place] [id number] PCP - General 09/01/19 documented as of this encounter
--- OUTSIDE RECORDS SUMMARY | 2024-10-22 14:57 | XMS_ITS | Encounter Summary ---
Author Organization [facility] Address [address] [place] [address] Care Team Providers Care Nib Finisher Name Role Phone Osbaldo Dewitt NP Primary Care Provider [phone] Reason for Visit * Reason Comments Medications Refill Encounter Details Date Type Department Care Team (Late st Contact Info) Description 08/16/2024 Refill [facility] [address] [place] [address] Osbaldo Dewitt NP [address] [place] [address] Medications Refill Social History Tobacco [...] slept in a long-term (including now)? 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 Not [...] 09/18/2023 Last Labs: 09/16/2023 Pharmacy Of Choice: [facility] documented in this encounter Plan of Treatment Upcoming Encounters Date Type Department Care Team (Late st Contact Info) Description 11/11/2024 15:30 EST Office Visit [facility] [place] [address] Osbaldo Dewitt NP [address] [place] [phone] documented as of this encounter Visit Diagnoses [...] documented as of this encounter Care Teams Nib Finisher Relationship Specialty Start Date End Date Osbaldo Dewitt NP [address] [place] [address] [place] [address] PCP - General 09/01/19 documented as of this encounter
--- OUTSIDE RECORDS SUMMARY | 2024-10-22 14:58 | XMS_ITS | Encounter Summary ---
Author Organization [facility] Address [address] [place] [address] Care Team Providers Care Executive Compensation Analyst Name Role Phone Osbaldo Dewitt NP Primary Care Provider [phone] Unavailable [phone] Reason for Visit * Reason Comments Medications Refill Encounter Details Date Type Department Care Team (Late st Contact Info) Description 02/03/[address] 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 Not on tone e documented as of this encounter Ordered Prescriptions Prescription Sig Dispense Quantity Refills Last Filled Start Date End Date hydroCHLOROthiazid e (HYDRODIURIL) 25 mg tablet TAKE ONE TABLET BY MOUTH ONCE DAILY 90 Tablet 02/03/2023 04/28/2023 documented in this encounter Plan of Treatment Upcoming Encounters Date Type Department Care Team ([facility] Contact Info) Description 11/11/2024 15:30 EST Office Visit [facility] Medicine [address] [phone] Osbaldo Dewitt NP [address] [place] [address] documented as of this encounter Visit Diagnoses Not on filedocumented in this encounter Discontinued Medications Medication Sig Discontinue Reason Start Date End Da te hydroCHLOROthiazide (HYDRODIURIL) 25 mg tablet Take 1 Tablet by mouth daily. 10/28/2022 02/03/2023 documented as of this encounter Care Teams Executive Compensation Analyst Relationship Specialty Start Date End Date Osbaldo Dewitt FASHION DESIGNER [address] [place] [phone] PCP - General 09/01/[address] [place] [phone] Registered Dietitian Clinical Nutrition 10/21/23 documented as of this encounter
--- OUTSIDE RECORDS SUMMARY | 2024-10-22 14:58 | XMS_ITS | Encounter Summary ---
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 tone e documented as of this encounter Ordered Prescriptions Prescription Sig Dispense Quantity Refills Last Filled Start Date End Date venlafaxine (EFFEXOR-XR) 37.5 mg XR capsuleIndications :Anxiety,Depressio n, unspecified depression type TAKE ONE CAPSULE BY MOUTH EVERY DAY 90 Capsule 2 01/30/2023 3 documented in this encounter Miscellaneous Notes * Telephone Encounter - Ruthnan De Oliveira RN - 01/30/2023 0810 EDT [...] Visit [facility] Integrative Family Medicine [address] [phone] Osbaldo Dewitt NP [address] [place] [phone] documented as of this encounter Visit Diagnoses Diagnosis Anxiety Anxiety state, unspecified Depression, unspecified depression type documented in this encounter Discontinued Medications Medication Sig Discontinue Reason Start Date End Da te venlafaxine (EFFEXOR-XR) 37.5 mg XR capsuleIndications:Anxie ty,Depression, unspecified depression type TAKE ONE CAPSULE BY MOUTH EVERY DAY 01/24/2022 01/30/2023 documented as of this encounter Care Teams Inspector Purchased Parts Relationship Specialty Start Date End Date Osbaldo Dewitt NP [address] [place] [phone] PCP - General 09/01/19 documented as of this encounter
--- OUTSIDE RECORDS SUMMARY | 2024-10-22 14:58 | XMS_ITS | Encounter Summary ---
Author Organization [facility] Address [address] [place] [address] Care Team Providers Care Clinical Nursing Assistant Name Role Phone Osbaldo Dewitt NP Primary Care Provider [phone] Reason for Referral * Consult (Routine/Next Available) - Specialty Report Received Specialty Diagnoses / Procedures Referred By Chance le Referred To Contact Diagnoses Chronic pain of both shoulders Osbaldo Dewitt NP Phone: tel: fax: Referral ID Status Reason Start Date Expiration Date Visits Requested Visits Authorized [id number] Specialty Report Received Specialty Services Required 12/26/2022 1 1 Question Answer Reason for Request: bilateral shoulder OA; seeking second opinion for shoulder replacement surgery; seen at 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 [facility] Video Visit Today's [...] left knee. Shehas been seeing orthopedics at [facility] as well as physical therapy. Her PT has recommended discussing rheumatology referral based on her polyarthralgias. Seen by [facility] orthopedics, Dr. Patel 12/25/2022 - for severe [...] shoulders Comments: Referral for second opinion at [facility] sent. Orders: - AMB CONS/FOLLOW UP ORTHOPEDICS [...] Info) Description 11/11/2024 15:30 EST Office Visit [facility] Integrative Family Medicine [facility] [address] [place], [place] [phone] Osbaldo Dewitt NP [address] [place] [address] Scheduled Referrals Name Type Priority [...] region documented in this encounter Care Teams Clinical Nursing Assistant Relationship Specialty Start Date End Date Osbaldo Dewitt NP [address] [place] [address] PCP - General 09/01/19 documented as of this encounter
--- OUTSIDE RECORDS SUMMARY | 2024-10-22 14:58 | XMS_ITS | Encounter Summary ---
Author Organization [facility] Address [address] [place] [address] Care Team Providers Care Credit Products Officer Name Role Phone Osbaldo Dewitt NP Primary Care Provider [phone] Reason for Visit * Reason Onset Date Comments Referral Request 12/17/2022 Encounter Details Date Type Department Care Team (Late st Contact Info) Description 12/17/2022 Telephone [facility] Integrative Family Medicine [facility] [address] [place] [address] Osbaldo Dewitt NP [address] [place] [address] Referral Request Social History Tobacco [...] slept in a halfway (including now)? 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
--- OUTSIDE RECORDS SUMMARY | 2024-10-22 14:58 | XMS_ITS | Encounter Summary ---
Author Organization [facility] Address [address] [place] [address] Care Team Providers Care Filter Press Pumper Name Role Phone Osbaldo Dewitt NP Primary Care Provider [phone] Reason for Visit * Reason Comments Pre-op Exam Encounter Details Date Type Department Care Team (Latest Contact Info) Description 02/20/2023 11:15 EDT Office Visit 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 [facility] Primary Care Preoperative Evaluation Patient ID: Sandie Manriquez is a 62 y.o. female Date of Service: 02/20/2023 Reason for Visit: Pre-op Exam Subjective: History: Left shoulder pain for several years, history of osteoarthritis and partial rotator cuff tear, status post injections with waning benefit. Procedure: L shoulder replacement Surgeon: Dr Lori Colby at [facility] Date: 03/11/2023 Relevant HX: Hypertension, hyperlipidemia, Cronin's [...] suprainguinal vascular surgery): no History of ischemic [place] or a positive exercise test, current complaint [...] BEDTIME, Disp: 90 Capsule, Rfl: 1 ??? [id number]-[id number]-OREG-CAPRYL ORAL, Take by mouth., Disp: , Rfl: [...] 2002 ??? GASTRIC FUNDOPLICATION 2009 [facility]op[facility] [...] BA, AB, BS) Occupational History ??? 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 Smoking status: Former Years: [...] Info) Description 11/11/2024 15:30 EST Office Visit [facility] [address] [place], [place] [phone] Osbaldo Dewitt NP [address] [place] [address] documented as of this encounter Procedures Procedure Name Priority Date/Time Associated Diagnosis Comments POCT HEMOGLOBIN A1C Routine 02/20/2023 Pre-op evaluation Elevated fasting glucose documented in this encounter Results * POCT HEMOGLOBIN A1C (02/20/2023) Hemoglobin A1c, POC 5.6 <=5.7 % [facility] POINT OF CARE Blood CAPILLARY BLOOD / Unknown 02/20/2023 us Osbaldo Dewitt NP POINT OF CARE TEST ORDERABLES Final Result [facility] POINT OF CARE documented in this encounter Visit Diagnoses Diagnosis Primary osteoarthritis of left shoulder- Primary Primary localized osteoarthrosis, shoulder region Pre-op evaluation Preoperative examination, unspecified Elevated fasting glucose Impaired fasting glucose documented in this encounter Historical Medications * This list may reflect changes made after this encounter. [id number] -OREG-CAPRYL ORAL Take by mouth. added in this encounter Care Teams Filter Press Pumper Relationship Specialty Start Date End Date Osbaldo Dewitt NP [address] [place] [address] PCP - General 09/01/19 documented as of this encounter
--- OUTSIDE RECORDS SUMMARY | 2024-10-22 14:58 | XMS_ITS | Encounter Summary ---
Author Organization [facility] Address [address] [place] [address] Care Team Providers Care Icu Registered Nurse Name Role Phone Osbaldo Dewitt NP Primary Care Provider [phone] Unavailable [phone] Reason for Visit * Reason Comments Medications Refill Encounter Details Date Type Department Care Team (Late st Contact Info) Description 10/24/2022 Refill [facility] Integr[facility] Family Medicine [facility] [address] [place], [place] [phone] Osbaldo Dewitt NP [address] [place] [address] Medications Refill Social History Tobacco [...] 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 [...] Info) Description 11/11/2024 15:30 EST Office Visit [facility] [place] [address] Osbaldo Dewitt NP [address] [place], [place] [phone] documented as of this encounter Visit Diagnoses Diagnosis Gastroesophageal reflux disease Esophageal reflux documented in this encounter Discontinued Medications Medication Sig Discontinue Reason Start Date End Da te omeprazole (PRILOSEC) 20 mg capsuleIndications:Gastr oesophageal reflux disease TAKE ONE CAPSULE BY MOUTH AT BEDTIME 10/15/2021 10/25/2022 documented as of this encounter Care Teams Icu Registered Nurse Relationship Specialty Start Date End Date Osbaldo Dewitt NP [address] [place] [address] PCP - General 09/01/[address] [place] [address] Registered Dietitian Clinical Nutrition 10/21/23 documented as of this encounter
--- OUTSIDE RECORDS SUMMARY | 2024-10-22 14:58 | XMS_ITS | Encounter Summary ---
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 [...] 11/11/2024 15:30 EST Office Visit [facility] Family Medicine [address] [phone] Osbaldo Dewitt NP [address] [place] [phone] documented as of this encounter Visit Diagnoses Not on filedocumented in this encounter Discontinued Medications Medication Sig Discontinue Reason Start Date End Da te atenoloL (TENORMIN) 25 mg tablet TAKE 1 TABLET BY MOUTH ONCE DAILY 03/05/2023 05/21/2023 documented as of this encounter Care Teams Trousseau Consultant Relationship Specialty Start Date End Date Osbaldo Dewitt NP [address] [place] [address] PCP - General 09/01/19 documented as of this encounter
--- OUTSIDE RECORDS SUMMARY | 2024-10-22 14:58 | XMS_ITS | Encounter Summary ---
Author Organization [facility] Address [address] [place] [address] Care Team Providers Care Construction Craft Laborer Name Role Phone Osbaldo Dewitt NP Primary Care Provider [phone] Unavailable [phone] Reason for Visit * Reason Comments Medications Refill Encounter Details Date Type Department Care Team (Late st Contact Info) Description 03/05/2023 Refill 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 Not on tone e documented as of this encounter Ordered Prescriptions Prescription Sig Dispense Quantity Refills Last Filled Start Date End Date atenoloL (TENORMIN) 25 mg tablet TAKE 1 TABLET BY MOUTH ONCE DAILY 90 Tablet 03/05/2023 05/21/2023 documented in this encounter Plan of Treatment Upcoming Encounters Date Type Department Care Team ([facility] Contact Info) Description 11/11/2024 15:30 EST Office Visit [facility] Medicine [address] [phone] Osbaldo Dewitt, IMAGE SCIENTIST [address] [place] [address] documented as of this encounter Visit Diagnoses Not on filedocumented in this encounter Discontinued Medications Medication Sig Discontinue Reason Start Date End Da te atenoloL (TENORMIN) 25 mg tablet Take 1 Tablet by mouth daily. Reorder 11/18/2022 03/05/2023 documented as of this encounter Care Teams Construction Craft Laborer Relationship Specialty Start Date End Date Osbaldo Dewitt, IMAGE SCIENTIST [address] [place] [address] PCP - General 09/01/[address] [place] [id number] Registered Dietitian Clinical Nutrition 10/21/23 documented as of this encounter
--- OUTSIDE RECORDS SUMMARY | 2024-10-22 14:58 | XMS_ITS | Encounter Summary ---
Author Organization [facility] Address [address] [place] [address] Care Team Providers Care Manager User Experience Name Role Phone Osbaldo Dewitt NP Primary Care Provider [phone] Reason for Referral * Consult (Routine/Next Available) - Specialty Report Received Specialty Diagnoses / Procedures Referred By Chance le Referred To Contact Diagnoses Class 1 obesity due to excess calories with serious comorbidity and body mass index (BMI) of 34.0 to 34.9 in adult Osbaldo Dewitt NP Phone: tel: fax: [facility] Family Medicine [address] [address] Phone: tel: fax: Referral ID Status Reason Start Date Expiration Date Visits Requested Visits Authorized [id number] Specialty Report Received Specialty Services Required 3 1 1 Question Answer Nutrition/elementary educator/Education: Nutrition, Wellness coaching, Weight loss Reason for Visit * Reason Comments Follow-up ed Encounter Details Date Type Department Care Team (Latest Contact Info) Description 09/16/2023 10:00 EST Office Visit [facility] Family Medicine [facility] [address] [place] [address] Osbaldo Dewitt, CAFETERIA ASSISTANT [address] [place] [address] Atrial fibrillation, unspecified type (HCC-CMS) [...] 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 She presented with complaints of palpitations, shortness of breath and diaphoresis. Seen initially at urgent care and referred to [facility] with A-fib with a heart rate of [...] 2023. Cardiology follow up next week in [place]. Patient was recently discharged from [facility] on 09/06/23. Patient was contacted yes. ASCVD [...] BY MOUTH AT BEDTIME 90 Capsule 3 [id number]-OREG-CAPRYL ORAL Take by mouth. venlafaxine (EFFEXOR-XR) 37.5 [...] for this visit: Atrial fibrillation, unspecified type ([facility]) Comments: Regular rhythm today. Reviewed all outside labs, imaging and notes. Plan to continue diltiazem 180mg daily and Eliquis and f/u with cardiology as scheduled Orders: - MAGNESIUM - COMPREHENSIVE METABOLIC PANEL (CMP) Class 1 obesity due to excess calories with serious comorbidity and body mass index (BMI) of 34.0 to 34.9 in adult - AMB CONS/FOLLOW UP MISSION ASSESSMENT SPECIALIST, SEXTON HELPER AND NUTRITION; Future Alcohol use disorder Comments: Reviewed ETOH use recommendations, declines reduction support. Reviewed benefits of cessation/reducation. Pure hypercholesterolemia Comments: Reviewed labs completed at [facility]. ASCVD risk score 5.6%. Continue [...] Office Visit [facility] Family Medicine [address] [phone] Osbaldo Dewitt NP [address] [place] [address] Scheduled Referrals Name Type Priority Associated Diagnoses Order Schedule AMB CONS/FOLLOW UP MISSION ASSESSMENT SPECIALIST, SEXTON HELPER AND NUTRITION Outpatient Referral Routine/Next Available Class [...] 138 136 - 145 mmol/L 09/17/2023 19:00 [facility] Potassium 4.0 3.5 - 5.0 mmol/L 09/17/2023 19:00 [facility] Chloride 101 96 - 110 mmol/L 09/17/2023 19:00 [facility] CO2 Total 28 22 - 32 mmol/L 09/17/2023 19:00 [facility] Glucose 96 70 - 99 mg/dl 09/17/2023 19:00 [facility] BUN 14 10 - 26 mg/dL 09/17/2023 19:00 [facility] Creatinine 0.56 0.52 - 1.04 mg/dL 09/17/2023 19:00 [facility] eGFR 102 >60 mL/min/1.7 3m2 09/17/2023 19:00 [facility] Total Protein 7.6 6.3 - 8.2 g/dL 09/17/2023 19:00 [facility] Albumin 4.4 3.4 - 4.9 g/dL 09/17/2023 19:00 [facility] Alkaline Phosphatase 58 38 - 126 U/L 09/17/2023 19:00 [facility] AST 31 15 - 46 U/L 09/17/2023 19:00 [facility] ALT 24 <35 U/L 09/17/2023 19:00 [facility] Bilirubin, Total <0.5 <1.4 mg/dL 09/17/20 19:00 [facility] Calcium 9.9 8.5 - 10.5 mg/dL 09/17/2023 19:00 [facility] Albumin/Globulin Ratio 1.4 1.0 - 2.5 g/dL 09/17/2023 19:00 [facility] Anion Gap 9 5 - 14 mmol/L 09/17/2023 19:00 [facility] Blood VENOUS BLOOD / Unknown Venipuncture / Unknown 09/16/2023 10:48 EST 09/16/2023 10:48 EST us Osbaldo Dewitt CAFETERIA ASSISTANT CHEMISTRY & BLOOD GAS ORDERABL ES Final Result Performing Organization Address [facility] Co de Phone Number [facility] [address] [place] [address] * MAGNESIUM (09/16/2023 10:48 EST) Magnesium 1.8 1.7 - 2.8 mg/dL 09/17/2023 19:00 [facility] Blood VENOUS BLOOD / Unknown Venipuncture / Unknown 09/16/2023 10:48 EST 09/16/2023 10:48 EST us Osbaldo Dewitt CAFETERIA ASSISTANT CHEMISTRY & BLOOD GAS ORDERABL ES Final Result Performing Organization Address [facility] Co de Phone Number [facility] [address] [place] [address] documented in this encounter Visit Diagnoses Diagnosis Atrial fibrillation, unspecified type ([facility])- Primary Class 1 obesity due to excess calories with serious comorbidity and body mass index (BMI) of 34.0 to 34.9 in adult Alcohol use disorder Pure hypercholesterolemia documented in this encounter Care Teams Manager User Experience Relationship Specialty Start Date End Date Osbaldo Dewitt NP [address] [place] [address] PCP - General 09/01/19 documented as of this encounter
--- OUTSIDE RECORDS SUMMARY | 2024-10-22 14:58 | XMS_ITS | Encounter Summary ---
Author Organization [facility] Address [address] [place] [address] Care Team Providers Care Recreation Professor Name Role Phone Osbaldo Dewitt NP Primary Care Provider [phone] Reason for Referral * Consult (Routine/Next Available) - Closed Specialty Diagnoses / Procedures Referred By Chance le Referred To Contact Family Medicine Diagnoses Obesity (BMI 35.0-39.9 without comorbidity) Osbaldo Dewitt NP Phone: tel: fax: [facility] Integrative Family Medicine [address] [address] Phone: tel: fax: Referral ID Status Reason Start Date Expiration Date V isits Requested Visits Authorized [id number] Closed Specialty Services Required 11/18/2022 1 1 Question Answer Nutrition/deblocker/Education: Wellness coaching, Weight loss * PT/OT/ST (Routine/Next Available) - Closed Specialty Diagnoses / Procedures Referred By Chance le Referred To Contact Diagnoses Chronic pain of left knee Osbaldo Dewitt NP Phone: tel: fax: Referral ID Status Reason Start Date Expiration Date V isits Requested Visits Authorized [id number] Closed Specialty Services Required 11/18/2022 1 1 Question Answer Reason for Request: left knee pain [facility] - [facility] * Consult (Routine/Next Available) - Closed Specialty Diagnoses / Procedures Referred By Contmorgan t Referred To Contact Diagnoses Chronic pain of left knee Chronic pain of both shoulders Osbaldo Dewitt NP Phone: tel: fax: [address] [place] [address] Phone: tel: Referral ID Status Reason Start Date Expiration Date V isits Requested Visits Authorized [id number] Closed Specialty Services Required 11/18/2022 1 1 Question Answer Reason for Request: left knee pain and bilateral shoulder knee pain [facility] Reason for Visit * Reason Comments Annual Exam Concerns: left knee pain, bilat shoulder pain Encounter Details Date Type Department Care Team (Late st Contact Info) Description 11/18/2022 14:45 EST Office Visit [facility] Integrative Family Medicine [address] [address] Osbaldo Dewitt NP [address] [place], [place] [phone] Encounter for annual physical exam (Primary Dx); [...] 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 Patient is postmenopausal. Last [...] Date ??? GASTRIC FUNDOPLICATION 2009 Ramy-fundoplication at [facility] Family History Problem Relation Age of Onset [...] 35.0-39.9 without comorbidity) - AMB CONS/FOLLOW UP TROLLEY CLEANER, CHILD PSYCHIATRIST AND NUTRITION; Future Need for vaccination Comments: Risk/benefits of vaccination reviewed. Orders: - TDAP (BOOSTRIX) VACCINE =>7YO IM Other orders - atenoloL (TENORMIN) 25 mg tablet; Take 1 Tablet by mouth daily. Blood pressure and BMI goals reviewed. Immunizations reviewed, Tdap given. Fasting lipid and blood glucose reviewed. Mammogram screening ordered. Screening colonoscopy due 2025. DEXA due age 64. Pap/HPV screening due 2095-5761 Discussed safety prevention measures, healthy diet and exercise goals. Follow up: Return for hypertension. Osbaldo Dewitt NP Speech recognition software was used to complete this progress note. Typographical errors may be present. documented in this encounter Plan of Treatment Upcoming Encounters Date Type Department Care Team (Late st Contact Info) Description 11/11/2024 15:30 EST Office Visit [facility] [place] [facility] Family Medicine [address] [phone] Osbaldo Dewitt NP [address] [place], [place] [phone] Scheduled Referrals Name Type Priority Associated Diagnoses Order Schedule AMB CONS/FOLLOW UP ORTHOPEDICS - EXTERNAL Outpatient Referral Routine/Next Available Chronic pain of left knee Chronic pain of both shoulders Expected: 12/16/2022 (Approximate), Expires: 11/18/2023 AMB CONS/FOLLOW UP PHYSICAL THERAPY - OUTSIDE OF NETWORK Outpatient Referral Routine/Next Available Chronic pain of left knee Expected: 11/25/2022 (Approximate), Expires: 11/18/2023 AMB CONS/FOLLOW UP TROLLEY CLEANER, CHILD PSYCHIATRIST AND NUTRITION Outpatient Referral Routine/Next Available Obesity [...] 23 documented in this encounter Care Teams Recreation Professor Relationship Specialty Start Date End Date Osbaldo Dewitt NP [address] [place] [phone] PCP - General 09/01/19 documented as of this encounter
--- OUTSIDE RECORDS SUMMARY | 2024-10-22 14:58 | XMS_ITS | Encounter Summary ---
Author Organization [facility] Address [address] [place] [address] Care Team Providers Care Transcriber Name Role Phone Osbaldo Dewitt RESOURCE MANAGER FORESTER Primary Care Provider [phone] Unavailable [phone] Reason for Visit * Reason Comments Nutrition Counseling Weight * Consult (Routine/Next Available) - Specialty Report Received Specialty Diagnoses / Procedures Referred By Chance le Referred To Contact Diagnoses Class 1 obesity due to excess calories with serious comorbidity and body mass index (BMI) of 34.0 to 34.9 in adult Osbaldo Dewitt NP Phone: tel: fax: [facility] Integrative Family Medicine - [address] [address] Phone: tel: fax: Referral ID Status Reason Start Date Expiration Date Visits Requested Visits Authorized [id number] Specialty Report Received Specialty Services Required 3 1 1 Encounter Details Date Type Department Care Team ([facility] st Contact Info) Description 10/21/2023 9:30 EST Community Health Team [facility] Adult Primary Care - [address] [address] Cht Registered Dietitian, [facility] Adult Social History Tobacco Use Types Packs/Day [...] 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 She hasa [employer] treadmill and knows that mice have gotten in to it and it needs to be cleaned out. Estimated energy requirement: 1900 Estimated intake: 1303-0577 Recommended protein intake: 65-80 g Estimated protein intake: 58-60 g Anticipated inadequate intake of protein, vegetables, fiber, calcium Recommend to increase protein by 20-30 g daily. Recommend Premier Protein beverage mid day Recommend to add 1-2 servings veggies daily Pat plans on working on adding the above and will call [employer] to arrange for an in home service call to clean out machine so she can use it again to start walking more regularly again F/U PRN documented in this encounter Plan of Treatment Upcoming Encounters Date Type Department Care Team (Late st Contact Info) Description 11/11/2024 15:30 EST Office Visit [facility] Integrative Family Medicine [address] [address] Osbaldo Dewitt NP [address] [place] [phone] documented as of this encounter Visit Diagnoses Not on filedocumented in this encounter Care Teams Transcriber Relationship Specialty Start Date End Date Osbaldo Dewitt NP [address] [place] [phone] PCP - General 09/01/[address] [place] [phone] Registered Dietitian Clinical Nutrition 10/21/23 documented as of this encounter
--- OUTSIDE RECORDS SUMMARY | 2024-10-22 14:58 | XMS_ITS | Encounter Summary ---
Author Organization [facility] Address [address] [place] [address] Care Team Providers Care Glass Science Engineer Name Role Phone Osbaldo Dewitt NP Primary Care Provider [phone] Unavailable [phone] Reason for Visit * Reason Comments Medications Refill Encounter Details Date Type Department Care Team (Late st Contact Info) Description 09/04/2022 Refill 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 file Not [...] Upcoming Encounters Date Type Department Care Team ([facility] st Contact Info) Description 11/11/2024 15:30 EST Office Visit [facility] Integrative Family Medicine [address] [phone] Osbaldo Dewitt NP [address] [place] [address] documented as of this encounter Visit [...] documented as of this encounter Care Teams Glass Science Engineer Relationship Specialty Start Date End Date Osbaldo Dewitt NP [address] [place] [phone] PCP - General 09/01/[address] [place] [address] Registered Dietitian Clinical Nutrition 10/21/23 documented as of this encounter
--- OUTSIDE RECORDS SUMMARY | 2024-10-22 14:58 | XMS_ITS | Encounter Summary ---
Author Organization [facility] Address [address] [place] [address] Care Team Providers Care Drivers' Cash Clerk Name Role Phone Osbaldo Dewitt NP Primary Care Provider [phone] Reason for Referral * PT/OT/ST (Routine/Next Available) - Closed Specialty Diagnoses / Procedures [facility] Referred To Contact Diagnoses Chronic left-sided low back pain without sciatica Osbaldo Dewitt NP Phone: tel: fax: Referral ID Status Reason Start Date Expiration Date V isits Requested Visits Authorized [id number] Closed Specialty Services Required 11/11/2023 1 1 Question Answer Reason for Request: left sided low back pain [facility] Reason for Visit * Reason Comments Pre-op Exam Encounter Details Date Type Department Care Team (Late st Contact Info) Description 11/11/2023 11:30 EST Office Visit [facility] Integrative Family Medicine [facility] [address] [place] [address] Osbaldo Dewitt NP [address] [place] [address] Pre-op evaluation (Primary Dx); Shoulder [...] 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 [facility] Primary Care Preoperative Evaluation Patient ID: Sandie Manriquez is a 63 y.o. female Date of Service: 11/11/2023 Reason for Visit: Preop Subjective: History: Right shoulder pain for 4 years, has tried PT, ice/heat, injections x 3 without full benefit. Continues to have chronic pain, difficulty sleeping, diminished ROM Procedure: R total shoulder replacement Surgeon: Christine Colby [place] - [facility] [place]: 12/09/23 Relevant: HX Tobacco: Quit 1977 [...] suprainguinal vascular surgery): no History of ischemic NC or a positive exercise test, current complaint [...] AT BEDTIME, Disp: 90 Capsule, Rfl: 3 [id number]-CAPRYL ORAL, Take by mouth., Disp: , Rfl: [...] esophagus Glenohumeral arthritis, left Atrial fibrillation ([facility]) Past Medical History: Diagnosis Date GERD (gastroesophageal reflux disease) Ramy Fundoplication Past Surgical History: Procedure Laterality Date CARPAL TUNNEL RELEASE Right 2003 GASTRIC FUNDOPLICATION 2009 [facility] [facility] Family History Problem Relation Age of Onset [...] (e.g., BA, AB, BS) Occupational History 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 Tobacco Use Smoking status: Former Current packs/day: [...] (Non-Medical): No Stress: Stress Concern Present (12/05/2020) [employer] - Occupational Stress Questionnaire [...] a major cardiac event; EKG: completed at 10/08/23, interpretation: EKG: October 08, 2023: Sinus [...] Info) Description 11/11/2024 15:30 EST Office Visit [facility] Integrative Family Medicine [address] [place] [address] [address] Osbaldo Dewitt NP [address] [place] [phone] Scheduled Referrals Name Type Priority Associated Diagnoses [...] documented as of this encounter Care Teams Drivers' Cash Clerk Relationship Specialty Start Date End Date Osbaldo Dewitt NP [address] [place] [phone] PCP - General 09/01/19 documented as of this encounter
--- OUTSIDE RECORDS SUMMARY | 2024-10-22 14:58 | XMS_ITS | Encounter Summary ---
Author Organization [facility] Address [address] [place] [address] Care Team Providers Care Certified Recreational Therapist Name Role Phone Osbaldo Dewitt NP Primary Care Provider [phone] Unavailable [phone] Reason for Visit * Reason Onset Date Comments Other 02/13/2023 Encounter Details Date Type Department Care Team (Late st Contact Info) Description 02/13/2023 Telephone [facility] Integrative Family Medicine [facility] [address] [place] [address] Osbaldo Dewitt NP [address] [place] [address] Other Social History Tobacco [...] 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
--- OUTSIDE RECORDS SUMMARY | 2024-10-22 14:58 | XMS_ITS | Encounter Summary ---
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
--- OUTSIDE RECORDS SUMMARY | 2024-10-22 14:58 | XMS_ITS | Encounter Summary ---
Author Organization [facility] Address [address] [place] [address] Care Team Providers Care Early Years Teacher Name Role Phone Osbaldo Dewitt NP Primary Care Provider [phone] Reason for Visit * Reason Comments Medications Refill Encounter Details Date Type Department Care Team (Late st Contact Info) Description 04/25/2023 Refill [facility] Family Medicine [facility] [address] [place] [address] Osbaldo Dewitt NP [address] [place] [address] Medications Refill Social History Tobacco [...] slept in a [facility] (including now)? 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 Not [...] [facility] Family [address] [phone] Osbaldo Dewitt NP [address] [place] [phone] documented as of this encounter Visit Diagnoses Not on filedocumented in this encounter Discontinued Medications Medication Sig Discontinue Reason Start Date End Da te hydroCHLOROthiazide (HYDRODIURIL) 25 mg tablet TAKE ONE TABLET BY MOUTH ONCE DAILY 02/03/2023 04/28/2023 documented as of this encounter Care Teams Early Years Teacher Relationship Specialty Start Date End Date Osbaldo Dewitt NP [address] [place] [phone] PCP - General 09/01/19 documented as of this encounter
--- OUTSIDE RECORDS SUMMARY | 2024-10-22 14:58 | XMS_ITS | Encounter Summary ---
Author Organization [facility] Address [address] [place] [address] Care Team Providers Care Sodder Name Role Phone Osbaldo Dewitt NP Primary Care Provider Reason for Visit * Reason Onset Date Comments Medications Refill 10/27/2023 Encounter Details Date Type Department Care Team (Late st Contact Info) Description 10/27/[address] 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
--- OUTSIDE RECORDS SUMMARY | 2024-10-22 14:58 | XMS_ITS | Encounter Summary ---
Author Organization 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 Reorder 10/28/2022 10/28/2022 documented as of this encounter Care Teams Abe Teacher Relationship Specialty Start Date End Date Osbaldo Dewitt NP [address] [place] [address] PCP - General 09/01/19 documented as of this encounter
--- OUTSIDE RECORDS SUMMARY | 2024-10-22 14:58 | XMS_ITS | Encounter Summary ---
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 Please push XRs to [facility]. * Telephone Encounter - Osbaldo Dewitt NP [...] Info) Description 11/11/2024 15:30 EST Office Visit [facility] Integrative Family Medicine [address] [address] Osbaldo Dewitt NP [address] [place] [address] documented as of this encounter Visit Diagnoses Not on filedocumented in this encounter Care Teams Mixer And Blender Relationship Specialty Start Date End Date Osbaldo Dewitt NP [address] [place] [address] PCP - General 09/01/19 documented as of this encounter
--- OUTSIDE RECORDS SUMMARY | 2024-10-22 14:58 | XMS_ITS | Encounter Summary ---
Author Organization [facility] Address [address] [place] [address] Care Team Providers Care Superintendent Stevedoring Name Role Phone Osbaldo Dewitt NP Primary Care Provider [phone] Reason for Visit * Reason Onset Date Comments Appointment Related 09/12/2022 Encounter Details Date Type Department Care Team (Latest Contact Info) Description 09/12/2022 Orders Only [facility] Integrative Family Medicine [facility] [address] [place] [address] Osbaldo Dewitt NP [address] [place] [address] Encounter for annual physical exam [...] 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 documented in this encounter Plan of Treatment Upcoming Encounters Date Type Department Care Team (Late st Contact Info) Description 11/11/2024 15:30 EST Office Visit [facility] Family [address] [place] [phone] Osbaldo Dewitt NP [address] [place], [place] [phone] documented as of this encounter Visit Diagnoses Diagnosis Encounter for annual physical exam- Primary Primary hypertension Unspecified essential hypertension Pure hypercholesterolemia documented in this encounter Care Teams Superintendent Stevedoring Relationship Specialty Start Date End Date Osbaldo Dewitt NP [address] [place], [place] [phone] PCP - General 09/01/19 documented as of this encounter
--- OUTSIDE RECORDS SUMMARY | 2024-10-22 14:58 | XMS_ITS | Encounter Summary ---
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 Family [address] [address] Osbaldo Dewitt NP [address] [place] [address] documented as of this encounter Visit Diagnoses Not on filedocumented in this encounter Discontinued Medications Medication Sig Discontinue Reason Start Date End Da te clobetasoL (TEMOVATE) 0.05 % ointment Apply topically 2 times daily as needed for Other. 06/24/2023 08/11/2023 documented as of this encounter Care Teams Bee Rancher Relationship Specialty Start Date End Date Osbaldo Dewitt NP [address] [place] [id number] PCP - General 09/01/19 documented as of this encounter
--- OUTSIDE RECORDS SUMMARY | 2024-10-22 14:58 | XMS_ITS | Encounter Summary ---
Author Organization [facility] Address [address] [place] [address] Care Team Providers Care Fire Investigator Name Role Phone Osbaldo Dewitt NP Primary Care Provider [phone] Reason for Referral * Consult (Urgent) - Specialty Report Received Specialty Diagnoses / Procedures Referred By [facility] Referred To Contact Diagnoses Atrial fibrillation, unspecified type ([facility]) Osbaldo Dewitt NP Phone: tel: fax: Referral ID Status Reason Start Date Expiration Date Visits Requested Visits Authorized [id number] Specialty Report Received Specialty Services Required 09/10/2023 1 1 Question Answer [facility] Reason for Request: recently diagnosed with atrial fibrillation with RVR Reason for Visit * Reason Onset Date Comments Follow-up 09/08/2023 Coordination Of Care 09/08/2023 TCM Encounter Details Date Type Department Care Team ([facility] st Contact Info) Description 09/08/2023 Telephone [facility] [address] [place] [address] [address] Follow-up; Coordination Of Care (TCM) Social History [...] 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 * Telephone Encounter - Ruthann De Oliveira RN - 09/08/2023 1159 EST Follow up message sent to patient * Telephone Encounter - Malathi Juan - 09/08/2023 1058 EST Patient calls in for a follow up appointment from an Ed to hospital admission at [facility] for cardiac event. Patient scheduled with pcp on 09/16 documented in this encounter Plan of Treatment Upcoming Encounters Date Type Department Care Team (Late st Contact Info) Description 11/11/2024 15:30 EST Office Visit [facility] Medicine [address] [address] Osbaldo Dewitt NP [address] [place] [address] Scheduled Referrals Name Type Priority [...] 09/18/2023 added in this encounter Care Teams Fire Investigator Relationship Specialty Start Date End Date Osbaldo Dewitt NP [address] [place] [address] PCP - General 09/01/19 documented as of this encounter
--- OUTSIDE RECORDS SUMMARY | 2024-10-22 14:58 | XMS_ITS | Encounter Summary ---
Author Organization [facility] Address [address] [place] [address] Care Team Providers Care Family Law Attorney Name Role Phone Osbaldo Dewitt NP Primary Care Provider [phone] Reason for Visit * Reason Comments Medications Refill Encounter Details Date Type Department Care Team (Late st Contact Info) Description 04/20/2023 Refill [facility] [address] [place] [address] Osbaldo Dewitt NP [address] [place] [address] Medications Refill Social History Tobacco [...] 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 Not on [...] Visit [facility] [address] [phone] Osbaldo Dewitt NP [address] [place] [address] [phone] documented as of this encounter Visit Diagnoses Diagnosis Gastroesophageal reflux disease- Primary Esophageal reflux documented in this encounter Discontinued Medications Medication Sig Discontinue Reason Start Date End Da te omeprazole (PRILOSEC) 20 mg capsuleIndications:Gastr oesophageal reflux disease TAKE ONE CAPSULE BY MOUTH AT BEDTIME 10/25/2022 04/21/2023 documented as of this encounter Care Teams Family Law Attorney Relationship Specialty Start Date End Date Osbaldo Dewitt NP [address] [place] [phone] PCP - General 09/01/19 documented as of this encounter
--- OUTSIDE RECORDS SUMMARY | 2024-10-22 14:58 | XMS_ITS | Encounter Summary ---
Author Organization [facility] Address [address] [place] [address] Care Team Providers Care Hand Sample Maker Name Role Phone Osbaldo Dewitt NP Primary Care Provider [phone] Reason for Visit * Reason Onset Date Comments Medications Refill 01/29/2022 Encounter Details Date Type Department Care Team (Late st Contact Info) Description 01/29/2022 Refill 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 Reorder 01/29/2022 documented as of this encounter Care Teams Hand Sample Maker Relationship Specialty Start Date End Date Osbaldo Dewitt NP [address] [place] [address] PCP - General 09/01/19 documented as of this encounter
--- OUTSIDE RECORDS SUMMARY | 2024-10-22 14:58 | XMS_ITS | Encounter Summary ---
Author Organization [facility] Address [address] [place] [address] Care Team Providers Care Performance Solutions Specialist Name Role Phone Osbaldo Dewitt NP Primary Care Provider [phone] Reason for Visit * Reason Comments Medications Refill Encounter Details Date Type Department Care Team (Late st Contact Info) Description 10/24/[address] 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
--- OUTSIDE RECORDS SUMMARY | 2024-10-22 14:58 | XMS_ITS | Encounter Summary ---
Author Organization [facility] Address [address] [place] [address] Care Team Providers Care Mail Carrier Technician Name Role Phone Osbaldo Dewitt NP Primary Care Provider [phone] Reason for Referral * Radiology Services (Routine/Next Available) - Authorization Not Required Specialty Diagnoses / Procedures Referred By Chance le Referred To Contact Diagnoses Encounter for screening mammogram for malignant neoplasm of breast Procedures MA BREAST SCREENING JULIAN BILATERAL Osbaldo Dewitt NP Phone: tel: fax: [facility] Referral ID Status Reason Start Date Expiration Date Visits Requested Visits Authorized [id number] Authorization Not Required 11/22/2021 1 1 Reason for Visit * Radiology Services (Routine/Next Available) - Authorization Not Required Specialty Diagnoses / Procedures Referred By Chance le Referred To Contact Diagnoses Encounter for screening mammogram for malignant neoplasm of breast Procedures MA BREAST SCREENING JULIAN BILATERAL Osbaldo Dewitt NP Phone: tel: fax: [facility] Referral ID Status Reason Start Date Expiration Date Visits Requested Visits Authorized [id number] Authorization Not Required 11/22/2021 1 1 Encounter Details Date Type Department Care Team (Latest Contact Info) Description 03/01/2022 7:48 EDT - 03/01/2022 23:[address] 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
--- OUTSIDE RECORDS SUMMARY | 2024-10-22 14:58 | XMS_ITS | Encounter Summary ---
Author Organization [facility] Address [address] [place] [address] Care Team Providers Care Engineering Technology Instructor Name Role Phone Osbaldo Dewitt NP Primary Care Provider [phone] Unavailable [phone] Reason for Visit * Reason Onset Date Comments Labs Only 09/12/2022 Encounter Details Date Type Department Care Team (Late st Contact Info) Description 09/12/2022 Telephone [facility] Family Medicine [facility] [address] [place] [address] Osbaldo Dewitt NP [address] [place] [address] Labs Only Social History Tobacco [...] 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 Let me know when done and i'll call out to her. documented in this encounter Plan of Treatment Upcoming Encounters Date Type Department Care Team (Late st Contact Info) Description 11/11/2024 15:[address] [facility] Integrative Family Medicine [address] [address] Osbaldo Dewitt NP [address] [place] [phone] documented as of this encounter Visit Diagnoses Not on filedocumented in this encounter Care Teams Engineering Technology Instructor Relationship Specialty Start Date End Date Osbaldo Dewitt NP [address] [place] [address] PCP - General 09/01/[address] [place] [phone] Registered Dietitian Clinical Nutrition 10/21/23 documented as of this encounter
--- OUTSIDE RECORDS SUMMARY | 2024-10-22 14:58 | XMS_ITS | Encounter Summary ---
Author Organization [facility] Address [address] [place] [address] Care Team Providers Care Rail Filler Name Role Phone Osbaldo Dewitt NP Primary Care Provider [phone] Reason for Visit * Reason Onset Date Comments Labs Only 11/05/2022 Encounter Details Date Type Department Care Team (Late st Contact Info) Description 11/05/2022 Telephone [facility] Integr[facility] Family Medicine [employer] [address] [place] [address] Osbaldo Dewitt NP [address] [place] [address] Labs Only Social History Tobacco [...] 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
--- OUTSIDE RECORDS SUMMARY | 2024-10-22 14:58 | XMS_ITS | Encounter Summary ---
Author Organization [facility] Address [address] [place] [address] Care Team Providers Care Tank Tender Name Role Phone Osbaldo Dewitt NP Primary Care Provider [phone] Encounter Details Date Type Department Care Team [...] in a care home (including now)? 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
--- OUTSIDE RECORDS SUMMARY | 2024-10-22 14:58 | XMS_ITS | Encounter Summary ---
Author Organization [facility] Address [address] [place] [address] Care Team Providers Care Service Desk Director Name Role Phone Osbaldo Dewitt NP Primary Care Provider [phone] Unavailable [phone] Reason for Visit * Reason Comments Medications Refill Encounter Details Date Type Department Care Team (Late st Contact Info) Description 12/27/2022 Refill [facility] [address] [place], [place] [phone] Osbaldo Dewitt NP [address] [place] [address] Medications Refill Social History Tobacco [...] 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 Not on [...] Upcoming Encounters Date Type Department Care Team ([facility] st Contact Info) Description 11/11/2024 15:30 EST Office Visit [facility] Integrative Family Medicine [address] [phone] Osbaldo Dewitt NP [address] [place] [phone] documented as of this encounter Visit Diagnoses Diagnosis Rosacea documented in this encounter Discontinued Medications Medication Sig Discontinue Reason Start Date End Da te doxycycline (PERIOSTAT) 20 mg tabletIndications:Rosace a TAKE TWO TABLETS BY MOUTH EVERY DAY 12/24/2021 12/30/2022 documented as of this encounter Care Teams Service Desk Director Relationship Specialty Start Date End Date Osbaldo Dewitt NP [address] [place] [phone] PCP - General 09/01/[address] [place] [phone] Registered Dietitian Clinical Nutrition 10/21/23 documented as of this encounter
--- OUTSIDE RECORDS SUMMARY | 2024-10-22 14:58 | XMS_ITS | Encounter Summary ---
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 file [...] Info) Description 11/11/2024 15:30 EST Office Visit [facility] Integrative Family Medicine [address] [address] Osbaldo Dewitt NP [address] [place], [place] [phone] documented as of this encounter Visit Diagnoses Diagnosis Primary hypertension- Primary Unspecified essential hypertension documented in this encounter Discontinued Medications Medication Sig Discontinue Reason Start Date End Da te losartan (COZAAR) 100 mg tabletIndications:Primary hypertension TAKE ONE TABLET BY MOUTH EVERY DAY 09/05/2022 12/17/2022 documented as of this encounter Care Teams Med Surg Nurse Relationship Specialty Start Date End Date Osbaldo Dewitt NP [address] [place] [address] PCP - General 09/01/19 documented as of this encounter
--- OUTSIDE RECORDS SUMMARY | 2024-10-22 14:58 | XMS_ITS | Encounter Summary ---
Author Organization [facility] Address [address] [place] [address] Care Team Providers Care Picking Machine Operator Name Role Phone Osbaldo Dewitt NP Primary Care Provider [phone] Reason for Visit * Reason Comments Medications Refill Encounter Details Date Type Department Care Team (Late st Contact Info) Description 07/23/[address] 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 Pt notified via [employer] that she needs to get labs done. documented in this encounter Plan of Treatment Upcoming Encounters Date Type Department Care Team (Late st Contact Info) Description 11/11/2024 15:30 EST Office Visit [facility] [address] [phone] Osbaldo Dewitt NP [address] [place] [phone] documented as of this encounter Visit Diagnoses Not on filedocumented in this encounter Discontinued Medications Medication Sig Discontinue Reason Start Date End Da te hydroCHLOROthiazide (HYDRODIURIL) 25 mg tablet Take 1 Tablet by mouth daily. 11/20/2021 07/24/2022 documented as of this encounter Care Teams Picking Machine Operator Relationship Specialty Start Date End Date sObaldo Dewitt NP [address] [place] [phone] PCP - General 09/01/19 documented as of this encounter
--- OUTSIDE RECORDS SUMMARY | 2024-10-22 14:58 | XMS_ITS | Encounter Summary ---
Author Organization [facility] Address [address] [place] [address] Care Team Providers Care Precision Optical Goods Worker Name Role Phone Osbaldo Dewitt NP Primary Care Provider [phone] Reason for Visit * Reason Onset Date Comments Medications Refill 06/24/2023 Encounter Details Date Type Department Care Team (Late st Contact Info) Description 06/24/2023 Refill [facility] Integrative Family Medicine [facility] [address] [place] [address] Osbaldo Dewitt NP [address] [place] [address] Medications Refill Social History Tobacco [...] 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 Reorder 01/29/2022 06/24/2023 documented as of this encounter Care Teams [employer] Worker Relationship Specialty Start Date End Date Osbaldo Dewitt NP [address] [place] [phone] PCP - General 09/01/19 documented as of this encounter
--- OUTSIDE RECORDS SUMMARY | 2024-10-22 14:58 | XMS_ITS | Encounter Summary ---
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
--- OUTSIDE RECORDS SUMMARY | 2024-10-22 14:58 | XMS_ITS | Encounter Summary ---
Author Organization [facility] Address [address] [place] [address] Care Team Providers Care Credit Administration Manager Name Role Phone Osbaldo Dewitt NP Primary Care Provider Andrey Johnson RD Unavailable [phone] Reason for Visit * Reason Comments Other Encounter Details Date Type Department Care Team (Late st Contact Info) Description 05/27/2022 [facility] Medicine [facility] [address] [place] [address] Osbaldo Dewitt NP [address] [place] [address] Other Social History Tobacco Use [...] 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 Family [address] [phone] Osbaldo Dewitt NP [address] [place] [phone] documented as of this encounter Visit Diagnoses Diagnosis Primary hypertension- Primary Unspecified essential hypertension Pure hypercholesterolemia documented in this encounter Discontinued Medications Medication Sig Discontinue Reason Start Date End Da te losartan (COZAAR) 100 mg tablet Take 1 Tablet by mouth daily. 11/20/2021 05/27/2022 documented as of this encounter Care Teams Credit Administration Manager Relationship Specialty Start Date End Date Osbaldo Dewitt NP [address] [place] [phone] PCP - General 09/01/[address] [place] [address] Registered Dietitian Clinical Nutrition 10/21/23 documented as of this encounter
--- OUTSIDE RECORDS SUMMARY | 2024-10-22 14:59 | XMS_ITS | Encounter Summary ---
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
--- OUTSIDE RECORDS SUMMARY | 2024-10-22 14:59 | XMS_ITS | Encounter Summary ---
Author Organization [facility] Address [address] [place] [address] Care Team Providers Care Rn Labor Delivery Name Role Phone Osbaldo Dewitt NP Primary Care Provider [phone] Reason for Visit * Reason Comments Insect Bite Encounter Details Date Type Department Care Team (Late st Contact Info) Description 08/13/2020 15:40 EST [place] [place] [address] [place], [place] [id number] Nava Garnica PA-C [address] [facility] [address] [place] [address] Local reaction to insect sting, [...] For patients, please refer to guidance in [employer] on how to locate information. Generally this information will appear as a scanned documents saved in My Documents activity. documented in this encounter Plan of Treatment Upcoming Encounters Date Type Department Care Team (Late st Contact Info) Description 11/11/2024 15:30 EST Office Visit [address] [address] Osbaldo Dewitt NP [address] [place] [address] documented as of this encounter Visit [...] 09/13 documented in this encounter Care Teams Rn Labor Delivery Relationship Specialty Start Date End Date Osbaldo Dewitt NP [address] [place] [address] PCP - General 09/01/19 documented as of this encounter
--- OUTSIDE RECORDS SUMMARY | 2024-10-22 14:59 | XMS_ITS | Encounter Summary ---
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 Integrative Family Medicine [address] [address] Osbaldo Dewitt NP [address] [place] [address] documented as of this encounter Visit Diagnoses Not on filedocumented in this encounter Care Teams Automotive Porter Relationship Specialty Start Date End Date Osbaldo Dewitt NP [address] [place] [address] PCP - General 09/01/19 documented as of this encounter
--- OUTSIDE RECORDS SUMMARY | 2024-10-22 14:59 | XMS_ITS | Encounter Summary ---
Author Organization [facility] Address [address] [place] [address] Care Team Providers Care Bundle Breaker Name Role Phone Osbaldo Dewitt NP Primary Care Provider [phone] Reason for Visit * Reason Comments Follow-up EC, vertigo, hematur ia/see new UA results Encounter Details Date Type Department Care Team (Late st Contact Info) Description 05/31/2021 9:00 EDT Telemedicine [facility] [place] [facility] [address] [place] [address] Osbaldo Dewitt, EMERGENCY DEPARTMENT RN [address] [place] [address] Vertigo (Primary Dx); Asymptomatic microscopic [...] 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 [facility] Visit Today's visit was provided through [...] [facility] Family [address] [address] Osbaldo Dewitt NP [address] [place], [place] [id number] documented as of this encounter Visit Diagnoses Diagnosis Vertigo- Primary Dizziness and giddiness Asymptomatic microscopic hematuria documented in this encounter Care Teams Bundle Breaker Relationship Specialty Start Date End Date Osbaldo Dewitt NP [address] [place] [address] PCP - General 09/01/19 documented as of this encounter
--- OUTSIDE RECORDS SUMMARY | 2024-10-22 14:59 | XMS_ITS | Encounter Summary ---
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 [...] Info) Description 11/11/2024 15:30 EST Office Visit [address] [address] Osbaldo Dewitt NP [address] [place] [address] documented as of this encounter Visit Diagnoses Diagnosis Essential hypertension- Primary Unspecified essential hypertension documented in this encounter Discontinued Medications Medication Sig Discontinue Reason Start Date End Da te losartan-hydrochlorothiaz juanita (HYZAAR) 100-25 mg per tabletIndications:Essenti al hypertension TAKE ONE TABLET BY MOUTH EVERY DAY 12/13/2020 04/16/2021 documented as of this encounter Care Teams Materials Tech Relationship Specialty Start Date End Date Osbaldo Dewitt NP [address] [place] [address] PCP - General 09/01/19 documented as of this encounter
--- OUTSIDE RECORDS SUMMARY | 2024-10-22 14:59 | XMS_ITS | Encounter Summary ---
Author Organization [facility] Address [address] [place] [address] Care Team Providers Care Regional Sales Consultant Name Role Phone Osbaldo Dewitt NP Primary Care Provider [phone] Reason for Visit * Reason Onset Date Comments Medication Problem 11/19/2021 Encounter Details Date Type Department Care Team (Late st Contact Info) Description 11/19/2021 Telephone [facility] [place] [facility] [place] [facility] [address] [place] [address] Osbaldo Dewitt NP [address] [place] [address] Medication Problem Social History Tobacco [...] 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
--- OUTSIDE RECORDS SUMMARY | 2024-10-22 14:59 | XMS_ITS | Encounter Summary ---
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 Not on tone e documented as of this encounter Plan of Treatment Upcoming Encounters Date Type Department Care Team (Late st Contact Info) Description 11/11/2024 15:30 EST Office Visit [facility] Integrative Family Medicine [facility] [address] [place] [address] Osbaldo Dewitt NP [address] [place] [address] documented as of this encounter Procedures Procedure Name Priority Date/Time Associated Diagnosis Comments [place]/COMPLETE [place] [facility] [place] Routine 05/22/2021 10:23 EDT documented in this encounter Results * URINALYSIS/COMPLETE - [facility] (05/22/2021 10:23 EDT) URINE APPEARANCE - [facility] Clear CLEAR 05/22/2021 12:22 [facility] URINE BACTERIA - [facility] NEG 05/22/2021 13:17 [facility] URINE BILIRUBIN - [facility] [place] [facility] Negative NEGATIVE 05/22/2021 12:22 [facility] URINE BLOOD - [facility] Trace NEG 05/22/2021 12:22 [facility] URINE COLOR - [facility] Yellow YELLOW 05/22/2021 12:22 [facility] URINE GLUCOSE - [place] - [facility] Negative NEGATIVE 05/22/2021 12:22 [facility] URINE KETONE - [facility] Negative NEGATIVE 05/22/2021 12:22 [facility] URINE LEUK ESTERASE - [facility] Negative NEG 05/22/2021 12:22 [facility] URINE NITRITE - [place] - [facility] Negative NEG 05/22/2021 12:22 [facility] URINE PH - [facility] 7.0 4.0 - 8.0 12:22 [facility] URINE PROTEIN - [place] [facility] Negative NEG 05/22/2021 12:22 [facility] URINE RBC - [facility] RARE rbc/hpf 05/22/20 13:17 [facility] URCULTIF+? - [facility] No Culture Indicated 05/22/2021 13:17 [facility] Comment:CULTURE IS NOT INDIC ATED, BASED ON RESULTS OF THE URINALYSIS URINE SPECIFIC GRAVITY - [facility] 1.010 1.001 - 1.035 05/22/2021 12:22 [facility] URINE SQUAMOUS CELLS - [facility] RARE NEG #/hpf 05/22/2021 13:17 [facility] URINE UROBILINOGEN - [facility] [facility] 0.2 0.2 - 1.0 05/22/2021 12:22 [facility] URINE WBC - [facility] NEG NEG wbc/hpf 021 13:17 EDT [facility] 05/22/2021 10:2 3 EDT 05/22/2021 10:23 EDT Narrative [facility] - 05/22/2021 13:17 EDT Does PT Have a Latex Allergy? NO us Osbaldo Dewitt NP CHEMISTRY & BLOOD GAS ORDERABL ES Final Result [facility] [address] [place] [address] documented in this encounter Visit Diagnoses Not on filedocumented in this encounter Care Teams Rehab Services Aide Relationship Specialty Start Date End Date Osbaldo Dewitt, SG [address] [place] [address] PCP - General 09/01/19 documented as of this encounter
--- OUTSIDE RECORDS SUMMARY | 2024-10-22 14:59 | XMS_ITS | Encounter Summary ---
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 Not on tone e documented as of this encounter Plan of Treatment Upcoming Encounters Date Type Department Care Team (Late st Contact Info) Description 11/11/2024 15:30 EST Office Visit [facility] Integrative Family Medicine [facility] [address] [place] [address] Osblado Dewitt NP [address] [place] [address] documented as of this encounter Visit Diagnoses Diagnosis Other microscopic hematuria- Primary documented in this encounter Care Teams Optical Glass Etcher Relationship Specialty Start Date End Date Osbaldo Dewitt NP [address] [place] [address] PCP - General 09/01/19 documented as of this encounter
--- OUTSIDE RECORDS SUMMARY | 2024-10-22 14:59 | XMS_ITS | Encounter Summary ---
Author Organization [facility] Address [address] [place] [address] Care Team Providers Care Clinic Cma Name Role Phone Osbaldo Dewitt NP Primary Care Provider [phone] Reason for Referral * PT/OT/ST (Routine) - Closed Specialty Diagnoses / Procedures [facility] Referred To Contact Diagnoses BPPV (benign paroxysmal positional vertigo), right Nava Garnica PA-C Phone: tel: fax: [facility] [address] [place] [address] Phone: tel: fax: Referral ID Status Reason Start Date Expiration Date V isits Requested Visits Authorized [id number] Closed Specialty Services Required 05/07/2021 1 1 Question Answer Reason for Request: Suspect R sided BPPV, please eval and treat. 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 [facility] Patient Instructions Benign Paroxysmal Positional Vertigo (BPPV): [...] Where can you learn more? Go to [email or web address] or log into your [employer] account at [email or web address] Enter P372 in the search box to learn more about Benign Paroxysmal Positional Vertigo (BPPV): CareInstructions. Current as of: January 19, 2020?Content Version: 12.6 ?? [employer]. Care instructions adapted under license by [facility]. If you have questions about a medical condition or this instruction, always ask your healthcare professional. [employer] disclaims any warranty or liability for your [...] RN or in discussion with available provider (GAMBLING BROKER's and CCA's can defer to Charge Nurse to complete triage when appropriate) PCP: Osbaldo Dewitt * Nava Garnica PA-C - 05/07/2021 1200 EDT [facility] Chief Complaint(s): Chief Complaint Patient [...] [facility] Family Medicine [address] [id number] Osbaldo Dewitt, SG [address] [place] [address] Scheduled Referrals Name Type Priority [...] POINT OF CARE TEST ORDERABLES Final Result [facility] POINT OF CARE documented in this encounter Visit Diagnoses Diagnosis BPPV (benign paroxysmal positional vertigo), right- Primary Asymptomatic microscopic hematuria documented in this encounter Discontinued Medications Medication Sig Discontinue Reason Start Date End Da te clobetasoL (TEMOVATE) 0.05 % creamIndications:Lichen sclerosus et atrophicus Apply topically once a week prn Error 11/15/2020 05/07/2021 documented as of this encounter Care Teams Clinic Cma Relationship Specialty Start Date End Date Osbaldo Dewitt NP [address] [place] [address] PCP - General 09/01/19 documented as of this encounter
--- OUTSIDE RECORDS SUMMARY | 2024-10-22 14:59 | XMS_ITS | Encounter Summary ---
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
--- OUTSIDE RECORDS SUMMARY | 2024-10-22 14:59 | XMS_ITS | Encounter Summary ---
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
--- OUTSIDE RECORDS SUMMARY | 2024-10-22 14:59 | XMS_ITS | Encounter Summary ---
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 Transcribed Date/Time: 12/15/2020 (151) ? Tool Planner: ? Printed Date/Time: 12/15/2020 (6674) ? PAGE 1 ? Signed Report ? [...] O MD CC: Transcribed Date/Time: 12/15/2020 (1513) Tool Planner: Printed Date/Time: 12/15/2020 (5438) PAGE 1 Signed Report us Osbaldo Dewitt GUEST SERVICES ASSOCIATE IMG MAMMOGRAPHY ORDERABLES Fin al Result * [...] CC: ? Transcribed Date/Time: 12/15/2020 (0836) ? Tool Planner: ? Printed Date/Time: 12/15/2020 (0837) ? PAGE [...] Aguirre MD CC: Transcribed Date/Time: 12/15/2020 (0836) Tool Planner: Printed Date/Time: 12/15/2020 (0837) PAGE 1 Signed Report us Osbaldo Dewitt NP IMG DIAGNOSTIC IMAGING ORDERAB LES Final Result documented in this encounter Visit Diagnoses Not on filedocumented in this encounter Care Teams Supervisor Calibration Relationship Specialty Start Date End Date Osbaldo Dewitt NP [address] [place] [address] PCP - General 09/01/[address] [place] [address] Registered Dietitian Clinical Nutrition 10/21/23 documented as of this encounter
--- OUTSIDE RECORDS SUMMARY | 2024-10-22 14:59 | XMS_ITS | Encounter Summary ---
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 C spine XR shows advanced facet arthrosis with multilevel spondylolisthesis and mild translational change with flexion/extension. Let's have her continue plan for PT, if not improving, we'll have her see spine medicine. documented in this encounter Plan of Treatment Upcoming Encounters Date Type Department Care Team (Late st Contact Info) Description 11/11/2024 15:30 EST Office Visit [facility] Integrative Family Medicine [address] [address] Osbaldo Dewitt NP [address] [place] [address] documented as of this encounter Visit Diagnoses Not on filedocumented in this encounter Care Teams Radiopharmacist Relationship Specialty Start Date End Date Osbaldo Dewitt NP [address] [place] [address] PCP - General 09/01/19 documented as of this encounter
--- OUTSIDE RECORDS SUMMARY | 2024-10-22 14:59 | XMS_ITS | Encounter Summary ---
Author Organization [facility] Address [address] [place] [address] Care Team Providers Care Electric Operator Name Role Phone Osbaldo Dewitt NP Primary Care Provider [phone] Reason for Visit * Reason Comments Other Encounter Details Date Type Department Care Team (Late st Contact Info) Description 02/03/2020 Refill [facility] [place] [facility] Family Medicine [address] [address] Osbaldo Dewitt NP [address] [place] [address] Other Social History Tobacco Use [...] Description 11/11/2024 15:[address] [facility] Family [address] [address] Osbaldo Dewitt NP [address] [place] [address] documented as of this encounter [...] documented as of this encounter Care Teams Electric Operator Relationship Specialty Start Date End Date Osbaldo Dewitt NP [address] [place] [address] PCP - General 09/01/19 documented as of this encounter
--- OUTSIDE RECORDS SUMMARY | 2024-10-22 14:59 | XMS_ITS | Encounter Summary ---
Author Organization [facility] Address [address] [place] [address] Care Team Providers Care Optical Lab Technician Name Role Phone Osbaldo Dewitt NP Primary Care Provider [phone] Reason for Visit * Reason Comments Other Encounter Details Date Type Department Care Team (Late st Contact Info) Description 06/16/[address] [facility] [place] [facility] [facility] [address] [address] Osbaldo Dewitt NP [address] [place] [address] Other Social History Tobacco Use [...] EST Office Visit [facility] Family Medicine [place] [address] Osbaldo Dewitt NP [address] [place], [place] [phone] documented as of this encounter Visit Diagnoses Not on filedocumented in this encounter Discontinued Medications Medication Sig Discontinue Reason Start Date End Da te doxycycline (PERIOSTAT) 20 mg tablet Take 2 Tabs by mouth daily for 90 days. 12/02/2019 06/16/2020 documented as of this encounter Care Teams Optical Lab Technician Relationship Specialty Start Date End Date Osbaldo Dewitt NP [address] [place], [place] [id number] PCP - General 09/01/19 documented as of this encounter
--- OUTSIDE RECORDS SUMMARY | 2024-10-22 14:59 | XMS_ITS | Encounter Summary ---
Author Organization [facility] Address [address] [place] [address] Care Team Providers Care Target Protection Specialist Name Role Phone Osbaldo Dewitt NP Primary Care Provider [phone] Reason for Visit * Reason Comments Back Pain lower right bback Encounter Details Date Type Department Care Team (Latest Contact Info) Description 02/20/2021 11:20 EDT Office Visit [facility] - [facility] Integrative Family Medicine [facility] [address] [place] [address] Osbaldo Dewitt NP [address] [place] [address] Essential hypertension (Primary Dx); Right [...] 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 [facility] Primary Care Subjective: Chief Complaint(s): Back Pain (lower right bback) HPI: The history is provided by the patient. No assistant speech language pathologist was used. Sandie is seen today for [...] space ergonomics. The 10-year ASCVD risk score ([place] ISAIAH Jr., et al., 2013) is: 4.6% [...] Info) Description 11/11/2024 15:30 EST Office Visit [facility] Integrative Family Medicine [address] [phone] Osbaldo Dewitt NP [address] [place], [place] [phone] documented as of this encounter Visit Diagnoses [...] 02/20/2021 documented in this encounter Care Teams Target Protection Specialist Relationship Specialty Start Date End Date Osbaldo Dewitt NP [address] [place] [address] PCP - General 09/01/19 documented as of this encounter
--- OUTSIDE RECORDS SUMMARY | 2024-10-22 14:59 | XMS_ITS | Encounter Summary ---
Author Organization [facility] Address [address] [place] [address] Care Team Providers Care Soybean Specialties Cook Name Role Phone Osbaldo Dewitt NP Primary Care Provider [phone] Reason for Visit * Reason Comments Other Encounter Details Date Type Department Care Team (Late st Contact Info) Description 10/15/2020 Refill [facility] Family Medicine [facility] [address] [place] [address] Osbaldo Dewitt NP [address] [place] [address] Other Social History Tobacco Use [...] [facility] Family Medicine [address] [address] Osbaldo Dewitt NP [address] [place] [address] documented as of this encounter Visit Diagnoses Diagnosis Gastroesophageal reflux disease- Primary Esophageal reflux documented in this encounter Discontinued Medications Medication Sig Discontinue Reason Start Date End Da te omeprazole (PRILOSEC) 20 mg capsuleIndications:Gastr oesophageal reflux disease, esophagitis presence not specified TAKE ONE CAPSULE BY MOUTH AT BEDTIME 09/30/2019 10/16/2020 documented as of this encounter Care Teams Soybean Specialties Cook Relationship Specialty Start Date End Date Osbaldo Dewitt NP [address] [place] [address] PCP - General 09/01/19 documented as of this encounter
--- OUTSIDE RECORDS SUMMARY | 2024-10-22 14:59 | XMS_ITS | Encounter Summary ---
Author Organization [facility] Address [address] [place] [address] Care Team Providers Care Boat Fueler Name Role Phone Osbaldo Dewitt NP Primary Care Provider [phone] Reason for Visit * Reason Comments Other Encounter Details Date Type Department Care Team (Late st Contact Info) Description 05/12/2020 Refill [facility] Medicine [address] [address] Osbaldo Dewitt FREELANCE PROGRAMMER/APP DEVELOPER [address] [place] [address] Other Social History Tobacco Use [...] Info) Description 11/11/2024 15:30 EST Office Visit [facility] Family [address] [phone] Osbaldo Dewitt NP [address] [place] [address] documented as of this encounter Visit Diagnoses Not on filedocumented in this encounter Discontinued Medications Medication Sig Discontinue Reason Start Date End Da te losartan-hydrochlorothia zide (HYZAAR) 100-25 mg per tablet TAKE ONE TABLET BY MOUTH EVERY DAY 02/03/2020 05/12/2020 documented as of this encounter Care Teams Boat Fueler Relationship Specialty Start Date End Date Osbaldo Dewitt NP [address] [place] [address] PCP - General 09/01/19 documented as of this encounter
--- OUTSIDE RECORDS SUMMARY | 2024-10-22 14:59 | XMS_ITS | Encounter Summary ---
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 08/22/2021 documented as of this encounter Care Teams Hand Folder Relationship Specialty Start Date End Date Osbaldo Dewitt NP [address] [place] [phone] PCP - General 09/01/19 documented as of this encounter
--- OUTSIDE RECORDS SUMMARY | 2024-10-22 14:59 | XMS_ITS | Encounter Summary ---
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 Not on tone e documented as of this encounter Plan of Treatment Upcoming Encounters Date Type Department Care Team (Late st Contact Info) Description 11/11/2024 15:30 EST Office Visit [facility] Integrative Family Medicine [facility] [address] [place] [address] Osbaldo Dewitt, THREADER OPERATOR [address] [place] [address] documented as of this encounter Procedures Procedure Name Priority Date/Time Associated Diagnosis Comments EXERCISE TOLERANCE TEST (ETT) 02/08/2021 14:00 EDT documented in this encounter Results * EXERCISE TOLERANCE TEST (ETT) (02/08/2021 14:00 EDT) Anatomical Region Laterality Modality Nuclear Stress 02/08/2021 14:0 0 EDT Narrative 02/11/2021 12:00 EDT *[facility]* *[facility]* [address] [place] [address] Stress Electrocardiography Demetris protocol Date of study: [...] peak heart rate and blood pressure was 16310ih Hg/min. ??The patient experienced no chest pain during stress. ?? Exercise capacity is above normal for age. Stress ECG: ABOVE AVERAGE FUNCTIONAL CAPACITY GOOD EXERCISE CORTNEY- 10 METS ( 9 MINUTES 9 SECONDS IN [facility]) MAX HR- 143 BPM NO CHEST PAIN NO ECTOPY HYPERTENSIVE NO ISCHEMIC ECG CHANGES. ??The stress ECG is negative. Study data: ??Anu Balbuena MD supervised and was readily available during the procedure. This study was interpreted by [facility]. ??Study status: ??Routine. ??Consent: ??The risks, [...] Note Anu Balbuena MD - 02/11/2021 *[facility]* *[facility]* [address] [place] [address] Stress Electrocardiography Demetris protocol Date of study: [...] peak heart rate and blood pressure was 88979fz Hg/min. The patient experienced no chest pain [...] procedure. This study was interpreted by [facility]. Study status: Routine. Consent: The risks, [...] on filedocumented in this encounter Care Teams Stylist Apprentice Relationship Specialty Start Date End Date Osbaldo Dewitt, SG [address] [place] [address] PCP - General 09/01/[address] [place] [address] Registered Dietitian Clinical Nutrition 10/21/23 documented as of this encounter
--- OUTSIDE RECORDS SUMMARY | 2024-10-22 14:59 | XMS_ITS | Encounter Summary ---
Author Organization [facility] Address [address] [place] [address] Care Team Providers Care Carpenter Wooden Tank Erecting Name Role Phone Osbaldo Dewitt NP Primary Care Provider [phone] Reason for Visit * Reason Comments Other BP and cardiac desiree rns, has not been taking BPs yet at home Encounter Details Date Type Department Care Team (Latest Contact Info) Description 01/25/2021 8:30 EDT Telemedicine [facility] Integrative Family Medicine [facility] [address] [place] [address] Osbaldo Dewitt NP [address] [place] [address] Chest pain, unspecified type (Primary [...] 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 [facility] Video Visit Today's visit was [...] HTN, HLD The 10-year ASCVD risk score ([place] ISAIAH Jr., et al., 2013) is: 4% [...] Description 11/11/2024 15:30 EST Office Visit [facility] Integrative Family Medicine [address] [phone] Osbaldo Dewitt NP [address] [place] [id number] documented as of this encounter Visit Diagnoses Diagnosis Chest pain, unspecified type- Primary Essential hypertension Unspecified essential hypertension Pure hypercholesterolemia documented in this encounter Historical Medications * This list may reflect changes made after this encounter. cetirizine (ZYRTEC) 10 mg tablet Take 1 Tablet by mouth daily. 11/11/2023 added in this encounter Care Teams Carpenter Wooden Tank Erecting Relationship Specialty Start Date End Date Osbaldo Dewitt NP [address] [place] [phone] PCP - General 09/01/19 documented as of this encounter
--- OUTSIDE RECORDS SUMMARY | 2024-10-22 14:59 | XMS_ITS | Encounter Summary ---
Author Organization [facility] Address [address] [place] [address] Care Team Providers Care Hospice Spiritual Care Coordinator Name Role Phone Osbaldo Dewitt NP Primary Care Provider [phone] Encounter Details Date Type Department Care Team (Late st Contact Info) Description 12/15/[address] 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 Not [...] [facility] Integrative Family Medicine [facility] [address] [place] [address] Osbaldo Dewitt, EXPERIMENTAL FLIGHT TEST MECHANIC [address] [place] [address] (work) documented as of this encounter Procedures Procedure Name Priority Date/Time Associated Diagnosis Comments LIPID PROFILE (INCLUDES CHOLESTEROL, TRIGLYCERIDES, HDL, LDL) Routine 12/15/2020 7:37 EST COMPREHENSIVE METABOLIC PANEL (CMP) Routine 12/15/2020 7:37 EST documented in this encounter Results * (ABNORMAL) LIPID PROFILE (INCLUDES CHOLESTEROL, TRIGLYCERIDES, HDL, LDL) (12/15/2020 7:37 EST) [facility] Triglyceride 83 <150 mg/dL 12/15/2020 9:04 [facility] Comment: Adult: Normal: ?<150 mg/dl ? Borderline High: 150-199 mg/dl ? High: ?200-499 mg/dl ? Very High: >kk=[id number] Cholesterol 225(H) <200 mg/dL 12/15/2020 9:04 [facility] Comment: Acceptable: ??<200 Borderline: ??200-239 High: ?> or = 240 Chol/HDL Ratio 3.5 0 - 4.5 12/15/2020 9:04 [facility] Comment: DESIRABLE RATIO IS LESS THAN 4.1 PATIENTS ARE CONSIDERED AT RISK: WOMEN RATIO >5 MEN RATIO >6 FASTING? - [facility] Yes 7:37 [facility] HDL 63(H) 40 - 60 mg/dL 12/15/2020 9:04 [facility] Comment: ?? Reference Range Low: ? < 40 ??mg/dL Normal: ??40-60 mg/dL High: ?>= 60 mg/dL LDL CHOLESTEROL - [facility] 145(H) 60 - 100 mg/dL 12/15/2020 9:04 [...] Final Result [facility] [address] [place] [address] * COMPREHENSIVE METABOLIC PANEL (CMP) (12/15/2020 7:37 EST) Albumin % 4.5 3.4 - 4.9 g/dL 12/15/2020 9:04 [facility] ALKALINE PHOSPHATASE - [facility] 63 38 - 126 U/L 12/15/2020 9:04 [facility] BILIRUBIN TOTAL 0.4 0.2 - 1.3 mg/dL 12/15/2020 9:04 [facility] BUN - [facility] 19 10 - 26 mg/dL 12/15/2020 9:04 [facility] CALCIUM - [facility] 9.7 8.5 - 10.5 mg/dL 12/15/2020 9:04 [facility] Chloride 103 96 - 110 mmol/L 12/15/2020 9:04 [facility] CO2 Total 29 22 - 32 mEq/L 12/15/2020 9:04 [facility] CREATININE 0.67 0.52 - 1.04 mg/dL 12/15/2020 9:04 [facility] eGFR >60 12/15/2020 9:04 [facility] Comment: Chronic renal impairment is defined as GFR <60 Multiply result by 1.210 for patients. eGFR calculated using the IDMS-traceable MDRD Study Equation. ??(effective 08/08/2014) Anion Gap 8 0 - 18 12/15/2020 9:04 [facility] GLUCOSE - [facility] 96 70 - 100 mg/dL 12/15/2020 9:04 EST [facility] Potassium 4.3 3.5 - 5.0 mEq/L 12/15/2020 9:04 [facility] Sodium 140 136 - 145 mEq/L 12/15/2020 9:04 EST [facility] TOTAL PROTEIN - [facility] 7.5 6.2 - 8.2 gm/dL 12/15/2020 9:04 [facility] SGOT/AST - [facility] 25 14 - 36 U/L 12/15/2020 9:04 [facility] SGPT/ALT - [facility] 15 0 - 35 U/L 9:04 [facility] 12/15/2020 7:37 EST 12/15/2020 7:37 EST Narrative [facility] - 12/15/2020 9:04 EST Does PT Have a Latex Allergy? NO us Osbaldo Dewitt NP CHEMISTRY & BLOOD GAS ORDERABL ES Final Result [facility] [address] [place] [address] documented in this encounter Visit Diagnoses Not on filedocumented in this encounter Care Teams Hospice Spiritual Care Coordinator Relationship Specialty Start Date End Date Osbaldo Dewitt, SG [address] [place] [id number] PCP - General 09/01/19 documented as of this encounter
--- OUTSIDE RECORDS SUMMARY | 2024-10-22 14:59 | XMS_ITS | Encounter Summary ---
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 Not [...] EST Office Visit [facility] Family [address] [phone] Osbaldo Dewitt NP [address] [place] [phone] documented as of this encounter Visit Diagnoses Diagnosis Rosacea- Primary documented in this encounter Discontinued Medications Medication Sig Discontinue Reason Start Date End Da te doxycycline (PERIOSTAT) 20 mg tablet TAKE TWO TABLETS BY MOUTH EVERY DAY 06/16/2020 12/13/2020 documented as of this encounter Care Teams Sort Worker Relationship Specialty Start Date End Date Osbaldo Dewitt NP [address] [place] [phone] PCP - General 09/01/19 documented as of this encounter
--- OUTSIDE RECORDS SUMMARY | 2024-10-22 14:59 | XMS_ITS | Encounter Summary ---
Author Organization [facility] Address [address] [place] [address] Care Team Providers Care Band Master Name Role Phone Osbaldo Dewitt NP Primary Care Provider Reason for Visit * Reason Onset Date Comments Medications Refill 11/02/2019 Encounter Details Date Type Department Care Team (Late st Contact Info) Description 11/02/2019 Telephone [facility] [place] [address] [place] [address] Osbaldo Dewitt NP [address] [place] [address] Medications Refill Social History Tobacco [...] WRIGHT, RN * Telephone Encounter - Kassi Stenier - 11/02/2019 1017 EST Pharmacy called - re: Rx change. Losartin hydrochlorothiazide 100/25 - Need Rx for 100 1x/day. And HCTZ 25mg 1x/day Need Rx to separate these out . documented in this encounter Plan of Treatment Upcoming Encounters Date Type Department Care Team (Late st Contact Info) Description 11/11/2024 15:30 EST Office Visit [facility] Integrative Family Medicine [address] [phone] Osbaldo Dewitt, SG [address] [place], [place] [phone] documented as of this encounter Visit Diagnoses [...] 11/02/2019 added in this encounter Care Teams Band Master Relationship Specialty Start Date End Date Osbaldo Dewitt NP [address] [place] [address] PCP - General 09/01/19 documented as of this encounter
--- OUTSIDE RECORDS SUMMARY | 2024-10-22 14:59 | XMS_ITS | Encounter Summary ---
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 [...] Description 11/11/2024 15:30 EST Office Visit [facility] Integrative Family Medicine [facility] [address] [place], [place] [phone] Osbaldo Dewitt NP [address] [place] [address] documented as of this encounter Visit Diagnoses Diagnosis Anxiety Anxiety state, unspecified Depression, unspecified depression type documented in this encounter Discontinued Medications Medication Sig Discontinue Reason Start Date End Da te venlafaxine (EFFEXOR-XR) 37.5 mg XR capsuleIndications:Anxie ty,Depression, unspecified depression type TAKE ONE CAPSULE BY MOUTH EVERY DAY 01/15/2021 01/24/2022 documented as of this encounter Care Teams Canteen Operator Relationship Specialty Start Date End Date Osbaldo Dewitt NP [address] [place] [address] PCP - General 09/01/19 documented as of this encounter
--- OUTSIDE RECORDS SUMMARY | 2024-10-22 14:59 | XMS_ITS | Encounter Summary ---
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 [...] Info) Description 11/11/2024 15:30 EST Office Visit [address] [phone] Osbaldo Dewitt NP [address] [place], [place] [phone] documented as of this encounter Visit Diagnoses Diagnosis Rosacea- Primary documented in this encounter Discontinued Medications Medication Sig Discontinue Reason Start Date End Da te doxycycline (PERIOSTAT) 20 mg tabletIndications:Rosace a TAKE TWO TABLETS BY MOUTH EVERY DAY 12/14/2020 12/24/2021 documented as of this encounter Care Teams Lead Generation Marketing Manager Relationship Specialty Start Date End Date Osbaldo Dewitt NP [address] [place] [address] PCP - General 09/01/19 documented as of this encounter
--- OUTSIDE RECORDS SUMMARY | 2024-10-22 14:59 | XMS_ITS | Encounter Summary ---
Author Organization [facility] Address [address] [place] [address] Care Team Providers Care Statue Maker Name Role Phone Osbaldo Dewitt NP Primary Care Provider [phone] Reason for Visit * Reason Comments Annual Exam Encounter Details Date Type Department Care Team (Late st Contact Info) Description 12/05/2020 17:00 EST Office Visit [facility] [place] [address] [place] [address] Osbaldo Dewitt NP [address] [place] [address] Encounter for annual physical exam [...] 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 [facility] Primary Care Preventive Service [...] pt prefers every 5 years. Managed on [id number] QD. Rare breakthrough sxs. ?? 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 Missed a dose last week, felt heart racing and anxiety that day. DIET & EXERCISE Diet: Logging calories through [employer] Exercise: no purposeful Behavioral Health Screen PHQ-2 [...] Date ??? GASTRIC FUNDOPLICATION 2009 [facility]fundoplication at [facility] Family History Problem Relation Age [...] Description 11/11/2024 15:30 EST Office Visit [facility] Family [address] [address] Osbaldo Dewitt SENIOR C DEVELOPER [address] [place] [address] documented as of this encounter Visit [...] documented as of this encounter Care Teams Statue Maker Relationship Specialty Start Date End Date Osbaldo Dewitt NP [address] [place] [address] PCP - General 09/01/19 documented as of this encounter
--- OUTSIDE RECORDS SUMMARY | 2024-10-22 14:59 | XMS_ITS | Encounter Summary ---
Author Organization [facility] Address [address] [place] [address] Care Team Providers Care Electrocardiograph Technician Name Role Phone Osbaldo Dewitt NP Primary Care Provider [phone] Reason for Visit * Reason Comments Other Encounter Details Date Type Department Care Team (Late st Contact Info) Description 01/14/2021 Refill 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 Not [...] Info) Description 11/11/2024 15:30 EST Office Visit [facility] [employer] [address] [place], [place] [phone] Osbaldo Dewitt NP [address] [place] [address] documented as of this encounter Visit Diagnoses Diagnosis Anxiety- Primary Anxiety state, unspecified Depression, unspecified depression type documented in this encounter Discontinued Medications Medication Sig Discontinue Reason Start Date End Da te venlafaxine (EFFEXOR-XR) 37.5 mg XR capsule TAKE ONE CAPSULE BY MOUTH EVERY DAY 01/03/2020 01/15/2021 documented as of this encounter Care Teams Electrocardiograph Technician Relationship Specialty Start Date End Date Osbaldo Dewitt NP [address] [place] [phone] PCP - General 09/01/19 documented as of this encounter
--- OUTSIDE RECORDS SUMMARY | 2024-10-22 14:59 | XMS_ITS | Encounter Summary ---
Author Organization [facility] Address [address] [place] [address] Care Team Providers Care Fisher Trawl Net Name Role Phone Osbaldo Dewitt NP Primary Care Provider [phone] Reason for Visit * Reason Comments Other Encounter Details Date Type Department Care Team (Late st Contact Info) Description 01/03/2020 Refill [facility] Integrative Family Medicine [address] [address] Osbalod Dewitt NP [address] [place] [address] Other Social History Tobacco Use [...] 15:30 EST Office Visit [facility] Integrative Family Medicine [address] [phone] Osbaldo Dewitt NP [address] [place] [phone] documented as of this encounter Visit Diagnoses Not on filedocumented in this encounter Discontinued Medications Medication Sig Discontinue Reason Start Date End Da te venlafaxine (EFFEXOR XR) 37.5 mg XR capsule Take 1 Cap by mouth daily. 11/26/2016 01/03/2020 documented as of this encounter Care Teams Fisher Trawl Net Relationship Specialty Start Date End Date Osbaldo Dewitt NP [address] [place] [phone] PCP - General 09/01/19 documented as of this encounter
--- OUTSIDE RECORDS SUMMARY | 2024-10-22 14:59 | XMS_ITS | Encounter Summary ---
Author Organization [facility] Address [address] [place] [address] Care Team Providers Care Culinary Specialist Name Role Phone Osbaldo Dewitt NP Primary Care Provider [phone] Reason for Visit * Reason Onset Date Comments Medications Refill 11/15/2020 Encounter Details Date Type Department Care Team (Late st Contact Info) Description 11/15/2020 Refill [facility] Integrative Family Medicine [facility] [address] [place], [place] [phone] Grace Wright RN Medications Refill Social History [...] Office Visit [facility] Family Medicine [address] [phone] Osbaldo Dewitt NP [address] [place] [address] documented as of this encounter Visit Diagnoses Diagnosis 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 once a week prn Reorder 06/04/2016 11/15/2020 documented as of this encounter Care Teams Culinary Specialist Relationship Specialty Start Date End Date Osbaldo Dewitt NP [address] [place] [address] PCP - General 09/01/19 documented as of this encounter
--- OUTSIDE RECORDS SUMMARY | 2024-10-22 14:59 | XMS_ITS | Encounter Summary ---
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
--- OUTSIDE RECORDS SUMMARY | 2024-10-22 14:59 | XMS_ITS | Encounter Summary ---
Author Organization 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 [address] [place], [place] [address] Osbaldo Dewitt NP [address] [place] [address] documented as of this encounter Visit Diagnoses Diagnosis Gastroesophageal reflux disease- Primary Esophageal reflux documented in this encounter Discontinued Medications Medication Sig Discontinue Reason Start Date End Da te omeprazole (PRILOSEC) 20 mg capsuleIndications:Gastr oesophageal reflux disease TAKE ONE CAPSULE BY MOUTH AT BEDTIME 10/16/2020 10/15/2021 documented as of this encounter Care Teams Director Of Strategic Marketing Relationship Specialty Start Date End Date Osbaldo Dewitt NP [address] [place] [address] PCP - General 09/01/19 documented as of this encounter
--- OUTSIDE RECORDS SUMMARY | 2024-10-22 14:59 | XMS_ITS | Encounter Summary ---
Author Organization [facility] Address [address] [place] [address] Care Team Providers Care Order Entry Name Role Phone Osbaldo Dewitt NP Primary Care Provider [phone] Reason for Visit * Reason Comments Hypertension Hyperlipidemia Encounter Details Date Type Department Care Team (Late st Contact Info) Description 11/09/2019 10:40 EST Office Visit [facility] [address] [place] [address] Osbaldo Dewitt NP [address] [place] [address] Hypertension, unspecified type (Primary Dx); [...] this encounter Progress Notes * Osbaldo Dewitt, STICKER ON - 11/09/2019 1040 EST [facility] Primary Care Subjective: Chief Complaint(s): Hypertension and Hyperlipidemia HPI: The history is provided by the patient. No educational sign language interpreter was used. Hypertension Managed with hydrochlorothiazide/losarten 25 [...] pt prefers every 5 years. Managed on [id number] QD. Rare breakthrough sxs. Psychiatry Hx of [...] Office Visit [facility] [place] [address] Osbaldo Dewitt NP [address] [place] [address] documented as of this encounter Visit Diagnoses [...] daily. added in this encounter Care Teams Order Entry Relationship Specialty Start Date End Date Osbaldo Dewitt NP [address] [place], [place] [phone] PCP - General 09/01/19 documented as of this encounter
--- OUTSIDE RECORDS SUMMARY | 2024-10-22 14:59 | XMS_ITS | Encounter Summary ---
Author Organization [facility] Address [address] [place] [address] Care Team Providers Care Recovery Assistant Name Role Phone Osbaldo Dewitt HIGH SCHOOL COORDINATOR Primary Care Provider [phone] Reason for Visit * Reason Comments Hypertension Hyperlipidemia Encounter Details Date Type Department Care Team (Latest Contact Info) Description 08/13/2021 8:40 EST Office Visit [facility] Integr[facility] Family Medicine [facility] [address] [place] [address] Osbaldo Dewitt NP [address] [place] [address] Primary hypertension (Primary Dx); Need [...] 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 [facility] Primary Care Subjective: Chief Complaint(s): Hypertension and Hyperlipidemia HPI: The history is provided by the patient. No manager post was used. Hypertension Managed with??hydrochlorothiazide/losarten 25 mg/100 [...] Info) Description 11/11/2024 15:30 [place] [address] Osbaldo Dewitt NP [address] [place], [place] [phone] documented as of this encounter Visit Diagnoses [...] 08/13/2021 documented in this encounter Care Teams Recovery Assistant Relationship Specialty Start Date End Date Osbaldo Dewitt NP [address] [place], [place] [phone] PCP - General 09/01/19 documented as of this encounter
--- OUTSIDE RECORDS SUMMARY | 2024-10-22 14:59 | XMS_ITS | Encounter Summary ---
Author Organization [facility] Address [address] [place] [address] Care Team Providers Care Poured Concrete Wall Technician Name Role Phone Osbaldo Dewitt NP Primary Care Provider [phone] Unavailable [phone] Reason for Visit * Reason Comments Other Encounter Details Date Type Department Care Team (Late st Contact Info) Description 12/02/2019 Refill [facility] Integrative Family Medicine [facility] [address] [place] [address] Osbaldo Dewitt NP [address] [place] [address] Other Social History Tobacco Use [...] Upcoming Encounters Date Type Department Care Team ([facility] st Contact Info) Description 11/11/2024 15:30 EST Office Visit [facility] Family [address] [phone] Osbaldo Dewitt NP [address] [place] [address] documented as of this encounter Visit Diagnoses Not on filedocumented in this encounter Discontinued Medications Medication Sig Discontinue Reason Start Date End Da te doxycycline (PERIOSTAT) 20 mg tablet Take 2 Tabs by mouth daily. 12/02/2019 documented as of this encounter Care Teams Poured Concrete Wall Technician Relationship Specialty Start Date End Date Osbaldo Dewitt NP [address] [place] [phone] PCP - General 09/01/[address] [place] [phone] Registered Dietitian Clinical Nutrition 10/21/23 documented as of this encounter
--- OUTSIDE RECORDS SUMMARY | 2024-10-22 14:59 | XMS_ITS | Encounter Summary ---
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 [...] Visit [facility] Integrative Family Medicine [address] [phone] Osbaldo Dewitt NP [address] [place] [phone] documented as of this encounter Visit Diagnoses Diagnosis Essential hypertension- Primary Unspecified essential hypertension documented in this encounter Discontinued Medications Medication Sig Discontinue Reason Start Date End Da te losartan-hydrochlorothia zide (HYZAAR) 100-25 mg per tablet TAKE ONE TABLET BY MOUTH EVERY DAY 05/12/2020 12/13/2020 documented as of this encounter Care Teams Glaze Grinder Relationship Specialty Start Date End Date Osbaldo Dewitt NP [address] [place] [phone] PCP - General 09/01/19 documented as of this encounter
--- OUTSIDE RECORDS SUMMARY | 2024-10-22 14:59 | XMS_ITS | Encounter Summary ---
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
--- OUTSIDE RECORDS SUMMARY | 2024-10-22 15:00 | XMS_ITS | Encounter Summary ---
Author Organization [facility] Address [facility] [place] [address] Care Team Providers Care Copyman Name Role Phone Osbaldo Dewitt APRN Primary Care Provider [phone] Encounter Details Date Type Department Care Team [...] on filedocumented in this encounter Care Teams Copyman Relationship Specialty Start Date End Date Osbaldo Dewitt APRN [address] [place] [phone] PCP - General Family Medicine 12/31/22 documented as of this encounter
--- OUTSIDE RECORDS SUMMARY | 2024-10-22 15:00 | XMS_ITS | Encounter Summary ---
Author Organization [facility] Address [address] [place] [address] Care Team Providers Care Clerical Assistant Name Role Phone Unknown, Provider Primary Care Provider Unava ilable Encounter Details Date Type Department Care Team (Late st Contact Info) Description 11/20/2017 Historical Results Only [facility] Radiology Results [address] [place] [address] Ada Theodore PA-C [address] [facility] [address] [place], [place] [address] Social History Tobacco Use Types Packs/Day Years [...] Info) Description 11/11/2024 15:30 EST Office Visit [facility] [address] [place] [address] Osbaldo Dewitt NP [address] [place] [address] documented as of this encounter Procedures Procedure [...] CC: ? Transcribed Date/Time: 11/20/2017 (1409) ? Crew Team Member: ? Printed Date/Time: 03/25/2019 (0447) ? PAGE 1 ? Signed Report ? [...] Arnold MD CC: Transcribed Date/Time: 11/20/2017 (1409) Crew Team Member: Printed Date/Time: 03/25/2019 (2119) PAGE 1 Signed Report us Ada Theodore PA-C [facility] ORDERABLES Final Result documented in this encounter Visit Diagnoses Not on filedocumented in this encounter Care Teams Clerical Assistant Relationship Specialty Start Date End Date Unknown, Provider, PCP - General 07/18/14 08/31/19 documented as of this encounter
--- OUTSIDE RECORDS SUMMARY | 2024-10-22 15:00 | XMS_ITS | Encounter Summary ---
Author Organization [facility] Address [address] [place] [address] Care Team Providers Care Malt House Operator Name Role Phone Unknown, Provider Primary Care Provider Unava ilable Encounter Details Date Type Department Care Team (Late st Contact Info) Description 05/13/2017 Historical Results Only [facility] Radiology Results [address] [place] [address] Mellisa Sweeney NP [address] [place] [address] [place] [phone] Social History Tobacco Use Types Packs/Day Years [...] [facility] [address] [place] [address] Osbaldo Dewitt NP [address] [place] [address] documented as of this encounter Procedures Procedure [...] CC: ? Transcribed Date/Time: 05/13/2017 (0913) ? Farm Machinery Engine Mechanic: ? Printed Date/Time: 03/23/2019 (1835) ? PAGE [...] Douglas MD CC: Transcribed Date/Time: 05/13/2017 (0913) Farm Machinery Engine Mechanic: Printed Date/Time: 03/23/2019 (3241) PAGE 1 Signed Report Mellisa Sweeney NP [facility] ORDERA BLES Final Result documented in this encounter Visit Diagnoses Not on filedocumented in this encounter Care Teams Malt House Operator Relationship Specialty Start Date End Date Unknown, Provider, PCP - General 07/18/14 08/31/19 documented as of this encounter
--- OUTSIDE RECORDS SUMMARY | 2024-10-22 15:00 | XMS_ITS | Clinical Summary ---
Author Organization [facility] Address [facility] [place] [address] Care Team Providers Care Corporate Development Manager Name Role Phone Esdras Osbaldo Piña APRN Primary Care Provider [phone] Allergies Active Allergy Reactions Criticality Noted Date [...] 02/03/2023 Active fluticasone propionate (Flonase) 50 mcg/actuation [place], Suspension 2 sprays by Nasal route Once [...] g vaginally. Twice weekly prn 12/07/2020 Active cowyiwe-cgpt-khhfs-oreg -capryl 100 mg-150 mg- 50 mg-150 mg [...] series) 06/06/2024 Medical Devices Implanted Type Area Slip Filler Device Identifier Shelf Expiration Date Model / Serial / Lot Cement Bone Medium Viscosity 20gm Half Dose Pmma Cmw ([id number]) - [id number] Implanted:Qty : 1 on 03/11/2023 by Christine Colby MD at [facility] IMPLANTS Left: Shoulder [employer] [facility] [place] [id number] 08/05/2025 3322-020 / / [id number] Component Glenoid Sz 4 4 Peg Modular [place] ([id number]) (Autoreq) - [id number] Implanted:Qty : 1 on 03/11/2023 by Christine Colby MD at [facility] IMPLANTS Left: Shoulder CHANDLER [employer] - CHANDLER BIO [id number] 01/13/2028 [id number] / / [id number] Component Glenoid Modular Post [place] Trabecular Metal ([id number]) (Autoreq) - [id number] Implanted:Qty : 1 on 03/11/2023 by Christine Colby MD at [facility] IMPLANTS Left: Shoulder CHAND[employer]ER [employer]ET - CHAND[employer]ER BIO [id number] 12/07/2032 [id number] / / [id number] Humeral Anchr Shldr 21r10zz Prsft Stem Free Med Ti Sidus (0604894) (Autoreq) - [id number] Implanted:Qty : 1 on 03/11/2023 by Christine Colby MD at [facility] IMPLANTS Left: Shoulder CHAND[employer]ER [employer]ET - CHANDLER BIO [id number] 11/30/2031 01.35145.12 0 / / [id number] Head Humeral Shoulder 85v39ke Stem Free Cocr Sidus (1921666) (Autoreq) - [id number] Implanted:Qty : 1 on 03/11/2023 by Christine Colby MD at [facility] IMPLANTS Left: Shoulder CHAND[employer]ER [employer] - CHANDLER BIO [id number] 07/25/2031 01.23112.42 0 / / [id number] Humeral Anchr Shldr 80b63zz Prsft Stem Free Med Ti Sidus (7088500) (Autoreq) - [id number] Implanted:Qty : 1 on 12/09/2023 by Christine Colby MD at [facility] IMPLANTS Right: Shoulder CHAND[employer]ER [employer]ET - CHANDLER BIO [id number] 11/21/2032 01.28612.12 0 / / [id number] Head Humeral Shoulder 64n51zd Stem Free Sidus (9304536) (Autoreq) - [id number] Implanted:Qty : 1 on 12/09/2023 by Christine Colby MD at [facility] IMPLANTS Right: Shoulder CHANDLER [employer] - CHANDLER BIO [id number] 03/14/2033 [id number] / / [id number] Cement Bone Medium Viscosity 20gm Half Dose Pmma Cmw (1532514) - [id number] Implanted:Qty : 1 on 12/09/2023 by Christine Colby MD at [facility] IMPLANTS Right: Shoulder [employer] [facility] [id number] 04/04/2026 3322-020 / / [id number] Component Glenoid Sz 4 4 Peg Modular [place] (6577834) (Autoreq) - [id number] Implanted:Qty : 1 on 12/09/2023 by Christine Colby MD at [facility] IMPLANTS Right: Shoulder CHANDLER [employer]OMET - CHANDLER BIO [id number] 11/06/2028 [id number] / / [id number] Component Glenoid Modular Post [place] Trabecular Metal (2366041) (Autoreq) - [id number] Implanted:Qty : 1 on 12/09/2023 by Christine Colby MD at [facility] IMPLANTS Right: Shoulder CHAND[employer]ER [employer] - CH[employer]ER BIO [id number] 09/22/2033 [id number] / / [id number] Explanted Type Area Slip Filler Device Identifier Shelf Expiration Date Model / Serial / Lot Pin Fix [id number] Threaded Sgl End Ss Kay ([id number]) (Autoreq) - [id number] Explanted:Qt y: 1 on 03/11/2023 by Christine Colby MD at [facility] IMPLANTS Left: Shoulder CH[employer]ET - CHAND[employer]ER BIO [id number] 01/01/2033 [id number] / / [id number] Advance Directives * Full Code (Latest Code Status on File) Date Activated Date Inactivated Comments 03/11/2023 9:21 AM 12/09/2023 5:43 AM Question Answer Comments Does patient have capacity to make decision: Yes Care Teams Corporate Development Manager Relationship Specialty Start Date End Date Osbaldo Dewitt APRN [address] [place] [phone] PCP - General Family Medicine 12/31/22
--- OUTSIDE RECORDS SUMMARY | 2024-10-22 15:00 | XMS_ITS | Encounter Summary ---
Author Organization [facility] Address [address] [place] [address] Care Team Providers Care Tour Driver Name Role Phone Unknown, Provider Primary Care Provider Unava ilable Encounter Details Date Type Department Care Team (Late st Contact Info) Description 11/13/2018 Historical Results Only [facility] Radiology Results [address] [place] [address] Osbaldo Dewitt NP [address] [place], [place] [phone] Social History Tobacco Use Types Packs/Day Years [...] Office Visit [facility] Integrative Family [facility] [address] [place], [place] [address] Osbaldo Dewitt NP [address] [place], [place] [phone] documented as of this encounter Visit Diagnoses Not on filedocumented in this encounter Care Teams Tour Driver Relationship Specialty Start Date End Date Unknown, Provider, PCP - General 07/18/14 08/31/19 documented as of this encounter
--- OUTSIDE RECORDS SUMMARY | 2024-10-22 15:00 | XMS_ITS | Encounter Summary ---
Author Organization [facility] Address [address] [place] [address] Care Team Providers Care Market Garden Worker Name Role Phone Unknown, Provider Primary Care Provider Unava ilable Encounter Details Date Type Department Care Team (Late st Contact Info) Description 07/02/2017 Historical Results Only [facility] - Main [place] [address] [place] [address] Osbaldo Dewitt NP [address] [place], [place] [phone] Social History Tobacco Use Types Packs/Day Years [...] [facility] Integrative Family Medicine [address] [address] Osbaldo Dewitt NP [address] [place] [address] documented as of this encounter Procedures Procedure Name Priority Date/Time Associated Diagnosis Comments LIPID PROFILE (INCLUDES CHOLESTEROL, TRIGLYCERIDES, HDL, LDL) Routine 07/02/2017 8:38 EDT documented in this encounter Results * (ABNORMAL) LIPID PROFILE (INCLUDES CHOLESTEROL, TRIGLYCERIDES, HDL, LDL) (07/02/2017 8:38 EDT) Triglyceride 121 35 - 150 mg/dL 07/02/2017 9:50 EDT [facility] Cholesterol 232(H) 120 - 200 mg/dL 07/02/2017 9:50 EDT [facility] Chol/HDL Ratio 3.2 0 - 4.5 07/02/2017 9:50 EDT [facility] Comment: DESIRABLE RATIO IS LESS THAN 4.1 PATIENTS ARE CONSIDERED AT RISK: WOMEN RATIO >5 MEN RATIO >6 FASTING? - [facility] Yes 7 8:39 EDT [facility] HDL 71(H) 40 - 60 mg/dL 07/02/2017 9:50 EDT [facility] LDL CHOLESTEROL - [facility] 137(H) 60 - 100 mg/dL 07/02/2017 9:50 EDT [facility] Non HDL Cholesterol 161 mg/dl 07/02/2017 9:50 EDT [facility] Comment: Desirable: ?Less than 130 Borderline High: ??130-159 High: ? 160-189 Very High: ?Greater than or equal to 190 07/02/2017 8:38 EDT 07/02/2017 8:38 EDT Narrative [facility] - 07/02/2017 9:50 EDT Does PT Have a Latex Allergy? NO us Osbaldo Dewitt NP CHEMISTRY & BLOOD GAS ORDERABL ES Final Result [facility] documented in this encounter Visit Diagnoses Not on filedocumented in this encounter Care Teams Market Garden Worker Relationship Specialty Start Date End Date Unknown, Provider, PCP - General 07/18/14 08/31/19 documented as of this encounter
--- OUTSIDE RECORDS SUMMARY | 2024-10-22 15:00 | XMS_ITS | Encounter Summary ---
[place] [address] Care Team Providers Care Bar Steward Name Role Phone Osbaldo Dewitt APRN Primary Care Provider Encounter Details Date Type Department Care Team (Late st Contact Info) Description 12/09/2023 Telephone [place] [address] Eric Damon MD Social History [...] on filedocumented in this encounter Care Teams Bar Steward Relationship Specialty Start Date End Date Osbaldo Dewitt APRN [address] [place] [phone] PCP - General Family Medicine 12/31/22 documented as of this encounter
--- OUTSIDE RECORDS SUMMARY | 2024-10-22 15:00 | XMS_ITS | Encounter Summary ---
Author Organization [facility] Address [facility] [place] [address] Care Team Providers Care Liquor Blender Name Role Phone Osbaldo Dewitt CAMILO Primary Care Provider [phone] Reason for Visit * Reason Comments Follow-up XR RIGHT TSA D OS:12-09-23 Encounter Details Date Type Department Care Team (Late st Contact Info) Description 01/27/2024 8:30 AM EDT Office [place] [phone] Joan Sow PA [facility] [place] [address] s/p right anatomic stemless TSA, 12/09/23 (Dr Colby) (Primary Dx); s/p left anatomic stemless TSA, 03/11/23 (Dr Colby) Social History Tobacco Use Types Packs/Day Years Used Date Smoking Tobacco: Former Cigarettes Smokeless Tobacco: Never Alcohol Use Standard Drinks/Week Comments Yes 14 (1 standard drink = 0.6 oz pu re alcohol) [facility] Inpatient Questions Answer Date Recorded Does Anyone [...] Name: Sandie Manriquez AGE: 63 y.o. MR#: [id number] Date of Visit: 01/27/2024 Procedure: right anatomic [...] without acute postoperative complications. Survey Responses: 01/26/2024 [facility] Surgical Followup Visit PROMIS-10 [...] since surgery Yes Where was ER located? [place], [place] Date of ER visit 12/13/2023 Reason for ER visit A-fib Admitted to hospital since recent ortho surgery No Additional surgery on same body part No Satisfaction with Treatment Satisfied Choose Same Treatment Again Definitely yes 01/26/2024 Orthopeadics [facility] Response ASES VAS-RIGHT [...] AM The above documentation was completed using [employer] voice recognition software. documented in this encounter Plan of Treatment Not on file documented as of this encounter Visit Diagnoses Diagnosis s/p right anatomic stemless TSA, 12/09/23 (Dr Colby)- Primary s/p left anatomic stemless TSA, 03/11/23 (Dr Colby) documented in this encounter Care Teams Liquor Blender Relationship Specialty Start Date End Date Osbaldo Dewitt APRN [address] [place] [phone] PCP - General Family Medicine 12/31/22 documented as of this encounter
--- OUTSIDE RECORDS SUMMARY | 2024-10-22 15:00 | XMS_ITS | Encounter Summary ---
Author Organization [facility] Address [facility] [place] [address] Care Team Providers Care Insurance Sales Agent Name Role Phone Osbaldo Dewitt APRN Primary [...] on filedocumented in this encounter Care Teams Insurance Sales Agent Relationship Specialty Start Date End Date Osbaldo Dewitt APRN [address] [place] [phone] PCP - General Family Medicine 12/31/22 documented as of this encounter
--- OUTSIDE RECORDS SUMMARY | 2024-10-22 15:00 | XMS_ITS | Encounter Summary ---
Author Organization [facility] Address [facility] [place] [address] Care Team Providers Care Antique Furniture Repairer Name Role Phone EsdrasOsbaldo weston Yaron [place] Primary Care Provider [phone] Reason for Visit * Reason Onset Date Comments Appointment 12/26/2023 Post Procedure Call 12/26/2023 Encounter Details Date Type Department Care Team (Late st Contact Info) Description 12/26/2023 Telephone [place] [phone] Christine Colby MD [facility] [place] [address] Appointment; Post Procedure Call Social History Tobacco Use Types Packs/Day Years Used Date Smoking Tobacco: Former Cigarettes Smokeless Tobacco: Never Alcohol Use Standard Drinks/Week Comments Yes 14 (1 standard drink = 0.6 oz pu re alcohol) [facility] Inpatient Questions Answer Date Recorded Does [...] MA - 12/26/2023 10:46 AM EDT Patient's Tapvalue message forwarded to Joan for appt type recommendation and incision review. * Telephone Encounter - Jean Carlos Ibarra - 12/26/2023 10:12 AM EDT Who is calling? Cheryl Best call back number: [phone] Best time to call back between 8:00 am & 5:00 pm: Anytime Can we leave a message? yes When was your procedure? 12/09/23 Who was your surgeon? Dr. Colby What procedure did you have done? 12/09/2023 0730 TOTAL SHOULDER ARTHROPLASTY (WRVU 22.13) - Right MODIFIER SIDUS SHOULDER CHANDLER BIOMET TENODESIS,BICEPS TENDON (PROXIMAL) (WRVU 10.17) - Right Christine Colby (Primary) Bird Corona Nicole T [facility] MAIN OR Discharged What is the [...] Pat is also going to send a Tapvalue message with an attached picture of her [...] on filedocumented in this encounter Care Teams Antique Furniture Repairer Relationship Specialty Start Date End Date Osbaldo Dewitt APRN [address] [place] [phone] PCP - General Family Medicine 12/31/22 documented as of this encounter
--- OUTSIDE RECORDS SUMMARY | 2024-10-22 15:00 | XMS_ITS | Encounter Summary ---
Author Organization [facility] Address [address] [place] [address] Care Team Providers Care Chummer Name Role Phone Unknown, Provider Primary Care Provider Unava ilable Encounter Details Date Type Department Care Team (Late st Contact Info) Description 10/01/2016 Historical Results Only [facility] - Main [place] [address] [place] [address] Bird Watkins MD Social History Tobacco Use [...] Office Visit [facility] Integrative Family Medicine [facility] [address] [place], [place] [phone] Osbaldo Dewitt, SG [address] [place] [address] documented as of this encounter Procedures Procedure Name Priority Date/Time Associated Diagnosis Comments SURGICAL PATHOLOGY Routine 10/01/2016 16 :19 EST documented in this encounter Results * SURGICAL PATHOLOGY (10/01/2016 16:19 EST) 10/01/2016 16:1 9 EST 10/01/2016 16:19 EST Narrative [facility] - 10/02/2016 11:55 EST ----- ------- Name: SANDIE DUVALL ? : 58 ?Age/Sex: 58/F ?Unit#: [id number] ? Loc: END ? Status: DEP CLI ?? Reg Date: 10/01/16 ? Pt.Phone Number: ? ----- ------- Specimen: [id number] ? STATUS: SOUT ?Spec Date:10/01/16 ? Physician Copies: ?Bird Watkins MD ?? Tissues: A ?? Endoscopy specimen (ESOPHAGUS) ? Osbaldo Dewitt ? CPT: 93519 ?? Units: ??1 ?FINAL DIAGNOSIS ? ESOPHAGUS, [...] confirmed the above diagnosis. Test Performed by [facility], [address] [place] [address] Carbon Lamp Cleaner: Ewa Glover MD PHD ----- ------- us Bird Watkins MD PATHOLOGY ORDERABLES Final Re sult [facility] documented in this encounter Visit Diagnoses Not on filedocumented in this encounter Care Teams Chummer Relationship Specialty Start Date End Date Unknown, Provider, PCP - General 07/18/14 08/31/19 documented as of this encounter
--- OUTSIDE RECORDS SUMMARY | 2024-10-22 15:00 | XMS_ITS | Encounter Summary ---
Author Organization [facility] [place] [address] Care Team Providers Care Surgery Center Administrator Name Role Phone Osbaldo Dewitt Yaron [place] Primary Care Provider [phone] Reason for Visit * Auth/Cert (Routine) Specialty Diagnoses / Procedures Referred By Chance t Referred To Contact Diagnoses shoulder arthritis Procedures PRO ARTHROPLASTY GLENOHUMERAL JOINT TOTAL SHOULDER PRO REPAIR BICEPS LONG TENDON TOTAL SHOULDER ARTHROPLASTY (WRVU 22.13) MODIFIER BEACH CHAIR SCHLEIN TENODESIS,BICEPS TENDON (PROXIMAL) (WRVU 10.17) Christine Colby MD [facility] [place] [address] [facility] Referral ID Status Reason Start Date Expiration Date Visits Re quested Visits Authorized [id number] 1 1 Encounter Details Date Type Department Care Team (Late st Contact Info) Description 12/09/2023 7:25 AM EST Anesthesia Event [place] [address] Yuan Oneal MD [facility] [place] [address] Kevin Lynn MD [facility] [place] [address] Anesthesia Record Procedure Summary Procedure Name Responsible [...] 12/09/23 075 by Mey Prince, RN PIV [id number]-izc-[id number] cath eter system; 18 gauge; metacarpal vein [...] Procedure Summary Date: 12/09/23 Room / Location: [facility] OR [facility] MAIN OR Anesthesia Start: 724 Anesthesia Stop: 934 Procedures: TOTAL SHOULDER ARTHROPLASTY (WRVU 22.13) (Right: Shoulder) MODIFIER SIDUS SHOULDER CHANDLER BIOMET TENODESIS,BICEPS TENDON (PROXIMAL) (WRVU 10.17) (Right: Shoulder) Diagnosis: (shoulder pain) Surgeons: Christine Colby MD Responsible Provider: Yuan Oneal MD Anesthesia Type: general ASA Status: 3 All Anesthesia Providers: Anesthesiologist: Yuan Oneal MD MAJOR DONOR COORDINATOR: Selene Hammer CRNA Vitals Value Taken Time BP 132/80 12/09/23 1030 Temp 36 ??C (96.8 ??F) 12/09/23 0934 Pulse 60 12/09/23 1042 Resp 16 12/09/23 1042 SpO2 91 % 12/09/23 1042 Pain Level 0 12/09/23 0934 Vitals shown include unfiled device data. Patient Location: PACU/[facility] Level of Consciousness: Awake and Alert Pain [...] 22.13) performed by Christine Colby MD at [facility] MAIN OR ??? PRO REPAIR BICEPS LONG TENDON Left 03/11/2023 TENODESIS,BICEPS TENDON (PROXIMAL) (WRVU 10.17) performed by Christine Colby MD at [facility] MAIN OR Social History Tobacco Use ??? [...] blood products. Plan discussed with attending and MAJOR DONOR COORDINATOR. Anesthesia Screening documented in this encounter Plan [...] Kevin Smith MD ?? Kevin Smith MD BOILER TENDERS SUPERVISOR [facility] documented in this encounter Visit Diagnoses [...] mg documented in this encounter Care Teams Surgery Center Administrator Relationship Specialty Start Date End Date Osbaldo Dewitt APRN [address] [place] [phone] PCP - General Family Medicine 12/31/22 documented as of this encounter
--- OUTSIDE RECORDS SUMMARY | 2024-10-22 15:00 | XMS_ITS | Encounter Summary ---
Author Organization [facility] Address [address] [place] [address] Care Team Providers Care Supervisor Fur Dressing Name Role Phone Unknown, Provider Primary Care Provider Unava ilable Encounter Details Date Type Department Care Team (Latest Contact Info) Description 10/25/2014 14:28 EST - 10/25/2014 14:29 EST Hospital Encounter [address] [address] Emelyn Fagan MD [address] [facility] [address] [place] [address] Discharge Disposition: Home or Self [...] Visit [facility] [address] [place], [place] [phone] Osbaldo Dewitt, SG [address] [place], [place] [phone] documented as of this encounter Visit Diagnoses Not on filedocumented in this encounter Care Teams Supervisor Fur Dressing Relationship Specialty Start Date End Date Unknown, Provider, PCP - General 07/18/14 08/31/19 documented as of this encounter
--- OUTSIDE RECORDS SUMMARY | 2024-10-22 15:00 | XMS_ITS | Encounter Summary ---
Author Organization [facility] Address [address] [place] [address] Care Team Providers Care Nurse Unit Manager Name Role Phone Unknown, Provider MD Primary Care Provider Unava ilable Encounter Details Date Type Department Care Team (Latest Contact Info) Description 11/13/2018 10:07 EST - 11/13/2018 23:59 EST Hospital Encounter [facility] [address] [place] [address] Unknown, Provider, Discharge Disposition: Home or Self [...] Info) Description 11/11/2024 15:30 EST Office Visit [address] [phone] Osbaldo Dewitt NP [address] [place], [place] [phone] documented as of this encounter Visit Diagnoses Not on filedocumented in this encounter Care Teams Nurse Unit Manager Relationship Specialty Start Date End Date Unknown, Provider, PCP - General 07/18/14 08/31/19 documented as of this encounter
--- OUTSIDE RECORDS SUMMARY | 2024-10-22 15:00 | XMS_ITS | Encounter Summary ---
[place] [address] Care Team Providers Care Dip Dyer Name Role Phone Esdras, Osbaldojerrica Piña APRN Primary Care Provider Encounter Details Date Type Department Care Team (Late st Contact Info) Description 12/26/2023 [place] [address] Eric Damon MD Social History [...] on filedocumented in this encounter Care Teams Dip Dyer Relationship Specialty Start Date End Date Osbaldo Dewitt APRN [address] [place] [phone] PCP - General Family Medicine 12/31/22 documented as of this encounter
--- OUTSIDE RECORDS SUMMARY | 2024-10-22 15:00 | XMS_ITS | Encounter Summary ---
Author Organization [facility] Address [address] [place] [address] Care Team Providers Care Compounder Helper Name Role Phone Unknown, Provider Primary Care Provider Unava ilable Encounter Details Date Type Department Care Team (Late st Contact Info) Description 11/16/2018 Historical Results Only [facility] Radiology Results [address] [place] [address] Osbaldo Dewitt NP [address] [place], [place] [phone] Social History Tobacco Use Types Packs/Day Years [...] Info) Description 11/11/2024 15:30 EST Office Visit [facility] Integrative Family [facility] [address] [place], [place] [address] Osbaldo Dewitt NP [address] [place], [place] [phone] documented as of this encounter Procedures Procedure [...] CC: ? Transcribed Date/Time: 11/16/2018 (1422) ? Cell Efficiency Supervisor: ? Printed Date/Time: 03/29/2019 (9128) ? PAGE 1 ? Signed Report ? [...] Arnold MD CC: Transcribed Date/Time: 11/16/2018 (142) Cell Efficiency Supervisor: Printed Date/Time: 03/29/2019 (3289) PAGE 1 Signed Report us Osbaldo Dewitt NP IMG MAMMOGRAPHY ORDERABLES Fin al Result documented in this encounter Visit Diagnoses Not on filedocumented in this encounter Care Teams Compounder Helper Relationship Specialty Start Date End Date Unknown, Provider, PCP - General 07/18/14 08/31/19 documented as of this encounter
--- OUTSIDE RECORDS SUMMARY | 2024-10-22 15:00 | XMS_ITS | Encounter Summary ---
Author Organization [facility] Address [address] [place] [address] Care Team Providers Care Global Marketing Manager Name Role Phone Unknown, Provider Primary Care Provider Unava ilable Encounter Details Date Type Department Care Team (Late st Contact Info) Description 10/23/2018 Historical Results Only [facility] Lab - Main [place] [address] [place] [address] Osbaldo Dewitt NP [address] [place], [place] [phone] Social History Tobacco Use Types Packs/Day Years [...] Description 11/11/2024 15:30 EST Office Visit [facility] Integrative Family Medicine [address] [address] Osbaldo Dewitt NP [address] [place] [address] documented as of this encounter Procedures Procedure Name Priority Date/Time Associated Diagnosis Comments MAGNESIUM Routine 10/23/2018 8:00 EST VITAMIN B12 Routine 10/23/2018 8:00 EST LIPID PROFILE (INCLUDES CHOLESTEROL, TRIGLYCERIDES, HDL, LDL) Routine 10/23/2018 8:00 EST BASIC METABOLIC PANEL (BMP) Routine 10/23/2018 8:00 EST documented in this encounter Results * (ABNORMAL) VITAMIN B12 (10/23/2018 8:00 EST) Pathologist [facility] VITAMIN B12 - [facility] >1,000(H) 239 - 931 pg/mL 10/23/2018 10:07 EST [facility] Comment: The results of this assay can be falsely elevated due to the consumption of Biotin. 10/23/2018 8:00 EST 10/23/2018 8:00 EST Narrative [facility] - 10/23/2018 10:07 EST Does PT Have a Latex Allergy? NO Osbaldo Dewitt RECEIVING INSPECTOR CHEMISTRY & BLOOD GAS ORDERABL ES Final Result Performing Organization Address [facility] Co de Phone Number [facility] * MAGNESIUM (10/23/2018 8:00 EST) [facility] Magnesium 1.80 1.7 - 2.8 mg/dL 10/23/2018 9:24 EST [facility] 10/23/2018 8:00 EST 10/23/2018 8:00 EST [facility] - 10/23/2018 9:24 EST Does PT Have a Latex Allergy? NO us Osbaldo Dewitt RECEIVING INSPECTOR CHEMISTRY & BLOOD GAS ORDERABL ES Final Result Performing Organization Address [facility]/ZIP Co de Phone Number [facility] * (ABNORMAL) LIPID PROFILE (INCLUDES CHOLESTEROL, TRIGLYCERIDES, HDL, LDL) (10/23/2018 8:00 EST) Triglyceride 79 <150 mg/dL 10/23/2018 9:24 [facility] Comment: Adult: Normal: ?<150 mg/dl ? Borderline High: 150-199 mg/dl ? High: ?200-499 mg/dl ? Very High: >gv=818 Cholesterol 205(H) <200 mg/dL 10/23/2018 9:24 [facility] Comment: Acceptable: ??<200 Borderline: ??200-239 High: ?> or = 240 Chol/HDL Ratio 3.4 0 - 4.5 10/23/2018 9:24 [facility] Comment: DESIRABLE RATIO IS LESS THAN 4.1 PATIENTS ARE CONSIDERED AT RISK: WOMEN RATIO >5 MEN RATIO >6 FASTING? - [facility] Yes 8:00 [facility] HDL 60 40 - 60 mg/dL 10/23/2018 9:24 [facility] Comment: ?? Reference Range Low: ? < 40 ??mg/dL Normal: ??40-60 mg/dL High: ?>= 60 mg/dL LDL CHOLESTEROL - [facility] 129(H) 60 - 100 mg/dL 10/23/2018 9:24 [facility] Non HDL Cholesterol 145 mg/dl 10/23/2018 9:24 [facility] Comment: Desirable: ?Less than 130 Borderline High: ??130-159 High: ? 160-189 Very High: ?Greater than or equal to 190 10/23/2018 8:00 EST 10/23/2018 8:00 EST [facility] - 10/23/2018 9:24 EST Does PT Have a Latex Allergy? NO us Osbaldo Dewitt NP CHEMISTRY & BLOOD GAS ORDERABL ES Final Result [facility] * BASIC METABOLIC PANEL (BMP) (10/23/2018 8:00 EST) BUN - [facility] 11 10 - 26 mg/dL 10/23/2018 9:23 [facility] CALCIUM - [facility] 9.9 8.5 - 10.5 mg/dL 10/23/2018 9:23 [...] 9:23 [facility] GLUCOSE - [facility] 97 70 - 100 mg/dL 10/23/2018 9:23 [facility] Potassium 4.1 3.5 - 5.0 mEq/L 10/23/2018 9:23 [facility] Sodium 142 136 - 145 mEq/L 10/23/2018 9:23 [facility] 10/23/2018 8:00 EST 10/23/2018 8:00 EST Narrative [facility] - 10/23/2018 9:23 EST Does PT Have a Latex Allergy? NO us Osbaldo Dewitt NP CHEMISTRY & BLOOD GAS ORDERABL ES Final Result [facility] documented in this encounter Visit Diagnoses Not on filedocumented in this encounter Care Teams Global Marketing Manager Relationship Specialty Start Date End Date Unknown, Provider, PCP - General 07/18/14 08/31/19 documented as of this encounter
--- OUTSIDE RECORDS SUMMARY | 2024-10-22 15:00 | XMS_ITS | Encounter Summary ---
Author Organization [facility]ly [facility] Address [facility] [place] [address] Care Team Providers Care Research Programmer Name Role Phone Osbaldo Dewitt APRN Primary Care Provider [phone] Reason for Visit * Reason Comments Post Op DOS:12-09-23 RIGHT TSA Encounter Details Date Type Department Care Team (Late st Contact Info) Description 12/30/2023 1:30 PM EDT Office [place] [address] Joan Sow PA [facility] [place] [address] s/p right anatomic stemless TSA, 12/09/23 (Dr Colby); s/p left anatomic stemless TSA, 03/11/23 (Dr Colby) Social History Tobacco Use Types Packs/Day Years Used Date Smoking Tobacco: Former Cigarettes Smokeless Tobacco: Never Alcohol Use Standard Drinks/Week Comments Yes 14 (1 standard drink = 0.6 oz pu re alcohol) [facility] Inpatient Questions Answer Date Recorded Does [...] Name: Sandie Manriquez AGE: 63 y.o. MR#: [id number] Date of Visit: 12/30/2023 Procedure: right anatomic [...] She does have follow-up scheduled with her pure pak machine operator. Denies fevers, chills, shortness of breath, chest [...] new images today Survey Responses: 12/26/2023 [facility] Surgical [...] since surgery Yes Where was ER located? [place], [place] Date of ER visit 12/13/2023 Reason for ER visit A-Fib Admitted to hospital since recent ortho surgery No Additional surgery on same body part No Satisfaction with Treatment Satisfied Choose Same Treatment Again Definitely yes 12/26/2023 Orthopeadics [facility] [...] PM The above documentation was completed using Live G[employer] voice recognition software. documented in this encounter Plan of Treatment Not on file documented as of this encounter Results * XR Shoulder Bilat (Generic) (01/27/2024 7:47 AM EDT) airpim WORKSTATION ID [id number] RAD Anatomical Region Laterality Modality Shoulder Bilateral [...] who have questions please contact the health home care coordinator that requested your imaging first. [...] spine degeneration is partially included in the tmjqw-qp-njcr. Visualized lung mensah are clear. Procedure Note Ruth Gambao MD - 01/27/2024 EXAMINATION: XR SHOULDER BILAT [...] Cervicothoracic spine degeneration is partially included in dzthuqvd-jk-oohh. Visualized lung mensah are clear. IMPRESSION Bilateral [...] patients who have questions please contactthe health home care coordinator that requested your imaging first. Christine Colby MD IMG DX ORDERABLES documented in this encounter Visit Diagnoses Diagnosis s/p right anatomic stemless TSA, 12/09/23 (Dr Colby) s/p left anatomic stemless TSA, 03/11/23 (Dr Colby) s/p right anatomic stemless TSA, 12/09/23 (Dr Colby) s/p left anatomic stemless TSA, 03/11/23 (Dr Colby) documented in this encounter Care Teams Research Programmer Relationship Specialty Start Date End Date Osbaldo Dewitt APRN [address] [place] [phone] PCP - General Family Medicine 12/31/22 documented as of this encounter
--- OUTSIDE RECORDS SUMMARY | 2024-10-22 15:00 | XMS_ITS | Encounter Summary ---
Author Organization [facility] Address [address] [place] [address] Care Team Providers Care Grain Operator Name Role Phone Unknown, Provider Primary Care Provider Unava ilable Encounter Details Date Type Department Care Team (Late st Contact Info) Description 04/20/2019 Historical Results Only [facility] - Main [place] [address] [place] [address] Osbaldo Dewitt NP [address] [place], [place] [phone] Social History Tobacco Use Types Packs/Day Years [...] Visit [facility] Integrative Family Medicine [address] [address] Osbaldo Dewitt NP [address] [place] [address] documented as of this encounter Procedures Procedure Name Priority Date/Time Associated Diagnosis Comments PAP TEST Routine 04/20/2019 16:37 EDT HPV DNA DETECTION WITH GENOTYPING, PCR Routine 04/20/2019 11:59 EDT documented in this encounter Results * PAP TEST (04/20/2019 16:37 EDT) 04/20/2019 16:3 7 EDT 04/20/2019 16:39 EDT Narrative [facility] - 04/27/2019 15:39 EDT ----- ------- Name: SANDIE DUVALL ? : [birth year] ?Age/Sex: 59/F ?Unit#: [id number] ? Loc: MHC ? Status: REG POV ?? Reg Date: 04/20/19 ? Pt.Phone Number: ? ----- ------- Specimen: [id number] ?STATUS: SOUT ?Spec Date:04/20/19 ? Physician Copies: ?Osbaldo Dewitt ? Tissues: ? VAG/CERV PAP ? CPT: 09666 ?? Units: ??1 ----- ------- ? CYTOLOGY [...] Performed by [facility], [address] [place] [address] Shorer: Ewa Glover MD PHD ----- ------- us Osbaldo Dewitt NP PATHOLOGY ORDERABLES Final Res ult Performing Organization Address City/[facility]/ZIP Co de Phone Number [facility] * HUMAN PAPILLOMAVIRUS (HPV) DETECTION-HIGH RISK TYPES (04/20/2019 11:59 EDT) HPV other High Risk types, PCR NEG 04/22/2019 15:47 EDT [facility] Comment: Negative for HPV types 16, 18, 31, 33, 35, 39, 45, 51, 52, 56, 58, 59, 66, 68. Method: Cervista HPV HR (High Risk) DNA test. 04/20/2019 11:5 9 EDT 04/21/2019 12:00 EDT us Osbaldo Dewitt NP MICROBIOLOGY - GENERAL ORDERAB LES Final Result Performing Organization Address City/[facility]/ZIP Co de Phone Number [facility] documented in this encounter Visit Diagnoses Not on filedocumented in this encounter Care Teams Grain Operator Relationship Specialty Start Date End Date Unknown, Provider, PCP - General 07/18/14 08/31/19 documented as of this encounter
--- OUTSIDE RECORDS SUMMARY | 2024-10-22 15:00 | XMS_ITS | Encounter Summary ---
Author Organization [facility] Address [address] [place] [address] Care Team Providers Care Store Warehouse Associate Name Role Phone Unknown, Provider Primary Care Provider Osbaldo Moralez NP Primary Care Provider [phone] Encounter Details Date Type Department Care Team (Late st Contact Info) Description 05/05/2014 Historical Results Only [facility] - Main [place] [address] [place], [place] [phone] Lesia Braden APRN [address] [place] [address] Social History Tobacco Use Types [...] Description 11/11/2024 15:30 EST Office Visit [facility] Integrative Family Medicine [facility] [address] [place] [address] Osbaldo Dewitt, LIP CUTTER AND SCORER [address] [place] [phone] documented as of this encounter Procedures Procedure Name Priority Date/Time Associated Diagnosis Comments PAP TEST Routine 05/05/2014 9:57 EDT documented in this encounter Results * PAP TEST (05/05/2014 9:57 EDT) 05/05/2014 9:57 EDT 05/06/2014 9:57 EDT Narrative [facility] - 05/10/2014 8:58 EDT ----- ------- Name: SANDIE DUVALL ? : [birth year] ?Age/Sex: 59/F ?Unit#: [id number] ? Loc: MHC ? Status: REG POV ?? Reg Date: 05/05/14 ? Pt.Phone Number: ? ----- ------- Specimen: [id number] ?STATUS: SOUT ?Spec Date:05/05/14 ? Physician Copies: ?Lesia Braden Tissues: ? Cervical/Endo Pap ?Sharif Frances CPT: 79317 ?? Units: ??1 ----- ------- ? CYTOLOGY [...] confirmed the above diagnosis. Test Performed by [facility], [address] [place] [address] Manager Mechanical Maintenance: Ewa Glover MD PHD ----- ------- us [facility] REPRESENTATIVE PATHOLOGY ORDERABLES Fin al Result [facility] documented in this encounter Visit Diagnoses Not on filedocumented in this encounter Care Teams Store Warehouse Associate Relationship Specialty Start Date End Date Unknown, Provider, PCP - General 07/18/14 08/31/19 Osbaldo Dewitt, LIP CUTTER AND SCORER [address] [place] [phone] PCP - General 09/01/19 documented as of this encounter
--- OUTSIDE RECORDS SUMMARY | 2024-10-22 15:00 | XMS_ITS | Encounter Summary ---
Author Organization [facility] Address [address] [place] [address] Care Team Providers Care Mimeograph Operator Name Role Phone Unknown, Provider Primary Care Provider Osbaldo Moralez NP Primary Care Provider [phone] Encounter Details Date Type Department Care Team (Late st Contact Info) Description 07/07/2014 Historical Results Only [facility] Lab - Main [place] [address] [place], [place] [phone] Lesia Braden APRN [address] [place] [phone] Social History Tobacco Use Types [...] [facility] Integrative Family Medicine [facility] [address] [place] [address] Osbaldo Dewitt, DIRECTOR NETWORK DEVELOPMENT [address] [place], [place] [phone] documented as of this encounter Procedures Procedure Name Priority Date/Time Associated Diagnosis Comments SURGICAL PATHOLOGY Routine 07/07/2014 documented in this encounter Results * SURGICAL PATHOLOGY (07/07/2014) 07/07/2014 07/07/2014 14: 00 EDT Narrative [facility] - 07/08/2014 11:55 EDT PREOP LICHEN SCLEROSIS Procedure: 6-0 LEFT VULVAR PUNCH BX Tissue Removed VULVAR PUNCH BX Clinical Hx: ITCHING BURNING VULVA X 1 YR, DEC MARKINGS ----- ------- Name: SANDIE DUVALL ? : [birth year] ?Age/Sex: 59/F ?Unit#: [id number] ? Loc: MHC ? Status: REG POV ?? Reg Date: 07/07/14 ? Pt.Phone Number: ? ----- ------- Specimen: [id number] ? STATUS: SOUT ?Spec Date:07/07/14 ? Physician Copies: ?Lesia Braden Tissues: A ?? Female Reproductive System (VULVA) ? CPT: 05884 ?? Units: ??1 ?FINAL DIAGNOSIS ? Vulva, [...] the above diagnosis. Test Performed by [facility], [address] [place] [address] [employer] Consultant: Ewa Glover MD PHD ----- ------- us Lesia Braden APRN PATHOLOGY ORDERABLES Fin al Result [facility] documented in this encounter Visit Diagnoses Not on filedocumented in this encounter Care Teams Mimeograph Operator Relationship Specialty Start Date End Date Unknown, Provider, PCP - General 07/18/14 08/31/19 Osbaldo Dewitt, SG [address] [place], [place] [phone] PCP - General 09/01/19 documented as of this encounter
--- OUTSIDE RECORDS SUMMARY | 2024-10-22 15:00 | XMS_ITS | Encounter Summary ---
Author Organization [facility] Address [facility] [place] [address] Care Team Providers Care Field Return Repairer Name Role Phone Osbaldo Dewitt APRN Primary Care Provider [phone] Encounter Details Date Type Department Care Team [...] on filedocumented in this encounter Care Teams Field Return Repairer Relationship Specialty Start Date End Date Osbaldo Dewitt APRN [address] [place] [phone] PCP - General Family Medicine 12/31/22 documented as of this encounter
--- OUTSIDE RECORDS SUMMARY | 2024-10-22 15:00 | XMS_ITS | Encounter Summary ---
Author Organization [facility] [address] Care Team Providers Care Manager Business Intelligence Name Role Phone Osbaldo Dewitt Yaron PAGE Primary Care Provider [phone] Reason for Visit * Auth/Cert (Routine) Specialty Diagnoses / Procedures Referred By Chance t Referred To Contact Diagnoses shoulder arthritis Procedures PRO ARTHROPLASTY GLENOHUMERAL JOINT TOTAL SHOULDER PRO REPAIR BICEPS LONG TENDON TOTAL SHOULDER ARTHROPLASTY (WRVU 22.13) MODIFIER BEACH CHAIR SCHLEIN TENODESIS,BICEPS TENDON (PROXIMAL) (WRVU 10.17) Airam Colby MD [facility] [address] [facility] Referral ID Status Reason Start Date Expiration Date Visits Re quested Visits Authorized [id number] 1 1 Encounter Details Date Type Department Care Team (Latest Contact Info) Description 12/09/2023 5:42 AM EST - 12/09/2023 12:33 PM [facility] Hospital Encounter [place] [address] Airam Colby MD [facility] [place] [address] Discharge Disposition: Home Social History Tobacco Use [...] 24 hours, please call the Anesthesiology Department: [phone] Shortness of breath: If you have severe shortness of breath that seems to go on and on, please go to the nearest ER (emergency room). If a nerve block lasts longer than 48 hours, take action. If the nerve block does not wear off within 48 hours, please call the Anesthesiology Department: [phone] Protect the part of your body that [...] the Anesthesiology Department with concerns or questions: [phone] After hours: Call the hospital drill press set up operator and ask for the anesthesiologist (titi oliveros) international bank manager: [phone] Updated: 08/13/21Scopolamine Patch Discharge Instructions You are [...] Program 8a-5pm Friday-Friday. All other times, call [phone] and ask for the anesthesiologist international bank manager. * Patient Instructions* Bird Corona MD - [...] bowel movement. You can also take an cqni-rko-zrsphjd medication, Miralax if needed tocombat constipation. 2. [...] air or lightly covered. Call your doctor ([phone]) if you develop: Fever greater than 100.5 [...] 1. You will have follow-up appointments at [facility] as indicated below in Future Appointment and Orders. Future Appointments Date Time Provider Department Center 12/26/2023 2:30 PM Joan Sow PA [facility] ORTH 3A [facility] If you have questions or concerns: Friday [...] 1,000 mg by mouth 2 times daily. fwnyrcf-glkd-uitky-oreg-c vernell 100 mg-150 mg- 50 mg-150 mg Capsule Take by mouth. Just tumeric venlafaxine XR (Effexor-XR) 37.5 mg ER 24 hr capsule Take 37.5 mg by mouth daily. 02/03/2023 omeprazole (PriLOSEC) [address] capsule Take 20 mg by mouth nightly. 01/31/2023 hydroCHLOROthiazide (Hydrodiuril) 25 mg tablet Take 25 mg by mouth daily. 02/03/2023 fluticasone propionate (Flonase) 50 mcg/actuation [place], Suspension 2 sprays by Nasal route Once [...] 22.13) performed by Airam Colby MD at [facility] OR PRO REPAIR BICEPS LONG TENDON Left 03/11/2023 TENODESIS,BICEPS TENDON (PROXIMAL) (WRVU 10.17) performed by Airam Colby MD at [facility] OR Home Medications: Medications Prior [...] 5 mg by mouth Twice daily. 12/05/2023 jxmvueq-itwu-nevpo-oreg-capryl 100 mg-150 mg- 50 mg-150 mg Capsule Take by mouth. Just tumeric 12/06/2023 fluticasone propionate (Flonase) 50 mcg/actuation [place], Suspension 2 sprays by Nasal route Once [...] M.D., M.S. Professor of Orthopaedic Surgery [facility] at [facility] Department of [place] [address] documented in this encounter Miscellaneous Notes * Op Note - Airam Colby MD - 12/09/2023 7:55 AM EST [facility] Operative Note Patient Name: Sandie Manriquez : [id number] MR#: [id number] Case Date: 12/09/2023 Surgeon: Surgeon(s) and Role: * Airam Colby MD - Primary * Bird Corona MD - Resident - Assisting * Joan Sow PA - Physician Algorithm Design Engineer Preoperative diagnosis: shoulder pain Postoperative diagnosis: shoulder [...] Used: Chandler Sidus TSA System with Chandler Mcgraw Glenoid [place]: medium Head: 44x16 Glenoid: Size 4 with 4 peg configuration and center TM post Pre-operative Evaluation: The patient was identified in the preoperative holding area. After confirming that the right shoulder was the correct site of surgery with both the patient and the informed consent, a green alatna was placed on the operative shoulder. The [...] 8:32 AM EST Repair Biceps Long Tendon (71877) 12/09/2023 7:24 AM EST shoulder pain MODIFIER SIDUS SHOULDER CHANDLER BIOMET 12/09/2023 7:24 AM EST shoulder pain Arthroplasty, Glenohumeral Joint Total Shoulder ([id number]) 12/09/2023 7:24 AM EST shoulder pain TOTAL [...] questions please contact the health child care counselor that requested your imaging first. ? Electronically signed by: Lynda Parekh MD, [facility] ([phone]), at 12/09/2023 4:09 PM Narrative 12/09/2023 4:09 [...] have questions please contactthe health child care counselor that requested your imaging first. Electronically signed by: Lynda Parekh MD, [facility]([phone]), at 12/09/2023 4:09 PM Airam Colby MD IMG DX ORDERABLES * Surgical Pathology Report (12/09/2023 8:32 AM EST) Final Diagnosis [id number] ? Location: [facility]; The signing pathologist has (i) examined the [...] MD, Simi Verified: ??12/12/2023 9:48 Performed at: ??-[facility] Dept. of Pathology, [place] [address] Interior Wall Assembler: Darion Andrew MD, FCAP, ??CLIA Certificate: [id number] SPECIMEN(S) SUBMITTED A - Right shoulder synovium, rule out ?? inflammatory ??stenosis, excision (1) CLINICAL INFORMATION s/p TSA Right shoulder synovium, rule out inflammatory stenosis SPECIMEN PROCESSING A - Labeled/Fixative : Right shoulder synovium, rule out inflammatory stenosis, fresh. Quantity/Size: Single, 3.2 x 2.1 x 1.0 cm. Tissue Description: Irregular fragment of pink-red fibrous tissue. Sections/Process ing: [employer] sections in 2 cassettes labeled A1-A2. ??pps 12/12/2023 9:48 AM EST [facility] SYNOVIUM BIOPSY SPECIMEN / Unknown 12/09/2023 8:32 AM EST 12/09/2023 8:32 AM EST Airam Colby MD PATHOLOGY/CYTOLOGY O NATHANIEL Performing Organization Address City/[facility]/ZIP Co de Phone Number [facility] [address] [place] [place] [address] * Specimen to Pathology (12/09/2023 8:32 AM EST) AP Specimen 12/09/2023 8:32 AM EST 12/09/2023 8:32 AM EST Narrative [facility] - 12/09/2023 8:32 AM EST Specimen requisition ordered. ??Separate Pathology report to follow Airam Colby MD PATHOLOGY/CYTOLOGY O NATHANIEL Performing Organization Address City/[facility]/ZIP Co de Phone Number [facility] [place] [address] * SCAN DOC: IMPLANTABLE DEVICES (12/09/2023 12:00 [...] MD) documented in this encounter Care Teams Manager Business Intelligence Relationship Specialty Start Date End Date Osbaldo Dewitt APRN [address] [place], [place] [phone] PCP - General Family Medicine 12/31/22 documented as of this encounter
--- OUTSIDE RECORDS SUMMARY | 2024-10-22 15:00 | XMS_ITS | Encounter Summary ---
Author Organization [facility] Address [address] [place] [address] Care Team Providers Care Mold Clamper Name Role Phone Osbaldo Dewitt SUPERVISING DEPUTY Primary Care Provider [phone] Encounter Details Date Type Department Care Team (Late st Contact Info) Description 10/02/2019 Abstract [facility] Adult Primary Care - [address] [address] Ambulatory, Tubing Assembler Social History Tobacco Use Types Packs/Day Years [...] Info) Description 11/11/2024 15:30 EST Office Visit [facility] Integrative Family Medicine [facility] [address] [place], [place] [phone] Osbaldo Dewitt, SUPERVISING DEPUTY [address] [place] [address] documented as of this encounter [...] 1 added in this encounter Care Teams Mold Clamper Relationship Specialty Start Date End Date Osbaldo Dewitt NP [address] [place] [address] PCP - General 09/01/19 documented as of this encounter
--- OUTSIDE RECORDS SUMMARY | 2024-10-22 15:00 | XMS_ITS | Encounter Summary ---
Author Organization [facility] Address [facility] [place] [address] Care Team Providers Care Timber Watchman Name Role Phone Osbaldo Dewitt Yaron PAGE Primary Care Provider [phone] Encounter Details Date Type Department Care Team (Late st Contact Info) Description 12/30/2023 Orders [place] [address] Joan Sow PA [facility] [place] [address] Social History Tobacco Use Types Packs/Day Years [...] on filedocumented in this encounter Care Teams Timber Watchman Relationship Specialty Start Date End Date Osbaldo Dewitt APRN [address] [place] [phone] PCP - General Family Medicine 12/31/22 documented as of this encounter
--- OUTSIDE RECORDS SUMMARY | 2024-10-22 15:00 | XMS_ITS | Encounter Summary ---
Author Organization [facility] [place] [address] Care Team Providers Care Glove Turner And Former Automatic Name Role Phone Osbaldo Dewitt Yaron PAGE Primary Care Provider [phone] Encounter Details Date Type Department Care Team (Late st Contact Info) Description 03/10/2024 8:10 AM EDT Telephone [place] [phone] Christine Colby MD [facility] [place] [address] Social History Tobacco Use Types Packs/Day Years [...] M.D., M.S. Professor of Orthopaedic Surgery [facility] [employer] [facility] Department [place] [address] This note was transcribed with the use of [employer] voice recognition software. documented in this encounter Plan of Treatment Not on file documented as of this encounter Visit Diagnoses Not on filedocumented in this encounter Care Teams Glove Turner And Former Automatic Relationship Specialty Start Date End Date Osbaldo Dewitt APRN [address] [place] [phone] PCP - General Family Medicine 12/31/22 documented as of this encounter
--- OUTSIDE RECORDS SUMMARY | 2024-10-22 15:00 | XMS_ITS | Encounter Summary ---
Author Organization [facility] Address [address] [place] [address] Care Team Providers Care Customer Technical Services Manager Name Role Phone Unknown, Provider Primary Care Provider Unava ilable Encounter Details Date Type Department Care Team (Latest Contact Info) Description 07/08/2016 12:36 EDT - 07/08/2016 23:59 EDT Hospital Encounter [facility] [address] [place] [address] Unknown, Provider, Discharge Disposition: Home or Self [...] Code Departure Means Destination Home or Self [facility] documented in this encounter Plan of Treatment Upcoming Encounters Date Type Department Care Team (Late st Contact Info) Description 11/11/2024 15:30 EST Office Visit [facility] Integrative Family Medicine [address] [phone] Osbaldo Dewitt, MEDICAL DOCTOR [address] [place] [address] documented as of this encounter Visit Diagnoses Not on filedocumented in this encounter Care Teams Customer Technical Services Manager Relationship Specialty Start Date End Date Unknown, Provider, PCP - General 07/18/14 08/31/19 documented as of this encounter
--- OUTSIDE RECORDS SUMMARY | 2024-10-22 15:00 | XMS_ITS | Encounter Summary ---
Author Organization [facility] Address [address] [place] [address] Care Team Providers Care Research Management Associate Name Role Phone Unknown, Provider Primary Care Provider Unava ilable Encounter Details Date Type Department Care Team (Late st Contact Info) Description 07/02/2017 Historical Results Only [facility] - Main [place] [address] [place] [address] Osbaldo Dewitt NP [address] [place], [place] [phone] Social History Tobacco Use Types Packs/Day Years [...] Info) Description 11/11/2024 15:30 EST Office Visit [facility] Integrative Family Medicine [address] [address] Osbaldo Dewitt NP [address] [place] [address] documented as of this encounter Procedures Procedure Name Priority Date/Time Associated Diagnosis Comments COMPREHENSIVE METABOLIC PANEL (CMP) Routine 07/02/2017 8:38 EDT documented in this encounter Results * COMPREHENSIVE METABOLIC PANEL (CMP) (07/02/2017 8:38 EDT) Albumin % 3.6 3.4 - 5.0 g/dL 07/02/2017 9:50 [facility] ALKALINE PHOSPHATASE - [facility] 72 41 - 126 U/L 07/02/2017 9:50 [facility] BILIRUBIN TOTAL 0.4 0.0 - 1.0 mg/dL 07/02/2017 9:50 [facility] BUN - [facility] 13 7 - 18 mg/dL 07/02/2017 9:50 [facility] CALCIUM - [facility] 9.2 8.5 - 10.1 mg/dL 07/02/2017 9:50 [...] [facility] GLUCOSE - [facility] 92 70 - 100 mg/dL 07/02/2017 9:50 [facility] Potassium 4.0 3.5 - 5.0 mEq/L 07/02/2017 9:50 [facility] Sodium 142 135 - 145 mEq/L 07/02/2017 9:50 [facility] TOTAL PROTEIN - [facility] 7.3 6.4 - 8.2 gm/dl 07/02/2017 9:50 EDT [facility] SGOT/AST - [facility] 23 10 - 37 U/L 07/02/2017 9:50 EDT [facility] SGPT/ALT - [facility] 26 12 - 78 U/L 07/02/2017 9:50 EDT [facility] 07/02/2017 8:38 EDT 07/02/2017 8:38 EDT Narrative [facility] - 07/02/2017 9:50 EDT Does PT Have a Latex Allergy? NO us Osbaldo Dewitt NP CHEMISTRY & BLOOD GAS ORDERABL ES Final Result [facility] documented in this encounter Visit Diagnoses Not on filedocumented in this encounter Care Teams Research Management Associate Relationship Specialty Start Date End Date Unknown, Provider, PCP - General 07/18/14 08/31/19 documented as of this encounter
--- OUTSIDE RECORDS SUMMARY | 2024-10-22 15:00 | XMS_ITS | Encounter Summary ---
Author Organization [facility] Address [address] [place] [address] Care Team Providers Care Tack Welder Name Role Phone Unknown, Provider Primary Care Provider Unava ilable Encounter Details Date Type Department Care Team (Late st Contact Info) Description 07/08/[address] [facility] Radiology Results [address] [place] [address] Osbaldo Dewitt NP [address] [place], [place] [id number] Social History Tobacco Use Types Packs/Day Years [...] Office Visit [facility] Integrative Family [facility] [address] [place], [place] [address] Osbaldo Dewitt NP [address] [place], [place] [phone] documented as of this encounter Procedures Procedure [...] will contact ? your patient directly. ? DENTAL HYGIENIST:kad ?Reported By: Chet De La O MD ? CC: ? Transcribed Date/Time: 07/09/2016 (924) ? Bench Assembler: ANI ? Printed Date/Time: 03/19/2019 (3565) ? PAGE 1 ? Signed Report ? [...] is needed we willcontact your patient directly. DENTAL HYGIENIST:juliana Reported By: Chet De La O MD CC: Transcribed Date/Time: 07/09/2016 (924) Bench Assembler: ANI Printed Date/Time: 03/19/2019 (6786) PAGE 1 Signed Report us Osbaldo Dewitt LINE CLEARANCE FOREMAN IMG MAMMOGRAPHY ORDERABLES Fin al Result documented in this encounter Visit Diagnoses Not on filedocumented in this encounter Care Teams Tack Welder Relationship Specialty Start Date End Date Unknown, Provider, PCP - General 07/18/14 08/31/19 documented as of this encounter
--- OUTSIDE RECORDS SUMMARY | 2024-10-22 15:00 | XMS_ITS | Encounter Summary ---
Author Organization [facility] Address [address] [place] [address] Care Team Providers Care Team Physician Name Role Phone Unavailable Primary Care Provider Unavailabl e Encounter Details Date Type Department Care Team (Latest Contact Info) Description 07/07/2014 13:34 EDT - 07/07/2014 23:59 EDT Hospital Encounter [facility] [address] [place] [address] Unknown, Provider, Discharge Disposition: Home or Self [...] Code Departure Means Destination Home or Self Jail documented in this encounter Plan of Treatment Upcoming Encounters Date Type Department Care Team (Late st Contact Info) Description 11/11/2024 15:30 EST Office Visit [facility] Integrative Family Medicine [facility] [address] [place] [address] Osbaldo Dewitt, CHAIN PEGGER [address] [place] [address] documented as of this encounter Visit Diagnoses Not on filedocumented in this encounter
--- OUTSIDE RECORDS SUMMARY | 2024-10-22 15:00 | XMS_ITS | Encounter Summary ---
Author Organization [facility] Address [address] [place] [address] Care Team Providers Care Pharmacy Technician Program Director Name Role Phone Unknown, Provider Primary Care Provider Unava ilable Encounter Details Date Type Department Care Team (Late st Contact Info) Description 09/05/2016 Historical Results Only [facility] - Main [place] [address] [place] [address] Bird Watkins MD Social History Tobacco Use [...] [facility] [address] [place], [place] [address] Osbaldo Dewitt, SG [address] [place] [address] documented as of this encounter Procedures Procedure Name Priority Date/Time Associated Diagnosis Comments SURGICAL PATHOLOGY Routine 09/05/2016 12 :32 EST documented in this encounter Results * SURGICAL PATHOLOGY (09/05/2016 12:32 EST) 09/05/2016 12:3 2 EST 09/05/2016 12:32 EST Narrative [facility] - 09/06/2016 13:05 EST ----- ------- Name: SANDIE DUVALL ? : 58 ?Age/Sex: 58/F ?Unit#: [id number] ? Loc: END ? Status: DEP CLI ?? Reg Date: 09/05/16 ? Pt.Phone Number: ? ----- ------- Specimen: [id number] ? STATUS: SOUT ?Spec Date:09/05/16 ? Physician Copies: ?Bird Watkins MD ?? Tissues: A ?? Endoscopy specimen (SPLENIC FLEXURE) ? Osbaldo Dewitt ? CPT: 06375 ?? Units: ??1 ?FINAL DIAGNOSIS ? COLON, [...] above diagnosis. Test Performed by [facility], [address] [place] [address] Senior Commissary Agent: Ewa Glover MD PHD ----- ------- us Bird Watkins MD PATHOLOGY ORDERABLES Final Re sult [facility] documented in this encounter Visit Diagnoses Not on filedocumented in this encounter Care Teams Pharmacy Technician Program Director Relationship Specialty Start Date End Date Unknown, Provider, PCP - General 07/18/14 08/31/19 documented as of this encounter
--- OUTSIDE RECORDS SUMMARY | 2024-10-22 15:00 | XMS_ITS | Encounter Summary ---
Author Organization [facility] Address [facility] [place] [address] Care Team Providers Care Coal Tram Driver Name Role Phone Osbaldo Dewitt APRN Primary Care Provider [phone] Encounter Details Date Type Department Care Team [...] on filedocumented in this encounter Care Teams Coal Tram Driver Relationship Specialty Start Date End Date Osbaldo Dewitt APRN [address] [place] [address] [phone] PCP - General Family Medicine 12/31/22 documented as of this encounter
--- OUTSIDE RECORDS SUMMARY | 2024-10-22 15:00 | XMS_ITS | Encounter Summary ---
Author Organization [facility] Address [address] [place] [address] Care Team Providers Care Security Guard Name Role Phone Unknown, Provider MD Primary Care Provider Unava ilable Encounter Details Date Type Department Care Team (Latest Contact Info) Description 05/13/2017 14:17 EDT - 05/13/2017 23:59 EDT Hospital Encounter [facility] [address] [place] [address] Unknown, Provider, Discharge Disposition: Home or Self [...] Code Departure Means Destination Home or Self Longterm documented in this encounter Plan of Treatment Upcoming Encounters Date Type Department Care Team (Late st Contact Info) Description 11/11/2024 15:30 EST Office Visit [facility] [address] [phone] Osbaldo Dewitt NP [address] [place], [place] [phone] documented as of this encounter Visit Diagnoses Not on filedocumented in this encounter Care Teams Security Guard Relationship Specialty Start Date End Date Unknown, Provider, PCP - General 07/18/14 08/31/19 documented as of this encounter
--- OUTSIDE RECORDS SUMMARY | 2024-10-22 15:00 | XMS_ITS | Encounter Summary ---
Author Organization [facility] Address [facility] [place] [address] Care Team Providers Care Electrical Machinist Name Role Phone Osbaldo Dewitt CAMILO Primary Care Provider [phone] Encounter Details Date Type Department Care Team (Latest Contact Info) Description 01/27/2024 7:28 AM EDT - 01/27/2024 11:59 PM EDT Hospital Encounter XRay at [address] [place] [address] Christine Colby MD [facility] [place] [address] s/p right anatomic stemless TSA, 12/09/23 (Dr Colby); s/p left anatomic stemless TSA, 03/11/23 (Dr Colby) Discharge Disposition: Home Social History Tobacco Use Types Packs/Day Years Used Date Smoking Tobacco: Former Cigarettes Smokeless Tobacco: Never Alcohol Use Standard Drinks/Week Comments Yes 14 (1 standard drink = 0.6 oz pu re alcohol) [facility] Inpatient Questions Answer Date Recorded [...] 1,000 mg by mouth 2 times daily. xtkuxwo-vtcg-rkifl-oreg-ca pryl 100 mg-150 mg- 50 mg-150 mg Capsule Take by mouth. Just tumeric venlafaxine XR (Effexor-XR) 37.5 mg ER 24 hr capsule Take 37.5 mg by mouth daily. 02/03/2023 omeprazole (PriLOSEC) [address] capsule Take 20 mg by mouth nightly. 01/31/2023 hydroCHLOROthiazide (Hydrodiuril) 25 mg tablet Take 25 mg by mouth daily. 02/03/2023 fluticasone propionate (Flonase) 50 mcg/actuation [place], Suspension 2 sprays by Nasal route Once [...] (Generic) (01/27/2024 7:47 AM EDT) WORKSTATION ID [id number] [facility] Anatomical Region Laterality Modality Shoulder Bilateral Digital [...] who have questions please contact the health skin care therapist that requested your imaging first. ? Electronically signed by: Ruth Gamboa MD, [facility] ([phone]), at 01/27/2024 1:24 PM Narrative 01/27/2024 1:24 [...] spine degeneration is partially included in the tchkp-hg-yxaf. Visualized lung mensah are clear. Procedure Note [...] Cervicothoracic spine degeneration is partially included in nuytrdyg-zm-dvtg. Visualized lung mensah are clear. IMPRESSION Bilateral [...] patients who have questions please contactthe health skin care therapist that requested your imaging first. Electronically signed by: Ruth Gamboa MD, [facility]([phone]), at 01/27/2024 1:24 PM Christine Colby MD IMG DX ORDERABLES documented in this encounter Visit Diagnoses Diagnosis s/p right anatomic stemless TSA, 12/09/23 (Dr Colby) s/p left anatomic stemless TSA, 03/11/23 (Dr Colby) documented in this encounter Care Teams Electrical Machinist Relationship Specialty Start Date End Date Osbaldo Dewitt APRN [address] [place] [address] [phone] PCP - General Family Medicine 12/31/22 documented as of this encounter
--- OUTSIDE RECORDS SUMMARY | 2024-10-22 15:00 | XMS_ITS | Encounter Summary ---
Author Organization [facility] Address [address] [place] [address] Care Team Providers Care Steam Tank Operator Name Role Phone Osbaldo Dewitt METAL FABRICATOR Primary Care Provider [phone] Encounter Details Date Type Department Care Team (Late st Contact Info) Description 10/04/2019 Results Only [facility] - Main [place] [address] [place] [address] Bird Watkins MD Social History [...] [facility] Integrative Family Medicine [facility] [address] [place], [place] [phone] Osbaldo Dewitt NP [address] [place] [address] documented as of this encounter Procedures Procedure Name Priority Date/Time Associated Diagnosis Comments SURGICAL PATHOLOGY Routine 10/04/2019 documented in this encounter Results * SURGICAL PATHOLOGY (10/04/2019) 10/04/2019 10/04/2019 10: [address] [facility] - 10/05/2019 10:05 EST ----- ------- Name: SANDIE DUVALL ? : 58 ?Age/Sex: 59/F ?Unit#: [id number] ? Loc: END ? Status: DEP CLI ?? Reg Date: 10/04/19 ? Pt.Phone Number: ? ----- ------- Specimen: [id number] ? STATUS: SOUT ?Spec Date:10/04/19 ? Physician Copies: ?Bird Watkins MD ?? Tissues: A ?? Endoscopy specimen ([place]) ? Osbaldo Dewitt ? CPT: 19599 ?? Units: ??1 ?FINAL DIAGNOSIS ? GASTROESOPHAGEAL [...] diagnosis. Test Performed by [facility], [address] [place] [address] Ground Surveillance Systems Operator: Ewa Glover MD PHD ----- ------- us Bird Watkins MD PATHOLOGY ORDERABLES Final Re sult [facility] documented in this encounter Visit Diagnoses Not on filedocumented in this encounter Care Teams Steam Tank Operator Relationship Specialty Start Date End Date Osbaldo Dewitt METAL FABRICATOR [address] [place] [address] PCP - General 09/01/19 documented as of this encounter
--- OUTSIDE RECORDS SUMMARY | 2024-10-22 15:00 | XMS_ITS | Encounter Summary ---
Author Organization [facility] Address [address] [place] [address] Care Team Providers Care Pneumatic Jacketer Name Role Phone Osbaldo Dewitt NP Primary Care Provider [phone] Reason for Visit * Reason Comments Other Encounter Details Date Type Department Care Team (Late st Contact Info) Description 09/28/2019 Refill [facility] - [facility] Medicine [address] [address] Osbaldo Dewitt NP [address] [place] [address] Other Social History Tobacco Use [...] Visit [facility] [address] [address] Osbaldo Dewitt NP [address] [place] [address] documented as of this encounter Visit Diagnoses Diagnosis Gastroesophageal reflux disease, esophagitis presence not specified- Primary documented in this encounter Care Teams Pneumatic Jacketer Relationship Specialty Start Date End Date Osbaldo Dewitt NP [address] [place] [address] PCP - General 09/01/19 documented as of this encounter
--- OUTSIDE RECORDS SUMMARY | 2024-10-22 15:00 | XMS_ITS | Encounter Summary ---
Author Organization [facility] Address [address] [place] [address] Care Team Providers Care Furnace Checker Name Role Phone Unknown, Provider MD Primary Care Provider Unava ilable Encounter Details Date Type Department Care Team (Latest Contact Info) Description 11/20/2017 23:48 EST - 11/20/2017 23:59 EST Hospital Encounter [facility] [address] [place] [address] Unknown, Provider, Discharge Disposition: Home or Self [...] Code Departure Means Destination Home or Self Prison documented in this encounter Plan of Treatment Upcoming Encounters Date Type Department Care Team (Late st Contact Info) Description 11/11/2024 15:30 EST Office Visit [address] [phone] Osbaldo Dewitt NP [address] [place], [place] [phone] documented as of this encounter Visit Diagnoses Not on filedocumented in this encounter Care Teams Furnace Checker Relationship Specialty Start Date End Date Unknown, Provider, PCP - General 07/18/14 08/31/19 documented as of this encounter
--- OUTSIDE RECORDS SUMMARY | 2024-10-22 15:00 | XMS_ITS | Encounter Summary ---
Author Organization [facility] Address [address] [place] [address] Care Team Providers Care Air Control/Anti Air Warfare Officer Name Role Phone Unknown, Provider Primary Care Provider Unava ilable Encounter Details Date Type Department Care Team (Late st Contact Info) Description 10/25/2014 Results Only [facility] [phone] Lyudmila Contreras NP [address] [place] [address] Social History Tobacco Use Types [...] Office Visit [facility] Integrative Family Medicine [facility] [address] [place], [place] [phone] Osbaldo Dewitt NP [address] [place] [address] documented as of this encounter [...] ? SANDIE DUVALL ? Accession #: ? [id number] ? : ? 1960 (Age: 54) ??F [...] Noe 10/26/2014 09:18 AM End of Report [facility] 10/25/2014 9:00 EST 10/26/2014 9:00 EST us Lyudmila Contreras NP PATHOLOGY ORDERABLES Final Resu lt [facility] [address] [place] [address] documented in this encounter Visit Diagnoses Not on filedocumented in this encounter Care Teams Air Control/Anti Air Warfare Officer Relationship Specialty Start Date End Date Unknown, Provider, PCP - General 07/18/14 08/31/19 documented as of this encounter
--- OUTSIDE RECORDS SUMMARY | 2024-10-22 15:00 | XMS_ITS | Encounter Summary ---
Author Organization [facility] [place] [address] Care Team Providers Care Knitter Helper Name Role Phone EsdrasOsbaldo weston Yaron PAGE Primary Care Provider [phone] Reason for Visit * Auth/Cert (Routine) Specialty Diagnoses / Procedures Referred By Chance t Referred To Contact Diagnoses shoulder arthritis Procedures PRO ARTHROPLASTY GLENOHUMERAL JOINT TOTAL SHOULDER PRO REPAIR BICEPS LONG TENDON TOTAL SHOULDER ARTHROPLASTY (WRVU 22.13) MODIFIER BEACH CHAIR SCHLEIN TENODESIS,BICEPS TENDON (PROXIMAL) (WRVU 10.17) Airam Colby MD [facility] [place] [address] [facility] Referral ID Status Reason Start Date Expiration Date Visits Re quested Visits Authorized [id number] 1 1 Encounter Details Date Type Department Care Team (Late st Contact Info) Description 12/09/2023 7:30 AM EST - 12/09/2023 10:30 AM EST Surgery [place] [address] Airam Colby MD [facility] [place] [address] TOTAL SHOULDER ARTHROPLASTY (WRVU 22.13) Social History [...] 24 hours, please call the Anesthesiology Department: [phone] Shortness of breath: If you have severe shortness of breath that seems to go on and on, please go to the nearest ER (emergency room). If a nerve block lasts longer than 48 hours, take action. If the nerve block does not wear off within 48 hours, please call the Anesthesiology Department: [phone] Protect the part of your body that [...] the Anesthesiology Department with concerns or questions: [phone] After hours: Call the hospital snack foods mixer operator and ask for the anesthesiologist (titi oliveros) concierge receptionist: [phone] Updated: 08/13/21Scopolamine Patch Discharge Instructions You are [...] Program 8a-5pm Friday-Friday. All other times, call [phone] and ask for the anesthesiologist concierge receptionist. * Patient Instructions* Bird Corona MD - [...] bowel movement. You can also take an gcka-pdj-wbkrwyk medication, Miralax if needed tocombat constipation. 2. [...] air or lightly covered. Call your doctor ([phone]) if you develop: Fever greater than 100.5 [...] 1. You will have follow-up appointments at [facility] as indicated below in Future Appointment and Orders. Future Appointments Date Time Provider Department Center 12/26/2023 2:30 PM Joan Sow PA [facility] ORTH 3A [facility] If you have questions or concerns: Friday [...] 1,000 mg by mouth 2 times daily. jcalewu-ypyy-swjlr-oreg-c vernell 100 mg-150 mg- 50 mg-150 mg Capsule Take by mouth. Just tumeric venlafaxine XR (Effexor-XR) 37.5 mg ER 24 hr capsule Take 37.5 mg by mouth daily. 02/03/2023 omeprazole (PriLOSEC) [address] capsule Take 20 mg by mouth nightly. 01/31/2023 hydroCHLOROthiazide (Hydrodiuril) 25 mg tablet Take 25 mg by mouth daily. 02/03/2023 fluticasone propionate (Flonase) 50 mcg/actuation Oral, Suspension 2 sprays by Nasal route Once [...] 22.13) performed by Airam Colby MD at [facility] MAIN OR PRO REPAIR BICEPS LONG TENDON Left 03/11/2023 TENODESIS,BICEPS TENDON (PROXIMAL) (WRVU 10.17) performed by Aiarm Colby MD at [facility] MAIN OR Home Medications: Medications Prior [...] 5 mg by mouth Twice daily. 12/05/2023 jzftrjk-wzhk-rtrpo-oreg-capryl 100 mg-150 mg- 50 mg-150 mg Capsule Take by mouth. Just tumeric 12/06/2023 fluticasone propionate (Flonase) 50 mcg/actuation Oral, Suspension 2 sprays by Nasal route Once [...] Surgery [facility] Department [place] [address] documented in this encounter Miscellaneous Notes * Op Note - Airam Colby MD - 12/09/2023 7:55 AM EST [facility] Operative Note Patient Name: Sandie Manriquez : [id number] MR#: [id number] Case Date: 12/09/2023 Surgeon: Surgeon(s) and Role: * Airam Colby MD - Primary * Bird Corona MD - Resident - Assisting * Joan Sow PA - Physician Vice President Of Compliance Preoperative diagnosis: shoulder pain Postoperative diagnosis: shoulder [...] Used: Chandler Sidus TSA System with Chandler [place] Glenoid Wisner: medium Head: 44x16 Glenoid: Size 4 with 4 peg configuration and center TM post Pre-operative Evaluation: The patient was identified in the preoperative holding area. After confirming that the right shoulder was the correct site of surgery with both the patient and the informed consent, a green la posta was placed on the operative shoulder. The [...] 8:32 AM EST Repair Biceps Long Tendon ([id number]) 12/09/2023 7:24 AM EST shoulder pain MODIFIER SIDUS SHOULDER CHANDLER BIOMET 12/09/2023 7:24 AM EST shoulder pain Arthroplasty, Glenohumeral Joint Total Shoulder ([id number]) 12/09/2023 7:24 AM EST shoulder pain TOTAL [...] who have questions please contact the health long term care pharmacist that requested your imaging first. ? Electronically signed by: Lynda Parekh MD, [facility] ([phone]), at 12/09/2023 4:09 PM Narrative 12/09/2023 4:09 [...] patients who have questions please contactthe health long term care pharmacist that requested your imaging first. Electronically signed by: Lynda Parekh MD, [facility]([phone]), at 12/09/2023 4:09 PM Airam Colby MD IMG DX ORDERABLES * Surgical Pathology Report (12/09/2023 8:32 AM EST) Final Diagnosis [id number] ? Location: [facility]; The signing pathologist has (i) examined [...] MD, Simi Verified: ??12/12/2023 9:48 Performed at: ??-[facility] Dept. of Pathology, [place] [address] Airways Control Specialist: Darion Andrew MD, FCAP, ??CLIA Certificate: [id number] SPECIMEN(S) SUBMITTED A - Right shoulder synovium, rule out ?? inflammatory ??stenosis, excision (1) CLINICAL INFORMATION s/p TSA Right shoulder synovium, rule out inflammatory stenosis SPECIMEN PROCESSING A - Labeled/Fixative : Right shoulder synovium, rule out inflammatory stenosis, fresh. Quantity/Size: Single, 3.2 x 2.1 x 1.0 cm. Tissue Description: Irregular fragment of pink-red fibrous tissue. Sections/Process ing: Oracle Consultant sections in 2 cassettes labeled A1-A2. ??pps 12/12/2023 9:48 AM EST [facility] SYNOVIUM BIOPSY SPECIMEN / Unknown 12/09/2023 8:32 AM EST 12/09/2023 8:32 AM EST Airam Colby MD PATHOLOGY/CYTOLOGY O NATHANIEL Performing Organization Address City/[facility]/ZIP Co de Phone Number [facility] [address] [place] [address] * Specimen to Pathology (12/09/2023 8:32 AM EST) AP Specimen 12/09/2023 8:32 AM EST 12/09/2023 8:32 AM EST Narrative [facility] - 12/09/2023 8:32 AM EST Specimen requisition ordered. ??Separate Pathology report to follow Airam Colby MD PATHOLOGY/CYTOLOGY O NATHANIEL Performing Organization Address City/[facility]/ZIP Co de Phone Number [facility] [address] * SCAN DOC: IMPLANTABLE DEVICES (12/09/2023 12:00 [...] MD) documented in this encounter Care Teams Knitter Helper Relationship Specialty Start Date End Date Osbaldo Dewitt APRN [address] [place] [phone] PCP - General Family Medicine 12/31/22 documented as of this encounter
--- OUTSIDE RECORDS SUMMARY | 2024-10-22 15:01 | XMS_ITS | Encounter Summary ---
Author Organization [facility] Address [facility] [place] [address] Care Team Providers Care Maintenance Of Way Foreman Name Role Phone Osbaldo Dewitt APRN Primary Care Provider [phone] Encounter Details Date Type Department Care Team [...] on filedocumented in this encounter Care Teams Maintenance Of Way Foreman Relationship Specialty Start Date End Date Osbaldo Dewitt APRN [address] [place] [phone] PCP - General Family Medicine 12/31/22 documented as of this encounter
--- OUTSIDE RECORDS SUMMARY | 2024-10-22 15:01 | XMS_ITS | Encounter Summary ---
Author Organization [facility] Address [facility] [place] [address] Care Team Providers Care Dyehouse Worker Name Role Phone Osbaldo Dewitt APRN Primary Care Provider [phone] Reason for Referral * Physical Therapy (Routine) - Closed Specialty Diagnoses / Procedures Referred By Chance le Referred To Contact Physical Therapy Diagnoses Primary osteoarthritis of both shoulders Christine Colby MD [facility] [place] [address] Physical Therapy, Espinoza Newman [address] [place] [address] Referral ID Status Reason Start Date Expiration Date V isits Requested Visits Authorized [id number] Closed Evaluate and Treat 11/13/2023 05/11/2024 12 12 Reason for Visit * Reason Comments Pre-op Exam 12-09-23 RIGHT TSA Encounter Details Date Type Department Care Team (Latest Contact Info) Description 11/13/2023 11:20 AM EST Office [place] [address] Christine Colby MD [facility] [place] [address] Primary osteoarthritis of both shoulders; Primary osteoarthritis [...] - 11/13/2023 11:20 AM EST Shoulder Service [place], [place] Date of Evaluation: 11/13/2023 Subjective: Sandie [...] risks, the rehab course, or the prognosis. Crhistine Colby M.D., M.S. Professor of Orthopaedic Surgery [facility] at [facility] Department [place] [address] This note was created with [employer] voice recognition software. Please excuse any typos. [...] making sure they take care of child and adolescent therapist, sleeping situations, and having help with ADL'sbefore [...] surgery. Chronic anti-coagulation: yes, per PCP or Residential Fee Appraiser Anticoagulation plan post op: POSTOPANTICOAG: TBD by PCP/Residential Fee Appraiser 11/13/2023 03/06/2023 02/07/2023 Opioid PDMP [place] PDMP [...] schedulers direct number Mae Knight.Nani.LAT, VTLAT, ATC Medical Lab Technologist, Orthopedics and Sports Medicine Tel Fax [facility] documented in this encounter Plan of Treatment Scheduled Referrals Name Type Priority Associated Diagnoses Orde r Schedule Referral to Physical Therapy Outpatient Referral Routine Primary osteoarthritis of both shoulders Ordered: 11/13/2023 documented as of this encounter Visit Diagnoses Diagnosis Primary osteoarthritis of both shoulders Primary osteoarthritis of right shoulder Primary localized osteoarthrosis, shoulder region documented in this encounter Care Teams Dyehouse Worker Relationship Specialty Start Date End Date Osbaldo Dewitt APRN [address] [place] [phone] PCP - General Family Medicine 12/31/22 documented as of this encounter
--- OUTSIDE RECORDS SUMMARY | 2024-10-22 15:01 | XMS_ITS | Encounter Summary ---
Author Organization [facility] Address [facility] [place] [address] Care Team Providers Care Program Aide Group Work Name Role Phone Osbaldo Dewitt CAMILO Primary Care Provider [phone] Reason for Visit * Reason Onset Date Comments Other 02/10/2023 Encounter Details Date Type Department Care Team (Late st Contact Info) Description 02/10/2023 [place] [address] Christine Colby MD [facility] DR ORTHOPAEDIC [place] [address] Other Social History Tobacco Use Types Packs/Day [...] ways. Best number to reach the caller: [phone] documented in this encounter Plan of Treatment Not on file documented as of this encounter Visit Diagnoses Not on filedocumented in this encounter Care Teams Program Aide Group Work Relationship Specialty Start Date End Date Osbaldo Dewitt APRN [address] [place] [phone] PCP - General Family Medicine 12/31/22 documented as of this encounter
--- OUTSIDE RECORDS SUMMARY | 2024-10-22 15:01 | XMS_ITS | Encounter Summary ---
Author Organization [facility] Address [facility] [place] [address] Care Team Providers Care Case Checker Name Role Phone Osbaldo Dewitt APRN Primary Care Provider [phone] Encounter Details Date Type Department Care Team [...] on filedocumented in this encounter Care Teams Case Checker Relationship Specialty Start Date End Date Osbaldo Dewitt APRN [address] [place] [phone] PCP - General Family Medicine 12/31/22 documented as of this encounter
--- OUTSIDE RECORDS SUMMARY | 2024-10-22 15:01 | XMS_ITS | Encounter Summary ---
Author Organization [facility] [place] [address] Care Team Providers Care Cattery Operator Name Role Phone Osbaldo Dewitt Yaron PAGE Primary Care Provider [phone] Reason for Visit * Auth/Cert (Routine) Specialty Diagnoses / Procedures Referred By Chance t Referred To Contact Diagnoses shoulder arthritis Procedures PRO ARTHROPLASTY GLENOHUMERAL JOINT TOTAL SHOULDER PRO REPAIR BICEPS LONG TENDON TOTAL SHOULDER ARTHROPLASTY (WRVU 22.13) MODIFIER BEACH CHAIR SCHLEIN TENODESIS,BICEPS TENDON (PROXIMAL) (WRVU 10.17) Christine Colby MD [facility] [place] [address] [facility] Referral ID Status Reason Start Date Expiration Date Visits Re quested Visits Authorized [id number] 1 1 Encounter Details Date Type Department Care Team (Late st Contact Info) Description 03/11/2023 7:22 AM EDT Anesthesia Event [place] [address] Roderick Garcia MD [facility] [place] [address] Anesthesia Record Procedure Summary Procedure Name Responsible [...] 0648; metacarpal vein (top of hand), right; klkj-dwx-wpuzqu catheter system; Anatomical Landmarks; 20 gauge, 1 [...] Procedure Summary Date: 03/11/23 Room / Location: [facility] MAIN OR Anesthesia Start: 721 Anesthesia Stop: 954 Procedures: TOTAL SHOULDER ARTHROPLASTY (WRVU 22.13) (Left: Shoulder) MODIFIER BEACH CHAIR SCHLEIN (Shoulder) TENODESIS,BICEPS TENDON (PROXIMAL) (WRVU 10.17) (Left: Shoulder) MODIFIER SIDUS SHOULDER CHANDLER BIOMET Diagnosis: (shoulder arthritis) Surgeons: Christine Colby MD Responsible Provider: Roderick Garcia MD Anesthesia Type: general ASA Status: 2 All Anesthesia Providers: Anesthesiologist: Roderick Garcia MD WET PROCESS MILLER: Jay Lynn CRNA Vitals Value Taken Time [...] throughout, tolerated procedure without issue. Performed by: Resident/WET PROCESS MILLER: Selene Lindsey MD Fellow: Gladys Clarke MD [...] arthritis. 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 Performed by: ?? Resident/WET PROCESS MILLER: ? Selene Lindsey MD ?? Fellow: ?Gladys Clarke MD ?? Attending Physician: ? Kevin Smith MD Authorized by: Kevin Smith MD Kevin Smith MD LENS CLEANER [facility] documented in this encounter Visit Diagnoses [...] Units documented in this encounter Care Teams Cattery Operator Relationship Specialty Start Date End Date Osbaldo Dewitt, CAMILO [address] [place] [phone] PCP - General Family Medicine 12/31/22 documented as of this encounter
--- OUTSIDE RECORDS SUMMARY | 2024-10-22 15:01 | XMS_ITS | Encounter Summary ---
Author Organization [facility] Address [facility] [place] [address] Care Team Providers Care Housekeeper And Laundry Assistant Name Role Phone Osbaldo Dewitt APRN Primary Care Provider [phone] Encounter Details Date Type Department Care Team [...] on filedocumented in this encounter Care Teams Housekeeper And Laundry Assistant Relationship Specialty Start Date End Date Osbaldo Dewitt APRN [address] [place] [phone] PCP - General Family Medicine 12/31/22 documented as of this encounter
--- OUTSIDE RECORDS SUMMARY | 2024-10-22 15:01 | XMS_ITS | Encounter Summary ---
Author Organization [facility] [place] [address] Care Team Providers Care Cath Lab Nurse Name Role Phone Osbaldo Dewitt APRN Primary Care Provider [phone] Reason for Referral * Physical Therapy (Routine) - Closed Specialty Diagnoses / Procedures Referred By Chance le Referred To Contact Diagnoses Primary osteoarthritis of both shoulders Christine Colby MD [facility] [place] [address] Referral ID Status Reason Start Date Expiration Date V isits Requested Visits Authorized [id number] Closed Evaluate and Treat 03/06/2023 09/02/2023 12 12 Reason for Visit * Reason Comments Pre-op Exam 03-11-23 Left TSA Encounter Details Date Type Department Care Team (Latest Contact Info) Description 03/06/2023 10:40 AM EDT Office [place] [address] Christine Colby MD [facility] [place] [address] Primary osteoarthritis of both shoulders; Primary osteoarthritis [...] - 03/06/2023 10:40 AM EDT Shoulder Service [place], [place] Date of Evaluation: 03/06/2023 Subjective: Sandie [...] Colby M.D., M.S. Professor of Orthopaedic Surgery [facility] Department [place] [address] This note was created with [employer] voice recognition software. Please excuse any typos. [...] making sure they take care of child development assistant, sleeping situations, and having help with ADL'sbefore [...] services post-op: No BRITNI Knight, VTLAT, ATC Back Shoe Operator, Orthopedics and Sports Medicine Tel Fax [facility] documented in this encounter Plan of Treatment Scheduled Referrals Name Type Priority Associated Diagnoses Orde r Schedule Referral to Physical Therapy Outpatient Referral Routine Primary osteoarthritis of both shoulders Ordered: 03/06/2023 documented as of this encounter Visit Diagnoses Diagnosis Primary osteoarthritis of both shoulders Primary osteoarthritis of left shoulder Primary localized osteoarthrosis, shoulder region documented in this encounter Care Teams Cath Lab Nurse Relationship Specialty Start Date End Date Osbaldo Dewitt APRN [address] [place] [phone] PCP - General Family Medicine 12/31/22 documented as of this encounter
--- OUTSIDE RECORDS SUMMARY | 2024-10-22 15:01 | XMS_ITS | Encounter Summary ---
Author Organization [facility] Address [facility] [place] [address] Care Team Providers Care Single Pointed Operator Name Role Phone Osbaldo Dewitt APRN [...] on filedocumented in this encounter Care Teams Single Pointed Operator Relationship Specialty Start Date End Date Osbaldo Dewitt APRN [address] [place] [phone] PCP - General Family Medicine 12/31/22 documented as of this encounter
--- OUTSIDE RECORDS SUMMARY | 2024-10-22 15:01 | XMS_ITS | Encounter Summary ---
Author Organization [facility] [place] [address] Care Team Providers Care Worm Farm Laborer Name Role Phone Osbaldo Dewitt APRN Primary Care Provider [phone] Reason for Visit * Reason Onset Date Comments Pre Procedure Call 07/22/2023 Encounter Details Date Type Department Care Team (Late st Contact Info) Description 07/22/2023 Telephone [place] [address] Veto Odell MD [facility] [place] [address] Pre Procedure Call (/) Social History Tobacco [...] on filedocumented in this encounter Care Teams Worm Farm Laborer Relationship Specialty Start Date End Date Osbaldo Dewitt APRN [address] [place] [phone] PCP - General Family Medicine 12/31/22 documented as of this encounter
--- OUTSIDE RECORDS SUMMARY | 2024-10-22 15:01 | XMS_ITS | Encounter Summary ---
Author Organization [facility] Address [facility] [place] [address] Care Team Providers Care Bench Assembler Operator Name Role Phone Osbaldo Dewitt APRN Primary Care Provider [phone] Encounter Details Date Type Department Care Team [...] on filedocumented in this encounter Care Teams Bench Assembler Operator Relationship Specialty Start Date End Date Osbaldo Dewitt APRN [address] [place] [phone] PCP - General Family Medicine 12/31/22 documented as of this encounter
--- OUTSIDE RECORDS SUMMARY | 2024-10-22 15:01 | XMS_ITS | Encounter Summary ---
[place] [address] Care Team Providers Care Container Crane Operator Name Role Phone Osbaldo Dewitt APRN Primary Care Provider [phone] Encounter Details Date Type Department Care Team (Late st Contact Info) Description 02/20/2023 [place] [address] Christine Colby MD [facility] [place] [address] Social History Tobacco Use Types Packs/Day Years [...] on filedocumented in this encounter Care Teams Container Crane Operator Relationship Specialty Start Date End Date Osbaldo Dewitt APRN [address] [place] [address] [place] [phone] PCP - General Family Medicine 12/31/22 documented as of this encounter
--- OUTSIDE RECORDS SUMMARY | 2024-10-22 15:01 | XMS_ITS | Encounter Summary ---
Author Organization [facility] Address [facility] [place] [address] Care Team Providers Care Crayon Sorting Machine Feeder Name Role Phone Osbaldo Dewitt CAMILO Primary Care Provider [phone] Encounter Details Date Type Department Care Team (Latest Contact Info) Description 04/25/2023 1:46 PM EDT - 04/25/2023 11:59 PM EDT Hospital Encounter XRay at [address] [place] [address] Christine Colby MD [facility] [place] [address] s/p left anatomic stemless TSA, 03/11/23 (Dr [...] Sig Dispensed Refills Start Date End Date hxxhtkv-oipn-oludy-oreg -capryl 100 mg-150 mg- 50 mg-150 mg Capsule Take by mouth. Just tumeric venlafaxine XR (Effexor-XR) 37.5 mg ER 24 hr capsule Take 37.5 mg by mouth daily. 02/03/2023 omeprazole (PriLOSEC) [address] capsule Take 20 mg by mouth nightly. 01/31/2023 hydroCHLOROthiazide (Hydrodiuril) 25 mg tablet Take 25 mg by mouth daily. 02/03/2023 fluticasone propionate (Flonase) 50 mcg/actuation [place], Suspension 2 sprays by Nasal route Once [...] who have questions please contact the health livestock caretaker that requested your imaging first. ? Electronically signed by: Lynda Parekh MD, [facility] ([phone]), at 04/25/2023 4:11 PM Narrative 04/25/2023 4:11 [...] patients who have questions please contactthe health livestock caretaker that requested your imaging first. Electronically signed by: Lynda Parekh MD, [facility]([phone]), at 04/25/2023 4:11 PM Christine Colby MD IMG DX ORDERABLES documented in this encounter Visit Diagnoses Diagnosis s/p left anatomic stemless TSA, 03/11/23 (Dr Colby) documented in this encounter Care Teams Crayon Sorting Machine Feeder Relationship Specialty Start Date End Date Osbaldo Dewitt APRN [address] [place] [phone] PCP - General Family Medicine 12/31/22 documented as of this encounter
--- OUTSIDE RECORDS SUMMARY | 2024-10-22 15:01 | XMS_ITS | Encounter Summary ---
Author Organization [facility] [place] [address] Care Team Providers Care Water Service Dispatcher Name Role Phone Osbaldo Dewitt APRN Primary Care Provider [phone] Reason for Visit * Diagnostic Test (Routine) - Closed Specialty Diagnoses / Procedures Referred By Chance le Referred To Contact Neurology Diagnoses Neuralgia and neuritis Chante Salas APRN [facility] [place] [address] [facility] [address] [place] [address] Referral ID Status Reason Start Date Expiration Date V isits Requested Visits Authorized [id number] Closed Test Only 06/10/2023 06/09/2024 1 1 Encounter Details Date Type Department Care Team (Latest Contact Info) Description 07/14/2023 11:00 AM EDT [place] [phone] Aditya Boss MD [facility] [place] [address] Carpal tunnel syndrome on left [...] for EDX studies by Chante Salas APRN [facility] DR ORTHOPAEDIC [place] [address] to look for evidence of cervical radiculopathy [...] syndrome documented in this encounter Care Teams Water Service Dispatcher Relationship Specialty Start Date End Date Osbaldo Dewitt APRN [address] [place] [phone] PCP - General Family Medicine 12/31/22 documented as of this encounter
--- OUTSIDE RECORDS SUMMARY | 2024-10-22 15:01 | XMS_ITS | Encounter Summary ---
Author Organization [facility] Address [facility] [place] [address] Care Team Providers Care Deputy Grand Jury Name Role Phone Osbaldo Dewitt APRN Primary Care Provider [phone] Encounter Details Date Type Department Care Team [...] on filedocumented in this encounter Care Teams Deputy Grand Jury Relationship Specialty Start Date End Date Osbaldo Dewitt APRN [address] [place] [phone] PCP - General Family Medicine 12/31/22 documented as of this encounter
--- OUTSIDE RECORDS SUMMARY | 2024-10-22 15:01 | XMS_ITS | Encounter Summary ---
Author Organization [facility] [place] [address] Care Team Providers Care Zanjero Name Role Phone Osbaldo Dewitt APRN Primary Care Provider [phone] Encounter Details Date Type Department Care Team (Late st Contact Info) Description 02/11/2023 Orders [place] [address] Christine Colby MD [facility] [place] [address] Chronic pain in left shoulder Social History [...] region documented in this encounter Care Teams Zanjero Relationship Specialty Start Date End Date Osbaldo Dewitt APRN [address] [place] [phone] PCP - General Family Medicine 12/31/22 documented as of this encounter
--- OUTSIDE RECORDS SUMMARY | 2024-10-22 15:01 | XMS_ITS | Encounter Summary ---
Author Organization [facility] [address] Care Team Providers Care Wild Life Photographer Name Role Phone Osbaldo Dewitt Yaron PAGE Primary Care Provider [phone] Reason for Visit * Auth/Cert (Routine) Specialty Diagnoses / Procedures Referred By Chance t Referred To Contact Diagnoses shoulder arthritis Procedures PRO ARTHROPLASTY GLENOHUMERAL JOINT TOTAL SHOULDER PRO REPAIR BICEPS LONG TENDON TOTAL SHOULDER ARTHROPLASTY (WRVU 22.13) MODIFIER BEACH CHAIR SCHLEIN TENODESIS,BICEPS TENDON (PROXIMAL) (WRVU 10.17) Airam Colby MD [facility] [place] [address] [facility] Referral ID Status Reason Start Date Expiration Date Visits Re quested Visits Authorized [id number] 1 1 Encounter Details Date Type Department Care Team (Late st Contact Info) Description 03/11/2023 7:30 AM EDT - 03/11/2023 10:40 AM EDT Surgery [place] [phone] Airam Colby MD [facility] [place] [address] TOTAL SHOULDER ARTHROPLASTY (WRVU 22.13) Social History [...] bowel movement. You can also take an wxbl-aqk-msrdtjm medication, Miralax if needed tocombat constipation. 2. [...] get the area wet. Wound (Mepilex): 1. Sutures/lzi: No external liz or sutures inplace. Sutures [...] air or lightly covered. Call your doctor ([phone]) if you develop: Fever greater than 100.5 Severe nausea or vomiting Increasing pain that is not controlled by pain medications Increasing redness, swelling, or drainage from incisions Change in sensation Misc: Remember that ICE and elevation are very important to decrease swelling and control pain. Youshould use the ICE for 20-30 minutes at a time. FOLLOW-UP APPOINTMENTS: You will have follow-up appointments at [facility] as indicated below in Future Appointment and Orders. Future Appointments Date Time Provider Department Center 03/25/2023 10:00 AM Rosalee Powers PA [facility] ORTH 3A [facility] If you have questions or concerns: Friday through Friday, 8 AM - 5 PM, please call Dr. Airam Colby MD's office at . If it is after 5 PM or on the weekend, please call and ask to speak with the Orthopedic resident on-call. documented in this encounter Medications at Time of Discharge Medication Sig Dispensed Refills Start Date End Date ccuxmih-jfzd-tigng-oreg -capryl 100 mg-150 mg- 50 mg-150 mg Capsule Take by mouth. Just tumeric venlafaxine XR (Effexor-XR) 37.5 mg ER 24 hr capsule Take 37.5 mg by mouth daily. 02/03/2023 omeprazole (PriLOSEC) [address] capsule Take 20 mg by mouth nightly. 01/31/2023 hydroCHLOROthiazide (Hydrodiuril) 25 mg tablet Take 25 mg by mouth daily. 02/03/2023 fluticasone propionate (Flonase) 50 mcg/actuation [place], Suspension 2 sprays by Nasal route Once [...] Admission Medication Sig Dispense Refill Last Dose syvqhvw-zzny-yyuaq-oreg-capryl 100 mg-150 mg- 50 mg-150 mg Capsule Take by mouth. 03/09/2023 venlafaxine XR (Effexor-XR) 37.5 mg ER 24 hr capsule 03/11/2023 at 0430 omeprazole (PriLOSEC) [address] capsule Take 20 mg by mouth nightly. 03/09/2023 losartan (Cozaar) 100 mg tablet Take 100 mg by mouth daily. 03/10/2023 hydroCHLOROthiazide (Hydrodiuril) 25 mg tablet 03/10/2023 at 0430 fluticasone propionate (Flonase) 50 mcg/actuation [place], Suspension 2 sprays by Nasal route Once [...] arthroplasty. Elijah Lugo MD Orthopaedic Surgery Pager: [phone] Attending addendum: The preceeding portion of this note was written by Dr. Lugo. I personally saw and evaluated the patient at the bedside and I agree with the assessment and plan documented above. Airam Colby M.D., M.S. Professor of Orthopaedic Surgery [facility] Department [place] [address] documented in this encounter Miscellaneous Notes * Op Note - Airam Colby MD - 03/11/2023 7:54 AM EDT [facility] Operative Note Patient Name: Sandie Manriquez : [id number] MR#: [id number] Case Date: 03/11/2023 Surgeon: Surgeon(s) and Role: * Airam Colby MD - Primary * Elijah Lugo MD - Resident - Assisting * Joan Sow PA - Physician Glass Products Inspector Preoperative diagnosis: shoulder arthritis Postoperative diagnosis: shoulder [...] Used: Chandler Sidus TSA System with Chandler Lincoln Glenoid [place]: medium Head: 42x15 Glenoid: Size 4 with 4 peg configuration and center TM post Pre-operative Evaluation: The patient was identified in the preoperative holding area. After confirming that the left shoulder was the correct site of surgery with both the patient and the informed consent, a green keweenaw wasplaced on the operative shoulder. The plan [...] EDT shoulder arthritis Repair Biceps Long Tendon (78686) Yes 03/11/2023 7:22 AM EDT shoulder arthritis MODIFIER BEACH CHAIR SCHLEIN Yes 03/11/2023 7:22 AM EDT shoulder arthritis Arthroplasty, Glenohumeral Joint Total Shoulder (42261) Yes 03/11/2023 7:22 AM EDT shoulder arthritis [...] who have questions please contact the health animal caretaker supervisor that requested your imaging first. ? Electronically signed by: Betty Abrams MD, [facility] ([phone]), at 03/11/2023 2:30 PM Narrative 03/11/2023 2:30 [...] patients who have questions please contactthe health animal caretaker supervisor that requested your imaging first. Electronically signed by: Betty Abrams MD, [facility]([phone]), at 03/11/2023 2:30 PM Airam Colby MD IMG DX ORDERABLES * Surgical Pathology Report (03/11/2023 8:24 AM EDT) Final Diagnosis [id number] ? Location: [facility]; A The signing pathologist has (i) examined the relevant preparation(s) for the specimen(s) and (ii) rendered or confirmed the diagnosis(es). . 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 of Pathology, [place] [address] [employer] Systems Installer: Darion Andrew MD, FCAP, ??CLIA Certificate: [id number] DISCUSSION While non-specific, the presence of patchy lymphoplasmacytic inflammation could raise diagnostic consideration of rheumatoid arthritis, in the appropriate clinical context. Correlation with clinical and serologic studies is suggested. SPECIMEN(S) SUBMITTED A - synovium, excision (1) CLINICAL INFORMATION Shoulder arthritis SPECIMEN PROCESSING A - Labeled/Fixative: Synovium, fresh. Quantity/Size: Single, 3.0 x 2.1 x 0.6 cm. Tissue Description: Soft red papillary tissue. Sections/Processing: Dental Lab Technician sections in 1 cassette labeled A1. ??aaw 03/13/2023 10:20 AM EDT [facility] SYNOVIUM BIOPSY SPECIMEN / Unknown 03/11/2023 8:24 AM EDT 03/11/2023 8:24 AM EDT Airam Colby MD PATHOLOGY/CYTOLOGY O NATHANIEL Performing Organization Address [facility]/ZIP Co de Phone Number [facility] [address] [place] [address] * Specimen to Pathology (03/11/2023 8:24 AM EDT) AP Specimen 03/11/2023 8:24 AM EDT 03/11/2023 8:24 AM EDT Narrative [facility] - 03/11/2023 8:24 AM EDT Specimen requisition ordered. ??Separate Pathology report to follow Airam Colby MD PATHOLOGY/CYTOLOGY O NATHANIEL Performing Organization Address [facility]/State/ZIP Co de Phone Number [facility] [place] [place] [address] * SCAN DOC: IMPLANTABLE DEVICES (03/11/2023 12:00 [...] patch. documented in this encounter Care Teams Wild Life Photographer Relationship Specialty Start Date End Date Osbaldo Dewitt APRN [address] [place] [phone] PCP - General Family Medicine 12/31/22 documented as of this encounter
--- OUTSIDE RECORDS SUMMARY | 2024-10-22 15:01 | XMS_ITS | Encounter Summary ---
Author Organization [facility] Address [facility] [place] [address] Care Team Providers Care Drilling Field Professional Name Role Phone Osbaldo Dewitt APRN Primary [...] of both shoulders Osbaldo Dewitt APRN [address] [place] [address] [facility] [address] [place] [phone] Referral ID Status Reason Start Date Expiration Date V isits Requested Visits Authorized [id number] Closed Consult, Test & Treat PCP Updated and/or Approved 12/31/2022 12/31/2023 6 6 Encounter Details Date Type Department Care Team (Latest Contact Info) Description 02/07/2023 9:00 AM EDT Office [place] [address] Christine Colby MD [facility] DR ORTHOPAEDIC [place] [address] Primary osteoarthritis of both shoulders [...] - 02/07/2023 9:00 AM EDT Shoulder Service [place], [place] New Patient Evaluation Date of Evaluation: 02/07/2023 Referring Provider: Osbaldo Dewitt History of Present Illness: Sandie Manriquez is a pleasant 62 y.o. 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 She has been dealing with problems for years, but has been especially painful recently. She saw Dr. Patel in [place] and discussed shoulder arthroplasty. At this point, [...] Daily. ??? fluticasone propionate (Flonase) 50 mcg/actuation [place], Suspension 2 sprays by Nasal route Once [...] M.S. Professor of Orthopaedic Surgery [facility] [employer] [facility] Department [place] [address] This note was created with [employer] voice recognition software. Please excuse any typos. documented in this encounter Plan of Treatment Not on file documented as of this encounter Visit Diagnoses Diagnosis Primary osteoarthritis of both shoulders documented in this encounter Care Teams Drilling Field Professional Relationship Specialty Start Date End Date Osbaldo Dewitt APRN [address] [place] [phone] PCP - General Family Medicine 12/31/22 documented as of this encounter
--- OUTSIDE RECORDS SUMMARY | 2024-10-22 15:01 | XMS_ITS | Encounter Summary ---
Author Organization [facility] [place] [address] Care Team Providers Care Textile Machine Operator Name Role Phone Osbaldo Dewitt APRN Primary Care Provider [phone] Encounter Details Date Type Department Care Team (Late st Contact Info) Description 01/15/2023 Ancillary Procedure Radiology Library at [facility] [place] [address] Christine Colby MD [facility] [place] [address] Social History Tobacco Use Types Packs/Day Years [...] CT Shoulder (01/15/2023 12:00 AM EDT) Narrative [facility] - 01/22/2023 6:30 PM EDT This exam is auto-finalizing. It's purpose is for storage only. Christine Colby MD [facility] [place] LIBRARY ORD ERABLES [place], [place] documented in this encounter Visit Diagnoses Not on filedocumented in this encounter Care Teams Textile Machine Operator Relationship Specialty Start Date End Date Osbaldo Dewitt APRN [address] [place] [phone] PCP - General Family Medicine 12/31/22 documented as of this encounter
--- OUTSIDE RECORDS SUMMARY | 2024-10-22 15:01 | XMS_ITS | Encounter Summary ---
Author Organization [facility] [place] [address] Care Team Providers Care Industrial Truck Mechanic Name Role Phone Osbaldo Dewitt CAMILO Primary Care Provider [phone] Reason for Visit * Reason Onset Date Comments Prior Authorization 08/11/2023 Encounter Details Date Type Department Care Team (Late st Contact Info) Description 08/11/2023 [place] [address] Christine Colby MD [facility] DR ORTHOPAEDIC [place] [address] Prior Authorization Social History Tobacco Use Types [...] EST Contacted Munir for prior authorization at [phone] and [phone] Authorization Status: Approved Prior Authorization Approval Number: [id number] Valid dates: 08/11/23-02/07/24 Order and demographics faxed to [facility] at [phone] Left message on patient's voice mail to inform authorization was complete and to contact [facility] to schedule study. documented in this encounter Plan of Treatment Not on file documented as of this encounter Visit Diagnoses Not on filedocumented in this encounter Care Teams Industrial Truck Mechanic Relationship Specialty Start Date End Date Osbaldo Dewitt APRN [address] [place] [phone] PCP - General Family Medicine 12/31/22 documented as of this encounter
--- OUTSIDE RECORDS SUMMARY | 2024-10-22 15:01 | XMS_ITS | Encounter Summary ---
Author Organization [facility] [place] [address] Care Team Providers Care Assembler Body Name Role Phone Osbaldo Dewitt APRN Primary Care Provider [phone] Encounter Details Date Type Department Care Team (Late st Contact Info) Description 01/17/2023 Ancillary Procedure Radiology Library [place] [facility] [place] [address] Christine Colby MD [facility] [place] [address] Social History Tobacco Use Types Packs/Day Years [...] Shoulder (01/17/2023 12:00 AM EDT) Narrative [facility] - 01/22/2023 6:31 PM EDT This exam is auto-finalizing. It's purpose is for storage only. Christine Colby MD [facility] FILM LIBRARY ORD ERABLES [place], [place] documented in this encounter Visit Diagnoses Not on filedocumented in this encounter Care Teams Assembler Body Relationship Specialty Start Date End Date Osbaldo Dewitt APRN [address] [place] [phone] PCP - General Family Medicine 12/31/22 documented as of this encounter
--- OUTSIDE RECORDS SUMMARY | 2024-10-22 15:01 | XMS_ITS | Encounter Summary ---
Author Organization [facility] [place] [address] Care Team Providers Care Process Helper Name Role Phone EsdrasOsbaldo weston Yaron PAGE Primary Care Provider [phone] Reason for Visit * Auth/Cert (Routine) Specialty Diagnoses / Procedures Referred By Chance t Referred To Contact Diagnoses shoulder arthritis Procedures PRO ARTHROPLASTY GLENOHUMERAL JOINT TOTAL SHOULDER PRO REPAIR BICEPS LONG TENDON TOTAL SHOULDER ARTHROPLASTY (WRVU 22.13) MODIFIER BEACH CHAIR SCHLEIN TENODESIS,BICEPS TENDON (PROXIMAL) (WRVU 10.17) Airam Colby MD [facility] [place] [address] [facility] Referral ID Status Reason Start Date Expiration Date Visits Re quested Visits Authorized [id number] 1 1 Encounter Details Date Type Department Care Team (Latest Contact Info) Description 03/11/2023 6:17 AM EDT - 03/11/2023 11:58 AM EDT Hospital Encounter [place] [address] Airam Colby MD [facility] [place] [address] Discharge Disposition: Home Social History Tobacco Use [...] bowel movement. You can also take an zidp-uhj-effcanp medication, Miralax if needed tocombat constipation. 2. [...] air or lightly covered. Call your doctor ([phone]) if you develop: Fever greater than 100.5 Severe nausea or vomiting Increasing pain that is not controlled by pain medications Increasing redness, swelling, or drainage from incisions Change in sensation Misc: Remember that ICE and elevation are very important to decrease swelling and control pain. Youshould use the ICE for 20-30 minutes at a time. FOLLOW-UP APPOINTMENTS: You will have follow-up appointments at [facility] as indicated below in Future Appointment and Orders. Future Appointments Date Time Provider Department Center 03/25/2023 10:00 AM Rosalee Powers PA [facility] 3A [facility] If you have questions or concerns: Friday through Friday, 8 AM - 5 PM, please call Dr. Airam Colby MD's office at . If it is after 5 PM or on the weekend, please call and ask to speak with the Orthopedic resident on-call. documented in this encounter Medications at Time of Discharge Medication Sig Dispensed Refills Start Date End Date jggoqyz-dqok-yklte-oreg -capryl 100 mg-150 mg- 50 mg-150 mg Capsule Take by mouth. Just tumeric venlafaxine XR (Effexor-XR) 37.5 mg ER 24 hr capsule Take 37.5 mg by mouth daily. 02/03/2023 omeprazole (PriLOSEC) [address] capsule Take 20 mg by mouth nightly. 01/31/2023 hydroCHLOROthiazide (Hydrodiuril) 25 mg tablet Take 25 mg by mouth daily. 02/03/2023 fluticasone propionate (Flonase) 50 mcg/actuation [place], Suspension 2 sprays by Nasal route Once [...] Admission Medication Sig Dispense Refill Last Dose tugkawi-ehzw-cfpif-oreg-capryl 100 mg-150 mg- 50 mg-150 mg Capsule Take by mouth. 03/09/2023 venlafaxine XR (Effexor-XR) 37.5 mg ER 24 hr capsule 03/11/2023 at 0430 omeprazole (PriLOSEC) [address] capsule Take 20 mg by mouth nightly. 03/09/2023 losartan (Cozaar) 100 mg tablet Take 100 mg by mouth daily. 03/10/2023 hydroCHLOROthiazide (Hydrodiuril) 25 mg tablet 03/10/2023 at 0430 fluticasone propionate (Flonase) 50 mcg/actuation [place], Suspension 2 sprays by Nasal route Once [...] arthroplasty. Elijah Lugo MD Orthopaedic Surgery Pager: [phone] Attending addendum: The preceeding portion of this note was written by Dr. Lugo. I personally saw and evaluated the patient at the bedside and I agree with the assessment and plan documented above. Airam Colby M.D., M.S. Professor of Orthopaedic Surgery [facility] Department [place] [address] documented in this encounter Miscellaneous Notes * Op Note - Airam Colby MD - 03/11/2023 7:54 AM EDT [facility] Operative Note Patient Name: Sandie Manriquez : [id number] MR#: [id number] Case Date: 03/11/2023 Surgeon: Surgeon(s) and Role: * Airam Colby MD - Primary * Elijah Lugo MD - Resident - Assisting * Joan Sow PA - Physician Structures Engineer Preoperative diagnosis: shoulder arthritis Postoperative diagnosis: shoulder [...] Used: Chandler Sidus TSA System with Chandler Coyanosa Glenoid Gary: medium Head: 42x15 Glenoid: Size 4 with 4 peg configuration and center TM post Pre-operative Evaluation: The patient was identified in the preoperative holding area. After confirming that the left shoulder was the correct site of surgery with both the patient and the informed consent, a green wales wasplaced on the operative shoulder. The plan [...] need to include opening and closing). AIRAM COLYB MD 03/11/2023 documented in this encounter Plan [...] EDT shoulder arthritis Repair Biceps Long Tendon (21133) Yes 03/11/2023 7:22 AM EDT shoulder arthritis MODIFIER BEACH CHAIR SCHLEIN Yes 03/11/2023 7:22 AM EDT shoulder arthritis Arthroplasty, Glenohumeral Joint Total Shoulder (43238) Yes 03/11/2023 7:22 AM EDT shoulder arthritis [...] have questions please contact the health career technical education instructor that requested your imaging first. ? Narrative 03/11/2023 2:30 PM EDT EXAMINATION: XR [...] who have questions please contactthe health career technical education instructor that requested your imaging first. Airam Colby MD IMG DX ORDERABLES * Surgical Pathology Report (03/11/2023 8:24 AM EDT) Final Diagnosis [id number] ? Location: [facility]; [facility]; A The signing pathologist has (i) examined the relevant preparation(s) for the specimen(s) and (ii) rendered or confirmed the diagnosis(es). . ?Surgical Pathology DIAGNOSIS A - Soft tissue, synovium, excision: - Synovial hyperplasia with patchy lymphoplasmacytic inflammation (see discussion) Electronically signed by: ?Leia OSORIO, PhD, Nelson Hillman Verified: ??03/13/2023 10:20 ??Dermatopathologist , Bone & Soft Tissue Pathologist Performed at: ??-[facility] Dept. of Pathology, [place] [address] Tugboat Pilot: Darion Andrew MD, FCAP, ??CLIA Certificate: [id number] DISCUSSION While non-specific, the presence of patchy lymphoplasmacytic inflammation could raise diagnostic consideration of rheumatoid arthritis, in the appropriate clinical context. Correlation with clinical and serologic studies is suggested. SPECIMEN(S) SUBMITTED A - synovium, excision (1) CLINICAL INFORMATION Shoulder arthritis SPECIMEN PROCESSING A - Labeled/Fixative: Synovium, fresh. Quantity/Size: Single, 3.0 x 2.1 x 0.6 cm. Tissue Description: Soft red papillary tissue. Sections/Processing: Behavioral Therapist sections in 1 cassette labeled A1. ??aaw 03/13/2023 10:20 AM EDT [facility] SYNOVIUM BIOPSY SPECIMEN / Unknown 03/11/2023 8:24 AM EDT 03/11/2023 8:24 AM EDT Airam Colby MD PATHOLOGY/CYTOLOGY O NATHANIEL Performing Organization Address [facility] Co de Phone Number [facility] [address] [place] [address] * Specimen to Pathology (03/11/2023 8:24 AM EDT) AP Specimen 03/11/2023 8:24 AM EDT 03/11/2023 8:24 AM EDT Narrative [facility] - 03/11/2023 8:24 AM EDT Specimen requisition ordered. ??Separate Pathology report to follow Airam Colby MD PATHOLOGY/CYTOLOGY O NATHANIEL Performing Organization Address [facility]/ZIP Co de Phone Number [facility] [place] [address] * SCAN DOC: IMPLANTABLE DEVICES (03/11/2023 12:00 [...] patch. documented in this encounter Care Teams Process Helper Relationship Specialty Start Date End Date Osbaldo Dewitt APRN [address] [place] [phone] PCP - General Family Medicine 12/31/22 documented as of this encounter
--- OUTSIDE RECORDS SUMMARY | 2024-10-22 15:01 | XMS_ITS | Encounter Summary ---
Author Organization [facility] [place] [address] Care Team Providers Care Capsule Filler Name Role Phone Kiara Pittman MD Primary Care Provider [phone] Encounter Details Date Type Department Care Team (Late st Contact Info) Description 12/24/2022 Ancillary Procedure Radiology Library at [facility] [place] [address] Osbaldo Dewitt, SUPERVISOR STOCK RANCH [address] [place] [address] Social History Tobacco Use Types [...] DX Shoulder (12/24/2022 12:00 AM EDT) Narrative [facility] - 01/01/2023 2:39 PM EDT This exam is auto-finalizing. It's purpose is for storage only. Osbaldo Dewitt APRN IM FILM LIBRARY ORD ERABLES [place], [place] documented in this encounter Visit Diagnoses Not on filedocumented in this encounter Care Teams Capsule Filler Relationship Specialty Start Date End Date Kiara Pittman MD PCP - General 08/28/10 12/30/22 documented as of this encounter
--- OUTSIDE RECORDS SUMMARY | 2024-10-22 15:01 | XMS_ITS | Encounter Summary ---
Author Organization [facility] [place] [address] Care Team Providers Care Acoustical Logging Engineer Name Role Phone Osbaldo Dewitt APRN Primary Care Provider [phone] Encounter Details Date Type Department Care Team (Late st Contact Info) Description 07/22/2023 Orders [place] [address] Christine Colby MD [facility] [place]AED[place] [address] Social History Tobacco Use Types Packs/Day Years [...] on filedocumented in this encounter Care Teams Acoustical Logging Engineer Relationship Specialty Start Date End Date Osbaldo Dewitt APRN [address] [place] [phone] PCP - General Family Medicine 12/31/22 documented as of this encounter
--- OUTSIDE RECORDS SUMMARY | 2024-10-22 15:01 | XMS_ITS | Encounter Summary ---
Author Organization [facility] [place] [address] Care Team Providers Care Project Surveyor Name Role Phone Osbaldo Dewitt APRN Primary Care Provider [phone] Encounter Details Date Type Department Care Team (Late st Contact Info) Description 09/03/2023 5:10 PM EST Ancillary Procedure Radiology Library at [facility] [place] [address] Osbaldo Dewitt APRN [address] [place] [phone] Social History Tobacco Use Types Packs/Day [...] Upper Extremity (09/03/2023 5:06 PM EST) Narrative [facility] - 09/03/2023 5:06 PM EST This exam is auto-finalizing. It's purpose is for storage only. Osbaldo Dewitt APRN [facility] FILM LIBRARY ORD ERABLES [place], [place] documented in this encounter Visit Diagnoses Not on filedocumented in this encounter Care Teams Project Surveyor Relationship Specialty Start Date End Date Osbaldo Dewitt APRN [address] [place] [phone] PCP - General Family Medicine 12/31/22 documented as of this encounter
--- OUTSIDE RECORDS SUMMARY | 2024-10-22 15:01 | XMS_ITS | Encounter Summary ---
Author Organization [facility] Address [facility] [place] [address] Care Team Providers Care Banbury Machine Operator Name Role Phone EsdrasOsbaldo weston Yaron PAGE Primary Care Provider [phone] Reason for Visit * Reason Comments Follow Up Surgery 6-6-23 L TSA WOUN D CHECK Follow-up NXR 6-6-23 L TSA WOUND CHECK Encounter Details Date Type Department Care Team (Latest Contact Info) Description 05/21/2023 8:20 AM EDT Office Visit [place] [address] Rosalee Powers PA [facility] [place] [address] Postoperative abscess involving suture Social History Tobacco [...] NAME: Sandie Manriquez AGE: 63 y.o. MR#: [id number] DATE OF VISIT: 05/21/2023 DATE OF SURGERY: [...] obtained SURVEY RESPONSES: 04/25/2023 8:46 AM [facility] Non-surgical Followup Visit PROMIS-10 General Health Good [...] concerns. The above documentation was completed using [employer] voice recognition software. documented in this encounter Plan of Treatment Not on file documented as of this encounter Visit Diagnoses Diagnosis Postoperative abscess involving suture documented in this encounter Care Teams Banbury Machine Operator Relationship Specialty Start Date End Date Osbaldo Dewitt APRN [address] [place] [phone] PCP - General Family Medicine 12/31/22 documented as of this encounter
--- OUTSIDE RECORDS SUMMARY | 2024-10-22 15:01 | XMS_ITS | Encounter Summary ---
Author Organization [facility] Address [facility] [place] [address] Care Team Providers Care Ornamental Ironworker Name Role Phone Osbaldo Dewitt APRN Primary Care Provider [phone] Encounter Details Date Type Department Care Team [...] on filedocumented in this encounter Care Teams Ornamental Ironworker Relationship Specialty Start Date End Date Osbaldo Dewitt APRN [address] [place] [phone] PCP - General Family Medicine 12/31/22 documented as of this encounter
--- OUTSIDE RECORDS SUMMARY | 2024-10-22 15:01 | XMS_ITS | Encounter Summary ---
Author Organization [facility] [place] [address] Care Team Providers Care Office Administrative Assistant Name Role Phone Osbaldo Dewitt APRN Primary Care Provider Encounter Details Date Type Department Care Team (Late st Contact Info) Description 08/08/2023 Orders [place] [address] Christine Colby MD [facility] [place] [address] Chronic pain in right shoulder Social History [...] region documented in this encounter Care Teams Office Administrative Assistant Relationship Specialty Start Date End Date Osbaldo Dewitt APRN [address] [place] [address] [phone] PCP - General Family Medicine 12/31/22 documented as of this encounter
--- OUTSIDE RECORDS SUMMARY | 2024-10-22 15:01 | XMS_ITS | Encounter Summary ---
Author Organization [facility] Address [facility] [place] [address] Care Team Providers Care Owner Operator Tanker Truck Driver Name Role Phone Osbaldo Dewitt APRN Primary Care Provider [phone] Reason for Visit * Reason Comments Follow-up 03-11-23 L [facility] Encounter Details Date Type Department Care Team (Late st Contact Info) Description 04/25/2023 2:40 PM EDT Office [place] [address] Christine Colby MD [facility] [place] [address] Status post replacement of left shoulder joint [...] - 04/25/2023 2:40 PM EDT Shoulder Service [place], [place] Date of Evaluation: 04/25/2023 Subjective: Sandie [...] were answered today. Christine Colby M.D., M.S. Hook Puller of Orthopaedic Surgery Shoulder, Elbow, and Sports Medicine Department of Orthopaedic Surgery [place], [place] [address] This note was created with [employer] voice recognition software. Please excuse any typos. documented in this encounter Plan of Treatment Not on file documented as of this encounter Visit Diagnoses Diagnosis Status post replacement of left shoulder joint documented in this encounter Care Teams Owner Operator Tanker Truck Driver Relationship Specialty Start Date End Date Osbaldo Dewitt APRN [address] [place] [phone] PCP - General Family Medicine 12/31/22 documented as of this encounter
--- OUTSIDE RECORDS SUMMARY | 2024-10-22 15:01 | XMS_ITS | Encounter Summary ---
Author Organization [facility] [place] [address] Care Team Providers Care Regulatory Coordinator Name Role Phone Osbaldo Dewitt APRN Primary Care Provider Encounter Details Date Type Department Care Team (Late st Contact Info) Description 07/14/2023 External [place] [address] Aditya Boss MD [facility] [place] [address] Social History Tobacco Use Types Packs/Day Years [...] on filedocumented in this encounter Care Teams Regulatory Coordinator Relationship Specialty Start Date End Date Osbaldo Dewitt APRN [address] [place] [phone] PCP - General Family Medicine 12/31/22 documented as of this encounter
--- OUTSIDE RECORDS SUMMARY | 2024-10-22 15:01 | XMS_ITS | Encounter Summary ---
Author Organization [facility] Address [facility] [place] [address] Care Team Providers Care Digital Advertising Specialist Name Role Phone Osbaldo Dewitt APRN Primary Care Provider [phone] Encounter Details Date Type Department Care Team [...] on filedocumented in this encounter Care Teams Digital Advertising Specialist Relationship Specialty Start Date End Date Osbaldo Dewitt APRN [address] [place] [phone] PCP - General Family Medicine 12/31/22 documented as of this encounter
--- OUTSIDE RECORDS SUMMARY | 2024-10-22 15:01 | XMS_ITS | Encounter Summary ---
Author Organization [facility] [place] [address] Care Team Providers Care Room Clerk Name Role Phone Osbaldo Dewitt APRN Primary Care Provider [phone] Encounter Details Date Type Department Care Team [...] filedocumented in this encounter Care Teams Room Clerk Relationship Specialty Start Date End Date Osbaldo Dewitt APRN [address] [place] [phone] PCP - General Family Medicine 12/31/22 documented as of this encounter
--- OUTSIDE RECORDS SUMMARY | 2024-10-22 15:01 | XMS_ITS | Encounter Summary ---
Author Organization [facility] Address [facility] [place] [address] Care Team Providers Care Household Chores Name Role Phone Osbaldo Dewitt CAMILO Primary Care Provider [phone] Reason for Visit * Reason Onset Date Comments Questions 10/30/2023 Encounter Details Date Type Department Care Team (Late st Contact Info) Description 10/30/2023 Telephone [place] [phone] Christine Colby MD [facility] [place] [address] Questions Social History Tobacco Use Types Packs/Day Years Used Date Smoking Tobacco: Former Cigarettes Smokeless Tobacco: Never Alcohol Use Standard Drinks/Week Comments Yes 14 (1 standard drink = 0.6 oz pu re alcohol) [facility] Inpatient Questions Answer Date Recorded Does [...] ESTSummary: Questions Name of person calling : [facility] person calling from: N/A Who is the provider: Earnestine Have you had surgery: Yes If yes : DOS:03/11/2023 Surgeon: Earnestine Is there a new injury: No If yes, how did the new injury occur?: Best contact number: [phone] What is the question: Patient is calling [...] on filedocumented in this encounter Care Teams Household Chores Relationship Specialty Start Date End Date Osbaldo Dewitt APRN [address] [place] [phone] PCP - General Family Medicine 12/31/22 documented as of this encounter
--- OUTSIDE RECORDS SUMMARY | 2024-10-22 15:01 | XMS_ITS | Encounter Summary ---
Author Organization [facility] [place] [address] Care Team Providers Care Marine Water Tender Name Role Phone Osbaldo Dewitt APRN Primary Care Provider [phone] Encounter Details Date Type Department Care Team [...] on filedocumented in this encounter Care Teams Marine Water Tender Relationship Specialty Start Date End Date Osbaldo Dewitt APRN [address] [place] [phone] PCP - General Family Medicine 12/31/22 documented as of this encounter
--- OUTSIDE RECORDS SUMMARY | 2024-10-22 15:01 | XMS_ITS | Encounter Summary ---
[place] [address] Care Team Providers Care Upset Welding Machine Operator Name Role Phone EsdrasOsbaldo weston Ayana PAGE Primary Care Provider [phone] Encounter Details Date Type Department Care Team (Late st Contact Info) Description 03/14/2023 [place] [phone] Selene Lindsey MD [facility] DR [place] [address] Social History Tobacco Use Types Packs/Day Years [...] Selene Lindsey MD 03/14/2023 Regional Anesthesia Pager [phone] documented in this encounter Plan of Treatment Not on file documented as of this encounter Visit Diagnoses Not on filedocumented in this encounter Care Teams Upset Welding Machine Operator Relationship Specialty Start Date End Date Osbaldo Dewitt APRN [address] [place] [phone] PCP - General Family Medicine 12/31/22 documented as of this encounter
--- OUTSIDE RECORDS SUMMARY | 2024-10-22 15:01 | XMS_ITS | Encounter Summary ---
Author Organization [facility] [place] [address] Care Team Providers Care Rn Acls Name Role Phone Osbaldo Dewitt APRN Primary Care Provider [phone] Encounter Details Date Type Department Care Team [...] filedocumented in this encounter Care Teams Rn Acls Relationship Specialty Start Date End Date Osabldo Dewitt APRN [address] [place] [phone] PCP - General Family Medicine 12/31/22 documented as of this encounter
--- OUTSIDE RECORDS SUMMARY | 2024-10-22 15:01 | XMS_ITS | Encounter Summary ---
Author Organization [place] [address] Care Team Providers Care Chemist Pharmaceutical Name Role Phone Osbaldo Dewitt APRN Primary Care Provider [phone] Encounter Details Date Type Department Care Team (Late st Contact Info) Description 02/27/2023 Tele[place] [address] Christine Colby MD [facility] [place] [address] Social History Tobacco Use Types Packs/Day Years [...] on filedocumented in this encounter Care Teams Chemist Pharmaceutical Relationship Specialty Start Date End Date Osbaldo Dewitt APRN [address] [place] [phone] PCP - General Family Medicine 12/31/22 documented as of this encounter
--- OUTSIDE RECORDS SUMMARY | 2024-10-22 15:01 | XMS_ITS | Encounter Summary ---
[place] [address] Care Team Providers Care Mushroom Cultivator Name Role Phone Osbaldo Dewitt APRN Primary Care Provider [phone] Reason for Referral * Occupational Therapy (Routine) - Closed Specialty Diagnoses / Procedures Referred By Contac t Referred To Contact Occupational Therapy Diagnoses Neuralgia and neuritis Chante Salas APRN [facility] [place] [address] [address] Referral ID Status Reason Start Date Expiration Date V isits Requested Visits Authorized [id number] Closed Evaluate and Treat 06/10/2023 12/07/2023 12 12 * Diagnostic Test (Routine) - Closed Specialty Diagnoses / Procedures Referred By Contmorgan t Referred To Contact Neurology Diagnoses Neuralgia and neuritis Chante Salas APRN [facility] [place] [address] [facility] Neurology [address] [place] [phone] Referral ID Status Reason Start Date Expiration Date V isits Requested Visits Authorized [id number] Closed Test Only 06/10/2023 06/09/2024 1 1 Reason for Visit * Reason Comments Follow Up Surgery 03-11-23 L TSA Encounter Details Date Type Department Care Team (Late st Contact Info) Description 06/10/2023 8:40 AM EDT Office Visit [place] [address] Chante Salas APRN [facility] [place] [address] Status post replacement of left shoulder joint [...] NAME: Sandie Manriquez AGE: 63 y.o. MR#: [id number] DATE OF VISIT: 06/10/2023 PERTINENT SURGICAL HISTORY: [...] unspecified documented in this encounter Care Teams Mushroom Cultivator Relationship Specialty Start Date End Date Osbaldo Dewitt APRN [address] [place] [phone] PCP - General Family Medicine 12/31/22 documented as of this encounter
--- OUTSIDE RECORDS SUMMARY | 2024-10-22 15:01 | XMS_ITS | Encounter Summary ---
Author Organization [facility] [place] [address] Care Team Providers Care Hand Molder Name Role Phone Osbaldo Dewitt APRN Primary Care Provider [phone] Reason for Visit * Consultation (Routine) - Closed Specialty Diagnoses / Procedures Referred By Chance le Referred To Contact Rheumatology Diagnoses Glenohumeral arthritis, left Synovitis Rosalee Powers PA [facility] [place] [address] [facility] Rheumatology [address] [place] [phone] Referral ID Status Reason Start Date Expiration Date V isits Requested Visits Authorized [id number] Closed Consult, Test & Treat 03/25/2023 03/24/2024 1 1 Encounter Details Date Type Department Care Team (Latest Contact Info) Description 05/06/2023 11:00 AM EDT Office [place] [address] Remi Schmitt MD [facility] [place] [address] s/p left anatomic stemless TSA, [...] records available at the time of the [facility] appointment with in the medical record and [...] histories were reviewedand updated as appropriate within [facility]. Physical Exam: BP 131/72 (BP Location [...] Bunion documented in this encounter Care Teams Hand Molder Relationship Specialty Start Date End Date Osbaldo Dewitt APRN [address] [place] [phone] PCP - General Family Medicine 12/31/22 documented as of this encounter
--- OUTSIDE RECORDS SUMMARY | 2024-10-22 15:01 | XMS_ITS | Encounter Summary ---
Author Organization [place] [id number] Care Team Providers Care Jig Boring Machine Operator For Metal Name Role Phone Osbaldo Dewitt APRN Primary Care Provider Reason for Referral * Consultation (Routine) - Closed Specialty Diagnoses / Procedures Referred By Chance le Referred To Contact Orthopaedics Diagnoses Right shoulder pain, unspecified chronicity Chronic pain of both shoulders Osbaldo Dewitt APRN [address] [place] [phone] [facility] Orthopaedics [address] [place] [phone] Referral ID Status Reason Start Date Expiration Date V isits Requested Visits Authorized [id number] Closed Consult, Test & Treat PCP Updated and/or Approved 12/31/2022 12/31/2023 6 6 Encounter Details Date Type Department Care Team (Latest Contact Info) Description 12/31/2022 Transcribe Orders eDH Incoming Referrals [phone] Osbaldo Dewitt APRN [address] [place] [phone] Right shoulder pain, unspecified chronicity; [...] region documented in this encounter Care Teams Jig Boring Machine Operator For Metal Relationship Specialty Start Date End Date Osbaldo Dewitt APRN [address] [place] [phone] PCP - General Family Medicine 12/31/22 documented as of this encounter
--- OUTSIDE RECORDS SUMMARY | 2024-10-22 15:01 | XMS_ITS | Encounter Summary ---
Author Organization [facility] Address [facility] [place] [address] Care Team Providers Care Manufacturing Systems Engineer Name Role Phone Osbaldo Dewitt APRN Primary Care Provider [phone] Encounter Details Date Type Department Care Team [...] on filedocumented in this encounter Care Teams Manufacturing Systems Engineer Relationship Specialty Start Date End Date Osbaldo Dewitt APRN [address] [place] [phone] PCP - General Family Medicine 12/31/22 documented as of this encounter
--- OUTSIDE RECORDS SUMMARY | 2024-10-22 15:01 | XMS_ITS | Encounter Summary ---
Author Organization [facility] [place] [address] Care Team Providers Care Band Bias Machine Operator Name Role Phone Osbaldo Dewitt APRN Primary Care Provider [phone] Encounter Details Date Type Department Care Team (Late st Contact Info) Description 05/16/2023 Orders [place] [address] Rosalee Powers PA [facility] [place] [address] Social History Tobacco Use Types Packs/Day Years [...] on filedocumented in this encounter Care Teams Band Bias Machine Operator Relationship Specialty Start Date End Date Osbaldo Dewitt APRN [address] [place] [phone] PCP - General Family Medicine 12/31/22 documented as of this encounter
--- OUTSIDE RECORDS SUMMARY | 2024-10-22 15:01 | XMS_ITS | Encounter Summary ---
[place] [address] Care Team Providers Care Edi Consultant Name Role Phone Osbaldo Dewitt APRN Primary Care Provider [phone] Reason for Referral * Consultation (Routine) - Closed Specialty Diagnoses / Procedures Referred By Chance le Referred To Contact Rheumatology Diagnoses Glenohumeral arthritis, left Synovitis Rosalee Powers PA [facility] ORTHOP[place] [address] [facility] Rheumatology [address] [place] [phone] Referral ID Status Reason Start Date Expiration Date V isits Requested Visits Authorized [id number] Closed Consult, Test & Treat 03/25/2023 03/24/2024 1 1 Reason for Visit * Reason Comments Post Op 03-11-23 left TSA Encounter Details Date Type Department Care Team (Late st Contact Info) Description 03/25/2023 10:00 AM EDT Office Visit [place] [address] Rosalee Powers PA [facility] [place] [address] s/p left anatomic stemless TSA, [...] NAME: Sandie Manriquez AGE: 62 y.o. MR#: [id number] DATE OF VISIT: 03/25/2023 DATE OF SURGERY: [...] SURVEY RESPONSES: 03/19/2023 4:11 PM [facility] Surgical Postop Visit PROMIS-10 General Health Good [...] yes 03/19/2023 4:14 PM Orthopeadics [facility] Response ASES VAS-RIGHT 6 ASES ADL-RIGHT ARM [...] x-rays. The above documentation was completed using [employer] voice recognition software. documented in this encounter [...] have questions please contact the health career portals teacher that requested your imaging first. ? Electronically signed by: Lynda Parekh MD, [facility] ([phone]), at 04/25/2023 4:11 PM Narrative 04/25/2023 4:11 [...] who have questions please contactthe health career portals teacher that requested your imaging first. Electronically signed by: Lynda Parekh MD, [facility]([phone]), at 04/25/2023 4:11 PM Christine Colby MD IMG DX ORDERABLES * Differential, Automated (03/25/2023 11:14 AM EDT) Neutrophil % 69.7 % [facility] Neutrophil Absolute 5.69 1.70 - 6.10 x10(3)/[facility] Lymph % 15.7 % [facility] Lymphocytes Abs 1.3 0.9 - 3.2 x10(3)/[facility] Monocyte % 11.1 % [facility] Monocyte Abs 0.9 0.3 - 0.9 x10(3)/[facility] Eos % 2.4 % [facility] Eosinophils Abs 0.2 0.0 - 0.4 x10(3)/[facility] Basophil % 0.7 % [facility] Baso Absolute 0.1 0.0 - 0.1 x10(3)/[facility] Immature Gran % 0.40 % [facility] Comment: Immature granulocytes(IG's)percentage and absolute count will include metamyelocytes, myelocytes, and promyelocytes. Blood smears from CBCs yielding IG's will be scanned manually for concordance. If this scan disagrees with the automated IG or if promyelocytes are noted, a manual differential will be performed. Immature Gran Absolute 0.03 0.00 - 0.04 x10(3)/[facility] Blood 03/25/2023 11:1 4 AM EDT 03/25/2023 11:23 AM EDT Narrative Resulting Agency Comment Spec In Lab Rosalee ANDRES HEMATOLOGY ORDERABL ES [facility] [place] [address] * (ABNORMAL) Hemogram (03/25/2023 11:14 AM EDT) White Blood Cell 8.2 4.0 - 9.5 x10(3)/mc L [facility] Red Blood Cell 3.98(L) 4.00 - 5.21 x10(6)/mc L [facility] Hemoglobin 12.6 11.7 - 15.5 g/dL [facility] Hematocrit 37.3 35.7 - 45.8 % [facility] Mean Cell Volume 93.7 82.6 - 94.4 fL [facility] Mean Cell Hemoglobin 31.7 27.1 - 32.0 pg [facility] Mean Cell Hemoglobin Concentration 33.8 31.7 - 35.0 g/dL [facility] Platelet 357 145 - 357 x10(3)/mc L [facility] RDW Standard Deviation 46.3(H) 37.0 - 46.0 fL [facility] RDW coefficient of variation 13.4 11.5 - 14.1 % [facility] Mean Platelet Volume 9.7 7.6 - 12.9 fL [facility] NRBC% auto 0.0 % [facility] NRBC Absolute 0.000 0.000 - 0.000 x10(3)/mc L [facility] Blood 03/25/2023 11:1 4 AM EDT 03/25/2023 11:23 AM EDT Narrative Resulting Agency Comment Spec In Lab Rosalee ANDRES HEMATOLOGY ORDERABL ES [facility] [place] [address] * SIRE[facility] Antibody Screen (03/25/2023 11:14 AM EDT) SIRENA Ab Screen Negative Negative [facility] Comment: This antinuclear [...] performed by the Special Chemistry Laboratory at [facility]. This change in testing location is associated with a change is testing method and reference intervals. Please review the results of this test in association with the posted reference intervals. dsDNA Ab <0.6 <=15.0 IU/mL [facility] Comment: <10 negative [...] performed by the Special [facility] Laboratory at [facility]. This change in testing location is associated with a change is testing method and reference intervals. Please review the results of this test in association with the posted reference intervals. Blood 03/25/2023 11:1 4 AM EDT 03/25/2023 11:59 AM EDT Narrative Resulting Agency Comment Spec In Lab Christine Colby MD LAB SEND OUT ORDERAB LES Performing Organization Address [facility] Co de Phone Number [facility] [place] [address] * (ABNORMAL) Sedimentation rate (03/25/2023 11:14 AM EDT) Sedimentation Rate Automated 45(H) 2 - 39 mm/hr [facility] Comment: Effective September 15, 2019 new capillary photometric technology has resulted in a change in reference ranges. It is recommended that each ESR result be reviewed with its own age appropriate reference range. Blood 03/25/2023 11:1 4 AM EDT 03/25/2023 11:23 AM EDT Narrative Resulting Agency Comment Spec In Lab Christine Colby MD HEMATOLOGY ORDERABLE S Performing Organization Address [facility] de Phone Number [facility] [place] [address] * Rheumatoid factor, quant (03/25/2023 11:14 AM EDT) Rheumatoid Factor 10 <=14 IU/mL [facility] Blood 03/25/2023 11:1 4 AM EDT 03/25/2023 11:23 AM EDT Narrative Resulting Agency Comment Spec In Lab Christine Colby MD CHEMISTRY ORDERABLES Performing Organization Address [facility] Co de Phone Number [facility] [place] [address] * Cyclic Citrullinated Peptide (03/25/2023 11:14 AM EDT) Cyclic Citrulline Peptide <8.0 <=16.9 unit/mL [facility] Blood 03/25/2023 11:1 4 AM EDT 03/25/2023 11:23 AM EDT Narrative Resulting Agency Comment Spec In Lab Christine Colby MD CHEMISTRY ORDERABLES Performing Organization Address [facility]/ZIP Co de Phone Number [facility] [place] [address] * CRP, acute inflammation (03/25/2023 11:14 AM EDT) C-Reactive Protein <3.0 <=4.9 mg/L [facility] Blood 03/25/2023 11:1 4 AM EDT 03/25/2023 11:23 AM EDT Narrative Resulting Agency Comment Spec In Lab Christine Colby MD CHEMISTRY ORDERABLES [facility] [place] [address] documented in this encounter Visit Diagnoses Diagnosis s/p left anatomic stemless TSA, 03/11/23 (Dr Colby) Synovitis Synovitis and tenosynovitis, unspecified s/p left anatomic stemless TSA, 03/11/23 (Dr Colby) documented in this encounter Care Teams Edi Consultant Relationship Specialty Start Date End Date Osbaldo Dewitt APRN [address] [place] [phone] PCP - General Family Medicine 12/31/22 documented as of this encounter
== END 2024-10-22 14:57 | disposition home or self-care (01) ==
LOC: LBO 14:56
PROVIDERS: Student in an Organized Health Care Education/Training Program; PCP Nurse Practitioner Family; Visit Provider Nurse Practitioner Adult Health
DX: M17.12 Unilateral primary osteoarthritis, left knee; E66.812 Obesity, class 2; E66.09 Other obesity due to excess calories; Z68.35 Body mass index [BMI] 35.0-35.9, adult; Z00.00 Encounter for general adult medical examination without abnormal findings
CPT/HCPCS: 36415; 80048; 80053; 80061; 85027; 83036

== ENCOUNTER 2024-12-16 02:21 | Outpatient (CLI) | payer BC, SELFPAY ==
[2024-12-16 16:25] LABS: Anion Gap 10.7 mmol/L (3-11); BUN 14 mg/dL (7-18); CO2 26.3 mmol/L (21.0-32.0); CREATININE 0.8 mg/dL (0.55-1.02); Calcium 9.5 mg/dL (8.5-10.1); Chloride 104 mmol/L (98-107); Estimated GFR 81.72 (mL/min/1.73m2); Glucose 115 mg/dL (74-106); Potassium 3.9 mmol/L (3.5-5.1); Sodium 141 mmol/L (136-145)
== END 2024-12-16 02:22 | disposition home or self-care (01) ==
PROVIDERS: PCP Nurse Practitioner Family; Visit Provider Student in an Organized Health Care Education/Training Program
DX: M23.92 Unspecified internal derangement of left knee (principal)
CPT/HCPCS: 36415; 80048

== ENCOUNTER 2024-12-16 15:46 | Outpatient (CLI) | payer BC, SELFPAY ==
--- NOTE | 2024-12-16 13:55 | DI.RAD_ITS ---
Exam(s) XR STANDING ALIGNMENT EXAM: XR STANDING ALIGNMENT CLINICAL HISTORY: OA L KNEE. TECHNIQUE: 2D digital imaging was performed. Four images were obtained. COMPARISON: CR XR HIP RT COMPLETE AP PELVIS from 01/15/2023 CR XR KNEE LT 3V AP,LAT,SUKHDEV from 03/15/2024 CR XR KNEE RT 3V AP,LAT,SUKHDEV from 03/15/2024 FINDINGS: BONES: The hips are well maintained. In the left knee, there is mild spurring in the lateral femoral tibial and the medial femoral tibial joint space. The joints are otherwise well maintained. The ri ght knee is well maintained. The ankles are well maintained.The right lower extremity is 1 cm longer than the left lower extremity. SOFT TISSUE: Normal. IMPRESSION: Mild degenerative changes in the left knee. DATA REPOSITORY: RADIATION DOSE DELIVERED:
== END 2024-12-16 15:47 | disposition home or self-care (01) ==
LOC: DIORS 15:47
PROVIDERS: PCP Nurse Practitioner Family; Visit Provider Physician Assistant
DX: M17.12 Unilateral primary osteoarthritis, left knee (principal)
CPT/HCPCS: 77073

== ENCOUNTER 2024-12-29 07:24 | Day surgery (SDC) | payer BC, SELFPAY ==
[2024-12-29] VITALS (24 sets, daily range): BP systolic 117–156; BP diastolic 67–92; PULSE 47–63; RESP 9–22; TEMP 36.1–36.6; O2SAT 94–98; BMI 36.8
--- NOTE | 2024-12-29 06:28 | W.ANESPRE ---
General Info Date of Service Date Performed: 12/29/24 Height: 5 ft 8 in Weight: 109.769 kg Body Mass Index (BMI): 36.8 Surgical Procedure: Operation Date: 12/29/24 09:25 Proposed Procedure Side Surgeon p Knee Total Arthroplasty Left Clint Wells MD Meds Allergies and Home Medications Allergies Allergy/AdvReac Type Severity Reaction Status Date / Time ragweed pollen Allergy Intermediate Other (See Verified 12/29/24 07:40 Comment) Sulfa (Sulfonamide Allergy Unknown Other (See Verified 12/29/24 07:40 Antibiotics) Comment) miconazole Allergy RASH Verified 12/29/24 07:40 Home Medication ?Medication ?Instructions ?Recorded atenolol 25 mg tablet (Tenormin) 25 mg PO DAILY 11/26/22 doxycycline hyclate 20 mg tablet 40 mg PO DAILY 11/26/22 apixaban 5 mg tablet (Eliquis) 5 mg PO BID #60 tabs 09/06/23 flecainide 50 mg tablet 50 mg PO Q12H 07/26/24 albuterol sulfate 90 mcg/actuation 2 puff inhalation Q6H PRN 08/12/24 aerosol inhaler shortness of breath or wheezing #8.5 grams cholecalciferol (vitamin D3) 25 1,000 unit PO DAILY 08/13/24 mcg (1,000 unit) capsule clobetasol 0.05 % topical ointment 1 applic topical DIRECTED 09/22/24 venlafaxine 75 mg tablet 75 mg PO DAILY 09/23/24 estradiol 10 mcg vaginal insert See Rx Instructions vaginal PER 10/08/24 PKG DIR #32 inserts diltiazem HCl 240 mg capsule,24 240 mg PO DAILY 12/16/24 hr,extended release acetaminophen 500 mg tablet 1,000 mg (2 x 500 mg) PO TID #90 12/29/24 tabs dexamethasone 4 mg tablet 4 mg PO DAILY #2 tabs 12/29/24 meloxicam 15 mg tablet 15 mg PO DAILY #30 tabs 12/29/24 omeprazole 20 mg capsule,delayed 20 mg PO HS 12/29/24 release oxycodone 5 mg tablet 5 mg PO Q4H PRN pain #20 tabs 12/29/24 Current Visit Medications: Current Medications Generic Name Dose Route Start Last Admin Trade Name Freq PRN Reason Stop Dose Admin Acetaminophen 1,000 mg 12/29/24 06:00 Acetaminophen 500 Mg Tab PO 12/29/24 23:59 PREOP TAMMY Celecoxib 400 mg 12/29/24 06:00 Celecoxib 200 Mg Cap PO 12/29/24 23:59 PREOP TAMMY Gabapentin 300 mg 12/29/24 06:00 Gabapentin 300 Mg Cap PO 12/29/24 23:59 PREOP TAMMY Ringer's Solution 1,000 mls @ 80 mls/hr 12/29/24 06:00 IV 12/29/24 23:59 INFUSION TAMMY Cefazolin Sodium/Dextrose 2 gm in 50 mls @ 100 mls/hr 12/29/24 06:00 Ancef Duplex IVPB 12/29/24 23:59 PREOP TAMMY Tranexamic Acid/Sodium Chloride 1,000 mg in 100 mls @ 600 mls/hr 12/29/24 06:00 IVPB 12/29/24 23:59 PREOP TAMMY IV Miscellaneous Supplies 1 each 12/29/24 06:00 Iv Access IV 12/29/24 23:59 DIRECTED TAMMY Sodium Chloride 0 ml 12/29/24 06:00 Normal Saline Flush 10 Ml Syr IV 12/29/24 23:59 PRN PRN Sodium Chloride 0 ml 12/29/24 06:00 Normal Saline 10 Ml Vial IJ 12/29/24 23:59 DIRECTED PRN Sterile Water 0 ml 12/29/24 06:00 Water,Injection,Sterile 10 Ml Vial IJ 12/29/24 23:59 DIRECTED PRN PFSH Active Problems Active Problems: Problem Status Onset Code Arthritis of left knee Acute M17.12 Genitourinary syndrome of menopause Acute N95.8 Skin lesions Acute L98.9 Mild sleep apnea Acute G47.30 Degenerative joint disease of right knee Chronic M17.11 Left knee DJD Chronic M17.12 A-fib Chronic I48.91 New onset atrial fibrillation Acute I48.91 Right hip pain Acute M25.551 Internal derangement of left knee Acute M23.92 Traumatic tear of left rotator cuff Acute S46.012A Arthritis of right glenohumeral joint Acute M19.011 Arthritis of left glenohumeral joint Acute M19.012 Hypertension Chronic I10 Depression Chronic F32.A Medical History Medical History (Updated 12/29/24 @ 08:23 by Ema Torre RN) Obesity Diaphoresis Heart palpitations afib Cronin esophagus Rosacea Hypercholesteremia Menopausal syndrome Lichen sclerosus et atrophicus Anxiety Surgical History Surgical History (Updated 12/29/24 @ 08:23 by Ema Torre RN) Hx of shoulder replacement (B) Status post replacement of both shoulder joints (~2022) Carpal tunnel syndrome, left s/p left ECTR DOS: 03/02/24 Trigger thumb, left thumb s/p trigger thumb release DOS: 03/02/24 S/P cataract surgery (~06/2024) History of Ramy fundoplication Tobacco Smoking/Tobacco Use Status: Former Tobacco Use Passive smoking exposure: No Alcohol Alcohol Intake: current Alcohol intake frequency: a few times a month Alcohol type: wine and hard liquor Substance Use Substance use: Occasionally Substance use type: marijuana Vital Signs and Lab Results Vital Signs Most Recent Vital Signs in EMR: Temp Pulse Resp BP Pulse Ox 36.1 C L 63 16 156/92 H 97 12/29/24 07:42 12/29/24 07:42 12/29/24 07:42 12/29/24 07:42 12/29/24 07:42 Lab Results Blood Type / Crossmatch: No Data to Display Complete Blood Count: No Data to Display Complete Metabolic Panel: Sodium 141 mmol/L (136-145) 12/16/24 14:38 Potassium 3.9 mmol/L (3.5-5.1) 12/16/24 14:38 Chloride 104 mmol/L (98-107) 12/16/24 14:38 Carbon Dioxide 26.3 mmol/L (21.0-32.0) 12/16/24 14:38 BUN 14 mg/dL (7-18) 12/16/24 14:38 Creatinine 0.8 mg/dL (0.55-1.02) 12/16/24 14:38 Est GFR (CKD-EPI 2020) 81.72 (mL/min/1.73m2) 12/16/24 14:38 Calcium 9.5 mg/dL (8.5-10.1) 12/16/24 14:38 Glucose 115 mg/dL (74-106) H 12/16/24 14:38 Liver Function Panel: No Data to Display Coagulation Panel: No Data to Display Cardiac Panel: No Data to Display Arterial Blood Gas: No Data to Display Venous Blood Gas: No Data to Display Pancreas Panel: No Data to Display Thyroid Panel: No Data to Display Infectious Disease: No Data to Display Blood Cultures: No Data to Display Toxicology Panel: No Data to Display Imaging and Studies Imaging and Studies Study information below may be from another EMR and interpreted by another provider. Please see original notes in EMR for more complete details. EKG Summary: EKG PATIENT NAME: Sandie Manriquez UNIT #: [id number] ORDERING PROVIDER: Laurel Calle APRN PRIMARY CARE PROVIDER: OSBALDO CACERES NP DATE/TIME OF SERVICE: 09/05/23 1613 : 1960 PERFORMING LOCATION: [place] APPROVED REPORT Exam: Resting ECG Reason for Exam: Conversion from A fib to SR Patient Location: I HR:90 bpm ECG Measurements Heart Rate 90 AXIS WY 154 P 50 QRSd 104 QRS 46 QT 369 T41 QTc 452 Conclusion Sinus rhythm...normal P axis, V-rate 50- 99 Left atrial enlargement...P, P'>60mS, <-0.15mV V1 Otherwise normal ECG <Electronically signed by LYUDMILA GONZALEZ MD in [facility]> E-Sign Date: 09/08/23 E-Sign Time: 0835 Echocardiogram Summary: Patient Name: Sandie Manriquez Unit #: [id number] Loc: [place] Ordering Provider: Laurel Calle APRN Status: ADM IN Primary Care Provider: Osbaldo Caceres Date of Exam: 09/05/23 Sex: F Admission Date: 09/05/23 : 1960 Age: 63 APPROVED REPORT EXAM: Comprehensive 2D, Doppler, and color-flow Echocardiogram Patient Location: ER Dance Entertainer: Shaq Arrington RDCS ([place]) Indications: new onset afib Other Information Study Quality: Adequate Conclusion Borderline concentric left ventricular hypertrophy. Ejection fraction is 66%. Wall motion is normal. Diastolic function is indeterminate due to atrial fibrillation Normal right ventricular size and systolic function Left atrium is mildly dilated. Right atrium is normal in size There is no structural or hemodynamically significant valvular disease Estimated right ventricular systolic pressure is 29 mmHg Wall motion Left Ventricle The left ventricle is normal size. The left ventricular systolic function is normal. The left ventricular ejection fraction is within the normal range. Borderline concentric left ventricular hypertrophy. There is normal LV segmental wall motion. Indeterminant due to atrial fibrillation There is no ventricular septal defect visualized. LVEF is 66%. Right Ventricle The right ventricle is normal size. The right ventricular systolic function is normal. The RVSP is 29.2 mmHg. Atria Left atrium is mildly dilated. The right atrium size is normal. The interatrial septum is intact with no evidence for an atrial septal defect. Aortic Valve The aortic valve is normal in structure. There is no aortic valvular stenosis. No aortic regurgitation is present. Mitral Valve The mitral valve is normal in structure. No evidence of mitral valve stenosis. There is no mitral valve regurgitation noted. Tricuspid Valve The tricuspid valve is normal in structure. There is no tricuspid valve stenosis. Trace tricuspid regurgitation. Pulmonic Valve The pulmonary valve is normal in structure. There is no pulmonic valvular stenosis. There is no pulmonic valvular regurgitation. Great Vessels The aortic root is normal in size. The ascending aorta is normal Aortic arch is normal in caliber. IVC is normal in size and collapses >50% with inspiration. Pericardium There is no pericardial effusion. 2D Dimensions IVSD d PLAX 1.00 cm F: 0.6-1.0Ao Root d 2.85 cm F: 2.7 - 3.3 LVPW d PLAX 1.04 cm F: 0.6 - 1.0Ao Asc Diam d 3.27 cm F: 2.3 - 3.1 LVID d PLAX 3.91 cm F: 3.8 - 5.2 LVDs 2.53 cm F: 2.2 - 3.5 LV EF Teichholz 65.3 % FS35.25 % LV EDV (Teich)66.4 mL LV ESV (Teich)23.1 mL Stroke Vol Index (Teich)19.70 M-Mode TAPSE 2.61 cm (M/F) >1.7 Auto EF LV EDV V5E199.4 mLLV EDV T4E062.5 mLLV EDV BP LV ESV A4C39.0 mLLV ESV A2C42.6 mLLV ESV BP LVEF(%) A4C66.8 %LVEF(%) A2C64.9 %LVEF(%) BP LV SV A4C78.4 mlLV SV A2C78.9 mlLV SV BP LV CO A4C8.9 L/minLV CO A2C8.3 L/minLV CO BP HR O9U038.22 BPMHR U1L798.96 BPMLV EDV Index (BP) LA Volume LA Length A4C5.7 cmLA Length A2C LA Area A4C s 21.48 cm2LA Area A2C s LA Vol A4C A-L69.02 mLLA Vol A2C A-LLA Vol Biplane A-L LA Vol A4C MOD62.3 mLLA Vol A2C MODLA Vol BP MOD RA Volume RA Area A4C14.0 cm2RA ESV A4C (A-L)30.5mLRA Vol/BSA A4C A-L RA Length A4C5.5 cmRA ESV A4C (MOD)30.2mL LV Diastology MV E Vmax 0.96 (0.4-1.3 m/s) MV A Vmax 0.25 (0.4-1.3 m/s) E/A Ratio 3.8 Aortic Valve AoV Vmax1.59 m/sLVOT Vmax 1.12 m/s AoV Peak Grad10.1 mmHgLVOT Peak Grad 5.0 mmHg AoV Area (Vmax)1.95 ri9EBVW VTI0.176 m AoV VTI0.316 mLVOT Mean Grad 2.4 mmHg AoV Mean Ronn.1.20 m/sLVOT SV 48.89 mL AoV Mean Grad6.4 mmHgLVOT Diam s 1.85 cm AoV Area (VTI)1.55 cm2 Velocity Ratio 0.70 Mitral Valve MV DT 265 (160-240 msec) Pulmonary Valve PV Vmax 1.18 (0.5-1.5 m/s)RVOT Vmax 0.71 m/s PV Peak Grad 5.6 mmHgRVOT Peak Gr.2.0 mmHg PV Mean Vel0.91 m/sRVOT VTI0.133 m PV Mean Grad 3.6 mmHgRVOT Mean Gr.1.0 mmHg Tricuspid Valve RA Pressure 3.00 mmHgTR Vmax 2.56 m/s TR Peak Grad 26.2 mmHg RVSP (TR) 29.2 mmHg Ordered By: Laurel Calle APRN CC: Dictated By: Lyudmila Gonzalez M.D. 09/05/23 1318 <Electronically signed by Lyudmila Gonzalez M.D. in [place]> 09/05/23 1326 Transcribed By: Lyudmila Gonzalez MD 09/05/23 1318 This is privileged, confidential information intended only for the provider named. Any use or distribution by any person other than this provider is strictly prohibited. If you receive this report in error, please notify us immediately at [phone] and return the original report to us at the address above. Thank-you. Anesthesia Assessment and Plan Anesthesia History Personal History: PONV Family History: No Family History of Anesthesia Complications Exercise Tolerance Exercise Tolerance: Metabolic Equivalents>4 Cardiac & Pulmonary Exam Cardiac Exam: Normal S1/S2 Heart Sounds Pulmonary Exam: Clear Bilateral Breath Sounds Implantable Cardiac Device Does patient have a Pacemaker or an ICD?: No Airway Exam Known Difficult Airway: No Mallampati Class: 2 Mouth Opening: Normal (> 3cm) Thyromental Distance: Greater than 3 cm Neck Range of Motion: Full ROM Neck Circumference: Normal Teeth Condition: Normal Dentition ASA Classification ASA Score: ASA 2 Emergency Case?: No NPO Status NPO Status: NPO Clears >2 hours, Solids >8 hours Anesthesia Plan Resuscitation Status: Full Code Anesthesia Technique: Spinal Anesthesia Airway Planned: Natural Airway Pain Management: Surgeon and patient request nerve block Monitors Used: Standard Monitors Preoperative Comments:: 64 yo female for TKA. Sig PMHx: afib (atenolol, dilt, apixaban (last dose 12/24), flecainide), HTN, CAM (uses CPAP), GERD (omeprazole. s/p Ramy, has no reflux symptoms, is on the PPI due to barretts history), depression. former smoker, occ EtOH/cannabis. ECHO: LVEF 65%. no sig valve issues. Stress: LVEF 62%, no ischemia or prior infarction, normal perfusion. EKG: Sinus. Previous Anes: PONV hx. - ECTR, dex, prop, natural airway, no issues.
--- NOTE | 2024-12-29 07:15 | W.PM.DSUDISC ---
Date of service: 12/29/24 Discharge Plan Disposition Patient Disposition: Home Condition: Good Discharge Details Reason For Visit: L TKR Attending Provider: Clint Wells Primary Care Provider: Ed Florentino Home Meds and New Rx's Prescriptions: New meloxicam 15 mg tablet 15 mg PO DAILY Qty: 30 2RF acetaminophen 500 mg tablet 1,000 mg PO TID Qty: 90 3RF dexamethasone 4 mg tablet 4 mg PO DAILY Qty: 2 0RF oxycodone 5 mg tablet 5 mg PO Q4H MDD 6 tabs PRN (Reason: pain) Qty: 20 0RF Continued flecainide 50 mg tablet 50 mg PO Q12H venlafaxine 75 mg tablet 75 mg PO DAILY diltiazem HCl 240 mg capsule,extended release 24hr 240 mg PO DAILY albuterol sulfate 90 mcg/actuation HFA aerosol inhaler 2 puff inhalation Q6H PRN (Reason: shortness of breath or wheezing) Qty: 8.5 0RF clobetasol 0.05 % ointment 1 applic topical DIRECTED omeprazole 20 mg capsule,delayed release(DR/EC) 20 mg PO DAILY Qty: 90 4RF atenolol [Tenormin] 25 mg tablet 25 mg PO DAILY doxycycline hyclate 20 mg tablet 40 mg PO DAILY cholecalciferol (vitamin D3) 25 mcg (1,000 unit) capsule 1,000 unit PO DAILY estradiol 10 mcg insert See Rx Instructions vaginal PER PKG DIR Qty: 32 0RF Rx Instructions: nightly x 14 days, then 2-3 nights per week Eliquis 5 mg tablet 5 mg PO BID Qty: 60 0RF Discharge Instructions Additional Instructions: Total Knee Discharge Instructions Activity: The most important activity is to walk and to work on gentle motion (both flexion and extension). You should try to take short walks a few times a day. It is important that when resting you work on keeping the knee straight. Avoid putting a pillow behind the knee as this will encourage flexion. Work on range of motion exercises as provided by Physical Therapy. - Start outpatient physical therapy within 2 weeks. - You should wear the KAYLAN hose on both legs for 2 weeks. You may remove these at night. You may also use any compression sock in place of the KAYLAN hose. - Utilize [employer] to review exercises, see videos on exercises and obtain basic information pertaining to your surgery and your recovery. Dressing: Remove the Gee wrap by 2 days after your surgery and put on the KAYLAN stocking given to you from the hospital. Keep the surgical dressing (underneath the GEE wrap) in place for at least one week. After the first week it may be removed and replaced with light gauze and tape or nothing. The wound and dressing may get wet after 3 days but avoid soaking the dressing or otherwise it will need to be changed. Many people prefer covering the dressing with cling wrap (saran wrap) to minimize it from getting soaked. If it gets wet, just pat dry. If it starts to peel off then it will need to be changed. Medications: - You should take Tylenol and anti-inflammatory meloxicam as your primary pain control medications. - You have been prescribed a stronger pain medication Oxycodone for breakthrough pain, take as needed as prescribed. - You will continue your omeprazole to help reduce stomach acid and reflux. - You have been prescribed Gabapentin to take at night for restlessness and nerve pain. - You will be taking your apixaban for DVT prevention unless instructed otherwise. - You have also been prescribed Decadron to take to control post-operative nausea and pain. You will start this tomorrow. - If you have constipation you should take Colace or Miralax (both [id number]). It takes most people 3-4 days to have a bowel movement. Follow-up: 2 weeks If you have any acute concerns or questions, please do not hesitate to contact the office at [phone]. You may contact Dr. Wells with any questions after hours through the hospital at [phone] or on his cell phone at [phone]. Referrals: Clint Wells MD [ [facility] STAFF PHYSICIAN] - Equipment/Supplies: Walker Activity:: Activity as Tolerated Shower/Bathe:: 72 hours Diet:: As Tolerated Discharge Orders Discharge Orders: Discharge Order (Routine); Ordered 12/29/24 Ordered By: Robson Rowe DS: Diagnosis Discharge Diagnosis (1) Arthritis of left knee: Status: Acute
[2024-12-29] MEDS: Acetaminophen 500 MG TAB 1000 MG PO (08:12)
[2024-12-29] MEDS: Gabapentin 300 MG CAP PO (08:13)
[2024-12-29] MEDS: Celecoxib 200 MG CAP 400 MG PO (08:13)
[2024-12-29] MEDS: Lactated Ringers 1,000 ML 80 ML IV (08:30)
--- NOTE | 2024-12-29 08:43 | W.ANESNERVE ---
Nerve Block Single Injection Procedure Date and Time Date Performed: 12/29/24 Procedure Start: 08:35 Location Where Procedure Performed Procedure Location: Day Surgery Unit Reason Performed: Postoperative Analgesia Requesting Provider: Clint Wells Timeout Performed Timeout Performed: Yes Monitoring Used ECG, Blood Pressure and SpO2 Sterility Sterility: Hand Hygiene, Surgical Cap, Surgical Mask, Sterile Gloves and Chlorhexidine Sedation Given During Procedure Sedation Given (Indicate Dose Given): Versed IV Dose:: 2 mg Patient Mental Status Patient Mental Status: Sedate with meaningful communication Nerve Block 1st Nerve Block: Laterality: Left Block Type: Adductor Canal Ultrasound Image Saved?: Yes Needle / Catheter Used: 100mm SonoPlex II Local Anesthetic Bolus (Indicate Dose Given): Lidocaine used for local infiltration of skin and Bupivacaine 0.25% Dose:: 10 mL Additives (Indicate Dose Given): None Ultrasound: Sterile probe cover and gel used Nerve Stimulator: Supplement to Ultrasound use and No twitch or parasthesia noted < 0.5 mA Paresthesia: None Procedure Tolerated: No Complications Procedure Outcome: Successful Performed By: Jaswant Britton 2nd Nerve Block: Laterality: Left Block Type: Other (anterior femoral cutaneous nerves. ) Ultrasound Image Saved?: Yes Needle / Catheter Used: 100mm SonoPlex II Local Anesthetic Bolus (Indicate Dose Given): Bupivacaine 0.25% Dose:: 5 mL Additives (Indicate Dose Given): None Ultrasound: Sterile probe cover and gel used Nerve Stimulator: Supplement to Ultrasound use and No twitch or parasthesia noted < 0.5 mA Paresthesia: None Procedure Tolerated: No Complications Procedure Outcome: Successful Performed By: Jaswant Britton
[2024-12-29] MEDS: ceFAZolin 2 GM/50 ML BAG IVPB (09:27)
[2024-12-29] MEDS: TRANEXAMIC ACID/SOD. CHL. 1,000 MG/100 ML BAG 600 MG IVPB (09:32)
--- NOTE | 2024-12-29 10:52 | ROE_ITS ---
Operative Note Operative Note PRE-OP DIAGNOSIS: Left Knee Osteoarthritis with Valgus Deformity POST-OP DIAGNOSIS: same PROCEDURE: Left Total Knee Replacement with Intraoperative Navigation SURGEON: Clint Wells DATA ENTRY MACHINE OPERATOR: Hillary Rowe ANESTHESIA TYPE: Spinal Refer to Anesthesia Record ESTIMATED BLOOD LOSS: 100 PATHOLOGY: none sent TOURNIQUET TIME: 0 COMPLICATIONS: None Patient was transported to: PACU Patient's condition: stable Implants: 1. Depuy Attune Cementless Cruciate Retaining Femoral Component, Size 7 2. Depuy Attune Cementless Fixed Bearing Tibial Component, Size 6 3. Depuy Attune 7x6mm CR/FB Poly 4. Depuy Attune Patellar Component, Size 38 Indications: I have seen Pat in clinic for symptoms of LEFT knee arthritis, confirmed with radiographic findings. She has exhausted nonoperative methods and was having significant limitations in daily function and desired better function and less pain. I discussed the technical details of a knee replacement. I explained the risks of the procedure to include, but not limited to, bleeding, infection, pain, stiffness, fracture, damage to nerves and vessels, damage to muscles and tendons, loosening, need for repeat procedure, blood clot and cardiopulmonary demise. Despite these risks, Pat elected to proceed. Findings: There was significant signs of arthritis throughout the knee involving all 3 compartments. Procedure Description: Pat was greeted in the preoperative holding area where the correct side was identified and marked. The consent was reviewed with the patient and signed. The history and physical was updated. All questions were answered. Preoperative mediacations were administered: Acetaminophen 1000mg, Celebrex 400mg, and Gabapentin 300mg. An adductor canal block was then administered by the anesthesia team in the DSU. She was taken back to the operating room. A spinal anesthestic was then administered. The patient was placed into the supine position on the operating room table. Posts were placed for positioning during the procedure. All bony prominences were well padded. Prophylactic antibiotics in the form of Cefazolin were administered. 1g of Tranxemic Acid was given intravenously within 30 minutes of incision. The left leg was then prepped with Chloraprep and draped in a standard fashion with impervious stockinette. A second prep with Chloraprep was performed prior to application of Iodine impregnated skin p rotection. A timeout to confirm correct identity, side and site, procedure, allergies, anesthesia, and medical concerns was performed. With the knee in some flexion, a midline incision was made overlying the knee. Full thickness skin flaps were raised once the extensor mechanism was encountered. These were raised medially and laterally. Any bleeding was controlled with electrocautery. Once the extensor mechanism was fully exposed, a medial parapatellar arthrotomy was performed in a flexed position. All bleeding from the arthrotomy and the geniculate arteries was coagulated. A medial subperiosteal peel was performed with electrocautery to the midcoronal plane. The fat pad was removed while keeping the patellar tendon protected. The anterior distal femur synovium was removed for later visualization. The ACL and PCL were resected and the anterior horn of the lateral meniscus was transected. The knee was then flexed with the patella everted. Large osteophytes from the tibia were removed. Large osteophytes from the femur were removed. There was also notable synovitis seen throughout the knee which also resected. A single starting pin was then placed 1cm anterior to the PCL insertion and the notch in the direction of the femoral head. The OrthoAlign device was applied over the pin. It was oriented to be in line with the epicondylar axis and the trochlear groove. It was then pinned into place. The navigation computer was then turned on and calibrated. The distal femur cut was set at 0.5 degrees valgus and 3 degrees flexion. The distal femur cutting guide then was positioned for a 9mm cut. The distal femur was cut with an oscillating saw while protecting the soft tissues. The tibia was then addressed. The OrthoAlign device was placed over the tibial tubercle and medial tibia and secured into position. Once again, OrthoAlign was calibrated and then set for a 1 degree varus cut and 5.5 degrees of posterior slope. With this locked into position, the cut thickness stylus was used to assess cut thickness. The lateral side, most involved side, was set for a 5mm cut, corresponding to 8-9mm medially. This was then held in position and pinned into place with 2 additional pins and a cross pin for stability. The medial and lateral collateral ligaments were protected and the cut was performed. With this completed, it was assessed and noted to be of appropriate dimensions. The guide and OrthoAlign was removed. A spacer block was inserted and the knee was brought into extension to ensure enough space was present. . The Orthoalign gap balancing device was then placed in extension. This was used to ensure that the ligaments were properly balanced with up to 2 to 3 mm laxity laterally compared medially. The extension gap was measured as 20mm. Capsular tissues around the entire lateral tibial plateau were released and the IT bands were assessed a few millimeters anterior laterally. The knee was then brought into 90 degrees of flexion and the ligament sql database developer was once again placed. Under the same amount of force the flexion gap was measured. The Attune specific jig was placed and the flexion gap was made to match the extension gap. The femur was then sized as a size 7. The 4-in-1 cutting guide was the placed. An elias wing was used to confirm appropriate position of the anterior cut to avoid notching. This cutting guide was ensured to be flush on the cut surface and then pinned into place with headed pins. While protecting the soft tissues, quad tendon, and collateral ligaments, the anterior and posterior cuts were performed with a saw. The central two pins were removed and the posterior and anterior chamfers were cut next. The notch-cutting guide was placed. This was pinned to lateralize the femoral c omponent as much as possible while keeping it flush on the cut surface. This was then pinned into position. A saw was used to make the notch cut. A rasp smoothed the cut surfaces. The medial and lateral menisci were removed. A trial femoral component was then inserted, impacted down to the cut surfaces, and the lug holes were drilled. A provisional trial tibial component was placed and the knee was brought through range of motion. The polyethylene was trialed until there was good flexion and extension with excellent stability to the medial and lateral collaterals. The patella was tracking without thumbs. A size 6mm polyethylene component provided the best range of motion and stability with less than 2mm gapping with medial and lateral stress and full extension without significant hyperextension. The tibial cut surface was fully exposed. The tibia was then sized as a 6. The tibia had been previously marked during trialing to correspond to the center of the tibial component to help with rotation. The trial was aligned to this hillary, approximately rotated to the medial 1/3rd of the tibial tubercle. The trial was pinned into place. The tibia was prepared with a reamer and a keel punch and lug holes. The knee was then brought into extension and the patella was measured as 22mm. Using the patellar clamp and cut guide, this was resected to a flat surface with at least 13mm of thickness remaining. The size 38 patella fit the best. This was oriented and then clamped into position. The lugs were drilled. The trial components were removed. The final components were opened on the back table. The periosteal and capsular tissues, especially posteriorly, around the knee were then systematically injected with a periarticular cocktail consisting of 246mg of Ropivacaine, 0.5mg of Epinephrine, 0.08mg of Clonidine, and 30mg of Ketorolac, diluted to 100cc. On the back table, with the implants opened, the cement was mixed. One batch of high viscosity cement was prepared with vacuum assistance. After the cement was ready a small amount was placed on the cut surface of the patella and the patellar button was clamped into position and held. While the cement was hardening, the cementless knee components were placed. Starting with the tibial component, the tibia was subluxed anteriorly and the lug holes of the component were lined up. The tibia was then impacted with an impactor and mallet until the tibial component was in contact with the tibia. Then, the femoral component was inserted. The lug holes were aligned and the component was impacted into position. The final polyethylene component was inserted. The knee was irrigated with Surgiphor Betadine solution. This was allowed to sit in the knee for 3 minutes and then it was thoroughly irrigated out with saline. After the cement had finally cured, approximately 15min, the clamp was removed from the patella and the knee was taken through range of motion. The patella was tracking with a no-thumbs technique. The capsule was then reapproximated with a No. 1 Vicryl at multiple locations. The capsule was finally closed with a No. 2 Stratafix, barbed suture. Deep tissues were then reapproximated with 0 Vicryl and 2-0 Vicryl. The skin was closed with a running 3-0 Monocryl in a subcuticular fashion. This was reinforced with skin glue. A Mepilex silver dressing was applied along with a [id number] WALE wrap. A CryoCuff was applied. Pat was transferred to the hospital bed without difficulty an suffering no apparent complication. Pat has a good prognosis. Physical therapy will start today and without restrictions, weight-bearing as tolerated. Her home dose of Eliquis will be used for DVT prophylaxis. Date of Procedure: 12/29/24
[2024-12-29] MEDS: fentaNYL 100 MCG/2 ML VIAL IVP (11:31)
--- NOTE | 2024-12-29 11:43 | W.ANESPOSTOP ---
Postoperative Evaluation Date, Time and Location Date Performed: 12/29/24 Time Performed: 11:44 Patient Location: PACU Vital Signs Most Recent Imported Vital Signs: Most Recent Vital Signs Temp Pulse Resp BP Pulse Ox 36.3 C L 47 L 12 127/74 94 12/29/24 11:27 12/29/24 11:41 12/29/24 11:41 12/29/24 11:41 12/29/24 11:41 Pain Score Most Recent Pain Score: Most Recent Pain Score Pain Level 2 12/29/24 11:37 Assessment Mental Status: Awake (Alert & Oriented to Patient Baseline) Airway and Respiratory Function: Patent airway with normal (patient baseline) respiratory exam Cardiovascular Function: Hemodynamically Stable Hydration Status: Adequately Hydrated Nausea & Vomiting: No Nausea or Vomiting Pain: Pain is tolerable per patient (spinal still waning. ) Peripheral Nerve Block: Regional nerve block not resolved at time of post operative discharge
[2024-12-29] MEDS: oxyCODONE 5 MG TAB PO (12:18)
--- NOTE | 2024-12-29 14:18 | IN_ITS ---
PT Notes Visit Reasons: L TKR Physical Therapy Day Surgery Initial Evaluation Date: 12/29/24 Referring Doctor: DMITRY Krishnamurthy PT Orders: PT CONSULT: s/p left TKA Precautions: standard Patient Profile/Admitting Diagnosis: Patient seen in Day Surgery unit following left TKA, post op day #0. Social History/Home Situation: Patient resides in a private home with 6 LOLLY. Lives with her partner, Carson, who is present and supportive during evaluation. Equipment Owned/DME: raised toilet seat, grab bars at toilet Subjective: Pat states that she's had many years of bilat knee pain, and has not been able to straighten her left knee for a long time. Right knee is painful, but stable. Objective: General Observation: Resting in bed, with cryocuff in place to left knee. Mental Status: A&Ox3 Pain: well managed ROM: Right Upper Extremity: WFL Left Upper Extremity: WFL Right Lower Extremity: 0-95* demonstrated functionally Left Lower Extremity: Demonstrates full knee extension in supine. Flexes to 90* in sitting position. Strength: Right Upper Extremity: WFL Left Upper Extremity: WFL Right Lower Extremity: Hip flexion 5/5. Quads 5/5. HS 4+/5. DF 5/5. Left Lower Extremity: Able to pump ankle. Demonstrates SLR without extension lag. Sensation: intact distally Bed Mobility/Transfers: Supine to sit : supervision Sit to stand supervision with cues for technique Stand to sit : supervision with cues for technique Bed to chair : CGA with FWW Gait: Ambulates 100'x2, with FWW and CGA initially; SBA by end of session. Cues for equipment management. Stairs: managed therapeutic stairs, 4 x 3, 6 x 2, ascending and descending x 2 with bilat rails and cues for technique. Toileting: Able to toilet with supervision only, cues for technique Dressing: Able to dress her lower half with cues for technique, no assistance provided Balance: Static Sitting: normal Dynamic Sitting: normal Static Standing: fair Dynamic Standing: fair Special Tests: Mobility Limitations Standardized Measure [] [facility] 6 clicks Basic Mobility Inpatient Short Form: [] Raw Score: 22 CMS Score: 26% impairment Informed Consent/Education: Patient instructed in purpose of PT consult. Packet containing [] exercise protocol has been given to patient. Education and training on initial set of exercises that can be done at home have been completed with patient. Treatment: Initial Evaluation (37446) Therapeutic Exercises (65386): Instructed in the following: ankle pumps 10x quad sets 10x glute sets 10x SLR 10x as tolerated heel slides 10x Assessment: Patient referred for PT following left TKA, post op day #0. She presents with clinical signs and symptoms consistent with current/admitting diagnoses that have resulted to mobility limitations, gait instability, generalized weakness, and impairment of motor control. She requires FWW for safe ambulation, and was issued device today. She demonstrated by the following impairment level findings: 1. Decreased strength to left knee major muscle groups 2. Impaired standing balance 3. Limitation of joint range of motion in left knee Impairments are contributing to the following functional limitations: 1. Inability to safely ambulate without assistive device 2. Increase completion time for mobility ADL performance 3. Increased fall risk Patient is assessed as low complexity based on the following: History: As above. complicating factor of right knee dysfunction Examination: Demonstrable impairment in strength, balance, and mobility level with underlying impairments and functional limitations as documented above Presentation: stable Decision Making: low Goals: N/A. PT evaluation and 1-2 treatment sessions only for functional mobility training using recommended AD and for HEP instruction. Plan of Care/Treatment Plan: N/A. PT evaluation and 1-2 treatment session only for functional mobility training using recommended AD and for HEP instruction. DISCHARGE RECOMMENDATIONS: Home with FWW and outpatient PT per ortho recommendation. TREATMENT CODE/TIME: 47448, 16402 ([id number]) Thank you for the opportunity to participate in the care of this patient. [facility] All Active Problems (Updated 12/29/24 @ 08:23 by Ema Torre RN) History of total left knee replacement (Acute 12/29/24) Genitourinary syndrome of menopause (Acute) Skin lesions (Acute) Mild sleep apnea (Acute) Degenerative joint disease of right knee (Chronic) 80 mg Depo-Medrol injection: 07/26/2024; 03/15/2024 Left knee DJD (Chronic) A-fib (Chronic) Dx 2022 New onset atrial fibrillation (Acute) Right hip pain (Acute) Internal derangement of left knee (Acute) 80 mg Depo-Medrol injection: 07/26/2024; 03/15/2024 Traumatic tear of left rotator cuff (Acute) Arthritis of right glenohumeral joint (Acute) Arthritis of left glenohumeral joint (Acute) Hypertension (Chronic) Depression (Chronic) Medical History (Updated 12/29/24 @ 08:23 by Ema Torre RN) Obesity Diaphoresis Heart palpitations afib Cronin esophagus Rosacea Hypercholesteremia Menopausal syndrome Lichen sclerosus et atrophicus Anxiety Surgical History (Updated 12/29/24 @ 08:23 by Ema Torre RN) Hx of shoulder replacement (B) Status post replacement of both shoulder joints (~2022) Carpal tunnel syndrome, left s/p left ECTR DOS: 03/02/24 Trigger thumb, left thumb s/p trigger thumb release DOS: 03/02/24 S/P cataract surgery (~06/2024) History of Ramy fundoplication
== END 2024-12-29 15:15 | disposition home or self-care (01) ==
LOC: SUR 07:24
PROVIDERS: PCP Nurse Practitioner Family; Visit Provider Student in an Organized Health Care Education/Training Program
PROC: (CPT 27447; principal; 2024-12-29 09:15)
DX: M17.12 Unilateral primary osteoarthritis, left knee (principal); G89.18 Other acute postprocedural pain
CPT/HCPCS: 27447; 20985; 64447; 64450; 97161; 97530; C1776; J0665; J0690; J1100; J2250; J2371; J2401; J2405; J2704; J3010

== ENCOUNTER 2025-01-10 15:30 | Outpatient (CLI) | payer BC, SELFPAY ==
--- NOTE | 2025-01-10 13:00 | DI.RAD_ITS ---
Exam(s) XR KNEE LT 1V XR STANDING ALIGNMENT EXAM: XR STANDING ALIGNMENT CLINICAL HISTORY: 1ST POST OP S/P L TKA. TECHNIQUE: 2D digital imaging was performed. Standing AP views were performed from the pelvis throu gh the ankles. COMPARISON: CR XR STANDING ALIGNMENT from 12/16/2024 CR XR KNEE LT 1V from 01/10/2025 FINDINGS: BONES: No acute fracture is present. No bony destructive lesion is seen. Leg length discrepancy: No significant overall leg length discrepancy. JOINTS: Knees: A total left knee prosthesis has been placed since the prior exam. The alignment appe ars satisfactory. The right knee joint spaces are maintained. The ankle joints are unremarkable. The hip joints are unremarkable. SOFT TISSUE: Left lower extremity edema. IMPRESSION: Status post placement of left knee prosthesis. No significant leg length discrepancy. DATA REPOSITORY: RADIATION DOSE DELIVERED:
== END 2025-01-10 15:31 | disposition home or self-care (01) ==
LOC: DIORS 15:30
PROVIDERS: PCP Nurse Practitioner Family; Visit Provider Student in an Organized Health Care Education/Training Program
DX: Z96.652 Presence of left artificial knee joint (principal); Z47.1 Aftercare following joint replacement surgery
CPT/HCPCS: 73560; 77073

== ENCOUNTER 2025-09-21 12:31 | Outpatient (REF) | payer BC, SELFPAY ==
--- NOTE | 2025-09-21 11:20 | PAPFT_PTH ---
PATIENT: Sandie Manriquez LOC: [facility] U#:[id number] AGE/SX: 65/F ROOM: RE09/21/[address]: Ed Bryant DNP : 1960 BED: DIS: 09/21/2025 SPEC #: [id number] RECD: 09/22/25 13:28 STATUS: JUANA REQ #: [id number] DOUGLAS: 09/21/25 11:[address]: Ed Florentino DEPT: [facility] Cytology RECD BY: Eneida Shukla Tissues: 1 - CX/ENDOCX FOR PAP SMEARS Procedures: PAP THIN PREP/UVM Screening HPV DNA PROBE Comments: [id number] (HPV 16 & 18/45)
== END 2025-09-21 12:32 | disposition home or self-care (01) ==
LOC: LBN 12:31
PROVIDERS: PCP Nurse Practitioner Family; Visit Provider Nurse Practitioner Family
DX: Z12.4 Encounter for screening for malignant neoplasm of cervix (principal)
CPT/HCPCS: 88142; 87624

== ENCOUNTER 2025-09-26 09:25 | Outpatient (CLI) | payer BC, SELFPAY ==
--- NOTE | 2025-09-26 09:15 | RT.EKG_ITS ---
APPROVED REPORT Exam: Resting ECG Reason for Exam: afib Patient Location: O HR:56 bpm ECG Measurements Heart Rate 56 AXIS DC 193 P 3 QRSd 115 QRS 20 QT 449 T 29 QTc 434 Conclusion Sinus rhythm...normal P axis, V-rate 50- 99 Normal Electrocardiogram
== END 2025-09-26 09:26 | disposition home or self-care (01) ==
LOC: DI.CARD 09:26
PROVIDERS: PCP Nurse Practitioner Family; Visit Provider Registered Nurse
DX: I48.91 Unspecified atrial fibrillation (principal); Z79.899 Other long term (current) drug therapy
CPT/HCPCS: 93010